=== PATIENT | female | born 1985 | race Caucasian/White ===

== ENCOUNTER 2020-08-27 00:19 | Observation (INO) ==
[2020-08-27] MEDS ORDERED: ONDANSETRON INJ 2 MG/ML 2 ML VIAL IV STA (00:45)
[2020-08-27] MEDS ORDERED: CAPSAICIN CR 0.075% 60 GM TUBE EXT STA (00:45)
[2020-08-27] MEDS ORDERED: MULTI-VITAMIN INFUSION 10 ML, THIAMINE HCL 100 MG, FOLIC ACID 1 MG in SODIUM CHLORIDE 0... IV ONE (00:45)
[2020-08-27] MEDS ORDERED: cloNIDine HCL 0.3 MG/24 HR TRANSDERM SYS TD STA (00:45)
[2020-08-27] MEDS ORDERED: MAGNESIUM SULFATE / D5W 1 GM/100 ML BAG IV STA (00:46)
[2020-08-27] MEDS ORDERED: FAMOTIDINE 20MG IV PUSH 20 MG/5 ML SYR IV STA (00:50)
[2020-08-27] MEDS ORDERED: SODIUM CHLORIDE 0.9% 1000ML 1,000 ML IV ONE ×3 (00:51→03:31)
--- NOTE | 2020-08-27 01:03 | Emergency Department Note ---
Impression & Plan Alcohol withdrawal, Alcohol intoxication, Low bicarbonate level, Acute hyponatremia ED Provider Note NAME: PHILLIP AMARO AGE: 35 SEX: F : 1985 ARRIVES VIA: Walk-In INFORMANT: Patient, friend ED PROVIDER(S): Brodie Stroud MD CHIEF COMPLAINT: vomiting HPI: This is a 35-year-old female who has a history of PTSD as well as alcohol withdrawal. [facility] to [facility]. She reports she received a liter of normal saline bolus and some Zofran however they discharged her and the patient continued to vomit. [facility] that the last time she was here she saw casework manager who was able to get her into [facility] [place] for detox. She reports her last alcoholic drink was this morning. In addition the patient reports she is also previously had a seizure from alcohol withdrawal. She has not taken anything for the vomiting prior to arrival. Upon arrival to the emergency department the patient vomited here. Her significant other reports that the patient [facility] The patient reports she has a history of pancreatitis as well. ROS: See above HPI for pertinent positives & negatives. A total of 10 systems reviewed and were otherwise negative. PAST MEDICAL HISTORY: See Below PAST SURGICAL HISTORY: See Below FAMILY HISTORY: See Below SOCIAL HISTORY: See Below HOME MEDICATIONS: See Below ALLERGIES: See Below VITALS: See Below PHYSICAL EXAMINATION: VITAL SIGNS - Vital signs and nursing notes were reviewed. GENERAL - 35-year-old female appearing stated age who is in no acute distress. SKIN - Without rashes. HEAD - NC/AT. EYES - PERRL with EOMI bilaterally. Sclera anicteric. Palpebral conjunctiva pink and moist with no injection noted. EARS - No deformities of external structures noted on gross examination bilaterally. NOSE - Midline and without cyanosis. No epistaxis or purulent drainage noted. Septum midline without deviation or septal hematoma noted. MOUTH/OROPHARYNX - Without perioral cyanosis. Buccal mucosa pink and moist and without leukoplakia. Tongue midline with equal elevation of palate bilaterally. No tonsillar hypertrophy, erythema, or exudates noted. NECK - Neck with FROM. Supple to palpation. No nuchal rigidity. LUNGS - Chest wall symmetric without accessory muscle use, intercostals retractions, or central cyanosis. Normal vesicular breath sounds CTA B/L. No wheezes, rales, or rhonchi appreciated. CARDIAC - RRR with S1/S2. No murmur, rubs, or gallops appreciated. ABDOMEN - Abdominal contour without pulsations or visible masses. BS normoactive all four quadrants. No tenderness, palpable masses, hepatosplenomegaly, or ascites noted. EXTREMITIES - No clubbing or peripheral cyanosis. No pretibial edema present. +3/5 radial, posterior tibial, and dorsalis pedis pulses palpated throughout. +5/5 strength noted in UE/LE bilaterally. NEUROLOGIC - Cranial nerves II through XII grossly intact. Sensory intact to light touch throughout. Patellar reflexes +2/4. PSYCH - A&Ox3 and cooperates fully with examiner. Pt is very pleasant and interacts well with examiner. MEDICAL DECISION MAKING: Patient was seen and evaluated as above in room C7. Review was performed of nursing notes and vital signs. I did review pertinent previous visits and patient history. After obtaining a thorough history and physical examination the above work up was performed. This is a 35-year-old female who presents emergency department complaining about alcohol withdrawal. The patient is tachycardic upon arrival to the emergency department. She does have a history of seizures previously. Her CO2 was found to be 8 therefore VBG was drawn which did confirm a low CO2 level. Serum osmolality is unexpectedly high. She was given 3 L of fluid here in the emergency department as well as a banana bag. She was given Ativan as well as a clonidine patch droperidol as well as Benadryl for headache. Repeat examination revealed improvement the patient's symptoms. I did discuss the case with the hospitalist who did agree to admit the patient. Patient is in agreement with the treatment plan. An order was placed for continuous cardiac monitoring. The monitor shows a rate of 135 with Sinus tach rhythm. The patient was evaluated during a period of high volume and high acuity during the global COVID-19 pandemic, and that diagnosis was suspected/considered upon their initial presentation. Their evaluation, treatment and testing was consistent with current guidelines for patients who present with complaints or symptoms that may be related to COVID-19. Patient was seen while provider was wearing PPE. Triage Nursing notes reviewed. Prior medical records reviewed Vital Signs: reviewed and remarkable for no significant abnormalities Differential diagnosis: Alcohol intoxication, toxicologic, infection, hypoglycemia, electrolyte abnormalities, cardiac sources, intracerebral event, neurologic, trauma, as well as other pathologies. ER treatment provided: See below Diagnostics interpreted by me: ECG: EKG shows a sinus tachycardia ST and T wave abnormality QTC is 516 ventricular rate is 111 EKG is compared to 05/27/2018 no significant change was found. Laboratory studies: As stated above and show below. Imaging studies: CT chest with contrast: Suboptimal timing of contrast bolus significantly limits evaluation for pulmonary embolism. No evidence of central pulmonary embolism. Segmental and smaller emboli cannot be excluded. Mural thickening of distal esophagus and there is probable small sliding hiatal hernia. Findings are most suspicious for reflux esophagitis. Consider nonemergent correlation with endoscopy or upper GI series as clinically warranted. no aortic aneurysm or dissection Lungs are clear. Scoliosis. CT abdomen pelvis with contrast: Hepatic steatosis. Colonic interposition. No free air or free fluid. No bowel obstruction. Hyperdense material within the appendix, but no evidence of acute appendicitis. IUD. Small organs otherwise unremarkable scoliosis grade 1 spondylitic An terolisthesis of L5 and S1 Consultation(s): Internal Medicine ED COURSE: Critical Care: I have personally spent greater than 30 minutes of critical care time in the direct management of this patient. This includes bedside care, interpretation of diagnostic studies, and testing, discussion with consultants, patient, and family members, and other required patient management activities. This 30 minutes is in excess of all separately billable procedures. Past Med/Surg History Medical History (Updated 08/27/20 @ 06:17 by Nicolas Lao MD) Alcohol abuse Anxiety with depression Hepatic steatosis No pertinent family history Pancreatitis PTSD (post-traumatic stress disorder) Surgical History Previous section Social History Smoking Status: Never smoker Preferred Language: Kinyarwanda Feels Safe at Home: Yes Allergies Allergies Allergy/AdvReac Type Severity Reaction Status Date / Time No Known Allergies Allergy Unverified 08/27/20 01:26 Home Meds Home Medications Medication Instructions Recorded Confirmed gabapentin 300 mg PO TID 05/27/18 08/27/20 hydroxyzine pamoate [Vistaril] 50 mg PO TID 05/27/18 08/27/20 multivitamin 1 tab PO QAM 05/27/18 08/27/20 linaclotide [Linzess] 145 mcg PO DAILY 07/10/20 08/27/20 prazosin 3 mg PO HS 07/10/20 08/27/20 cyclobenzaprine 10 mg PO BID PRN 08/27/20 08/27/20 duloxetine 60 mg PO DAILY 08/27/20 08/27/20 naltrexone 25 mg PO DAILY 08/27/20 08/27/20 pantoprazole 20 mg PO DAILY 08/27/20 08/27/20 quetiapine 200 mg PO HS 08/27/20 08/27/20 Results & Data (ED) Vital Signs Vital Signs - 24 hr 08/27/20 00:28 08/27/20 00:30 08/27/20 00:46 Temperature 36.6 C Temperature Source Temporal Artery Scan Pulse Rate 135 H 119 H Pulse Rate [Right Finger] Pulse Rate from SpO2 Sensor 123 H Respiratory Rate 20 18 Respiratory Effort / Characteristics Non-Labored Spontaneous Respiratory Depth Respiratory Pattern Regular Rapid/Shallow Blood Pressure 151/104 H 151/105 H Blood Pressure [Right Arm] Blood Pressure Mean 119 120 Blood Pressure Mean [Right Arm] Blood Pressure Position [Right Arm] Pulse Oximetry 97 99 Oxygen Delivery Method Room Air Room Air Room Air Sepsis Recent Fever Within 48 Hours No Sepsis New/Unexplained Change in Mental Status N/A Sepsis Action Taken by Nursing No Action Required 08/27/20 00:59 08/27/20 01:48 08/27/20 02:23 Temperature Temperature Source Pulse Rate 119 H 112 H 116 H Pulse Rate [Right Finger] Pulse Rate from SpO2 Sensor 118 H 113 H 117 H Respiratory Rate 18 17 14 Respiratory Effort / Characteristics Respiratory Depth Respiratory Pattern Blood Pressure 154/102 H 160/108 H 179/99 H Blood Pressure [Right Arm] Blood Pressure Mean 119 125 125 Blood Pressure Mean [Right Arm] Blood Pressure Position [Right Arm] Pulse Oximetry 99 99 99 Oxygen Delivery Method Room Air Room Air Room Air Sepsis Recent Fever Within 48 Hours Sepsis New/Unexplained Change in Mental Status Sepsis Action Taken by Nursing 08/27/20 02:30 08/27/20 03:00 08/27/20 03:30 Temperature Temperature Source Pulse Rate 122 H 110 H 118 H Pulse Rate [Right Finger] Pulse Rate from SpO2 Sensor 123 H 111 H 118 H Respiratory Rate 14 21 27 H Respiratory Effort / Characteristics Respiratory Depth Respiratory Pattern Blood Pressure 155/108 H 176/107 H 143/88 H Blood Pressure [Right Arm] Blood Pressure Mean 123 130 106 Blood Pressure Mean [Right Arm] Blood Pressure Position [Right Arm] Pulse Oximetry 99 98 99 Oxygen Delivery Method Room Air Room Air Room Air Sepsis Recent Fever Within 48 Hours Sepsis New/Unexplained Change in Mental Status Sepsis Action Taken by Nursing 08/27/20 03:59 08/27/20 04:00 08/27/20 04:30 Temperature Temperature Source Pulse Rate 118 H 119 H 115 H Pulse Rate [Right Finger] 113 H Pulse Rate from SpO2 Sensor 118 H 118 H 114 H Respiratory Rate 24 28 H 24 Respiratory Effort / Characteristics Respiratory Depth Normal Respiratory Pattern Blood Pressure 146/88 H 145/86 H 140/88 Blood Pressure [Right Arm] 140/88 Blood Pressure Mean 107 105 105 Blood Pressure Mean [Right Arm] 105 Blood Pressure Position [Right Arm] Sitting Pulse Oximetry 99 99 99 Oxygen Delivery Method Room Air Room Air Room Air Sepsis Recent Fever Within 48 Hours Sepsis New/Unexplained Change in Mental Status Sepsis Action Taken by Nursing 08/27/20 05:00 08/27/20 05:30 08/27/20 05:52 Temperature Temperature Source Pulse Rate 110 H 106 H 109 H Pulse Rate [Right Finger] Pulse Rate from SpO2 Sensor 110 H 108 H 109 H Respiratory Rate 26 H 25 H 18 Respiratory Effort / Characteristics Respiratory Depth Respiratory Pattern Blood Pressure 149/86 H 140/86 120/67 Blood Pressure [Right Arm] Blood Pressure Mean 107 104 84 Blood Pressure Mean [Right Arm] Blood Pressure Position [Right Arm] Pulse Oximetry 99 99 99 Oxygen Delivery Method Room Air Room Air Room Air Sepsis Recent Fever Within 48 Hours Sepsis New/Unexplained Change in Mental Status Sepsis Action Taken by Nursing 08/27/20 06:00 Temperature Temperature Source Pulse Rate 108 H Pulse Rate [Right Finger] Pulse Rate from SpO2 Sensor 109 H Respiratory Rate 21 Respiratory Effort / Characteristics Respiratory Depth Respiratory Pattern Blood Pressure 127/73 Blood Pressure [Right Arm] Blood Pressure Mean 91 Blood Pressure Mean [Right Arm] Blood Pressure Position [Right Arm] Pulse Oximetry 99 Oxygen Delivery Method Room Air Sepsis Recent Fever Within 48 Hours Sepsis New/Unexplained Change in Mental Status Sepsis Action Taken by Nursing Laboratory Data Result diagrams: 08/27/20 01:34 08/27/20 01:34 Lab Results 05/30/21 05/30/21 05/30/21 Range/Units 01:34 01:34 01:34 WBC 12.80 H (4.8-10.8) K/uL RBC 4.77 (4.2-5.4) M/uL Hgb 15.4 (12.0-16.0) g/dL POC Hgb (12.0-16.0) g/dl Hct 45.1 (37-47) % POC Hct (37-47) % MCV 94.5 (80-100) fL MCH 32.3 (25-34) pg MCHC 34.1 (32-36) g/dL RDW Std Deviation 52.7 H (36.4-46.3) fL RDW Coeff of [place] 15.1 H (11.5-14.5) % Plt Count 291 (130-400) K/uL MPV 10.3 (7.4-10.4) fL Immature Gran % (Auto) 0.2 % Neut % (Auto) 88.8 % Lymph % (Auto) 7.1 % [place] % (Auto) 3.7 % Eos % (Auto) 0.0 % Baso % (Auto) 0.2 % Neut # (Auto) 11.38 H (1.4-6.5) K/uL Lymph # (Auto) 0.91 L (1.2-3.4) K/uL [place] # (Auto) 0.47 (0.11-0.59) K/uL Eos # (Auto) 0.00 (0-0.5) K/uL Baso # (Auto) 0.02 (0-0.2) K/uL Immature Gran # (Auto) 0.02 (0.00-0.02) K/uL POC pH (7.35-7.45) POC pCO2 (35-46) mmHg POC pO2 (80-95) mmHg POC HCO3 (19-24) gina/L POC Total CO2 (24-31) mmol/L POC Base Excess (-9-1.8) gina/L POC ABG O2 Sat (90-95) % VBG pH (7.36-7.41) VBG pCO2 (38-50) mmHg VBG pO2 mmHg VBG HCO3 mmol/L VBG O2 Saturation % VBG Base Excess mEq/L Barometric Pressure mm/Hg POC Sodium (135-144) mmol/L Sodium (136-145) mmol/L POC Potassium (3.3-5.0) mmol/L Potassium (3.5-5.1) mmol/L Chloride (98-107) mmol/L Carbon Dioxide (21-32) mmol/L Anion Gap (3-11) BUN (7-18) mg/dl Creatinine (0.6-1.2) mg/dl Est Cr Clr Drug Dosing ml/min Est GFR ( Amer) ml/min Est GFR (Non-Af Amer) ml/min BUN/Creatinine Ratio (10-20) Glucose (70-99) mg/dl Osmolality (280-300) mOsm/kg Calcium (8.5-10.1) mg/dl Magnesium (1.8-2.4) mg/dl Total Bilirubin (0.2-1) mg/dl AST (15-37) U/L ALT (12-78) U/L Alkaline Phosphatase (45-117) U/L Total Creatine Kinase (26-192) U/L CK-MB (CK-2) (0.5-3.6) ng/ml CK/CKMB % Calc (0-3.0) Troponin I (0-0.045) ng/ml Total Protein (6.4-8.2) gm/dl Albumin (3.4-5.0) gm/dl Globulin (2.5-4.0) gm/dl Albumin/Globulin Ratio (0.9-2) Lipase (73-393) U/L HCG, Qual Negative (Negative) Urine Color Urine Appearance (Clear) Urine pH (4.5-7.5) Ur Specific [place] (1.000-1.030) Urine Protein (Negative) Urine Glucose (UA) (Negative) Urine Ketones (Negative) Urine Blood (Negative) Urine Nitrite (Negative) Urine Bilirubin (Negative) Urine Urobilinogen (Negative) Ur Leukocyte Esterase (Negative) Urine WBC (Auto) (0-5) /hpf Urine RBC (Auto) (0-4) /hpf U Hyaline Cast (Auto) (0-5) /lpf U Epithel Cells (Auto) (0-5) /lpf Urine Bacteria (Auto) (Negative) Urine Opiates Screen (Neg) Ur Methadone, Qual (Neg) Urine Barbiturates (Neg) Ur Phencyclidine (PCP) (Neg) U Amphetamin/Meth Scrn (Neg) MDMA (Ecstasy) Screen (Neg) U Benzodiazepines Scrn (Neg) Ur Cocaine Metabolite (Neg) U Marijuana (THC) Screen (Neg) Ethyl Alcohol mg/dL 115.0 H (0-3) mg/dl COVID-19 Eval Order SARS-CoV-2 (PCR) (Negative) 08/27/20 08/27/20 08/27/20 Range/Units 01:34 01:34 01:58 WBC (4.8-10.8) K/uL RBC (4.2-5.4) M/uL Hgb (12.0-16.0) g/dL POC Hgb (12.0-16.0) g/dl Hct (37-47) % POC Hct (37-47) % MCV (80-100) fL MCH (25-34) pg MCHC (32-36) g/dL RDW Std Deviation (36.4-46.3) fL RDW Coeff of Dallin (11.5-14.5) % Plt Count (130-400) K/uL MPV (7.4-10.4) fL Immature Gran % (Auto) % Neut % (Auto) % Lymph % (Auto) % [place] % (Auto) % Eos % (Auto) % Baso % (Auto) % Neut # (Auto) (1.4-6.5) K/uL Lymph # (Auto) (1.2-3.4) K/uL [place] # (Auto) (0.11-0.59) K/uL Eos # (Auto) (0-0.5) K/uL Baso # (Auto) (0-0.2) K/uL Immature Gran # (Auto) (0.00-0.02) K/uL POC pH (7.35-7.45) POC pCO2 (35-46) mmHg POC pO2 (80-95) mmHg POC HCO3 (19-24) gina/L POC Total CO2 (24-31) mmol/L POC Base Excess (-9-1.8) gina/L POC ABG O2 Sat (90-95) % VBG pH (7.36-7.41) VBG pCO2 (38-50) mmHg VBG pO2 mmHg VBG HCO3 mmol/L VBG O2 Saturation % VBG Base Excess mEq/L Barometric Pressure mm/Hg POC Sodium (135-144) mmol/L Sodium 129 L (136-145) mmol/L POC Potassium (3.3-5.0) mmol/L Potassium 5.0 (3.5-5.1) mmol/L Chloride 98 (98-107) mmol/L Carbon Dioxide 8 L* (21-32) mmol/L Anion Gap 23.0 H (3-11) BUN 9 (7-18) mg/dl Creatinine 0.96 (0.6-1.2) mg/dl Est Cr Clr Drug Dosing 103.2 ml/min Est GFR ( Amer) 88.2 ml/min Est GFR (Non-Af Amer) 76.1 ml/min BUN/Creatinine Ratio 9.0 L (10-20) Glucose 83 (70-99) mg/dl Osmolality 316 H (280-300) mOsm/kg Calcium 8.7 (8.5-10.1) mg/dl Magnesium 2.2 (1.8-2.4) mg/dl Total Bilirubin 0.9 (0.2-1) mg/dl AST 129 H (15-37) U/L ALT 94 H (12-78) U/L Alkaline Phosphatase 90 (45-117) U/L Total Creatine Kinase 112 (26-192) U/L CK-MB (CK-2) 1.4 (0.5-3.6) ng/ml CK/CKMB % Calc 1.3 (0-3.0) Troponin I < 0.015 (0-0.045) ng/ml Total Protein 9.6 H (6.4-8.2) gm/dl Albumin 4.8 (3.4-5.0) gm/dl Globulin 4.8 H (2.5-4.0) gm/dl Albumin/Globulin Ratio 1.0 (0.9-2) Lipase 75 (73-393) U/L HCG, Qual (Negative) Urine Color Yellow Urine Appearance Cloudy A (Clear) Urine pH 5.0 (4.5-7.5) Ur Specific [place] 1.032 H (1.000-1.030) Urine Protein 3+ H (Negative) Urine Glucose (UA) Negative (Negative) Urine Ketones 4+ H (Negative) Urine Blood 2+ H (Negative) Urine Nitrite Negative (Negative) Urine Bilirubin Negative (Negative) Urine Urobilinogen Negative (Negative) Ur Leukocyte Esterase Negative (Negative) Urine WBC (Auto) 1-5 (0-5) /hpf Urine RBC (Auto) 10-30 H (0-4) /hpf U Hyaline Cast (Auto) 10-30 H (0-5) /lpf U Epithel Cells (Auto) >30 H (0-5) /lpf Urine Bacteria (Auto) Negative (Negative) Urine Opiates Screen (Neg) Ur Methadone, Qual (Neg) Urine Barbiturates (Neg) Ur Phencyclidine (PCP) (Neg) U Amphetamin/Meth Scrn (Neg) MDMA (Ecstasy) Screen (Neg) U Benzodiazepines Scrn (Neg) Ur Cocaine Metabolite (Neg) U Marijuana (THC) Screen (Neg) Ethyl Alcohol mg/dL (0-3) mg/dl COVID-19 Eval Order SARS-CoV-2 (PCR) (Negative) 08/27/20 08/27/20 08/27/20 Range/Units 01:58 03:06 03:17 WBC (4.8-10.8) K/uL RBC (4.2-5.4) M/uL Hgb (12.0-16.0) g/dL POC Hgb (12.0-16.0) g/dl Hct (37-47) % POC Hct (37-47) % MCV (80-100) fL MCH (25-34) pg MCHC (32-36) g/dL RDW Std Deviation (36.4-46.3) fL RDW Coeff of [place] (11.5-14.5) % Plt Count (130-400) K/uL MPV (7.4-10.4) fL Immature Gran % (Auto) % Neut % (Auto) % Lymph % (Auto) % [place] % (Auto) % Eos % (Auto) % Baso % (Auto) % Neut # (Auto) (1.4-6.5) K/uL Lymph # (Auto) (1.2-3.4) K/uL [place] # (Auto) (0.11-0.59) K/uL Eos # (Auto) (0-0.5) K/uL Baso # (Auto) (0-0.2) K/uL Immature Gran # (Auto) (0.00-0.02) K/uL POC pH (7.35-7.45) POC pCO2 (35-46) mmHg POC pO2 (80-95) mmHg POC HCO3 (19-24) gina/L POC Total CO2 (24-31) mmol/L POC Base Excess (-9-1.8) gina/L POC ABG O2 Sat (90-95) % VBG pH 7.16 L (7.36-7.41) VBG pCO2 25 L (38-50) mmHg VBG pO2 58 mmHg VBG HCO3 9 mmol/L VBG O2 Saturation 85.7 % VBG Base Excess -18.1 mEq/L Barometric Pressure 736.0 mm/Hg POC Sodium (135-144) mmol/L Sodium (136-145) mmol/L POC Potassium (3.3-5.0) mmol/L Potassium (3.5-5.1) mmol/L Chloride (98-107) mmol/L Carbon Dioxide (21-32) mmol/L Anion Gap (3-11) BUN (7-18) mg/dl Creatinine (0.6-1.2) mg/dl Est Cr Clr Drug Dosing ml/min Est GFR ( Amer) ml/min Est GFR (Non-Af Amer) ml/min BUN/Creatinine Ratio (10-20) Glucose (70-99) mg/dl Osmolality (280-300) mOsm/kg Calcium (8.5-10.1) mg/dl Magnesium (1.8-2.4) mg/dl Total Bilirubin (0.2-1) mg/dl AST (15-37) U/L ALT (12-78) U/L Alkaline Phosphatase (45-117) U/L Total Creatine Kinase (26-192) U/L CK-MB (CK-2) (0.5-3.6) ng/ml CK/CKMB % Calc (0-3.0) Troponin I (0-0.045) ng/ml Total Protein (6.4-8.2) gm/dl Albumin (3.4-5.0) gm/dl Globulin (2.5-4.0) gm/dl Albumin/Globulin Ratio (0.9-2) Lipase (73-393) U/L HCG, Qual (Negative) Urine Color Urine Appearance (Clear) Urine pH (4.5-7.5) Ur Specific [place] (1.000-1.030) Urine Protein (Negative) Urine Glucose (UA) (Negative) Urine Ketones (Negative) Urine Blood (Negative) Urine Nitrite (Negative) Urine Bilirubin (Negative) Urine Urobilinogen (Negative) Ur Leukocyte Esterase (Negative) Urine WBC (Auto) (0-5) /hpf Urine RBC (Auto) (0-4) /hpf U Hyaline Cast (Auto) (0-5) /lpf U Epithel Cells (Auto) (0-5) /lpf Urine Bacteria (Auto) (Negative) Urine Opiates Screen Neg (Neg) Ur Methadone, Qual Neg (Neg) Urine Barbiturates Neg (Neg) Ur Phencyclidine (PCP) Neg (Neg) U Amphetamin/Meth Scrn Neg (Neg) MDMA (Ecstasy) Screen Neg (Neg) U Benzodiazepines Scrn Neg (Neg) Ur Cocaine Metabolite Neg (Neg) U Marijuana (THC) Screen Neg (Neg) Ethyl Alcohol mg/dL (0-3) mg/dl COVID-19 Eval Order Covid19 at [facility] SARS-CoV-2 (PCR) (Negative) 08/27/20 08/27/20 Range/Units 03:17 05:15 WBC (4.8-10.8) K/uL RBC (4.2-5.4) M/uL Hgb (12.0-16.0) g/dL POC Hgb 15.0 (12.0-16.0) g/dl Hct (37-47) % POC Hct 44 (37-47) % MCV (80-100) fL MCH (25-34) pg MCHC (32-36) g/dL RDW Std Deviation (36.4-46.3) fL RDW Coeff of [place] (11.5-14.5) % Plt Count (130-400) K/uL MPV (7.4-10.4) fL Immature Gran % (Auto) % Neut % (Auto) % Lymph % (Auto) % [place] % (Auto) % Eos % (Auto) % Baso % (Auto) % Neut # (Auto) (1.4-6.5) K/uL Lymph # (Auto) (1.2-3.4) K/uL [place] # (Auto) (0.11-0.59) K/uL Eos # (Auto) (0-0.5) K/uL Baso # (Auto) (0-0.2) K/uL Immature Gran # (Auto) (0.00-0.02) K/uL POC pH 7.17 L* (7.35-7.45) POC pCO2 19 L (35-46) mmHg POC pO2 99 H (80-95) mmHg POC HCO3 7 L (19-24) gina/L POC Total CO2 7 L* (24-31) mmol/L POC Base Excess -22.0 L (-9-1.8) gina/L POC ABG O2 Sat 96.0 H (90-95) % VBG pH (7.36-7.41) VBG pCO2 (38-50) mmHg VBG pO2 mmHg VBG HCO3 mmol/L VBG O2 Saturation % VBG Base Excess mEq/L Barometric Pressure mm/Hg POC Sodium 131 L (135-144) mmol/L Sodium (136-145) mmol/L POC Potassium 6.7 H* (3.3-5.0) mmol/L Potassium (3.5-5.1) mmol/L Chloride (98-107) mmol/L Carbon Dioxide (21-32) mmol/L Anion Gap (3-11) BUN (7-18) mg/dl Creatinine (0.6-1.2) mg/dl Est Cr Clr Drug Dosing ml/min Est GFR ( Amer) ml/min Est GFR (Non-Af Amer) ml/min BUN/Creatinine Ratio (10-20) Glucose (70-99) mg/dl Osmolality (280-300) mOsm/kg Calcium (8.5-10.1) mg/dl Magnesium (1.8-2.4) mg/dl Total Bilirubin (0.2-1) mg/dl AST (15-37) U/L ALT (12-78) U/L Alkaline Phosphatase (45-117) U/L Total Creatine Kinase (26-192) U/L CK-MB (CK-2) (0.5-3.6) ng/ml CK/CKMB % Calc (0-3.0) Troponin I (0-0.045) ng/ml Total Protein (6.4-8.2) gm/dl Albumin (3.4-5.0) gm/dl Globulin (2.5-4.0) gm/dl Albumin/Globulin Ratio (0.9-2) Lipase (73-393) U/L HCG, Qual (Negative) Urine Color Urine Appearance (Clear) Urine pH (4.5-7.5) Ur Specific [place] (1.000-1.030) Urine Protein (Negative) Urine Glucose (UA) (Negative) Urine Ketones (Negative) Urine Blood (Negative) Urine Nitrite (Negative) Urine Bilirubin (Negative) Urine Urobilinogen (Negative) Ur Leukocyte Esterase (Negative) Urine WBC (Auto) (0-5) /hpf Urine RBC (Auto) (0-4) /hpf U Hyaline Cast (Auto) (0-5) /lpf U Epithel Cells (Auto) (0-5) /lpf Urine Bacteria (Auto) (Negative) Urine Opiates Screen (Neg) Ur Methadone, Qual (Neg) Urine Barbiturates (Neg) Ur Phencyclidine (PCP) (Neg) U Amphetamin/Meth Scrn (Neg) MDMA (Ecstasy) Screen (Neg) U Benzodiazepines Scrn (Neg) Ur Cocaine Metabolite (Neg) U Marijuana (THC) Screen (Neg) Ethyl Alcohol mg/dL (0-3) mg/dl COVID-19 Eval Order SARS-CoV-2 (PCR) NEGATIVE (Negative) Administered Medications Miscellaneous (Remove Clonidine Patch) 1 ea N/A CQWK JOSE F Stop: 09/26/20 00:44 Last Admin: 08/27/20 04:09 Dose: Not Given Documented by: [id number] Discontinued Medications Capsaicin (Capsaicin Cr 0.075% 60 Gm Tube) 1 appln EXT NOW STA Stop: 08/27/20 00:46 Last Admin: 08/27/20 01:36 Dose: 1 appln Documented by: [id number] Clonidine HCl (Clonidine Hcl 0.3 Mg/24 Hr Transderm Sys) 1 patch TD NOW STA Stop: 08/27/20 00:46 Last Admin: 08/27/20 01:38 Dose: 1 patch Documented by: [id number] Diphenhydramine HCl (Diphenhydramine 50 Mg/Ml Vial) 50 mg IV NOW STA Stop: 08/27/20 03:18 Last Admin: 08/27/20 03:29 Dose: 50 mg Documented by: [id number] Droperidol (Droperidol 5 Mg/2 Ml Vial) 1.25 mg IV ONE STA Stop: 08/27/20 03:18 Last Admin: 08/27/20 03:26 Dose: 1.25 mg Documented by: [id number] Multivitamins 10 ml/ Thiamine HCl 100 mg/ Folic Acid 1 mg/Sodium Chloride 1,011.2 mls @ 1,011.2 mls/hr IV .Q1H ONE Stop: 08/27/20 01:44 Last Infusion: 08/27/20 02:36 Dose: 0 mls/hr Documented by: [id number] Admin: 08/27/20 01:36 Dose: 1,011.2 mls/hr Documented by: [id number] Magnesium Sulfate/Dextrose (Magnesium Sulfate / D5w) 1 gm in 100 mls @ 100 mls/hr IV NOW STA Stop: 08/27/20 01:45 Last Infusion: 08/27/20 01:45 Dose: 0 mls/hr Documented by: [id number] Admin: 08/27/20 01:36 Dose: 100 mls/hr Documented by: [id number] Famotidine (Pepcid 20mg Iv Push) 20 mg in 5 mls @ 2.5 mls/min IV NOW STA Stop: 08/27/20 00:51 Last Admin: 08/27/20 01:37 Dose: 2.5 mls/min Documented by: [id number] Sodium Chloride (Nss 1000ml) 1,000 mls @ 999 mls/hr IV .Q1H1M ONE Stop: 08/27/20 01:51 Last Infusion: 08/27/20 02:40 Dose: 0 mls/hr Documented by: [id number] Admin: 08/27/20 01:39 Dose: 999 mls/hr Documented by: [id number] Lorazepam (Ativan) 1 mg in 2 mls @ 2 mls/min IV NOW STA Stop: 08/27/20 02:01 Last Admin: 08/27/20 02:17 Dose: 2 mls/min Documented by: [id number] Sodium Chloride (Nss 1000ml) 1,000 mls @ 999 mls/hr IV .Q1H1M ONE Stop: 08/27/20 03:29 Last Infusion: 08/27/20 05:08 Dose: 0 mls/hr Documented by: [id number] Admin: 08/27/20 03:32 Dose: 999 mls/hr Documented by: [id number] Acetaminophen (Ofirmev) 1,000 mg in 100 mls @ 400 mls/hr IV NOW STA Stop: 08/27/20 03:31 Last Infusion: 08/27/20 04:10 Dose: 0 mls/hr Documented by: [id number] Admin: 08/27/20 03:32 Dose: 400 mls/hr Documented by: [id number] Ioversol (Optiray 350 500ml) 120 ml IV ONCE ONE Stop: 08/27/20 02:32 Last Admin: 08/27/20 02:31 Dose: 120 ml Documented by: [id number] Ondansetron HCl (Ondansetron Inj 2 Mg/Ml 2 Ml Vial) 4 mg IV NOW STA Stop: 08/27/20 00:46 Last Admin: 08/27/20 01:38 Dose: 4 mg Documented by: [id number] Discharge Plan Visit Data Chief Complaint: Vomiting Stated Complaint: VOMITING,ABD PAIN,CHEST PAIN ED Provider: Brodie Stroud Discharge Problem: Alcohol withdrawal, Alcohol intoxication, Low bicarbonate level, Acute hyponatremia Forms Stand Alone Forms: [facility] [employer] Prescriptions Prescriptions: No Action multivitamin Tablet 1 tab PO QAM RF: 0 hydroxyzine pamoate [Vistaril] 50 mg Capsule 50 mg PO TID RF: 0 gabapentin 300 mg capsule 300 mg PO TID RF: 0 Linzess 145 mcg capsule 145 mcg PO DAILY RF: 0 prazosin 1 mg capsule 3 mg PO HS RF: 0 cyclobenzaprine 10 mg tablet 10 mg PO BID PRN (Reason: Muscle Spasm) RF: 0 duloxetine 60 mg capsule,delayed release(DR/EC) 60 mg PO DAILY RF: 0 naltrexone 50 mg tablet 25 mg PO DAILY RF: 0 quetiapine 200 mg tablet 200 mg PO HS RF: 0 pantoprazole 20 mg tablet,delayed release (DR/EC) 20 mg PO DAILY RF: 0 Discharge Problem: Alcohol withdrawal Qualifiers: Complication of substance-induced condition: with unspecified complication Qualified Code(s): F10.239 - Alcohol dependence with withdrawal, unspecified Alcohol intoxication Qualifiers: Complication of substance-induced condition: uncomplicated Qualified Code(s): F10.920 - Alcohol use, unspecified with intoxication, uncomplicated
[2020-08-27 01:48] LABS: Hematocrit (blood only) 45.1 % (37-47); Hemoglobin 15.4 g/dL (12.0-16.0); Mean Corpuscular Hemoglobin 32.3 pg (25-34); Mean Corpuscular Hgb Conc 34.1 g/dL (32-36); Mean Corpuscular Volume 94.5 fL (80-100); Mean Platelet Volume 10.3 fL (7.4-10.4); Platelet Count 291 K/uL (130-400); RDW Coefficient of Variation 15.1 % (11.5-14.5); RDW Standard Deviation 52.7 fL (36.4-46.3); Red Blood Count 4.77 M/uL (4.2-5.4)
[2020-08-27] MEDS ORDERED: LORazepam 1 MG/2 ML VIAL IV STA (02:00)
[2020-08-27 02:06] LABS: Basophils # (auto) 0.02 K/uL (0-0.2); Basophils % (auto) 0.2 %; Immature Granulocytes # (auto) 0.02 K/uL (0.00-0.02); Immature Granulocytes % (auto) 0.2 %; Lymphocytes # (auto) 0.91 K/uL (1.2-3.4); Lymphocytes % (auto) 7.1 %; Monocytes # (auto) 0.47 K/uL (0.11-0.59); Monocytes % (auto) 3.7 %; Neutrophils # (auto) 11.38 K/uL (1.4-6.5); Neutrophils % (auto) 88.8 %
[2020-08-27 02:10] LABS: Pregnancy Test, Serum Negative (Negative)
[2020-08-27 02:20] LABS: Alanine Aminotransferase 94 U/L (12-78); Albumin Level 4.8 gm/dl (3.4-5.0); Alkaline Phosphatase 90 U/L (45-117); Aspartate Aminotransferase 129 U/L (15-37); Bilirubin,Total 0.9 mg/dl (0.2-1); Blood Urea Nitrogen 9 mg/dl (7-18); Calcium 8.7 mg/dl (8.5-10.1); Carbon Dioxide 8 mmol/L (21-32); Chloride 98 mmol/L (98-107); Creatine Kinase 112 U/L (26-192); Creatine Kinase MB 1.4 ng/ml (0.5-3.6); Creatinine Clr Calc Pharmacy 103.2 ml/min; Est GFR (African American) 88.2 ml/min; Est GFR (Non-African American) 76.1 ml/min; Globulin 4.8 gm/dl (2.5-4.0); Glucose 83 mg/dl (70-99); Lipase 75 U/L (73-393); Magnesium 2.2 mg/dl (1.8-2.4); Sodium 129 mmol/L (136-145); Total Protein 9.6 gm/dl (6.4-8.2); Troponin I < 0.015 ng/ml (0-0.045)
[2020-08-27 02:22] LABS: Appearance Urine Cloudy (Clear); Bacteria Urine Automated Negative (Negative); Bilirubin Urine Negative (Negative); Blood Urine 2+ (Negative); Color Urine Yellow; Epithelial Cell Urine Auto >30 /lpf (0-5); Glucose Urine UA Negative (Negative); Ketones Urine 4+ (Negative); Leukocyte Esterase Urine Negative (Negative); Nitrite Urine Negative (Negative); Protein Urine 3+ (Negative); Specific Gravity Urine 1.032 (1.000-1.030); Urobilinogen Urine Negative (Negative)
[2020-08-27] MEDS ORDERED: OPTIRAY 350 500ml IV ONE (02:31)
[2020-08-27 02:37] LABS: Amphetamines+Metham, Urine Neg (Neg); Barbiturates, Urine Neg (Neg); Benzodiazepine, Urine Neg (Neg); Cocaine, Urine Neg (Neg); MDMA (Ecstacy), Urine Neg (Neg); Methadone, Urine Neg (Neg); Opiate, Urine Neg (Neg); Phencyclidine, Urine Neg (Neg)
[2020-08-27] MEDS ORDERED: ACETAMINOPHEN 1,000 MG/100 ML VIAL IV STA (03:17)
[2020-08-27] MEDS ORDERED: diphenhydrAMINE 50 MG/ML VIAL IV STA (03:17)
[2020-08-27] MEDS ORDERED: DROPERIDOL 5 MG/2 ML VIAL IV STA (03:17)
[2020-08-27 03:26] LABS: Base Excess VBG -18.1 mEq/L; Oxygen Saturation VBG 85.7 %; pH VBG 7.16 (7.36-7.41)
[2020-08-27 05:30] LABS: iSTAT Arterial Blood Gas HCO3 7 meg/L (19-24); iSTAT Arterial Blood Gas pCO2 19 mmHg (35-46); iSTAT Arterial Blood Gas pH 7.17 (7.35-7.45); iSTAT Arterial Blood Gas pO2 99 mmHg (80-95); iSTAT Carbon Dioxide 7 mmol/L (24-31); iSTAT Hematocrit 44 % (37-47); iSTAT Potassium 6.7 mmol/L (3.3-5.0); iSTAT Sodium 131 mmol/L (135-144)
--- NOTE | 2020-08-27 05:43 | History & Physical Report ---
Date of Service August 27, 2020 Assessment & Plan (1) Admitted to intensive care unit: Admit to intensive care unit for treatment of severe metabolic acidosis/high osmolal gap/ alcohol withdrawal- Measured osmolality 316, corrected osmolality 296.91, osmolality gap 19.09 N.p.o. status Consult brakeshoe repairer Dr. Neumann Present on Admission?: Yes (2) Metabolic acidosis, increased anion gap: Received 4 L of IV fluids while in ED. Starting on bicarb drip Serial BMP and magnesium levels Work-up for toxic ingestion due to high osmolal gap Present on Admission?: Yes (3) Alcohol withdrawal: AWSS protocol with IV Ativan Present on Admission?: Yes (4) Hepatic steatosis: CT demonstrates fatty liver. AST 129, ALT 94 At last visit on 07/10/2020, AST 759, ALT 341 and total bilirubin 1.6 Present on Admission?: Yes (5) Reflux esophagitis: Placed on famotidine 20 mg IV every 12 hours Present on Admission?: Yes (6) PTSD (post-traumatic stress disorder): PTSD/anxiety with depression- Holding present medications. Consult psychiatry Present on Admission?: Yes (7) Anxiety with depression: See above Present on Admission?: Yes History of Present Illness Chief Complaint: The patient presents to the emergency department with symptoms of alcohol withdrawal including nausea and vomiting, for which she initially reported to the [facility] emergency department for detox earlier in the day, where she reports receiving 1 L of normal saline, and Zofran, and then was discharged to home. She continued to vomit, so she presents to [facility] ED for further assessment and treatment Primary Care Provider: Kris Cheung The patient is a 35-year-old female with a past medical history including pancreatitis, muscle spasm, anxiety, depression, major depressive disorder, gastroparesis, GERD, PTSD and alcohol abuse. She was most recently seen in the emergency department here from on 07/11/2020, for PTSD with worsening anxiety/depression and increased alcohol intake, and was accepted to [facility] for 201 voluntary admission at that time. The patient presents to the emergency department today with the above history. Work-up in the emergency department included following studies: CT angiography of chest was negative for PE but a limited study. CT abdomen pelvis suggest reflux esophagitis and fatty liver. Abnormal laboratories include the following: WBC 12.80 with normal differential, sodium 129, potassium 5.0, chloride 98, bicarb 8, anion gap 23, serum osmolality 316, AST 129, ALT 94, total protein 9.6, globulin 4.6, qualitative hCG negative, urine drug screen negative, alcohol level 115.0, COVID-19 negative. ABG: pH 7.17, PCO2 19, PO2 99, bicarb 7 and O2 sat 96% on room air. Patient is being admitted to the ICU Allergies Allergy/AdvReac Type Severity Reaction Status Date / Time No Known Allergies Allergy Unverified 08/27/20 01:26 Home Medications Medication Instructions Recorded Confirmed Type gabapentin 300 mg PO TID 05/27/18 08/27/20 History hydroxyzine pamoate [Vistaril] 50 mg PO TID 05/27/18 08/27/20 History multivitamin 1 tab PO QAM 05/27/18 08/27/20 History linaclotide [Linzess] 145 mcg PO DAILY 07/10/20 08/27/20 History prazosin 3 mg PO HS 07/10/20 08/27/20 History cyclobenzaprine 10 mg PO BID PRN 08/27/20 08/27/20 History duloxetine 60 mg PO DAILY 08/27/20 08/27/20 History naltrexone 25 mg PO DAILY 08/27/20 08/27/20 History pantoprazole 20 mg PO DAILY 08/27/20 08/27/20 History quetiapine 200 mg PO HS 08/27/20 08/27/20 History Past Med/Surg History Medical History Alcohol abuse No pertinent family history Pancreatitis Surgical History Previous section Social History Smoking Status: Never smoker Preferred Language: Luxembourgish Feels Safe at Home: Yes Review of Systems Review of Systems: Unobtainable due to cognitive status Physical Exam Physical Exam: The patient is sedated, well developed and well nourished, normocephalic and atraumatic, lying in bed and in no acute distress. HEENT--PERRL, EOMI, mucous membranes and oropharynx dry. Neck--supple. No JVD. No bruits. Thyroid normal, trachea midline, no adenopathy. Heart--normal S1 and S2. No murmurs, rubs or gallops. Lungs--clear bilaterally, no respiratory distress, no accessory muscle use. Abdomen--normal bowel sounds and soft. Nontender. Nondistended, no hernias or masses, no organomegaly. Extremities--no cyanosis or clubbing. No edema. Dermatologic--normal skin turgor, normal color, no abnormal lymph nodes, no rash. Neurologic--cranial nerves II through XII grossly intact. Rheumatologic--limited exam Psychiatric--sedated Results & Data Results & Data ([facility]) Vital Signs (Past 12 Hours) Vital Signs Temp Pulse Pulse Resp BP BP Pulse Ox 08/27/20 04:30 115 H 24 140/88 99 08/27/20 04:00 119 H 113 H 28 H 145/86 H 140/88 99 08/27/20 03:59 118 H 24 146/88 H 99 08/27/20 03:30 118 H 27 H 143/88 H 99 08/27/20 03:00 110 H 21 176/107 H 98 08/27/20 02:30 122 H 14 155/108 H 99 08/27/20 02:23 116 H 14 179/99 H 99 08/27/20 01:48 112 H 17 160/108 H 99 08/27/20 00:59 119 H 18 154/102 H 99 08/27/20 00:46 119 H 18 151/105 H 99 08/27/20 00:28 97.9 F 135 H 20 151/104 H 97 Laboratory Results Laboratory Results WBC 12.80 K/uL (4.8-10.8) H 08/27/20 01:34 RBC 4.77 M/uL (4.2-5.4) 08/27/20 01:34 Hgb 15.4 g/dL (12.0-16.0) 08/27/20 01:34 POC Hgb 15.0 g/dl (12.0-16.0) 08/27/20 05:15 Hct 45.1 % (37-47) 08/27/20 01:34 POC Hct 44 % (37-47) 08/27/20 05:15 MCV 94.5 fL (80-100) 08/27/20 01:34 MCH 32.3 pg (25-34) 08/27/20 01:34 MCHC 34.1 g/dL (32-36) 08/27/20 01:34 RDW Std Deviation 52.7 fL (36.4-46.3) H 08/27/20 01:34 RDW Coeff of Dallin 15.1 % (11.5-14.5) H 08/27/20 01:34 Plt Count 291 K/uL (130-400) 08/27/20 01:34 MPV 10.3 fL (7.4-10.4) 08/27/20 01:34 Immature Gran % (Auto) 0.2 % 08/27/20 01:34 Neut % (Auto) 88.8 % 08/27/20 01:34 Lymph % (Auto) 7.1 % 08/27/20 01:34 Edwards % (Auto) 3.7 % 08/27/20 01:34 Eos % (Auto) 0.0 % 08/27/20 01:34 Baso % (Auto) 0.2 % 08/27/20 01:34 Neut # (Auto) 11.38 K/uL (1.4-6.5) H 08/27/20 01:34 Lymph # (Auto) 0.91 K/uL (1.2-3.4) L 08/27/20 01:34 Edwards # (Auto) 0.47 K/uL (0.11-0.59) 08/27/20 01:34 Eos # (Auto) 0.00 K/uL (0-0.5) 08/27/20 01:34 Baso # (Auto) 0.02 K/uL (0-0.2) 08/27/20 01:34 Immature Gran # (Auto) 0.02 K/uL (0.00-0.02) 08/27/20 01:34 POC pH 7.17 (7.35-7.45) L* 08/27/20 05:15 POC pCO2 19 mmHg (35-46) L 08/27/20 05:15 POC pO2 99 mmHg (80-95) H 08/27/20 05:15 POC HCO3 7 gina/L (19-24) L 08/27/20 05:15 POC Total CO2 7 mmol/L (24-31) L* 08/27/20 05:15 POC Base Excess -22.0 gina/L (-9-1.8) L 08/27/20 05:15 POC ABG O2 Sat 96.0 % (90-95) H 08/27/20 05:15 VBG pH 7.16 (7.36-7.41) L 08/27/20 03:06 VBG pCO2 25 mmHg (38-50) L 08/27/20 03:06 VBG pO2 58 mmHg 08/27/20 03:06 VBG HCO3 9 mmol/L 08/27/20 03:06 VBG O2 Saturation 85.7 % 08/27/20 03:06 VBG Base Excess -18.1 mEq/L 08/27/20 03:06 Barometric Pressure 736.0 mm/Hg 08/27/20 03:06 POC Sodium 131 mmol/L (135-144) L 08/27/20 05:15 Sodium 129 mmol/L (136-145) L 08/27/20 01:34 POC Potassium 6.7 mmol/L (3.3-5.0) H* 08/27/20 05:15 Potassium 5.0 mmol/L (3.5-5.1) 08/27/20 01:34 Chloride 98 mmol/L (98-107) 08/27/20 01:34 Carbon Dioxide 8 mmol/L (21-32) L* 08/27/20 01:34 Anion Gap 23.0 (3-11) H 08/27/20 01:34 BUN 9 mg/dl (7-18) 08/27/20 01:34 Creatinine 0.96 mg/dl (0.6-1.2) 08/27/20 01:34 Est Cr Clr Drug Dosing 103.2 ml/min 08/27/20 01:34 Est GFR ( Amer) 88.2 ml/min 08/27/20 01:34 Est GFR (Non-Af Amer) 76.1 ml/min 08/27/20 01:34 BUN/Creatinine Ratio 9.0 (10-20) L 08/27/20 01:34 Glucose 83 mg/dl (70-99) 08/27/20 01:34 Osmolality 316 mOsm/kg (280-300) H 08/27/20 01:34 Calcium 8.7 mg/dl (8.5-10.1) 08/27/20 01:34 Magnesium 2.2 mg/dl (1.8-2.4) 08/27/20 01:34 Total Bilirubin 0.9 mg/dl (0.2-1) 08/27/20 01:34 AST 129 U/L (15-37) H 08/27/20 01:34 ALT 94 U/L (12-78) H 08/27/20 01:34 Alkaline Phosphatase 90 U/L (45-117) 08/27/20 01:34 Total Creatine Kinase 112 U/L (26-192) 08/27/20 01:34 CK-MB (CK-2) 1.4 ng/ml (0.5-3.6) 08/27/20 01:34 CK/CKMB % Calc 1.3 (0-3.0) 08/27/20 01:34 Troponin I < 0.015 ng/ml (0-0.045) 08/27/20 01:34 Total Protein 9.6 gm/dl (6.4-8.2) H 08/27/20 01:34 Albumin 4.8 gm/dl (3.4-5.0) 08/27/20 01:34 Globulin 4.8 gm/dl (2.5-4.0) H 08/27/20 01:34 Albumin/Globulin Ratio 1.0 (0.9-2) 08/27/20 01:34 Lipase 75 U/L (73-393) 08/27/20 01:34 HCG, Qual Negative (Negative) 08/27/20 01:34 Urine Color Yellow 08/27/20 01:58 Urine Appearance Cloudy (Clear) A 08/27/20 01:58 Urine pH 5.0 (4.5-7.5) 08/27/20 01:58 Ur Specific [place] 1.032 (1.000-1.030) H 08/27/20 01:58 Urine Protein 3+ (Negative) H 08/27/20 01:58 Urine Glucose (UA) Negative (Negative) 08/27/20 01:58 Urine Ketones 4+ (Negative) H 08/27/20 01:58 Urine Blood 2+ (Negative) H 08/27/20 01:58 Urine Nitrite Negative (Negative) 08/27/20 01:58 Urine Bilirubin Negative (Negative) 08/27/20 01:58 Urine Urobilinogen Negative (Negative) 08/27/20 01:58 Ur Leukocyte Esterase Negative (Negative) 08/27/20 01:58 Urine WBC (Auto) 1-5 /hpf (0-5) 08/27/20 01:58 Urine RBC (Auto) 10-30 /hpf (0-4) H 08/27/20 01:58 U Hyaline Cast (Auto) 10-30 /lpf (0-5) H 08/27/20 01:58 U Epithel Cells (Auto) >30 /lpf (0-5) H 08/27/20 01:58 Urine Bacteria (Auto) Negative (Negative) 08/27/20 01:58 Urine Opiates Screen Neg (Neg) 08/27/20 01:58 Ur Methadone, Qual Neg (Neg) 08/27/20 01:58 Urine Barbiturates Neg (Neg) 08/27/20 01:58 Ur Phencyclidine (PCP) Neg (Neg) 08/27/20 01:58 U Amphetamin/Meth Scrn Neg (Neg) 08/27/20 01:58 MDMA (Ecstasy) Screen Neg (Neg) 08/27/20 01:58 U Benzodiazepines Scrn Neg (Neg) 08/27/20 01:58 Ur Cocaine Metabolite Neg (Neg) 08/27/20 01:58 U Marijuana (THC) Screen Neg (Neg) 08/27/20 01:58 Ethyl Alcohol mg/dL 115.0 mg/dl (0-3) H 08/27/20 01:34 COVID-19 Eval Order Covid19 at [facility] 08/27/20 03:17 SARS-CoV-2 (PCR) NEGATIVE (Negative) 08/27/20 03:17 Diagnostic Findings [facility] Patient: PHILLIP AMARO (Female) : 83 Status: ER Date: 08/27/20 03:59 Room #: History: CHEST PAIN , DIFFUSE ABD PAIN , NAUSEA , VOMITING , APPENDIX PRESENT , EVAL FOR PE , 120 ML OPTIRAY 350 Slices: [id number] Priors: Tech: McGonigal, Roberth @ [id number] Exams: CT CHEST With Contrast, CT ABDOMEN & PELVIS With Contrast Contrast: IV Amt: 120 ML Accession Numbers: [id number], [id number] Preliminary Findings Only See Final Report For Complete Findings CT CHEST With Contrast: Suboptimal timing of contrast bolus significantly limits evaluation for pulmonary embolism. No evidence of central pulmonary embolism. Segmental and smaller emboli cannot be excluded. Mural thickening of distal esophagus and there is probable small sliding hiatal hernia. Findings are most suspicious for reflux esophagitis. Consider nonemergent correlation with endoscopy or upper GI series as clinically warranted. No aortic aneurysm or dissection. Lungs are clear. Scoliosis. CT ABDOMEN & PELVIS With Contrast: Hepatic steatosis. Colonic interposition. No free air or free fluid. No bowel obstruction. Hyperdense material within appendix, but no evidence of acute appendicitis IUD. Solid organs otherwise unremarkable. Scoliosis. Grade 1 spondylolytic anterolisthesis of L5 on S1. Radiologist: Gabino Foster MD Study ready at 04:12 and initial results transmitted at 05:15 *This report constitutes a preliminary interpretation only. Non-acute findings felt to be unrelated to the clinical presentation may not be discussed in this report. The study will be interpreted and a final report will be generated by the local Radiologist the following shift. To reach the hospital radiology department call [phone]. If a discrepancy is found between the preliminary and final interpretations of this study, please notify us via our Client Portal at [email or web address] QA Exams.You can also fax this report with a description of the discrepancy, or include the final report, to our daytime fax number [phone].If faxing, please indicate the severity of discrepancy using one of the following categories: [ ] 1 - Agree/Informational [ ] 2 - Unlikely to Affect Management [ ] 3 - Possible Eventual Change of Management [ ] 4 - Probable Immediate Change of Management For all other patient related information, please fax us at [phone]. [id number] Code Status & VTE Plan Code Status Full code VTE Prophylaxis Plan VTE Prophylaxis will be ordered: Yes Critical Care Time Critical Care Time: Yes Total Critical Care Time: 65 PG Care Time/CCT Total # of Minutes Spent Total Time Spent with Patient: Total time spent is greater than 50% in coordination of care (as documented) at patient's floor/unit and/or counseling patient: Critical Care Time: Yes Total Critical Care Time: 65 Coding Level of Care Code 57627 Initial Inpt Care Lvl 3 Diagnoses Admitted to intensive care unit Z78.9 Metabolic acidosis, increased anion gap E87.2 Alcohol withdrawal F10.239 Complication of substance-induced condition: with unspecified complication Hepatic steatosis K76.0 Reflux esophagitis K21.00 PTSD (post-traumatic stress disorder) F43.10 Anxiety with depression F41.8 Additional Codes Critical Care Time - Critical Care Time: Yes ([id number]) Time Spent (min) 65 (1) Alcohol withdrawal Complication of substance-induced condition: with unspecified complication Qualified Code(s): F10.239 - Alcohol dependence with withdrawal, unspecified
[2020-08-27] MEDS ORDERED: STAT IV STA (05:58)
[2020-08-27] MEDS ORDERED: SODIUM BICARBONATE 8.4% 150 MEQ in DEXTROSE 5% 1,000 ML IV SCH (06:15)
[2020-08-27] MEDS ORDERED: LORazepam 2 MG/4 ML VIAL IV PRN (06:49)
[2020-08-27] MEDS ORDERED: ONDANSETRON INJ 2 MG/ML 2 ML VIAL IV PRN (06:49)
[2020-08-27] MEDS ORDERED: ICU PROTOCOL FOR HYPERGLYCEMIA PRN (06:49)
[2020-08-27] MEDS ORDERED: LORazepam 3 MG/6 ML VIAL IV PRN (06:49)
[2020-08-27] MEDS ORDERED: ATIVAN IV ALCOHOL WITHDRAWL IV PRN (06:49)
[2020-08-27] MEDS ORDERED: ALBUT/IPRATROP 3MG/0.5MG NEB 3 ML VIAL INH PRN (06:49)
[2020-08-27] MEDS ORDERED: LACTATED RINGER'S 1,000 ML IV SCH (06:49)
[2020-08-27 07:10] LABS: Basophils # (auto) 0.01 K/uL (0-0.2); Basophils % (auto) 0.1 %; Hematocrit (blood only) 39.1 % (37-47); Immature Granulocytes # (auto) 0.02 K/uL (0.00-0.02); Immature Granulocytes % (auto) 0.2 %; Lymphocytes # (auto) 1.15 K/uL (1.2-3.4); Mean Corpuscular Hemoglobin 31.8 pg (25-34); Mean Corpuscular Volume 95.6 fL (80-100); Mean Platelet Volume 10.2 fL (7.4-10.4); Monocytes # (auto) 0.54 K/uL (0.11-0.59); Monocytes % (auto) 5.1 %; Neutrophils # (auto) 8.77 K/uL (1.4-6.5); Neutrophils % (auto) 83.6 %; Platelet Count 195 K/uL (130-400); RDW Coefficient of Variation 15.2 % (11.5-14.5); RDW Standard Deviation 53.3 fL (36.4-46.3); Red Blood Count 4.09 M/uL (4.2-5.4); White Blood Count 10.49 K/uL (4.8-10.8)
[2020-08-27 07:21] LABS: Partial Thromboplastin Ratio 1.1; Partial Thromboplastin Time 27.8 Seconds (21.0-31.0); Prothrombin Time 9.8 Seconds (9.0-12.0)
[2020-08-27 07:27] LABS: BUN Creatinine Ratio 7.9 (10-20); Calcium 7.7 mg/dl (8.5-10.1); Creatinine Clr Calc Pharmacy 130.3 ml/min; Est GFR (Non-African American) 100.9 ml/min; Potassium 4.9 mmol/L (3.5-5.1)
[2020-08-27 07:29] LABS: Acetaminophen 4 ug/ml (10-30); Salicylate < 1.7 mg/dl (2.8-20)
[2020-08-27 07:31] LABS: Globulin 3.9 gm/dl (2.5-4.0); Total Protein 7.9 gm/dl (6.4-8.2)
[2020-08-27] MEDS: CHECK CLONIDINE PATCH PLACEMENT SCH ×3 (07:33→23:43)
--- NOTE | 2020-08-27 07:34 | CT Scan Report ---
CT ANGIOGRAPHY OF THE CHEST, PULMONARY EMBOLUS PROTOCOL CLINICAL HISTORY: Chest pain. Vomiting. COMPARISON STUDY: Chest radiograph May 27, 2018. TECHNIQUE: Following IV administration of 120 mL of Optiray, helical axial images of the chest were o btained utilizing the pulmonary embolus protocol. Maximal intensity projections and sagittal and cor onal reformats were viewed on an independent 3D workstation. IV contrast was administered without co mplication. Automated exposure control was utilized for the study. A dose lowering technique was ut ilized adhering to the principles of ALARA. CT DOSE: 1383.89 mGy.cm FINDINGS: No central pulmonary embolus is identified. Opacification of the lower lobe pulmonary esmer murali is suboptimal. No pulmonary emboli are identified although sensitivity is diminished. There is n o thoracic aortic dissection. The size of the heart is normal. No pericardial effusion. Note is made of moderate circumferential wall thickening of the distal esophagus. There is no pneumothorax or pleu ral effusion. There is no consolidation. No suspicious pulmonary nodules are present. Abdomen and pel vis will be reported separately. Mild dextroscoliosis of the lower thoracic spine is present. IMPRESSION: 1. Exam compromised by suboptimal opacification. No central pulmonary emboli. Lower lobe pulmonary ar teries suboptimally assessed on this exam. 2. No consolidation. 3. Circumferential wall thickening of the distal esophagus which favors esophagitis. ACT 112: Negative or not required by law. Electronically signed by: Hung Stubbs M.D. 08/27/2020 7:32 AM
--- NOTE | 2020-08-27 07:38 | CT Scan Report ---
CT OF THE ABDOMEN AND PELVIS WITH CONTRAST CLINICAL HISTORY: Vomiting. COMPARISON STUDY: None. TECHNIQUE: Following IV administration of 120 mL of Optiray, axial images of the abdomen and pelvis w ere obtained from the lung bases to the proximal femurs. Images were reviewed in the axial, sagittal, and coronal planes. IV contrast was administered without complication. Automated exposure control w as utilized for the study. A dose lowering technique was utilized adhering to the principles of MELIZA Ruano. FINDINGS: Please note that the chest CT will be reported separately. No pneumatosis, free air or port al venous gas is present. There is hepatic steatosis. Exam is mildly compromised by motion artifact. The spleen, adrenal glands, kidneys and pancreas are unremarkable. Is no hydronephrosis. Sensitivity for detection of renal calculi is diminished given excreted contrast. The caliber and wall thickness of small and large bowel are normal. Sigmoid colon is redundant. There is a moderate amount of stool within the colon. There is hyperdense material within the appendix without evidence for acute appendi citis. There is no ascites. No lymphadenopathy is present. Major vasculature is patent. There is no b iliary or pancreatic ductal dilatation. Grade I anterolisthesis of L5 on S1 is noted due to bilateral L5 pars defects. Intrauterine device is in place. IMPRESSION: 1. No acute process within the abdomen or pelvis. 2. Hepatic steatosis. 3. Moderate amount of stool within the colon. 4. Hyperdense material within the appendix. No evidence for acute appendicitis. ACT 112: Negative or not required by law. Electronically signed by: Hung Stubbs M.D. 08/27/2020 7:36 AM
[2020-08-27] MEDS ORDERED: PHENobarbital sodium 65 MG/ML VIAL IV PRN (07:50)
[2020-08-27] MEDS ORDERED: ENOXAPARIN INJ 40 MG/0.4 ML SYR SQ SCH (08:00)
[2020-08-27] MEDS ORDERED: PHENobarbital sodium 130 MG/ML VIAL IM STA (08:07)
[2020-08-27 08:15] LABS: Mean Corpuscular Hgb Conc 33.2 g/dL (32-36)
[2020-08-27 08:20] LABS: Base Excess VBG -9.4 mEq/L; pH VBG 7.32 (7.36-7.41)
--- NOTE | 2020-08-27 08:20 | Critical Care Consultation ---
Date of Consultation August 27, 2020 Assessment & Plan (1) Acute alcohol intoxication: Reason Critically Ill: 35-year-old female with high gap metabolic acidosis with concern for delirium tremens and acute alcohol intoxication PLAN: Neuro: Acute alcohol intoxication -Patient is alert and oriented x3 understands and appreciates gravity of her situation and has full capacity. 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 not withstanding any underlying anxiety and depression outside of that worsened by alcohol dependence Alcohol dependence -Will bridge with phenobarbital this time she has alcohol withdrawal scoring undergoing but she is not in active alcohol withdrawal Resp: Tachypnea: Resolved CV: Tachycardia -Likely related to volume depletion from nausea and vomiting may also relate to anxiety and alcohol use Fluids/Renal: High gap metabolic acidosis: Improving -I suspect the etiology is lactic acidosis secondary to nausea and vomiting, we will recheck an awesome she denies any illicit alcohol use toluene order was canceled. -Lactic acid serum awesome and alcohol level pending will recheck osmolar gap but I suspect that this was secondary to acute alcohol intoxication and mild contribution of an alcoholic ketoacidosis ID: No indication for antibiotics GI/Nutrition: Regular diet History hepatosteatosis Heme: DVT prophylaxis: Discontinue Lovenox ambulate patient every shift Endocrine: ICU hyperglycemia protocol Early stages of alcoholic ketoacidosis -Discontinue bicarb at this time Vascular access: Peripheral IVs Code Status: Full code Disposition: I anticipate once nausea and vomiting is under control and she is able to take p.o. she would be stable for transfer to rehabilitation facility or discharge Update at 1315: VBG reassuring mild evidence of tachypnea, lactate negative which corresponds to improved VBG, alcohol had cleared, acetaminophen Tylenol negative, serum osmolality from 0 134 minimally elevated which would correspond to labs and alcohol level of 115 no indication of toxic alcohol ingestion, stable for downgrade out of ICU (2) Nausea & vomiting: (3) Anxiety with depression: (4) PTSD (post-traumatic stress disorder): (5) Admitted to intensive care unit: (6) Alcohol dependence: History of Present Illness Reason for Consultation: Obtunded concern for acute alcohol withdrawal/delirium tremens Requesting Physician: Nicolas Lao Attending Physician: Chaitanya Marie History of Present Illness Patient is a 35-year-old female who presents with nausea vomiting and desire to undergo alcohol rehab. She has undergone alcohol rehab in the past and for the past several weeks she has engaged in binge drinking drinking about 1 pint of vodka daily her last consumption was yesterday at 7 PM. She has had withdrawals before. Currently her nausea and vomiting has resolved she feels anxious. Her past medical history includes PTSD anxiety and depression she has no known drug allergies. test done in the emergency department was negative. Patient denies chest pain or shortness of breath. Allergies Allergy/AdvReac Type Severity Reaction Status Date / Time No Known Allergies Allergy Unverified 08/27/20 01:26 Home Medications Medication Instructions Recorded Confirmed Type gabapentin 300 mg PO TID 05/27/18 08/27/20 History hydroxyzine pamoate [Vistaril] 50 mg PO TID 05/27/18 08/27/20 History multivitamin 1 tab PO QAM 05/27/18 08/27/20 History linaclotide [Linzess] 145 mcg PO DAILY 07/10/20 08/27/20 History prazosin 3 mg PO HS 07/10/20 08/27/20 History cyclobenzaprine 10 mg PO BID PRN 08/27/20 08/27/20 History duloxetine 60 mg PO DAILY 08/27/20 08/27/20 History naltrexone 25 mg PO DAILY 08/27/20 08/27/20 History pantoprazole 20 mg PO DAILY 08/27/20 08/27/20 History quetiapine 200 mg PO HS 08/27/20 08/27/20 History Patient History Medical History Alcohol abuse Anxiety with depression Hepatic steatosis No pertinent family history Pancreatitis PTSD (post-traumatic stress disorder) Surgical History Previous section Social History Smoking Status: Never smoker Hx Alcohol Use: Yes Alcohol type: hard liquor Hx Substance Use: No Preferred Language: Iranian Communication Ability: Effective Director Medical Safety Required: No Beliefs That Will Affect Care: None marital status: Current Living Situation: Family Feels Safe at Home: Yes Assistive Devices: None Review of Systems Review of Systems: All systems reviewed & are unremarkable except as noted in HPI & below Physical Exam Physical Exam: General: Alert. nontoxic. Skin: Warm, dry, Head: Atraumatic Ears, nose, mouth and throat: airway patent Cardiovascular: Normal peripheral perfusion Respiratory: no respiratory distress Gastrointestinal: Non distended Musculoskeletal: No deformity Psych: Clear thinking nontangential alert and oriented x3 pleasant Results & Data Results & Data ([facility]) Vital Signs (Past 12 Hours) Vital Signs Temp Pulse Pulse Resp BP BP Pulse Ox 08/27/20 07:14 37 C 112 H 22 138/91 98 08/27/20 06:00 108 H 21 127/73 99 08/27/20 05:52 109 H 18 120/67 99 08/27/20 05:30 106 H 25 H 140/86 99 08/27/20 05:00 110 H 26 H 149/86 H 99 08/27/20 04:30 115 H 24 140/88 99 08/27/20 04:00 119 H 113 H 28 H 145/86 H 140/88 99 08/27/20 03:59 118 H 24 146/88 H 99 08/27/20 03:30 118 H 27 H 143/88 H 99 08/27/20 03:00 110 H 21 176/107 H 98 08/27/20 02:30 122 H 14 155/108 H 99 08/27/20 02:23 116 H 14 179/99 H 99 08/27/20 01:48 112 H 17 160/108 H 99 08/27/20 00:59 119 H 18 154/102 H 99 08/27/20 00:46 119 H 18 151/105 H 99 08/27/20 00:28 36.6 C 135 H 20 151/104 H 97 Laboratory Results 08/27/20 08/27/20 08/27/20 Range/Units 06:56 06:56 06:48 WBC (4.8-10.8) K/uL RBC (4.2-5.4) M/uL Hgb (12.0-16.0) g/dL POC Hgb (12.0-16.0) g/dl Hct (37-47) % POC Hct (37-47) % MCV (80-100) fL MCH (25-34) pg MCHC (32-36) g/dL RDW Std Deviation (36.4-46.3) fL RDW Coeff of Dallin (11.5-14.5) % Plt Count (130-400) K/uL MPV (7.4-10.4) fL Immature Gran % (Auto) % Neut % (Auto) % Lymph % (Auto) % Garvin % (Auto) % Eos % (Auto) % Baso % (Auto) % Neut # (Auto) (1.4-6.5) K/uL Lymph # (Auto) (1.2-3.4) K/uL Garvin # (Auto) (0.11-0.59) K/uL Eos # (Auto) (0-0.5) K/uL Baso # (Auto) (0-0.2) K/uL Immature Gran # (Auto) (0.00-0.02) K/uL PT (9.0-12.0) Seconds INR (0.9-1.1) APTT (21.0-31.0) Seconds PTT Ratio POC pH (7.35-7.45) POC pCO2 (35-46) mmHg POC pO2 (80-95) mmHg POC HCO3 (19-24) gina/L POC Total CO2 (24-31) mmol/L POC Base Excess (-9-1.8) gina/L POC ABG O2 Sat (90-95) % VBG pH (7.36-7.41) VBG pCO2 (38-50) mmHg VBG pO2 mmHg VBG HCO3 mmol/L VBG O2 Saturation % VBG Base Excess mEq/L Barometric Pressure mm/Hg POC Sodium (135-144) mmol/L Sodium 129 L (136-145) mmol/L POC Potassium (3.3-5.0) mmol/L Potassium 4.9 (3.5-5.1) mmol/L Chloride 101 (98-107) mmol/L Carbon Dioxide 11 L (21-32) mmol/L Anion Gap 17.0 H (3-11) BUN 6 L (7-18) mg/dl Creatinine 0.76 (0.6-1.2) mg/dl Est Cr Clr Drug Dosing 130.3 ml/min Est GFR ( Amer) 117.0 ml/min Est GFR (Non-Af Amer) 100.9 ml/min BUN/Creatinine Ratio 7.9 L (10-20) Glucose 99 (70-99) mg/dl Osmolality (280-300) mOsm/kg Calcium 7.7 L (8.5-10.1) mg/dl Magnesium (1.8-2.4) mg/dl Iron 253 H (35-150) mcg/dl Total Bilirubin 1.0 (0.2-1) mg/dl AST 91 H (15-37) U/L ALT 68 (12-78) U/L Alkaline Phosphatase 69 (45-117) U/L Total Creatine Kinase (26-192) U/L CK-MB (CK-2) (0.5-3.6) ng/ml CK/CKMB % Calc (0-3.0) Troponin I (0-0.045) ng/ml Total Protein 7.9 (6.4-8.2) gm/dl Albumin 4.0 (3.4-5.0) gm/dl Globulin 3.9 (2.5-4.0) gm/dl Albumin/Globulin Ratio 1.0 (0.9-2) Lipase (73-393) U/L HCG, Qual (Negative) Urine Color Urine Appearance (Clear) Urine pH (4.5-7.5) Ur Specific [place] (1.000-1.030) Urine Protein (Negative) Urine Glucose (UA) (Negative) Urine Ketones (Negative) Urine Blood (Negative) Urine Nitrite (Negative) Urine Bilirubin (Negative) Urine Urobilinogen (Negative) Ur Leukocyte Esterase (Negative) Urine WBC (Auto) (0-5) /hpf Urine RBC (Auto) (0-4) /hpf U Hyaline Cast (Auto) (0-5) /lpf U Epithel Cells (Auto) (0-5) /lpf Urine Bacteria (Auto) (Negative) Salicylates (2.8-20) mg/dl Urine Opiates Screen (Neg) Ur Methadone, Qual (Neg) Acetaminophen (10-30) ug/ml Urine Barbiturates (Neg) Ur Phencyclidine (PCP) (Neg) U Amphetamin/Meth Scrn (Neg) MDMA (Ecstasy) Screen (Neg) U Benzodiazepines Scrn (Neg) Ur Cocaine Metabolite (Neg) U Marijuana (THC) Screen (Neg) Toluene Pending Ethyl Alcohol mg/dL (0-3) mg/dl COVID-19 Eval Order SARS-CoV-2 (PCR) (Negative) Hepatitis A IgM Ab Hep Bs Antigen Hep B Core IgM Ab Hepatitis C Antibody 08/27/20 08/27/20 08/27/20 Range/Units 06:48 06:48 06:48 WBC 10.49 (4.8-10.8) K/uL RBC 4.09 L (4.2-5.4) M/uL Hgb 13.0 (12.0-16.0) g/dL POC Hgb (12.0-16.0) g/dl Hct 39.1 (37-47) % POC Hct (37-47) % MCV 95.6 (80-100) fL MCH 31.8 (25-34) pg MCHC Pending (32-36) g/dL RDW Std Deviation 53.3 H (36.4-46.3) fL RDW Coeff of Dallin 15.2 H (11.5-14.5) % Plt Count 195 (130-400) K/uL MPV 10.2 (7.4-10.4) fL Immature Gran % (Auto) 0.2 % Neut % (Auto) 83.6 % Lymph % (Auto) 11.0 % Garvin % (Auto) 5.1 % Eos % (Auto) 0.0 % Baso % (Auto) 0.1 % Neut # (Auto) 8.77 H (1.4-6.5) K/uL Lymph # (Auto) 1.15 L (1.2-3.4) K/uL Garvin # (Auto) 0.54 (0.11-0.59) K/uL Eos # (Auto) 0.00 (0-0.5) K/uL Baso # (Auto) 0.01 (0-0.2) K/uL Immature Gran # (Auto) 0.02 (0.00-0.02) K/uL PT 9.8 (9.0-12.0) Seconds INR 1.0 (0.9-1.1) APTT 27.8 (21.0-31.0) Seconds PTT Ratio 1.1 POC pH (7.35-7.45) POC pCO2 (35-46) mmHg POC pO2 (80-95) mmHg POC HCO3 (19-24) gina/L POC Total CO2 (24-31) mmol/L POC Base Excess (-9-1.8) gina/L POC ABG O2 Sat (90-95) % VBG pH (7.36-7.41) VBG pCO2 (38-50) mmHg VBG pO2 mmHg VBG HCO3 mmol/L VBG O2 Saturation % VBG Base Excess mEq/L Barometric Pressure mm/Hg POC Sodium (135-144) mmol/L Sodium (136-145) mmol/L POC Potassium (3.3-5.0) mmol/L Potassium (3.5-5.1) mmol/L Chloride (98-107) mmol/L Carbon Dioxide (21-32) mmol/L Anion Gap (3-11) BUN (7-18) mg/dl Creatinine (0.6-1.2) mg/dl Est Cr Clr Drug Dosing ml/min Est GFR ( Amer) ml/min Est GFR (Non-Af Amer) ml/min BUN/Creatinine Ratio (10-20) Glucose (70-99) mg/dl Osmolality (280-300) mOsm/kg Calcium (8.5-10.1) mg/dl Magnesium (1.8-2.4) mg/dl Iron (35-150) mcg/dl Total Bilirubin (0.2-1) mg/dl AST (15-37) U/L ALT (12-78) U/L Alkaline Phosphatase (45-117) U/L Total Creatine Kinase (26-192) U/L CK-MB (CK-2) (0.5-3.6) ng/ml CK/CKMB % Calc (0-3.0) Troponin I (0-0.045) ng/ml Total Protein (6.4-8.2) gm/dl Albumin (3.4-5.0) gm/dl Globulin (2.5-4.0) gm/dl Albumin/Globulin Ratio (0.9-2) Lipase (73-393) U/L HCG, Qual (Negative) Urine Color Urine Appearance (Clear) Urine pH (4.5-7.5) Ur Specific [place] (1.000-1.030) Urine Protein (Negative) Urine Glucose (UA) (Negative) Urine Ketones (Negative) Urine Blood (Negative) Urine Nitrite (Negative) Urine Bilirubin (Negative) Urine Urobilinogen (Negative) Ur Leukocyte Esterase (Negative) Urine WBC (Auto) (0-5) /hpf Urine RBC (Auto) (0-4) /hpf U Hyaline Cast (Auto) (0-5) /lpf U Epithel Cells (Auto) (0-5) /lpf Urine Bacteria (Auto) (Negative) Salicylates < 1.7 L (2.8-20) mg/dl Urine Opiates Screen (Neg) Ur Methadone, Qual (Neg) Acetaminophen 4 L (10-30) ug/ml Urine Barbiturates (Neg) Ur Phencyclidine (PCP) (Neg) U Amphetamin/Meth Scrn (Neg) MDMA (Ecstasy) Screen (Neg) U Benzodiazepines Scrn (Neg) Ur Cocaine Metabolite (Neg) U Marijuana (THC) Screen (Neg) Toluene Ethyl Alcohol mg/dL (0-3) mg/dl COVID-19 Eval Order SARS-CoV-2 (PCR) (Negative) Hepatitis A IgM Ab Hep Bs Antigen Hep B Core IgM Ab Hepatitis C Antibody 08/27/20 08/27/20 08/27/20 Range/Units 05:15 03:29 03:17 WBC (4.8-10.8) K/uL RBC (4.2-5.4) M/uL Hgb (12.0-16.0) g/dL POC Hgb 15.0 (12.0-16.0) g/dl Hct (37-47) % POC Hct 44 (37-47) % MCV (80-100) fL MCH (25-34) pg MCHC (32-36) g/dL RDW Std Deviation (36.4-46.3) fL RDW Coeff of Dallin (11.5-14.5) % Plt Count (130-400) K/uL MPV (7.4-10.4) fL Immature Gran % (Auto) % Neut % (Auto) % Lymph % (Auto) % Garvin % (Auto) % Eos % (Auto) % Baso % (Auto) % Neut # (Auto) (1.4-6.5) K/uL Lymph # (Auto) (1.2-3.4) K/uL Garvin # (Auto) (0.11-0.59) K/uL Eos # (Auto) (0-0.5) K/uL Baso # (Auto) (0-0.2) K/uL Immature Gran # (Auto) (0.00-0.02) K/uL PT (9.0-12.0) Seconds INR (0.9-1.1) APTT (21.0-31.0) Seconds PTT Ratio POC pH 7.17 L* (7.35-7.45) POC pCO2 19 L (35-46) mmHg POC pO2 99 H (80-95) mmHg POC HCO3 7 L (19-24) gina/L POC Total CO2 7 L* (24-31) mmol/L POC Base Excess -22.0 L (-9-1.8) gina/L POC ABG O2 Sat 96.0 H (90-95) % VBG pH (7.36-7.41) VBG pCO2 (38-50) mmHg VBG pO2 mmHg VBG HCO3 mmol/L VBG O2 Saturation % VBG Base Excess mEq/L Barometric Pressure mm/Hg POC Sodium 131 L (135-144) mmol/L Sodium (136-145) mmol/L POC Potassium 6.7 H* (3.3-5.0) mmol/L Potassium (3.5-5.1) mmol/L Chloride (98-107) mmol/L Carbon Dioxide (21-32) mmol/L Anion Gap (3-11) BUN (7-18) mg/dl Creatinine (0.6-1.2) mg/dl Est Cr Clr Drug Dosing ml/min Est GFR ( Amer) ml/min Est GFR (Non-Af Amer) ml/min BUN/Creatinine Ratio (10-20) Glucose (70-99) mg/dl Osmolality (280-300) mOsm/kg Calcium (8.5-10.1) mg/dl Magnesium (1.8-2.4) mg/dl Iron (35-150) mcg/dl Total Bilirubin (0.2-1) mg/dl AST (15-37) U/L ALT (12-78) U/L Alkaline Phosphatase (45-117) U/L Total Creatine Kinase (26-192) U/L CK-MB (CK-2) (0.5-3.6) ng/ml CK/CKMB % Calc (0-3.0) Troponin I (0-0.045) ng/ml Total Protein (6.4-8.2) gm/dl Albumin (3.4-5.0) gm/dl Globulin (2.5-4.0) gm/dl Albumin/Globulin Ratio (0.9-2) Lipase (73-393) U/L HCG, Qual (Negative) Urine Color Urine Appearance (Clear) Urine pH (4.5-7.5) Ur Specific [place] (1.000-1.030) Urine Protein (Negative) Urine Glucose (UA) (Negative) Urine Ketones (Negative) Urine Blood (Negative) Urine Nitrite (Negative) Urine Bilirubin (Negative) Urine Urobilinogen (Negative) Ur Leukocyte Esterase (Negative) Urine WBC (Auto) (0-5) /hpf Urine RBC (Auto) (0-4) /hpf U Hyaline Cast (Auto) (0-5) /lpf U Epithel Cells (Auto) (0-5) /lpf Urine Bacteria (Auto) (Negative) Salicylates (2.8-20) mg/dl Urine Opiates Screen (Neg) Ur Methadone, Qual (Neg) Acetaminophen (10-30) ug/ml Urine Barbiturates (Neg) Ur Phencyclidine (PCP) (Neg) U Amphetamin/Meth Scrn (Neg) MDMA (Ecstasy) Screen (Neg) U Benzodiazepines Scrn (Neg) Ur Cocaine Metabolite (Neg) U Marijuana (THC) Screen (Neg) Toluene Ethyl Alcohol mg/dL (0-3) mg/dl COVID-19 Eval Order SARS-CoV-2 (PCR) NEGATIVE (Negative) Hepatitis A IgM Ab Pending Hep Bs Antigen Hep B Core IgM Ab Pending Hepatitis C Antibody 08/27/20 08/27/20 08/27/20 Range/Units 03:17 03:06 01:58 WBC (4.8-10.8) K/uL RBC (4.2-5.4) M/uL Hgb (12.0-16.0) g/dL POC Hgb (12.0-16.0) g/dl Hct (37-47) % POC Hct (37-47) % MCV (80-100) fL MCH (25-34) pg MCHC (32-36) g/dL RDW Std Deviation (36.4-46.3) fL RDW Coeff of Dallin (11.5-14.5) % Plt Count (130-400) K/uL MPV (7.4-10.4) fL Immature Gran % (Auto) % Neut % (Auto) % Lymph % (Auto) % Garvin % (Auto) % Eos % (Auto) % Baso % (Auto) % Neut # (Auto) (1.4-6.5) K/uL Lymph # (Auto) (1.2-3.4) K/uL Garvin # (Auto) (0.11-0.59) K/uL Eos # (Auto) (0-0.5) K/uL Baso # (Auto) (0-0.2) K/uL Immature Gran # (Auto) (0.00-0.02) K/uL PT (9.0-12.0) Seconds INR (0.9-1.1) APTT (21.0-31.0) Seconds PTT Ratio POC pH (7.35-7.45) POC pCO2 (35-46) mmHg POC pO2 (80-95) mmHg POC HCO3 (19-24) gina/L POC Total CO2 (24-31) mmol/L POC Base Excess (-9-1.8) gina/L POC ABG O2 Sat (90-95) % VBG pH 7.16 L (7.36-7.41) VBG pCO2 25 L (38-50) mmHg VBG pO2 58 mmHg VBG HCO3 9 mmol/L VBG O2 Saturation 85.7 % VBG Base Excess -18.1 mEq/L Barometric Pressure 736.0 mm/Hg POC Sodium (135-144) mmol/L Sodium (136-145) mmol/L POC Potassium (3.3-5.0) mmol/L Potassium (3.5-5.1) mmol/L Chloride (98-107) mmol/L Carbon Dioxide (21-32) mmol/L Anion Gap (3-11) BUN (7-18) mg/dl Creatinine (0.6-1.2) mg/dl Est Cr Clr Drug Dosing ml/min Est GFR ( Amer) ml/min Est GFR (Non-Af Amer) ml/min BUN/Creatinine Ratio (10-20) Glucose (70-99) mg/dl Osmolality (280-300) mOsm/kg Calcium (8.5-10.1) mg/dl Magnesium (1.8-2.4) mg/dl Iron (35-150) mcg/dl Total Bilirubin (0.2-1) mg/dl AST (15-37) U/L ALT (12-78) U/L Alkaline Phosphatase (45-117) U/L Total Creatine Kinase (26-192) U/L CK-MB (CK-2) (0.5-3.6) ng/ml CK/CKMB % Calc (0-3.0) Troponin I (0-0.045) ng/ml Total Protein (6.4-8.2) gm/dl Albumin (3.4-5.0) gm/dl Globulin (2.5-4.0) gm/dl Albumin/Globulin Ratio (0.9-2) Lipase (73-393) U/L HCG, Qual (Negative) Urine Color Urine Appearance (Clear) Urine pH (4.5-7.5) Ur Specific [place] (1.000-1.030) Urine Protein (Negative) Urine Glucose (UA) (Negative) Urine Ketones (Negative) Urine Blood (Negative) Urine Nitrite (Negative) Urine Bilirubin (Negative) Urine Urobilinogen (Negative) Ur Leukocyte Esterase (Negative) Urine WBC (Auto) (0-5) /hpf Urine RBC (Auto) (0-4) /hpf U Hyaline Cast (Auto) (0-5) /lpf U Epithel Cells (Auto) (0-5) /lpf Urine Bacteria (Auto) (Negative) Salicylates (2.8-20) mg/dl Urine Opiates Screen Neg (Neg) Ur Methadone, Qual Neg (Neg) Acetaminophen (10-30) ug/ml Urine Barbiturates Neg (Neg) Ur Phencyclidine (PCP) Neg (Neg) U Amphetamin/Meth Scrn Neg (Neg) MDMA (Ecstasy) Screen Neg (Neg) U Benzodiazepines Scrn Neg (Neg) Ur Cocaine Metabolite Neg (Neg) U Marijuana (THC) Screen Neg (Neg) Toluene Ethyl Alcohol mg/dL (0-3) mg/dl COVID-19 Eval Order Covid19 at [facility] SARS-CoV-2 (PCR) (Negative) Hepatitis A IgM Ab Hep Bs Antigen Hep B Core IgM Ab Hepatitis C Antibody 08/27/20 08/27/20 08/27/20 Range/Units 01:58 01:34 01:34 WBC (4.8-10.8) K/uL RBC (4.2-5.4) M/uL Hgb (12.0-16.0) g/dL POC Hgb (12.0-16.0) g/dl Hct (37-47) % POC Hct (37-47) % MCV (80-100) fL MCH (25-34) pg MCHC (32-36) g/dL RDW Std Deviation (36.4-46.3) fL RDW Coeff of Dallin (11.5-14.5) % Plt Count (130-400) K/uL MPV (7.4-10.4) fL Immature Gran % (Auto) % Neut % (Auto) % Lymph % (Auto) % Garvin % (Auto) % Eos % (Auto) % Baso % (Auto) % Neut # (Auto) (1.4-6.5) K/uL Lymph # (Auto) (1.2-3.4) K/uL Garvin # (Auto) (0.11-0.59) K/uL Eos # (Auto) (0-0.5) K/uL Baso # (Auto) (0-0.2) K/uL Immature Gran # (Auto) (0.00-0.02) K/uL PT (9.0-12.0) Seconds INR (0.9-1.1) APTT (21.0-31.0) Seconds PTT Ratio POC pH (7.35-7.45) POC pCO2 (35-46) mmHg POC pO2 (80-95) mmHg POC HCO3 (19-24) gina/L POC Total CO2 (24-31) mmol/L POC Base Excess (-9-1.8) gina/L POC ABG O2 Sat (90-95) % VBG pH (7.36-7.41) VBG pCO2 (38-50) mmHg VBG pO2 mmHg VBG HCO3 mmol/L VBG O2 Saturation % VBG Base Excess mEq/L Barometric Pressure mm/Hg POC Sodium (135-144) mmol/L Sodium (136-145) mmol/L POC Potassium (3.3-5.0) mmol/L Potassium (3.5-5.1) mmol/L Chloride (98-107) mmol/L Carbon Dioxide (21-32) mmol/L Anion Gap (3-11) BUN (7-18) mg/dl Creatinine (0.6-1.2) mg/dl Est Cr Clr Drug Dosing ml/min Est GFR ( Amer) ml/min Est GFR (Non-Af Amer) ml/min BUN/Creatinine Ratio (10-20) Glucose (70-99) mg/dl Osmolality 316 H (280-300) mOsm/kg Calcium (8.5-10.1) mg/dl Magnesium (1.8-2.4) mg/dl Iron (35-150) mcg/dl Total Bilirubin (0.2-1) mg/dl AST (15-37) U/L ALT (12-78) U/L Alkaline Phosphatase (45-117) U/L Total Creatine Kinase (26-192) U/L CK-MB (CK-2) (0.5-3.6) ng/ml CK/CKMB % Calc (0-3.0) Troponin I (0-0.045) ng/ml Total Protein (6.4-8.2) gm/dl Albumin (3.4-5.0) gm/dl Globulin (2.5-4.0) gm/dl Albumin/Globulin Ratio (0.9-2) Lipase (73-393) U/L HCG, Qual (Negative) Urine Color Yellow Urine Appearance Cloudy A (Clear) Urine pH 5.0 (4.5-7.5) Ur Specific [place] 1.032 H (1.000-1.030) Urine Protein 3+ H (Negative) Urine Glucose (UA) Negative (Negative) Urine Ketones 4+ H (Negative) Urine Blood 2+ H (Negative) Urine Nitrite Negative (Negative) Urine Bilirubin Negative (Negative) Urine Urobilinogen Negative (Negative) Ur Leukocyte Esterase Negative (Negative) Urine WBC (Auto) 1-5 (0-5) /hpf Urine RBC (Auto) 10-30 H (0-4) /hpf U Hyaline Cast (Auto) 10-30 H (0-5) /lpf U Epithel Cells (Auto) >30 H (0-5) /lpf Urine Bacteria (Auto) Negative (Negative) Salicylates (2.8-20) mg/dl Urine Opiates Screen (Neg) Ur Methadone, Qual (Neg) Acetaminophen (10-30) ug/ml Urine Barbiturates (Neg) Ur Phencyclidine (PCP) (Neg) U Amphetamin/Meth Scrn (Neg) MDMA (Ecstasy) Screen (Neg) U Benzodiazepines Scrn (Neg) Ur Cocaine Metabolite (Neg) U Marijuana (THC) Screen (Neg) Toluene Ethyl Alcohol mg/dL (0-3) mg/dl COVID-19 Eval Order SARS-CoV-2 (PCR) (Negative) Hepatitis A IgM Ab Hep Bs Antigen Pending Hep B Core IgM Ab Hepatitis C Antibody Pending 08/27/20 08/27/20 08/27/20 Range/Units 01:34 01:34 01:34 WBC 12.80 H (4.8-10.8) K/uL RBC 4.77 (4.2-5.4) M/uL Hgb 15.4 (12.0-16.0) g/dL POC Hgb (12.0-16.0) g/dl Hct 45.1 (37-47) % POC Hct (37-47) % MCV 94.5 (80-100) fL MCH 32.3 (25-34) pg MCHC 34.1 (32-36) g/dL RDW Std Deviation 52.7 H (36.4-46.3) fL RDW Coeff of Dallin 15.1 H (11.5-14.5) % Plt Count 291 (130-400) K/uL MPV 10.3 (7.4-10.4) fL Immature Gran % (Auto) 0.2 % Neut % (Auto) 88.8 % Lymph % (Auto) 7.1 % Garvin % (Auto) 3.7 % Eos % (Auto) 0.0 % Baso % (Auto) 0.2 % Neut # (Auto) 11.38 H (1.4-6.5) K/uL Lymph # (Auto) 0.91 L (1.2-3.4) K/uL Garvin # (Auto) 0.47 (0.11-0.59) K/uL Eos # (Auto) 0.00 (0-0.5) K/uL Baso # (Auto) 0.02 (0-0.2) K/uL Immature Gran # (Auto) 0.02 (0.00-0.02) K/uL PT (9.0-12.0) Seconds INR (0.9-1.1) APTT (21.0-31.0) Seconds PTT Ratio POC pH (7.35-7.45) POC pCO2 (35-46) mmHg POC pO2 (80-95) mmHg POC HCO3 (19-24) gina/L POC Total CO2 (24-31) mmol/L POC Base Excess (-9-1.8) gina/L POC ABG O2 Sat (90-95) % VBG pH (7.36-7.41) VBG pCO2 (38-50) mmHg VBG pO2 mmHg VBG HCO3 mmol/L VBG O2 Saturation % VBG Base Excess mEq/L Barometric Pressure mm/Hg POC Sodium (135-144) mmol/L Sodium 129 L (136-145) mmol/L POC Potassium (3.3-5.0) mmol/L Potassium 5.0 (3.5-5.1) mmol/L Chloride 98 (98-107) mmol/L Carbon Dioxide 8 L* (21-32) mmol/L Anion Gap 23.0 H (3-11) BUN 9 (7-18) mg/dl Creatinine 0.96 (0.6-1.2) mg/dl Est Cr Clr Drug Dosing 103.2 ml/min Est GFR ( Amer) 88.2 ml/min Est GFR (Non-Af Amer) 76.1 ml/min BUN/Creatinine Ratio 9.0 L (10-20) Glucose 83 (70-99) mg/dl Osmolality (280-300) mOsm/kg Calcium 8.7 (8.5-10.1) mg/dl Magnesium 2.2 (1.8-2.4) mg/dl Iron (35-150) mcg/dl Total Bilirubin 0.9 (0.2-1) mg/dl AST 129 H (15-37) U/L ALT 94 H (12-78) U/L Alkaline Phosphatase 90 (45-117) U/L Total Creatine Kinase 112 (26-192) U/L CK-MB (CK-2) 1.4 (0.5-3.6) ng/ml CK/CKMB % Calc 1.3 (0-3.0) Troponin I < 0.015 (0-0.045) ng/ml Total Protein 9.6 H (6.4-8.2) gm/dl Albumin 4.8 (3.4-5.0) gm/dl Globulin 4.8 H (2.5-4.0) gm/dl Albumin/Globulin Ratio 1.0 (0.9-2) Lipase 75 (73-393) U/L HCG, Qual Negative (Negative) Urine Color Urine Appearance (Clear) Urine pH (4.5-7.5) Ur Specific [place] (1.000-1.030) Urine Protein (Negative) Urine Glucose (UA) (Negative) Urine Ketones (Negative) Urine Blood (Negative) Urine Nitrite (Negative) Urine Bilirubin (Negative) Urine Urobilinogen (Negative) Ur Leukocyte Esterase (Negative) Urine WBC (Auto) (0-5) /hpf Urine RBC (Auto) (0-4) /hpf U Hyaline Cast (Auto) (0-5) /lpf U Epithel Cells (Auto) (0-5) /lpf Urine Bacteria (Auto) (Negative) Salicylates (2.8-20) mg/dl Urine Opiates Screen (Neg) Ur Methadone, Qual (Neg) Acetaminophen (10-30) ug/ml Urine Barbiturates (Neg) Ur Phencyclidine (PCP) (Neg) U Amphetamin/Meth Scrn (Neg) MDMA (Ecstasy) Screen (Neg) U Benzodiazepines Scrn (Neg) Ur Cocaine Metabolite (Neg) U Marijuana (THC) Screen (Neg) Toluene Ethyl Alcohol mg/dL (0-3) mg/dl COVID-19 Eval Order SARS-CoV-2 (PCR) (Negative) Hepatitis A IgM Ab Hep Bs Antigen Hep B Core IgM Ab Hepatitis C Antibody 08/27/20 Range/Units 01:34 WBC (4.8-10.8) K/uL RBC (4.2-5.4) M/uL Hgb (12.0-16.0) g/dL POC Hgb (12.0-16.0) g/dl Hct (37-47) % POC Hct (37-47) % MCV (80-100) fL MCH (25-34) pg MCHC (32-36) g/dL RDW Std Deviation (36.4-46.3) fL RDW Coeff of Dallin (11.5-14.5) % Plt Count (130-400) K/uL MPV (7.4-10.4) fL Immature Gran % (Auto) % Neut % (Auto) % Lymph % (Auto) % Garvin % (Auto) % Eos % (Auto) % Baso % (Auto) % Neut # (Auto) (1.4-6.5) K/uL Lymph # (Auto) (1.2-3.4) K/uL Garvin # (Auto) (0.11-0.59) K/uL Eos # (Auto) (0-0.5) K/uL Baso # (Auto) (0-0.2) K/uL Immature Gran # (Auto) (0.00-0.02) K/uL PT (9.0-12.0) Seconds INR (0.9-1.1) APTT (21.0-31.0) Seconds PTT Ratio POC pH (7.35-7.45) POC pCO2 (35-46) mmHg POC pO2 (80-95) mmHg POC HCO3 (19-24) gina/L POC Total CO2 (24-31) mmol/L POC Base Excess (-9-1.8) gina/L POC ABG O2 Sat (90-95) % VBG pH (7.36-7.41) VBG pCO2 (38-50) mmHg VBG pO2 mmHg VBG HCO3 mmol/L VBG O2 Saturation % VBG Base Excess mEq/L Barometric Pressure mm/Hg POC Sodium (135-144) mmol/L Sodium (136-145) mmol/L POC Potassium (3.3-5.0) mmol/L Potassium (3.5-5.1) mmol/L Chloride (98-107) mmol/L Carbon Dioxide (21-32) mmol/L Anion Gap (3-11) BUN (7-18) mg/dl Creatinine (0.6-1.2) mg/dl Est Cr Clr Drug Dosing ml/min Est GFR ( Amer) ml/min Est GFR (Non-Af Amer) ml/min BUN/Creatinine Ratio (10-20) Glucose (70-99) mg/dl Osmolality (280-300) mOsm/kg Calcium (8.5-10.1) mg/dl Magnesium (1.8-2.4) mg/dl Iron (35-150) mcg/dl Total Bilirubin (0.2-1) mg/dl AST (15-37) U/L ALT (12-78) U/L Alkaline Phosphatase (45-117) U/L Total Creatine Kinase (26-192) U/L CK-MB (CK-2) (0.5-3.6) ng/ml CK/CKMB % Calc (0-3.0) Troponin I (0-0.045) ng/ml Total Protein (6.4-8.2) gm/dl Albumin (3.4-5.0) gm/dl Globulin (2.5-4.0) gm/dl Albumin/Globulin Ratio (0.9-2) Lipase (73-393) U/L HCG, Qual (Negative) Urine Color Urine Appearance (Clear) Urine pH (4.5-7.5) Ur Specific [place] (1.000-1.030) Urine Protein (Negative) Urine Glucose (UA) (Negative) Urine Ketones (Negative) Urine Blood (Negative) Urine Nitrite (Negative) Urine Bilirubin (Negative) Urine Urobilinogen (Negative) Ur Leukocyte Esterase (Negative) Urine WBC (Auto) (0-5) /hpf Urine RBC (Auto) (0-4) /hpf U Hyaline Cast (Auto) (0-5) /lpf U Epithel Cells (Auto) (0-5) /lpf Urine Bacteria (Auto) (Negative) Salicylates (2.8-20) mg/dl Urine Opiates Screen (Neg) Ur Methadone, Qual (Neg) Acetaminophen (10-30) ug/ml Urine Barbiturates (Neg) Ur Phencyclidine (PCP) (Neg) U Amphetamin/Meth Scrn (Neg) MDMA (Ecstasy) Screen (Neg) U Benzodiazepines Scrn (Neg) Ur Cocaine Metabolite (Neg) U Marijuana (THC) Screen (Neg) Toluene Ethyl Alcohol mg/dL 115.0 H (0-3) mg/dl COVID-19 Eval Order SARS-CoV-2 (PCR) (Negative) Hepatitis A IgM Ab Hep Bs Antigen Hep B Core IgM Ab Hepatitis C Antibody Coding Level of Care Code 06995 Office/OBS Consult Lvl 5 Diagnoses Acute alcohol intoxication F10.920 Complication of substance-induced condition: uncomplicated Nausea & vomiting R11.2 Vomiting Intractability: non-intractable Vomiting type: unspecified Anxiety with depression F41.8 PTSD (post-traumatic stress disorder) F43.10 Admitted to intensive care unit Z78.9 Alcohol dependence F10.220 Complication of substance-induced condition: uncomplicated Substance use status: with intoxication (1) Alcohol dependence Complication of substance-induced condition: uncomplicated Substance use status: with intoxication Qualified Code(s): F10.220 - Alcohol dependence with intoxication, uncomplicated (2) Acute alcohol intoxication Complication of substance-induced condition: uncomplicated Qualified Code(s): F10.920 - Alcohol use, unspecified with intoxication, uncomplicated (3) Nausea & vomiting Vomiting Intractability: non-intractable Vomiting type: unspecified Qualified Code(s): R11.2 - Nausea with vomiting, unspecified
[2020-08-27 08:39] LABS: BUN Creatinine Ratio 8.6 (10-20); Calcium 7.8 mg/dl (8.5-10.1); Creatinine Clr Calc Pharmacy 133.5 ml/min; Est GFR (African American) 118.9 ml/min; Est GFR (Non-African American) 102.5 ml/min
[2020-08-27 08:44] LABS: Potassium 4.8 mmol/L (3.5-5.1)
[2020-08-27] MEDS ORDERED: FAMOTIDINE 20 MG in SYRINGE 3 ML IV SCH (09:00)
[2020-08-27] MEDS: GABAPENTIN 300 MG CAP PO SCH ×3 (09:45→20:53)
[2020-08-27] MEDS: DULoxetine HCL 60 MG CAP PO SCH (09:45)
[2020-08-27] MEDS: hydrOXYzine HCl 25 MG TAB PO SCH ×3 (09:45→20:54)
--- NOTE | 2020-08-27 10:43 | Electrocardiogram Report ---
Test Reason : Blood Pressure : / mmHG Vent. Rate : 111 BPM Atrial Rate : 111 BPM P-R Int : 140 ms QRS Dur : 076 ms QT Int : 380 ms P-R-T Axes : 054 040 038 degrees QTc Int : 516 ms Poor data quality, interpretation may be adversely affected Sinus tachycardia T wave abnormality, consider anterolateral ischemia Abnormal ECG When compared with ECG of 27-MAY-2018 15:54, No significant change was found Confirmed by Bandar Reyes ([id number]) on 08/27/2020 10:42:37 AM Referred By: REFERRED SELF Confirmed By:Bandar Reyes
[2020-08-27] MEDS: PHENobarbital sodium 130 MG/ML VIAL IM SCH ×2 (11:24→14:11)
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
[2020-08-27] MEDS: LORazepam 1 MG/2 ML VIAL IV PRN ×2 (14:59→17:08)
[2020-08-27] MEDS ORDERED: QUEtiapine FUMARATE 200 MG TAB PO SCH (21:00)
[2020-08-27] MEDS ORDERED: PRAZOSIN HCL 1 MG CAP PO SCH (21:00)
[2020-08-28] MEDS: LORazepam 1 MG/2 ML VIAL IV PRN (08:25)
[2020-08-28] MEDS: CHECK CLONIDINE PATCH PLACEMENT SCH (08:28)
[2020-08-28] MEDS: GABAPENTIN 300 MG CAP PO SCH (08:29)
[2020-08-28] MEDS: hydrOXYzine HCl 25 MG TAB PO SCH (08:29)
[2020-08-28] MEDS: DULoxetine HCL 60 MG CAP PO SCH (08:29)
[2020-08-28 08:37] LABS: Hematocrit (blood only) 35.1 % (37-47); Hemoglobin 11.9 g/dL (12.0-16.0); Mean Corpuscular Hgb Conc 33.9 g/dL (32-36); Mean Corpuscular Volume 94.4 fL (80-100); Mean Platelet Volume 9.8 fL (7.4-10.4); Platelet Count 122 K/uL (130-400); RDW Coefficient of Variation 14.9 % (11.5-14.5); RDW Standard Deviation 50.9 fL (36.4-46.3); Red Blood Count 3.72 M/uL (4.2-5.4); White Blood Count 3.94 K/uL (4.8-10.8)
[2020-08-28 08:56] LABS: Basophils # (auto) 0.01 K/uL (0-0.2); Basophils % (auto) 0.3 %; Eosinophils # (auto) 0.03 K/uL (0-0.5); Eosinophils % (auto) 0.8 %; Lymphocytes # (auto) 1.29 K/uL (1.2-3.4); Lymphocytes % (auto) 32.7 %; Monocytes % (auto) 10.2 %; Neutrophils # (auto) 2.21 K/uL (1.4-6.5)
[2020-08-28 09:09] LABS: Albumin Globulin Ratio 1.2 (0.9-2); BUN Creatinine Ratio 16.1 (10-20); Bilirubin,Total 1.2 mg/dl (0.2-1); Calcium 9.1 mg/dl (8.5-10.1); Creatinine Clr Calc Pharmacy 163.6 ml/min; Est GFR (African American) 135.2 ml/min; Est GFR (Non-African American) 116.6 ml/min; Globulin 3.4 gm/dl (2.5-4.0); Potassium 3.6 mmol/L (3.5-5.1); Total Protein 7.4 gm/dl (6.4-8.2)
--- NOTE | 2020-08-28 09:46 | Discharge Summary ---
Date of Service August 28, 2020 Admission HPI Per Admitting Provider The patient is a 35-year-old female with a past medical history including pancreatitis, muscle spasm, anxiety, depression, major depressive disorder, gastroparesis, GERD, PTSD and alcohol abuse. She was most recently seen in the emergency department here from on 07/11/2020, for PTSD with worsening anxiety/depression and increased alcohol intake, and was accepted to [place] for 201 voluntary admission at that time. The patient presents to the emergency department today with the above history. Work-up in the emergency department included following studies: CT angiography of chest was negative for PE but a limited study. CT abdomen pelvis suggest reflux esophagitis and fatty liver. Abnormal laboratories include the following: WBC 12.80 with normal differential, sodium 129, potassium 5.0, chloride 98, bicarb 8, anion gap 23, serum osmolality 316, AST 129, ALT 94, total protein 9.6, globulin 4.6, qualitative hCG negative, urine drug screen negative, alcohol level 115.0, COVID-19 negative. ABG: pH 7.17, PCO2 19, PO2 99, bicarb 7 and O2 sat 96% on room air. Patient is being admitted to the ICU Principal Diagnosis Alcohol withdrawal and dependence, Alcoholic ketoacidosis nausea/vomiting Discharge Exam Constitutional WD/WN, vitals as above + lethargic (but wakes up easily and answers questions) Eyes + anicteric sclerae Neck trachea midline, no thyromegaly Respiratory normal respiratory effort, lungs clear to auscultation Cardiovascular RRR, no murmur, no edema Chest (Breasts) Chest: normal inspection of chest Gastrointestinal (Abdomen) normal bowel sounds, soft, nontender, no hepatosplenomegaly Musculoskeletal Extremities: extremities normal to inspection; no cyanosis and no clubbing Skin no rashes, warm and dry Neurologic moves all extremities and awake; no focal motor deficits Psychiatric Orientation: alert, oriented x 3 and cooperative Eye Contact: + fair eye contact Lymphatic no lymphedema Discharge Data Allergies Allergy/AdvReac Type Severity Reaction Status Date / Time No Known Allergies Allergy Unverified 08/27/20 01:26 Consultations 08/27/20 02:39 ED Decision to Admit Stat 08/27/20 06:49 Consult Windshield Installer Routine Consult Psychiatry Routine Ordered Studies 08/27/20 02:28 CT angio chest PE protocol Urgent 08/27/20 02:57 CT abd pelvis IV con only Urgent Chest CTA 08/27/20 02:28 CT ANGIOGRAPHY OF THE CHEST, PULMONARY EMBOLUS PROTOCOL CLINICAL HISTORY: Chest pain. Vomiting. COMPARISON STUDY: Chest radiograph May 27, 2018. TECHNIQUE: Following IV administration of 120 mL of Optiray, helical axial images of the chest were obtained utilizing the pulmonary embolus protocol. Maximal intensity projections and sagittal and coronal reformats were viewed on an independent 3D workstation. IV contrast was administered without complication. Automated exposure control was utilized for the study. A dose l owering technique was utilized adhering to the principles of ALARA. CT DOSE: 1383.89 mGy.cm FINDINGS: No central pulmonary embolus is identified. Opacification of the lower lobe pulmonary arteries is suboptimal. No pulmonary emboli are identified although sensitivity is diminished. There is no thoracic aortic dissection. The size of the heart is normal. No pericardial effusion. Note is made of moderate circumferential wall thickening of the distal esophagus. There is no pneumothorax or pleural effusion. There is no consolidation. No suspicious pulmonary nodules are present. Abdomen and pelvis will be reported separately. Mild dextroscoliosis of the lower thoracic spine is present. IMPRESSION: 1. Exam compromised by suboptimal opacification. No central pulmonary emboli. Lower lobe pulmonary arteries suboptimally assessed on this exam. 2. No consolidation. 3. Circumferential wall thickening of the distal esophagus which favors esophagitis. ACT 112: Negative or not required by law. Electronically signed by: Hung Stubbs M.D. 08/27/2020 7:32 AM Abdomen/Pelvis CT 08/27/20 02:57 CT OF THE ABDOMEN AND PELVIS WITH CONTRAST CLINICAL HISTORY: Vomiting. COMPARISON STUDY: None. TECHNIQUE: Following IV administration of 120 mL of Optiray, axial images of the abdomen and pelvis were obtained from the lung bases to the proximal femurs. Images were reviewed in the axial, sagittal, and coronal planes. IV contrast was administered without complication. Automated exposure control was utilized for the study. A dose lowering technique was utilized adhering to the principles of ALARA. FINDINGS: Please note that the chest CT will be reported separately. No pneumatosis, free air or portal venous gas is present. There is hepatic steatosis. Exam is mildly compromised by motion artifact. The spleen, adrenal glands, kidneys and pancreas are unremarkable. Is no hydronephrosis. Sensitivity for detection of renal calculi is diminished given excreted contrast. The caliber and wall thickness of small and large bowel are normal. Sigmoid colon is redundant. There is a moderate amount of stool within the colon. There is hyperdense material within the appendix without evidence for acute appendicitis. There is no ascites. No lymphadenopathy is present. Major vasculature is patent. There is no biliary or pancreatic ductal dilatation. Grade I anterolisthesis of L5 on S1 is noted due to bilateral L5 pars defects. Intrauterine device is in place. IMPRESSION: 1. No acute process within the abdomen or pelvis. 2. Hepatic steatosis. 3. Moderate amount of stool within the colon. 4. Hyperdense material within the appendix. No evidence for acute appendicitis. ACT 112: Negative or not required by law. Electronically signed by: Hung Stubbs M.D. 08/27/2020 7:36 AM Hospital Course (1) Admitted to intensive care unit: Admitedt to intensive care unit for treatment of severe metabolic acidosis/high osmolal gap/ alcohol withdrawal- resolved after short time on bicarb gtt Measured osmolality 316, corrected osmolality 296.91, osmolality gap 19.09 Downgraded from ICU on same day of admission (2) Metabolic acidosis, increased anion gap: Received 4 L of IV fluids while in ED. Secondary to dehydration, lactic acidosis and alcoholic ketoacidosis resolved after admission with IVFs, bicarb gtt Work-up for toxic ingestion due to high osmolal gap-toluene pending but no don rn for this as resolved eating and drinking at time of discharge (3) Alcohol withdrawal: AWSS protocol with IV Ativan, phenobarbital , clonidine patch but this can be discontinued phenobarb taper completed at time of discharge had some sinus tachycardia and feeling shaky, improved with IV ativan -continue detox at rehab where she is going as per their portocol (4) Hepatic steatosis: CT demonstrates fatty liver. AST 129, ALT 94 an then trended downward by next day At last visit on 07/10/2020, AST 759, ALT 341 and total bilirubin 1.6 Secondary to EtOH use, needs EtOH cessation, weight loss (5) Reflux esophagitis: continue PPI (6) PTSD (post-traumatic stress disorder): PTSD/anxiety with depression- Consult psychiatry appreciated continue home prazosin (7) Anxiety with depression: continue home meds Seroquel, duloxetine, hydroxyzine, gabapentin Dispo-stable for dc to inaptient EtOH rehab -confirmed they are bale to accept her in current condition and can manage medications for EtOH withdrawal with physician present on site Total Time Total Time Spent Total Time Spent (In Minutes): 35 min Total Time Includes: Examination of the Patient, Discharge Planning and Medication Reconciliation Discharge Plan Discharge Items Patient Disposition: Drug & Alcohol Rehab Reason For Visit: ALCOHOL WITHDRAWAL,SEVERE METABOLIC ACIDOSIS Discharge Diagnosis: Alcohol withdrawal and dependence Alcoholic ketoacidosis Condition on Discharge: Fair Activity: As commented below Lifting: Gradually increase as tolerated Bathing: No limitations Exercise/Sports: Gradually increase as tolerated Non-emergency contact: Primary Care Provider Call non-emergency contact if: you have any medication questions and your symptoms worsen Follow-up/Referrals: Kris Cheung M.D. [Primary Care Provider] - Diet: Regular Addtl Attending Provider Instructions: You are being transferred to an inpatient drug and alcohol rehab facility. Pending Studies at Discharge: Yes Stand-Alone Forms: My [facility] Skilled Items Patient informed of condition?: Yes DNR: No Discharge Level of Care: Other Communicable Disease: No Discharge Prognosis: Improving Lines: None Urinary Catheter: No Medications and DC Order Prescriptions: Continued multivitamin Tablet 1 tab PO QAM RF: 0 hydroxyzine pamoate [Vistaril] 50 mg Capsule 50 mg PO TID RF: 0 gabapentin 300 mg capsule 300 mg PO TID RF: 0 Linzess 145 mcg capsule 145 mcg PO DAILY RF: 0 prazosin 1 mg capsule 3 mg PO HS RF: 0 duloxetine 60 mg capsule,delayed release(DR/EC) 60 mg PO DAILY RF: 0 naltrexone 50 mg tablet 25 mg PO DAILY RF: 0 quetiapine 200 mg tablet 200 mg PO HS RF: 0 pantoprazole 20 mg tablet,delayed release (DR/EC) 20 mg PO DAILY RF: 0 Discontinued cyclobenzaprine 10 mg tablet 10 mg PO BID PRN (Reason: Muscle Spasm) RF: 0 Discharge Orders: Discharge Order (Routine); Ordered 08/28/20 Ordered By: Alta Amanda Admission Data Admit Date/Time: 08/27/20 05:29 Attending Provider: Alta Amanda Admit Provider: Nicolas Lao Primary Care Provider: Kris Cheung Other Providers: Nicolas Lao ; Long Neumann ; Petty Stewart ; Dr Jon ; Della Quach ; Sylvester Rico Coding Level of Care Code D/C Day Management >30 mins Diagnoses Admitted to intensive care unit Z78.9 Metabolic acidosis, increased anion gap E87.2 Alcohol withdrawal F10.239 Complication of substance-induced condition: with unspecified complication Hepatic steatosis K76.0 Reflux esophagitis K21.00 PTSD (post-traumatic stress disorder) F43.10 Anxiety with depression F41.8
[2020-08-28 10:24] LABS: Hepatitis B Surf Ag Rflx Conf Neg (Neg)
[2020-08-28 10:53] LABS: Hepatitis C IgG 13Yrs+Old_Rflx Neg (Neg)
[2020-08-30 15:21] LABS: Hepatitis A Antibody IgM NON-REACTIVE (NON-REACTIVE); Hepatitis B Core Antibody IgM NON-REACTIVE (NON-REACTIVE)
[2020-08-31 08:46] LABS: 7-Aminoclonazepam NEGATIVE ng/mL (<25); Alpha-Hydroxyalprazolam NEGATIVE ng/mL (<25); Alphahydroxymidazolam NEGATIVE ng/mL (<50); Alphahydroxytriazolam NEGATIVE ng/mL (<50); Amobarbital DNR ng/mL (<100); Amphetamines, Ur NEGATIVE ng/mL (<500); Amphetemines Ur GC/MS DNR ng/mL (<250); Barbiturates, Urine NEGATIVE ng/mL (<300); Benzodiazepines,Ur POSITIVE ng/mL (<100); Butalbital DNR ng/mL (<100); Cocaine, Urine NEGATIVE ng/mL (<150); Cocaine,Ur GC/MS DNR ng/mL (<100); Codeine DNR ng/mL (<50); Confirmatory Facility DNR; EDDP DNR ng/mL (<100); Hydrocodone DNR ng/mL (<50); Hydromorphone DNR ng/mL (<50); Hydroxyethylflurazepam NEGATIVE ng/mL (<50); Lorazepam 354 ng/mL (<50); Methadone, Ur GC/MS NEGATIVE ng/mL (<100); Methadone, Urine DNR ng/mL (<100); Methamphetamine DNR ng/mL (<250); Morphine DNR ng/mL (<50); Norhydrocodone DNR ng/mL (<50); Noroxycodone DNR ng/mL (<50); Opiates, Urine NEGATIVE ng/mL (<100); Oxycodone,Ur Screen NEGATIVE ng/mL (<100); Pentobarbital DNR ng/mL (<100); Phencyclidine, Ur NEGATIVE ng/mL (<25); Phencyclidine,Ur GC/MS DNR ng/mL (<25); Secobarbital DNR ng/mL (<100); THC20, Qual, Urine NEGATIVE ng/mL (<20); Temazepam NEGATIVE ng/mL (<50); Tetrahydrocannabinol DNR ng/mL (<5)
[2020-09-02] MEDS ORDERED: cloNIDine HCL 0.3 MG/24 HR TRANSDERM SYS TD SCH (21:00)
== END 2020-08-28 11:35 | disposition alcohol treatment (31) ==
LOC: ED 00:19 → 1E 05:29 → INTOOBSV 05:29 → SUATTDRO 05:29 → 1E 06:44 → 2N 14:35

== ENCOUNTER 2020-09-26 00:16 | Observation (INO) ==
[2020-09-26] MEDS ORDERED: MULTI-VITAMIN INFUSION 10 ML, THIAMINE HCL 100 MG, FOLIC ACID 1 MG in SODIUM CHLORIDE 0... IV ONE (01:00)
[2020-09-26] MEDS ORDERED: LORazepam 2 MG/4 ML VIAL IV STA (01:00)
--- NOTE | 2020-09-26 01:06 | Emergency Department Note ---
Impression & Plan Alcohol intoxication, Acute anxiety ED Provider Note Name: PHILLIP AMARO Age: 35 Sex: F Arrives Via: Walk-In Informant: Patient ED Provider: Gabino Grijalva MD Chief Complaint: Alcohol withdrawal Impression: Alcohol Intoxication Acute Anxiety Medical Decision Makin yr old heavily intoxicated female with recent stay at rehab post ICU stay here after intoxication. She relapsed last week and arrives requesting hospitalization and rehab placement. She is tremulous and tachy, though I feel this is more anxious about situation rather than withdrawal, especially given ETOH 450. She is afebrile without signs of infection at this time. She is somewhat dehydrated and banana bag started. With her previous withdrawal history and severe level intoxication at this time I do not feel it would be safe to medically monitor/clear her in ED and thus hospitalist consulted for further management. Prior Medical Record and Triage/Nursing Notes reviewed by Me Additional history obtained from chart and hospitalist Differentials:Alcohol intoxication, withdrawal, toxicologic, infection, hypoglycemia, electrolyte abnormalities, cardiac sources, intracerebral event, neurologic, trauma, as well as other pathologies. Vital Signs: reviewed and remarkable for tachy/HTN Interventions: Ativan 2mg IV, Bananabag 1l IV Labs:Reviewed and remarkable for +++ETOH Cardiac/Tele Monitoring: Cardiac Monitoring: An Order was placed for continuous cardiac monitoring. The monitor shows a rate of 110 with a sinus tach rhythm. Consults:Dr Shilo PHAN Hospitalist Plan: Disposition:Hospitalization. Condition: Good History of Present Illness:35 yr old female arrives for evaluation of alcohol withdrawal. Patient with recent hospitalization and then brief stay in alcohol rehab last month. She relapsed last week and has been drinking daily for the last 7 to 10 days. Tried quitting today and began having shakes. She did drink some a few hours prior to arrival to help. Notes worsening shakes, chills, and unsteady. She wishes rehab but unable to place due to worsening shakes and advised to go to ED by rehab. Notes previous seizures and severe withdrawal requiring previous ICU hospitalizations. No fevers, chills, headache, abdominal pain, back pain, urinary/bowel issues, leg swelling, bruising, syncope nor other symptoms. No trauma, injury, falls. Alcohol makes better, no drinking makes withdrawal worse. ROS: See above HPI for pertinent positives & negatives. A total of 10 systems reviewed and were otherwise negative. Past Medical History:PTSD, Anxiety, Alcohol abuse, GERD Past Surgical History: Family History:Non contributory Social History:Unemployed, daily etoh, no drugs, non smoker Home Medications:See Below Allergies:NKDA Vitals:Blood Pressure: 174/136, Pulse 124, RR 20, T 36C, O2 97% on RA Physical Exam: GENERAL: Patient is anxious/intoxicated appearing and in mild distress. Dehydrated appearing, Tremulous EYES: No scleral icterus, unremarkable pupils. ENT: Mucous membranes dry, no nasal congestion. NECK: No masses appreciated, nomeningismus, trachea is midline. RESPIRATORY: No dyspnea. Clear to auscultation and equal bilaterally. No wheeze, no rhonchi. CARDIOVASCULAR: Tachy.No murmurs, rubs, gallops appreciated. GASTROINTESTINAL: Abdomen soft, non-tender, no peritonitis.Bowel sounds positive.No masses appreciated. BACK: No midline tenderness, no CVA tenderness EXTREMITIES: Normal motion all extremities, no cyanosis, no edema. NEUROLOGIC: Tremulous/Shaking, Alert and oriented, no acute motor or sensory deficits, no focal weakness, cranial nerves grossly intact. SKIN: No rash, no jaundice, no diaphoresis. PSYCH: Mildly intoxicated GCS: 15 ED Course: Times/Reassessments: much improved and sleeping though easily awakens. Gabino Grijalva MD Past Med/Surg History Medical History Alcohol abuse Anxiety with depression Hepatic steatosis No pertinent family history Pancreatitis PTSD (post-traumatic stress disorder) Surgical History Previous section Social History Smoking Status: Never smoker Hx Alcohol Use: Yes Alcohol type: hard liquor Hx Substance Use: No Preferred Language: Bengali Communication Ability: Effective Security Shift Manager Required: No Beliefs That Will Affect Care: None marital status: Current Living Situation: Family Feels Safe at Home: Yes Assistive Devices: None Allergies Allergies Allergy/AdvReac Type Severity Reaction Status Date / Time No Known Allergies Allergy Unverified 09/26/20 01:25 Home Meds Home Medications Medication Instructions Recorded Confirmed gabapentin 300 mg PO TID 05/27/18 09/26/20 hydroxyzine pamoate [Vistaril] 50 mg PO TID 05/27/18 09/26/20 multivitamin 1 tab PO QAM 05/27/18 09/26/20 Linzess 145 mcg PO DAILY 07/10/20 09/26/20 prazosin 3 mg PO HS 07/10/20 09/26/20 duloxetine 60 mg PO DAILY 08/27/20 09/26/20 quetiapine 200 mg PO HS 08/27/20 09/26/20 metoprolol succinate 25 mg PO DAILY 09/26/20 09/26/20 Results & Data (ED) Vital Signs Vital Signs - 24 hr 09/26/20 00:26 09/26/20 01:30 09/26/20 02:03 Temperature 36 C L Temperature Source Temporal Artery Scan Pulse Rate 124 H Respiratory Rate 20 18 16 Blood Pressure 174/136 H Blood Pressure [Left Arm] 120/98 113/58 L Blood Pressure Mean 148 Blood Pressure Mean [Left Arm] 105 76 Pulse Oximetry 97 92 93 Oxygen Delivery Method Room Air Room Air Room Air Sepsis Recent Fever Within 48 Hours No Sepsis New/Unexplained Change in Mental Status No Sepsis Action Taken by Nursing No Action Required Laboratory Data Result diagrams: 09/26/20 01:12 09/26/20 01:12 Lab Results 09/26/20 09/26/20 09/26/20 Range/Units 01:12 01:12 01:12 WBC 8.80 (4.8-10.8) K/uL RBC 4.68 (4.2-5.4) M/uL Hgb 14.8 (12.0-16.0) g/dL Hct 42.4 (37-47) % MCV 90.6 (80-100) fL MCH 31.6 (25-34) pg MCHC 34.9 (32-36) g/dL RDW Std Deviation 46.5 H (36.4-46.3) fL RDW Coeff of [place]all[place] 14.2 (11.5-14.5) % Plt Count 295 (130-400) K/uL MPV 10.1 (7.4-10.4) fL Neutrophils % (Manual) 43.8 % Lymphocytes % (Manual) 30.7 % Monocytes % (Manual) 4.4 % Basophils % (Manual) 1.8 % Neutrophils # (Manual) 3.85 (1.4-6.5) K/uL Total Absolute Neuts 3.85 (1.4-6.5) K/uL Lymphocytes # (Manual) 2.70 (1.2-3.4) K/uL Total Abs Lymphocytes 4.40 H (1.2-3.4) K/uL Monocytes # (Manual) 0.39 (0.11-0.59) K/uL Basophils # (Manual) 0.16 (0-0.2) K/uL Large Granular Lymphs 19.3 % # Lrg Granular Lymphs 1.70 K/uL RBC Morphology Unremarkable Sodium 138 (136-145) mmol/L Potassium 3.5 (3.5-5.1) mmol/L Chloride 104 (98-107) mmol/L Carbon Dioxide 22 (21-32) mmol/L Anion Gap 12.0 H (3-11) BUN 10 (7-18) mg/dl Creatinine 0.80 (0.6-1.2) mg/dl Est Cr Clr Drug Dosing 124.5 ml/min Est GFR ( Amer) 109.9 ml/min Est GFR (Non-Af Amer) 94.9 ml/min BUN/Creatinine Ratio 13.0 (10-20) Glucose 96 (70-99) mg/dl Calcium 8.5 (8.5-10.1) mg/dl Magnesium 2.1 (1.8-2.4) mg/dl Total Bilirubin 0.7 (0.2-1) mg/dl AST 96 H (15-37) U/L ALT 93 H (12-78) U/L Alkaline Phosphatase 82 (45-117) U/L Total Protein 7.8 (6.4-8.2) gm/dl Albumin 4.1 (3.4-5.0) gm/dl Globulin 3.7 (2.5-4.0) gm/dl Albumin/Globulin Ratio 1.1 (0.9-2) TSH 2.390 (0.300-4.500) uIu/ml Urine Color Urine Appearance (Clear) Urine pH (4.5-7.5) Ur Specific [place] (1.000-1.030) Urine Protein (Negative) Urine Glucose (UA) (Negative) Urine Ketones (Negative) Urine Blood (Negative) Urine Nitrite (Negative) Urine Bilirubin (Negative) Urine Urobilinogen (Negative) Ur Leukocyte Esterase (Negative) Urine WBC (Auto) (0-5) /hpf Urine RBC (Auto) (0-4) /hpf U Hyaline Cast (Auto) (0-5) /lpf U Epithel Cells (Auto) (0-5) /lpf Urine Bacteria (Auto) (Negative) Salicylates < 1.7 L (2.8-20) mg/dl Urine Opiates Screen (Neg) Ur Methadone, Qual (Neg) Acetaminophen < 2 L (10-30) ug/ml Urine Barbiturates (Neg) Ur Phencyclidine (PCP) (Neg) U Amphetamin/Meth Scrn (Neg) MDMA (Ecstasy) Screen (Neg) U Benzodiazepines Scrn (Neg) Ur Cocaine Metabolite (Neg) U Marijuana (THC) Screen (Neg) Ethyl Alcohol mg/dL (0-3) mg/dl 09/26/20 09/26/20 09/26/20 Range/Units 01:12 02:00 02:00 WBC (4.8-10.8) K/uL RBC (4.2-5.4) M/uL Hgb (12.0-16.0) g/dL Hct (37-47) % MCV (80-100) fL MCH (25-34) pg MCHC (32-36) g/dL RDW Std Deviation (36.4-46.3) fL RDW Coeff of Dallin (11.5-14.5) % Plt Count (130-400) K/uL MPV (7.4-10.4) fL Neutrophils % (Manual) % Lymphocytes % (Manual) % Monocytes % (Manual) % Basophils % (Manual) % Neutrophils # (Manual) (1.4-6.5) K/uL Total Absolute Neuts (1.4-6.5) K/uL Lymphocytes # (Manual) (1.2-3.4) K/uL Total Abs Lymphocytes (1.2-3.4) K/uL Monocytes # (Manual) (0.11-0.59) K/uL Basophils # (Manual) (0-0.2) K/uL Large Granular Lymphs % # Lrg Granular Lymphs K/uL RBC Morphology Sodium (136-145) mmol/L Potassium (3.5-5.1) mmol/L Chloride (98-107) mmol/L Carbon Dioxide (21-32) mmol/L Anion Gap (3-11) BUN (7-18) mg/dl Creatinine (0.6-1.2) mg/dl Est Cr Clr Drug Dosing ml/min Est GFR ( Amer) ml/min Est GFR (Non-Af Amer) ml/min BUN/Creatinine Ratio (10-20) Glucose (70-99) mg/dl Calcium (8.5-10.1) mg/dl Magnesium (1.8-2.4) mg/dl Total Bilirubin (0.2-1) mg/dl AST (15-37) U/L ALT (12-78) U/L Alkaline Phosphatase (45-117) U/L Total Protein (6.4-8.2) gm/dl Albumin (3.4-5.0) gm/dl Globulin (2.5-4.0) gm/dl Albumin/Globulin Ratio (0.9-2) TSH (0.300-4.500) uIu/ml Urine Color Yellow Urine Appearance Cloudy A (Clear) Urine pH 5.5 (4.5-7.5) Ur Specific [place] 1.005 (1.000-1.030) Urine Protein Negative (Negative) Urine Glucose (UA) Negative (Negative) Urine Ketones Negative (Negative) Urine Blood 1+ H (Negative) Urine Nitrite Negative (Negative) Urine Bilirubin Negative (Negative) Urine Urobilinogen Negative (Negative) Ur Leukocyte Esterase Negative (Negative) Urine WBC (Auto) 1-5 (0-5) /hpf Urine RBC (Auto) 0-4 (0-4) /hpf U Hyaline Cast (Auto) 1-5 (0-5) /lpf U Epithel Cells (Auto) 10-20 H (0-5) /lpf Urine Bacteria (Auto) Negative (Negative) Salicylates (2.8-20) mg/dl Urine Opiates Screen Neg (Neg) Ur Methadone, Qual Neg (Neg) Acetaminophen (10-30) ug/ml Urine Barbiturates Neg (Neg) Ur Phencyclidine (PCP) Neg (Neg) U Amphetamin/Meth Scrn Neg (Neg) MDMA (Ecstasy) Screen Neg (Neg) U Benzodiazepines Scrn Neg (Neg) Ur Cocaine Metabolite Neg (Neg) U Marijuana (THC) Screen Neg (Neg) Ethyl Alcohol mg/dL 449.0 H (0-3) mg/dl Administered Medications Discontinued Medications Lorazepam (Ativan) 2 mg in 4 mls @ 4 mls/min IV NOW STA Stop: 09/26/20 01:01 Last Admin: 09/26/20 01:21 Dose: 4 mls/min Documented by: [id number] Multivitamins 10 ml/ Thiamine HCl 100 mg/ Folic Acid 1 mg/Sodium Chloride 1,011.2 mls @ 1,011.2 mls/hr IV .Q1H ONE Stop: 09/26/20 01:59 Last Infusion: 09/26/20 04:33 Dose: 0 mls/hr Documented by: [id number] Admin: 09/26/20 01:57 Dose: 1,011.2 mls/hr Documented by: [id number] Discharge Plan Visit Data Chief Complaint: Alcohol Withdrawal Stated Complaint: ALCOHOL WITHDRAWL ED Provider: Gabino Grijalva Discharge Problem: Alcohol intoxication, Acute anxiety Patient Disposition: Admitted As Inpatient Discharge Instructions Interventions: ED Discharge Assessment Last Done: 09/26/20 06:03 Discharge Problem: Alcohol intoxication Qualifiers: Complication of substance-induced condition: uncomplicated Qualified Code(s): F10.920 - Alcohol use, unspecified with intoxication, uncomplicated
[2020-09-26 01:31] LABS: Hematocrit (blood only) 42.4 % (37-47); Hemoglobin 14.8 g/dL (12.0-16.0); Mean Corpuscular Hemoglobin 31.6 pg (25-34); Mean Corpuscular Hgb Conc 34.9 g/dL (32-36); Mean Corpuscular Volume 90.6 fL (80-100); Mean Platelet Volume 10.1 fL (7.4-10.4); Platelet Count 295 K/uL (130-400); RDW Coefficient of Variation 14.2 % (11.5-14.5); RDW Standard Deviation 46.5 fL (36.4-46.3); Red Blood Count 4.68 M/uL (4.2-5.4)
[2020-09-26 01:52] LABS: Albumin Level 4.1 gm/dl (3.4-5.0); Calcium 8.5 mg/dl (8.5-10.1); Creatinine Clr Calc Pharmacy 124.5 ml/min; Est GFR (African American) 109.9 ml/min; Est GFR (Non-African American) 94.9 ml/min; Magnesium 2.1 mg/dl (1.8-2.4); Potassium 3.5 mmol/L (3.5-5.1)
[2020-09-26 02:03] LABS: Albumin Globulin Ratio 1.1 (0.9-2); Bilirubin,Total 0.7 mg/dl (0.2-1); Globulin 3.7 gm/dl (2.5-4.0); Thyroid Stimulating Hormone 2.39 uIu/ml (0.300-4.500); Total Protein 7.8 gm/dl (6.4-8.2)
[2020-09-26 02:06] LABS: Acetaminophen < 2 ug/ml (10-30); Salicylate < 1.7 mg/dl (2.8-20)
[2020-09-26 02:15] LABS: Appearance Urine Cloudy (Clear); Bacteria Urine Automated Negative (Negative); Bilirubin Urine Negative (Negative); Blood Urine 1+ (Negative); Color Urine Yellow; Glucose Urine UA Negative (Negative); Ketones Urine Negative (Negative); Leukocyte Esterase Urine Negative (Negative); Nitrite Urine Negative (Negative); Protein Urine Negative (Negative); RBC Urine Automated 0-4 /hpf (0-4); Specific Gravity Urine 1.005 (1.000-1.030); Urobilinogen Urine Negative (Negative); pH Urine 5.5 (4.5-7.5)
[2020-09-26 02:20] LABS: ANC (manual) 3.85 K/uL (1.4-6.5); Basophils # (manual) 0.16 K/uL (0-0.2); Basophils % (manual) 1.8 %; Large Granular Lymph % (manual) 19.3 %; Lymphocytes % (manual) 30.7 %; Monocytes # (manual) 0.39 K/uL (0.11-0.59); Monocytes % (manual) 4.4 %; Neutrophils # (manual) 3.85 K/uL (1.4-6.5); Neutrophils % (manual) 43.8 %; RBC Morphology Unremarkable
[2020-09-26 02:32] LABS: Amphetamines+Metham, Urine Neg (Neg); Barbiturates, Urine Neg (Neg); Benzodiazepine, Urine Neg (Neg); Cocaine, Urine Neg (Neg); MDMA (Ecstacy), Urine Neg (Neg); Methadone, Urine Neg (Neg); Opiate, Urine Neg (Neg); Phencyclidine, Urine Neg (Neg)
--- NOTE | 2020-09-26 04:00 | History & Physical Report ---
Date of Service September 26, 2020 Assessment & Plan (1) Alcohol withdrawal: Alcohol withdrawal/alcohol dependence- AWSS protocol with IV Ativan NSS + KCl 20 mEq at 100 mils per hour Zofran 4 mg IV every 6 hours as needed Consult social worker health services Present on Admission?: Yes (2) Alcohol dependence: Counseling Present on Admission?: Yes (3) Anxiety with depression: Anxiety with depression/PTSD- Continue duloxetine, gabapentin, hydroxyzine, prazosin and quetiapine Present on Admission?: Yes (4) PTSD (post-traumatic stress disorder): See above Present on Admission?: Yes (5) Hepatic steatosis: AST and ALT are within her usual range Present on Admission?: Yes History of Present Illness Chief Complaint: The patient presents to the emergency department with concerns regarding alcohol withdrawal Primary Care Provider: Kris Cheung The patient is a 35-year-old female with past medical history including alcohol dependence, alcohol withdrawal, anxiety with depression, PTSD, reflux esophagitis, hepatic steatosis, and gastric dysmotility. She was most recently admitted from 08/27-08/28/2020 for similar symptoms. Her significant other, who is with her pacoight, reports that she developed concerns regarding withdrawal again as she began drinking alcohol a few days ago. She did speak with a company called [facility] on the phone a few days ago, where she had undergone rehab previously, and has expressed a desire to go there again for inpatient rehab Allergies Allergy/AdvReac Type Severity Reaction Status Date / Time No Known Allergies Allergy Unverified 09/26/20 01:25 Home Medications Medication Instructions Recorded Confirmed Type gabapentin 300 mg PO TID 05/27/18 09/26/20 History hydroxyzine pamoate [Vistaril] 50 mg PO TID 05/27/18 09/26/20 History multivitamin 1 tab PO QAM 05/27/18 09/26/20 History Linzess 145 mcg PO DAILY 07/10/20 09/26/20 History prazosin 3 mg PO HS 07/10/20 09/26/20 History duloxetine 60 mg PO DAILY 08/27/20 09/26/20 History quetiapine 200 mg PO HS 08/27/20 09/26/20 History metoprolol succinate 25 mg PO DAILY 09/26/20 09/26/20 History Past Med/Surg History Medical History Alcohol abuse Anxiety with depression Hepatic steatosis No pertinent family history Pancreatitis PTSD (post-traumatic stress disorder) Surgical History Previous section Social History Smoking Status: Never smoker Hx Alcohol Use: Yes Alcohol type: hard liquor Hx Substance Use: No Preferred Language: Bahraini Communication Ability: Effective Per Diem Required: No Beliefs That Will Affect Care: None marital status: Current Living Situation: Family Feels Safe at Home: Yes Assistive Devices: None Review of Systems Review of Systems: The patient denies chest pain, palpitations, shortness of breath, dyspnea on exertion, cough, lower extremity swelling, sore throat, fevers, chills, sweats, nausea, vomiting, diarrhea , constipation, abdominal pain, pelvic pain, blood in urine or stool, dysuria, urinary frequency or urgency, memory loss, loss of consciousness, rash, abnormal bruising or bleeding, imbalance, focal or generalized weakness, numbness or tingling in arms or legs, generalized arthralgias or myalgias, back or neck pain, or night sweats. The review of systems is otherwise negative other than for that already noted above, and at least 10 systems have been reviewed. Physical Exam Physical Exam: The patient is awake, alert and oriented 3, well developed and well nourished, normocephalic and atraumatic, lying in bed and in no acute distress. HEENT--PERRL, EOMI, mucous membranes and oropharynx dry. Neck--supple. No JVD. No bruits. Thyroid normal, trachea midline, no adenopathy. Heart--normal S1 and S2. No murmurs, rubs or gallops. Lungs--clear bilaterally, no respiratory distress, no accessory muscle use. Abdomen--normal bowel sounds and soft. Nontender. Nondistended. Extremities--no cyanosis or clubbing. No edema. Dermatologic--normal skin turgor, normal color, no abnormal lymph nodes, no rash. Neurologic--cranial nerves II through XII grossly intact. Rheumatologic--normal range of motion. Psychiatric--normal affect. Results & Data Results & Data ([facility]) Vital Signs (Past 12 Hours) Vital Signs Temp Pulse Resp BP BP Pulse Ox 09/26/20 02:03 16 113/58 L 93 09/26/20 01:30 18 120/98 92 09/26/20 00:26 96.8 F L 124 H 20 174/136 H 97 Laboratory Results Laboratory Results WBC 8.80 K/uL (4.8-10.8) 09/26/20 01:12 RBC 4.68 M/uL (4.2-5.4) 09/26/20 01:12 Hgb 14.8 g/dL (12.0-16.0) 09/26/20 01:12 Hct 42.4 % (37-47) 09/26/20 01:12 MCV 90.6 fL (80-100) 09/26/20 01:12 MCH 31.6 pg (25-34) 09/26/20 01:12 MCHC 34.9 g/dL (32-36) 09/26/20 01:12 RDW Std Deviation 46.5 fL (36.4-46.3) H 09/26/20 01:12 RDW Coeff of Dallin 14.2 % (11.5-14.5) 09/26/20 01:12 Plt Count 295 K/uL (130-400) 09/26/20 01:12 MPV 10.1 fL (7.4-10.4) 09/26/20 01:12 Neutrophils % (Manual) 43.8 % 09/26/20 01:12 Lymphocytes % (Manual) 30.7 % 09/26/20 01:12 Monocytes % (Manual) 4.4 % 09/26/20 01:12 Basophils % (Manual) 1.8 % 09/26/20 01:12 Neutrophils # (Manual) 3.85 K/uL (1.4-6.5) 09/26/20 01:12 Total Absolute Neuts 3.85 K/uL (1.4-6.5) 09/26/20 01:12 Lymphocytes # (Manual) 2.70 K/uL (1.2-3.4) 09/26/20 01:12 Total Abs Lymphocytes 4.40 K/uL (1.2-3.4) H 09/26/20 01:12 Monocytes # (Manual) 0.39 K/uL (0.11-0.59) 09/26/20 01:12 Basophils # (Manual) 0.16 K/uL (0-0.2) 09/26/20 01:12 Large Granular Lymphs 19.3 % 09/26/20 01:12 # Lrg Granular Lymphs 1.70 K/uL 09/26/20 01:12 RBC Morphology Unremarkable 09/26/20 01:12 Sodium 138 mmol/L (136-145) 09/26/20 01:12 Potassium 3.5 mmol/L (3.5-5.1) 09/26/20 01:12 Chloride 104 mmol/L (98-107) 09/26/20 01:12 Carbon Dioxide 22 mmol/L (21-32) 09/26/20 01:12 Anion Gap 12.0 (3-11) H 09/26/20 01:12 BUN 10 mg/dl (7-18) 09/26/20 01:12 Creatinine 0.80 mg/dl (0.6-1.2) 09/26/20 01:12 Est Cr Clr Drug Dosing 124.5 ml/min 09/26/20 01:12 Est GFR ( Amer) 109.9 ml/min 09/26/20 01:12 Est GFR (Non-Af Amer) 94.9 ml/min 09/26/20 01:12 BUN/Creatinine Ratio 13.0 (10-20) 09/26/20 01:12 Glucose 96 mg/dl (70-99) 09/26/20 01:12 Calcium 8.5 mg/dl (8.5-10.1) 09/26/20 01:12 Magnesium 2.1 mg/dl (1.8-2.4) 09/26/20 01:12 Total Bilirubin 0.7 mg/dl (0.2-1) 09/26/20 01:12 AST 96 U/L (15-37) H 09/26/20 01:12 ALT 93 U/L (12-78) H 09/26/20 01:12 Alkaline Phosphatase 82 U/L (45-117) 09/26/20 01:12 Total Protein 7.8 gm/dl (6.4-8.2) 09/26/20 01:12 Albumin 4.1 gm/dl (3.4-5.0) 09/26/20 01:12 Globulin 3.7 gm/dl (2.5-4.0) 09/26/20 01:12 Albumin/Globulin Ratio 1.1 (0.9-2) 09/26/20 01:12 TSH 2.390 uIu/ml (0.300-4.500) 09/26/20 01:12 Urine Color Yellow 09/26/20 02:00 Urine Appearance Cloudy (Clear) A 09/26/20 02:00 Urine pH 5.5 (4.5-7.5) 09/26/20 02:00 Ur Specific [place] 1.005 (1.000-1.030) 09/26/20 02:00 Urine Protein Negative (Negative) 09/26/20 02:00 Urine Glucose (UA) Negative (Negative) 09/26/20 02:00 Urine Ketones Negative (Negative) 09/26/20 02:00 Urine Blood 1+ (Negative) H 09/26/20 02:00 Urine Nitrite Negative (Negative) 09/26/20 02:00 Urine Bilirubin Negative (Negative) 09/26/20 02:00 Urine Urobilinogen Negative (Negative) 09/26/20 02:00 Ur Leukocyte Esterase Negative (Negative) 09/26/20 02:00 Urine WBC (Auto) 1-5 /hpf (0-5) 09/26/20 02:00 Urine RBC (Auto) 0-4 /hpf (0-4) 09/26/20 02:00 U Hyaline Cast (Auto) 1-5 /lpf (0-5) 09/26/20 02:00 U Epithel Cells (Auto) 10-20 /lpf (0-5) H 09/26/20 02:00 Urine Bacteria (Auto) Negative (Negative) 09/26/20 02:00 Salicylates < 1.7 mg/dl (2.8-20) L 09/26/20 01:12 Urine Opiates Screen Neg (Neg) 09/26/20 02:00 Ur Methadone, Qual Neg (Neg) 09/26/20 02:00 Acetaminophen < 2 ug/ml (10-30) L 09/26/20 01:12 Urine Barbiturates Neg (Neg) 09/26/20 02:00 Ur Phencyclidine (PCP) Neg (Neg) 09/26/20 02:00 U Amphetamin/Meth Scrn Neg (Neg) 09/26/20 02:00 MDMA (Ecstasy) Screen Neg (Neg) 09/26/20 02:00 U Benzodiazepines Scrn Neg (Neg) 09/26/20 02:00 Ur Cocaine Metabolite Neg (Neg) 09/26/20 02:00 U Marijuana (THC) Screen Neg (Neg) 09/26/20 02:00 Ethyl Alcohol mg/dL 449.0 mg/dl (0-3) H 09/26/20 01:12 COVID-19 Eval Order Covid19 at [facility] 09/26/20 03:37 Code Status & VTE Plan Code Status Full code VTE Prophylaxis Plan VTE Prophylaxis will be ordered: Yes PG Care Time/CCT Total # of Minutes Spent Total Time Spent with Patient: Total time spent is greater than 50% in coordination of care (as documented) at patient's floor/unit and/or counseling patient: Coding Level of Care Code 09189 Initial Inpt Care Lvl 2 Diagnoses Alcohol withdrawal F10.239 Complication of substance-induced condition: with unspecified complication Alcohol dependence F10.220 Substance use status: with intoxication Complication of substance-induced condition: uncomplicated Anxiety with depression F41.8 PTSD (post-traumatic stress disorder) F43.10 Hepatic steatosis K76.0 (1) Alcohol dependence Substance use status: with intoxication Complication of substance-induced condition: uncomplicated Qualified Code(s): F10.220 - Alcohol dependence with intoxication, uncomplicated (2) Alcohol withdrawal Complication of substance-induced condition: with unspecified complication Qualified Code(s): F10.239 - Alcohol dependence with withdrawal, unspecified
[2020-09-26] MEDS ORDERED: LORazepam 3 MG/6 ML VIAL IV PRN (06:15)
[2020-09-26] MEDS ORDERED: ATIVAN IV ALCOHOL WITHDRAWL IV PRN (06:15)
[2020-09-26] MEDS ORDERED: LORazepam 2 MG/4 ML VIAL IV PRN (06:15)
[2020-09-26] MEDS: NSS + 20MEQ KCL 20 MEQ/1,000 ML BAG IV SCH ×2 (07:34→17:36)
[2020-09-26] MEDS: ENOXAPARIN INJ 40 MG/0.4 ML SYR SQ SCH (07:34)
[2020-09-26] MEDS: ONDANSETRON INJ 2 MG/ML 2 ML VIAL IV PRN ×2 (07:49→22:32)
[2020-09-26] MEDS: FOLIC ACID 1 MG TAB PO SCH (08:06)
[2020-09-26] MEDS: THIAMINE HCL 100 MG TAB PO SCH (08:06)
[2020-09-26] MEDS: GABAPENTIN 300 MG CAP PO SCH ×3 (08:07→19:29)
[2020-09-26] MEDS: MULTIVITAMIN TAB PO SCH (08:07)
[2020-09-26] MEDS: DULoxetine HCL 60 MG CAP PO SCH (08:07)
[2020-09-26] MEDS: METOPROLOL SUCC 25MG EXT REL TAB PO SCH (08:07)
[2020-09-26] MEDS: hydrOXYzine HCl 25 MG TAB PO SCH ×3 (08:07→19:29)
[2020-09-26] MEDS: LINACLOTIDE 145 MCG CAPSULE PO SCH (08:07)
--- NOTE | 2020-09-26 09:21 | Hospitalist Progress Note ---
Date of Service September 26, 2020 Assessment & Plan (1) Alcohol withdrawal: Alcohol withdrawal/alcohol dependence- EtOH 449 on admission AWSS protocol with IV Ativan --> Most recent AWSS 4 NSS + KCl 20 mEq @ 100cc/hr Zofran 4 mg IV every 6 hours as needed, added Phenergan as nausea despite this this morning. Also added Protonix 40mg daily for reflux. Will also order troponin, EKG w CP Consult psychiatric social worker, psych liaison Already on gabapentin daily but states she had success in past with Librium taper for withdrawal. --> Started Librium taper 09/26 given prior reported success. Anion gap 12 and on continuous IVF BMP repeat scheduled for 12:00. Last admission required bicarb gtt for alcoholic ketosis/starvation ketosis --> repeat anion gap 12. Ordered Bicarb IV x 1 Repeat labs this evening (2) Alcohol dependence: Counseling Psych liaison / CM for SS Also with reflux, likely exacerbated by alcohol, no evidence of bleeding. Added Protonix 40mg daily for epigastric discomfort (3) Anxiety with depression: Anxiety with depression/PTSD- Continue duloxetine, gabapentin, hydroxyzine, prazosin and quetiapine (4) PTSD (post-traumatic stress disorder): See above (5) Hepatic steatosis: AST and ALT are within her usual range, (Tbili wnl now) --less than last admission but slightly up from admit but expect normalization as alcohol coming out of her system Continue to trend in AM Dispo: continued inpatient stay Admission and Anticipated Discharge Date Admission Date: September 26, 2020 Subjective BRIDGE NOTE: ADMITTED AFTER MIDNIGHT Patient seen this morning. Feeling tired . Given emesis bag as she became nauseous after sitting upright. Chest discomfort but not pain in epigastric region, similar to previous episodes. She notes she was at [facility] for about 7 days and once she was home, about a week ago, she relapsed and started drinking again. Approximately pint of rum daily for the past week. Discussed likely some reflux and she has not been on any PPI. No blood repor rocael/emesis however feels like she has to vomit currently after sitting upright. Anxious, but still would like D&A rehab at d/c. Will consult psychiatric liason to help with process. No fever, chills but does endorse clamminess. No shortness of breath. Review of Systems Review of Systems: All systems reviewed & are unremarkable except as noted in HPI & below Physical Exam Constitutional: WD/WN, vitals as above cooperative and comfortable (began nausea at end of conversation sitting upright); no acute distress Eyes: + anicteric sclerae and PERRL Neck: normal visual inspection Respiratory: normal respiratory effort, lungs clear to auscultation Cardiovascular: Rate/Rhythm: regular rhythm and + tachycardic Heart Sounds: no murmur Vessels: no JVD Gastrointestinal (Abdomen): normal bowel sounds, soft, nontender, no hepatosplenomegaly Musculoskeletal: no cyanosis or clubbing, extremities motor strength 5/5 Skin: + turgor decreased; no rashes and no lesions Neurologic: PERRL, EOMI, accommodation nl, no face palsy, no dysarthria Psychiatric: Orientation: alert and oriented x 3 Results & Data Results & Data ([facility]) Vital Signs (Past 12 Hours) Vital Signs Temp Pulse Pulse Resp BP BP Pulse Ox 09/26/20 08:00 36.6 C 114 H 18 113/73 95 09/26/20 06:26 121 H 09/26/20 06:15 36.6 C 99 H 20 116/78 98 09/26/20 06:02 93 H 120/65 97 09/26/20 04:43 95 H 119/84 96 09/26/20 02:03 16 113/58 L 93 09/26/20 01:30 18 120/98 92 09/26/20 00:26 36 C L 124 H 20 174/136 H 97 Pulse Ox 09/26/20 08:00 09/26/20 06:26 09/26/20 06:15 98 09/26/20 06:02 09/26/20 04:43 09/26/20 02:03 09/26/20 01:30 09/26/20 00:26 Laboratory Results 09/26/20 09/26/20 09/26/20 Range/Units 03:37 03:37 02:00 WBC (4.8-10.8) K/uL RBC (4.2-5.4) M/uL Hgb (12.0-16.0) g/dL Hct (37-47) % MCV (80-100) fL MCH (25-34) pg MCHC (32-36) g/dL RDW Std Deviation (36.4-46.3) fL RDW Coeff of Dallin (11.5-14.5) % Plt Count (130-400) K/uL MPV (7.4-10.4) fL Neutrophils % (Manual) % Lymphocytes % (Manual) % Monocytes % (Manual) % Basophils % (Manual) % Neutrophils # (Manual) (1.4-6.5) K/uL Total Absolute Neuts (1.4-6.5) K/uL Lymphocytes # (Manual) (1.2-3.4) K/uL Total Abs Lymphocytes (1.2-3.4) K/uL Monocytes # (Manual) (0.11-0.59) K/uL Basophils # (Manual) (0-0.2) K/uL Large Granular Lymphs % # Lrg Granular Lymphs K/uL RBC Morphology Sodium (136-145) mmol/L Potassium (3.5-5.1) mmol/L Chloride (98-107) mmol/L Carbon Dioxide (21-32) mmol/L Anion Gap (3-11) BUN (7-18) mg/dl Creatinine (0.6-1.2) mg/dl Est Cr Clr Drug Dosing ml/min Est GFR ( Amer) ml/min Est GFR (Non-Af Amer) ml/min BUN/Creatinine Ratio (10-20) Glucose (70-99) mg/dl Calcium (8.5-10.1) mg/dl Magnesium (1.8-2.4) mg/dl Total Bilirubin (0.2-1) mg/dl AST (15-37) U/L ALT (12-78) U/L Alkaline Phosphatase (45-117) U/L Total Creatine Kinase (26-192) U/L Total Protein (6.4-8.2) gm/dl Albumin (3.4-5.0) gm/dl Globulin (2.5-4.0) gm/dl Albumin/Globulin Ratio (0.9-2) TSH (0.300-4.500) uIu/ml Urine Color Urine Appearance (Clear) Urine pH (4.5-7.5) Ur Specific [place] (1.000-1.030) Urine Protein (Negative) Urine Glucose (UA) (Negative) Urine Ketones (Negative) Urine Blood (Negative) Urine Nitrite (Negative) Urine Bilirubin (Negative) Urine Urobilinogen (Negative) Ur Leukocyte Esterase (Negative) Urine WBC (Auto) (0-5) /hpf Urine RBC (Auto) (0-4) /hpf U Hyaline Cast (Auto) (0-5) /lpf U Epithel Cells (Auto) (0-5) /lpf Urine Bacteria (Auto) (Negative) Salicylates (2.8-20) mg/dl Urine Opiates Screen Neg (Neg) Ur Methadone, Qual Neg (Neg) Acetaminophen (10-30) ug/ml Urine Barbiturates Neg (Neg) Ur Phencyclidine (PCP) Neg (Neg) U Amphetamin/Meth Scrn Neg (Neg) MDMA (Ecstasy) Screen Neg (Neg) U Benzodiazepines Scrn Neg (Neg) Ur Cocaine Metabolite Neg (Neg) U Marijuana (THC) Screen Neg (Neg) Ethyl Alcohol mg/dL (0-3) mg/dl COVID-19 Eval Order Covid19 at [facility] SARS-CoV-2 (PCR) NEGATIVE (Negative) 09/26/20 09/26/20 09/26/20 Range/Units 02:00 01:12 01:12 WBC (4.8-10.8) K/uL RBC (4.2-5.4) M/uL Hgb (12.0-16.0) g/dL Hct (37-47) % MCV (80-100) fL MCH (25-34) pg MCHC (32-36) g/dL RDW Std Deviation (36.4-46.3) fL RDW Coeff of Dallin (11.5-14.5) % Plt Count (130-400) K/uL MPV (7.4-10.4) fL Neutrophils % (Manual) % Lymphocytes % (Manual) % Monocytes % (Manual) % Basophils % (Manual) % Neutrophils # (Manual) (1.4-6.5) K/uL Total Absolute Neuts (1.4-6.5) K/uL Lymphocytes # (Manual) (1.2-3.4) K/uL Total Abs Lymphocytes (1.2-3.4) K/uL Monocytes # (Manual) (0.11-0.59) K/uL Basophils # (Manual) (0-0.2) K/uL Large Granular Lymphs % # Lrg Granular Lymphs K/uL RBC Morphology Sodium (136-145) mmol/L Potassium (3.5-5.1) mmol/L Chloride (98-107) mmol/L Carbon Dioxide (21-32) mmol/L Anion Gap (3-11) BUN (7-18) mg/dl Creatinine (0.6-1.2) mg/dl Est Cr Clr Drug Dosing ml/min Est GFR ( Amer) ml/min Est GFR (Non-Af Amer) ml/min BUN/Creatinine Ratio (10-20) Glucose (70-99) mg/dl Calcium (8.5-10.1) mg/dl Magnesium (1.8-2.4) mg/dl Total Bilirubin (0.2-1) mg/dl AST (15-37) U/L ALT (12-78) U/L Alkaline Phosphatase (45-117) U/L Total Creatine Kinase 105 (26-192) U/L Total Protein (6.4-8.2) gm/dl Albumin (3.4-5.0) gm/dl Globulin (2.5-4.0) gm/dl Albumin/Globulin Ratio (0.9-2) TSH (0.300-4.500) uIu/ml Urine Color Yellow Urine Appearance Cloudy A (Clear) Urine pH 5.5 (4.5-7.5) Ur Specific [place] 1.005 (1.000-1.030) Urine Protein Negative (Negative) Urine Glucose (UA) Negative (Negative) Urine Ketones Negative (Negative) Urine Blood 1+ H (Negative) Urine Nitrite Negative (Negative) Urine Bilirubin Negative (Negative) Urine Urobilinogen Negative (Negative) Ur Leukocyte Esterase Negative (Negative) Urine WBC (Auto) 1-5 (0-5) /hpf Urine RBC (Auto) 0-4 (0-4) /hpf U Hyaline Cast (Auto) 1-5 (0-5) /lpf U Epithel Cells (Auto) 10-20 H (0-5) /lpf Urine Bacteria (Auto) Negative (Negative) Salicylates (2.8-20) mg/dl Urine Opiates Screen (Neg) Ur Methadone, Qual (Neg) Acetaminophen (10-30) ug/ml Urine Barbiturates (Neg) Ur Phencyclidine (PCP) (Neg) U Amphetamin/Meth Scrn (Neg) MDMA (Ecstasy) Screen (Neg) U Benzodiazepines Scrn (Neg) Ur Cocaine Metabolite (Neg) U Marijuana (THC) Screen (Neg) Ethyl Alcohol mg/dL 449.0 H (0-3) mg/dl COVID-19 Eval Order SARS-CoV-2 (PCR) (Negative) 09/26/20 09/26/20 09/26/20 Range/Units 01:12 01:12 01:12 WBC 8.80 (4.8-10.8) K/uL RBC 4.68 (4.2-5.4) M/uL Hgb 14.8 (12.0-16.0) g/dL Hct 42.4 (37-47) % MCV 90.6 (80-100) fL MCH 31.6 (25-34) pg MCHC 34.9 (32-36) g/dL RDW Std Deviation 46.5 H (36.4-46.3) fL RDW Coeff of Dallin 14.2 (11.5-14.5) % Plt Count 295 (130-400) K/uL MPV 10.1 (7.4-10.4) fL Neutrophils % (Manual) 43.8 % Lymphocytes % (Manual) 30.7 % Monocytes % (Manual) 4.4 % Basophils % (Manual) 1.8 % Neutrophils # (Manual) 3.85 (1.4-6.5) K/uL Total Absolute Neuts 3.85 (1.4-6.5) K/uL Lymphocytes # (Manual) 2.70 (1.2-3.4) K/uL Total Abs Lymphocytes 4.40 H (1.2-3.4) K/uL Monocytes # (Manual) 0.39 (0.11-0.59) K/uL Basophils # (Manual) 0.16 (0-0.2) K/uL Large Granular Lymphs 19.3 % # Lrg Granular Lymphs 1.70 K/uL RBC Morphology Unremarkable Sodium 138 (136-145) mmol/L Potassium 3.5 (3.5-5.1) mmol/L Chloride 104 (98-107) mmol/L Carbon Dioxide 22 (21-32) mmol/L Anion Gap 12.0 H (3-11) BUN 10 (7-18) mg/dl Creatinine 0.80 (0.6-1.2) mg/dl Est Cr Clr Drug Dosing 124.5 ml/min Est GFR ( Amer) 109.9 ml/min Est GFR (Non-Af Amer) 94.9 ml/min BUN/Creatinine Ratio 13.0 (10-20) Glucose 96 (70-99) mg/dl Calcium 8.5 (8.5-10.1) mg/dl Magnesium 2.1 (1.8-2.4) mg/dl Total Bilirubin 0.7 (0.2-1) mg/dl AST 96 H (15-37) U/L ALT 93 H (12-78) U/L Alkaline Phosphatase 82 (45-117) U/L Total Creatine Kinase (26-192) U/L Total Protein 7.8 (6.4-8.2) gm/dl Albumin 4.1 (3.4-5.0) gm/dl Globulin 3.7 (2.5-4.0) gm/dl Albumin/Globulin Ratio 1.1 (0.9-2) TSH 2.390 (0.300-4.500) uIu/ml Urine Color Urine Appearance (Clear) Urine pH (4.5-7.5) Ur Specific [place] (1.000-1.030) Urine Protein (Negative) Urine Glucose (UA) (Negative) Urine Ketones (Negative) Urine Blood (Negative) Urine Nitrite (Negative) Urine Bilirubin (Negative) Urine Urobilinogen (Negative) Ur Leukocyte Esterase (Negative) Urine WBC (Auto) (0-5) /hpf Urine RBC (Auto) (0-4) /hpf U Hyaline Cast (Auto) (0-5) /lpf U Epithel Cells (Auto) (0-5) /lpf Urine Bacteria (Auto) (Negative) Salicylates < 1.7 L (2.8-20) mg/dl Urine Opiates Screen (Neg) Ur Methadone, Qual (Neg) Acetaminophen < 2 L (10-30) ug/ml Urine Barbiturates (Neg) Ur Phencyclidine (PCP) (Neg) U Amphetamin/Meth Scrn (Neg) MDMA (Ecstasy) Screen (Neg) U Benzodiazepines Scrn (Neg) Ur Cocaine Metabolite (Neg) U Marijuana (THC) Screen (Neg) Ethyl Alcohol mg/dL (0-3) mg/dl COVID-19 Eval Order SARS-CoV-2 (PCR) (Negative) PG Care Time/CCT Total # of Minutes Spent Total Time Spent with Patient: Total time spent is greater than 50% in coordination of care (as documented) at patient's floor/unit and/or counseling patient: Coding Level of Care Code 22895 Subseq Hosp Care Lvl 3 Diagnoses Alcohol withdrawal F10.239 Complication of substance-induced condition: with unspecified complication Alcohol dependence F10.220 Complication of substance-induced condition: uncomplicated Substance use status: with intoxication Anxiety with depression F41.8 PTSD (post-traumatic stress disorder) F43.10 Hepatic steatosis K76.0 (1) Alcohol dependence Complication of substance-induced condition: uncomplicated Substance use status: with intoxication Qualified Code(s): F10.220 - Alcohol dependence with intoxication, uncomplicated (2) Alcohol withdrawal Complication of substance-induced condition: with unspecified complication Qualified Code(s): F10.239 - Alcohol dependence with withdrawal, unspecified
[2020-09-26] MEDS ORDERED: PROMETHAZINE HCL 12.5 MG in SODIUM CHLORIDE 0.9% 50 ML IV PRN (10:44)
[2020-09-26] MEDS ORDERED: chlordiazePOXIDE ALCOHOL WITHDRAWL 25MG PO STA (10:55)
[2020-09-26 11:12] LABS: Pregnancy Test, Urine Negative (Negative)
[2020-09-26] MEDS: chlordiazePOXIDE HCl 25 MG CAP PO SCH ×3 (11:26→23:29)
[2020-09-26] MEDS: PANTOprazole 40 MG TAB PO SCH (11:49)
[2020-09-26 12:03] LABS: BUN Creatinine Ratio 12.1 (10-20); Blood Urea Nitrogen 10 mg/dl (7-18); Calcium 8.3 mg/dl (8.5-10.1); Carbon Dioxide 19 mmol/L (21-32); Chloride 106 mmol/L (98-107); Creatinine Clr Calc Pharmacy 124.5 ml/min; Est GFR (African American) 108.3 ml/min; Est GFR (Non-African American) 93.4 ml/min; Glucose 75 mg/dl (70-99); Potassium 3.8 mmol/L (3.5-5.1); Sodium 137 mmol/L (136-145)
[2020-09-26 12:07] LABS: Troponin I < 0.015 ng/ml (0-0.045)
[2020-09-26] MEDS ORDERED: SODIUM BICARBONATE 4.2% INJ 10 ML SYR IV STA (14:04)
[2020-09-26] MEDS: LORazepam 1 MG/2 ML VIAL IV PRN ×2 (16:28→23:29)
[2020-09-26] MEDS ORDERED: CALCIUM GLUCONATE 10% 1,000 MG in SODIUM CHLORIDE 0.9% 50 ML IV ONE (19:00)
[2020-09-26 19:30] LABS: Albumin Globulin Ratio 1.1 (0.9-2); Albumin Level 3.7 gm/dl (3.4-5.0); BUN Creatinine Ratio 12.4 (10-20); Calcium 8.1 mg/dl (8.5-10.1); Creatinine Clr Calc Pharmacy 140.1 ml/min; Est GFR (African American) 124.9 ml/min; Est GFR (Non-African American) 107.7 ml/min; Globulin 3.3 gm/dl (2.5-4.0)
[2020-09-26] MEDS ORDERED: SODIUM BICARBONATE 8.4% INJ 50 MEQ/50 ML VIAL IV ONE (19:37)
[2020-09-26] MEDS ORDERED: CALCIUM GLUCONATE 10% 2,000 MG in SODIUM CHLORIDE 0.9% 50 ML IV ONE (19:45)
[2020-09-26 19:51] LABS: Bilirubin,Total 1.2 mg/dl (0.2-1); Potassium 4.7 mmol/L (3.5-5.1)
[2020-09-26] MEDS ORDERED: SODIUM BICARBONATE IV ONE (20:30)
[2020-09-26] MEDS ORDERED: DEXTROSE 5% IV ONE (20:30)
[2020-09-26] MEDS: SODIUM BICARBONATE 8.4% 75 MEQ in D5W AND 1/2NSS 1,000 ML IV SCH (20:44)
[2020-09-26] MEDS ORDERED: QUEtiapine FUMARATE 200 MG TAB PO SCH (21:00)
[2020-09-26] MEDS ORDERED: PRAZOSIN HCL 1 MG CAP PO SCH (21:00)
[2020-09-27 00:02] LABS: BUN Creatinine Ratio 11.5 (10-20); Creatinine Clr Calc Pharmacy 124.5 ml/min; Est GFR (African American) 108.3 ml/min; Est GFR (Non-African American) 93.4 ml/min; Potassium 4.2 mmol/L (3.5-5.1)
[2020-09-27] MEDS ORDERED: IBUPROFEN 600 MG TAB PO PRN (01:16)
[2020-09-27] MEDS: chlordiazePOXIDE HCl 25 MG CAP PO SCH (05:32)
--- NOTE | 2020-09-27 06:49 | Ultrasound Report ---
US gallbladder CLINICAL HISTORY: Abdominal pain. Nausea and vomiting. COMPARISON STUDY: CT of the abdomen and pelvis August 27, 2020. FINDINGS: Hepatic echogenicity is increased. There are no hepatic lesions. There is no biliary ductal dilatation. No gallstones are noted. There is a small amount of sludge within the gallbladder. There is no gallbladder wall thickening. The gallbladder is mildly distended. Sonographic Lezama sign coul d not be assessed for in this patient. Pancreas is obscured. There is no right hydronephrosis. IMPRESSION: 1. Hepatic steatosis. 2. No gallstones or biliary ductal dilatation. 3. Small amount of sludge within the gallbladder. Mild gallbladder distention. No gallbladder wall th ickening. 4. Obscured pancreas. ACT 112: Negative or not required by law. Electronically signed by: Hung Stubbs M.D. 09/27/2020 6:48 AM
[2020-09-27 07:30] LABS: Albumin Level 3.3 gm/dl (3.4-5.0); BUN Creatinine Ratio 10.1 (10-20); Calcium 8.5 mg/dl (8.5-10.1); Creatinine Clr Calc Pharmacy 139.5 ml/min; Est GFR (African American) 124.9 ml/min; Est GFR (Non-African American) 107.7 ml/min; Potassium 3.3 mmol/L (3.5-5.1)
[2020-09-27 07:46] LABS: Albumin Globulin Ratio 1.1 (0.9-2); Bilirubin,Total 1.5 mg/dl (0.2-1); Total Protein 6.3 gm/dl (6.4-8.2)
[2020-09-27 07:50] LABS: Basophils # (auto) 0.02 K/uL (0-0.2); Basophils % (auto) 0.4 %; Eosinophils # (auto) 0.06 K/uL (0-0.5); Eosinophils % (auto) 1.3 %; Hematocrit (blood only) 32.7 % (37-47); Hemoglobin 11.2 g/dL (12.0-16.0); Lymphocytes # (auto) 1.95 K/uL (1.2-3.4); Lymphocytes % (auto) 42.9 %; Mean Corpuscular Hemoglobin 31.7 pg (25-34); Mean Corpuscular Hgb Conc 34.3 g/dL (32-36); Mean Corpuscular Volume 92.6 fL (80-100); Mean Platelet Volume 10.7 fL (7.4-10.4); Monocytes % (auto) 6.6 %; Neutrophils # (auto) 2.22 K/uL (1.4-6.5); Neutrophils % (auto) 48.8 %; Platelet Count 158 K/uL (130-400); RDW Coefficient of Variation 14.6 % (11.5-14.5); RDW Standard Deviation 48.6 fL (36.4-46.3); Red Blood Count 3.53 M/uL (4.2-5.4); White Blood Count 4.55 K/uL (4.8-10.8)
[2020-09-27] MEDS ORDERED: POTASSIUM CHLORIDE CRTAB 20 MEQ TABCR PO STA (07:58)
[2020-09-27] MEDS: hydrOXYzine HCl 25 MG TAB PO SCH (08:12)
[2020-09-27] MEDS: THIAMINE HCL 100 MG TAB PO SCH (08:13)
[2020-09-27] MEDS: DULoxetine HCL 60 MG CAP PO SCH (08:13)
[2020-09-27] MEDS: METOPROLOL SUCC 25MG EXT REL TAB PO SCH (08:13)
[2020-09-27] MEDS: LINACLOTIDE 145 MCG CAPSULE PO SCH (08:13)
[2020-09-27] MEDS: PANTOprazole 40 MG TAB PO SCH (08:14)
[2020-09-27] MEDS: GABAPENTIN 300 MG CAP PO SCH (08:14)
[2020-09-27] MEDS: MULTIVITAMIN TAB PO SCH (08:14)
[2020-09-27] MEDS: FOLIC ACID 1 MG TAB PO SCH (08:15)
[2020-09-27] MEDS: ENOXAPARIN INJ 40 MG/0.4 ML SYR SQ SCH (08:16)
[2020-09-27] MEDS: SODIUM BICARBONATE 8.4% 75 MEQ in D5W AND 1/2NSS 1,000 ML IV SCH (08:59)
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
[2020-09-29] MEDS ORDERED: chlordiazePOXIDE HCl 5 MG CAP PO SCH ×3 (12:00→18:00)
== END 2020-09-27 12:31 | disposition home or self-care (01) ==
LOC: ED 00:16 → INTOOBSV 03:37 → SUATTDRO 03:37 → 2W 03:37

== ENCOUNTER 2021-05-19 15:48 | Observation (INO) ==
[2021-05-19] MEDS ORDERED: chlordiazePOXIDE HCl 25 MG CAP PO ONE ×2 (16:09→17:49)
[2021-05-19] MEDS ORDERED: LORazepam 1 MG/2 ML VIAL IV STA ×3 (16:09→19:05)
[2021-05-19] MEDS ORDERED: MULTI-VITAMIN INFUSION 10 ML, THIAMINE HCL 100 MG, FOLIC ACID 1 MG in SODIUM CHLORIDE 0... IV ONE (16:09)
--- NOTE | 2021-05-19 16:14 | Emergency Department Note ---
Impression & Plan Alcohol withdrawal, Alcohol abuse, Tachycardia ED Provider Note NAME: PHILLIP AMARO AGE: 35 SEX: F : 1985 ARRIVES VIA: Walk-In INFORMANT: [Patient][boyfriend] ED PROVIDER(S): [Todd Moyer MD] CHIEF COMPLAINT: Alcohol withdrawal/intoxication HISTORY OF PRESENT ILLNESS: The patient is a 35-year-old female with a history of alcohol abuse. The patient was in our hospital last fall for alcohol withdrawal and went to rehab. She had been clean up until about 5 days ago when she began drinking alcohol. She drinks about a pint of hard liquor a day. Her last drink was early this morning. She is here in the ER because she wants to get off of alcohol and she is concerned that she is again going to go into withdrawal. She feels a bit agitated and on edge like she should have a drink of alcohol. There has been no vomiting. No trauma. No cough or cold or congestion. No shortness of breath. The patient is not suicidal or homicidal. She believes that she went back to drinking alcohol because of the stress of a recent miscarriage. The patient does attend [facility] on a weekly basis, she did miss this past week though. REVIEW OF SYSTEMS: See HPI for pertinent positives and negatives. A total of ten systems were reviewed and were otherwise negative. PMHx/PSHx: See Below SOCIAL HISTORY: See Below. PHYSICAL EXAM: GENERAL: Patient is in no acute distress. HEENT: No acute trauma, normocephalic atraumatic, mucous membranes moist, no n sun congestion, no scleral icterus. NECK: No stridor, no adenopathy, no meningismus, trachea is midline. LUNGS: Clear to auscultation bilaterally, no wheeze, no rhonchi, breath sounds equal. HEART: Mildly tachycardic, regular rhythm, no murmurs. ABDOMEN: Soft, nontender, bowel sounds positive, no hernias, no peritonitis. EXTREMITIES: No cyanosis or edema, full range of motion of all the joints wi thout pain or difficulty, no signs for acute trauma. NEUROLOGIC: Oriented x 3, no acute motor or sensory deficits, no focal weakness. A slight speech slur is noted. SKIN: No rash, no jaundice, no diaphoresis. DIFFERENTIAL DIAGNOSIS: Alcohol abuse, alcohol withdrawal, alcohol intoxication, electrolyte imbalance, anemia, drug abuse, dehydration, depression, anxiety, suicidality, among others. EMERGENCY DEPARTMENT COURSE/PROCEDURES: ECG: Indication was tachycardia and withdrawal. The ECG shows a normal sinus rhythm with a rate of 97. There are some inverted T waves seen in the anterior and lateral leads. No ST elevation. No PVCs. The QTc is 436. Compared an ECG from 27 Aug 2020, the rate has decreased. Continuous Cardiac Monitoring: An order was placed for continuous cardiac monitoring. The monitor shows a rate of 116 with sinus tachycardia. Critical Care Note: I have personally spent 41 minutes of critical care time in the direct management of this patient. This includes bedside care, interpretation of diagnostic studies, and testing, discussion with consultants, patient, and family members, and other required patient management activities. This 41 minutes is in excess of all separately billable procedures. MEDICAL DECISION MAKING: There is no leukocytosis or concerning anemia. There is a normal platelet count. No significant electrolyte abnormality or kidney failure. No concerning liver enzyme elevation. The patient is not by our testing. Urinalysis and urine tox are currently pending. Aspirin, Tylenol levels are undetectable. Alcohol level is high at about 340. Covid testing is negative. The patient presents with feelings of alcohol withdrawal. She has been through this process before. Her last alcoholic drink had been early this a.m. The patient was given IV saline, 500 cc. She was ordered for IV saline with multivitamins, thiamine and folate. She was given a dose of IV Ativan, a second dose of IV Ativan was ordered. She was ordered for oral Librium, a second dose of oral Librium was ordered. The patient is still feeling like she is going through withdrawal. She has a high alcohol level. I am concerned that she will worsen quite a bit as her alcohol clears. Hospitalization is warranted. I spoke with the patient and onsite case manager. The on-call hospitalist was consulted. Past Med/Surg History Medical History Alcohol abuse Alcohol intoxication Anxiety with depression Hepatic steatosis No pertinent family history PTSD (post-traumatic stress disorder) Surgical History Previous section Social History Smoking Status: Never smoker Second Hand Exposure: No; Hx Alcohol Use: Yes Alcohol type: hard liquor Hx Substance Use: No Preferred Language: Chinese Communication Ability: Effective Epic Beacon Analyst Required: No Beliefs That Will Affect Care: None marital status: Current Living Situation: Parent and Family How many Children do You have: 1 Feels Safe at Home: Yes Assistive Devices: None Allergies Allergies Allergy/AdvReac Type Severity Reaction Status Date / Time No Known Allergies Allergy Verified 05/19/21 16:07 Home Meds Home Medications Medication Instructions Recorded Confirmed gabapentin 300 mg capsule 300 mg PO TID 05/27/18 05/19/21 hydroxyzine pamoate 50 mg capsule 50 mg PO TID 05/27/18 05/19/21 (Vistaril) multivitamin 1 tab PO QAM 05/27/18 05/19/21 linaclotide 145 mcg capsule 145 mcg PO DAILY 07/10/20 05/19/21 (Linzess) duloxetine 60 mg capsule,delayed 60 mg PO DAILY 08/27/20 05/19/21 release doxepin 100 mg capsule 100 mg PO HS 05/19/21 05/19/21 Previous Rx's Medication Instructions Recorded lorazepam 1 mg tablet (Ativan) 1 mg PO Q12H PRN #6 tab 12/04/20 Results & Data (ED) Vital Signs Vital Signs - 24 hr 05/19/21 15:52 05/19/21 16:34 05/19/21 17:00 Temperature 36.7 C Temperature Source Temporal Artery Scan Pulse Rate 116 H 98 H Pulse Rate [Apical] 99 H Pulse Rate from SpO2 Sensor 98 H Pulse Rhythm Regular Pulse Strength Normal Respiratory Rate 20 16 13 Respiratory Effort / Characteristics Non-Labored Spontaneous Respiratory Depth Normal Respiratory Pattern Regular Blood Pressure 149/98 H Blood Pressure [Right Arm] 137/98 Blood Pressure Mean 115 Blood Pressure Mean [Right Arm] 111 Blood Pressure Position Sitting Pulse Oximetry 97 97 98 Oxygen Delivery Method Room Air Room Air Room Air Sepsis Recent Fever Within 48 Hours No Sepsis New/Unexplained Change in Mental Status N/A Sepsis Action Taken by Nursing No Action Required 05/19/21 17:13 05/19/21 17:42 Temperature 37.3 C Temperature Source Oral Pulse Rate 94 H Pulse Rate [Apical] 102 H Pulse Rate from SpO2 Sensor 94 H Pulse Rhythm Pulse Strength Respiratory Rate 18 18 Respiratory Effort / Characteristics Respiratory Depth Respiratory Pattern Blood Pressure 133/91 Blood Pressure [Right Arm] 129/85 Blood Pressure Mean 105 Blood Pressure Mean [Right Arm] 99 Blood Pressure Position Pulse Oximetry 98 97 Oxygen Delivery Method Room Air Room Air Sepsis Recent Fever Within 48 Hours Sepsis New/Unexplained Change in Mental Status Sepsis Action Taken by Skilled Nursing Medications Current Medication List: was personally reviewed by me Laboratory Data Attestation: I reviewed the patient's lab results. Result diagrams: 05/19/21 16:35 05/19/21 16:35 Lab Results 05/19/21 05/19/21 05/19/21 Range/Units 16:35 16:35 16:35 WBC 9.94 (4.8-10.8) K/uL RBC 4.64 (4.2-5.4) M/uL Hgb 14.1 (12.0-16.0) g/dL Hct 40.9 (37-47) % MCV 88.1 (80-100) fL MCH 30.4 (25-34) pg MCHC 34.5 (32-36) g/dL RDW Std Deviation 42.8 (36.4-46.3) fL RDW Coeff of Dallin 13.2 (11.5-14.5) % Plt Count 331 (130-400) K/uL MPV 9.7 (7.4-10.4) fL Immature Gran % (Auto) 0.1 % Neut % (Auto) 50.5 % Lymph % (Auto) 42.4 % [place] % (Auto) 6.5 % Eos % (Auto) 0.2 % Baso % (Auto) 0.3 % Neut # (Auto) 5.02 (1.4-6.5) K/uL Lymph # (Auto) 4.21 H (1.2-3.4) K/uL [place] # (Auto) 0.65 H (0.11-0.59) K/uL Eos # (Auto) 0.02 (0-0.5) K/uL Baso # (Auto) 0.03 (0-0.2) K/uL Immature Gran # (Auto) 0.01 (0.00-0.02) K/uL Sodium 141 (136-145) mmol/L Potassium 3.6 (3.5-5.1) mmol/L Chloride 102 (98-107) mmol/L Carbon Dioxide 26 (21-32) mmol/L Anion Gap 13 H (3-11) BUN 10 (6-23) mg/dl Creatinine 0.79 (0.6-1.2) mg/dl Est Cr Clr Drug Dosing 113.6 ml/min Est GFR ( Amer) 111.6 ml/min Est GFR (Non-Af Amer) 96.3 ml/min BUN/Creatinine Ratio 12.7 (10-20) Glucose 126 H (70-99(Fasting)) mg/dl Calcium 9.0 (8.5-10.1) mg/dl Magnesium 1.8 (1.7-2.4) mg/dl Total Bilirubin 0.3 (0.2-1.0) mg/dl AST 25 (13-39) U/L ALT 13 (7-52) U/L Alkaline Phosphatase 59 (34-104) U/L Total Protein 7.0 (6.0-8.3) gm/dl Albumin 4.3 (3.4-5.0) gm/dl Globulin 2.7 (2.5-4.0) gm/dl Albumin/Globulin Ratio 1.6 (0.9-2) HCG, Qual Negative (Negative) Salicylates (3.0-30) mg/dl Acetaminophen (10-30) ug/ml Ethyl Alcohol mg/dL (<10.0) mg/dl SARS-CoV-2, RNA, NAAT (NEGATIVE) 05/19/21 05/19/21 05/19/21 Range/Units 16:35 16:35 16:38 WBC (4.8-10.8) K/uL RBC (4.2-5.4) M/uL Hgb (12.0-16.0) g/dL Hct (37-47) % MCV (80-100) fL MCH (25-34) pg MCHC (32-36) g/dL RDW Std Deviation (36.4-46.3) fL RDW Coeff of Dallin (11.5-14.5) % Plt Count (130-400) K/uL MPV (7.4-10.4) fL Immature Gran % (Auto) % Neut % (Auto) % Lymph % (Auto) % [place] % (Auto) % Eos % (Auto) % Baso % (Auto) % Neut # (Auto) (1.4-6.5) K/uL Lymph # (Auto) (1.2-3.4) K/uL [place] # (Auto) (0.11-0.59) K/uL Eos # (Auto) (0-0.5) K/uL Baso # (Auto) (0-0.2) K/uL Immature Gran # (Auto) (0.00-0.02) K/uL Sodium (136-145) mmol/L Potassium (3.5-5.1) mmol/L Chloride (98-107) mmol/L Carbon Dioxide (21-32) mmol/L Anion Gap (3-11) BUN (6-23) mg/dl Creatinine (0.6-1.2) mg/dl Est Cr Clr Drug Dosing ml/min Est GFR ( Amer) ml/min Est GFR (Non-Af Amer) ml/min BUN/Creatinine Ratio (10-20) Glucose (70-99(Fasting)) mg/dl Calcium (8.5-10.1) mg/dl Magnesium (1.7-2.4) mg/dl Total Bilirubin (0.2-1.0) mg/dl AST (13-39) U/L ALT (7-52) U/L Alkaline Phosphatase (34-104) U/L Total Protein (6.0-8.3) gm/dl Albumin (3.4-5.0) gm/dl Globulin (2.5-4.0) gm/dl Albumin/Globulin Ratio (0.9-2) HCG, Qual (Negative) Salicylates < 3.0 L (3.0-30) mg/dl Acetaminophen < 3 L (10-30) ug/ml Ethyl Alcohol mg/dL 349.3 H (<10.0) mg/dl SARS-CoV-2, RNA, NAAT NEGATIVE (NEGATIVE) Administered Medications Discontinued Medications Chlordiazepoxide HCl (Chlordiazepoxide Hcl 25 Mg Cap) 25 mg PO NOW ONE Stop: 05/19/21 16:10 Last Admin: 05/19/21 16:42 Dose: 25 mg Documented by: [id number] Sodium Chloride (Nss) 500 mls @ 999 mls/hr IV .Q31M JOSE F Stop: 05/19/21 16:45 Last Infusion: 05/19/21 17:09 Dose: 0 mls/hr Documented by: [id number] Admin: 05/19/21 16:38 Dose: 999 mls/hr Documented by: [id number] Multivitamins 10 ml/ Thiamine HCl 100 mg/ Folic Acid 1 mg/Sodium Chloride 1,011.2 mls @ 1,011.2 mls/hr IV .Q1H ONE Stop: 05/19/21 17:08 Last Admin: 05/19/21 17:43 Dose: 1,011.2 mls/hr Documented by: [id number] Lorazepam (Ativan) 1 mg in 2 mls @ 2 mls/min IV NOW STA Stop: 05/19/21 16:10 Last Admin: 05/19/21 16:39 Dose: 2 mls/min Documented by: [id number] Discharge Plan Visit Data Chief Complaint: Alcohol Withdrawal Stated Complaint: ALCOHOL WITHDRAWL ED Provider: Todd Moyer Discharge Problem: Alcohol withdrawal, Alcohol abuse, Tachycardia Patient Disposition: Admitted As Inpatient Condition: Fair Forms Stand Alone Forms: [facility], Suicide Prevention Resources Prescriptions Prescriptions: No Action multivitamin Tablet 1 tab PO QAM RF: 0 hydroxyzine pamoate [Vistaril] 50 mg Capsule 50 mg PO TID RF: 0 gabapentin 300 mg capsule 300 mg PO TID RF: 0 Linzess 145 mcg capsule 145 mcg PO DAILY RF: 0 duloxetine 60 mg capsule,delayed release(DR/EC) 60 mg PO DAILY RF: 0 lorazepam [Ativan] 1 mg tablet 1 mg PO Q12H PRN (Reason: anxiety) Qty: 6 RF: 0 doxepin 100 mg capsule 100 mg PO HS RF: 0 Referrals Referrals: Kris Cheung M.D. [Primary Care Provider] -
[2021-05-19] MEDS ORDERED: SODIUM CHLORIDE 0.9% 500 ML IV SCH (16:15)
[2021-05-19 16:53] LABS: Basophils # (auto) 0.03 K/uL (0-0.2); Basophils % (auto) 0.3 %; Eosinophils # (auto) 0.02 K/uL (0-0.5); Eosinophils % (auto) 0.2 %; Hematocrit (blood only) 40.9 % (37-47); Hemoglobin 14.1 g/dL (12.0-16.0); Immature Granulocytes # (auto) 0.01 K/uL (0.00-0.02); Immature Granulocytes % (auto) 0.1 %; Lymphocytes # (auto) 4.21 K/uL (1.2-3.4); Lymphocytes % (auto) 42.4 %; Mean Corpuscular Hemoglobin 30.4 pg (25-34); Mean Corpuscular Hgb Conc 34.5 g/dL (32-36); Mean Corpuscular Volume 88.1 fL (80-100); Mean Platelet Volume 9.7 fL (7.4-10.4); Monocytes # (auto) 0.65 K/uL (0.11-0.59); Monocytes % (auto) 6.5 %; Neutrophils # (auto) 5.02 K/uL (1.4-6.5); Neutrophils % (auto) 50.5 %; Platelet Count 331 K/uL (130-400); RDW Coefficient of Variation 13.2 % (11.5-14.5); RDW Standard Deviation 42.8 fL (36.4-46.3); Red Blood Count 4.64 M/uL (4.2-5.4); White Blood Count 9.94 K/uL (4.8-10.8)
[2021-05-19 17:11] LABS: Albumin Globulin Ratio 1.6 (0.9-2); Albumin Level 4.3 gm/dl (3.4-5.0); BUN Creatinine Ratio 12.7 (10-20); Bilirubin,Total 0.3 mg/dl (0.2-1.0); Creatinine Clr Calc Pharmacy 113.6 ml/min; Est GFR (African American) 111.6 ml/min; Est GFR (Non-African American) 96.3 ml/min; Globulin 2.7 gm/dl (2.5-4.0); Magnesium 1.8 mg/dl (1.7-2.4); Potassium 3.6 mmol/L (3.5-5.1)
[2021-05-19 17:12] LABS: Acetaminophen < 3 ug/ml (10-30); Salicylate < 3.0 mg/dl (3.0-30)
[2021-05-19 17:35] LABS: Pregnancy Test, Serum Negative (Negative)
[2021-05-19] MEDS ORDERED: chlordiazePOXIDE ALCOHOL WITHDRAWL 25MG PO STA (18:45)
--- NOTE | 2021-05-19 18:47 | History & Physical Report ---
Date of Service May 19, 2021 Assessment & Plan (1) Alcohol abuse: Plan: - Appears to have acute intoxication with ETOH of 349 on admission. However answers appropriately to questions and understands her current situation - She was admitted in July and August 2020 with alcohol withdrawal request however required ICU admissions due to alcoholic ketoacidosis. Thankfully she is not to that severity however anion gap is at 13 so by definition there is a level of acidosis present. However vital signs stable and no signs of hypoxia. -- If she should become obtunded or hypoxic recommend ABG and can start bicarb gtt. However will hold at this time and repeat labs in AM - Had banana bag in ED. Continue gentle hydration with IVFs - Thiamine 100 mg IV daily and Folic Acid daily - AWSS protocol with Librium taper - can hold dosing for sedation; can continue home Ativan PRN/Vistaril JOSE F but monitor for oversedation (2) Tachycardia: Plan: - Suspect in the setting of anxiety/withdrawal - IMPROVING - Monitor on telemetry (3) Anxiety with depression: Plan: - Acutely exacerbated in the setting of recent miscarriage - Continue home Doxepin 100 mg HS, Duloxetine 60 mg daily, Gabapentin 300 mg TID, Vistaril TID, and Ativan PRN -- monitor for sedation (4) Miscarriage: Plan: - Reports miscarriage at the end of March. Did not see OB as the first available appointment was mid-May and miscarried prior to that date - Reports her PCP was monitoring her HCG levels and they have trended down; she has tested negative for on admission labs - She reports she is no longer having vaginal bleeding; Hgb is non-anemic - May be beneficial to supply resources for support groups for miscarriage (5) Hepatic steatosis: Plan: - Noted on previous CT and U/S -- likely secondary to ETOH intake - LFTs are WNL; no abdominal pain; no jaundice Plan: Follow Librium taper and monitor for severe withdrawal symptoms. Patient normally stays 1-2 days in-house. Appears to have left last admission before receiving her discharge instructions. Patient understands the gravity of her current situation and understands risks of continue ETOH usage to the degree she consumes. Her ETOH level is elevated however is in the right state of mind. Should she want to leave prior to official discharge, if she is sober and assessed to be understanding risk/benefits she would be allowed to leave. However, had a long conversation with her and she currently would like to get back on track. Reports good support with her bf at bedside. She does allow to update him as needed. Edin Carbone -- [phone] History of Present Illness Chief Complaint: Alcohol Withdrawal Request Primary Care Provider: Kris Cheung Ms. Ybarra is a very pleasant 35 y/o female with PMHx of Anxi ety/Depression/PTSD who presents to the ED requesting assistance with ETOH withdrawal. Patient was admitted in July and August of 2020 related to the same and once went to a rehab and the next time returned home with community support. She reports sobriety x 4 months and feels her weekly D&A meetings are beneficial. She feels she has a good support system and appropriate resources. However, she reports relapse starting on 05/15 where she has been drinking about a pint of hard liquor a day. Last drink was this AM and ETOH level was 349.3 on admission. She does appear to be still intoxicated vs effects of medications given. She reports she has been doing well in regards to her drinking however reports increase stress related to a miscarriage at the end of March. She reports she has not seen OB as the earliest for an appointment was mid-May. However she was having HCG levels drawn by her PCP. She reports she then started bleeding around the end of March and her HCG levels have been dropping. She is no longer having vaginal bleeding. She has tested negative for on admission labs. She reports no nausea/vomiting, abdominal pain, CP, SOB. On previous admissions she has come in with alcoholic ketoacidosis with an elevated anion gap. On labs in the ED, her anion gap is 13. Electrolytes and CBC unremarkable. LFTs negative. TSH WNL. She was tachycardic on admission and this is improving. She denies H/O DTs or withdrawal seizures. She was treated with a banana bag and Librium/Ativan in the ED. Allergies Allergy/AdvReac Type Severity Reaction Status Date / Time No Known Allergies Allergy Verified 05/19/21 16:07 Home Medications Medication Instructions Recorded Confirmed Type gabapentin 300 mg capsule 300 mg PO TID 05/27/18 05/19/21 History hydroxyzine pamoate 50 mg capsule 50 mg PO TID 05/27/18 05/19/21 History (Vistaril) multivitamin 1 tab PO QAM 05/27/18 05/19/21 History linaclotide 145 mcg capsule 145 mcg PO DAILY 07/10/20 05/19/21 History (Linzess) duloxetine 60 mg capsule,delayed 60 mg PO DAILY 08/27/20 05/19/21 History release lorazepam 1 mg tablet (Ativan) 1 mg PO Q12H PRN #6 tab 12/04/20 05/19/21 Rx doxepin 100 mg capsule 100 mg PO HS 05/19/21 05/19/21 History Past Med/Surg History Medical History Alcohol abuse Alcohol intoxication Anxiety with depression Hepatic steatosis No pertinent family history PTSD (post-traumatic stress disorder) Surgical History Previous section Social History Smoking Status: Never smoker Second Hand Exposure: No; Hx Alcohol Use: Yes Alcohol type: hard liquor Hx Substance Use: No Preferred Language: Gibraltarian Communication Ability: Effective Water Control Supervisor Required: No Beliefs That Will Affect Care: None marital status: Current Living Situation: Spouse How many Children do You have: 1 Other Information That Helps Us Care for You: No Feels Safe at Home: Yes Safety Concerns: Feels Safe At This Time Assistive Devices: None Review of Systems Review of Systems: All systems reviewed & are unremarkable except as noted in HPI & below Physical Exam Physical Exam: PHYSICAL EXAM General Appearance: WDWN in NAD who is A&O x 3; however drowsy but follows commands and answers questions appropriately HEENT: Head is normocephalic/atraumatic; Hearing grossly intact; Mucous membranes moist Neck: Supple; Trachea midline; Neg JVD Heart: regular rhythm, slightly tachy with no M/G/R Lungs: CTA in all lung falcon bilaterally; Respirations unlabored; Neg accessory muscle use Abdomen: Soft, non-tender, non-distended; Positive BS x 4 quadrants Extremities: Neg cyanosis or edema Neurological: Speech clear; Gross motor/sensory function intact; Neg focal neurologic deficits Psychiatric: Appropriate mood/affect Skin: Normal Color; Warm/Dry Results & Data Results & Data (MN) Vital Signs (Past 12 Hours) Vital Signs Temp Pulse Pulse Resp BP BP Pulse Ox 05/19/21 18:00 99 H 19 126/89 96 05/19/21 17:42 37.3 C 102 H 18 129/85 97 05/19/21 17:13 94 H 18 133/91 98 05/19/21 17:00 98 H 13 98 05/19/21 16:34 99 H 16 137/98 97 05/19/21 15:52 36.7 C 116 H 20 149/98 H 97 Code Status & VTE Plan Code Status Full Code VTE Prophylaxis Plan VTE Prophylaxis will be ordered: Yes Supervising Physician Co-Signing Physician Notes During face to face encounter, obtained history and physical examination. Patient appears calm, sitting up in no acute distress having dinner. I reviewed plan of care with APC Ahmet and patient. I reviewed above document and agree with it. Patient ill be admitted FOR ALCOHOL WITHDRAWAL, will place on benzos. will monitor AWSS. PG Care Time/CCT Total # of Minutes Spent Total Time Spent with Patient: Total time spent is greater than 50% in coordination of care (as documented) at patient's floor/unit and/or counseling patient: Coding Level of Care Code 74221 Initial Inpt Care Lvl 3 Diagnoses Alcohol abuse F10.10 Tachycardia R00.0 Anxiety with depression F41.8 Miscarriage O03.9 Hepatic steatosis K76.0
[2021-05-19] MEDS ORDERED: ALUMINUM/MAGNESIUM SUSP 30 ML UDC PO PRN (20:14)
[2021-05-19] MEDS ORDERED: ACETAMINOPHEN 325 MG TAB PO PRN (20:14)
[2021-05-19] MEDS ORDERED: ONDANSETRON INJ 2 MG/ML 2 ML VIAL IV PRN (20:14)
[2021-05-19] MEDS ORDERED: POLYETHYLENE (MIRALAX) 17 GM PACK PO PRN (20:14)
[2021-05-19] MEDS ORDERED: MAGNESIUM HYDROXIDE SUSP 30 ML UDC PO PRN (20:14)
[2021-05-19] MEDS ORDERED: LORazepam 1 MG TAB PO PRN (21:15)
[2021-05-19] MEDS: SODIUM CHLORIDE 0.9% 1000ML 1,000 ML IV SCH (21:29)
[2021-05-19] MEDS: FOLIC ACID 1 MG TAB PO SCH (21:29)
[2021-05-19] MEDS: hydrOXYzine HCl 25 MG TAB PO SCH (21:29)
[2021-05-19] MEDS: GABAPENTIN 300 MG CAP PO SCH (21:29)
[2021-05-19] MEDS: DOXEPIN HCL 50 MG CAPSULE PO SCH (21:29)
[2021-05-19] MEDS: FAMOTIDINE 20 MG in SYRINGE 3 ML IV SCH (21:29)
[2021-05-19] MEDS: THIAMINE HCL 100 MG in SYRINGE 9 ML IV SCH (21:30)
[2021-05-19] MEDS ORDERED: LORazepam 1 MG/2 ML VIAL IV PRN (22:30)
[2021-05-20] MEDS ORDERED: GLUCAGON FOR INJ 1 MG VIAL SQ PRN (05:16)
[2021-05-20] MEDS ORDERED: ATIVAN IV ALCOHOL WITHDRAWL IV PRN (05:16)
[2021-05-20] MEDS ORDERED: LORazepam 2 MG/4 ML VIAL IV PRN (05:16)
[2021-05-20] MEDS ORDERED: DEXTROSE 50% 50 ML SYRINGE IV PRN (05:16)
[2021-05-20] MEDS ORDERED: GLUCOSE 40% GEL 15 GM TUBE PO PRN (05:16)
[2021-05-20] MEDS ORDERED: LORazepam 3 MG/6 ML VIAL IV PRN (05:16)
[2021-05-20] MEDS ORDERED: LORazepam 1 MG TAB PO PRN (05:16)
[2021-05-20] MEDS ORDERED: CARBOHYDRATES FOR HYPOGLYCEMIA PO PRN (05:16)
[2021-05-20] MEDS ORDERED: GLUCOSE 10 TABS/TUBE PO PRN (05:16)
[2021-05-20] MEDS: LORazepam 1 MG/2 ML VIAL IV PRN ×2 (05:20→19:26)
[2021-05-20] MEDS ORDERED: LORazepam 2 MG/4 ML VIAL ONE (05:25)
[2021-05-20] MEDS ORDERED: chlordiazePOXIDE HCl 25 MG CAP PO SCH (06:00)
[2021-05-20 07:30] LABS: Albumin Globulin Ratio 1.5 (0.9-2); Albumin Level 3.6 gm/dl (3.4-5.0); BUN Creatinine Ratio 13.7 (10-20); Bilirubin,Total 0.9 mg/dl (0.2-1.0); Calcium 8.2 mg/dl (8.5-10.1); Creatinine Clr Calc Pharmacy 94.5 ml/min; Est GFR (African American) 89.3 ml/min; Est GFR (Non-African American) 77.1 ml/min; Globulin 2.4 gm/dl (2.5-4.0); Potassium 3.9 mmol/L (3.5-5.1)
[2021-05-20] MEDS: FOLIC ACID 1 MG TAB PO SCH (09:28)
[2021-05-20] MEDS: GABAPENTIN 300 MG CAP PO SCH ×3 (09:29→20:45)
[2021-05-20] MEDS: hydrOXYzine HCl 25 MG TAB PO SCH ×3 (09:29→20:46)
[2021-05-20] MEDS: DULoxetine HCL 60 MG CAP PO SCH (09:29)
[2021-05-20] MEDS: FAMOTIDINE 20 MG in SYRINGE 3 ML IV SCH ×2 (09:30→20:45)
[2021-05-20] MEDS: THIAMINE HCL 100 MG in SYRINGE 9 ML IV SCH (09:34)
[2021-05-20] MEDS: SODIUM CHLORIDE 0.9% 1000ML 1,000 ML IV SCH (10:23)
--- NOTE | 2021-05-20 11:16 | Electrocardiogram Report ---
Test Reason : Blood Pressure : / mmHG Vent. Rate : 097 BPM Atrial Rate : 097 BPM P-R Int : 134 ms QRS Dur : 080 ms QT Int : 344 ms P-R-T Axes : 065 059 015 degrees QTc Int : 436 ms Normal sinus rhythm ST and T wave abnormality, consider anterior ischemia and inferolateral Abnormal ECG When compared with ECG of 27-AUG-2020 01:12, The ST/T changes are worse Confirmed by Bandar Reyes ([id number]) on 05/20/2021 11:15:40 AM Referred By: REFERRED SELF Confirmed By:Bandar Reyes
[2021-05-20 13:26] LABS: Appearance Urine Cloudy (Clear); Bacteria Urine Automated 3+ (Negative); Bilirubin Urine Negative (Negative); Blood Urine Trace (Negative); Color Urine Yellow; Epithelial Cell Urine Auto >30 /lpf (0-5); Glucose Urine UA Negative (Negative); Ketones Urine Trace (Negative); Leukocyte Esterase Urine 2+ (Negative); Nitrite Urine Positive (Negative); Protein Urine Negative (Negative); RBC Urine Automated 0-4 /hpf (0-4); Specific Gravity Urine 1.018 (1.000-1.030); Urobilinogen Urine Negative (Negative); WBC Urine Automated >30 /hpf (0-5)
--- NOTE | 2021-05-20 13:58 | Hospitalist Progress Note ---
Date of Service May 20, 2021 Assessment & Plan (1) Alcohol abuse: Plan: - Appears to have acute intoxication with ETOH of 349 on admission but resolved today; Drowsy even though has only had Ativan early this AM. She does awaken easily to verbal cues and reports anxiety but no tremors, perspiration, or hallucinations/delusions; remains slightly tachy. She does answer appropriately to questions and understands her current situation - She was admitted in July and August 2020 with alcohol withdrawal request however required ICU admissions due to alcoholic ketoacidosis. Thankfully she is not to that severity however anion gap was at 13 on admission which did improve on AM labs and currently resolved. Vital signs stable (sinus tach) and no signs of hypoxia. -- If she should become obtunded or hypoxic recommend ABG. - Tox screen pending - Had banana bag in ED. Continue gentle hydration with IVFs - Thiamine 100 mg IV daily and Folic Acid daily - Pepcid IV BID - AWSS protocol with Ativan for now - may benefit from switching over the Librium as she has used this before successfully (2) Tachycardia: Plan: - Suspect in the setting of anxiety/withdrawal - sinus tach - Monitor on telemetry (3) Anxiety with depression: Plan: - Acutely exacerbated in the setting of recent miscarriage - Continue home Doxepin 100 mg HS, Duloxetine 60 mg daily, Gabapentin 300 mg TID, Vistaril TID (4) Miscarriage: Plan: - Reports miscarriage at the end of March. Did not see OB as the first available appointment was mid-May and miscarried prior to that date - Reports her PCP was monitoring her HCG levels and they have trended down; she has tested negative for on admission labs - She reports she is no longer having vaginal bleeding; Hgb is non-anemic - May be beneficial to supply resources for support groups for those who have experienced miscarriage (5) Hepatic steatosis: Plan: - Noted on previous CT and U/S -- likely secondary to ETOH intake - LFTs are WNL; no abdominal pain; no jaundice (6) UTI (urinary tract infection): Plan: - Does report some suprapubic discomfort intermittently and some dysuria however also states she tends to hold her bladder so sometimes she can have dysuria especially with drinking - UA suggestive of UTI and will treat as possibly having symptoms - UCx pending - Rocephin IV daily Plan: On Ativan protocol but may benefit from changing to Librium taper and monitor for severe withdrawal symptoms. Reports good support with her bf at bedside. Does not plan on inpatient ETOH rehab at this time She does allow to update boyfriend as needed. Edin Carbone -- [phone] Admission and Anticipated Discharge Date Admission Date: May 19, 2021 Subjective No acute events overnight. AWSS score improving through the day. Sinus tach on monitor. She is mostly sleeping through the day but awakens easily. She reports mostly anxiety and generalized malaise. No much of an appetite today. Reports that she feels she has good community resources and not interested in inpatient rehab at this time. Anion gap is resolved. Electrolytes acceptable. Review of Systems Review of Systems: All systems reviewed & are unremarkable except as noted in Subjective Physical Exam Physical Exam: PHYSICAL EXAM General Appearance: WDWN in NAD who is A&O x 3; however drowsy but follows commands and awakens to verbal cures and answers questions appropriately HEENT: Head is normocephalic/atraumatic; Hearing grossly intact; Mucous membranes moist Neck: Supple; Trachea midline; Neg JVD Heart: regular rhythm, slightly tachy with no M/G/R Lungs: CTA in all lung falcon bilaterally; Respirations unlabored; Neg accessory muscle use Abdomen: Soft, non-tender, non-distended; Positive BS x 4 quadrants Extremities: Neg cyanosis or edema Neurological: Speech clear; Gross motor/sensory function intact; Neg focal neurologic deficits; no tremors Psychiatric: Appropriate mood/affect but drowsy Skin: Normal Color; Warm/Dry Results & Data Results & Data ([facility]) Vital Signs (Past 12 Hours) Vital Signs Temp Pulse Pulse Resp BP BP Pulse Ox 05/20/21 12:41 36.9 C 110 H 18 117/76 95 05/20/21 08:01 99 H 05/20/21 07:17 37.1 C 100 H 20 125/86 99 05/20/21 05:14 36.9 C 113 H 18 137/82 98 05/20/21 03:51 36.3 C L 113 H 20 122/80 95 PG Care Time/CCT Total # of Minutes Spent Total Time Spent with Patient: Total time spent is greater than 50% in coordination of care (as documented) at patient's floor/unit and/or counseling patient: Coding Level of Care Code 68598 Subseq Hosp Care Lvl 3 Diagnoses Alcohol abuse F10.10 Tachycardia R00.0 Anxiety with depression F41.8 Miscarriage O03.9 Hepatic steatosis K76.0 UTI (urinary tract infection) N39.0
[2021-05-20 14:06] LABS: Amphetamines+Metham, Urine Neg (Neg); Barbiturates, Urine Neg (Neg); Benzodiazepine, Urine Pos (Neg); Cocaine, Urine Neg (Neg); MDMA (Ecstacy), Urine Neg (Neg); Methadone, Urine Neg (Neg); Opiate, Urine Neg (Neg); Phencyclidine, Urine Neg (Neg)
[2021-05-20] MEDS ORDERED: cefTRIAXone SODIUM 2,000 MG in DEXTROSE 5% 50 ML IV SCH (14:30)
[2021-05-20] MEDS: DOXEPIN HCL 50 MG CAPSULE PO SCH (20:45)
[2021-05-21 06:19] LABS: Albumin Globulin Ratio 1.5 (0.9-2); Albumin Level 3.4 gm/dl (3.4-5.0); BUN Creatinine Ratio 13.6 (10-20); Bilirubin,Total 0.7 mg/dl (0.2-1.0); Calcium 8.3 mg/dl (8.5-10.1); Creatinine Clr Calc Pharmacy 110.8 ml/min; Est GFR (African American) 108.3 ml/min; Est GFR (Non-African American) 93.4 ml/min; Globulin 2.2 gm/dl (2.5-4.0); Potassium 3.8 mmol/L (3.5-5.1); Total Protein 5.6 gm/dl (6.0-8.3)
--- NOTE | 2021-05-21 07:32 | Hospitalist Progress Note ---
Date of Service May 21, 2021 Assessment & Plan Admission and Anticipated Discharge Date Admission Date: May 19, 2021 Results & Data Results & Data ([facility]) Vital Signs (Past 12 Hours) Vital Signs Temp Pulse Pulse Resp BP Pulse Ox 05/21/21 07:31 72 05/21/21 07:23 72 05/21/21 05:06 36.7 C 81 18 125/83 96 05/21/21 01:00 36.7 C 90 18 131/89 98 05/20/21 22:50 86 05/20/21 21:01 36.6 C 94 H 18 134/90 95 Laboratory Results 05/21/21 05/20/21 05/20/21 Range/Units 05:20 13:10 13:10 Sodium 138 (136-145) mmol/L Potassium 3.8 (3.5-5.1) mmol/L Chloride 105 (98-107) mmol/L Carbon Dioxide 27 (21-32) mmol/L Anion Gap 6 (3-11) BUN 11 (6-23) mg/dl Creatinine 0.81 (0.6-1.2) mg/dl Est Cr Clr Drug Dosing 110.8 ml/min Est GFR ( Amer) 108.3 ml/min Est GFR (Non-Af Amer) 93.4 ml/min BUN/Creatinine Ratio 13.6 (10-20) Glucose 80 (70-99(Fasting)) mg/dl Calcium 8.3 L (8.5-10.1) mg/dl Total Bilirubin 0.7 (0.2-1.0) mg/dl AST 19 (13-39) U/L ALT 10 (7-52) U/L Alkaline Phosphatase 46 (34-104) U/L Total Protein 5.6 L (6.0-8.3) gm/dl Albumin 3.4 (3.4-5.0) gm/dl Globulin 2.2 L (2.5-4.0) gm/dl Albumin/Globulin Ratio 1.5 (0.9-2) Urine Color Urine Appearance (Clear) Urine pH (4.5-7.5) Ur Specific [place] (1.000-1.030) Urine Protein (Negative) Urine Glucose (UA) (Negative) Urine Ketones (Negative) Urine Blood (Negative) Urine Nitrite (Negative) Urine Bilirubin (Negative) Urine Urobilinogen (Negative) Ur Leukocyte Esterase (Negative) Urine WBC (Auto) (0-5) /hpf Urine RBC (Auto) (0-4) /hpf U Hyaline Cast (Auto) (0-5) /lpf U Epithel Cells (Auto) (0-5) /lpf Urine Bacteria (Auto) (Negative) Urine Opiates Screen Neg (Neg) Ur Methadone, Qual Neg (Neg) Urine Barbiturates Neg (Neg) Ur Phencyclidine (PCP) Neg (Neg) U Amphetamin/Meth Scrn Neg (Neg) MDMA (Ecstasy) Screen Neg (Neg) U OH-Alprazolam Confrm Pending U Benzodiazepines Scrn Pos H (Neg) 7-Amino Clonazepam Pending Ur Nordiazepam Confirm Pending U OH-ethylflurazepam Pending U Lorazepam Cnf GC/MS Pending U Oxazepam Confm GC/MS Pending Ur Temazepam Confirm Pending U OH-Triazolam Confirm Pending U OH-Midazolam Confirm Pending Ur Cocaine Metabolite Neg (Neg) U Marijuana (THC) Screen Pos H (Neg) U Marijuana THC Carboxy Pending Drug Screen Comment Pending 05/20/21 Range/Units 13:10 Sodium (136-145) mmol/L Potassium (3.5-5.1) mmol/L Chloride (98-107) mmol/L Carbon Dioxide (21-32) mmol/L Anion Gap (3-11) BUN (6-23) mg/dl Creatinine (0.6-1.2) mg/dl Est Cr Clr Drug Dosing ml/min Est GFR ( Amer) ml/min Est GFR (Non-Af Amer) ml/min BUN/Creatinine Ratio (10-20) Glucose (70-99(Fasting)) mg/dl Calcium (8.5-10.1) mg/dl Total Bilirubin (0.2-1.0) mg/dl AST (13-39) U/L ALT (7-52) U/L Alkaline Phosphatase (34-104) U/L Total Protein (6.0-8.3) gm/dl Albumin (3.4-5.0) gm/dl Globulin (2.5-4.0) gm/dl Albumin/Globulin Ratio (0.9-2) Urine Color Yellow Urine Appearance Cloudy A (Clear) Urine pH 7.0 (4.5-7.5) Ur Specific [place] 1.018 (1.000-1.030) Urine Protein Negative (Negative) Urine Glucose (UA) Negative (Negative) Urine Ketones Trace H (Negative) Urine Blood Trace H (Negative) Urine Nitrite Positive A (Negative) Urine Bilirubin Negative (Negative) Urine Urobilinogen Negative (Negative) Ur Leukocyte Esterase 2+ H (Negative) Urine WBC (Auto) >30 H (0-5) /hpf Urine RBC (Auto) 0-4 (0-4) /hpf U Hyaline Cast (Auto) 1-5 (0-5) /lpf U Epithel Cells (Auto) >30 H (0-5) /lpf Urine Bacteria (Auto) 3+ H (Negative) Urine Opiates Screen (Neg) Ur Methadone, Qual (Neg) Urine Barbiturates (Neg) Ur Phencyclidine (PCP) (Neg) U Amphetamin/Meth Scrn (Neg) MDMA (Ecstasy) Screen (Neg) U OH-Alprazolam Confrm U Benzodiazepines Scrn (Neg) 7-Amino Clonazepam Ur Nordiazepam Confirm U OH-ethylflurazepam U Lorazepam Cnf GC/MS U Oxazepam Confm GC/MS Ur Temazepam Confirm U OH-Triazolam Confirm U OH-Midazolam Confirm Ur Cocaine Metabolite (Neg) U Marijuana (THC) Screen (Neg) U Marijuana THC Carboxy Drug Screen Comment PG Care Time/CCT Total # of Minutes Spent Total Time Spent with Patient: Total time spent is greater than 50% in coordination of care (as documented) at patient's floor/unit and/or counseling patient: Coding
[2021-05-21] MEDS: hydrOXYzine HCl 25 MG TAB PO SCH (08:46)
[2021-05-21] MEDS: FOLIC ACID 1 MG TAB PO SCH (08:46)
[2021-05-21] MEDS: GABAPENTIN 300 MG CAP PO SCH (08:46)
[2021-05-21] MEDS: DULoxetine HCL 60 MG CAP PO SCH (08:47)
[2021-05-21] MEDS: THIAMINE HCL 100 MG in SYRINGE 9 ML IV SCH (08:47)
[2021-05-21] MEDS: FAMOTIDINE 20 MG in SYRINGE 3 ML IV SCH (08:48)
[2021-05-21] MEDS ORDERED: chlordiazePOXIDE ALCOHOL WITHDRAWL 25MG PO STA (09:07)
[2021-05-21] MEDS ORDERED: chlordiazePOXIDE HCl 25 MG CAP PO SCH (09:15)
--- NOTE | 2021-05-21 09:17 | Discharge Summary ---
Date of Service May 21, 2021 Admission HPI Per Admitting Provider Ms. Ybarra is a very pleasant 35 y/o female with PMHx of Anxiety/Depression/PTSD who presents to the ED requesting assistance with ETOH withdrawal. Patient was admitted in July and August of 2020 related to the same and once went to a rehab and the next time returned home with community support. She reports sobriety x 4 months and feels her weekly D&A meetings are beneficial. She feels she has a good support system and appropriate resources. However, she reports relapse starting on 05/15 where she has been drinking about a pint of hard liquor a day. Last drink was this AM and ETOH level was 349.3 on admission. She does appear to be still intoxicated vs effects of medications given. She reports she has been doing well in regards to her drinking however reports increase stress related to a miscarriage at the end of March. She reports she has not seen OB as the earliest for an appointment was mid-May. However she was having HCG levels drawn by her PCP. She reports she then started bleeding around the end of March and her HCG levels have been dropping. She is no longer having vaginal bleeding. She has tested negative for on admission labs. She reports no nausea/vomiting, abdominal pain, CP, SOB. On previous admissions she has come in with alcoholic ketoacidosis with an elevated anion gap. On labs in the ED, her anion gap is 13. Electrolytes and CBC unremarkable. LFTs negative. TSH WNL. She was tachycardic on admission and this is improving. She denies H/O DTs or withdrawal seizures. She was treated with a banana bag and Librium/Ativan in the ED. Admission Exam Per Admitting Provider PHYSICAL EXAM General Appearance: WDWN in NAD who is A&O x 3; however drowsy but follows commands and answers questions appropriately HEENT: Head is normocephalic/atraumatic; Hearing grossly intact; Mucous membranes moist Neck: Supple; Trachea midline; Neg JVD Heart: regular rhythm, slightly tachy with no M/G/R Lungs: CTA in all lung falcon bilaterally; Respirations unlabored; Neg accessory muscle use Abdomen: Soft, non-tender, non-distended; Positive BS x 4 quadrants Extremities: Neg cyanosis or edema Neurological: Speech clear; Gross motor/sensory function intact; Neg focal neurologic deficits Psychiatric: Appropriate mood/affect Skin: Normal Color; Warm/Dry Principal Diagnosis Alcohol Withdrawal, UTI Discharge Exam General: WN,WD female laying in hospital bed, NAD Eyes: anicteric, pupils equal and reactive Trachea midline without deviation Resp: CTAB, no w/c/r, on room air CV: RRR, no m, r, g, no edema/calf tenderness GI: +BS, soft, non-tender to palpation (prior suprapubic tenderness resolved), no guarding/rebound : no johnson Skin: warm, dry Psych: AOx3, cooperative, pleasant Neuro: no focal deficit, no tremor, moves all extremities, CN intact grossly Discharge Data Allergies Allergy/AdvReac Type Severity Reaction Status Date / Time No Known Allergies Allergy Verified 05/19/21 16:07 Consultations 05/19/21 17:52 ED Decision to Admit Stat Hospital Course (1) Alcohol abuse: Appears to have acute intoxication with ETOH of 349 on admission. Recent miscarriage in March, prompting starting to drink again IVF/banana bag/thiamine/folic acid AWSS with ativan for withdrawal. No evidence for DTs or prior DTs during admissions Tox screen -- benzos + marijuana (rx for ativan [employer]) Pepcid IV BID for GI prophylaxis Tx of UTI as below -- no further abd cramping as reported days prior Discharged on librium taper given prior effectiveness. Patient with BF/[employer] counseling and family support and felt ready for discharge today and this was arranged (2) Tachycardia: Suspect in the setting of anxiety/withdrawal - sinus tach - Monitor on telemetry -- NSR 80-90s day of discharge Also could be from UTI -- tx Rocephin while inpatient, transitioned to keflex PO to complete course (3) Anxiety with depression: - Acutely exacerbated in the setting of recent miscarriage - Continued home Doxepin 100 mg HS, Duloxetine 60 mg daily, Gabapentin 300 mg TID, Vistaril TID Baseline with emotional stress but plans on continuing weekly counseling with her significant other (4) Miscarriage: Reports miscarriage at the end of March. Did not see OB as the first available appointment was mid-May and miscarried prior to that date - Reports her PCP was monitoring her HCG levels and they have trended down; she has tested negative for on admission labs - She reports she is no longer having vaginal bleeding; Hgb is non-anemic - May be beneficial to supply resources for support groups for those who have experienced miscarriage -- following up with [employer] counseling. emotional support provided (5) Hepatic steatosis: - Noted on previous CT and U/S -- likely secondary to ETOH intake - LFTs are WNL; no abdominal pain; no jaundice (6) UTI (urinary tract infection): - Does report some suprapubic discomfort intermittently and some dysuria however also states she tends to hold her bladder so sometimes she can have dysuria especially with drinking - UA suggestive of UTI and will treat as having symptoms --RESOLVED AFTER STARTING THE ROCEPHIN, urine cx pending at time of d/c but given improvement of symptoms sent on keflex to complete course of abx She does allow to update boyfriend as needed. Edin Carbone -- [phone] Total Time Total Time Spent Total Time Spent (In Minutes): 35 Discharge Plan Discharge Items Patient Disposition: Home - Self-Care Reason For Visit: ALCOHOL WITHDRAWL REQUEST Discharge Diagnosis: Alcohol Withdrawal Condition on Discharge: Fair Goals: You have been hospitalized for an acute medical problem. During your stay at [facility], we have made an effort to correct the problem that brought you to the hospital while keeping you as comfortable as possible. Medications were used to bring your condition under control and your discharge instructions will include directions for any medications you should take after leaving the hospital. Please make sure you see your Primary Care Provider as part of your follow up plan. Activity: Resume your previous activity Non-emergency contact: Primary Care Provider Call non-emergency contact if: you have any medication questions, your symptoms worsen and your pain is not controlled Follow-up/Referrals: Kris Cheung M.D. [Primary Care Provider] - (PLEASE CALL YOUR PRIMARY CARE PROVIDER TO SCHEDULE A DISCHARGE FOLLOW-UP APPOINTMENT WITHIN 7-10 DAYS.) Diet: Regular Addtl Attending Provider Instructions: You have been hospitalized for alcohol withdrawal. You were provided medications and IV fluids to help with symptoms and are being sent home on a Librium taper as discussed, as this was helpful last time. Librium 25mg every six hours for 2 days (7 more doses), then decrease to 10mg every 8 hours for tomorrow for total of 3 doses, then complete with 5mg every 12 hours for additional 2 doses. Given lower abdominal discomfort/nausea, urine sample was collected and appeared to be infected. You were given IV antibiotics and are being sent on keflex to complete a 5 day course. This will be 500mg every six hours (four times daily) for an additional 4 days to complete the course. You should continue follow up with your PCP and counselor for emotional support as this recent emotional stress can be triggering to start drinking. It is encouraged to abstain from all alcohol intake. Please follow up with PCP in the next 7-10 days to monitor your progress. Please return to the emergency department with any increased pain, fever, inability to keep up with oral intake, signs of withdrawal, or for any other symptoms concerning for you. Take care! Pending Studies at Discharge: Yes Studies:: Urine culture Stand-Alone Forms: My [facility] Medications and DC Order Prescriptions: New chlordiazepoxide HCl 5 mg Capsule 5 mg PO Q12H Qty: 2 RF: 0 chlordiazepoxide HCl 25 mg Capsule 0 mg PO Q6H Qty: 7 RF: 0 chlordiazepoxide HCl 10 mg Capsule 10 mg PO Q8H Qty: 3 RF: 0 cephalexin 500 mg capsule 500 mg PO Q6H 5 Days Qty: 20 RF: 0 chlordiazepoxide HCl 25 mg capsule 25 mg PO Q8H Qty: 7 RF: 0 Continued multivitamin Tablet 1 tab PO QAM RF: 0 hydroxyzine pamoate [Vistaril] 50 mg Capsule 50 mg PO TID RF: 0 gabapentin 300 mg capsule 300 mg PO TID RF: 0 Linzess 145 mcg capsule 145 mcg PO DAILY RF: 0 duloxetine 60 mg capsule,delayed release(DR/EC) 60 mg PO DAILY RF: 0 lorazepam [Ativan] 1 mg tablet 1 mg PO Q12H PRN (Reason: anxiety) Qty: 6 RF: 0 doxepin 100 mg capsule 100 mg PO HS RF: 0 Discharge Orders: Discharge Order (Routine); Ordered 05/21/21 Ordered By: Radha Garcia Admission Data Admit Date/Time: 05/19/21 18:45 Attending Provider: Chaitanya Marie Admit Provider: Chaitanya Marie Primary Care Provider: Kris Cheung Other Providers: Justin Bustamante Other Interventions: Discharge Summary Assessment (RN) Last Done: 05/21/21 10:46 Coding Level of Care Code D/C DAY MANAGEMENT >30 MINS Diagnoses Alcohol abuse F10.10 Tachycardia R00.0 Anxiety with depression F41.8 Miscarriage O03.9 Hepatic steatosis K76.0 UTI (urinary tract infection) N39.0
[2021-05-21] MEDS ORDERED: ATIVAN IV ALCOHOL WITHDRAWL IV PRN (11:37)
[2021-05-21] MEDS ORDERED: LORazepam 2 MG/1 ML VIAL IV PRN ×3 (11:37)
[2021-05-22 23:02] LABS: 7-Aminoclonaz, Confirm NEGATIVE ng/mL (<25); Hydro-Alp Ur, GC/MS NEGATIVE ng/mL (<25); Hydroxyethylflurazepam, Conf NEGATIVE ng/mL (<50); Hydroxymidazolam Ur, GC/MS NEGATIVE ng/mL (<50); Hydroxytriazolam NEGATIVE ng/mL (<50); Lorazepam, Ur GC/MS 1290 ng/mL (<50); Marijuana Quant, GCMS Urine 57 ng/mL (<5); Nordiazepam, Confirm NEGATIVE ng/mL (<50); Oxazepam Ur, GC/MS NEGATIVE ng/mL (<50); Temazepam, Confirm NEGATIVE ng/mL (<50)
[2021-05-23] MEDS ORDERED: chlordiazePOXIDE HCl 5 MG CAP PO SCH (10:00)
[2021-05-24] MEDS ORDERED: chlordiazePOXIDE HCl 5 MG CAP PO SCH (09:15)
== END 2021-05-21 12:45 | disposition home or self-care (01) ==
LOC: ED 15:48 → 2N 18:45 → INTOOBSV 18:45 → 2N 19:55

== ENCOUNTER 2021-08-27 08:16 | Observation (INO) ==
[2021-08-27] MEDS ORDERED: MULTI-VITAMIN INFUSION 10 ML, THIAMINE HCL 100 MG, FOLIC ACID 1 MG in SODIUM CHLORIDE 0... IV ONE (08:42)
[2021-08-27] MEDS ORDERED: SODIUM CHLORIDE 0.9% 1000ML 1,000 ML IV ONE (08:42)
--- NOTE | 2021-08-27 08:53 | Emergency Department Note ---
History of Present Illness General Chief complaint: Alcohol Intoxication Stated complaint: ALCOHOL WITHDRAWAL, CHEST PAIN, ABDOM PAIN Time Seen by Provider: 08/27/21 08:27 Source: patient Mode of arrival: ambulatory Limitations: no limitations History of Present Illness Provider complaint: Alcohol withdrawal, abdominal pain Onset (ago): day(s) 1 Location: abdomen Radiation: abdomen Maximum Pain Intensity: 8 Associated symptoms: + chest pain, + loss of appetite, + malaise and + nausea/vomiting; no fever/chills or no shortness of breath Treatments prior to arrival: none This is 36-year-old female presents emergency department with concern for alcohol withdrawal and pancreatitis. Patient states her last drink was yesterday evening. States she typically drinks about 1/5 of vodka a day. Patient states she has been drinking heavily since suffering a miscarriage se veral months ago. Patient does have a prior history of significant alcohol withdrawal requiring inpatient hospitalization. Denies any history of alcohol withdrawal related seizures. Patient states overnight and this morning she began to feel shaky, developed abdominal pain, nausea and vomiting. Patient states she has been unable to tolerate anything by mouth. She denies fevers or chills. She states her stools are loose but not diarrhea. Denies black or bloody stools. Pt seen during a time of high acuity and national emergency pandemic while wearing PPE. Home Medications Medication Instructions Recorded Confirmed Type gabapentin 300 mg capsule 300 mg PO TID 05/27/18 06/08/21 History hydroxyzine pamoate 50 mg capsule 50 mg PO TID 05/27/18 06/08/21 History (Vistaril) multivitamin 1 tab PO QAM 05/27/18 06/08/21 History linaclotide 145 mcg capsule 145 mcg PO DAILY 07/10/20 06/08/21 History (Linzess) duloxetine 60 mg capsule,delayed 60 mg PO DAILY 08/27/20 06/08/21 History release doxepin 100 mg capsule 100 mg PO HS 05/19/21 06/08/21 History lorazepam 0.5 mg tablet (Ativan) 0.5 mg PO BID PRN 06/08/21 06/08/21 History prazosin 1 mg capsule 3 mg PO HS 06/08/21 06/08/21 History chlordiazepoxide HCl 10 mg capsule 10 mg PO Q12H #2 cap 05/31/22 Rx chlordiazepoxide HCl 25 mg capsule 25 mg PO Q8H #3 cap 08/28/21 Rx chlordiazepoxide HCl 25 mg capsule 50 mg PO Q8H #6 cap 08/28/21 Rx folic acid 1 mg tablet 1,000 mcg PO DAILY #30 tab 08/28/21 Rx pantoprazole 40 mg tablet,delayed 40 mg PO BID #60 tab 08/28/21 Rx release sucralfate 100 mg/mL oral 1 g PO QID 30 Days #1200 ml 08/28/21 Rx suspension thiamine HCl (vitamin B1) 100 mg 100 mg PO DAILY #30 tab 08/28/21 Rx tablet Allergies Allergy/AdvReac Type Severity Reaction Status Date / Time No Known Allergies Allergy Verified 06/08/21 16:41 Past Med/Surg History Medical History Alcohol abuse Alcohol intoxication Anxiety with depression Hepatic steatosis No pertinent family history PTSD (post-traumatic stress disorder) Surgical History Previous section Social History Smoking Status: Never smoker Second Hand Exposure: No; Hx Alcohol Use: Yes Alcohol type: hard liquor Hx Substance Use: Yes Preferred Language: Greek Communication Ability: Effective Hadoop Consultant Required: No Beliefs That Will Affect Care: None marital status: Current Living Situation: Parent Current Living Situation Comment: with son and parents parents watching son How many Children do You have: 1 Feels Safe at Home: Yes Assistive Devices: None Review of Systems A total of 10 systems reviewed and were otherwise negative All systems reviewed & are unremarkable except as noted in HPI & below Physical Exam Vital Signs Vital Signs - 24 hr 08/27/21 08:21 08/27/21 08:34 08/27/21 09:00 Temperature 36.4 C L Temperature Source Temporal Artery Scan Pulse Rate 104 H 99 H 91 H Pulse Rate from SpO2 Sensor 102 H 92 H Respiratory Rate 20 23 33 H Respiratory Effort / Characteristics Non-Labored Respiratory Depth Normal Blood Pressure 158/99 H Blood Pressure Mean 118 Pulse Oximetry 98 98 94 Oxygen Delivery Method Room Air Sepsis Recent Fever Within 48 Hours No Sepsis New/Unexplained Change in Mental Status N/A Sepsis Action Taken by Nursing No Action Required 08/27/21 09:09 08/27/21 09:30 08/27/21 10:00 Temperature Temperature Source Pulse Rate 94 H 92 H 115 H Pulse Rate from SpO2 Sensor 92 H 91 H Respiratory Rate 22 17 16 Respiratory Effort / Characteristics Respiratory Depth Blood Pressure 141/103 H 139/94 Blood Pressure Mean 115 109 Pulse Oximetry 97 95 Oxygen Delivery Method Sepsis Recent Fever Within 48 Hours Sepsis New/Unexplained Change in Mental Status Sepsis Action Taken by Nursing 08/27/21 10:11 08/27/21 10:32 08/27/21 11:00 Temperature Temperature Source Pulse Rate 114 H 122 H 95 H Pulse Rate from SpO2 Sensor Respiratory Rate 18 33 H 16 Respiratory Effort / Characteristics Respiratory Depth Blood Pressure 165/98 H 137/97 Blood Pressure Mean 120 110 Pulse Oximetry Oxygen Delivery Method Sepsis Recent Fever Within 48 Hours Sepsis New/Unexplained Change in Mental Status Sepsis Action Taken by Nursing 08/27/21 11:30 Temperature Temperature Source Pulse Rate 92 H Pulse Rate from SpO2 Sensor 92 H Respiratory Rate 17 Respiratory Effort / Characteristics Respiratory Depth Blood Pressure 138/92 Blood Pressure Mean 107 Pulse Oximetry 96 Oxygen Delivery Method Sepsis Recent Fever Within 48 Hours Sepsis New/Unexplained Change in Mental Status Sepsis Action Taken by Nursing GENERAL: alert, unwell appearing, well nourished, no distress, non-toxic EYE EXAM: normal conjunctiva, PERRL and EOM's grossly intact OROPHARYNX: no exudate, no erythema, lips, buccal mucosa, and tongue normal and mucous membranes are dry NECK: supple, no nuchal rigidity, no adenopathy, non-tender LUNGS: Clear to auscultation. Normal chest wall mechanics, no w/r/r HEART: no murmurs, S1 normal and S2 normal ABDOMEN: abdomen soft, non-tender, normo-active bowel sounds, no masses, no rebound or guarding. BACK: Back is symmetrical on inspection and there is no deformity, no midline tenderness, no CVA tenderness. SKIN: no rashes and no bruising UPPER EXTREMITIES: upper extremities are grossly normal. FROM, nml pulses b/l. LOWER EXTREMITIES: No pitting edema. FROM, nml pulses b/l. NEURO EXAM: Normal sensorium, cranial nerves II-XII grossly intact, normal speech, no gross weakness of arms, no gross weakness of legs. Gross sensation intact. Tremors. Course Course 1025: Pt states she is still feeling shaky and nauseated. 1135: Pt feels improved. Now able to rest a little. Administered Medications Discontinued Medications Acetaminophen (Acetaminophen 325 Mg Tab) 650 mg PO Q4H PRN PRN Reason: Pain or Fever Stop: 09/26/21 13:40 Last Admin: 08/27/21 18:09 Dose: 650 mg Documented by: [id number] Chlordiazepoxide HCl (Chlordiazepoxide Alcohol Withdrawl 50mg) 1 ea PO NOW STA; Protocol Stop: 08/27/21 12:27 Last Admin: 08/27/21 14:19 Dose: Not Given Documented by: [id number] Chlordiazepoxide HCl (Chlordiazepoxide 50mg Starting Dose) 50 mg PO Q6H JOSE F; Protocol Stop: 08/28/21 08:01 Last Admin: 08/28/21 10:35 Dose: Not Given Documented by: [id number] Admin: 08/28/21 02:08 Dose: 50 mg Documented by: [id number] Admin: 08/27/21 20:14 Dose: 50 mg Documented by: [id number] Admin: 08/27/21 14:45 Dose: 50 mg Documented by: [id number] Diazepam (Diazepam 5 Mg/Ml Inj 10ml Vial) 10 mg IV NOW STA Stop: 08/27/21 08:43 Last Admin: 08/27/21 08:51 Dose: 10 mg Documented by: [id number] Diazepam (Diazepam 5 Mg/Ml Inj 10ml Vial) 10 mg IV NOW STA Stop: 08/27/21 10:40 Last Admin: 08/27/21 10:54 Dose: 10 mg Documented by: [id number] Diazepam (Diazepam 5 Mg/Ml Inj 10ml Vial) 5 mg IV NOW STA Stop: 08/27/21 12:10 Last Admin: 08/27/21 12:32 Dose: 5 mg Documented by: [id number] Doxepin HCl (Doxepin Hcl 50 Mg Capsule) 100 mg PO HS JOSE F Stop: 09/26/21 20:59 Last Admin: 08/27/21 20:15 Dose: 100 mg Documented by: [id number] Duloxetine HCl (Duloxetine Hcl 60 Mg Cap) 60 mg PO DAILY JOSE F Stop: 09/27/21 08:59 Last Admin: 08/28/21 12:49 Dose: 60 mg Documented by: [id number] Gabapentin (Gabapentin 300 Mg Cap) 300 mg PO TID JOSE F Stop: 09/26/21 13:59 Last Admin: 08/28/21 12:49 Dose: 300 mg Documented by: [id number] Admin: 08/28/21 10:00 Dose: Not Given Documented by: [id number] Admin: 08/27/21 20:15 Dose: 300 mg Documented by: [id number] Admin: 08/27/21 17:38 Dose: 300 mg Documented by: [id number] Sodium Chloride (Nss 1000ml) 1,000 mls @ 999 mls/hr IV .Q1H1M ONE Stop: 08/27/21 09:42 Last Infusion: 08/27/21 09:53 Dose: 0 mls/hr Documented by: [id number] Admin: 08/27/21 08:50 Dose: 999 mls/hr Documented by: [id number] Multivitamins 10 ml/ Thiamine HCl 100 mg/ Folic Acid 1 mg/Sodium Chloride 1,0 11.2 mls @ 250 mls/hr IV .Q4H3M ONE Stop: 08/27/21 12:44 Last Infusion: 08/27/21 14:22 Dose: 0 mls/hr Documented by: [id number] Admin: 08/27/21 09:13 Dose: 250 mls/hr Documented by: [id number] Famotidine (Pepcid 20mg Iv Push) 20 mg in 5 mls @ 2.5 mls/min IV NOW STA Stop: 08/27/21 09:56 Last Admin: 08/27/21 09:59 Dose: 2.5 mls/min Documented by: [id number] Magnesium Sulfate/Dextrose (Magnesium Sulfate / D5w) 1 gm in 100 mls @ 100 mls/hr IV NOW STA Stop: 08/27/21 10:54 Last Infusion: 08/27/21 11:02 Dose: 0 mls/hr Documented by: [id number] Admin: 08/27/21 10:02 Dose: 100 mls/hr Documented by: [id number] Magnesium Sulfate/Dextrose (Magnesium Sulfate / D5w) 1 gm in 100 mls @ 100 mls/hr IV NOW STA Stop: 08/27/21 10:56 Last Infusion: 08/27/21 11:55 Dose: 0 mls/hr Documented by: [id number] Admin: 08/27/21 10:55 Dose: 100 mls/hr Documented by: [id number] Prochlorperazine (Compazine) 1 mls @ 1 mls/min IV ONE ONE Stop: 08/27/21 09:57 Last Admin: 08/27/21 10:08 Dose: 1 mls/min Documented by: [id number] Magnesium Sulfate/Dextrose (Magnesium Sulfate / D5w) 1 gm in 100 mls @ 50 mls/hr IV Q2H JOSE F Stop: 08/27/21 18:29 Last Infusion: 08/27/21 20:17 Dose: 0 mls/hr Documented by: [id number] Admin: 08/27/21 18:13 Dose: 50 mls/hr Documented by: [id number] Infusion: 08/27/21 16:35 Dose: 0 mls/hr Documented by: [id number] Admin: 08/27/21 14:42 Dose: 50 mls/hr Documented by: [id number] Infusion: 08/27/21 14:22 Dose: 0 mls/hr Documented by: [id number] Admin: 08/27/21 12:49 Dose: 50 mls/hr Documented by: [id number] Thiamine HCl 200 mg/ Sodium (Chloride) 52 mls @ 208 mls/hr IV NOW STA Stop: 08/27/21 12:47 Last Infusion: 08/27/21 13:16 Dose: 0 mls/hr Documented by: [id number] Admin: 08/27/21 12:58 Dose: 208 mls/hr Documented by: [id number] Lactated Ringer's (Lr) 1,000 mls @ 80 mls/hr IV .[id number] [facility] Stop: 09/26/21 13:40 Last Admin: 08/28/21 10:39 Dose: 100 mls/hr Documented by: [id number] Infusion: 08/28/21 09:30 Dose: 100 mls/hr Documented by: [id number] Admin: 08/27/21 23:30 Dose: 100 mls/hr Documented by: [id number] Infusion: 08/27/21 23:30 Dose: 100 mls/hr Documented by: [id number] Admin: 08/27/21 14:41 Dose: 100 mls/hr Documented by: [id number] Thiamine HCl 300 mg/ Sodium (Chloride) 53 mls @ 208 mls/hr IV QAM JOSE F Stop: 09/27/21 08:59 Last Infusion: 08/28/21 11:17 Dose: 0 mls/hr Documented by: [id number] Admin: 08/28/21 10:39 Dose: 208 mls/hr Documented by: [id number] Folic Acid 1 mg/ Syringe 10 mls @ 5 mls/min IV QAM JOSE F Stop: 09/26/21 13:59 Last Admin: 08/28/21 10:34 Dose: 5 mls/min Documented by: [id number] Admin: 08/27/21 15:45 Dose: 5 mls/min Documented by: [id number] Famotidine 20 mg/ Syringe 5 mls @ 2.5 mls/min IV BID JOSE F Stop: 09/26/21 20:59 Last Admin: 08/28/21 10:39 Dose: 2.5 mls/min Documented by: [id number] Admin: 08/27/21 20:15 Dose: 2.5 mls/min Documented by: [id number] Ioversol (Optiray 320 100ml) 93 ml IV ONCE ONE Stop: 08/27/21 11:17 Last Admin: 08/27/21 11:21 Dose: 93 ml Documented by: [id number] Lidocaine HCl (Lidocaine Viscous 2% 15 Ml Udc) 15 ml MT NOW ONE Stop: 08/28/21 11:36 Last Admin: 08/28/21 12:50 Dose: 15 ml Documented by: [id number] Ondansetron HCl (Ondansetron Inj 2 Mg/Ml 2 Ml Vial) Confirm Administered Dose 4 mg .ROUTE .STK-MED ONE Stop: 08/27/21 09:56 Last Admin: 08/27/21 10:02 Dose: Not Given Documented by: [id number] Ondansetron HCl (Ondansetron Inj 2 Mg/Ml 2 Ml Vial) 4 mg IV NOW STA Stop: 08/27/21 09:56 Last Admin: 08/27/21 10:02 Dose: Not Given Documented by: [id number] Ondansetron HCl (Ondansetron Inj 2 Mg/Ml 2 Ml Vial) 4 mg IV Q6H PRN PRN Reason: Nausea Stop: 09/26/21 13:40 Last Admin: 08/27/21 14:42 Dose: 4 mg Documented by: [id number] Pantoprazole Sodium (Pantoprazole 40 Mg Tab) 40 mg PO QAM JOSE F Stop: 09/27/21 11:44 Last Admin: 08/28/21 12:39 Dose: Not Given Documented by: [id number] Pantoprazole Sodium (Pantoprazole 40 Mg Tab) 40 mg PO BID JOSE F Stop: 09/27/21 11:49 Last Admin: 08/28/21 12:49 Dose: 40 mg Documented by: [id number] Potassium Chloride (Potassium Chloride Crtab 20 Meq Tabcr) 40 meq PO NOW STA Stop: 08/28/21 08:05 Last Admin: 08/28/21 12:49 Dose: 40 meq Documented by: [id number] Sucralfate (Sucralfate 1 Gm/10 Ml Udc) 1 gm PO QID JOSE F Stop: 09/27/21 12:59 Last Admin: 08/28/21 12:50 Dose: 1 gm Documented by: [id number] Critical Care Time Critical Care Time: Yes Total Critical Care Time: 35 Critical care of 35 min performed to assess and manage high likelihood of life- threatening alcohol withdrawal, involving labs and imaging performed with assessment to evaluate alcohol withdrawal diagnosis and provide multipls doses of IV valium with frequent reassessment. This time includes bedside time, treatment discussions with patient/family/consultants, documentation time and excludes procedure time. Medical Decision Making Differential Diagnosis Differential diagnosis includes etiologies such as alcohol intoxication, toxicologic, infection, hypoglycemia, electrolyte abnormalities, cardiac sources, intracerebral event, neurologic, as well as others were entertained. Medical Records Attestation: I reviewed the patient's medical records. Home Medications Current Medication List: was personally reviewed by me Laboratory Data Attestation: I reviewed the patient's lab results. Result diagrams: 08/28/21 06:32 08/28/21 06:32 Lab Results 08/27/21 08/27/21 08/27/21 Range/Units 08:40 08:40 08:40 WBC 6.43 (4.8-10.8) K/uL RBC 4.50 (4.2-5.4) M/uL Hgb 13.5 (12.0-16.0) g/dL Hct 39.7 (37-47) % MCV 88.2 (80-100) fL MCH 30.0 (25-34) pg MCHC 34.0 (32-36) g/dL RDW Std Deviation 45.6 (36.4-46.3) fL RDW Coeff of [place] 14.2 (11.5-14.5) % Plt Count 289 (130-400) K/uL MPV 10.2 (7.4-10.4) fL Immature Gran % (Auto) 0.2 % Neut % (Auto) 65.8 % Lymph % (Auto) 25.3 % [place] % (Auto) 7.9 % Eos % (Auto) 0.5 % Baso % (Auto) 0.3 % Neut # (Auto) 4.23 (1.4-6.5) K/uL Lymph # (Auto) 1.63 (1.2-3.4) K/uL [place] # (Auto) 0.51 (0.11-0.59) K/uL Eos # (Auto) 0.03 (0-0.5) K/uL Baso # (Auto) 0.02 (0-0.2) K/uL Immature Gran # (Auto) 0.01 (0.00-0.02) K/uL Sodium 135 L (136-145) mmol/L Potassium 3.1 L (3.5-5.1) mmol/L Chloride 94 L (98-107) mmol/L Carbon Dioxide 25 (21-32) mmol/L Anion Gap 16 H (3-11) BUN 14 (6-23) mg/dl Creatinine 0.66 (0.6-1.2) mg/dl Est Cr Clr Drug Dosing 134.7 ml/min Est GFR ( Amer) 130.8 ml/min Est GFR (Non-Af Amer) 112.9 ml/min BUN/Creatinine Ratio 21.2 H (10-20) Glucose 119 H (70-99(Fasting)) mg/dl Calcium 10.4 H (8.5-10.1) mg/dl Magnesium 1.3 L (1.7-2.4) mg/dl Total Bilirubin 1.3 H (0.2-1.0) mg/dl AST 153 H (13-39) U/L ALT 71 H (7-52) U/L Alkaline Phosphatase 74 (34-104) U/L Troponin I High Sens 2.4 (0-14) pg/ml Total Protein 7.8 (6.0-8.3) gm/dl Albumin 4.8 (3.4-5.0) gm/dl Globulin 3.0 (2.5-4.0) gm/dl Albumin/Globulin Ratio 1.6 (0.9-2) Lipase 56 (11-82) U/L TSH 1.076 (0.300-4.500) uIu/ml HCG, Qual (Negative) Urine Color Urine Appearance (Clear) Urine pH (4.5-7.5) Ur Specific [place] (1.000-1.030) Urine Protein (Negative) Urine Glucose (UA) (Negative) Urine Ketones (Negative) Urine Blood (Negative) Urine Nitrite (Negative) Urine Bilirubin (Negative) Urine Urobilinogen (Negative) Ur Leukocyte Esterase (Negative) Urine WBC (Auto) (0-5) /hpf Urine RBC (Auto) (0-4) /hpf U Hyaline Cast (Auto) (0-5) /lpf U Epithel Cells (Auto) (0-5) /lpf Urine Bacteria (Auto) (Negative) Urine Opiates Screen (Neg) Ur Methadone, Qual (Neg) Urine Barbiturates (Neg) Ur Phencyclidine (PCP) (Neg) U Amphetamin/Meth Scrn (Neg) MDMA (Ecstasy) Screen (Neg) U Benzodiazepines Scrn (Neg) Ur Cocaine Metabolite (Neg) U Marijuana (THC) Screen (Neg) Ethyl Alcohol mg/dL (<10.0) mg/dl SARS-CoV-2, RNA, NAAT (NEGATIVE) 08/27/21 08/27/21 08/27/21 Range/Units 08:40 08:40 08:40 WBC (4.8-10.8) K/uL RBC (4.2-5.4) M/uL Hgb (12.0-16.0) g/dL Hct (37-47) % MCV (80-100) fL MCH (25-34) pg MCHC (32-36) g/dL RDW Std Deviation (36.4-46.3) fL RDW Coeff of [place] (11.5-14.5) % Plt Count (130-400) K/uL MPV (7.4-10.4) fL Immature Gran % (Auto) % Neut % (Auto) % Lymph % (Auto) % [place] % (Auto) % Eos % (Auto) % Baso % (Auto) % Neut # (Auto) (1.4-6.5) K/uL Lymph # (Auto) (1.2-3.4) K/uL [place] # (Auto) (0.11-0.59) K/uL Eos # (Auto) (0-0.5) K/uL Baso # (Auto) (0-0.2) K/uL Immature Gran # (Auto) (0.00-0.02) K/uL Sodium (136-145) mmol/L Potassium (3.5-5.1) mmol/L Chloride (98-107) mmol/L Carbon Dioxide (21-32) mmol/L Anion Gap (3-11) BUN (6-23) mg/dl Creatinine (0.6-1.2) mg/dl Est Cr Clr Drug Dosing ml/min Est GFR ( Amer) ml/min Est GFR (Non-Af Amer) ml/min BUN/Creatinine Ratio (10-20) Glucose (70-99(Fasting)) mg/dl Calcium (8.5-10.1) mg/dl Magnesium (1.7-2.4) mg/dl Total Bilirubin (0.2-1.0) mg/dl AST (13-39) U/L ALT (7-52) U/L Alkaline Phosphatase (34-104) U/L Troponin I High Sens (0-14) pg/ml Total Protein (6.0-8.3) gm/dl Albumin (3.4-5.0) gm/dl Globulin (2.5-4.0) gm/dl Albumin/Globulin Ratio (0.9-2) Lipase (11-82) U/L TSH (0.300-4.500) uIu/ml HCG, Qual Negative (Negative) Urine Color Yellow Urine Appearance Clear (Clear) Urine pH 6.0 (4.5-7.5) Ur Specific [place] 1.019 (1.000-1.030) Urine Protein 1+ H (Negative) Urine Glucose (UA) Negative (Negative) Urine Ketones 2+ H (Negative) Urine Blood 1+ H (Negative) Urine Nitrite Negative (Negative) Urine Bilirubin Negative (Negative) Urine Urobilinogen Negative (Negative) Ur Leukocyte Esterase Negative (Negative) Urine WBC (Auto) 1-5 (0-5) /hpf Urine RBC (Auto) 5-10 H (0-4) /hpf U Hyaline Cast (Auto) 1-5 (0-5) /lpf U Epithel Cells (Auto) >30 H (0-5) /lpf Urine Bacteria (Auto) 1+ H (Negative) Urine Opiates Screen (Neg) Ur Methadone, Qual (Neg) Urine Barbiturates (Neg) Ur Phencyclidine (PCP) (Neg) U Amphetamin/Meth Scrn (Neg) MDMA (Ecstasy) Screen (Neg) U Benzodiazepines Scrn (Neg) Ur Cocaine Metabolite (Neg) U Marijuana (THC) Screen (Neg) Ethyl Alcohol mg/dL 17.1 H (<10.0) mg/dl SARS-CoV-2, RNA, NAAT (NEGATIVE) 08/27/21 08/27/21 Range/Units 08:40 08:40 WBC (4.8-10.8) K/uL RBC (4.2-5.4) M/uL Hgb (12.0-16.0) g/dL Hct (37-47) % MCV (80-100) fL MCH (25-34) pg MCHC (32-36) g/dL RDW Std Deviation (36.4-46.3) fL RDW Coeff of [place] (11.5-14.5) % Plt Count (130-400) K/uL MPV (7.4-10.4) fL Immature Gran % (Auto) % Neut % (Auto) % Lymph % (Auto) % [place] % (Auto) % Eos % (Auto) % Baso % (Auto) % Neut # (Auto) (1.4-6.5) K/uL Lymph # (Auto) (1.2-3.4) K/uL [place] # (Auto) (0.11-0.59) K/uL Eos # (Auto) (0-0.5) K/uL Baso # (Auto) (0-0.2) K/uL Immature Gran # (Auto) (0.00-0.02) K/uL Sodium (136-145) mmol/L Potassium (3.5-5.1) mmol/L Chloride (98-107) mmol/L Carbon Dioxide (21-32) mmol/L Anion Gap (3-11) BUN (6-23) mg/dl Creatinine (0.6-1.2) mg/dl Est Cr Clr Drug Dosing ml/min Est GFR ( Amer) ml/min Est GFR (Non-Af Amer) ml/min BUN/Creatinine Ratio (10-20) Glucose (70-99(Fasting)) mg/dl Calcium (8.5-10.1) mg/dl Magnesium (1.7-2.4) mg/dl Total Bilirubin (0.2-1.0) mg/dl AST (13-39) U/L ALT (7-52) U/L Alkaline Phosphatase (34-104) U/L Troponin I High Sens (0-14) pg/ml Total Protein (6.0-8.3) gm/dl Albumin (3.4-5.0) gm/dl Globulin (2.5-4.0) gm/dl Albumin/Globulin Ratio (0.9-2) Lipase (11-82) U/L TSH (0.300-4.500) uIu/ml HCG, Qual (Negative) Urine Color Urine Appearance (Clear) Urine pH (4.5-7.5) Ur Specific [place] (1.000-1.030) Urine Protein (Negative) Urine Glucose (UA) (Negative) Urine Ketones (Negative) Urine Blood (Negative) Urine Nitrite (Negative) Urine Bilirubin (Negative) Urine Urobilinogen (Negative) Ur Leukocyte Esterase (Negative) Urine WBC (Auto) (0-5) /hpf Urine RBC (Auto) (0-4) /hpf U Hyaline Cast (Auto) (0-5) /lpf U Epithel Cells (Auto) (0-5) /lpf Urine Bacteria (Auto) (Negative) Urine Opiates Screen Neg (Neg) Ur Methadone, Qual Neg (Neg) Urine Barbiturates Neg (Neg) Ur Phencyclidine (PCP) Neg (Neg) U Amphetamin/Meth Scrn Neg (Neg) MDMA (Ecstasy) Screen Neg (Neg) U Benzodiazepines Scrn Pos H (Neg) Ur Cocaine Metabolite Neg (Neg) U Marijuana (THC) Screen Neg (Neg) Ethyl Alcohol mg/dL (<10.0) mg/dl SARS-CoV-2, RNA, NAAT NEGATIVE (NEGATIVE) Imaging Data Radiologist's Impression: Chest X-Ray 08/27/21 08:42 XR chest 1V portable CLINICAL HISTORY: Atypical chest pain TECHNIQUE: Single frontal radiograph of the chest was obtained. Comparison: Comparison is made to chest radiograph 05/27/2018 FINDINGS: No lines and tubes are seen. The cardiomediastinal silhouette is normal. The lungs are clear. No evidence of pleural effusion or pneumothorax. IMPRESSION: No acute chest disease. ACT 112: Negative or not required by law. Electronically signed by: Lester Johnson M.D. 08/27/2021 9:35 AM Abdomen/Pelvis CT 08/27/21 09:13 CT abd pelvis IV con only CLINICAL HISTORY: abd pain, hx pancreatitis TECHNIQUE: Helical axial images of the abdomen and pelvis were obtained and displayed. Automated dose lowering techniques and/or adjustment according to patient size were utilized for this exam. This exam was performed with intravenous contrast. CT DOSE: 506.36 mGy.cm COMPARISON: Comparison is made to CT abdomen pelvis 08/27/2020 FINDINGS: Lower chest: No acute abnormality Liver: Hepatic steatosis is noted. Gallbladder and biliary tree: No calcified gallstones. Normal caliber wall. No intra- or extrahepatic biliary ductal dilation. Pancreas: Unremarkable, no focal lesions. Spleen: Unremarkable. Adrenals: Unremarkable. Kidneys and ureters: Unremarkable. Bladder: Limited evaluation due to underdistention. Reproductive organs: Unremarkable. Bowel: Unremarkable appearance of the bowel. The appendix is normal. Lymph nodes Retroperitoneal: Unremarkable. Mesenteric: Unremarkable. Pelvic: Unremarkable. Peritoneum: Normal. Vessels: Unremarkable. Abdominal wall: Unremarkable. Bones: Bilateral pars defects are seen at L5. There is grade 1 anterolisthesis of L5-S1. IMPRESSION: No acute abnormalities and in particular no evidence of acute pancreatitis. ACT 112: Negative or not required by law. Electronically signed by: Lester Johnson M.D. 08/27/2021 11:38 AM ECG Data Attestation: I personally reviewed and interpreted this ECG as follows: Indication: + chest pain Rate (beats per minute): 87 Rhythm: + normal sinus ECG Intervals/blocks: + Normal QRS and + Normal QT ECG [place]: + Normal ECG ST segments: + T-wave inversions (V3-6) Additional Comments: Baseline artifact noted MDM Narrative An order was placed for continuous cardiac monitoring. The monitor shows a rate of _96__ with _normal sinus_ rhythm. This is a 36 yo female who presents with concern for alcohol withdrawal symptoms. No hx of seizures/DT's. Patient with obvious tremors here, complains of abd pain and n/v. VS otw stable. IVF started along with banana bag and pt given IV valium. Labs sent and pt sent for CT. No evidence of pancreatitis on labs/imaging. Patient was hypomagnesemic and started on repletion, likely from decreased overall intake and nutrition during recent binge of drinking. Patient given multiple doses of IV valium with improvement, however still high risk for significant withdrawal. All results discussed with patient at bedside. Case discussed with the hospitalist. No evidence of DT's while in the ER. I do not suspect ACS, GI bleed, perf, AAA, medistinitis, occult pna. LIkely pt with alcohol induced gastritis contributing to abd pain and GERD. Impression & Plan Alcohol withdrawal, Alcohol abuse, Hypomagnesemia, Abdominal pain, Chest pain, Hypokalemia, Transaminitis Discharge Plan Visit Data Chief Complaint: Alcohol Intoxication Stated Complaint: ALCOHOL WITHDRAWAL, CHEST PAIN, ABDOM PAIN ED Provider: Pita Ulrich Discharge Problem: Alcohol withdrawal, Alcohol abuse, Hypomagnesemia, Abdominal pain, Chest pain, Hypokalemia, Transaminitis Patient Disposition: Admitted As Inpatient Discharge Instructions Interventions: ED Discharge Assessment Last Done: 08/27/21 14:00 Discharge Problem: Alcohol withdrawal Qualifiers: Complication of substance-induced condition: uncomplicated Qualified Code(s): F10.230 - Alcohol dependence with withdrawal, uncomplicated Abdominal pain Qualifiers: Abdominal location: upper abdomen, unspecified Qualified Code(s): R10.10 - Upper abdominal pain, unspecified Chest pain Qualifiers: Chest pain type: unspecified Qualified Code(s): R07.9 - Chest pain, unspecified
[2021-08-27 08:59] LABS: Basophils # (auto) 0.02 K/uL (0-0.2); Basophils % (auto) 0.3 %; Eosinophils # (auto) 0.03 K/uL (0-0.5); Eosinophils % (auto) 0.5 %; Hematocrit (blood only) 39.7 % (37-47); Hemoglobin 13.5 g/dL (12.0-16.0); Immature Granulocytes # (auto) 0.01 K/uL (0.00-0.02); Immature Granulocytes % (auto) 0.2 %; Lymphocytes # (auto) 1.63 K/uL (1.2-3.4); Lymphocytes % (auto) 25.3 %; Mean Corpuscular Volume 88.2 fL (80-100); Mean Platelet Volume 10.2 fL (7.4-10.4); Monocytes # (auto) 0.51 K/uL (0.11-0.59); Monocytes % (auto) 7.9 %; Neutrophils # (auto) 4.23 K/uL (1.4-6.5); Neutrophils % (auto) 65.8 %; Platelet Count 289 K/uL (130-400); RDW Coefficient of Variation 14.2 % (11.5-14.5); RDW Standard Deviation 45.6 fL (36.4-46.3); White Blood Count 6.43 K/uL (4.8-10.8)
[2021-08-27 09:30] LABS: BUN Creatinine Ratio 21.2 (10-20); Calcium 10.4 mg/dl (8.5-10.1); Creatinine Clr Calc Pharmacy 134.7 ml/min; Est GFR (African American) 130.8 ml/min; Est GFR (Non-African American) 112.9 ml/min; Potassium 3.1 mmol/L (3.5-5.1); Troponin I High Sensitivity 2.4 pg/ml (0-14)
[2021-08-27 09:32] LABS: Albumin Globulin Ratio 1.6 (0.9-2); Albumin Level 4.8 gm/dl (3.4-5.0); Bilirubin,Total 1.3 mg/dl (0.2-1.0); Magnesium 1.3 mg/dl (1.7-2.4); Total Protein 7.8 gm/dl (6.0-8.3)
[2021-08-27 09:36] LABS: Pregnancy Test, Serum Negative (Negative)
--- NOTE | 2021-08-27 09:37 | XRay Report ---
XR chest 1V portable CLINICAL HISTORY: Atypical chest pain TECHNIQUE: Single frontal radiograph of the chest was obtained. Comparison: Comparison is made to chest radiograph 05/27/2018 FINDINGS: No lines and tubes are seen. The cardiomediastinal silhouette is normal. The lungs are clear. No evid ence of pleural effusion or pneumothorax. IMPRESSION: No acute chest disease. ACT 112: Negative or not required by law. Electronically signed by: Lester Johnson M.D. 08/27/2021 9:35 AM
[2021-08-27 09:38] LABS: Appearance Urine Clear (Clear); Bacteria Urine Automated 1+ (Negative); Bilirubin Urine Negative (Negative); Blood Urine 1+ (Negative); Color Urine Yellow; Epithelial Cell Urine Auto >30 /lpf (0-5); Glucose Urine UA Negative (Negative); Ketones Urine 2+ (Negative); Leukocyte Esterase Urine Negative (Negative); Nitrite Urine Negative (Negative); Protein Urine 1+ (Negative); Specific Gravity Urine 1.019 (1.000-1.030); Urobilinogen Urine Negative (Negative)
[2021-08-27] MEDS ORDERED: ONDANSETRON INJ 2 MG/ML 2 ML VIAL ONE (09:55)
[2021-08-27] MEDS ORDERED: MAGNESIUM SULFATE / D5W 1 GM/100 ML BAG IV STA ×2 (09:55→09:57)
[2021-08-27] MEDS ORDERED: ONDANSETRON INJ 2 MG/ML 2 ML VIAL IV STA (09:55)
[2021-08-27] MEDS ORDERED: FAMOTIDINE 20MG IV PUSH 20 MG/5 ML SYR IV STA (09:55)
[2021-08-27] MEDS ORDERED: PROCHLORPERAZINE 1 ML IV ONE (09:56)
[2021-08-27] MEDS ORDERED: OPTIRAY 320 100ml IV ONE (11:16)
--- NOTE | 2021-08-27 11:40 | CT Scan Report ---
CT abd pelvis IV con only CLINICAL HISTORY: abd pain, hx pancreatitis TECHNIQUE: Helical axial images of the abdomen and pelvis were obtained and displayed. Automated dose lowering techniques and/or adjustment according to patient size were utilized for this exam. This e xam was performed with intravenous contrast. CT DOSE: 506.36 mGy.cm COMPARISON: Comparison is made to CT abdomen pelvis 08/27/2020 FINDINGS: Lower chest: No acute abnormality Liver: Hepatic steatosis is noted. Gallbladder and biliary tree: No calcified gallstones. Normal caliber wall. No intra- or extrahepatic biliary ductal dilation. Pancreas: Unremarkable, no focal lesions. Spleen: Unremarkable. Adrenals: Unremarkable. Kidneys and ureters: Unremarkable. Bladder: Limited evaluation due to underdistention. Reproductive organs: Unremarkable. Bowel: Unremarkable appearance of the bowel. The appendix is normal. Lymph nodes Retroperitoneal: Unremarkable. Mesenteric: Unremarkable. Pelvic: Unremarkable. Peritoneum: Normal. Vessels: Unremarkable. Abdominal wall: Unremarkable. Bones: Bilateral pars defects are seen at L5. There is grade 1 anterolisthesis of L5-S1. IMPRESSION: No acute abnormalities and in particular no evidence of acute pancreatitis. ACT 112: Negative or not required by law. Electronically signed by: Lester Johnson M.D. 08/27/2021 11:38 AM
[2021-08-27] MEDS ORDERED: chlordiazePOXIDE ALCOHOL WITHDRAWL 50MG PO STA (12:26)
[2021-08-27] MEDS ORDERED: THIAMINE HCL 200 MG in SODIUM CHLORIDE 0.9% 50 ML IV STA (12:33)
--- NOTE | 2021-08-27 12:42 | History & Physical Report ---
Date of Service August 27, 2021 Assessment & Plan (1) Alcohol withdrawal: Plan: Patient presents with acute alcohol withdrawal with significant electrolyte abnormalities For the alcohol withdrawal she was given Valium in the ER we will continue with JAMES S scale with Valium She was given thiamine will be given additional thiamine daily Patient will have her anion gap acidosis and electrolytes repleted with magnesium and potassium, her anion gap will be continued Patient reportedly is involved in outpatient both substance abuse counseling and mental health counseling will not employ behavioral health counselor here unless new issues arise Patient reportedly is on monthly Vivitrol(naltrexone) shots as an outpatient Continue home Neurontin as it will have secondary effects of improving her withdrawal also With regard to her anion gap this is likely ketosis from starvation and alcohol use as it has been in the past patient self admits to not eating much food over the last few days. We will use lactated Ringer's and reassess her anion gap and electrolytes when she is replete with magnesium potassium. (2) PTSD (post-traumatic stress disorder): Plan: Regard to her PTSD and associated depression we will continue her duloxetine and doxepin Plan: Patient is a full code History of Present Illness Primary Care Provider: NO PCP 36-year-old female presents with alcohol withdrawal. Patient has a history of multiple admissions for the same. Patient has alcohol abuse Ludent with PTSD. Her last admission was May 2021. This particular episode the patient has recently broken up with her significant other that was a long-term relationship and moved back in with her parents and in order to deal with the stress of the situation resorted to drinking alcohol for which she drinks typically about 1/5 of vodka a day. Her last drink was on 08/26/2021 where she did drink 1/5 of vodka. Patient vomited slightly yesterday and today. She is a dark-colored urine without urinary tract symptoms of dysuria or frequency and her last bowel movement was a few days prior which was not dark in color. Patient is involved in both drug and alcohol counseling and [facility] for her PTSD and depression. Outside of her tremulousness and abdominal discomfort which initially caused her to present here (the abdominal discomfort is resolved) she has no other acute health problems that are going on Allergies Allergy/AdvReac Type Severity Reaction Status Date / Time No Known Allergies Allergy Verified 06/08/21 16:41 Home Medications Medication Instructions Recorded Confirmed Type gabapentin 300 mg capsule 300 mg PO TID 05/27/18 06/08/21 History hydroxyzine pamoate 50 mg capsule 50 mg PO TID 05/27/18 06/08/21 History (Vistaril) multivitamin 1 tab PO QAM 05/27/18 06/08/21 History linaclotide 145 mcg capsule 145 mcg PO DAILY 07/10/20 06/08/21 History (Linzess) duloxetine 60 mg capsule,delayed 60 mg PO DAILY 08/27/20 06/08/21 History release doxepin 100 mg capsule 100 mg PO HS 05/19/21 06/08/21 History chlordiazepoxide HCl 25 mg capsule See Rx Instructions .ROUTE 06/08/21 06/08/21 Rx .COMPLEX #10 cap lorazepam 0.5 mg tablet (Ativan) 0.5 mg PO BID PRN 06/08/21 06/08/21 History prazosin 1 mg capsule 3 mg PO HS 06/08/21 06/08/21 History Past Med/Surg History Medical History Alcohol abuse Alcohol intoxication Anxiety with depression Hepatic steatosis No pertinent family history PTSD (post-traumatic stress disorder) Surgical History Previous section Social History Smoking Status: Never smoker Second Hand Exposure: No; Hx Alcohol Use: Yes Alcohol type: hard liquor Hx Substance Use: No Preferred Language: Dominican Communication Ability: Effective [employer] Required: No Beliefs That Will Affect Care: None marital status: Single Current Living Situation: Spouse How many Children do You have: 1 Feels Safe at Home: Yes Assistive Devices: None Review of Systems Review of Systems: Mild distress and fatigue no headache, no visual changes no speech or swallowing issues no chest pain, pressure or palpitations no shortness of breath, cough or wheezes Central left upper quadrant abdominal pain she had some vomiting 1 day prior had no constipation no dysuria, hematuria or frequency urine has been darkened in color no focal joint pain or swelling no back pain, CVA tenderness or radicular pain no bruising, bleeding or rashes no focal signs of weakness or numbness or altered sensation Significant depression which prompts her to drink Physical Exam Physical Exam: The patient appeared well nourished and normally developed. Vital signs as documented. Sclera are not icteric Head exam is normocephalic atraumatic Neck is without JVD, thyromegaly, or carotid bruits. Lungs are clear to auscultation, no focal loss of breath sounds Cardiac exam, Rhythm is regular.. No murmurs, rubs or gallops. Abdominal exam reveals normal bowel sounds, soft mild epigastric tenderness no rebound no guarding Extremities are nonedematous and both pedal pulses are present Neurologic exam is alert and oriented, no focal loss of strength or sensation Patient is tremulous but there is no asterixis Skin is without bruises or rashes and is without jaundice Psychologically is with concerns for PTSD and significant depression Results & Data Results & Data ([facility]) Vital Signs (Past 12 Hours) Vital Signs Temp Pulse Resp BP Pulse Ox 08/27/21 11:30 92 H 17 138/92 96 08/27/21 11:00 95 H 16 137/97 08/27/21 10:32 122 H 33 H 08/27/21 10:11 114 H 18 165/98 H 08/27/21 10:00 115 H 16 08/27/21 09:30 92 H 17 139/94 95 08/27/21 09:09 94 H 22 141/103 H 97 08/27/21 09:00 91 H 33 H 94 08/27/21 08:34 99 H 23 98 08/27/21 08:21 97.5 F L 104 H 20 158/99 H 98 Diagnostic Findings Chest X-Ray 08/27/21 08:42 XR chest 1V portable CLINICAL HISTORY: Atypical chest pain TECHNIQUE: Single frontal radiograph of the chest was obtained. Comparison: Comparison is made to chest radiograph 05/27/2018 FINDINGS: No lines and tubes are seen. The cardiomediastinal silhouette is normal. The l ungs are clear. No evidence of pleural effusion or pneumothorax. IMPRESSION: No acute chest disease. ACT 112: Negative or not required by law. Electronically signed by: Lester Johnson M.D. 08/27/2021 9:35 AM Abdomen/Pelvis CT 08/27/21 09:13 CT abd pelvis IV con only CLINICAL HISTORY: abd pain, hx pancreatitis TECHNIQUE: Helical axial images of the abdomen and pelvis were obtained and displayed. Automated dose lowering techniques and/or adjustment according to patient size were utilized for this exam. This exam was performed with intravenous contrast. CT DOSE: 506.36 mGy.cm COMPARISON: Comparison is made to CT abdomen pelvis 08/27/2020 FINDINGS: Lower chest: No acute abnormality Liver: Hepatic steatosis is noted. Gallbladder and biliary tree: No calcified gallstones. Normal caliber wall. No intra- or extrahepatic biliary ductal dilation. Pancreas: Unremarkable, no focal lesions. Spleen: Unremarkable. Adrenals: Unremarkable. Kidneys and ureters: Unremarkable. Bladder: Limited evaluation due to underdistention. Reproductive organs: Unremarkable. Bowel: Unremarkable appearance of the bowel. The appendix is normal. Lymph nodes Retroperitoneal: Unremarkable. Mesenteric: Unremarkable. Pelvic: Unremarkable. Peritoneum: Normal. Vessels: Unremarkable. Abdominal wall: Unremarkable. Bones: Bilateral pars defects are seen at L5. There is grade 1 anterolisthesis of L5-S1. IMPRESSION: No acute abnormalities and in particular no evidence of acute pancreatitis. ACT 112: Negative or not required by law. Electronically signed by: Lester Johnson M.D. 08/27/2021 11:38 AM ECG Additional Comments: Patient has an abnormal EKG she is a sinus mechanism there are some lateral T wave changes this is similar to old PG Care Time/CCT Total # of Minutes Spent Total Time Spent with Patient: Total time spent is greater than 50% in coordination of care (as documented) at patient's floor/unit and/or counseling patient: Coding Level of Care Code 30684 Initial Inpt Care Lvl 2 Diagnoses Alcohol withdrawal F10.239 Complication of substance-induced condition: with unspecified complication PTSD (post-traumatic stress disorder) F43.10 (1) Alcohol withdrawal Complication of substance-induced condition: with unspecified complication Qualified Code(s): F10.239 - Alcohol dependence with withdrawal, unspecified
[2021-08-27] MEDS: MAGNESIUM SULFATE / D5W 1 GM/100 ML BAG IV SCH ×3 (12:49→18:13)
[2021-08-27 12:52] LABS: Base Excess VBG 1.8 mEq/L; HCO3 VBG 26 mmol/L; PCO2 VBG 41 mmHg (38-50); PO2 VBG 31 mmHg; pH VBG 7.42 (7.36-7.41)
[2021-08-27 13:13] LABS: Oxygen Saturation VBG < 60.0 %
[2021-08-27] MEDS ORDERED: chlordiazePOXIDE HCl 25 MG CAP PO SCH (13:41)
[2021-08-27] MEDS ORDERED: ACETAMINOPHEN 325 MG TAB PO PRN (13:41)
[2021-08-27] MEDS ORDERED: ONDANSETRON INJ 2 MG/ML 2 ML VIAL IV PRN (13:41)
[2021-08-27 13:42] LABS: Amphetamines+Metham, Urine Neg (Neg); Barbiturates, Urine Neg (Neg); Benzodiazepine, Urine Pos (Neg); Cocaine, Urine Neg (Neg); MDMA (Ecstacy), Urine Neg (Neg); Methadone, Urine Neg (Neg); Opiate, Urine Neg (Neg); Phencyclidine, Urine Neg (Neg)
[2021-08-27] MEDS: LACTATED RINGER'S 1,000 ML IV SCH ×2 (14:41→23:30)
[2021-08-27] MEDS: CHLORDIAZEPOXIDE 50MG STARTING DOSE PO SCH ×2 (14:45→20:14)
[2021-08-27] MEDS: FOLIC ACID 1 MG in SYRINGE 9.8 ML IV SCH (15:45)
[2021-08-27] MEDS: GABAPENTIN 300 MG CAP PO SCH ×2 (17:38→20:15)
[2021-08-27] MEDS ORDERED: LORazepam 2 MG/1 ML VIAL IV PRN ×3 (19:06)
[2021-08-27] MEDS ORDERED: ATIVAN IV ALCOHOL WITHDRAWL IV PRN (19:06)
[2021-08-27] MEDS ORDERED: LORazepam 1 MG TAB PO PRN (19:06)
[2021-08-27] MEDS: FAMOTIDINE 20 MG in SYRINGE 3 ML IV SCH (20:15)
[2021-08-27] MEDS ORDERED: DOXEPIN HCL 50 MG CAPSULE PO SCH (21:00)
[2021-08-28] MEDS: CHLORDIAZEPOXIDE 50MG STARTING DOSE PO SCH ×2 (02:08→10:35)
[2021-08-28 06:47] LABS: Basophils # (auto) 0.02 K/uL (0-0.2); Basophils % (auto) 0.4 %; Eosinophils # (auto) 0.09 K/uL (0-0.5); Eosinophils % (auto) 1.8 %; Hematocrit (blood only) 33.9 % (37-47); Hemoglobin 11.4 g/dL (12.0-16.0); Immature Granulocytes # (auto) 0.01 K/uL (0.00-0.02); Immature Granulocytes % (auto) 0.2 %; Lymphocytes # (auto) 2.19 K/uL (1.2-3.4); Lymphocytes % (auto) 44.8 %; Mean Corpuscular Hemoglobin 30.5 pg (25-34); Mean Corpuscular Hgb Conc 33.6 g/dL (32-36); Mean Corpuscular Volume 90.6 fL (80-100); Mean Platelet Volume 9.9 fL (7.4-10.4); Monocytes # (auto) 0.29 K/uL (0.11-0.59); Monocytes % (auto) 5.9 %; Neutrophils # (auto) 2.29 K/uL (1.4-6.5); Neutrophils % (auto) 46.9 %; Platelet Count 190 K/uL (130-400); RDW Coefficient of Variation 14.2 % (11.5-14.5); RDW Standard Deviation 46.3 fL (36.4-46.3); Red Blood Count 3.74 M/uL (4.2-5.4); White Blood Count 4.89 K/uL (4.8-10.8)
[2021-08-28 07:47] LABS: Albumin Level 3.7 gm/dl (3.4-5.0); Bilirubin Direct 0.2 mg/dl (0-0.2); Bilirubin,Total 1.3 mg/dl (0.2-1.0); Calcium 8.2 mg/dl (8.5-10.1); Creatinine Clr Calc Pharmacy 132.7 ml/min; Est GFR (African American) 130.1 ml/min; Est GFR (Non-African American) 112.3 ml/min; Magnesium 1.9 mg/dl (1.7-2.4); Potassium 3.2 mmol/L (3.5-5.1); Total Protein 5.8 gm/dl (6.0-8.3)
--- NOTE | 2021-08-28 08:01 | Electrocardiogram Report ---
Test Reason : Blood Pressure : / mmHG Vent. Rate : 090 BPM Atrial Rate : 090 BPM P-R Int : 096 ms QRS Dur : 080 ms QT Int : 398 ms P-R-T Axes : 002 041 -44 degrees QTc Int : 486 ms Poor data quality, interpretation may be adversely affected Sinus rhythm Diffuse chronic ST-T wave abnormality Abnormal ECG When compared with ECG of 19-MAY-2021 16:24, No significant change Confirmed by Renaldo Tejeda ([id number]) on 08/28/2021 8:00:52 AM Referred By: REFERRED SELF Confirmed By:Renaldo Tejeda
--- NOTE | 2021-08-28 08:02 | Hospitalist Progress Note ---
Date of Service August 28, 2021 Assessment & Plan (1) Alcohol withdrawal: Plan: Patient presents with acute alcohol withdrawal with significant electrolyte abnormalities --drinking 1/5th vodka a day, miscarriage earlier this year, recently broke up with significant other Etoh 17.1 on admission CTAP on admission without abnormality (no pancreatitis, given history) Anion gap resolved (16 on admit, likely anion gap from alcoholic/starvation ketosis) K 3.2 and additional 40meq ordered for replacement Mag 1.3-->1.9 AST 153--> 96 ALT 71--> 53 Continue thiamine daily (IV thiamine provided on admit) Continue Librium Taper (given Valium in ER). AWSS Continue home Neurontin as it will have secondary effects of improving her withdrawal also IVF with LR, decreased to 80cc/hr this morning Will also consult psych liaison to see about additional support/consideration for inpatient rehab although she has denied this in the past Continue to monitor on telemetry -- has been NSR, rates controlled Continue inpatient monitoring for DTs (2) PTSD (post-traumatic stress disorder): Plan: depression and PTSD Continue duloxetine, doxepin Consideration for discussion with psych about duloxetine and alcohol use/risk for seizures?/alternative meds. Will message psych provider (liason consult placed earlier) (3) Reflux gastritis: Plan: suspected, secondary to alcohol use/vomiting viscous lidocaine x 1 for pain switched famotidine to protonix , added carafate consult GI if needed but CTAP negative on admission No bleeding reported -- monitor Plan: continued inpatient monitoring Admission and Anticipated Discharge Date Admission Date: August 27, 2021 Subjective Patient evaluated this morning. Sleeping in bed, able to be aroused. States hasn't gotten much sleep in past couple of days so was nice to be able to rest. No further abdominal pain, but does endorse throat discomfort/burning, and thinks likely from continued vomiting prior to admission. No vomiting today. Will order medication and change famotidine to protonix and monitor. Could have gastritis/PUD from alcohol use as well. No nausea this morning but didn't have breakfast. Interested in eating lunch. Discussed psych liason consult. Not interested in inpatient D&A program at current but they will be by later for further discussions as she will continue to consider. Last drink [employer] 1/5th vodka. On monthly Viratrol injetions in [place]. Due currently for dose. questions/concerns addressed. will continue to monitor overnight/labs/intake. Review of Systems Review of Systems: All systems reviewed & are unremarkable except as noted in HPI & below Physical Exam Physical Exam: General: WN/WD tall female, NAD, sleeping in bed upon entry, able to be aroused/answer questions appropriately HEENT; head normocephalic, atraumatic, mmm, trachea midline without deviation, posterior oropharynx Resp: CTAB, diminished in the bases, no w/c/r, on room air CV: RRR, no m/r/g, calves non-tender GI:+BS, soft, nontender (exception slight tenderness deep epigastric) : no johnson MSK/Neuro: follows commands, answering questions appropriately, CN intact grossly, no focal deficit Psych: AOx3, drowsy, depressed affect but cooperative with exam and questions Results & Data Results & Data ([facility]) Vital Signs (Past 12 Hours) Vital Signs Temp Pulse Pulse Resp BP Pulse Ox 08/28/21 07:27 36.6 C 76 16 123/79 92 08/28/21 06:23 36.6 C 80 18 123/85 94 08/28/21 02:24 36.5 C 79 16 126/81 95 08/28/21 01:24 82 08/27/21 23:04 36.4 C L 117 H 18 135/88 98 Laboratory Results 08/28/21 08/28/21 08/27/21 Range/Units 06:32 06:32 12:39 WBC 4.89 (4.8-10.8) K/uL RBC 3.74 L (4.2-5.4) M/uL Hgb 11.4 L (12.0-16.0) g/dL Hct 33.9 L (37-47) % MCV 90.6 (80-100) fL MCH 30.5 (25-34) pg MCHC 33.6 (32-36) g/dL RDW Std Deviation 46.3 (36.4-46.3) fL RDW Coeff of Dall[place] 14.2 (11.5-14.5) % Plt Count 190 (130-400) K/uL MPV 9.9 (7.4-10.4) fL Immature Gran % (Auto) 0.2 % Neut % (Auto) 46.9 % Lymph % (Auto) 44.8 % [place] % (Auto) 5.9 % Eos % (Auto) 1.8 % Baso % (Auto) 0.4 % Neut # (Auto) 2.29 (1.4-6.5) K/uL Lymph # (Auto) 2.19 (1.2-3.4) K/uL [place] # (Auto) 0.29 (0.11-0.59) K/uL Eos # (Auto) 0.09 (0-0.5) K/uL Baso # (Auto) 0.02 (0-0.2) K/uL Immature Gran # (Auto) 0.01 (0.00-0.02) K/uL VBG pH 7.42 H (7.36-7.41) VBG pCO2 41 (38-50) mmHg VBG pO2 31 mmHg VBG HCO3 26 mmol/L VBG O2 Saturation < 60.0 % VBG Base Excess 1.8 mEq/L Barometric Pressure 734.2 mm/Hg Sodium 137 (136-145) mmol/L Potassium 3.2 L (3.5-5.1) mmol/L Chloride 98 (98-107) mmol/L Carbon Dioxide 31 (21-32) mmol/L Anion Gap 8 (3-11) BUN 6 (6-23) mg/dl Creatinine 0.67 (0.6-1.2) mg/dl Est Cr Clr Drug Dosing 132.7 ml/min Est GFR ( Amer) 130.1 ml/min Est GFR (Non-Af Amer) 112.3 ml/min BUN/Creatinine Ratio 9.0 L (10-20) Glucose 70 (70-99(Fasting)) mg/dl Calcium 8.2 L D (8.5-10.1) mg/dl Magnesium 1.9 (1.7-2.4) mg/dl Total Bilirubin 1.3 H (0.2-1.0) mg/dl Direct Bilirubin 0.2 (0-0.2) mg/dl AST 96 H (13-39) U/L ALT 53 H (7-52) U/L Alkaline Phosphatase 54 (34-104) U/L Troponin I High Sens (0-14) pg/ml Total Protein 5.8 L D (6.0-8.3) gm/dl Albumin 3.7 (3.4-5.0) gm/dl Globulin (2.5-4.0) gm/dl Albumin/Globulin Ratio (0.9-2) Lipase (11-82) U/L TSH (0.300-4.500) uIu/ml HCG, Qual (Negative) Urine Color Urine Appearance (Clear) Urine pH (4.5-7.5) Ur Specific [place] (1.000-1.030) Urine Protein (Negative) Urine Glucose (UA) (Negative) Urine Ketones (Negative) Urine Blood (Negative) Urine Nitrite (Negative) Urine Bilirubin (Negative) Urine Urobilinogen (Negative) Ur Leukocyte Esterase (Negative) Urine WBC (Auto) (0-5) /hpf Urine RBC (Auto) (0-4) /hpf U Hyaline Cast (Auto) (0-5) /lpf U Epithel Cells (Auto) (0-5) /lpf Urine Bacteria (Auto) (Negative) Urine Opiates Screen (Neg) Ur Methadone, Qual (Neg) Urine Barbiturates (Neg) Ur Phencyclidine (PCP) (Neg) U Amphetamin/Meth Scrn (Neg) MDMA (Ecstasy) Screen (Neg) U OH-Alprazolam Confrm U Benzodiazepines Scrn (Neg) 7-Amino Clonazepam Ur Nordiazepam Confirm U OH-ethylflurazepam U Lorazepam Cnf GC/MS U Oxazepam Confm GC/MS Ur Temazepam Confirm U OH-Triazolam Confirm U OH-Midazolam Confirm Ur Cocaine Metabolite (Neg) U Marijuana (THC) Screen (Neg) Drug Screen Comment Ethyl Alcohol mg/dL (<10.0) mg/dl SARS-CoV-2, RNA, NAAT (NEGATIVE) 08/27/21 08/27/21 08/27/21 Range/Units 08:40 08:40 08:40 WBC (4.8-10.8) K/uL RBC (4.2-5.4) M/uL Hgb (12.0-16.0) g/dL Hct (37-47) % MCV (80-100) fL MCH (25-34) pg MCHC (32-36) g/dL RDW Std Deviation (36.4-46.3) fL RDW Coeff of Dall[place] (11.5-14.5) % Plt Count (130-400) K/uL MPV (7.4-10.4) fL Immature Gran % (Auto) % Neut % (Auto) % Lymph % (Auto) % [place] % (Auto) % Eos % (Auto) % Baso % (Auto) % Neut # (Auto) (1.4-6.5) K/uL Lymph # (Auto) (1.2-3.4) K/uL [place] # (Auto) (0.11-0.59) K/uL Eos # (Auto) (0-0.5) K/uL Baso # (Auto) (0-0.2) K/uL Immature Gran # (Auto) (0.00-0.02) K/uL VBG pH (7.36-7.41) VBG pCO2 (38-50) mmHg VBG pO2 mmHg VBG HCO3 mmol/L VBG O2 Saturation % VBG Base Excess mEq/L Barometric Pressure mm/Hg Sodium (136-145) mmol/L Potassium (3.5-5.1) mmol/L Chloride (98-107) mmol/L Carbon Dioxide (21-32) mmol/L Anion Gap (3-11) BUN (6-23) mg/dl Creatinine (0.6-1.2) mg/dl Est Cr Clr Drug Dosing ml/min Est GFR ( Amer) ml/min Est GFR (Non-Af Amer) ml/min BUN/Creatinine Ratio (10-20) Glucose (70-99(Fasting)) mg/dl Calcium (8.5-10.1) mg/dl Magnesium (1.7-2.4) mg/dl Total Bilirubin (0.2-1.0) mg/dl Direct Bilirubin (0-0.2) mg/dl AST (13-39) U/L ALT (7-52) U/L Alkaline Phosphatase (34-104) U/L Troponin I High Sens (0-14) pg/ml Total Protein (6.0-8.3) gm/dl Albumin (3.4-5.0) gm/dl Globulin (2.5-4.0) gm/dl Albumin/Globulin Ratio (0.9-2) Lipase (11-82) U/L TSH (0.300-4.500) uIu/ml HCG, Qual (Negative) Urine Color Urine Appearance (Clear) Urine pH (4.5-7.5) Ur Specific [place] (1.000-1.030) Urine Protein (Negative) Urine Glucose (UA) (Negative) Urine Ketones (Negative) Urine Blood (Negative) Urine Nitrite (Negative) Urine Bilirubin (Negative) Urine Urobilinogen (Negative) Ur Leukocyte Esterase (Negative) Urine WBC (Auto) (0-5) /hpf Urine RBC (Auto) (0-4) /hpf U Hyaline Cast (Auto) (0-5) /lpf U Epithel Cells (Auto) (0-5) /lpf Urine Bacteria (Auto) (Negative) Urine Opiates Screen Neg (Neg) Ur Methadone, Qual Neg (Neg) Urine Barbiturates Neg (Neg) Ur Phencyclidine (PCP) Neg (Neg) U Amphetamin/Meth Scrn Neg (Neg) MDMA (Ecstasy) Screen Neg (Neg) U OH-Alprazolam Confrm Pending U Benzodiazepines Scrn Pos H (Neg) 7-Amino Clonazepam Pending Ur Nordiazepam Confirm Pending U OH-ethylflurazepam Pending U Lorazepam Cnf GC/MS Pending U Oxazepam Confm GC/MS Pending Ur Temazepam Confirm Pending U OH-Triazolam Confirm Pending U OH-Midazolam Confirm Pending Ur Cocaine Metabolite Neg (Neg) U Marijuana (THC) Screen Neg (Neg) Drug Screen Comment Pending Ethyl Alcohol mg/dL (<10.0) mg/dl SARS-CoV-2, RNA, NAAT NEGATIVE (NEGATIVE) 08/27/21 08/27/21 08/27/21 Range/Units 08:40 08:40 08:40 WBC (4.8-10.8) K/uL RBC (4.2-5.4) M/uL Hgb (12.0-16.0) g/dL Hct (37-47) % MCV (80-100) fL MCH (25-34) pg MCHC (32-36) g/dL RDW Std Deviation (36.4-46.3) fL RDW Coeff of Dallin (11.5-14.5) % Plt Count (130-400) K/uL MPV (7.4-10.4) fL Immature Gran % (Auto) % Neut % (Auto) % Lymph % (Auto) % [place] % (Auto) % Eos % (Auto) % Baso % (Auto) % Neut # (Auto) (1.4-6.5) K/uL Lymph # (Auto) (1.2-3.4) K/uL [place] # (Auto) (0.11-0.59) K/uL Eos # (Auto) (0-0.5) K/uL Baso # (Auto) (0-0.2) K/uL Immature Gran # (Auto) (0.00-0.02) K/uL VBG pH (7.36-7.41) VBG pCO2 (38-50) mmHg VBG pO2 mmHg VBG HCO3 mmol/L VBG O2 Saturation % VBG Base Excess mEq/L Barometric Pressure mm/Hg Sodium (136-145) mmol/L Potassium (3.5-5.1) mmol/L Chloride (98-107) mmol/L Carbon Dioxide (21-32) mmol/L Anion Gap (3-11) BUN (6-23) mg/dl Creatinine (0.6-1.2) mg/dl Est Cr Clr Drug Dosing ml/min Est GFR ( Amer) ml/min Est GFR (Non-Af Amer) ml/min BUN/Creatinine Ratio (10-20) Glucose (70-99(Fasting)) mg/dl Calcium (8.5-10.1) mg/dl Magnesium (1.7-2.4) mg/dl Total Bilirubin (0.2-1.0) mg/dl Direct Bilirubin (0-0.2) mg/dl AST (13-39) U/L ALT (7-52) U/L Alkaline Phosphatase (34-104) U/L Troponin I High Sens (0-14) pg/ml Total Protein (6.0-8.3) gm/dl Albumin (3.4-5.0) gm/dl Globulin (2.5-4.0) gm/dl Albumin/Globulin Ratio (0.9-2) Lipase (11-82) U/L TSH (0.300-4.500) uIu/ml HCG, Qual Negative (Negative) Urine Color Yellow Urine Appearance Clear (Clear) Urine pH 6.0 (4.5-7.5) Ur Specific [place] 1.019 (1.000-1.030) Urine Protein 1+ H (Negative) Urine Glucose (UA) Negative (Negative) Urine Ketones 2+ H (Negative) Urine Blood 1+ H (Negative) Urine Nitrite Negative (Negative) Urine Bilirubin Negative (Negative) Urine Urobilinogen Negative (Negative) Ur Leukocyte Esterase Negative (Negative) Urine WBC (Auto) 1-5 (0-5) /hpf Urine RBC (Auto) 5-10 H (0-4) /hpf U Hyaline Cast (Auto) 1-5 (0-5) /lpf U Epithel Cells (Auto) >30 H (0-5) /lpf Urine Bacteria (Auto) 1+ H (Negative) Urine Opiates Screen (Neg) Ur Methadone, Qual (Neg) Urine Barbiturates (Neg) Ur Phencyclidine (PCP) (Neg) U Amphetamin/Meth Scrn (Neg) MDMA (Ecstasy) Screen (Neg) U OH-Alprazolam Confrm U Benzodiazepines Scrn (Neg) 7-Amino Clonazepam Ur Nordiazepam Confirm U OH-ethylflurazepam U Lorazepam Cnf GC/MS U Oxazepam Confm GC/MS Ur Temazepam Confirm U OH-Triazolam Confirm U OH-Midazolam Confirm Ur Cocaine Metabolite (Neg) U Marijuana (THC) Screen (Neg) Drug Screen Comment Ethyl Alcohol mg/dL 17.1 H (<10.0) mg/dl SARS-CoV-2, RNA, NAAT (NEGATIVE) 08/27/21 08/27/21 08/27/21 Range/Units 08:40 08:40 08:40 WBC 6.43 (4.8-10.8) K/uL RBC 4.50 (4.2-5.4) M/uL Hgb 13.5 (12.0-16.0) g/dL Hct 39.7 (37-47) % MCV 88.2 (80-100) fL MCH 30.0 (25-34) pg MCHC 34.0 (32-36) g/dL RDW Std Deviation 45.6 (36.4-46.3) fL RDW Coeff of Dallin 14.2 (11.5-14.5) % Plt Count 289 (130-400) K/uL MPV 10.2 (7.4-10.4) fL Immature Gran % (Auto) 0.2 % Neut % (Auto) 65.8 % Lymph % (Auto) 25.3 % [place] % (Auto) 7.9 % Eos % (Auto) 0.5 % Baso % (Auto) 0.3 % Neut # (Auto) 4.23 (1.4-6.5) K/uL Lymph # (Auto) 1.63 (1.2-3.4) K/uL [place] # (Auto) 0.51 (0.11-0.59) K/uL Eos # (Auto) 0.03 (0-0.5) K/uL Baso # (Auto) 0.02 (0-0.2) K/uL Immature Gran # (Auto) 0.01 (0.00-0.02) K/uL VBG pH (7.36-7.41) VBG pCO2 (38-50) mmHg VBG pO2 mmHg VBG HCO3 mmol/L VBG O2 Saturation % VBG Base Excess mEq/L Barometric Pressure mm/Hg Sodium 135 L (136-145) mmol/L Potassium 3.1 L (3.5-5.1) mmol/L Chloride 94 L (98-107) mmol/L Carbon Dioxide 25 (21-32) mmol/L Anion Gap 16 H (3-11) BUN 14 (6-23) mg/dl Creatinine 0.66 (0.6-1.2) mg/dl Est Cr Clr Drug Dosing 134.7 ml/min Est GFR ( Amer) 130.8 ml/min Est GFR (Non-Af Amer) 112.9 ml/min BUN/Creatinine Ratio 21.2 H (10-20) Glucose 119 H (70-99(Fasting)) mg/dl Calcium 10.4 H (8.5-10.1) mg/dl Magnesium 1.3 L (1.7-2.4) mg/dl Total Bilirubin 1.3 H (0.2-1.0) mg/dl Direct Bilirubin (0-0.2) mg/dl AST 153 H (13-39) U/L ALT 71 H (7-52) U/L Alkaline Phosphatase 74 (34-104) U/L Troponin I High Sens 2.4 (0-14) pg/ml Total Protein 7.8 (6.0-8.3) gm/dl Albumin 4.8 (3.4-5.0) gm/dl Globulin 3.0 (2.5-4.0) gm/dl Albumin/Globulin Ratio 1.6 (0.9-2) Lipase 56 (11-82) U/L TSH 1.076 (0.300-4.500) uIu/ml HCG, Qual (Negative) Urine Color Urine Appearance (Clear) Urine pH (4.5-7.5) Ur Specific [place] (1.000-1.030) Urine Protein (Negative) Urine Glucose (UA) (Negative) Urine Ketones (Negative) Urine Blood (Negative) Urine Nitrite (Negative) Urine Bilirubin (Negative) Urine Urobilinogen (Negative) Ur Leukocyte Esterase (Negative) Urine WBC (Auto) (0-5) /hpf Urine RBC (Auto) (0-4) /hpf U Hyaline Cast (Auto) (0-5) /lpf U Epithel Cells (Auto) (0-5) /lpf Urine Bacteria (Auto) (Negative) Urine Opiates Screen (Neg) Ur Methadone, Qual (Neg) Urine Barbiturates (Neg) Ur Phencyclidine (PCP) (Neg) U Amphetamin/Meth Scrn (Neg) MDMA (Ecstasy) Screen (Neg) U OH-Alprazolam Confrm U Benzodiazepines Scrn (Neg) 7-Amino Clonazepam Ur Nordiazepam Confirm U OH-ethylflurazepam U Lorazepam Cnf GC/MS U Oxazepam Confm GC/MS Ur Temazepam Confirm U OH-Triazolam Confirm U OH-Midazolam Confirm Ur Cocaine Metabolite (Neg) U Marijuana (THC) Screen (Neg) Drug Screen Comment Ethyl Alcohol mg/dL (<10.0) mg/dl SARS-CoV-2, RNA, NAAT (NEGATIVE) Diagnostic Findings Chest X-Ray 08/27/21 08:42 XR chest 1V portable CLINICAL HISTORY: Atypical chest pain TECHNIQUE: Single frontal radiograph of the chest was obtained. Comparison: Comparison is made to chest radiograph 05/27/2018 FINDINGS: No lines and tubes are seen. The cardiomediastinal silhouette is normal. The lungs are clear. No evidence of pleural effusion or pneumothorax. IMPRESSION: No acute chest disease. ACT 112: Negative or not required by law. Electronically signed by: Lester Johnson M.D. 08/27/2021 9:35 AM Abdomen/Pelvis CT 08/27/21 09:13 CT abd pelvis IV con only CLINICAL HISTORY: abd pain, hx pancreatitis TECHNIQUE: Helical axial images of the abdomen and pelvis were obtained and displayed. Automated dose lowering techniques and/or adjustment according to patient size were utilized for this exam. This exam was performed with intravenous contrast. CT DOSE: 506.36 mGy.cm COMPARISON: Comparison is made to CT abdomen pelvis 08/27/2020 FINDINGS: Lower chest: No acute abnormality Liver: Hepatic steatosis is noted. Gallbladder and biliary tree: No calcified gallstones. Normal caliber wall. No intra- or extrahepatic biliary ductal dilation. Pancreas: Unremarkable, no focal lesions. Spleen: Unremarkable. Adrenals: Unremarkable. Kidneys and ureters: Unremarkable. Bladder: Limited evaluation due to underdistention. Reproductive organs: Unremarkable. Bowel: Unremarkable appearance of the bowel. The appendix is normal. Lymph nodes Retroperitoneal: Unremarkable. Mesenteric: Unremarkable. Pelvic: Unremarkable. Peritoneum: Normal. Vessels: Unremarkable. Abdominal wall: Unremarkable. Bones: Bilateral pars defects are seen at L5. There is grade 1 anterolisthesis of L5-S1. IMPRESSION: No acute abnormalities and in particular no evidence of acute pancreatitis. ACT 112: Negative or not required by law. Electronically signed by: Lester Johnson M.D. 08/27/2021 11:38 AM PG Care Time/CCT Total # of Minutes Spent Total Time Spent with Patient: Total time spent is greater than 50% in coordination of care (as documented) at patient's floor/unit and/or counseling patient: Coding Level of Care Code 31044 Subseq Hosp Care Lvl 2 Diagnoses Alcohol withdrawal F10.239 Complication of substance-induced condition: with unspecified complication PTSD (post-traumatic stress disorder) F43.10 Reflux gastritis K29.60 (1) Alcohol withdrawal Complication of substance-induced condition: with unspecified complication Qualified Code(s): F10.239 - Alcohol dependence with withdrawal, unspecified
[2021-08-28] MEDS ORDERED: POTASSIUM CHLORIDE CRTAB 20 MEQ TABCR PO STA (08:04)
--- NOTE | 2021-08-28 08:55 | Electrocardiogram Report ---
Test Reason : Blood Pressure : / mmHG Vent. Rate : 076 BPM Atrial Rate : 076 BPM P-R Int : 132 ms QRS Dur : 094 ms QT Int : 432 ms P-R-T Axes : 043 031 -10 degrees QTc Int : 486 ms Normal sinus rhythm Diffuse Nonspecific T wave abnormality Prolonged QT Abnormal ECG When compared with ECG of 27-AUG-2021 09:03, T wave inversion no longer evident in Lateral leads Confirmed by Renaldo Tejeda ([id number]) on 08/28/2021 8:55:00 AM Referred By: REFERRED SELF Confirmed By:Renaldo Tejeda
[2021-08-28] MEDS ORDERED: THIAMINE HCL 300 MG in SODIUM CHLORIDE 0.9% 50 ML IV SCH (09:00)
[2021-08-28] MEDS ORDERED: DULoxetine HCL 60 MG CAP PO SCH (09:00)
[2021-08-28] MEDS: GABAPENTIN 300 MG CAP PO SCH ×2 (10:00→12:49)
[2021-08-28] MEDS: FOLIC ACID 1 MG in SYRINGE 9.8 ML IV SCH (10:34)
[2021-08-28] MEDS: LACTATED RINGER'S 1,000 ML IV SCH (10:39)
[2021-08-28] MEDS: FAMOTIDINE 20 MG in SYRINGE 3 ML IV SCH (10:39)
[2021-08-28] MEDS ORDERED: LIDOCAINE VISCOUS 2% 15 ML UDC MT ONE (11:35)
[2021-08-28] MEDS ORDERED: PANTOprazole 40 MG TAB PO SCH ×2 (11:45→11:50)
[2021-08-28] MEDS ORDERED: SUCRALFATE 1 GM/10 ML UDC PO SCH (13:00)
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
[2021-08-28] MEDS ORDERED: CHLORDIAZEPOXIDE 50MG 2ND DOSE PO SCH (20:00)
[2021-08-29 19:42] LABS: 7-Aminoclonaz, Confirm NEGATIVE ng/mL (<25); Hydro-Alp Ur, GC/MS NEGATIVE ng/mL (<25); Hydroxyethylflurazepam, Conf NEGATIVE ng/mL (<50); Hydroxymidazolam Ur, GC/MS NEGATIVE ng/mL (<50); Hydroxytriazolam NEGATIVE ng/mL (<50); Lorazepam, Ur GC/MS NEGATIVE ng/mL (<50); Nordiazepam, Confirm NEGATIVE ng/mL (<50); Oxazepam Ur, GC/MS NEGATIVE ng/mL (<50); Temazepam, Confirm NEGATIVE ng/mL (<50)
[2021-08-29] MEDS ORDERED: CHLORDIAZEPOXIDE 25MG 3RD DOSE PO SCH (22:00)
[2021-08-31] MEDS ORDERED: CHLORDIAZEPOXIDE 10MG 4TH DOSE PO SCH
== END 2021-08-28 16:40 | disposition home or self-care (01) ==
LOC: ED 08:16 → SUATTDRO 12:39 → INTOOBSV 12:39 → EDINP 12:39 → 2N 14:00

== ENCOUNTER 2021-11-27 03:48 | Inpatient (IN) ==
[2021-11-27] MEDS ORDERED: MULTI-VITAMIN INFUSION 10 ML, THIAMINE HCL 100 MG, FOLIC ACID 1 MG in SODIUM CHLORIDE 0... IV ONE (04:04)
[2021-11-27] MEDS ORDERED: chlordiazePOXIDE HCl 25 MG CAP PO ONE (04:13)
[2021-11-27] MEDS ORDERED: LORazepam 2 MG/1 ML VIAL IV STA ×3 (04:13→09:32)
[2021-11-27 04:24] LABS: Basophils # (auto) 0.08 K/uL (0-0.2); Basophils % (auto) 1.2 %; Eosinophils # (auto) 0.08 K/uL (0-0.50); Eosinophils % (auto) 1.2 %; Hematocrit (blood only) 35.3 % (34.1-44.9); Hemoglobin 12.5 g/dl (12.0-16.0); Immature Granulocytes # (auto) 0.02 K/uL (0.00-0.02); Immature Granulocytes % (auto) 0.3 %; Lymphocytes # (auto) 2.88 K/uL (1.2-3.4); Lymphocytes % (auto) 42.6 %; Mean Corpuscular Hemoglobin 32.4 pg (25.0-34.0); Mean Corpuscular Hgb Conc 35.4 g/dL (32.0-36.0); Mean Corpuscular Volume 91.5 fL (80.0-100.0); Mean Platelet Volume 9.6 fL (9.4-12.3); Monocytes # (auto) 0.44 K/uL (0.24-0.82); Monocytes % (auto) 6.5 %; Neutrophils # (auto) 3.26 K/uL (1.4-6.5); Neutrophils % (auto) 48.2 %; Platelet Count 253 K/uL (130-400); RDW Standard Deviation 50.7 fL (36.4-46.3); Red Blood Count 3.86 M/uL (3.93-5.22); White Blood Count 6.76 K/ul (4.8-10.8)
[2021-11-27 04:28] LABS: Appearance Urine Cloudy (Clear); Bacteria Urine Automated Negative (Negative); Bilirubin Urine Negative (Negative); Blood Urine Negative (Negative); Cast Urine Automated 0 /lpf (0-5); Color Urine Yellow; Epithelial Cell Urine Auto >30 /lpf (0-5); Glucose Urine UA Negative (Negative); Ketones Urine Negative (Negative); Leukocyte Esterase Urine Negative (Negative); Nitrite Urine Negative (Negative); Protein Urine Negative (Negative); RBC Urine Automated 0-4 /hpf (0-4); Urobilinogen Urine Negative (Negative); pH Urine 7.5 (4.5-7.5)
[2021-11-27 04:43] LABS: Partial Thromboplastin Time 27.5 Seconds (21.0-31.0); Prothrombin Time 10.4 Seconds (9.0-12.0)
[2021-11-27 04:58] LABS: Albumin Globulin Ratio 1.6 (0.9-2); Albumin Level 4.1 gm/dl (3.4-5.0); BUN Creatinine Ratio 9.1 (10-20); Bilirubin,Total 0.6 mg/dl (0.2-1.0); Calcium 8.2 mg/dl (8.5-10.1); Creatinine Clr Calc Pharmacy 134.7 ml/min; Est GFR (African American) 130.8 ml/min; Est GFR (Non-African American) 112.9 ml/min; Globulin 2.5 gm/dl (2.5-4.0); Magnesium 1.6 mg/dl (1.7-2.4); Total Protein 6.6 gm/dl (6.0-8.3)
[2021-11-27 05:00] LABS: Pregnancy Test, Serum Negative (Negative)
[2021-11-27] MEDS ORDERED: POTASSIUM CHLORIDE CRTAB 20 MEQ TABCR PO STA (06:00)
--- NOTE | 2021-11-27 06:09 | History & Physical Report ---
Date of Service November 27, 2021 Assessment & Plan (1) Alcohol withdrawal: Plan: Alcohol withdrawal/alcohol dependence/alcohol abuse- Several previous admissions for same Admit to monitored bed Continue her usual regimen of chlordiazepoxide, doxepin, duloxetine, folic acid, gabapentin, hydroxyzine and prazosin Placed on AW protocol with IV Ativan Thiamine 100 mg p.o. daily Folic acid 1 mg p.o. daily Multivitamin 1 p.o. daily (2) Alcohol dependence: Plan: See above (3) Alcohol abuse: Plan: See above (4) Hypokalemia: Plan: Potassium 3.0 on admission Give Klor-Con 40 mEq p.o. now Receiving a banana bag now, NSS + KCl 20 mEq at 125 mils per hour following banana bag (5) Hypomagnesemia: Plan: Magnesium 1.6 upon admission Give mag sulfate 2 g IV, and repeat in a.m. (6) PTSD (post-traumatic stress disorder): Plan: PTSD/anxiety depression/recent miscarriage- Continue doxepin, duloxetine, gabapentin, prazosin (7) Anxiety with depression: Plan: See above (8) Transaminitis: Plan: History of more significant transaminitis at the previous admissions. AST mildly elevated at 45, follow serially (9) Reflux gastritis: Plan: Continue pantoprazole 40 mg p.o. twice daily Famotidine 20 mg IV every 12 hours History of Present Illness Chief Complaint: The patient presents to the emergency department with concerns regarding alcohol withdrawal, with her last alcohol intake being about 24 hours ago Primary Care Provider: NO PCP The patient is a 36-year-old female with past medical history including alcohol abuse, alcohol dependence, anxiety depression, PTSD, reflux esophagitis, hepatic steatosis, previous admissions for alcohol withdrawal, transaminitis, reflux gastritis and recent miscarriage 2 months ago. She reports that the stress from recent miscarriage has resolved and her recurrence of alcohol abuse issues. She feels jittery, shaky, nauseous and has a decreased appetite. She denies any suicidal ideation. Allergies Allergy/AdvReac Type Severity Reaction Status Date / Time No Known Allergies Allergy Verified 06/08/21 16:41 Home Medications Medication Instructions Recorded Confirmed Type gabapentin 300 mg capsule 300 mg PO TID 05/27/18 06/08/21 History hydroxyzine pamoate 50 mg capsule 50 mg PO TID 05/27/18 06/08/21 History (Vistaril) multivitamin 1 tab PO QAM 05/27/18 06/08/21 History linaclotide 145 mcg capsule 145 mcg PO DAILY 07/10/20 06/08/21 History (Linzess) duloxetine 60 mg capsule,delayed 60 mg PO DAILY 08/27/20 06/08/21 History release doxepin 100 mg capsule 100 mg PO HS 05/19/21 06/08/21 History lorazepam 0.5 mg tablet (Ativan) 0.5 mg PO BID PRN Anxiety 06/08/21 06/08/21 History prazosin 1 mg capsule 3 mg PO HS 06/08/21 06/08/21 History chlordiazepoxide HCl 10 mg capsule 10 mg PO Q12H #2 caps 08/28/21 Rx chlordiazepoxide HCl 25 mg capsule 25 mg PO Q8H #3 caps 08/28/21 Rx chlordiazepoxide HCl 25 mg capsule 50 mg PO Q8H #6 caps 08/28/21 Rx folic acid 1 mg tablet 1,000 mcg PO DAILY #30 tabs 08/28/21 Rx pantoprazole 40 mg tablet,delayed 40 mg PO BID #60 tabs 08/28/21 Rx release thiamine HCl (vitamin B1) 100 mg 100 mg PO DAILY #30 tabs 08/28/21 Rx tablet Past Med/Surg History Medical History Alcohol abuse Alcohol intoxication Anxiety with depression Hepatic steatosis No pertinent family history PTSD (post-traumatic stress disorder) Surgical History Previous section Social History Smoking Status: Never smoker Second Hand Exposure: No; Hx Alcohol Use: Yes Alcohol type: hard liquor Hx Substance Use: Yes Preferred Language: Hebrew Communication Ability: Effective [employer] Required: No Beliefs That Will Affect Care: None marital status: Current Living Situation: Parent Current Living Situation Comment: with son and parents parents watching son How many Children do You have: 1 Feels Safe at Home: Yes Assistive Devices: None Review of Systems Review of Systems: The patient denies chest pain, palpitations, shortness of breath, dyspnea on exertion, cough, lower extremity swelling, sore throat, fevers, chills, vomiting, diarrhea , constipation, abdominal pain, pelvic pain, blood in urine or stool, dysuria, urinary frequency or urgency, memory loss, loss of consciousness, rash, abnormal bruising or bleeding, imbalance, focal or generalized weakness, generalized arthralgias or myalgias, back or neck pain, or night sweats. The review of systems is otherwise negative other than for that already noted above, and at least 10 systems have been reviewed. Physical Exam Physical Exam: The patient is awake, alert and oriented 3, well developed and well nourished, normocephalic and atraumatic, lying in bed and in mild distress secondary to generalized shakes HEENT--PERRL, EOMI, mucous membranes and oropharynx dry. Neck--supple. No JVD. No bruits. Thyroid normal, trachea midline, no adenopathy. Heart--normal S1 and S2. No murmurs, rubs or gallops. Lungs--clear bilaterally, no respiratory distress, no accessory muscle use. Abdomen--normal bowel sounds and soft. Nontender. Nondistended, no hernias or masses, no organomegaly. Extremities--no cyanosis or clubbing. No edema. Dermatologic--normal skin turgor, normal color, no abnormal lymph nodes, no rash. Neurologic--cranial nerves II through XII grossly intact. Rheumatologic--normal range of motion. Psychiatric--mildly anxious, cooperative Results & Data Results & Data ([facility]) Vital Signs (Past 12 Hours) Vital Signs Temp Pulse Resp BP Pulse Ox O2 Del Method 11/27/21 05:30 97 H 15 96 11/27/21 05:00 97 H 17 97 11/27/21 05:00 136/105 H 11/27/21 04:32 95 H 16 98 11/27/21 03:51 36.4 C L 104 H 20 158/102 H 97 Room Air Laboratory Results Laboratory Results WBC 6.76 K/ul (4.8-10.8) 11/27/21 04:10 RBC 3.86 M/uL (3.93-5.22) L 11/27/21 04:10 Hgb 12.5 g/dl (12.0-16.0) 11/27/21 04:10 Hct 35.3 % (34.1-44.9) 11/27/21 04:10 MCV 91.5 fL (80.0-100.0) 11/27/21 04:10 MCH 32.4 pg (25.0-34.0) 11/27/21 04:10 MCHC 35.4 g/dL (32.0-36.0) 11/27/21 04:10 RDW Std Deviation 50.7 fL (36.4-46.3) H 11/27/21 04:10 RDW Coeff of [place] 15.0 % (11.5-14.5) H 11/27/21 04:10 Plt Count 253 K/uL (130-400) 11/27/21 04:10 MPV 9.6 fL (9.4-12.3) 11/27/21 04:10 Immature Gran % (Auto) 0.3 % 11/27/21 04:10 Neut % (Auto) 48.2 % 11/27/21 04:10 Lymph % (Auto) 42.6 % 11/27/21 04:10 [place] % (Auto) 6.5 % 11/27/21 04:10 Eos % (Auto) 1.2 % 11/27/21 04:10 Baso % (Auto) 1.2 % 11/27/21 04:10 Neut # (Auto) 3.26 K/uL (1.4-6.5) 11/27/21 04:10 Lymph # (Auto) 2.88 K/uL (1.2-3.4) 11/27/21 04:10 [place] # (Auto) 0.44 K/uL (0.24-0.82) 11/27/21 04:10 Eos # (Auto) 0.08 K/uL (0-0.50) 11/27/21 04:10 Baso # (Auto) 0.08 K/uL (0-0.2) 11/27/21 04:10 Immature Gran # (Auto) 0.02 K/uL (0.00-0.02) 11/27/21 04:10 PT 10.4 Seconds (9.0-12.0) 11/27/21 04:10 INR 1.0 (0.9-1.1) 11/27/21 04:10 APTT 27.5 Seconds (21.0-31.0) 11/27/21 04:10 PTT Ratio 1.0 11/27/21 04:10 Sodium 136 mmol/L (136-145) 11/27/21 04:10 Potassium 3.0 mmol/L (3.5-5.1) L 11/27/21 04:10 Chloride 97 mmol/L (98-107) L 11/27/21 04:10 Carbon Dioxide 25 mmol/L (21-32) 11/27/21 04:10 Anion Gap 14 (3-11) H 11/27/21 04:10 BUN 6 mg/dl (6-23) 11/27/21 04:10 Creatinine 0.66 mg/dl (0.6-1.2) 11/27/21 04:10 Est Cr Clr Drug Dosing 134.7 ml/min 11/27/21 04:10 Est GFR ( Amer) 130.8 ml/min 11/27/21 04:10 Est GFR (Non-Af Amer) 112.9 ml/min 11/27/21 04:10 BUN/Creatinine Ratio 9.1 (10-20) L 11/27/21 04:10 Glucose 89 mg/dl (70-99(Fasting)) 11/27/21 04:10 Calcium 8.2 mg/dl (8.5-10.1) L 11/27/21 04:10 Magnesium 1.6 mg/dl (1.7-2.4) L 11/27/21 04:10 Total Bilirubin 0.6 mg/dl (0.2-1.0) 11/27/21 04:10 AST 45 U/L (13-39) H 11/27/21 04:10 ALT 24 U/L (7-52) 11/27/21 04:10 Alkaline Phosphatase 48 U/L (34-104) 11/27/21 04:10 Troponin I High Sens 4.0 pg/ml (0-14) 11/27/21 04:10 Total Protein 6.6 gm/dl (6.0-8.3) 11/27/21 04:10 Albumin 4.1 gm/dl (3.4-5.0) 11/27/21 04:10 Globulin 2.5 gm/dl (2.5-4.0) 11/27/21 04:10 Albumin/Globulin Ratio 1.6 (0.9-2) 11/27/21 04:10 Lipase 45 U/L (11-82) 11/27/21 04:10 TSH 3.207 uIu/ml (0.300-4.500) 11/27/21 04:10 HCG, Qual Negative (Negative) 11/27/21 04:10 Urine Color Yellow 11/27/21 04:10 Urine Appearance Cloudy (Clear) A 11/27/21 04:10 Urine pH 7.5 (4.5-7.5) 11/27/21 04:10 Ur Specific [place] 1.010 (1.000-1.030) 11/27/21 04:10 Urine Protein Negative (Negative) 11/27/21 04:10 Urine Glucose (UA) Negative (Negative) 11/27/21 04:10 Urine Ketones Negative (Negative) 11/27/21 04:10 Urine Blood Negative (Negative) 11/27/21 04:10 Urine Nitrite Negative (Negative) 11/27/21 04:10 Urine Bilirubin Negative (Negative) 11/27/21 04:10 Urine Urobilinogen Negative (Negative) 11/27/21 04:10 Ur Leukocyte Esterase Negative (Negative) 11/27/21 04:10 Urine WBC (Auto) 1-5 /hpf (0-5) 11/27/21 04:10 Urine RBC (Auto) 0-4 /hpf (0-4) 11/27/21 04:10 U Hyaline Cast (Auto) 0 /lpf (0-5) 11/27/21 04:10 U Epithel Cells (Auto) >30 /lpf (0-5) H 11/27/21 04:10 Urine Bacteria (Auto) Negative (Negative) 11/27/21 04:10 Ethyl Alcohol mg/dL 80.7 mg/dl (<10.0) H 11/27/21 04:10 Code Status & VTE Plan Code Status Full code VTE Prophylaxis Plan VTE Prophylaxis will be ordered: Yes PG Care Time/CCT Total # of Minutes Spent Total Time Spent with Patient: Total time spent is greater than 50% in coordination of care (as documented) at patient's floor/unit and/or counseling patient: Coding Level of Care Code 32755 Initial Inpt Care Lvl 3 Diagnoses Alcohol withdrawal F10.230 Complication of substance-induced condition: uncomplicated Alcohol dependence F10.220 Substance use status: with intoxication Complication of substance-induced condition: uncomplicated Alcohol abuse F10.10 Hypokalemia E87.6 Hypomagnesemia E83.42 PTSD (post-traumatic stress disorder) F43.10 Anxiety with depression F41.8 Transaminitis R74.01 Reflux gastritis K29.60 (1) Alcohol dependence Substance use status: with intoxication Complication of substance-induced condition: uncomplicated Qualified Code(s): F10.220 - Alcohol dependence with intoxication, uncomplicated (2) Alcohol withdrawal Complication of substance-induced condition: uncomplicated Qualified Code(s): F10.230 - Alcohol dependence with withdrawal, uncomplicated
[2021-11-27] MEDS ORDERED: MAGNESIUM SULFATE 1GM / D5W BAG IV ONE (06:23)
[2021-11-27] MEDS: MAGNESIUM SULFATE / D5W 1 GM/100 ML BAG IV SCH ×3 (06:38→08:33)
[2021-11-27] MEDS: FAMOTIDINE 20 MG in SYRINGE 3 ML IV SCH ×2 (06:38→20:39)
--- NOTE | 2021-11-27 06:54 | Emergency Department Note ---
History of Present Illness General Chief complaint: Alcohol Withdrawal Stated complaint: ALCOHOL WITHDRAWL, CHEST PAIN Time Seen by Provider: 11/27/21 04:00 History of Present Illness Maximum Pain Intensity: 8 This 36-year-old female patient with significant past medical history of alcoho lisheidi presents to the emergency department today for evaluation of alcohol withdrawal. The patient states that she went to [facility] and was locked in her room and told to wait it out. She started experiencing some shakiness and states she felt uncomfortable so she had her mother pick her up and bring her to the emergency department. Patient states she normally drinks about 1/5 of vodka daily. Her last drink was about noon yesterday. She denies any vomiting. There has been nausea. She does report a history of seizure, but states it has been "greater than a year" since her last seizure. Patient rates her generalized pain 8/10. She denies any specific abdominal pain or chest pain. No shortness of breath. No fever or recent illness. Home Medications Medication Instructions Recorded Confirmed Type gabapentin 300 mg capsule 300 mg PO TID 05/27/18 06/08/21 History hydroxyzine pamoate 50 mg capsule 50 mg PO TID 05/27/18 06/08/21 History (Vistaril) multivitamin 1 tab PO QAM 05/27/18 06/08/21 History linaclotide 145 mcg capsule 145 mcg PO DAILY 07/10/20 06/08/21 History (Linzess) duloxetine 60 mg capsule,delayed 60 mg PO DAILY 08/27/20 06/08/21 History release doxepin 100 mg capsule 100 mg PO HS 05/19/21 06/08/21 History lorazepam 0.5 mg tablet (Ativan) 0.5 mg PO BID PRN Anxiety 06/08/21 06/08/21 History prazosin 1 mg capsule 3 mg PO HS 06/08/21 06/08/21 History chlordiazepoxide HCl 10 mg capsule 10 mg PO Q12H #2 caps 08/28/21 Rx chlordiazepoxide HCl 25 mg capsule 25 mg PO Q8H #3 caps 08/28/21 Rx chlordiazepoxide HCl 25 mg capsule 50 mg PO Q8H #6 caps 08/28/21 Rx folic acid 1 mg tablet 1,000 mcg PO DAILY #30 tabs 08/28/21 Rx pantoprazole 40 mg tablet,delayed 40 mg PO BID #60 tabs 08/28/21 Rx release thiamine HCl (vitamin B1) 100 mg 100 mg PO DAILY #30 tabs 08/28/21 Rx tablet Allergies Allergy/AdvReac Type Severity Reaction Status Date / Time No Known Allergies Allergy Verified 06/08/21 16:41 Past Med/Surg History Medical History Alcohol abuse Alcohol intoxication Anxiety with depression Hepatic steatosis No pertinent family history PTSD (post-traumatic stress disorder) Surgical History Previous section Social History Smoking Status: Never smoker Second Hand Exposure: No; Hx Alcohol Use: Yes Alcohol type: hard liquor Hx Substance Use: Yes Preferred Language: Israeli Communication Ability: Effective Wheel Truer Required: No Beliefs That Will Affect Care: None marital status: Current Living Situation: Parent Current Living Situation Comment: with son and parents parents watching son How many Children do You have: 1 Feels Safe at Home: Yes Assistive Devices: None Review of Systems A total of 10 systems reviewed and were otherwise negative Physical Exam Vital Signs Vital Signs - 24 hr 11/27/21 03:51 11/27/21 04:32 11/27/21 05:00 Temperature 36.4 C L Temperature Source Temporal Artery Scan Pulse Rate 104 H 95 H Pulse Rate from SpO2 Sensor 97 H Respiratory Rate 20 16 Respiratory Depth Normal Blood Pressure 158/102 H 136/105 H Blood Pressure Mean 120 115 Pulse Oximetry 97 98 Oxygen Delivery Method Room Air Sepsis New/Unexplained Change in Mental Status N/A Sepsis Action Taken by Nursing No Action Required 11/27/21 05:00 11/27/21 05:30 11/27/21 05:30 Temperature Temperature Source Pulse Rate 97 H 97 H Pulse Rate from SpO2 Sensor 98 H 99 H Respiratory Rate 17 15 Respiratory Depth Blood Pressure 135/101 H Blood Pressure Mean 112 Pulse Oximetry 97 96 Oxygen Delivery Method Sepsis New/Unexplained Change in Mental Status Sepsis Action Taken by Nursing 11/27/21 06:00 11/27/21 06:00 11/27/21 06:30 Temperature Temperature Source Pulse Rate 93 H Pulse Rate from SpO2 Sensor 93 H Respiratory Rate 17 Respiratory Depth Blood Pressure 122/82 129/107 H Blood Pressure Mean 95 114 Pulse Oximetry 99 Oxygen Delivery Method Sepsis New/Unexplained Change in Mental Status Sepsis Action Taken by Nursing 11/27/21 06:30 Temperature Temperature Source Pulse Rate 98 H Pulse Rate from SpO2 Sensor 99 H Respiratory Rate 16 Respiratory Depth Blood Pressure Blood Pressure Mean Pulse Oximetry 98 Oxygen Delivery Method Sepsis New/Unexplained Change in Mental Status Sepsis Action Taken by Nursing VITALS: Vitals are noted on the nurse's note and reviewed by myself. Vital signs stable. GENERAL: This is a 36-year-old white female patient, in no acute distress, nondiaphoretic, well-developed well-nourished. Patient has some general shaking, but no specific DTs or seizures. SKIN: The skin was without rashes, erythema, edema, or bruising. There is no tenting of the skin. Capillary refill less than 2 seconds. HEAD: Normocephalic atraumatic. EYES: Conjunctivae without injection, sclerae without icterus. NECK: Supple without nuchal rigidity. No lymphadenopathy. No JVD. HEART: Regular rate and rhythm without murmurs gallops or rubs. LUNGS: Clear to auscultation bilaterally without wheezes, rales or rhonchi. No retractions or accessory muscle use. ABDOMEN: Positive bowel sounds x 4. Soft, nontender, without masses or organomegaly. Lezama sign negative. No guarding or rebound tenderness. MUSCULOSKELETAL: No muscle atrophy, erythema, or edema noted. Full range of motion without joint tenderness in all extremities. No tenderness to palpation. Normal gait. Strength 5/5 throughout. NEURO: Patient was alert and oriented to person place and time. No focal neurological deficits. Course Course The patient was seen and evaluated as above. An order was placed for continuous cardiac monitoring. The monitor shows a normal sinus rhythm at a rate of 98 bpm. IV access obtained, labs drawn. Patient medicated with banana bag, lorazepam, Librium Labs reviewed by myself. I discussed the findings with the patient at bedside. She is feeling somewhat better but still complaining of shakiness. She does not feel comfortable going home and would prefer to be admitted for her symptoms. I discussed the case with my attending. I discussed the case with Dr. Lao. He did agree to see and evaluate the patient for admission. Administered Medications Magnesium Sulfate/Dextrose (Magnesium Sulfate / D5w) 1 gm in 100 mls @ 50 mls/hr IV Q2H JOSE F Stop: 11/27/21 12:29 Last Admin: 11/27/21 06:38 Dose: 50 mls/hr Documented By: DAVID Famotidine 20 mg/ Syringe 5 mls @ 2.5 mls/min IV Q12H JOSE F Stop: 12/27/21 08:59 Last Admin: 11/27/21 06:38 Dose: 2.5 mls/min Documented By: DAVID Discontinued Medications Chlordiazepoxide HCl (Chlordiazepoxide Hcl 25 Mg Cap) 50 mg PO NOW ONE Stop: 11/27/21 04:14 Last Admin: 11/27/21 04:33 Dose: 50 mg Documented By: DAVID Multivitamins 10 ml/ Thiamine HCl 100 mg/ Folic Acid 1 mg/Sodium Chloride 1,011.2 mls @ 1,011.2 mls/hr IV .Q1H ONE Stop: 11/27/21 05:03 Last Infusion: 11/27/21 06:30 Dose: 0 mls/hr Documented By: Admin: 11/27/21 05:13 Dose: 1,011.2 mls/hr Documented By: KARLO Lorazepam (Lorazepam 2 Mg/1 Ml Vial) 1 mg IV NOW STA; Protocol Stop: 11/27/21 04:14 Last Admin: 11/27/21 04:33 Dose: 1 mg Documented By: DAVID Lorazepam (Lorazepam 2 Mg/1 Ml Vial) 1 mg IV NOW STA; Protocol Stop: 11/27/21 05:29 Last Admin: 11/27/21 05:37 Dose: 1 mg Documented By: DAVID Magnesium Sulfate/Dextrose (Magnesium Sulfate 1gm / D5w Bag) Confirm Administered Dose 3 gm IV .STK-MED ONE Stop: 11/27/21 06:24 Last Admin: 11/27/21 06:25 Dose: Not Given Documented By: DAVID Potassium Chloride (Potassium Chloride Crtab 20 Meq Tabcr) 40 meq PO NOW STA Stop: 11/27/21 06:01 Last Admin: 11/27/21 06:25 Dose: 40 meq Documented By: DAVID Medical Decision Making Differential Diagnosis Overdose, toxicologic, infection, hypoglycemia, electrolyte abnormalities, cardiac sources, intracerebral event, neurologic, trauma, as well as other pathologies. Medical Records Attestation: I reviewed the patient's medical records. Home Medications Current Medication List: was personally reviewed by me Laboratory Data Attestation: I reviewed the patient's lab results. No leukocytosis, anemia, thrombocytopenia. Renal, hepatic function, and electrolytes without significant abnormality, however potassium 3.0, magnesium 1.6. Lipase 45. Alcohol elevated at 80. hCG negative. COVID-19 testing negative. Urinalysis negative for evidence of infection. Result diagrams: 11/27/21 04:10 11/27/21 04:10 Lab Results 11/27/21 11/27/21 11/27/21 Range/Units 04:10 04:10 04:10 WBC 6.76 (4.8-10.8) K/ul RBC 3.86 L (3.93-5.22) M/uL Hgb 12.5 (12.0-16.0) g/dl Hct 35.3 (34.1-44.9) % MCV 91.5 (80.0-100.0) fL MCH 32.4 (25.0-34.0) pg MCHC 35.4 (32.0-36.0) g/dL RDW Std Deviation 50.7 H (36.4-46.3) fL RDW Coeff of [place] 15.0 H (11.5-14.5) % Plt Count 253 (130-400) K/uL MPV 9.6 (9.4-12.3) fL Immature Gran % (Auto) 0.3 % Neut % (Auto) 48.2 % Lymph % (Auto) 42.6 % [place] % (Auto) 6.5 % Eos % (Auto) 1.2 % Baso % (Auto) 1.2 % Neut # (Auto) 3.26 (1.4-6.5) K/uL Lymph # (Auto) 2.88 (1.2-3.4) K/uL [place] # (Auto) 0.44 (0.24-0.82) K/uL Eos # (Auto) 0.08 (0-0.50) K/uL Baso # (Auto) 0.08 (0-0.2) K/uL Immature Gran # (Auto) 0.02 (0.00-0.02) K/uL PT (9.0-12.0) Seconds INR (0.9-1.1) APTT (21.0-31.0) Seconds PTT Ratio Sodium 136 (136-145) mmol/L Potassium 3.0 L (3.5-5.1) mmol/L Chloride 97 L (98-107) mmol/L Carbon Dioxide 25 (21-32) mmol/L Anion Gap 14 H (3-11) BUN 6 (6-23) mg/dl Creatinine 0.66 (0.6-1.2) mg/dl Est Cr Clr Drug Dosing 134.7 ml/min Est GFR ( Amer) 130.8 ml/min Est GFR (Non-Af Amer) 112.9 ml/min BUN/Creatinine Ratio 9.1 L (10-20) Glucose 89 (70-99(Fasting)) mg/dl Calcium 8.2 L (8.5-10.1) mg/dl Magnesium 1.6 L (1.7-2.4) mg/dl Total Bilirubin 0.6 (0.2-1.0) mg/dl AST 45 H (13-39) U/L ALT 24 (7-52) U/L Alkaline Phosphatase 48 (34-104) U/L Troponin I High Sens 4.0 (0-14) pg/ml Total Protein 6.6 (6.0-8.3) gm/dl Albumin 4.1 (3.4-5.0) gm/dl Globulin 2.5 (2.5-4.0) gm/dl Albumin/Globulin Ratio 1.6 (0.9-2) Lipase 45 (11-82) U/L TSH (0.300-4.500) uIu/ml HCG, Qual (Negative) Urine Color Urine Appearance (Clear) Urine pH (4.5-7.5) Ur Specific [place] (1.000-1.030) Urine Protein (Negative) Urine Glucose (UA) (Negative) Urine Ketones (Negative) Urine Blood (Negative) Urine Nitrite (Negative) Urine Bilirubin (Negative) Urine Urobilinogen (Negative) Ur Leukocyte Esterase (Negative) Urine WBC (Auto) (0-5) /hpf Urine RBC (Auto) (0-4) /hpf U Hyaline Cast (Auto) (0-5) /lpf U Epithel Cells (Auto) (0-5) /lpf Urine Bacteria (Auto) (Negative) Ethyl Alcohol mg/dL 80.7 H (<10.0) mg/dl SARS-CoV-2, RNA, NAAT (NEGATIVE) 11/27/21 11/27/21 11/27/21 Range/Units 04:10 04:10 04:10 WBC (4.8-10.8) K/ul RBC (3.93-5.22) M/uL Hgb (12.0-16.0) g/dl Hct (34.1-44.9) % MCV (80.0-100.0) fL MCH (25.0-34.0) pg MCHC (32.0-36.0) g/dL RDW Std Deviation (36.4-46.3) fL RDW Coeff of Dall[place] (11.5-14.5) % Plt Count (130-400) K/uL MPV (9.4-12.3) fL Immature Gran % (Auto) % Neut % (Auto) % Lymph % (Auto) % [place] % (Auto) % Eos % (Auto) % Baso % (Auto) % Neut # (Auto) (1.4-6.5) K/uL Lymph # (Auto) (1.2-3.4) K/uL [place] # (Auto) (0.24-0.82) K/uL Eos # (Auto) (0-0.50) K/uL Baso # (Auto) (0-0.2) K/uL Immature Gran # (Auto) (0.00-0.02) K/uL PT 10.4 (9.0-12.0) Seconds INR 1.0 (0.9-1.1) APTT 27.5 (21.0-31.0) Seconds PTT Ratio 1.0 Sodium (136-145) mmol/L Potassium (3.5-5.1) mmol/L Chloride (98-107) mmol/L Carbon Dioxide (21-32) mmol/L Anion Gap (3-11) BUN (6-23) mg/dl Creatinine (0.6-1.2) mg/dl Est Cr Clr Drug Dosing ml/min Est GFR ( Amer) ml/min Est GFR (Non-Af Amer) ml/min BUN/Creatinine Ratio (10-20) Glucose (70-99(Fasting)) mg/dl Calcium (8.5-10.1) mg/dl Magnesium (1.7-2.4) mg/dl Total Bilirubin (0.2-1.0) mg/dl AST (13-39) U/L ALT (7-52) U/L Alkaline Phosphatase (34-104) U/L Troponin I High Sens (0-14) pg/ml Total Protein (6.0-8.3) gm/dl Albumin (3.4-5.0) gm/dl Globulin (2.5-4.0) gm/dl Albumin/Globulin Ratio (0.9-2) Lipase (11-82) U/L TSH 3.207 (0.300-4.500) uIu/ml HCG, Qual (Negative) Urine Color Yellow Urine Appearance Cloudy A (Clear) Urine pH 7.5 (4.5-7.5) Ur Specific [place] 1.010 (1.000-1.030) Urine Protein Negative (Negative) Urine Glucose (UA) Negative (Negative) Urine Ketones Negative (Negative) Urine Blood Negative (Negative) Urine Nitrite Negative (Negative) Urine Bilirubin Negative (Negative) Urine Urobilinogen Negative (Negative) Ur Leukocyte Esterase Negative (Negative) Urine WBC (Auto) 1-5 (0-5) /hpf Urine RBC (Auto) 0-4 (0-4) /hpf U Hyaline Cast (Auto) 0 (0-5) /lpf U Epithel Cells (Auto) >30 H (0-5) /lpf Urine Bacteria (Auto) Negative (Negative) Ethyl Alcohol mg/dL (<10.0) mg/dl SARS-CoV-2, RNA, NAAT (NEGATIVE) 11/27/21 11/27/21 Range/Units 04:10 05:30 WBC (4.8-10.8) K/ul RBC (3.93-5.22) M/uL Hgb (12.0-16.0) g/dl Hct (34.1-44.9) % MCV (80.0-100.0) fL MCH (25.0-34.0) pg MCHC (32.0-36.0) g/dL RDW Std Deviation (36.4-46.3) fL RDW Coeff of Dallin (11.5-14.5) % Plt Count (130-400) K/uL MPV (9.4-12.3) fL Immature Gran % (Auto) % Neut % (Auto) % Lymph % (Auto) % [place] % (Auto) % Eos % (Auto) % Baso % (Auto) % Neut # (Auto) (1.4-6.5) K/uL Lymph # (Auto) (1.2-3.4) K/uL [place] # (Auto) (0.24-0.82) K/uL Eos # (Auto) (0-0.50) K/uL Baso # (Auto) (0-0.2) K/uL Immature Gran # (Auto) (0.00-0.02) K/uL PT (9.0-12.0) Seconds INR (0.9-1.1) APTT (21.0-31.0) Seconds PTT Ratio Sodium (136-145) mmol/L Potassium (3.5-5.1) mmol/L Chloride (98-107) mmol/L Carbon Dioxide (21-32) mmol/L Anion Gap (3-11) BUN (6-23) mg/dl Creatinine (0.6-1.2) mg/dl Est Cr Clr Drug Dosing ml/min Est GFR ( Amer) ml/min Est GFR (Non-Af Amer) ml/min BUN/Creatinine Ratio (10-20) Glucose (70-99(Fasting)) mg/dl Calcium (8.5-10.1) mg/dl Magnesium (1.7-2.4) mg/dl Total Bilirubin (0.2-1.0) mg/dl AST (13-39) U/L ALT (7-52) U/L Alkaline Phosphatase (34-104) U/L Troponin I High Sens (0-14) pg/ml Total Protein (6.0-8.3) gm/dl Albumin (3.4-5.0) gm/dl Globulin (2.5-4.0) gm/dl Albumin/Globulin Ratio (0.9-2) Lipase (11-82) U/L TSH (0.300-4.500) uIu/ml HCG, Qual Negative (Negative) Urine Color Urine Appearance (Clear) Urine pH (4.5-7.5) Ur Specific [place] (1.000-1.030) Urine Protein (Negative) Urine Glucose (UA) (Negative) Urine Ketones (Negative) Urine Blood (Negative) Urine Nitrite (Negative) Urine Bilirubin (Negative) Urine Urobilinogen (Negative) Ur Leukocyte Esterase (Negative) Urine WBC (Auto) (0-5) /hpf Urine RBC (Auto) (0-4) /hpf U Hyaline Cast (Auto) (0-5) /lpf U Epithel Cells (Auto) (0-5) /lpf Urine Bacteria (Auto) (Negative) Ethyl Alcohol mg/dL (<10.0) mg/dl SARS-CoV-2, RNA, NAAT NEGATIVE (NEGATIVE) ECG Data Attestation: I personally reviewed and interpreted this ECG as follows: Indication: + chest pain Rate (beats per minute): 93 Rhythm: + normal sinus ECG Intervals/blocks: + Short KS (106) ECG [place]: + Normal ECG ST segments: no ST depression, no ST elevation or no T-wave inversions Comparison ECG Date: no prior available Blood Pressure Blood Pressure Findings: Elevated blood pressure Blood Pressure Disposition: further management by hospitalist MDM Narrative This 36-year-old female patient presents to the emergency department today for evaluation of alcohol withdrawal. Patient has history of similar symptoms. She tried going to rehab yesterday but was uncomfortable with their management of her acute withdrawal. She decided to come to the emergency department instead. Work-up here in the ED as above. Patient is uncomfortable managing her symptoms at home. We discussed the use of Librium. She would prefer to stay hospitalized due to her history of seizures. I did discuss the case with the [facility] hospitalist physician. He did agree to see the patient for admission. Please see hospitalist dictation regarding ongoing management care of this patient. The chart was completed utilizing [employer] Speech voice recognition software. Grammatical errors, random word insertions, pronoun errors, and incomplete sentences are an occasional consequence of this system due to software limitations, ambient noise, and hardware issues. Any formal questions or c oncerns about the content, text, or information contained within the body of this dictation should be directly addressed to the provider for clarification. Impression & Plan Alcohol withdrawal, Hypomagnesemia Discharge Plan Visit Data Chief Complaint: Alcohol Withdrawal Stated Complaint: ALCOHOL WITHDRAWL, CHEST PAIN ED Provider: Greenhurst,Favian M. ED Midlevel Provider: Christina Davila Discharge Problem: Alcohol withdrawal, Hypomagnesemia Patient Disposition: Admitted As Inpatient Forms Stand Alone Forms: [facility], Suicide Prevention Resources, Virtual Emergency Department, Important Visit Information Prescriptions Prescriptions: No Action multivitamin Tablet 1 tab PO QAM hydroxyzine pamoate [Vistaril] 50 mg Capsule 50 mg PO TID gabapentin 300 mg capsule 300 mg PO TID Linzess 145 mcg capsule 145 mcg PO DAILY prazosin 1 mg capsule 3 mg PO HS lorazepam [Ativan] 0.5 mg Tablet 0.5 mg PO BID PRN (Reason: Anxiety) chlordiazepoxide HCl 25 mg Capsule 50 mg PO Q8H Qty: 6 0RF pantoprazole 40 mg Tablet,Delayed Release (Dr/Ec) 40 mg PO BID Qty: 60 0RF chlordiazepoxide HCl 25 mg Capsule 25 mg PO Q8H Qty: 3 0RF chlordiazepoxide HCl 10 mg Capsule 10 mg PO Q12H Qty: 2 0RF folic acid 1 mg tablet 1,000 mcg PO DAILY Qty: 30 0RF thiamine HCl (vitamin B1) 100 mg tablet 100 mg PO DAILY Qty: 30 0RF duloxetine 60 mg capsule,delayed release(DR/EC) 60 mg PO DAILY doxepin 100 mg capsule 100 mg PO HS Referrals Referrals: PCP,NO [Primary Care Provider] -
--- NOTE | 2021-11-27 07:31 | Hospitalist Progress Note ---
Date of Service November 27, 2021 Assessment & Plan (1) Alcohol withdrawal: Plan: Alcohol withdrawal/alcohol dependence/alcohol abuse- Several previous admissions for same Admit to monitored bed Continue her usual regimen of doxepin, duloxetine, folic acid, hydroxyzine and prazosin librium 50 mg tid and gabapentin high dose Placed on AWSS protocol with IV Ativan Thiamine 100 mg p.o. daily Folic acid 1 mg p.o. daily Multivitamin 1 p.o. daily (2) Alcohol dependence: Plan: See above (3) Alcohol abuse: Plan: See above (4) Hypokalemia: Plan: replete banana bag NSS + KCl 20 mEq at 125 mils per hour following banana bag (5) Hypomagnesemia: Plan: Magnesium 1.6 upon admission Give mag sulfate 2 g IV, and repeat in a.m. (6) PTSD (post-traumatic stress disorder): Plan: PTSD/anxiety depression/recent miscarriage- Continue doxepin, duloxetine, gabapentin, prazosin (7) Anxiety with depression: Plan: See above (8) Transaminitis: Plan: History of more significant transaminitis at the previous admissions. AST mildly elevated at 45, (9) Reflux gastritis: Plan: Continue pantoprazole 40 mg p.o. twice daily Famotidine 20 mg IV every 12 hours Subjective pt was seen in the ER , is tremulous and shakey with hypertension Review of Systems Review of Systems: Mild distress and fatigue no headache, no visual changes no speech or swallowing issues no chest pain, pressure or palpitations no shortness of breath, cough or wheezes no abdominal pain, nausea or vomiting, diarrhea or constipation no dysuria, hematuria or frequency no focal joint pain or swelling no back pain, CVA tenderness or radicular pain no bruising, bleeding or rashes no focal signs of weakness or numbness or altered sensation, is tremulous admits to alcohol abuse, and relapse Physical Exam Physical Exam: The patient appeared stable Vital signs as documented. Lungs are clear to auscultation and appear unlabored Cardiac exam, Rhythm is regular.. No murmurs, rubs or gallops. Abdominal exam reveals normal bowel sounds, soft non tender, no masses Extremities are nonedematous and both pedal pulses are normal. Neurologic exam is alert and oriented, no focal loss of strength or sensation Skin is without bruises or rashes Psychologically is with concerns for alcohol withdrawal Results & Data Results & Data ([facility]) Vital Signs (Past 12 Hours) Vital Signs Temp Pulse Resp BP Pulse Ox O2 Del Method 11/27/21 06:30 98 H 16 98 11/27/21 06:30 129/107 H 11/27/21 06:00 93 H 17 99 11/27/21 06:00 122/82 11/27/21 05:30 135/101 H 11/27/21 05:30 97 H 15 96 11/27/21 05:00 97 H 17 97 11/27/21 05:00 136/105 H 11/27/21 04:32 95 H 16 98 11/27/21 03:51 97.5 F L 104 H 20 158/102 H 97 Room Air PG Care Time/CCT Total # of Minutes Spent Total Time Spent with Patient: Total time spent is greater than 50% in coordination of care (as documented) at patient's floor/unit and/or counseling patient: Coding Level of Care Code None Diagnoses Alcohol withdrawal F10.239 Alcohol dependence F10.220 Complication of substance-induced condition: uncomplicated Substance use status: with intoxication Alcohol abuse F10.10 Hypokalemia E87.6 Hypomagnesemia E83.42 PTSD (post-traumatic stress disorder) F43.10 Anxiety with depression F41.8 Transaminitis R74.01 Reflux gastritis K29.60 (1) Alcohol dependence Complication of substance-induced condition: uncomplicated Substance use status: with intoxication Qualified Code(s): F10.220 - Alcohol dependence with intoxication, uncomplicated
[2021-11-27] MEDS: LORazepam 1 MG in SYRINGE 0.5 ML IV PRN ×4 (08:38→11:16)
[2021-11-27] MEDS ORDERED: LORazepam 1 MG in SYRINGE 0.5 ML IV ONE (10:00)
[2021-11-27] MEDS ORDERED: LORazepam 1 MG in SYRINGE 0.5 ML IV PRN (10:34)
[2021-11-27] MEDS ORDERED: LORazepam 3 MG in SYRINGE 1.5 ML IV PRN (10:34)
[2021-11-27] MEDS ORDERED: Ativan IV Alcohol Withdrawal--Active Protocol IV PRN (10:34)
[2021-11-27] MEDS ORDERED: GABAPENTIN 600 MG TAB PO ONE (10:34)
[2021-11-27] MEDS ORDERED: GABAPENTIN 1200MG ALCOHOL WITHDRAWAL LOAD PO STA (10:34)
[2021-11-27] MEDS ORDERED: LORazepam 2 MG in SYRINGE 1 ML IV PRN (10:34)
[2021-11-27] MEDS ORDERED: ONDANSETRON INJ 2 MG/ML 2 ML VIAL IV PRN (10:34)
[2021-11-27] MEDS ORDERED: THIAMINE HCL 100 MG TAB PO SCH (11:00)
[2021-11-27] MEDS: PANTOprazole 40 MG TAB PO SCH ×2 (11:15→20:34)
[2021-11-27] MEDS: MULTIVITAMIN TAB PO SCH (11:15)
[2021-11-27] MEDS: NSS + 20MEQ KCL 20 MEQ/1,000 ML BAG IV SCH ×2 (11:18→20:28)
--- NOTE | 2021-11-27 11:50 | Ultrasound Report ---
US renal/blad retro comp CLINICAL HISTORY: left lower abdominalpain TECHNIQUE: Multiple sonographic real-time images of the kidneys and bladder were obtained. COMPARISON: None available at the time of this dictation. FINDINGS: The right kidney measures 10.0 cm in length, and the left kidney measures 11.9 cm in length. The left lower pole was not well seen due to overlying bowel. The right kidney is normal in size, contour, cortical thickness, and echogenicity. No hydronephrosis is identified. No renal lesion is identified. No perinephric fluid collection is seen. The left kidney is normal in size, contour, cortical thickness and echogenicity. No hydronephrosis i s identified. No renal lesion is identified. No perinephric fluid collection is seen. The bladder is partially distended. No large intraluminal mass is seen. IMPRESSION: Unremarkable renal ultrasound. ACT 112: Negative or not required by law. Electronically signed by: Lester Johnson M.D. 11/27/2021 11:49 AM
[2021-11-27] MEDS: hydrOXYzine HCl 25 MG TAB PO SCH ×3 (12:10→22:38)
[2021-11-27] MEDS: chlordiazePOXIDE HCl 25 MG CAP PO SCH ×2 (12:10→20:32)
[2021-11-27] MEDS: FOLIC ACID 1 MG TAB PO SCH (12:10)
[2021-11-27] MEDS: DULoxetine HCL 60 MG CAP PO SCH (12:10)
[2021-11-27 14:18] LABS: Pregnancy Test, Urine Negative (Negative)
--- NOTE | 2021-11-27 14:28 | Electrocardiogram Report ---
Test Reason : Blood Pressure : / mmHG Vent. Rate : 093 BPM Atrial Rate : 093 BPM P-R Int : 136 ms QRS Dur : 080 ms QT Int : 414 ms P-R-T Axes : 006 036 -16 degrees QTc Int : 514 ms Sinus rhythm Nonspecific T wave abnormality Prolonged QT Abnormal ECG When compared with ECG of 28-AUG-2021 06:12, No significant change was found Confirmed by Enoc Lomax ([id number]) on 11/27/2021 2:28:15 PM Referred By: REFERRED SELF Confirmed By:Enoc Lomax
[2021-11-27] MEDS: GABAPENTIN 600 MG TAB PO SCH (17:48)
[2021-11-27] MEDS: DOXEPIN HCL 50 MG CAPSULE PO SCH (20:33)
[2021-11-27] MEDS: PRAZOSIN HCL 1 MG CAP PO SCH (20:35)
[2021-11-28] MEDS: GABAPENTIN 600 MG TAB PO SCH ×4 (00:15→23:09)
[2021-11-28] MEDS: NSS + 20MEQ KCL 20 MEQ/1,000 ML BAG IV SCH ×3 (04:53→23:09)
[2021-11-28] MEDS: chlordiazePOXIDE HCl 25 MG CAP PO SCH ×3 (04:54→19:57)
[2021-11-28 06:21] LABS: Hematocrit (blood only) 34.3 % (34.1-44.9); Hemoglobin 11.7 g/dl (12.0-16.0); Mean Corpuscular Hemoglobin 32.1 pg (25.0-34.0); Mean Corpuscular Hgb Conc 34.1 g/dL (32.0-36.0); Mean Corpuscular Volume 94.2 fL (80.0-100.0); Mean Platelet Volume 10.3 fL (9.4-12.3); Platelet Count 187 K/uL (130-400); RDW Coefficient of Variation 15.3 % (11.5-14.5); RDW Standard Deviation 53.1 fL (36.4-46.3); Red Blood Count 3.64 M/uL (3.93-5.22); White Blood Count 4.12 K/ul (4.8-10.8)
[2021-11-28 07:01] LABS: Albumin Globulin Ratio 1.6 (0.9-2); Albumin Level 3.5 gm/dl (3.4-5.0); BUN Creatinine Ratio 6.6 (10-20); Bilirubin,Total 1.3 mg/dl (0.2-1.0); Calcium 7.5 mg/dl (8.5-10.1); Creatinine Clr Calc Pharmacy 145.7 ml/min; Est GFR (African American) 134.2 ml/min; Est GFR (Non-African American) 115.8 ml/min; Globulin 2.2 gm/dl (2.5-4.0); Potassium 4.2 mmol/L (3.5-5.1); Total Protein 5.7 gm/dl (6.0-8.3)
[2021-11-28 07:22] LABS: Basophils # (auto) 0.03 K/uL (0-0.2); Basophils % (auto) 0.7 %; Eosinophils # (auto) 0.21 K/uL (0-0.50); Eosinophils % (auto) 5.1 %; Immature Granulocytes # (auto) 0.01 K/uL (0.00-0.02); Immature Granulocytes % (auto) 0.2 %; Lymphocytes # (auto) 2.12 K/uL (1.2-3.4); Lymphocytes % (auto) 51.5 %; Monocytes % (auto) 7.3 %; Neutrophils # (auto) 1.45 K/uL (1.4-6.5); Neutrophils % (auto) 35.2 %
[2021-11-28] MEDS: MULTIVITAMIN TAB PO SCH (08:08)
[2021-11-28] MEDS: DULoxetine HCL 60 MG CAP PO SCH (08:08)
[2021-11-28] MEDS: hydrOXYzine HCl 25 MG TAB PO SCH ×3 (08:08→19:59)
[2021-11-28] MEDS: PANTOprazole 40 MG TAB PO SCH ×2 (08:08→19:57)
[2021-11-28] MEDS: FOLIC ACID 1 MG TAB PO SCH (08:08)
[2021-11-28] MEDS: FAMOTIDINE 20 MG in SYRINGE 3 ML IV SCH ×2 (08:12→20:08)
[2021-11-28] MEDS: THIAMINE HCL 500 MG in SODIUM CHLORIDE 0.9% 50 ML IV SCH ×3 (09:00→23:10)
[2021-11-28] MEDS: ACETAMINOPHEN 500 MG TAB PO PRN ×2 (10:31→18:26)
--- NOTE | 2021-11-28 16:37 | XRay Report ---
PA CHEST RADIOGRAPH AND UPRIGHT AND SUPINE AP RADIOGRAPHS OF THE ABDOMEN CLINICAL HISTORY: LLQ abd pain; constipation? COMPARISON STUDY: Chest CT August 27, 2020. CT of the abdomen and pelvis August 27, 2021. FINDINGS: Lung volumes are normal. Lungs are clear. No pneumothorax or pleural effusion. Pulmonary v ascularity is normal. Cardiomediastinal silhouette is unremarkable. There is no free air. Small amoun t of stool is noted. Small and large bowel gas is present. There is no evidence for a bowel obstructi on. No urinary calculi are identified. Colonic air-fluid levels are noted on upright projection. IMPRESSION: 1. No free air or evidence of bowel obstruction. Small amount of stool. 2. No acute cardiopulmonary findings. ACT 112: Negative or not required by law. Electronically signed by: Hung Stubbs M.D. 11/28/2021 4:36 PM
[2021-11-28] MEDS: PRAZOSIN HCL 1 MG CAP PO SCH (19:58)
[2021-11-28] MEDS: DOXEPIN HCL 50 MG CAPSULE PO SCH (19:58)
[2021-11-28] MEDS ORDERED: OPTIRAY 300 100mL IV ONE (22:56)
--- NOTE | 2021-11-28 23:21 | Hospitalist Progress Note ---
Date of Service November 28, 2021 Assessment & Plan (1) Abdominal pain: Plan: LLQ. Present since admission. Added a repeat lipase to labs today - normal. KUB x-ray - no significant stool seen, but air-fluid levels seen in colon. Will obtain CT abd/pelvis with contrast - r/o diverticulitis, r/o kidney stone, etc. Recent renal u/s negative. (2) Alcohol withdrawal: Plan: Remains on librium 50 mg tid and gabapentin taper. Cont AWSS protocol with IV Ativan for symptoms. Increase Thiamine to 500mg TID x 2 days, then reduce to 200mg BID thereafter. Folic acid 1 mg p.o. daily. Multivitamin 1 p.o. daily. (3) Alcohol dependence: Plan: discussed options with her. prefers outpatient counseling. (4) Alcohol abuse: Plan: patient motivated to abstain following her withdrawal period (5) Hypokalemia: Plan: repleted resolved low mag repleted & resolved (6) Hypomagnesemia: Plan: repleted resolved (7) PTSD (post-traumatic stress disorder): Plan: PTSD/OK/depression - Continue doxepin, duloxetine, prazosin (8) Anxiety with depression: Plan: See above (9) Transaminitis: Plan: AST mildly elevated at 45 upon admission Now normal (10) Reflux gastritis: Plan: Continue pantoprazole 40 mg p.o. twice daily Famotidine 20 mg IV every 12 hours Plan cont IV fluids labs in am Admission and Anticipated Discharge Date Admission Date: November 27, 2021 Subjective pt c/o LLQ abd pain present since admission no upper or epigastric pain no stool in 2-3 days no further vomiting eating does not make the pain worse shakes are better today than yesterday we had lengthy discussion about her PTSD and mental health she follows with counselors in the [facility] area (this [place]) we discussed etoh rehab - inpatient and outpatient -- she wishes to continue the latter Review of Systems Review of Systems: gen - no fevers cv - no cp pulm - no cough or dyspnea GI - see HPI - no dysuria neuro - tension headache earlier today relieved with tylenol Physical Exam Physical Exam: gen - NAD, pleasant neuro - tremors of arms/hands; no DTs mouth - MMM heart - RRR, s1 s2 lungs - CTA b/l abd - tender LLQ to palpation, soft otherwise, ND, no peritoneal signs ext - no edema, pulses 2+ b/l psych - a/o x 3, tearful Results & Data Results & Data ([facility]) Vital Signs (Past 12 Hours) Vital Signs Temp Pulse Pulse Resp BP Pulse Ox O2 Del Method 11/28/21 23:14 36.5 C 70 16 121/81 97 Room Air 11/28/21 18:35 36.5 C 77 18 145/96 H 100 Room Air 11/28/21 15:24 36.8 C 79 18 134/91 100 Room Air 11/28/21 14:23 67 11/28/21 12:46 83 16 125/96 100 Room Air Laboratory Results Laboratory Results - last 24 hr 11/28/21 11/28/21 11/28/21 05:39 05:39 05:39 WBC 4.12 L RBC 3.64 L Hgb 11.7 L Hct 34.3 MCV 94.2 MCH 32.1 MCHC 34.1 RDW Std Deviation 53.1 H RDW Coeff of Dall[place] 15.3 H Plt Count 187 MPV 10.3 Immature Gran % (Auto) 0.2 Neut % (Auto) 35.2 Lymph % (Auto) 51.5 [place] % (Auto) 7.3 Eos % (Auto) 5.1 Baso % (Auto) 0.7 Neut # (Auto) 1.45 Lymph # (Auto) 2.12 [place] # (Auto) 0.30 Eos # (Auto) 0.21 Baso # (Auto) 0.03 Immature Gran # (Auto) 0.01 Sodium 136 Potassium 4.2 D Chloride 105 Carbon Dioxide 26 Anion Gap 5 BUN 4 L Creatinine 0.61 Est Cr Clr Drug Dosing 145.7 Est GFR ( Amer) 134.2 Est GFR (Non-Af Amer) 115.8 BUN/Creatinine Ratio 6.6 L Glucose 73 Calcium 7.5 L Magnesium 2.0 Total Bilirubin 1.3 H D AST 36 ALT 19 Alkaline Phosphatase 51 Total Protein 5.7 L Albumin 3.5 Globulin 2.2 L Albumin/Globulin Ratio 1.6 Lipase 21 PG Care Time/CCT Total # of Minutes Spent Total Time Spent with Patient: Total time spent is greater than 50% in coordination of care (as documented) at patient's floor/unit and/or counseling patient: Coding Level of Care Code 29288 Subseq Hosp Care Lvl 2 Diagnoses Abdominal pain R10.10 Abdominal location: upper abdomen, unspecified Alcohol withdrawal F10.239 Alcohol dependence F10.220 Complication of substance-induced condition: uncomplicated Substance use status: with intoxication Alcohol abuse F10.10 Hypokalemia E87.6 Hypomagnesemia E83.42 PTSD (post-traumatic stress disorder) F43.10 Anxiety with depression F41.8 Transaminitis R74.01 Reflux gastritis K29.60 (1) Alcohol dependence Complication of substance-induced condition: uncomplicated Substance use status: with intoxication Qualified Code(s): F10.220 - Alcohol dependence with intoxication, uncomplicated (2) Abdominal pain Abdominal location: upper abdomen, unspecified Qualified Code(s): R10.10 - Upper abdominal pain, unspecified
[2021-11-29] MEDS: chlordiazePOXIDE HCl 25 MG CAP PO SCH ×3 (04:06→20:53)
[2021-11-29 06:48] LABS: Basophils # (auto) 0.03 K/uL (0-0.2); Basophils % (auto) 0.6 %; Eosinophils # (auto) 0.37 K/uL (0-0.50); Hematocrit (blood only) 33.3 % (34.1-44.9); Hemoglobin 11.4 g/dl (12.0-16.0); Immature Granulocytes # (auto) 0.01 K/uL (0.00-0.02); Immature Granulocytes % (auto) 0.2 %; Lymphocytes # (auto) 2.11 K/uL (1.2-3.4); Lymphocytes % (auto) 45.5 %; Mean Corpuscular Hemoglobin 31.8 pg (25.0-34.0); Mean Corpuscular Hgb Conc 34.2 g/dL (32.0-36.0); Mean Corpuscular Volume 92.8 fL (80.0-100.0); Mean Platelet Volume 10.7 fL (9.4-12.3); Monocytes # (auto) 0.29 K/uL (0.24-0.82); Monocytes % (auto) 6.3 %; Neutrophils # (auto) 1.83 K/uL (1.4-6.5); Neutrophils % (auto) 39.4 %; Platelet Count 184 K/uL (130-400); RDW Coefficient of Variation 14.8 % (11.5-14.5); RDW Standard Deviation 50.8 fL (36.4-46.3); Red Blood Count 3.59 M/uL (3.93-5.22); White Blood Count 4.64 K/ul (4.8-10.8)
[2021-11-29 07:18] LABS: Albumin Globulin Ratio 1.6 (0.9-2); Albumin Level 3.5 gm/dl (3.4-5.0); BUN Creatinine Ratio 7.5 (10-20); Bilirubin,Total 1.1 mg/dl (0.2-1.0); Calcium 7.8 mg/dl (8.5-10.1); Creatinine Clr Calc Pharmacy 132.7 ml/min; Est GFR (African American) 130.1 ml/min; Est GFR (Non-African American) 112.3 ml/min; Globulin 2.2 gm/dl (2.5-4.0); Potassium 4.6 mmol/L (3.5-5.1); Total Protein 5.7 gm/dl (6.0-8.3)
[2021-11-29] MEDS: NSS + 20MEQ KCL 20 MEQ/1,000 ML BAG IV SCH ×2 (07:39→17:13)
--- NOTE | 2021-11-29 08:14 | CT Scan Report ---
CT SCAN OF THE ABDOMEN AND PELVIS WITH IV CONTRAST CLINICAL HISTORY: Left lower quadrant abdominal pain. COMPARISON STUDY: Abdominal CT dated 08/27/2021. TECHNIQUE: Following the IV administration of 94 cc of Optiray 300, CT scan of the abdomen and pelvi s is performed from the lung bases to the proximal femora. Images are reviewed in the axial, sagittal , and coronal planes. IV contrast was administered without complication. A dose lowering technique wa s utilized adhering to the principles of ALARA. CT DOSE: 354.14 mGy.cm FINDINGS: Lung bases: The heart is normal in size and without pericardial effusion. The lung bases are clear. Liver: The contrast-enhanced liver is normal in size, contour, and attenuation. There is no intrahepa tic biliary ductal dilatation. The hepatic veins and portal veins are patent. Gallbladder: Unremarkable. Spleen: Normal in size and attenuation. Pancreas: Unremarkable. Adrenal glands: Unremarkable. Kidneys: The contrast enhanced kidneys are normal in size and without hydronephrosis. The kidneys enh ance symmetrically. Abdominal vasculature: The abdominal aorta is normal in course and caliber. Bowel: There is no bowel obstruction. A transient intussusception of small bowel is incidentally note d in the left midabdomen on image #138. Liquid stool is noted in the right colon. There is no colonic wall thickening or surrounding inflammation. The appendix is well-visualized and normal. Peritoneum: There is no intraperitoneal free air or abdominal ascites. Lymphadenopathy: None. Pelvic viscera: The bladder, uterus, and adnexa are normal as visualized noting bilateral ovarian fol licles. Skeletal structures: No lytic or blastic lesions are seen. There are bilateral pars defects at L5 wit h minimal anterolisthesis and moderate disc space narrowing at L5-S1. IMPRESSION: Liquid stool is noted in the colon. Correlate clinically for evidence of a diarrheal illn ess. ACT 112: Negative or not required by law. Electronically signed by: Todd Espinosa M.D. 11/29/2021 8:12 AM
[2021-11-29] MEDS: FOLIC ACID 1 MG TAB PO SCH (09:16)
[2021-11-29] MEDS: PANTOprazole 40 MG TAB PO SCH ×2 (09:16→20:40)
[2021-11-29] MEDS: DULoxetine HCL 60 MG CAP PO SCH (09:16)
[2021-11-29] MEDS: MULTIVITAMIN TAB PO SCH (09:17)
[2021-11-29] MEDS: hydrOXYzine HCl 25 MG TAB PO SCH ×3 (09:17→20:40)
[2021-11-29] MEDS: FAMOTIDINE 20 MG in SYRINGE 3 ML IV SCH (09:20)
[2021-11-29] MEDS: THIAMINE HCL 500 MG in SODIUM CHLORIDE 0.9% 50 ML IV SCH ×2 (09:20→17:44)
[2021-11-29] MEDS: GABAPENTIN 600 MG TAB PO SCH (12:13)
[2021-11-29] MEDS: DOXEPIN HCL 50 MG CAPSULE PO SCH (20:39)
[2021-11-29] MEDS: PRAZOSIN HCL 1 MG CAP PO SCH (20:41)
--- NOTE | 2021-11-29 21:32 | Hospitalist Progress Note ---
Date of Service November 29, 2021 Assessment & Plan (1) Enteric intussusception: Plan: CT a/p overnight showed a small bowel, left-sided intussusception - "transient" per radiology. this corresponds to the location of her pain she has had. I do believe her pain was from this. Pain is resolved suggesting intussusception is resolved. Will d/w GI next steps. I told her about CT findings during my rounds. (2) Breast lump on left side at 11 o'clock position: Plan: 2nd to trauma. f/u with ob-senior advocate post-d/c. I attempted to get breast u/s but unable to obtain such. will need outpatient w/u. (3) Abdominal pain: Plan: see #1 above (4) Alcohol withdrawal: Plan: Remains on librium 50 mg tid and gabapentin taper. Will cut librium to 25mg TID. Cont AWSS protocol with IV Ativan for symptoms. Cont Thiamine to 500mg TID x 2 days, then reduce to 200mg BID thereafter. Folic acid 1 mg p.o. daily. Multivitamin 1 p.o. daily. (5) Alcohol dependence: Plan: discussed options with her. prefers outpatient counseling. (6) Alcohol abuse: Plan: patient motivated to abstain following her withdrawal period (7) Hypokalemia: Plan: repleted resolved low mag repleted & resolved (8) Hypomagnesemia: Plan: repleted resolved (9) PTSD (post-traumatic stress disorder): Plan: PTSD/OK/depression - Continue doxepin, duloxetine, prazosin (10) Anxiety with depression: Plan: See above (11) Transaminitis: Plan: AST mildly elevated at 45 upon admission Now normal (12) Reflux gastritis: Plan: Continue pantoprazole 40 mg p.o. twice daily Plan can stop fluids can stop tele - has been normal labs in am d/c on Friday to home f/u with outpatient counselors, [facility], PCP, ob-senior advocate, etc Admission and Anticipated Discharge Date Admission Date: November 27, 2021 Subjective patient states that the left-sided abd pain finally resolved overnight it is completely gone this afternoon has an appetite no diarrhea no vomiting tolerating full liquids feels she is through the bulk of the withdrawal patient states that about a month ago she had a syncopal episode and hit her left breast against a piece of furniture she had bruising and has had a lump ever since no redness just mild tenderness over this lump Review of Systems Review of Systems: gen - no fevers pulm - no dyspnea GI - no nausea - no dysuria Physical Exam Physical Exam: gen - NAD, pleasant neuro - tremors of arms/hands nearly resolved; no DTs mouth - MMM heart - RRR, s1 s2, no murmur lungs - CTA b/l abd - resolved tenderness LLQ, soft, ND, bS+ no peritoneal signs ext - no edema, pulses 2+ b/l psych - a/o x 3 breast exam on left - female nurse cloud administrator present during this portion of the visit - 2.5x3cm lump upper portion of medial breast where breast meets the chest wall; freely movable, nontender, no skin changes (old bruise present only), no orange peel appearance axillae on left - no lymph nodes Results & Data Results & [facility] ([facility]) Vital Signs (Past 12 Hours) Vital Signs Temp Pulse Resp BP Pulse Ox O2 Del Method 11/29/21 14:57 36.7 C 79 18 123/82 99 Room Air 11/29/21 10:52 36.4 C L 78 20 119/83 100 Room Air Laboratory Results Laboratory Results - last 24 hr 11/29/21 11/29/21 05:45 05:45 WBC 4.64 L RBC 3.59 L Hgb 11.4 L Hct 33.3 L MCV 92.8 MCH 31.8 MCHC 34.2 RDW Std Deviation 50.8 H RDW Coeff of Dallin 14.8 H Plt Count 184 MPV 10.7 Immature Gran % (Auto) 0.2 Neut % (Auto) 39.4 Lymph % (Auto) 45.5 [place] % (Auto) 6.3 Eos % (Auto) 8.0 Baso % (Auto) 0.6 Neut # (Auto) 1.83 Lymph # (Auto) 2.11 [place] # (Auto) 0.29 Eos # (Auto) 0.37 Baso # (Auto) 0.03 Immature Gran # (Auto) 0.01 Sodium 135 L Potassium 4.6 Chloride 105 Carbon Dioxide 22 Anion Gap 8 BUN 5 L Creatinine 0.67 Est Cr Clr Drug Dosing 132.7 Est GFR ( Amer) 130.1 Est GFR (Non-Af Amer) 112.3 BUN/Creatinine Ratio 7.5 L Glucose 57 L Calcium 7.8 L Total Bilirubin 1.1 H AST 29 ALT 18 Alkaline Phosphatase 51 Total Protein 5.7 L Albumin 3.5 Globulin 2.2 L Albumin/Globulin Ratio 1.6 PG Care Time/CCT Total # of Minutes Spent Total Time Spent with Patient: Total time spent is greater than 50% in coordination of care (as documented) at patient's floor/unit and/or counseling patient: Coding Level of Care Code 81892 Subseq Hosp Care Lvl 3 Diagnoses Enteric intussusception K56.1 Breast lump on left side at 11 o'clock position N63.22 Abdominal pain R10.10 Abdominal location: upper abdomen, unspecified Alcohol withdrawal F10.239 Alcohol dependence F10.220 Complication of substance-induced condition: uncomplicated Substance use status: with intoxication Alcohol abuse F10.10 Hypokalemia E87.6 Hypomagnesemia E83.42 PTSD (post-traumatic stress disorder) F43.10 Anxiety with depression F41.8 Transaminitis R74.01 Reflux gastritis K29.60 (1) Alcohol dependence Complication of substance-induced condition: uncomplicated Substance use status: with intoxication Qualified Code(s): F10.220 - Alcohol dependence with intoxication, uncomplicated (2) Abdominal pain Abdominal location: upper abdomen, unspecified Qualified Code(s): R10.10 - Upper abdominal pain, unspecified
[2021-11-30] MEDS: GABAPENTIN 600 MG TAB PO SCH (00:14)
[2021-11-30] MEDS: THIAMINE HCL 500 MG in SODIUM CHLORIDE 0.9% 50 ML IV SCH ×2 (00:33→09:00)
[2021-11-30] MEDS: chlordiazePOXIDE HCl 25 MG CAP PO SCH ×2 (05:00→12:17)
[2021-11-30 06:15] LABS: Basophils # (auto) 0.04 K/uL (0-0.2); Basophils % (auto) 0.7 %; Eosinophils # (auto) 0.38 K/uL (0-0.50); Eosinophils % (auto) 6.3 %; Hematocrit (blood only) 34.3 % (34.1-44.9); Hemoglobin 11.8 g/dl (12.0-16.0); Immature Granulocytes # (auto) 0.02 K/uL (0.00-0.02); Immature Granulocytes % (auto) 0.3 %; Lymphocytes # (auto) 2.17 K/uL (1.2-3.4); Mean Corpuscular Hemoglobin 32.2 pg (25.0-34.0); Mean Corpuscular Hgb Conc 34.4 g/dL (32.0-36.0); Mean Corpuscular Volume 93.5 fL (80.0-100.0); Mean Platelet Volume 10.6 fL (9.4-12.3); Monocytes # (auto) 0.42 K/uL (0.24-0.82); Neutrophils % (auto) 49.7 %; Platelet Count 200 K/uL (130-400); RDW Coefficient of Variation 14.6 % (11.5-14.5); RDW Standard Deviation 49.3 fL (36.4-46.3); Red Blood Count 3.67 M/uL (3.93-5.22); White Blood Count 6.03 K/ul (4.8-10.8)
[2021-11-30 06:45] LABS: Albumin Globulin Ratio 1.7 (0.9-2); Albumin Level 3.9 gm/dl (3.4-5.0); BUN Creatinine Ratio 10.4 (10-20); Bilirubin,Total 0.8 mg/dl (0.2-1.0); Calcium 8.8 mg/dl (8.5-10.1); Creatinine Clr Calc Pharmacy 92.6 ml/min; Est GFR (African American) 87.6 ml/min; Est GFR (Non-African American) 75.6 ml/min; Globulin 2.3 gm/dl (2.5-4.0); Total Protein 6.2 gm/dl (6.0-8.3)
[2021-11-30] MEDS: FOLIC ACID 1 MG TAB PO SCH (08:48)
[2021-11-30] MEDS: hydrOXYzine HCl 25 MG TAB PO SCH ×2 (08:48→13:27)
[2021-11-30] MEDS: PANTOprazole 40 MG TAB PO SCH (08:48)
[2021-11-30] MEDS: DULoxetine HCL 60 MG CAP PO SCH (08:49)
[2021-11-30] MEDS: MULTIVITAMIN TAB PO SCH (08:49)
--- NOTE | 2021-11-30 13:16 | Discharge Summary ---
Date of Service date of admission - November 27, 2021 date of discharge - November 30, 2021 Admission HPI Per Admitting Provider The patient is a 36-year-old female with past medical history including alcohol abuse, alcohol dependence, anxiety depression, PTSD, reflux esophagitis, hepatic steatosis, previous admissions for alcohol withdrawal, transaminitis, reflux gastritis and recent miscarriage 2 months ago. The patient states that she went to [facility] initially for her alcohol withdrawal. She started experiencing some shakiness and states she felt uncomfortable so she had her mother pick her up and bring her to the emergency department at [facility]. Patient states she normally drinks about 1/5 of vodka daily. Her last drink was about noon yesterday. She feels jittery, shaky, nauseous and has a decreased appetite. She denies any suicidal ideation. Principal Diagnosis 1. alcohol withdrawal 2. 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 COMPARISON: None available at the time of this dictation. FINDINGS: The right kidney measures 10.0 cm in length, and the left kidney measures 11.9 cm in length. The left lower pole was not well seen due to overlying bowel. The right kidney is normal in size, contour, cortical thickness, and echogenicity. No hydronephrosis is identified. No renal lesion is identified. No perinephric fluid collection is seen. The left kidney is normal in size, contour, cortical thickness and echogenicity. No hydronephrosis is identified. No renal lesion is identified. No perinephric fluid collection is seen. The bladder is partially distended. No large intraluminal mass is seen. IMPRESSION: Unremarkable renal ultrasound. ACT 112: Negative or not required by law. Electronically signed by: Lester Johnson M.D. 11/27/2021 11:49 AM Chest/Abdomen X-ray 11/28/21 15:16 PA CHEST RADIOGRAPH AND UPRIGHT AND SUPINE AP RADIOGRAPHS OF THE ABDOMEN CLINICAL HISTORY: LLQ abd pain; constipation? COMPARISON STUDY: Chest CT August 27, 2020. CT of the abdomen and pelvis August 27, 2021. FINDINGS: Lung volumes are normal. Lungs are clear. No pneumothorax or pleural effusion. Pulmonary vascularity is normal. Cardiomediastinal silhouette is unremarkable. There is no free air. Small amount of stool is noted. Small and large bowel gas is present. There is no evidence for a bowel obstruction. No urinary calculi are identified. Colonic air-fluid levels are noted on upright projection. IMPRESSION: 1. No free air or evidence of bowel obstruction. Small amount of stool. 2. No acute cardiopulmonary findings. ACT 112: Negative or not required by law. Electronically signed by: Hung Stubbs M.D. 11/28/2021 4:36 PM Abdomen/Pelvis CT 11/28/21 18:26 CT SCAN OF THE ABDOMEN AND PELVIS WITH IV CONTRAST CLINICAL HISTORY: Left lower quadrant abdominal pain. COMPARISON STUDY: Abdominal CT dated 08/27/2021. TECHNIQUE: Following the IV administration of 94 cc of Optiray 300, CT scan of the abdomen and pelvis is performed from the lung bases to the proximal femora. Images are reviewed in the axial, sagittal, and coronal planes. IV contrast was administered without complication. A dose lowering technique was utilized adhering to the principles of ALARA. CT DOSE: 354.14 mGy.cm FINDINGS: Lung bases: The heart is normal in size and without pericardial effusion. The lung bases are clear. Liver: The contrast-enhanced liver is normal in size, contour, and attenuation. There is no intrahepatic biliary ductal dilatation. The hepatic veins and portal veins are patent. Gallbladder: Unremarkable. Spleen: Normal in size and attenuation. Pancreas: Unremarkable. Adrenal glands: Unremarkable. Kidneys: The contrast enhanced kidneys are normal in size and without hydronephrosis. The kidneys enhance symmetrically. Abdominal vasculature: The abdominal aorta is normal in course and caliber. Bowel: There is no bowel obstruction. A transient intussusception of small bowel is incidentally noted in the left midabdomen on image #138. Liquid stool is note d in the right colon. There is no colonic wall thickening or surrounding inflammation. The appendix is well-visualized and normal. Peritoneum: There is no intraperitoneal free air or abdominal ascites. Lymphadenopathy: None. Pelvic viscera: The bladder, uterus, and adnexa are normal as visualized noting bilateral ovarian follicles. Skeletal structures: No lytic or blastic lesions are seen. There are bilateral pars defects at L5 with minimal anterolisthesis and moderate disc space narrowing at L5-S1. IMPRESSION: Liquid stool is noted in the colon. Correlate clinically for evidence of a diarrheal illness. ACT 112: Negative or not required by law. Electronically signed by: Todd Espinosa M.D. 11/29/2021 8:12 AM Hospital Course (1) Alcohol withdrawal: Patient was treated with librium and gabapentin while here along with symptom- triggered Ativan protocol. She received high-dose thiamine 500mg TID x 2 days, IV fluids, and other supportive care. She never had evidence of DTs. She was resumed on a diet later in her stay when her abdominal pain improved/resolved. She follows with a therapist in the [place] area and will continue with that person for outpatient counseling for her alcohol dependence, PTSD, etc. She will complete a short librium taper after discharge. (2) Alcohol dependence: discussed options with her and she prefers outpatient counseling as opposed to inpatient treatment. (3) Abdominal pain: see #4 below (4) Enteric intussusception: Patient had continuous left-sided abdominal pain during the stay. CT abd/pelvis showed a small bowel, left-sided intussusception - "transient" per radiology. This CT finding corresponded to the location of her pain. Fortunately her pain fully resolved and she was able to tolerate a diet thereafter. Her CT images were placed on a CD-ROM for her. She follows with [facility] in [place] and I recommended follow-up with them in 3-4 weeks. She should have a CT abd/pelvis with IV/PO contrast in about a month to ensure there is no bowel lesion that set her up for the intussusception. She was made aware and counseled about this finding. (5) Breast lump on left side at 11 o'clock position: 2nd to trauma. It appears the area of concern is a small, resolving hematoma. I attempted to get a breast u/s to confirm the finding but was unable to obtain such while here. 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 (6) Transaminitis: AST mildly elevated at 45 upon admission Resolved prior to discharge (7) Alcohol abuse: patient motivated to abstain outpatient follow-up needed (8) Hypokalemia: repleted resolved low mag repleted & resolved (9) Hypomagnesemia: repleted resolved (10) PTSD (post-traumatic stress disorder): PTSD/OK/depression - Continue doxepin, duloxetine, prazosin and outpatient counseling (11) Anxiety with depression: See above (12) Reflux gastritis: Continue pantoprazole 40 mg p.o. twice daily Total Time Total Time Spent Total Time Spent (In Minutes): 45 Discharge Plan Discharge Items Patient Disposition: Home - Self-Care Reason For Visit: ALCOHOL WITHDRAWAL; Low potassium, low magnesium Discharge Diagnosis: 1. alcohol withdrawal - nearly resolved 2. low potassium, low magnesium - resolved 3. abnormal liver tests due to alcohol use - tests now normal 4. left-sided abdominal pain - likely was due to a condition called "intussusception" (see handout) - resolved; follow-up CT scan needed 5. breast lump - left breast - due to recent trauma - follow-up with [employer] [employer] needed Activity: Resume your previous activity Non-emergency contact: Primary Care Provider and Investment Associate Call non-emergency contact if: you have any medication questions and your symptoms worsen Follow-up/Referrals: [facility] [Other] (PLEASE CALL [facility] TO SET UP AN APPOINTMENT WITHIN 3-4 WEEK. THEY WILL NEED YOUR MOST RECENT INSURANCE THEY STATE [facility] [employer] [facility] IS NOT VALID.) Alicia Mcgee MD [Physician] - 01/30/22 2:00 pm (Dr Narvaez recommended Dr Izabella Hung for follow up, but she does not have any open appointments until next July. You can call and make an appointment for in the future : . A follow up appointment has been made with a [facility] PCP, Dr Mcgee on January 30 at 2:00pm located at [address] [place] [address] Dr Jessica [address], [place] [address]. Please arrive 15 minutes early. Call if you have any questions or need to reschedule. ) Kris Cheung M.D. [Outside Practitioners] - (see within 1 week ) Diet: Low Fiber and Lactose Intolerant Addtl Attending Provider Instructions: Ms Ybarra, You were hospitalized for alcohol withdrawal and low potassium/magnesium. You received medicines to help with your withdrawal symptoms. The low potassium and magnesium were corrected. During the stay you had left-sided abdominal pain. Kidney ultrasound was normal. X-ray of the abdomen did not show significant amounts of stool. A CT scan of the abdomen/pelvis was obtained and this showed 2 findings - * liquid stool throughout the colon * transient intussusception of the small intestine; the intussusception was seen on the left sided of your bowels consistent with the location of your abdominal pain * your pain resolved while here suggesting the intussusception resolved Recommendations - 1. chlordiazepoxide taper - take as follows. This will treat any lingering alcohol withdrawal symptoms - * 9/3 AM - 25mg x 1 * 9/3 PM - 25mg x 1 * 9/4 AM - 25mg x 1 * 9/4 PM - 25mg x 1 * 12/03 and 12/04 - 25mg once daily then stop 2. OK to resume your Linzess. 3. Low fiber diet for about 1 week then resume usual diet. See low-fiber diet handout. 4. You will need a repeat CT scan of your abdomen & pelvis - IV AND ORAL contrast - in 1 month. Please coordinate this with [facility]. We have placed your 2 CT scans of your abdomen (from July, as well as this admission) on a CD-ROM for you. The repeat CT scan is to ensure there is nothing in your bowels that caused the intussusception. 5. If you begin to drink alcohol again please STOP the chlordiazepoxide right away. 6. Please keep any previous appointments with your counselors/therapists in the [place] area. 7. Please see your ob-sales[facility] [employer] in the [place] area for the breast lump ana m. You may need ultrasound and/or diagnostic mammogram. Follow-up - * see Dr Cheung within 1 week * see [facility] in about 3-4 weeks * if you plan to change your primary care you have several options for this including Dr Mcgee or Dr Hung Return to [facility] or any hospital if - * you have recurrent abdominal pain * you have vomiting * you have severe diarrhea * you have alcohol withdrawal symptoms * any other concerns It was our pleasure to care for you at [facility]! Please continue to feel better, Dr Narvaez Pending Studies at Discharge: No Stand-Alone Forms: My [facility], Smoking Cessation Medications and DC Order Prescriptions: Continued multivitamin Tablet 1 tab PO QAM hydroxyzine pamoate [Vistaril] 50 mg Capsule 50 mg PO TID gabapentin 300 mg capsule 300 mg PO TID Linzess 145 mcg capsule 145 mcg PO DAILY prazosin 1 mg capsule 3 mg PO HS lorazepam [Ativan] 0.5 mg Tablet 0.5 mg PO BID PRN (Reason: Anxiety) pantoprazole 40 mg Tablet,Delayed Release (Dr/Ec) 40 mg PO BID Qty: 60 0RF folic acid 1 mg tablet 1,000 mcg PO DAILY Qty: 30 0RF thiamine HCl (vitamin B1) 100 mg tablet 100 mg PO DAILY Qty: 30 0RF duloxetine 60 mg capsule,delayed release(DR/EC) 60 mg PO DAILY doxepin 100 mg capsule 100 mg PO HS Changed chlordiazepoxide HCl 25 mg Capsule 25 mg PO DIRECTED Qty: 6 0RF Rx Instructions: start 12/01: 25mg PO BID x 2 days, then 25mg PO daily x 2 days, then stop. Discontinued chlordiazepoxide HCl 25 mg Capsule 50 mg PO Q8H Qty: 6 0RF chlordiazepoxide HCl 10 mg Capsule 10 mg PO Q12H Qty: 2 0RF Discharge Orders: Discharge Order (Routine); Ordered 11/30/21 Ordered By: Patrick Oreilly/Other Patient Handouts: Social Drinking vs Problem Drinking, Low-Fiber Diet, Addiction Disease Understand, Alcohol Withdrawal: What to Expect, Recovering from Addiction, Addiction Recovery Counseling, ED Alcohol Withdrawal Admission Data Admit Date/Time: 11/27/21 06:08 Attending Provider: Patrick Narvaez Admit Provider: Nicolas Lao Primary Care Provider: PCP,NO Other Providers: Nicolas Lao Other Interventions: Discharge Summary Assessment (RN) Last Done: 11/30/21 13:28 Coding Level of Care Code D/C DAY MANAGEMENT >30 MINS Diagnoses Alcohol withdrawal F10.239 Alcohol dependence F10.220 Complication of substance-induced condition: uncomplicated Substance use status: with intoxication Abdominal pain R10.10 Abdominal location: upper abdomen, unspecified Enteric intussusception K56.1 Breast lump on left side at 11 o'clock position N63.22 Transaminitis R74.01 Alcohol abuse F10.10 Hypokalemia E87.6 Hypomagnesemia E83.42 PTSD (post-traumatic stress disorder) F43.10 Anxiety with depression F41.8 Reflux gastritis K29.60
[2021-12-01] MEDS ORDERED: GABAPENTIN 600 MG TAB PO SCH
== END 2021-11-30 16:02 | disposition home or self-care (01) | DRG 897 ==
LOC: ED 03:48 → SUATTDRO 06:08 → EDINP 06:08 → 2N 10:17

== ENCOUNTER 2021-12-09 17:52 | Inpatient (IN) ==
[2021-12-09] MEDS ORDERED: MULTI-VITAMIN INFUSION 10 ML, THIAMINE HCL 100 MG, FOLIC ACID 1 MG in SODIUM CHLORIDE 0... IV ONE (18:33)
[2021-12-09] MEDS ORDERED: FAMOTIDINE 20MG IV PUSH 20 MG/5 ML SYR IV STA (18:33)
[2021-12-09] MEDS ORDERED: SODIUM CHLORIDE 0.9% 1000ML 1,000 ML IV SCH (18:45)
--- NOTE | 2021-12-09 18:46 | Emergency Department Note ---
History of Present Illness General Chief complaint: Alcohol Withdrawal Stated complaint: INTESTINAL PAIN, ALCOHOL WITHDRAWAL Time Seen by Provider: 12/09/21 18:13 Source: patient Mode of arrival: ambulatory Limitations: no limitations History of Present Illness Provider complaint: abdominal pain, alcohol withdrawal Maximum Pain Intensity: 8 This is a 36-year-old female presents emergency department with concern for recurrent abdominal pain that began on Friday as well as alcohol withdrawal. Patient does have a prior history of alcohol abuse, stating she drinks in binges due to history of depression and PTSD. She states she is currently been on a binge for approximately a week and a half. She states her last drink was around 1 PM at the beginning of the [employer] game. States Friday she began noticing left upper quadrant pain. She became concerned as on a prior scan she was told she had a mild intussusception in this area. She states she did not require any surgery or other intervention that they felt that this had resolved, but she was scheduled for a repeat CAT scan next week to assure there were no other complications. Patient states when the pain returned, she called and was instructed to seek more urgent evaluation. She denies any change in stools including no melena or hematochezia, no recent diarrhea. She states she has had intermittent nausea which she felt was more likely related to her alcohol use, no vomiting. She denies fevers or chills. She has previously had pancreatitis. She states she has had a seizure related to alcohol withdrawal and has been hospitalized. No history of DTs. Pt seen during a time of high acuity and national emergency pandemic while wearing PPE. Home Medications Medication Instructions Recorded Confirmed Type gabapentin 300 mg capsule 300 mg PO TID 05/27/18 12/09/21 History hydroxyzine pamoate 50 mg capsule 50 mg PO DAILY PRN Anxiety 05/27/18 12/09/21 History (Vistaril) multivitamin 1 tab PO QAM 05/27/18 12/09/21 History linaclotide 145 mcg capsule 145 mcg PO DAILY 07/10/20 12/09/21 History (Linzess) duloxetine 60 mg capsule,delayed 60 mg PO DAILY 08/27/20 12/09/21 History release prazosin 1 mg capsule 3 mg PO HS 06/08/21 12/09/21 History folic acid 1 mg tablet 1,000 mcg PO DAILY #30 tabs 08/28/21 12/09/21 Rx thiamine HCl (vitamin B1) 100 mg 100 mg PO DAILY #30 tabs 08/28/21 12/09/21 Rx tablet cyclobenzaprine 10 mg tablet 10 mg PO BID PRN muscle spasms 12/09/21 12/09/21 History duloxetine 30 mg capsule,delayed 30 mg PO DAILY 12/09/21 12/09/21 History release Allergies Allergy/AdvReac Type Severity Reaction Status Date / Time lactose Allergy Unknown Verified 12/09/21 23:28 Past Med/Surg History Medical History Alcohol abuse Alcohol intoxication Anxiety with depression Hepatic steatosis PTSD (post-traumatic stress disorder) Surgical History Previous section Social History Smoking Status: Never smoker Second Hand Exposure: No; Hx Alcohol Use: Yes Alcohol type: hard liquor Hx Substance Use: No Preferred Language: Tanzanian Communication Ability: Effective Kier Operator Required: No Beliefs That Will Affect Care: None marital status: Current Living Situation: Parent and Family Current Living Situation Comment: Parents and son How many Children do You have: 1 Feels Safe at Home: Yes Assistive Devices: None Review of Systems A total of 10 systems reviewed and were otherwise negative All systems reviewed & are unremarkable except as noted in HPI & below Physical Exam Vital Signs Vital Signs - 24 hr 12/09/21 18:08 12/09/21 21:00 12/09/21 23:10 Temperature 36.8 C 36.4 C L Temperature Source Temporal Artery Scan Oral Pulse Rate 122 H Pulse Rate [Left Radial] 105 H 95 H Respiratory Rate 18 20 14 Respiratory Effort / Characteristics Non-Labored Non-Labored Respiratory Depth Normal Normal Blood Pressure 149/94 H Blood Pressure [Left Arm] 125/77 134/103 H Blood Pressure Mean 112 Blood Pressure Mean [Left Arm] 93 113 Pulse Oximetry 95 98 95 Oxygen Delivery Method Room Air Room Air Room Air Sepsis Recent Fever Within 48 Hours No Sepsis New/Unexplained Change in Mental Status No Sepsis Action Taken by Nursing No Action Required GENERAL: alert, well appearing, well nourished, no distress, non-toxic EYE EXAM: normal conjunctiva, PERRL and EOM's grossly intact OROPHARYNX: no exudate, no erythema, lips, buccal mucosa, and tongue normal and mucous membranes are moist NECK: supple, no nuchal rigidity, no adenopathy, non-tender LUNGS: Clear to auscultation. Normal chest wall mechanics, no w/r/r HEART: no murmurs, S1 normal and S2 normal ABDOMEN: abdomen soft, non-tender, normo-active bowel sounds, no masses, no rebound or guarding. BACK: Back is symmetrical on inspection and there is no deformity, no midline tenderness, no CVA tenderness. SKIN: no rashes and no bruising, no erythema or diaphoresis UPPER EXTREMITIES: upper extremities are grossly normal. FROM, nml pulses b/l. LOWER EXTREMITIES: No pitting edema. FROM, nml pulses b/l. NEURO EXAM: Normal sensorium, cranial nerves II-XII grossly intact, normal speech, no gross weakness of arms, no gross weakness of legs. Gross sensation intact. Slight tremors noted. Course Course 2250: Discussed all results with patient at bedside. Patient has had Valium once thus far and feels she is in need of it again as she feels her self getting shaky again. 2318: Discussed with Dr. Bojorquez. Administered Medications Acetaminophen (Acetaminophen 500 Mg Tab) 1,000 mg PO Q6H PRN PRN Reason: Pain Stop: 01/09/22 17:52 Last Admin: 12/11/21 14:04 Dose: 1,000 mg Documented By: Admin: 12/10/21 18:10 Dose: 1,000 mg Documented By: ABDELRAHMAN Chlordiazepoxide HCl (Chlordiazepoxide Hcl 25 Mg Cap) 25 mg PO TID [facility] Stop: 01/09/22 13:59 Last Admin: 12/11/21 14:28 Dose: 25 mg Documented By: Admin: 12/11/21 08:13 Dose: 25 mg Documented By: Admin: 12/10/21 20:24 Dose: 25 mg Documented By: Admin: 12/10/21 14:35 Dose: 25 mg Documented By: ABDELRAHMAN Duloxetine HCl (Duloxetine Hcl 30 Mg Cap) 30 mg PO DAILY [facility] Stop: 01/09/22 08:59 Last Admin: 12/11/21 08:10 Dose: 30 mg Documented By: Admin: 12/10/21 09:24 Dose: 30 mg Documented By: ABDELRAHMAN Folic Acid (Folic Acid 1 Mg Tab) 1 mg PO DAILY JOSE F Stop: 01/09/22 08:59 Last Admin: 12/11/21 08:10 Dose: 1 mg Documented By: Admin: 12/10/21 09:24 Dose: 1 mg Documented By: ABDELRAHMAN Gabapentin (Gabapentin 300 Mg Cap) 300 mg PO TID JOSE F Stop: 01/09/22 08:59 Last Admin: 12/11/21 14:28 Dose: 300 mg Documented By: Admin: 12/11/21 08:09 Dose: 300 mg Documented By: Admin: 12/10/21 20:25 Dose: 300 mg Documented By: Admin: 12/10/21 14:36 Dose: 300 mg Documented By: Admin: 12/10/21 09:23 Dose: 300 mg Documented By: ABDELRAHMAN Lorazepam 1 mg/ Syringe 1 mls @ 2 mls/min IV UD PRN; Protocol PRN Reason: EtOH Withdrawal AWSS Score 6,7 Stop: 01/09/22 02:22 Last Admin: 12/10/21 11:49 Dose: 2 mls/min Documented By: Admin: 12/10/21 02:37 Dose: 2 mls/min Documented By: AZUL Linaclotide (Linaclotide 145 Mcg Capsule) 145 mcg PO DAILY JOSE F Stop: 01/09/22 08:59 Last Admin: 12/11/21 08:09 Dose: 145 mcg Documented By: Admin: 12/10/21 09:23 Dose: 145 mcg Documented By: ABDELRAHMAN Phenobarbital (Phenobarbital 30 Mg Tab) 30 mg PO BID JOSE F; Taper Stop: 12/13/21 08:59 Last Admin: 12/11/21 08:13 Dose: 30 mg Documented By: Admin: 12/10/21 20:22 Dose: 60 mg Documented By: Admin: 12/10/21 09:23 Dose: 60 mg Documented By: ABDELRAHMAN Prazosin HCl (Prazosin Hcl 1 Mg Cap) 3 mg PO HS JOSE F Stop: 01/09/22 20:59 Last Admin: 12/10/21 20:22 Dose: 3 mg Documented By: JOHNNY Thiamine HCl (Thiamine Hcl 100 Mg Tab) 100 mg PO DAILY JOSE F Stop: 01/09/22 08:59 Last Admin: 12/11/21 08:10 Dose: 100 mg Documented By: Admin: 12/10/21 09:23 Dose: 100 mg Documented By: CG Discontinued Medications Al Hydrox/Mg Hydrox/Simethicone (Aluminum/Magnesium Susp 30 Ml Udc) 15 ml PO NOW STA Stop: 12/09/21 23:27 Last Admin: 12/10/21 00:10 Dose: 15 ml Documented By: HH Diazepam (Diazepam 5 Mg/Ml Inj 10ml Vial) 2 mg IV Q1H PRN PRN Reason: Alcohol Withdrawal Stop: 01/08/22 18:32 Last Admin: 12/09/21 23:09 Dose: 2 mg Documented By: Admin: 12/09/21 19:14 Dose: 2 mg Documented By: DB Duloxetine HCl (Duloxetine Hcl 60 Mg Cap) 60 mg PO DAILY JOSE F Stop: 01/09/22 08:59 Last Admin: 12/10/21 09:24 Dose: 60 mg Documented By: CG Glucose (Glucose 10 Tab/Tube) Confirm Administered Dose 10 tab PO .STK-MED ONE Stop: 12/10/21 09:16 Last Admin: 12/10/21 09:24 Dose: Not Given Documented By: CG Sodium Chloride (Nss 1000ml) 1,000 mls @ 125 mls/hr IV .Q8H JOSE F Stop: 01/08/22 18:44 Last Infusion: 12/10/21 02:32 Dose: 0 mls/hr Documented By: Admin: 12/09/21 19:14 Dose: 125 mls/hr Documented By: DB Multivitamins 10 ml/ Thiamine HCl 100 mg/ Folic Acid 1 mg/Sodium Chloride 1,011.2 mls @ 200 mls/hr IV .Q5H4M ONE Stop: 12/09/21 23:36 Last Infusion: 12/10/21 01:41 Dose: 0 mls/hr Documented By: Admin: 12/09/21 19:37 Dose: 200 mls/hr Documented By: DB Famotidine (Pepcid 20mg Iv Push) 20 mg in 5 mls @ 2.5 mls/min IV NOW STA Stop: 12/09/21 18:34 Last Admin: 12/09/21 19:14 Dose: 2.5 mls/min Documented By: DB Lactated Ringer's (Lr) 1,000 mls @ 100 mls/hr IV .Q10H JOSE F Stop: 12/10/21 12:22 Last Infusion: 12/10/21 12:54 Dose: 0 mls/hr Documented By: Admin: 12/10/21 02:40 Dose: 100 mls/hr Documented By: AZUL Lactated Ringer's (Lr) 1,000 mls @ 125 mls/hr IV .Q8H JOSE F Stop: 12/11/21 15:44 Last Infusion: 12/11/21 16:36 Dose: 0 mls/hr Documented By: Admin: 12/11/21 08:06 Dose: 125 mls/hr Documented By: ROBERTO Ioversol (Optiray 300 100ml) 90 ml IV ONCE ONE Stop: 12/09/21 22:13 Last Admin: 12/09/21 22:12 Dose: 100 ml Documented By: RALPH Phenobarbital Sodium (Phenobarbital Sodium 65 Mg/Ml Vial) 260 mg IV NOW STA Stop: 12/09/21 23:38 Last Admin: 12/10/21 00:11 Dose: 260 mg Documented By: YARIEL Medical Decision Making Differential Diagnosis Differential diagnoses includes but is not limited to gastritis, peptic ulcer disease, GERD, gallbladder disease, pancreatitis, small bowel obstruction, acute coronary syndrome, pericarditis, ischemic bowel, irritable bowel disease, irritable bowel syndrome, appendicitis, diverticulitis, malignancy, hernia, urinary tract infection, torsion, [/ectopic (if female)], perforation, trauma, infectious. Medical Records Attestation: I reviewed the patient's medical records. Home Medications Current Medication List: was personally reviewed by me Laboratory Data Attestation: I reviewed the patient's lab results. Result diagrams: 12/10/21 07:03 12/10/21 07:02 Lab Results 12/09/21 12/09/21 12/09/21 Range/Units 18:10 18:10 18:27 WBC 10.20 (4.8-10.8) K/ul RBC 3.74 L (3.93-5.22) M/uL Hgb 12.1 (12.0-16.0) g/dl Hct 35.2 (34.1-44.9) % MCV 94.1 (80.0-100.0) fL MCH 32.4 (25.0-34.0) pg MCHC 34.4 (32.0-36.0) g/dL RDW Std Deviation 52.7 H (36.4-46.3) fL RDW Coeff of [place] 15.1 H (11.5-14.5) % Plt Count 318 (130-400) K/uL MPV 9.9 (9.4-12.3) fL Immature Gran % (Auto) 0.2 % Neut % (Auto) 48.9 % Lymph % (Auto) 41.1 % [place] % (Auto) 8.5 % Eos % (Auto) 0.6 % Baso % (Auto) 0.7 % Neut # (Auto) 4.99 (1.4-6.5) K/uL Lymph # (Auto) 4.19 H (1.2-3.4) K/uL [place] # (Auto) 0.87 H (0.24-0.82) K/uL Eos # (Auto) 0.06 (0-0.50) K/uL Baso # (Auto) 0.07 (0-0.2) K/uL Immature Gran # (Auto) 0.02 (0.00-0.02) K/uL PT (9.0-12.0) Seconds INR (0.9-1.1) Sodium (136-145) mmol/L Potassium (3.5-5.1) mmol/L Chloride (98-107) mmol/L Carbon Dioxide (21-32) mmol/L Anion Gap (3-11) BUN (6-23) mg/dl Creatinine (0.6-1.2) mg/dl Est Cr Clr Drug Dosing ml/min Est GFR ( Amer) ml/min Est GFR (Non-Af Amer) ml/min BUN/Creatinine Ratio (10-20) Glucose (70-99(Fasting)) mg/dl Calcium (8.5-10.1) mg/dl Magnesium (1.7-2.4) mg/dl Total Bilirubin (0.2-1.0) mg/dl AST (13-39) U/L ALT (7-52) U/L Alkaline Phosphatase (34-104) U/L Troponin I High Sens (0-14) pg/ml Total Protein (6.0-8.3) gm/dl Albumin (3.4-5.0) gm/dl Globulin (2.5-4.0) gm/dl Albumin/Globulin Ratio (0.9-2) Lipase (11-82) U/L TSH (0.300-4.500) uIu/ml HCG, Qual (Negative) Urine Color Yellow Urine Appearance Clear (Clear) Urine pH 6.5 (4.5-7.5) Ur Specific [place] 1.003 (1.000-1.030) Urine Protein Negative (Negative) Urine Glucose (UA) Negative (Negative) Urine Ketones Negative (Negative) Urine Blood Negative (Negative) Urine Nitrite Negative (Negative) Urine Bilirubin Negative (Negative) Urine Urobilinogen Negative (Negative) Ur Leukocyte Esterase Negative (Negative) Urine Opiates Screen Neg (Neg) Ur Methadone, Qual Neg (Neg) Urine Barbiturates Neg (Neg) Ur Phencyclidine (PCP) Neg (Neg) U Amphetamin/Meth Scrn Neg (Neg) MDMA (Ecstasy) Screen Neg (Neg) U Benzodiazepines Scrn Pos H (Neg) Ur Cocaine Metabolite Neg (Neg) U Marijuana (THC) Screen Neg (Neg) Ethyl Alcohol mg/dL (<10.0) mg/dl 12/09/21 12/09/21 12/09/21 Range/Units 18:27 18:27 18:27 WBC (4.8-10.8) K/ul RBC (3.93-5.22) M/uL Hgb (12.0-16.0) g/dl Hct (34.1-44.9) % MCV (80.0-100.0) fL MCH (25.0-34.0) pg MCHC (32.0-36.0) g/dL RDW Std Deviation (36.4-46.3) fL RDW Coeff of [place] (11.5-14.5) % Plt Count (130-400) K/uL MPV (9.4-12.3) fL Immature Gran % (Auto) % Neut % (Auto) % Lymph % (Auto) % [place] % (Auto) % Eos % (Auto) % Baso % (Auto) % Neut # (Auto) (1.4-6.5) K/uL Lymph # (Auto) (1.2-3.4) K/uL [place] # (Auto) (0.24-0.82) K/uL Eos # (Auto) (0-0.50) K/uL Baso # (Auto) (0-0.2) K/uL Immature Gran # (Auto) (0.00-0.02) K/uL PT 9.8 (9.0-12.0) Seconds INR 0.9 (0.9-1.1) Sodium 138 (136-145) mmol/L Potassium 3.5 (3.5-5.1) mmol/L Chloride 101 (98-107) mmol/L Carbon Dioxide 26 (21-32) mmol/L Anion Gap 11 (3-11) BUN 10 (6-23) mg/dl Creatinine 0.59 L (0.6-1.2) mg/dl Est Cr Clr Drug Dosing 150.7 ml/min Est GFR ( Amer) 135.7 ml/min Est GFR (Non-Af Amer) 117.1 ml/min BUN/Creatinine Ratio 16.9 (10-20) Glucose 98 (70-99(Fasting)) mg/dl Calcium 9.7 (8.5-10.1) mg/dl Magnesium 1.7 (1.7-2.4) mg/dl Total Bilirubin 0.5 (0.2-1.0) mg/dl AST 34 (13-39) U/L ALT 15 (7-52) U/L Alkaline Phosphatase 72 (34-104) U/L Troponin I High Sens < 2.3 (0-14) pg/ml Total Protein 6.9 (6.0-8.3) gm/dl Albumin 4.3 (3.4-5.0) gm/dl Globulin 2.6 (2.5-4.0) gm/dl Albumin/Globulin Ratio 1.7 (0.9-2) Lipase 67 (11-82) U/L TSH 3.794 (0.300-4.500) uIu/ml HCG, Qual (Negative) Urine Color Urine Appearance (Clear) Urine pH (4.5-7.5) Ur Specific [place] (1.000-1.030) Urine Protein (Negative) Urine Glucose (UA) (Negative) Urine Ketones (Negative) Urine Blood (Negative) Urine Nitrite (Negative) Urine Bilirubin (Negative) Urine Urobilinogen (Negative) Ur Leukocyte Esterase (Negative) Urine Opiates Screen (Neg) Ur Methadone, Qual (Neg) Urine Barbiturates (Neg) Ur Phencyclidine (PCP) (Neg) U Amphetamin/Meth Scrn (Neg) MDMA (Ecstasy) Screen (Neg) U Benzodiazepines Scrn (Neg) Ur Cocaine Metabolite (Neg) U Marijuana (THC) Screen (Neg) Ethyl Alcohol mg/dL (<10.0) mg/dl 12/09/21 12/09/21 Range/Units 18:27 18:27 WBC (4.8-10.8) K/ul RBC (3.93-5.22) M/uL Hgb (12.0-16.0) g/dl Hct (34.1-44.9) % MCV (80.0-100.0) fL MCH (25.0-34.0) pg MCHC (32.0-36.0) g/dL RDW Std Deviation (36.4-46.3) fL RDW Coeff of [place] (11.5-14.5) % Plt Count (130-400) K/uL MPV (9.4-12.3) fL Immature Gran % (Auto) % Neut % (Auto) % Lymph % (Auto) % [place] % (Auto) % Eos % (Auto) % Baso % (Auto) % Neut # (Auto) (1.4-6.5) K/uL Lymph # (Auto) (1.2-3.4) K/uL [place] # (Auto) (0.24-0.82) K/uL Eos # (Auto) (0-0.50) K/uL Baso # (Auto) (0-0.2) K/uL Immature Gran # (Auto) (0.00-0.02) K/uL PT (9.0-12.0) Seconds INR (0.9-1.1) Sodium (136-145) mmol/L Potassium (3.5-5.1) mmol/L Chloride (98-107) mmol/L Carbon Dioxide (21-32) mmol/L Anion Gap (3-11) BUN (6-23) mg/dl Creatinine (0.6-1.2) mg/dl Est Cr Clr Drug Dosing ml/min Est GFR ( Amer) ml/min Est GFR (Non-Af Amer) ml/min BUN/Creatinine Ratio (10-20) Glucose (70-99(Fasting)) mg/dl Calcium (8.5-10.1) mg/dl Magnesium (1.7-2.4) mg/dl Total Bilirubin (0.2-1.0) mg/dl AST (13-39) U/L ALT (7-52) U/L Alkaline Phosphatase (34-104) U/L Troponin I High Sens (0-14) pg/ml Total Protein (6.0-8.3) gm/dl Albumin (3.4-5.0) gm/dl Globulin (2.5-4.0) gm/dl Albumin/Globulin Ratio (0.9-2) Lipase (11-82) U/L TSH (0.300-4.500) uIu/ml HCG, Qual Negative (Negative) Urine Color Urine Appearance (Clear) Urine pH (4.5-7.5) Ur Specific [place] (1.000-1.030) Urine Protein (Negative) Urine Glucose (UA) (Negative) Urine Ketones (Negative) Urine Blood (Negative) Urine Nitrite (Negative) Urine Bilirubin (Negative) Urine Urobilinogen (Negative) Ur Leukocyte Esterase (Negative) Urine Opiates Screen (Neg) Ur Methadone, Qual (Neg) Urine Barbiturates (Neg) Ur Phencyclidine (PCP) (Neg) U Amphetamin/Meth Scrn (Neg) MDMA (Ecstasy) Screen (Neg) U Benzodiazepines Scrn (Neg) Ur Cocaine Metabolite (Neg) U Marijuana (THC) Screen (Neg) Ethyl Alcohol mg/dL 314.3 H (<10.0) mg/dl Imaging Data Radiologist's Impression: CT abdomen and pelvis with contrast: Comparison: 11/28/2021. Lung bases are clear. Normal cardiac size. Normal abdominal viscera. Normal gallbladder and biliary system. Normal stomach with no hiatal hernia. Normal bilateral adrenal glands. Mild nonspecific distention of colon with contrast. Mild thickening of the wall of the distal sigmoid and rectum, cannot exclude mild focal distal colitis/proctitis. Otherwise normal colon. There is normal appendix. No signs of intussusception. No bowel obstruction. Retroflexed uterus. Urinary bladder is incompletely distended otherwise unremarkable. Radiologist: Janelle Ward MD ECG Data Attestation: I personally reviewed and interpreted this ECG as follows: Indication: + tachycardia Rate (beats per minute): 95 Rhythm: + normal sinus ECG Intervals/blocks: + Normal QRS and + Normal QT ECG [place]: + Normal ECG ST segments: + Nonspecific ST abnormalities MDM Narrative An order was placed for continuous cardiac monitoring. The monitor shows a rate of _94_ with _normal sinus__ rhythm. This is a 36 yo female who presents with concern for abdominal pain and alcohol withdrawal. Patient clinically sober on initial exam and already feeling jaye mulous. She was found to have a serum etoh >300. Mild tachycardia and htn noted. Patients labs reassuring and CT a/p without acute findings. I suspect recurrent LUQ abd pain more likely from alcohol gastritis given recent binge. Patient given several doses of valium for mild withdrawal symptoms while still intoxicated by lab although clinically sober. Given higher risk of severe alcohol withdrawal, case discussed with hospitalist for additional evaluation and treatment. No seizures while in the ER, VS stable. Patient given IVF and banana bag while awaiting CT. No evidence of significant coaguloapthy on labs. H/H stable. Impression & Plan Abdominal pain, Alcohol withdrawal, Alcohol abuse, Alcoholic intoxication, Depression Discharge Plan Visit Data Chief Complaint: Alcohol Withdrawal Stated Complaint: INTESTINAL PAIN, ALCOHOL WITHDRAWAL ED Provider: Pita Ulrich Discharge Problem: Abdominal pain, Alcohol withdrawal, Alcohol abuse, Alcoholic intoxication, Depression Patient Disposition: Admitted As Inpatient Discharge Instructions Interventions: ED Discharge Assessment Last Done: 12/10/21 01:47
[2021-12-09 18:47] LABS: Basophils # (auto) 0.07 K/uL (0-0.2); Basophils % (auto) 0.7 %; Eosinophils # (auto) 0.06 K/uL (0-0.50); Eosinophils % (auto) 0.6 %; Hematocrit (blood only) 35.2 % (34.1-44.9); Hemoglobin 12.1 g/dl (12.0-16.0); Immature Granulocytes # (auto) 0.02 K/uL (0.00-0.02); Immature Granulocytes % (auto) 0.2 %; Lymphocytes # (auto) 4.19 K/uL (1.2-3.4); Lymphocytes % (auto) 41.1 %; Mean Corpuscular Hemoglobin 32.4 pg (25.0-34.0); Mean Corpuscular Hgb Conc 34.4 g/dL (32.0-36.0); Mean Corpuscular Volume 94.1 fL (80.0-100.0); Mean Platelet Volume 9.9 fL (9.4-12.3); Monocytes # (auto) 0.87 K/uL (0.24-0.82); Monocytes % (auto) 8.5 %; Neutrophils # (auto) 4.99 K/uL (1.4-6.5); Neutrophils % (auto) 48.9 %; Platelet Count 318 K/uL (130-400); RDW Coefficient of Variation 15.1 % (11.5-14.5); RDW Standard Deviation 52.7 fL (36.4-46.3); Red Blood Count 3.74 M/uL (3.93-5.22)
[2021-12-09 19:00] LABS: INR 0.9 (0.9-1.1); Prothrombin Time 9.8 Seconds (9.0-12.0)
[2021-12-09 19:14] LABS: Appearance Urine Clear (Clear); Bilirubin Urine Negative (Negative); Blood Urine Negative (Negative); Color Urine Yellow; Glucose Urine UA Negative (Negative); Ketones Urine Negative (Negative); Leukocyte Esterase Urine Negative (Negative); Nitrite Urine Negative (Negative); Protein Urine Negative (Negative); Specific Gravity Urine 1.003 (1.000-1.030); Urobilinogen Urine Negative (Negative); pH Urine 6.5 (4.5-7.5)
[2021-12-09 19:16] LABS: Alanine Aminotransferase 15 U/L (7-52); Albumin Globulin Ratio 1.7 (0.9-2); Albumin Level 4.3 gm/dl (3.4-5.0); Alkaline Phosphatase 72 U/L (34-104); Anion Gap 11 (3-11); Aspartate Aminotransferase 34 U/L (13-39); BUN Creatinine Ratio 16.9 (10-20); Bilirubin,Total 0.5 mg/dl (0.2-1.0); Blood Urea Nitrogen 10 mg/dl (6-23); Calcium 9.7 mg/dl (8.5-10.1); Carbon Dioxide 26 mmol/L (21-32); Chloride 101 mmol/L (98-107); Creatinine Clr Calc Pharmacy 150.7 ml/min; Est GFR (African American) 135.7 ml/min; Est GFR (Non-African American) 117.1 ml/min; Globulin 2.6 gm/dl (2.5-4.0); Glucose 98 mg/dl (70-99(Fasting)); Lipase 67 U/L (11-82); Magnesium 1.7 mg/dl (1.7-2.4); Potassium 3.5 mmol/L (3.5-5.1); Sodium 138 mmol/L (136-145); Total Protein 6.9 gm/dl (6.0-8.3); Troponin I High Sensitivity < 2.3 pg/ml (0-14)
[2021-12-09 20:07] LABS: Amphetamines+Metham, Urine Neg (Neg); Barbiturates, Urine Neg (Neg); Benzodiazepine, Urine Pos (Neg); Cocaine, Urine Neg (Neg); MDMA (Ecstacy), Urine Neg (Neg); Methadone, Urine Neg (Neg); Opiate, Urine Neg (Neg); Phencyclidine, Urine Neg (Neg)
[2021-12-09 20:19] LABS: Pregnancy Test, Serum Negative (Negative)
[2021-12-09] MEDS ORDERED: OPTIRAY 300 100mL IV ONE (22:12)
[2021-12-09] MEDS ORDERED: ALUMINUM/MAGNESIUM SUSP 30 ML UDC PO STA (23:26)
[2021-12-09] MEDS ORDERED: PHENobarbital sodium 65 MG/ML VIAL IV STA (23:37)
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
[2021-12-10] MEDS ORDERED: LACTATED RINGER'S 1,000 ML IV SCH (02:23)
[2021-12-10] MEDS ORDERED: ONDANSETRON INJ 2 MG/ML 2 ML VIAL IV PRN (02:23)
[2021-12-10] MEDS ORDERED: LORazepam 3 MG in SYRINGE 1.5 ML IV PRN (02:23)
[2021-12-10] MEDS ORDERED: LORazepam 2 MG in SYRINGE 1 ML IV PRN (02:23)
[2021-12-10] MEDS ORDERED: CYCLOBENZAPRINE HCL 10 MG TAB PO PRN (02:23)
[2021-12-10] MEDS ORDERED: Ativan IV Alcohol Withdrawal--Active Protocol IV PRN (02:23)
[2021-12-10] MEDS: LORazepam 1 MG in SYRINGE 0.5 ML IV PRN ×2 (02:37→11:49)
[2021-12-10 07:47] LABS: Basophils # (auto) 0.04 K/uL (0-0.2); Basophils % (auto) 0.9 %; Eosinophils # (auto) 0.12 K/uL (0-0.50); Eosinophils % (auto) 2.6 %; Hematocrit (blood only) 30.9 % (34.1-44.9); Hemoglobin 10.6 g/dl (12.0-16.0); Immature Granulocytes # (auto) 0.01 K/uL (0.00-0.02); Immature Granulocytes % (auto) 0.2 %; Lymphocytes # (auto) 1.79 K/uL (1.2-3.4); Lymphocytes % (auto) 39.3 %; Mean Corpuscular Hemoglobin 32.7 pg (25.0-34.0); Mean Corpuscular Hgb Conc 34.3 g/dL (32.0-36.0); Mean Corpuscular Volume 95.4 fL (80.0-100.0); Mean Platelet Volume 9.4 fL (9.4-12.3); Monocytes # (auto) 0.41 K/uL (0.24-0.82); Neutrophils # (auto) 2.18 K/uL (1.4-6.5); Platelet Count 229 K/uL (130-400); RDW Coefficient of Variation 15.3 % (11.5-14.5); RDW Standard Deviation 53.9 fL (36.4-46.3); Red Blood Count 3.24 M/uL (3.93-5.22); White Blood Count 4.55 K/ul (4.8-10.8)
[2021-12-10 07:56] LABS: Albumin Level 3.5 gm/dl (3.4-5.0); BUN Creatinine Ratio 12.1 (10-20); Bilirubin Direct 0.1 mg/dl (0-0.2); Bilirubin,Total 0.6 mg/dl (0.2-1.0); Calcium 8.2 mg/dl (8.5-10.1); Creatinine Clr Calc Pharmacy 153.3 ml/min; Est GFR (African American) 136.5 ml/min; Est GFR (Non-African American) 117.8 ml/min; Potassium 3.7 mmol/L (3.5-5.1); Total Protein 5.6 gm/dl (6.0-8.3)
--- NOTE | 2021-12-10 08:41 | CT Scan Report ---
ABDOMEN AND PELVIS CT WITH IV AND ORAL CONTRAST CT DOSE: 398.80 mGy.cm HISTORY: Left upper quadrant pain, hx intussusception TECHNIQUE: Multiaxial CT images of the abdomen and pelvis were performed following the use of intrave nous and oral contrast. A dose lowering technique was utilized adhering to the principles of ALARA. COMPARISON STUDY: Abdomen and pelvis CT 11/28/2021. FINDINGS: Bilateral L5 spondylolysis with associated grade 1 anterolisthesis. Moderate disc space rick rowing at L5-S1 is again noted. The lung bases are clear. No pneumoperitoneum. No pneumatosis. No fra ctures within the visualized osseous structures. No hepatic or splenic masses. The adrenal glands, pa ncreas, and gallbladder are unremarkable. The kidneys enhance normally. No hydronephrosis. No retrope ritoneal lymphadenopathy. Normal caliber abdominal aorta. The bladder is not well-distended but appea rs unremarkable. The uterus and ovaries are within normal limits. Normal appendix. Fluid-filled loops of large or small bowel seen throughout the abdomen. No evidence for intussusception. No dilated loo ps of small bowel to suggest an obstruction. The main portal vein is patent. Normal caliber abdominal aorta. No significant pelvic free fluid. Questionable mild thickening at the rectum. IMPRESSION: 1. Fluid-filled loops of large and small bowel without evidence for obstruction. This could represent a gastroenteritis/diarrheal illness. 2. Questionable mild thickening at the rectum. A low-grade proctitis is not excluded. 3. No hydronephrosis. ACT 112: Negative or not required by law. Electronically signed by: Jone Dupont M.D. 12/10/2021 8:39 AM
[2021-12-10] MEDS ORDERED: DULoxetine HCL 60 MG CAP PO SCH (09:00)
[2021-12-10] MEDS ORDERED: GLUCOSE 10 TAB/TUBE PO ONE (09:15)
[2021-12-10] MEDS: PHENobarbitaL 30 MG TAB PO SCH ×2 (09:23→20:22)
[2021-12-10] MEDS: LINACLOTIDE 145 MCG CAPSULE PO SCH (09:23)
[2021-12-10] MEDS: GABAPENTIN 300 MG CAP PO SCH ×3 (09:23→20:25)
[2021-12-10] MEDS: THIAMINE HCL 100 MG TAB PO SCH (09:23)
[2021-12-10] MEDS: DULoxetine HCL 30 MG CAP PO SCH (09:24)
[2021-12-10] MEDS: FOLIC ACID 1 MG TAB PO SCH (09:24)
--- NOTE | 2021-12-10 10:26 | Electrocardiogram Report ---
Test Reason : Blood Pressure : / mmHG Vent. Rate : 095 BPM Atrial Rate : 095 BPM P-R Int : 128 ms QRS Dur : 084 ms QT Int : 374 ms P-R-T Axes : 031 023 008 degrees QTc Int : 469 ms Normal sinus rhythm Nonspecific T wave abnormality Abnormal ECG When compared with ECG of 27-NOV-2021 04:40, No significant change was found Confirmed by James Sheikh ([id number]) on 12/10/2021 10:26:14 AM Referred By: REFERRED SELF Confirmed By:James Sheikh
[2021-12-10] MEDS: chlordiazePOXIDE HCl 25 MG CAP PO SCH ×2 (14:35→20:24)
--- NOTE | 2021-12-10 17:59 | Hospitalist Progress Note ---
Date of Service December 10, 2021 Assessment & Plan (1) Alcohol withdrawal: Plan: 36-year-old female with history of alcohol abuse presenting with alcohol withdrawal. Patient drinks approximately 12 drinks daily, last drink 12/09/2021 at 1300. Alcohol level is presently 314.3. Patient is showing evidence of mild withdrawal at this level. Prior history of withdrawal seizure approximately 1 year ago She has received Valium 2 mg IV +2 mg IV in the ER as well as a banana bag IV phenobarbital x1 dose (260 mg) administered in the ER followed by 60 twice daily. Patient persists with symptoms we will add Librium 25 3 times daily -AWSS with IV Ativan as needed Maintain seizure precautions Continue folic acid 1 mg p.o. daily Continue thiamine 100 mg p.o. daily Continue home gabapentin 300 mg p.o. 3 times daily (2) Depression: Plan: Chronic. Patient feels Cymbalta is not working. We will reduce dose and have psychiatry consultation (3) PTSD (post-traumatic stress disorder): Plan: Patient with history of PTSD. Continue prazosin 3 mg p.o. nightly for nightmares Admission and Anticipated Discharge Date Admission Date: December 09, 2021 Subjective pt still a bit tremulous and diaphoretic, has a headache we discussed her relapse at length Review of Systems Review of Systems: Moderate distress and fatigue Bilateral frontal headache, no visual changes no speech or swallowing issues no chest pain, pressure or palpitations no shortness of breath, cough or wheezes no abdominal pain, nausea or vomiting, diarrhea or constipation no dysuria, hematuria or frequency no focal joint pain or swelling no back pain, CVA tenderness or radicular pain no bruising, bleeding or rashes no focal signs of weakness or numbness or altered sensation complaints of anxiety Physical Exam Physical Exam: The patient appeared well nourished and normally developed. Vital signs as documented. He is diaphoretic Head exam is normocephalic atraumatic Neck is without JVD, thyromegaly, or carotid bruits. Lungs are clear to auscultation, no focal loss of breath sounds Cardiac exam, Rhythm is regular.. No murmurs, rubs or gallops. Abdominal exam reveals normal bowel sounds, soft non tender, no masses Extremities are nonedematous and both pedal pulses are present Neurologic exam is alert and oriented tremulous but no asterixis Skin is without bruises or rashes Psychologically is with concerns for anxiety & depression.. Results & Data Results & Data ([facility]) Vital Signs (Past 12 Hours) Vital Signs Temp Pulse Pulse Resp BP Pulse Ox O2 Del Method 12/10/21 14:18 82 12/10/21 17:31 98.4 F 88 18 136/95 98 Room Air 12/10/21 14:32 97.9 F 78 18 130/85 98 Room Air 12/10/21 06:01 85 12/10/21 11:02 98.2 F 81 14 151/99 H 98 Room Air 12/10/21 07:35 98.1 F 84 20 133/90 94 Room Air PG Care Time/CCT Total # of Minutes Spent Total Time Spent with Patient: Total time spent is greater than 50% in coordination of care (as documented) at patient's floor/unit and/or counseling patient: Coding Level of Care Code 85797 Subseq Hosp Care Lvl 2 Diagnoses Alcohol withdrawal F10.239 Depression F32.A PTSD (post-traumatic stress disorder) F43.10
[2021-12-10] MEDS: ACETAMINOPHEN 500 MG TAB PO PRN (18:10)
[2021-12-10] MEDS: PRAZOSIN HCL 1 MG CAP PO SCH (20:22)
--- NOTE | 2021-12-11 07:37 | Hospitalist Progress Note ---
Date of Service December 11, 2021 Assessment & Plan (1) Alcohol withdrawal: Plan: 36-year-old female with history of alcohol abuse presenting with alcohol withdrawal. Patient drinks approximately 12 drinks daily, last drink 12/09/2021 at 1300. Alcohol level is presently 314.3. Patient is showing evidence of mild withdrawal at this level. Prior history of withdrawal seizure approximately 1 year ago She has received Valium 2 mg IV +2 mg IV in the ER as well as a banana bag IV phenobarbital x1 dose (260 mg) administered in the ER followed by 60 twice daily.-> 30 bid then 30 q day librium taper -AWSS with IV Ativan as needed Maintain seizure precautions Continue folic acid 1 mg p.o. daily Continue thiamine 100 mg p.o. daily Continue home gabapentin 300 mg p.o. 3 times daily (2) Depression: Plan: Chronic. Patient feels Cymbalta is not working. We will reduce dose , psychiatry consultation concurs (3) PTSD (post-traumatic stress disorder): Plan: Patient with history of PTSD. Continue prazosin 3 mg p.o. nightly for nightmares Admission and Anticipated Discharge Date Admission Date: December 09, 2021 Subjective pt is less tremulous, and continues to make strides to have good outpt plan we discussed her relapse at length Review of Systems Review of Systems: Moderate distress and fatigue Bilateral frontal headache, no visual changes no speech or swallowing issues no chest pain, pressure or palpitations no shortness of breath, cough or wheezes no abdominal pain, nausea or vomiting, diarrhea or constipation no dysuria, hematuria or frequency no focal joint pain or swelling no back pain, CVA tenderness or radicular pain no bruising, bleeding or rashes no focal signs of weakness or numbness or altered sensation complaints of anxiety Physical Exam Physical Exam: The patient appeared well nourished and normally developed. Vital signs as documented. He is diaphoretic Head exam is normocephalic atraumatic Neck is without JVD, thyromegaly, or carotid bruits. Lungs are clear to auscultation, no focal loss of breath sounds Cardiac exam, Rhythm is regular.. No murmurs, rubs or gallops. Abdominal exam reveals normal bowel sounds, soft non tender, no masses Extremities are nonedematous and both pedal pulses are present Neurologic exam is alert and oriented tremulous but no asterixis Skin is without bruises or rashes Psychologically is with concerns for anxiety & depression.. Results & Data Results & Data ([facility]) Vital Signs (Past 12 Hours) Vital Signs Temp Pulse Pulse Resp BP Pulse Ox O2 Del Method 12/11/21 05:45 97.9 F 85 18 122/82 97 Room Air 12/11/21 04:00 70 16 12/10/21 23:00 90 12/10/21 20:15 Room Air 12/10/21 23:02 98.4 F 90 20 120/77 94 Room Air PG Care Time/CCT Total # of Minutes Spent Total Time Spent with Patient: Total time spent is greater than 50% in coordination of care (as documented) at patient's floor/unit and/or counseling patient: Coding Level of Care Code 85622 Subseq Hosp Care Lvl 2 Diagnoses Alcohol withdrawal F10.239 Depression F32.A PTSD (post-traumatic stress disorder) F43.10
[2021-12-11] MEDS ORDERED: LACTATED RINGER'S 1,000 ML IV SCH (07:45)
[2021-12-11] MEDS: LINACLOTIDE 145 MCG CAPSULE PO SCH (08:09)
[2021-12-11] MEDS: GABAPENTIN 300 MG CAP PO SCH ×3 (08:09→20:38)
[2021-12-11] MEDS: DULoxetine HCL 30 MG CAP PO SCH (08:10)
[2021-12-11] MEDS: THIAMINE HCL 100 MG TAB PO SCH (08:10)
[2021-12-11] MEDS: FOLIC ACID 1 MG TAB PO SCH (08:10)
[2021-12-11] MEDS: PHENobarbitaL 30 MG TAB PO SCH ×2 (08:13→20:38)
[2021-12-11] MEDS: chlordiazePOXIDE HCl 25 MG CAP PO SCH ×3 (08:13→20:38)
[2021-12-11] MEDS: ACETAMINOPHEN 500 MG TAB PO PRN (14:04)
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
[2021-12-11] MEDS: PRAZOSIN HCL 1 MG CAP PO SCH (20:38)
[2021-12-11 21:42] LABS: 7-Aminoclonaz, Confirm NEGATIVE ng/mL (<25); Hydro-Alp Ur, GC/MS NEGATIVE ng/mL (<25); Hydroxyethylflurazepam, Conf NEGATIVE ng/mL (<50); Hydroxymidazolam Ur, GC/MS NEGATIVE ng/mL (<50); Hydroxytriazolam NEGATIVE ng/mL (<50); Lorazepam, Ur GC/MS NEGATIVE ng/mL (<50); Nordiazepam, Confirm NEGATIVE ng/mL (<50); Oxazepam Ur, GC/MS NEGATIVE ng/mL (<50); Temazepam, Confirm NEGATIVE ng/mL (<50)
--- NOTE | 2021-12-12 07:31 | Hospitalist Progress Note ---
Date of Service December 12, 2021 Assessment & Plan (1) Alcohol withdrawal: Plan: 36-year-old female with history of alcohol abuse presenting with alcohol withdrawal. Patient drinks approximately 12 drinks daily, last drink 12/09/2021 at 1300. Alcohol level is presently 314.3. Patient is showing evidence of mild withdrawal at this level. Prior history of withdrawal seizure approximately 1 year ago She has received Valium 2 mg IV +2 mg IV in the ER as well as a banana bag IV phenobarbital x1 dose (260 mg) administered in the ER followed by 60 twice daily -> 30 bid then 30 q day LIBRIUM taper -- see protocol -AWSS with IV Ativan as needed Maintain seizure precautions Continue folic acid 1 mg p.o. daily Continue thiamine 100 mg p.o. daily Continue home gabapentin 300 mg p.o. 3 times daily Will check folic/B12 levels, start B12. Would continue folic acid/thiamine/b12 at discharge as well (2) Depression: Plan: Chronic. Patient feels Punch! is not working. We will reduce dose , psychiatry consultation concurs (3) PTSD (post-traumatic stress disorder): Plan: Patient with history of PTSD. Continue prazosin 3 mg p.o. nightly for nightmares Admission and Anticipated Discharge Date Admission Date: December 09, 2021 Results & Data Results & Data ([facility]) Vital Signs (Past 12 Hours) Vital Signs Temp Pulse Pulse Resp BP Pulse Ox O2 Del Method 12/12/21 07:11 36.6 C 87 20 124/80 98 Room Air 12/12/21 04:42 36.6 C 76 18 109/77 98 Room Air 12/11/21 23:00 87 12/12/21 00:40 36.7 C 85 20 123/79 97 Room Air 12/11/21 19:56 37 C 85 20 113/72 94 Laboratory Results 12/09/21 Range/Units 18:10 U OH-Alprazolam Confrm NEGATIVE (<25) ng/mL 7-Amino Clonazepam NEGATIVE (<25) ng/mL Ur Nordiazepam Confirm NEGATIVE (<50) ng/mL U OH-ethylflurazepam NEGATIVE (<50) ng/mL U Lorazepam Cnf GC/MS NEGATIVE (<50) ng/mL U Oxazepam Confm GC/MS NEGATIVE (<50) ng/mL Ur Temazepam Confirm NEGATIVE (<50) ng/mL U OH-Triazolam Confirm NEGATIVE (<50) ng/mL U OH-Midazolam Confirm NEGATIVE (<50) ng/mL Drug Screen Comment SEE NOTE PG Care Time/CCT Total # of Minutes Spent Total Time Spent with Patient: Total time spent is greater than 50% in coordination of care (as documented) at patient's floor/unit and/or counseling patient: Coding Diagnoses Alcohol withdrawal F10.239 Depression F32.A PTSD (post-traumatic stress disorder) F43.10
[2021-12-12] MEDS: GABAPENTIN 300 MG CAP PO SCH ×2 (07:51→14:04)
[2021-12-12] MEDS: LINACLOTIDE 145 MCG CAPSULE PO SCH (07:52)
[2021-12-12] MEDS: FOLIC ACID 1 MG TAB PO SCH (07:53)
[2021-12-12] MEDS: DULoxetine HCL 30 MG CAP PO SCH (07:53)
[2021-12-12] MEDS: PHENobarbitaL 30 MG TAB PO SCH (07:58)
[2021-12-12 08:40] LABS: Hematocrit (blood only) 34.2 % (34.1-44.9); Hemoglobin 11.4 g/dl (12.0-16.0); Mean Corpuscular Hemoglobin 32.2 pg (25.0-34.0); Mean Corpuscular Hgb Conc 33.3 g/dL (32.0-36.0); Mean Corpuscular Volume 96.6 fL (80.0-100.0); Mean Platelet Volume 10.4 fL (9.4-12.3); Platelet Count 262 K/uL (130-400); RDW Coefficient of Variation 14.6 % (11.5-14.5); RDW Standard Deviation 51.6 fL (36.4-46.3); Red Blood Count 3.54 M/uL (3.93-5.22); White Blood Count 5.16 K/ul (4.8-10.8)
[2021-12-12] MEDS ORDERED: CYANOCOBALAMIN (B-12) 500 MCG TABLET PO SCH (09:00)
[2021-12-12] MEDS ORDERED: THIAMINE HCL 100 MG TAB PO SCH (09:00)
[2021-12-12 09:04] LABS: Albumin Globulin Ratio 1.8 (0.9-2); Albumin Level 4.1 gm/dl (3.4-5.0); BUN Creatinine Ratio 9.7 (10-20); Bilirubin,Total 0.6 mg/dl (0.2-1.0); Calcium 9.1 mg/dl (8.5-10.1); Creatinine Clr Calc Pharmacy 143.4 ml/min; Est GFR (African American) 133.5 ml/min; Est GFR (Non-African American) 115.2 ml/min; Globulin 2.3 gm/dl (2.5-4.0); Magnesium 1.4 mg/dl (1.7-2.4); Potassium 3.6 mmol/L (3.5-5.1); Total Protein 6.4 gm/dl (6.0-8.3)
[2021-12-12 09:29] LABS: Folate (Folic Acid) > 22.30 ng/ml (>5.38)
[2021-12-12 09:31] LABS: Vitamin B12 195 pg/ml (180-914)
[2021-12-12] MEDS: MAGNESIUM SULFATE / D5W 1 GM/100 ML BAG IV SCH ×3 (10:51→14:06)
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
== END 2021-12-12 17:58 | disposition home or self-care (01) | DRG 897 ==
LOC: ED 17:52 → SUATTDRO 23:55 → 2E 23:55

== ENCOUNTER 2021-12-31 09:35 | Inpatient (IN) ==
[2021-12-31] MEDS ORDERED: SODIUM CHLORIDE 0.9% 1000ML 1,000 ML IV ONE ×2 (10:11→10:47)
--- NOTE | 2021-12-31 10:32 | Emergency Department Note ---
Impression & Plan Alcohol withdrawal, Chest pain, Abdominal pain ED Provider Note NAME: PHILLIP AMARO AGE: 36 SEX: F : 1985 ARRIVES VIA: Walk-In INFORMANT: Patient ED PROVIDER(S): Issa Villa DO CHIEF COMPLAINT: ETOH withdraw HPI:Patient is a 36-year-old female with a past medical history of alcohol abuse and withdrawal with previous seizures. She had an aunt within the past month that has been a trigger. She has been drinking 1/5 of vodka a day. Last drink was last night at 6 PM. She has been having nausea with one episode of vomiting. There was no blood. Denies any history of varices. History of withdraw seizures. Diffuse abdominal pain. ROS: See above HPI for pertinent positives & negatives. A total of 10 systems reviewed and were otherwise negative. PAST MEDICAL HISTORY:See Below PAST SURGICAL HISTORY:See Below FAMILY HISTORY:See Below SOCIAL HISTORY:See Below HOME MEDICATIONS:See Below ALLERGIES:See Below VITALS:See Below PHYSICAL EXAMINATION: GENERAL: Sitting up in bed, alert, disheveled, tremors present, EYE EXAM: normal conjunctiva. PERRL and EOM's grossly intact. OROPHARYNX: Dry mucous membranes LUNGS: Clear to auscultation. Normal chest wall mechanics CHEST: Reproducible anterior chest wall pain HEART: no murmurs, S1 normal and S2 normal ABDOMEN: abdomen soft, non-tender, normo-active bowel sounds, no masses, no rebound or guarding. BACK: Back is symmetrical on inspection and there is no deformity, no midline tenderness, no CVA tenderness. SKIN: no rashes and no bruising UPPER EXTREMITIES: upper extremities are grossly normal. LOWER EXTREMITIES: No pitting edema. NEURO EXAM: Normal sensorium, cranial nerves II-XII grossly intact, normal speech, no gross weakness of arms, no gross weakness of legs. Tremors of leann ateral upper and lower extremities MEDICAL DECISION MAKING: Patient is a 36-year-old alcoholic that presents the ER stopped drinking last night. Since then she notes she has been having the shakes, sick to her stomach abdominal pain and some chest pain. IV was established blood work was obtained. Labs show no significant leukocytosis or anemia. BMP along LFTs bilirubin and lipase was normal. Troponin was negative. UA was clean. Phenobarbital undetectable. COVID-negative. Alcohol was ordered but had a difficult time obtaining blood and consequently was not running prior to admission. Patient had a benign abdominal exam. Chest pain was reproducible over the anterior chest wall. It was the same as her complaint. She was given fluids and 2 mg of IV Ativan to help her calm down. She was updated bedside. Discussed with helene brush from hospitalist team admitted for further work-up. Chest x-ray was unremarkable. Triage Nursing notes reviewed. Limited review of prior medical records performed Vital Signs: reviewed and remarkable for tachy, HTN Differential diagnosis: Cardiac ischemia, aortic dissection, pulmonary embolism, pneumothorax, pneumonia, pericarditis, myocarditis, esophageal rupture, GERD, cholecystitis, pancreatitis, musculoskeletal, as well as other pathologies. ER treatment provided: See below Diagnostics interpreted by me: ECG: Sinus rhythm rate 82 Normal axis T wave inversion in lead III QTC 476 Cardiac Monitoring: An order was placed for continuous cardiac monitoring. The monitor shows a rate of 80 with sinus rhythm. Laboratory studies: As stated above and show below. Imaging studies: Portable AP upright 1 view the chest was unremarkable Consultation(s): Discussed with Dr. Hearn for further evaluation Procedures: none Critical Care: None Past Med/Surg History Medical History Alcohol abuse Alcohol intoxication Anxiety with depression Hepatic steatosis PTSD (post-traumatic stress disorder) Surgical History Previous section Social History Smoking Status: Never smoker Second Hand Exposure: No; Hx Alcohol Use: Yes Alcohol type: hard liquor Hx Substance Use: No Preferred Language: Latvian Communication Ability: Effective Computational Geneticist Required: No Beliefs That Will Affect Care: None marital status: Current Living Situation: Parent and Family Current Living Situation Comment: Parents and son How many Children do You have: 1 Feels Safe at Home: Yes Assistive Devices: None Allergies Allergies Allergy/AdvReac Type Severity Reaction Status Date / Time lactose Allergy Unknown Verified 12/09/21 23:28 Home Meds Home Medications Medication Instructions Recorded Confirmed gabapentin 300 mg capsule 300 mg PO TID 05/27/18 12/14/21 hydroxyzine pamoate 50 mg capsule 50 mg PO DAILY PRN Anxiety 05/27/18 12/14/21 (Vistaril) multivitamin 1 tab PO QAM 05/27/18 12/14/21 linaclotide 145 mcg capsule 145 mcg PO DAILY 07/10/20 12/14/21 (Linzess) prazosin 1 mg capsule 3 mg PO HS 06/08/21 12/14/21 cyclobenzaprine 10 mg tablet 10 mg PO BID PRN muscle spasms 12/09/21 12/14/21 duloxetine 30 mg capsule,delayed 30 mg PO DAILY 12/14/21 12/14/21 release Previous Rx's Medication Instructions Recorded folic acid 1 mg tablet 1,000 mcg PO DAILY #30 tabs 08/28/21 cyanocobalamin (vitamin B-12) 1,000 mcg PO DAILY #30 caps 12/12/21 1,000 mcg capsule phenobarbital 32.4 mg tablet 32.4 mg PO BID #2 tabs 12/12/21 thiamine HCl (vitamin B1) 100 mg 200 mg PO DAILY #60 tabs 12/12/21 tablet chlordiazepoxide HCl 10 mg capsule 10 mg PO TID #90 caps 12/14/21 Results & Data (ED) Vital Signs Vital Signs - 24 hr 12/31/21 09:42 12/31/21 10:41 12/31/21 11:00 Temperature 36.8 C Temperature Source Oral Pulse Rate 92 H 87 89 Pulse Rate from SpO2 Sensor 88 Respiratory Rate 20 25 H 20 Blood Pressure 145/96 H 139/98 134/99 Blood Pressure Mean 112 111 110 Pulse Oximetry 100 95 99 Oxygen Delivery Method Room Air Sepsis Recent Fever Within 48 Hours No Sepsis New/Unexplained Change in Mental Status No Sepsis Action Taken by Nursing No Action Required 12/31/21 11:30 Temperature Temperature Source Pulse Rate 90 Pulse Rate from SpO2 Sensor 89 Respiratory Rate 16 Blood Pressure Blood Pressure Mean Pulse Oximetry 99 Oxygen Delivery Method Sepsis Recent Fever Within 48 Hours Sepsis New/Unexplained Change in Mental Status Sepsis Action Taken by Nursing Laboratory Data Result diagrams: 12/31/21 11:21 12/31/21 11:21 Lab Results 12/31/21 12/31/21 12/31/21 Range/Units 10:30 10:30 10:40 WBC (4.8-10.8) K/ul RBC (3.93-5.22) M/uL Hgb (12.0-16.0) g/dl Hct (34.1-44.9) % MCV (80.0-100.0) fL MCH (25.0-34.0) pg MCHC (32.0-36.0) g/dL RDW Std Deviation (36.4-46.3) fL RDW Coeff of [place] (11.5-14.5) % Plt Count (130-400) K/uL MPV (9.4-12.3) fL Immature Gran % (Auto) % Neut % (Auto) % Lymph % (Auto) % [place] % (Auto) % Eos % (Auto) % Baso % (Auto) % Neut # (Auto) (1.4-6.5) K/uL Lymph # (Auto) (1.2-3.4) K/uL [place] # (Auto) (0.24-0.82) K/uL Eos # (Auto) (0-0.50) K/uL Baso # (Auto) (0-0.2) K/uL Immature Gran # (Auto) (0.00-0.02) K/uL Sodium (136-145) mmol/L Potassium (3.5-5.1) mmol/L Chloride (98-107) mmol/L Carbon Dioxide (21-32) mmol/L Anion Gap (3-11) BUN (6-23) mg/dl Creatinine (0.6-1.2) mg/dl Est Cr Clr Drug Dosing ml/min Est GFR ( Amer) ml/min Est GFR (Non-Af Amer) ml/min BUN/Creatinine Ratio (10-20) Glucose (70-99(Fasting)) mg/dl Calcium (8.5-10.1) mg/dl Total Bilirubin (0.2-1.0) mg/dl AST (13-39) U/L ALT (7-52) U/L Alkaline Phosphatase (34-104) U/L Troponin I High Sens (0-14) pg/ml Total Protein (6.0-8.3) gm/dl Albumin (3.4-5.0) gm/dl Globulin (2.5-4.0) gm/dl Albumin/Globulin Ratio (0.9-2) Lipase (11-82) U/L Urine Color Yellow Urine Appearance Clear (Clear) Urine pH 7.5 (4.5-7.5) Ur Specific [place] 1.019 (1.000-1.030) Urine Protein Negative (Negative) Urine Glucose (UA) Negative (Negative) Urine Ketones Negative (Negative) Urine Blood Negative (Negative) Urine Nitrite Negative (Negative) Urine Bilirubin Negative (Negative) Urine Urobilinogen Negative (Negative) Ur Leukocyte Esterase Negative (Negative) Urine Test Negative (Negative) Phenobarbital (10-40) mcg/ml SARS-CoV-2, RNA, NAAT NEGATIVE (NEGATIVE) 12/31/21 12/31/21 12/31/21 Range/Units 11:21 11:21 11:21 WBC 4.91 (4.8-10.8) K/ul RBC 4.16 (3.93-5.22) M/uL Hgb 14.0 (12.0-16.0) g/dl Hct 40.9 (34.1-44.9) % MCV 98.3 (80.0-100.0) fL MCH 33.7 (25.0-34.0) pg MCHC 34.2 (32.0-36.0) g/dL RDW Std Deviation 53.8 H (36.4-46.3) fL RDW Coeff of [place] 14.9 H (11.5-14.5) % Plt Count 190 (130-400) K/uL MPV 10.4 (9.4-12.3) fL Immature Gran % (Auto) 0.2 % Neut % (Auto) 65.2 % Lymph % (Auto) 26.1 % [place] % (Auto) 6.5 % Eos % (Auto) 1.2 % Baso % (Auto) 0.8 % Neut # (Auto) 3.20 (1.4-6.5) K/uL Lymph # (Auto) 1.28 (1.2-3.4) K/uL [place] # (Auto) 0.32 (0.24-0.82) K/uL Eos # (Auto) 0.06 (0-0.50) K/uL Baso # (Auto) 0.04 (0-0.2) K/uL Immature Gran # (Auto) 0.01 (0.00-0.02) K/uL Sodium 137 (136-145) mmol/L Potassium 4.3 (3.5-5.1) mmol/L Chloride 96 L (98-107) mmol/L Carbon Dioxide 28 (21-32) mmol/L Anion Gap 13 H (3-11) BUN 7 (6-23) mg/dl Creatinine 0.69 (0.6-1.2) mg/dl Est Cr Clr Drug Dosing 128.8 ml/min Est GFR ( Amer) 128.9 ml/min Est GFR (Non-Af Amer) 111.2 ml/min BUN/Creatinine Ratio 10.1 (10-20) Glucose 75 (70-99(Fasting)) mg/dl Calcium 10.3 H (8.5-10.1) mg/dl Total Bilirubin 0.6 (0.2-1.0) mg/dl AST 49 H (13-39) U/L ALT 27 (7-52) U/L Alkaline Phosphatase 68 (34-104) U/L Troponin I High Sens 2.4 (0-14) pg/ml Total Protein 7.8 (6.0-8.3) gm/dl Albumin 5.2 H (3.4-5.0) gm/dl Globulin 2.6 (2.5-4.0) gm/dl Albumin/Globulin Ratio 2.0 (0.9-2) Lipase 59 (11-82) U/L Urine Color Urine Appearance (Clear) Urine pH (4.5-7.5) Ur Specific [place] (1.000-1.030) Urine Protein (Negative) Urine Glucose (UA) (Negative) Urine Ketones (Negative) Urine Blood (Negative) Urine Nitrite (Negative) Urine Bilirubin (Negative) Urine Urobilinogen (Negative) Ur Leukocyte Esterase (Negative) Urine Test (Negative) Phenobarbital < 5.0 L (10-40) mcg/ml SARS-CoV-2, RNA, NAAT (NEGATIVE) 12/31/21 Range/Units 11:21 WBC (4.8-10.8) K/ul RBC (3.93-5.22) M/uL Hgb (12.0-16.0) g/dl Hct (34.1-44.9) % MCV (80.0-100.0) fL MCH (25.0-34.0) pg MCHC (32.0-36.0) g/dL RDW Std Deviation (36.4-46.3) fL RDW Coeff of [place] (11.5-14.5) % Plt Count (130-400) K/uL MPV (9.4-12.3) fL Immature Gran % (Auto) % Neut % (Auto) % Lymph % (Auto) % [place] % (Auto) % Eos % (Auto) % Baso % (Auto) % Neut # (Auto) (1.4-6.5) K/uL Lymph # (Auto) (1.2-3.4) K/uL [place] # (Auto) (0.24-0.82) K/uL Eos # (Auto) (0-0.50) K/uL Baso # (Auto) (0-0.2) K/uL Immature Gran # (Auto) (0.00-0.02) K/uL Sodium (136-145) mmol/L Potassium (3.5-5.1) mmol/L Chloride (98-107) mmol/L Carbon Dioxide (21-32) mmol/L Anion Gap (3-11) BUN (6-23) mg/dl Creatinine (0.6-1.2) mg/dl Est Cr Clr Drug Dosing ml/min Est GFR ( Amer) ml/min Est GFR (Non-Af Amer) ml/min BUN/Creatinine Ratio (10-20) Glucose (70-99(Fasting)) mg/dl Calcium (8.5-10.1) mg/dl Total Bilirubin (0.2-1.0) mg/dl AST (13-39) U/L ALT (7-52) U/L Alkaline Phosphatase (34-104) U/L Troponin I High Sens 2.6 (0-14) pg/ml Total Protein (6.0-8.3) gm/dl Albumin (3.4-5.0) gm/dl Globulin (2.5-4.0) gm/dl Albumin/Globulin Ratio (0.9-2) Lipase (11-82) U/L Urine Color Urine Appearance (Clear) Urine pH (4.5-7.5) Ur Specific [place] (1.000-1.030) Urine Protein (Negative) Urine Glucose (UA) (Negative) Urine Ketones (Negative) Urine Blood (Negative) Urine Nitrite (Negative) Urine Bilirubin (Negative) Urine Urobilinogen (Negative) Ur Leukocyte Esterase (Negative) Urine Test (Negative) Phenobarbital (10-40) mcg/ml SARS-CoV-2, RNA, NAAT (NEGATIVE) Administered Medications Discontinued Medications Sodium Chloride (Nss 1000ml) 1,000 mls @ 999 mls/hr IV .Q1H1M ONE Stop: 12/31/21 11:11 Last Infusion: 12/31/21 12:25 Dose: 0 mls/hr Documented By: Admin: 12/31/21 11:29 Dose: 999 mls/hr Documented By: MT Sodium Chloride (Nss 1000ml) 1,000 mls @ 999 mls/hr IV .Q1H1M ONE Stop: 12/31/21 11:47 Last Admin: 12/31/21 12:24 Dose: 999 mls/hr Documented By: MT Lorazepam (Lorazepam 2 Mg/2 Ml Syr) 2 mg IV NOW STA; Protocol Stop: 12/31/21 10:48 Last Admin: 12/31/21 11:29 Dose: 2 mg Documented By: MT Ondansetron HCl (Ondansetron Inj 2 Mg/Ml 2 Ml Vial) 4 mg IV NOW STA Stop: 12/31/21 10:48 Last Admin: 12/31/21 11:29 Dose: 4 mg Documented By: MT Imaging Data Radiologist's Impression: Chest X-Ray 12/31/21 10:47 SINGLE VIEW CHEST CLINICAL HISTORY: Atypical chest pain FINDINGS: An AP, portable, upright chest radiograph is compared to study dated 11/28/2021. The cardiomediastinal silhouette is unremarkable. The lungs and pleural spaces are clear. No pneumothorax is seen. The bony thorax is grossly intact. IMPRESSION: No active disease in the chest. ACT 112: Negative or not required by law. Electronically signed by: Todd Espinosa M.D. 12/31/2021 12:00 PM Discharge Plan Visit Data Chief Complaint: Alcohol Withdrawal Stated Complaint: ALCOHOL WITHDRAWAL ED Provider: Issa Villa Discharge Problem: Alcohol withdrawal, Chest pain, Abdominal pain Forms Stand Alone Forms: My [facility], Suicide Prevention Resources Prescriptions Prescriptions: No Action chlordiazepoxide HCl 10 mg capsule 10 mg PO TID Qty: 90 0RF Rx Instructions: [facility] 12/12/21- For one Month as directed duloxetine 30 mg capsule,delayed release(DR/EC) 30 mg PO DAILY Rx Instructions: [facility] 12/12-Do not stop abruptly, continue for at least 1 week and further adjustments made outpatient. multivitamin Tablet 1 tab PO QAM hydroxyzine pamoate [Vistaril] 50 mg Capsule 50 mg PO DAILY PRN (Reason: Anxiety) gabapentin 300 mg capsule 300 mg PO TID Linzess 145 mcg capsule 145 mcg PO DAILY prazosin 1 mg capsule 3 mg PO HS folic acid 1 mg tablet 1,000 mcg PO DAILY Qty: 30 0RF cyclobenzaprine 10 mg tablet 10 mg PO BID PRN (Reason: muscle spasms) cyanocobalamin (vitamin B-12) 1,000 mcg capsule 1,000 mcg PO DAILY Qty: 30 0RF thiamine HCl (vitamin B1) 100 mg tablet 200 mg PO DAILY Qty: 60 0RF phenobarbital 32.4 mg tablet 32.4 mg PO BID Qty: 2 0RF Referrals Referrals: Alicia Mcgee MD [Primary Care Provider] -
[2021-12-31] MEDS ORDERED: ONDANSETRON INJ 2 MG/ML 2 ML VIAL IV STA (10:47)
[2021-12-31] MEDS ORDERED: LORazepam 2 MG/2 ML SYR IV STA (10:47)
[2021-12-31 11:22] LABS: Pregnancy Test, Urine Negative (Negative)
[2021-12-31 11:24] LABS: Appearance Urine Clear (Clear); Bilirubin Urine Negative (Negative); Blood Urine Negative (Negative); Color Urine Yellow; Glucose Urine UA Negative (Negative); Ketones Urine Negative (Negative); Leukocyte Esterase Urine Negative (Negative); Nitrite Urine Negative (Negative); Protein Urine Negative (Negative); Specific Gravity Urine 1.019 (1.000-1.030); Urobilinogen Urine Negative (Negative); pH Urine 7.5 (4.5-7.5)
[2021-12-31 11:45] LABS: Basophils # (auto) 0.04 K/uL (0-0.2); Basophils % (auto) 0.8 %; Eosinophils # (auto) 0.06 K/uL (0-0.50); Eosinophils % (auto) 1.2 %; Hematocrit (blood only) 40.9 % (34.1-44.9); Immature Granulocytes # (auto) 0.01 K/uL (0.00-0.02); Immature Granulocytes % (auto) 0.2 %; Lymphocytes # (auto) 1.28 K/uL (1.2-3.4); Lymphocytes % (auto) 26.1 %; Mean Corpuscular Hemoglobin 33.7 pg (25.0-34.0); Mean Corpuscular Hgb Conc 34.2 g/dL (32.0-36.0); Mean Corpuscular Volume 98.3 fL (80.0-100.0); Mean Platelet Volume 10.4 fL (9.4-12.3); Monocytes # (auto) 0.32 K/uL (0.24-0.82); Monocytes % (auto) 6.5 %; Neutrophils % (auto) 65.2 %; Platelet Count 190 K/uL (130-400); RDW Coefficient of Variation 14.9 % (11.5-14.5); RDW Standard Deviation 53.8 fL (36.4-46.3); Red Blood Count 4.16 M/uL (3.93-5.22); White Blood Count 4.91 K/ul (4.8-10.8)
--- NOTE | 2021-12-31 12:01 | XRay Report ---
SINGLE VIEW CHEST CLINICAL HISTORY: Atypical chest pain FINDINGS: An AP, portable, upright chest radiograph is compared to study dated 11/28/2021. The cardiom ediastinal silhouette is unremarkable. The lungs and pleural spaces are clear. No pneumothorax is see n. The bony thorax is grossly intact. IMPRESSION: No active disease in the chest. ACT 112: Negative or not required by law. Electronically signed by: Todd Espinosa M.D. 12/31/2021 12:00 PM
[2021-12-31 12:08] LABS: Troponin I High Sensitivity 2.4 pg/ml (0-14)
[2021-12-31 12:27] LABS: Albumin Level 5.2 gm/dl (3.4-5.0); BUN Creatinine Ratio 10.1 (10-20); Bilirubin,Total 0.6 mg/dl (0.2-1.0); Calcium 10.3 mg/dl (8.5-10.1); Creatinine Clr Calc Pharmacy 128.8 ml/min; Est GFR (African American) 128.9 ml/min; Est GFR (Non-African American) 111.2 ml/min; Globulin 2.6 gm/dl (2.5-4.0); Potassium 4.3 mmol/L (3.5-5.1); Total Protein 7.8 gm/dl (6.0-8.3)
--- NOTE | 2021-12-31 12:43 | History & Physical Report ---
Date of Service December 31, 2021 Assessment & Plan (1) Alcohol withdrawal: Plan: -Admit to PCU -Patient is currently afebrile, hemodynamically stable, and stable on RA -Patient has been drinking approximately a fifth of vodka daily to help cope with her anxiety and PTSD, last drink was approximately last evening at 6pm. -Took one dose of Librium last night but no other doses since, has not been on Phenobarbital outpatient -Was given 2mg IV ativan on arrival to the ED, states it helped her symptoms but still tachycardic with obvious tremors -Patient high risk for seizures as she has a history, will give 50 mg PO Librium now and continue on high-dose taper, start CWSS protocol with seizure precautions, monitor on tele -Will give 500 mg IV thiamine now, then start 100 mg IV TID starting tomorrow until she is switched back to PO -Will FU with ethanol level -Patient is currently in intense outpatient rehab with a therapist as well, fells comfortable with both. Patient was not a candidate to be transferred to inpatient detox at this time with her risk of seizures -AM CBC, BMP, and mag (2) B12 deficiency: Plan: -Continue PO B12 daily (3) PTSD (post-traumatic stress disorder): Plan: -Continue prazosin (4) Anxiety with depression: Plan: --Continue Duloxetine, gabapentin, hold flexeril and hydroxyzine for now to prevent oversedating with librium and ativan (5) Reflux gastritis: Plan: -Likely the cause of her abdominal comfort at this time -Will start IV famotidine and PO carafate and monitor -Start a regular diet Plan The patient was seen with and discussed with Dr. Simpson at the time of admission History of Present Illness Chief Complaint: Alcohol withdrawal Primary Care Provider: Alicia Mcgee MD Radha is a 36-year-old female with a past medical history of alcohol abuse with alcohol withdrawal. Was recently discharged 12/12/2021 for alcohol withdrawal, drinking approximately 12 drinks daily at that time and who presented with EtOH of 314. She was discharged to [facility] for Vivitrol injection and follow-up with outpatient intensive therapy at [facility]. She presents to the ER with alcohol withdrawal, noted aunt in the last month which is triggered recurrence of alcohol use. Alcohol intake is 1/5 (1L)a day of liquor, vodka. Does have a history of withdrawal seizures. Last drink last night Nauseus, vomiting, tachy on admission ICU seizures admission Wants to strop drinking, working back to IOP On admission normal sodium, normal potassium, creatinine with normal baseline at admitting creatinine 0.69 High-sensitivity troponin normal. Patient received 2 mg of IV lorazepam and 2 L of saline. Per Pt: 1 month ago started drinking heavily. PTSD and panic disorder and drinks as a coping mechanism. Drinking steadily until yesterday when she stopped drinking because she had an epiphany and realized she needed to strop drinking. Last drink 6pm yesterday. Prior to thi swas drinking progressively larger amounts over the last month up to 1/5th of vodka (1L per day). Late last night started to get chest pain, tachycardia, and sweating with shaking progressively worsening last night into this morning. No vision disturbance, no tactile hallucinations. Currently following with trauma counselor, Scient[employer] counselor, and IOP therpaist. Would like to continue these after getting out seizure window. Hx of etoh withdrawal seizure x1 1 year ago. Was in ICU. Hx of pancreatitis. +abdominal pain which started a few days ago. Pain in RUQ/flank. No fevers/chills/sweats. Lipase normal on admission Takes gabapentin 300mg TID vistaril 50mg TID Cybalta 90mg daily Remeron for sleep qHS prazosin 3mg qHS for sleep/PTSD/nightmares linzess 145mcg daily Flexeril PRN Was d/c with librium taper. has not been taking librium in las tmonth, took one late last night because of shakes. Did not take while drinking Was tapered off phenobarb, has not taken since last discharge. Since getting here and getting 1x ativan feels better. Still having some shakes, chest discomfort, but improved overall. 9/10 severity coming in, 5/10 intensity now.Feels she has done very well with librium/ativan in the past. Thinks phenobarb worked last time but not sure if it was better than librium for her. Medical History: Reviewed Medications: Reviewed Surgical History: Reviewed Allergies: Reviewed Social History: Etoh as noted above. No tobacco former or current use. Has a medical marijuana card but has not used it recently. Code Status: Full Code. Surrogate DM in an emergency would be her mother Carlos Manuel Maciel. Allergies Allergy/AdvReac Type Severity Reaction Status Date / Time lactose Allergy Unknown Verified 12/09/21 23:28 Home Medications Medication Instructions Recorded Confirmed Type gabapentin 300 mg capsule 300 mg PO TID 05/27/18 12/14/21 History hydroxyzine pamoate 50 mg capsule 50 mg PO DAILY PRN Anxiety 05/27/18 12/14/21 History (Vistaril) multivitamin 1 tab PO QAM 05/27/18 12/14/21 History linaclotide 145 mcg capsule 145 mcg PO DAILY 07/10/20 12/14/21 History (Linzess) prazosin 1 mg capsule 3 mg PO HS 06/08/21 12/14/21 History folic acid 1 mg tablet 1,000 mcg PO DAILY #30 tabs 08/28/21 12/14/21 Rx cyclobenzaprine 10 mg tablet 10 mg PO BID PRN muscle spasms 12/09/21 12/14/21 History cyanocobalamin (vitamin B-12) 1,000 mcg PO DAILY #30 caps 12/12/21 12/14/21 Rx 1,000 mcg capsule phenobarbital 32.4 mg tablet 32.4 mg PO BID #2 tabs 12/12/21 12/14/21 Rx thiamine HCl (vitamin B1) 100 mg 200 mg PO DAILY #60 tabs 12/12/21 12/14/21 Rx tablet chlordiazepoxide HCl 10 mg capsule 10 mg PO TID #90 caps 12/14/21 12/14/21 Rx duloxetine 30 mg capsule,delayed 30 mg PO DAILY 12/14/21 12/14/21 History release Past Med/Surg History Medical History (Updated 12/31/21 @ 13:33 by Brodie Lyon PA-C) Alcohol abuse Alcohol dependence Alcohol intoxication Alcohol withdrawal Anxiety with depression Breast lump on left side at 11 o'clock position Enteric intussusception Hepatic steatosis Hypokalemia Hypomagnesemia PTSD (post-traumatic stress disorder) Reflux gastritis Transaminitis Surgical History Previous section Social History Smoking Status: Never smoker Second Hand Exposure: No; Hx Alcohol Use: Yes Alcohol type: hard liquor Hx Substance Use: No Preferred Language: Urdu Communication Ability: Effective 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 All systems have been reviewed and are otherwise negative. Physical Exam Physical Exam: Physical Exam: General: In no acute distress, stated age, well-nourished, good hygiene HEENT: Normocephalic, atraumatic, no scleral icterus, pupils around round, symmetrical, and reactive to light, moist mucus membranes, trachea midline, no thyromegaly Chest/Pulm: No respiratory distress, symmetrical chest expansion, clear breath sounds throughout Cardiac: tachycardic rate, regular rhythm, no murmurs noted Abdomen: Negative for ascites and bruising, normoactive bowel sounds, soft, tender to palpation in the left upper and lower quadrants Musculoskeletal: Symmetrical and without signs of acute trauma, upper and lower extremities with full ROM Extremities: Radial, dorsalis pedis, and posterior tibial pulses are intact and symmetrical, no edema noted in the BL LE's Skin: Warm, dry, no rashes , lesions, or scars noted Neuro: Alert and oriented to person, place, month, year, and president, no focal defects, CN II-XII tested and intact, positive resting tremor in the BL upper extremities Psych: No acute distress, calm and cooperative during the exam, no currently having visual, auditory, or tactile hallucinations Results & Data Results & Data ([facility]) Vital Signs (Past 12 Hours) Vital Signs Temp Pulse Resp BP Pulse Ox O2 Del Method 12/31/21 11:30 90 16 99 12/31/21 11:00 89 20 134/99 99 12/31/21 10:41 87 25 H 139/98 95 12/31/21 09:42 36.8 C 92 H 20 145/96 H 100 Room Air Laboratory Results Abnormal lab results 12/31/21 12/31/2122 Range/Units 11:21 11:21 11:21 RDW Std Deviation 53.8 H (36.4-46.3) fL RDW Coeff of Dallin 14.9 H (11.5-14.5) % Chloride 96 L (98-107) mmol/L Anion Gap 13 H (3-11) Calcium 10.3 H (8.5-10.1) mg/dl AST 49 H (13-39) U/L Albumin 5.2 H (3.4-5.0) gm/dl Phenobarbital < 5.0 L (10-40) mcg/ml Diagnostic Findings Chest X-Ray 12/31/21 10:47 SINGLE VIEW CHEST CLINICAL HISTORY: Atypical chest pain FINDINGS: An AP, portable, upright chest radiograph is compared to study dated 11/28/2021. The cardiomediastinal silhouette is unremarkable. The lungs and pleural spaces are clear. No pneumothorax is seen. The bony thorax is grossly intact. IMPRESSION: No active disease in the chest. ACT 112: Negative or not required by law. Electronically signed by: Todd Espinosa M.D. 12/31/2021 12:00 PM ECG Additional Comments: Normal sinus rhythm Nonspecific T wave abnormality Prolonged QT Abnormal ECG When compared with ECG of 09-DEC-2021 19:10, No significant change was found Code Status & VTE Plan Code Status Full code VTE Prophylaxis Plan VTE Prophylaxis will be ordered: Yes Supervising Physician Co-Signing Physician Notes Patient seen and examined, chart reviewed, case discussed with Brodie Lyon PA-C and I agree with the assessment and plan as above except as otherwise noted Labs and images reviewed Radha is a 36-year-old female with a past medical history of alcohol abuse with alcohol withdrawal. Was recently discharged 12/12/2021 for alcohol withdrawal, drinking approximately 12 drinks daily at that time and who presented with EtOH of 314. She was discharged to [facility] for Vivitrol injection and follow-up with outpatient intensive therapy at [facility]. She presents to the ER with alcohol withdrawal, noted aunt in the last month which is triggered recurrence of alcohol use. Alcohol intake is 1/5 (1L)a day of liquor, vodka. Does have a history of withdrawal seizures. Last drink last night Nauseus, vomiting, tachy on admission ICU seizures admission Wants to strop drinking, working back to IOP On admission normal sodium, normal potassium, creatinine with normal baseline at admitting creatinine 0.69 High-sensitivity troponin normal. Patient received 2 mg of IV lorazepam and 2 L of saline. Per Pt: 1 month ago started drinking heavily. PTSD and panic disorder and drinks as a coping mechanism. Drinking steadily until yesterday when she stopped drinking because she had an epiphany and realized she needed to strop drinking. Last drink 6pm yesterday. Prior to thi swas drinking progressively larger amounts over the last month up to 1/5th of vodka (1L per day). Late last night started to get chest pain, tachycardia, and sweating with shaking progressively worsening last night into this morning. No vision disturbance, no tactile hallucinations. Currently following with trauma counselor, Scientology counselor, and [facility] therpaist. Would like to continue these after getting out seizure window. Hx of etoh withdrawal seizure x1 1 year ago. Was in ICU. Hx of pancreatitis. +abdominal pain which started a few days ago. Pain in RUQ/flank. No fevers/chills/sweats. Lipase normal on admission Takes gabapentin 300mg TID vistaril 50mg TID Cybalta 90mg daily Remeron for sleep qHS prazosin 3mg qHS for sleep/PTSD/nightmares linzess 145mcg daily Flexeril PRN Was d/c with librium taper. has not been taking librium in las tmonth, took one late last night because of shakes. Did not take while drinking Was tapered off phenobarb, has not taken since last discharge. Since getting here and getting 1x ativan feels better. Still having some shakes, chest discomfort, but improved overall. 9/10 severity coming in, 5/10 intensity now.Feels she has done very well with librium/ativan in the past. Thinks phenobarb worked last time but not sure if it was better than librium for her. Medical History: Reviewed Medications: Reviewed Surgical History: Reviewed Allergies: Reviewed Social History: Etoh as noted above. No tobacco former or current use. Has a medical marijuana card but has not used it recently. Code Status: Full Code. Surrogate DM in an emergency would be her mother Carlos Manuel Maciel. PG Care Time/CCT Total # of Minutes Spent Total Time Spent with Patient: Total time spent is greater than 50% in coordination of care (as documented) at patient's floor/unit and/or counseling patient: [place] [address] Initial Inpt Care Lvl 3 Patient Type Established Medical Decision Making High Complexity Diagnoses Alcohol withdrawal F10.239 B12 deficiency E53.8 PTSD (post-traumatic stress disorder) F43.10 Anxiety with depression F41.8 Reflux gastritis K29.60
[2021-12-31] MEDS ORDERED: THIAMINE HCL 500 MG in SODIUM CHLORIDE 0.9% 50 ML IV STA (13:31)
[2021-12-31] MEDS ORDERED: chlordiazePOXIDE HCl 25 MG CAP PO ONE (13:45)
[2021-12-31] MEDS ORDERED: LORazepam 3 MG in SYRINGE 1.5 ML IV PRN (13:47)
[2021-12-31] MEDS ORDERED: Ativan IV Alcohol Withdrawal--Active Protocol IV PRN (13:47)
[2021-12-31] MEDS ORDERED: LORazepam 1 MG in SYRINGE 0.5 ML IV PRN (13:47)
[2021-12-31] MEDS ORDERED: LORazepam 2 MG in SYRINGE 1 ML IV PRN (13:47)
[2021-12-31] MEDS ORDERED: chlordiazePOXIDE ALCOHOL WITHDRAWL 50MG PO STA (16:02)
[2021-12-31] MEDS: chlordiazePOXIDE HCl 25 MG CAP PO SCH ×2 (17:28→21:57)
[2021-12-31] MEDS: MULTIVITAMIN TAB PO SCH (17:29)
[2021-12-31] MEDS: GABAPENTIN 300 MG CAP PO SCH ×2 (17:29→20:10)
[2021-12-31] MEDS: FAMOTIDINE 20 MG in SYRINGE 3 ML IV SCH (17:30)
[2021-12-31] MEDS: SUCRALFATE 1 GM/10 ML UDC PO SCH ×2 (17:30→20:10)
--- NOTE | 2021-12-31 18:00 | Electrocardiogram Report ---
Test Reason : Blood Pressure : / mmHG Vent. Rate : 082 BPM Atrial Rate : 082 BPM P-R Int : 128 ms QRS Dur : 078 ms QT Int : 408 ms P-R-T Axes : 010 013 -11 degrees QTc Int : 476 ms Normal sinus rhythm Nonspecific T wave abnormality Prolonged QT Abnormal ECG When compared with ECG of 09-DEC-2021 19:10, No significant change was found Confirmed by Mike Brown ([id number]) on 12/31/2021 5:59:48 PM Referred By: REFERRED SELF Confirmed By:Oren Brown
[2021-12-31] MEDS ORDERED: LORazepam 1 MG in SYRINGE 0 ML IV PRN (19:18)
[2021-12-31] MEDS ORDERED: LORazepam 2 MG in SYRINGE 0 ML IV PRN (19:18)
[2021-12-31] MEDS ORDERED: LORazepam 3 MG in SYRINGE 0 ML IV PRN (19:19)
[2021-12-31] MEDS: PRAZOSIN HCL 1 MG CAP PO SCH (20:10)
[2021-12-31] MEDS ORDERED: KETOROLAC TROMETHAMINE 15 MG/ML VIAL IV ONE (21:57)
[2022-01-01] MEDS: chlordiazePOXIDE HCl 25 MG CAP PO SCH ×4 (03:12→23:57)
[2022-01-01 07:05] LABS: Hematocrit (blood only) 34.9 % (34.1-44.9); Mean Corpuscular Hemoglobin 33.4 pg (25.0-34.0); Mean Corpuscular Hgb Conc 34.4 g/dL (32.0-36.0); Mean Corpuscular Volume 97.2 fL (80.0-100.0); Mean Platelet Volume 10.4 fL (9.4-12.3); Platelet Count 147 K/uL (130-400); RDW Coefficient of Variation 14.3 % (11.5-14.5); RDW Standard Deviation 51.3 fL (36.4-46.3); Red Blood Count 3.59 M/uL (3.93-5.22); White Blood Count 4.86 K/ul (4.8-10.8)
[2022-01-01 07:30] LABS: BUN Creatinine Ratio 10.5 (10-20); Calcium 8.6 mg/dl (8.5-10.1); Est GFR (African American) 116.1 ml/min; Est GFR (Non-African American) 100.2 ml/min; Magnesium 1.3 mg/dl (1.7-2.4); Potassium 4.3 mmol/L (3.5-5.1)
[2022-01-01] MEDS: LINACLOTIDE 145 MCG CAPSULE PO SCH (08:04)
[2022-01-01] MEDS: MULTIVITAMIN TAB PO SCH (08:04)
[2022-01-01] MEDS: SUCRALFATE 1 GM/10 ML UDC PO SCH ×4 (08:04→19:40)
[2022-01-01] MEDS: CYANOCOBALAMIN (B-12) 500 MCG TABLET PO SCH (08:05)
[2022-01-01] MEDS: FAMOTIDINE 20 MG in SYRINGE 3 ML IV SCH ×2 (08:05→19:44)
[2022-01-01] MEDS: GABAPENTIN 300 MG CAP PO SCH ×3 (08:05→19:37)
[2022-01-01] MEDS: DULoxetine HCL 30 MG CAP PO SCH (08:05)
[2022-01-01] MEDS: FOLIC ACID 1 MG TAB PO SCH (08:05)
[2022-01-01] MEDS: MAGNESIUM OXIDE 400 MG TAB PO SCH ×2 (09:37→19:38)
[2022-01-01] MEDS: MAGNESIUM SULFATE / D5W 1 GM/100 ML BAG IV SCH ×3 (09:37→13:32)
--- NOTE | 2022-01-01 13:47 | Hospitalist Progress Note ---
Date of Service January 01, 2022 Assessment & Plan (1) Alcohol withdrawal: Plan: -Patient is currently afebrile, hemodynamically stable, and stable on RA -Patient has been drinking approximately a fifth of vodka daily to help cope with her anxiety and PTSD, last drink was approximately 10/2 at 6pm. -Took one dose of Librium last night but no other doses since, has not been on Phenobarbital outpatient -Was given 2mg IV ativan on arrival to the ED, states it helped her symptoms but still tachycardic with obvious tremors -Patient high risk for seizures as she has a history, will give 50 mg PO Librium now and continue on high-dose taper, start CWSS protocol with seizure precautions, monitor on tele -Pleating high-dose thiamine protocol today, switch to daily oral tomorrow -Patient is currently in intense outpatient rehab with a therapist as well, fells comfortable with both. Patient was not a candidate to be transferred to inpatient detox at this time with her risk of seizures Symptoms greatly improved 01/01, stable and doing well possible outpatient completion of Librium taper 01/02. Patient comfortable with this -AM CBC, BMP, and mag (2) B12 deficiency: Plan: -Continue PO B12 daily (3) PTSD (post-traumatic stress disorder): Plan: -Continue prazosin (4) Anxiety with depression: Plan: --Continue Duloxetine, gabapentin, hold flexeril and hydroxyzine for now to prevent oversedating with librium and ativan (5) Reflux gastritis: Plan: -Likely the cause of her abdominal comfort at this time - IV famotidine and PO carafate and monitor Continue regular diet Improved to 01/01 Admission and Anticipated Discharge Date Admission Date: December 31, 2021 Subjective Doing well overnight. Tremors greatly improved with Librium protocol. No seizures. Skin is warm and dry. Minimal shaking this morning. No hallucinations. Feels well, notes that she is now moving towards day 3 since last drink and feels much less shaky than she has with previous withdrawal and with her seizures. If doing well and no breakthrough doses of Ativan, comfortable with discharge on Librium taper tomorrow. No nausea/vomiting/diarrhea/chest pain/chest pressure Review of Systems Review of Systems: All systems reviewed & are unremarkable except as noted in Subjective Physical Exam Physical Exam: General: A&Ox3. NAD. Cooperative. HEENT: Atraumatic, normocephalic./Hearing grossly intact. Pupils equal and reactive to light. Pulm: CTAB A&P. -wheezes, -rales, -rhonchi. Symmetrical chest rise. No increase in work of breathing. No respiratory distress. Cardiac: RRR, -mrg. Radial pulses intact and symmetrical. Abdominal: Nontender, nondistended, soft. BS present. Extremities: Warm, dry. Overnight Caregiver strength and hip flexion intact and symmetrical. Minimal tremor. Results & Data Results & Data ([facility]) Vital Signs (Past 12 Hours) Vital Signs Temp Pulse Pulse Resp BP BP Pulse Ox 01/01/22 09:02 78 01/01/22 08:03 36.5 C 73 18 131/84 98 01/01/22 03:18 36.4 C L 78 20 123/87 95 O2 Del Method 01/01/22 09:02 01/01/22 08:03 Room Air 01/01/22 03:18 Room Air PG Care Time/CCT Total # of Minutes Spent Total Time Spent with Patient: Total time spent is greater than 50% in coordination of care (as documented) at patient's floor/unit and/or counseling patient: Coding Level of Care Code 65996 Subseq Hosp Care Lvl 2 Diagnoses Alcohol withdrawal F10.239 B12 deficiency E53.8 PTSD (post-traumatic stress disorder) F43.10 Anxiety with depression F41.8 Reflux gastritis K29.60
[2022-01-01] MEDS ORDERED: ACETAMINOPHEN 325 MG TAB ONE (15:10)
[2022-01-01] MEDS: PRAZOSIN HCL 1 MG CAP PO SCH (19:37)
[2022-01-02 07:12] LABS: Hematocrit (blood only) 38.1 % (34.1-44.9); Mean Corpuscular Hemoglobin 33.8 pg (25.0-34.0); Mean Corpuscular Hgb Conc 34.1 g/dL (32.0-36.0); Mean Platelet Volume 10.9 fL (9.4-12.3); Platelet Count 144 K/uL (130-400); RDW Coefficient of Variation 14.3 % (11.5-14.5); RDW Standard Deviation 51.8 fL (36.4-46.3); Red Blood Count 3.85 M/uL (3.93-5.22); White Blood Count 4.56 K/ul (4.8-10.8)
[2022-01-02 07:37] LABS: BUN Creatinine Ratio 10.3 (10-20); Calcium 9.3 mg/dl (8.5-10.1); Est GFR (African American) 112.6 ml/min; Est GFR (Non-African American) 97.1 ml/min; Potassium 3.6 mmol/L (3.5-5.1)
[2022-01-02] MEDS: chlordiazePOXIDE HCl 25 MG CAP PO SCH ×3 (08:06→20:39)
[2022-01-02] MEDS: MAGNESIUM OXIDE 400 MG TAB PO SCH ×2 (08:07→20:30)
[2022-01-02] MEDS: GABAPENTIN 300 MG CAP PO SCH ×3 (08:07→20:30)
[2022-01-02] MEDS: DULoxetine HCL 30 MG CAP PO SCH (08:07)
[2022-01-02] MEDS: CYANOCOBALAMIN (B-12) 500 MCG TABLET PO SCH (08:08)
[2022-01-02] MEDS: LINACLOTIDE 145 MCG CAPSULE PO SCH (08:08)
[2022-01-02] MEDS: MULTIVITAMIN TAB PO SCH (08:08)
[2022-01-02] MEDS: FOLIC ACID 1 MG TAB PO SCH (08:08)
[2022-01-02] MEDS: FAMOTIDINE 20 MG in SYRINGE 3 ML IV SCH (08:09)
[2022-01-02] MEDS: SUCRALFATE 1 GM/10 ML UDC PO SCH ×3 (08:09→16:49)
--- NOTE | 2022-01-02 08:27 | Hospitalist Progress Note ---
Date of Service January 02, 2022 Assessment & Plan (1) Alcohol withdrawal: Plan: -Patient has been drinking approximately a fifth of vodka daily to help cope with her anxiety and PTSD, last drink was approximately 10/2 at 6pm. - -Was given 2mg IV ativan on arrival to the ED, states it helped her symptoms but still tachycardic with obvious tremors -Patient is currently in intense outpatient rehab with a therapist as well, fells comfortable with both. Symptoms greatly improved we will continue with Librium taper dose to 25 3 times daily add phenobarbital very low-dose 50 twice daily encourage naltrexone at time of discharge. Encouraged behavioral therapy or psychiatric therapy to work on her PTSD and anxiety which have a plan her alcohol abuse (2) B12 deficiency: Plan: -Continue PO B12 daily (3) PTSD (post-traumatic stress disorder): Plan: -Continue prazosin (4) Anxiety with depression: Plan: --Continue Duloxetine, gabapentin, hold flexeril and hydroxyzine for now to prevent oversedating with librium and ativan (5) Reflux gastritis: Plan: -Likely the cause of her abdominal comfort at this time Continues on PPI Continue regular diet Admission and Anticipated Discharge Date Admission Date: December 31, 2021 Subjective Patient has still some complaints of diaphoresis and anxiety. Patient admits to self discontinuing Librium dosing at home. We discussed possibly talking to inpatient psychiatry for inpatient psychological stay which she refuses at this time. Review of Systems Review of Systems: Mild distress and feels clammy and fatigued no headache, no visual changes no speech or swallowing issues no chest pain, pressure or palpitations no shortness of breath, cough or wheezes no abdominal pain, nausea or vomiting, diarrhea or constipation no dysuria, hematuria or frequency no focal joint pain or swelling no back pain, CVA tenderness or radicular pain no bruising, bleeding or rashes no focal signs of weakness or numbness or altered sensation Still having issues with anxiety or depression.. Physical Exam Physical Exam: The patient appeared stable Vital signs as documented. Lungs are clear to auscultation and appear unlabored Cardiac exam, Rhythm is regular.. No murmurs, rubs or gallops. Abdominal exam reveals normal bowel sounds, soft non tender, no masses Extremities are nonedematous and both pedal pulses are normal. Neurologic exam is alert and oriented, no focal loss of strength or sensation Skin is without bruises or rashes Psychologically is without concerns for anxiety or depression. Results & Data Results & Data ([facility]) Vital Signs (Past 12 Hours) Vital Signs Temp Pulse Pulse Resp BP Pulse Ox O2 Del Method 01/02/22 07:36 97.7 F 83 18 115/80 95 Room Air 01/02/22 03:00 97.7 F 87 18 107/74 96 Room Air 01/01/22 22:46 98.2 F 71 16 121/81 96 Room Air 01/01/22 22:45 78 PG Care Time/CCT Total # of Minutes Spent Total Time Spent with Patient: Total time spent is greater than 50% in coordination of care (as documented) at patient's floor/unit and/or counseling patient: Coding Level of Care Code 55903 Subseq Hosp Care Lvl 2 Diagnoses Alcohol withdrawal F10.239 B12 deficiency E53.8 PTSD (post-traumatic stress disorder) F43.10 Anxiety with depression F41.8 Reflux gastritis K29.60
[2022-01-02] MEDS ORDERED: LORazepam 1 MG in SYRINGE 0 ML IV PRN (08:29)
[2022-01-02] MEDS: PANTOprazole 40 MG TAB PO SCH (09:47)
[2022-01-02] MEDS: ACETAMINOPHEN 325 MG TAB PO PRN ×2 (12:21→20:39)
[2022-01-02] MEDS: PRAZOSIN HCL 1 MG CAP PO SCH (20:31)
[2022-01-02] MEDS: PHENobarbitaL 15 MG TAB PO SCH (20:39)
[2022-01-03] MEDS: chlordiazePOXIDE HCl 25 MG CAP PO SCH ×2 (06:20→13:42)
[2022-01-03 07:25] LABS: BUN Creatinine Ratio 10.3 (10-20); Calcium 9.3 mg/dl (8.5-10.1); Est GFR (African American) 112.6 ml/min; Est GFR (Non-African American) 97.1 ml/min; Potassium 3.8 mmol/L (3.5-5.1)
[2022-01-03 07:41] LABS: Hematocrit (blood only) 41.2 % (34.1-44.9); Hemoglobin 13.4 g/dl (12.0-16.0); Mean Platelet Volume 11.9 fL (9.4-12.3); Platelet Count 112 K/uL (130-400)
[2022-01-03 07:44] LABS: Mean Corpuscular Hemoglobin 33.1 pg (25.0-34.0); Mean Corpuscular Hgb Conc 32.5 g/dL (32.0-36.0); Mean Corpuscular Volume 101.7 fL (80.0-100.0); RDW Coefficient of Variation 14.2 % (11.5-14.5); RDW Standard Deviation 53.3 fL (36.4-46.3); Red Blood Count 4.05 M/uL (3.93-5.22)
[2022-01-03] MEDS: MAGNESIUM OXIDE 400 MG TAB PO SCH (07:55)
[2022-01-03] MEDS: PANTOprazole 40 MG TAB PO SCH (07:55)
[2022-01-03] MEDS: GABAPENTIN 300 MG CAP PO SCH ×2 (07:55→13:42)
[2022-01-03] MEDS: LINACLOTIDE 145 MCG CAPSULE PO SCH (07:55)
[2022-01-03] MEDS: CYANOCOBALAMIN (B-12) 500 MCG TABLET PO SCH (07:56)
[2022-01-03] MEDS: DULoxetine HCL 30 MG CAP PO SCH (07:56)
[2022-01-03] MEDS: FOLIC ACID 1 MG TAB PO SCH (07:56)
[2022-01-03] MEDS: MULTIVITAMIN TAB PO SCH (07:56)
[2022-01-03] MEDS: PHENobarbitaL 15 MG TAB PO SCH (09:11)
--- NOTE | 2022-01-03 19:21 | Discharge Summary ---
Date of Service January 03, 2022 Admission HPI Per Admitting Provider Radha is a 36-year-old female with a past medical history of alcohol abuse with alcohol withdrawal. Was recently discharged 12/12/2021 for alcohol withdrawal, drinking approximately 12 drinks daily at that time and who presented with EtOH of 314. She was discharged to [place] for Vivitrol injection and follow-up with outpatient intensive therapy at [facility]. She presents to the ER with alcohol withdrawal, noted aunt in the last month which is triggered recurrence of alcohol use. Alcohol intake is 1/5 (1L)a day of liquor, vodka. Does have a history of withdrawal seizures. Last drink last night Nauseus, vomiting, tachy on admission ICU seizures admission Wants to strop drinking, working back to [facility] On admission normal sodium, normal potassium, creatinine with normal baseline at admitting creatinine 0.69 High-sensitivity troponin normal. Patient received 2 mg of IV lorazepam and 2 L of saline. Per Pt: 1 month ago started drinking heavily. PTSD and panic disorder and drinks as a coping mechanism. Drinking steadily until yesterday when she stopped drinking because she had an epiphany and realized she needed to strop drinking. Last drink 6pm yesterday. Prior to thi swas drinking progressively larger amounts over the last month up to 1/5th of vodka (1L per day). Late last night started to get chest pain, tachycardia, and sweating with shaking progressively worsening last night into this morning. No vision disturbance, no tactile hallucinations. Currently following with trauma counselor, [employer] counselor, and [facility] therpaist. Would like to continue these after getting out seizure window. Hx of etoh withdrawal seizure x1 1 year ago. Was in ICU. Hx of pancreatitis. +abdominal pain which started a few days ago. Pain in RUQ/flank. No fevers/chills/sweats. Lipase normal on admission Takes gabapentin 300mg TID vistaril 50mg TID Cybalta 90mg daily Remeron for sleep qHS prazosin 3mg qHS for sleep/PTSD/nightmares linzess 145mcg daily Flexeril PRN Was d/c with librium taper. has not been taking librium in las tmonth, took one late last night because of shakes. Did not take while drinking Was tapered off phenobarb, has not taken since last discharge. Since getting here and getting 1x ativan feels better. Still having some shakes, chest discomfort, but improved overall. 9/10 severity coming in, 5/10 intensity now.Feels she has done very well with librium/ativan in the past. Thinks phenobarb worked last time but not sure if it was better than librium for her. Medical History: Reviewed Medications: Reviewed Surgical History: Reviewed Allergies: Reviewed Social History: Etoh as noted above. No tobacco former or current use. Has a medical marijuana card but has not used it recently. Code Status: Full Code. Surrogate DM in an emergency would be her mother Carlos Manuel nelson. Principal Diagnosis Alcohol abuse Alcohol withdrawal Anxiety Discharge Exam The patient appeared well nourished and normally developed. Vital signs as documented. Head exam is normocephalic atraumatic Neck is without JVD, thyromegaly, or carotid bruits. Lungs are clear to auscultation, no focal loss of breath sounds Cardiac exam, Rhythm is regular.. No murmurs, rubs or gallops. Abdominal exam reveals normal bowel sounds, soft non tender, no masses Extremities are nonedematous and both pedal pulses are present Neurologic exam is alert and oriented, no focal loss of strength or sensation Skin is without bruises or rashes Psychologically is without concerns for anxiety or depression.. Discharge Data Allergies Allergy/AdvReac Type Severity Reaction Status Date / Time lactose Allergy Unknown Verified 12/09/21 23:28 Hospital Course (1) Alcohol withdrawal: -Patient has been drinking approximately a fifth of vodka daily to help cope wi th her anxiety and PTSD, last drink was approximately 10/2 at 6pm. She also self discontinued any of her benzodiazepines that she was given for tapering dose of her withdrawal which likely exacerbated her anxiety and PTSD and made things worse -Discharged on tapering doses of Librium and a few days of phenobarbital -Patient is currently in intense outpatient rehab with a therapist as well, fells comfortable with both. Encouraged behavioral therapy or psychiatric therapy to work on her PTSD and anxiety which have a plan her alcohol abuse (2) B12 deficiency: -Continue PO multiple VB vitamins and multiple vitamins (3) PTSD (post-traumatic stress disorder): -Continue prazosin (4) Anxiety with depression: --Continue Duloxetine, gabapentin, (5) Reflux gastritis: -Likely the cause of her abdominal comfort at this time Continues on PPI alcohol avoidance will also help Continue regular diet Total Time Total Time Spent Total Time Spent (In Minutes): It required greater than 30 minutes to prepare this patient for discharge Discharge Plan Discharge Items Patient Disposition: Home - Self-Care Reason For Visit: ALCOHOL WITHDRAWAL Discharge Diagnosis: alcohol withdrawal Activity: Resume your previous activity Non-emergency contact: Primary Care Provider Call non-emergency contact if: your symptoms worsen Follow-up/Referrals: Alicia Mcgee MD [Primary Care Provider] - Diet: Regular Addtl Attending Provider Instructions: Radha, total abstinence from alcohol is your only hope to beat this over the last few months you have had previous prescriptions for medications, I would encourage you to take the ones you are not using back to the pharmacy for safe disposal. please do not stop your tapering doses until complete if you think you are having side affects please contact a health care provider for advice Pending Studies at Discharge: No Stand-Alone Forms: My [facility] [employer], Smoking Cessation Medications and DC Order Prescriptions: Continued duloxetine 30 mg capsule,delayed release(DR/EC) 30 mg PO DAILY Rx Instructions: [facility] 12/12-Do not stop abruptly, continue for at least 1 week and further adjustments made outpatient. multivitamin Tablet 1 tab PO QAM hydroxyzine pamoate [Vistaril] 50 mg Capsule 50 mg PO DAILY PRN (Reason: Anxiety) gabapentin 300 mg capsule 300 mg PO TID Linzess 145 mcg capsule 145 mcg PO DAILY prazosin 1 mg capsule 3 mg PO HS phenobarbital 32.4 mg tablet 32.4 mg PO BID Qty: 8 0RF cyclobenzaprine 10 mg tablet 10 mg PO BID PRN (Reason: muscle spasms) cyanocobalamin (vitamin B-12) 1,000 mcg capsule 1,000 mcg PO DAILY Qty: 30 0RF Changed chlordiazepoxide HCl 10 mg capsule 10 mg PO UD Qty: 73 0RF Rx Instructions: 2pills 3xa day x 3 days-> 2 am, 1 midday 2pm x 3d ->1am 1 midday2 pm x3d - >1tid x 3d->1 bid x3d->1 hs Discontinued folic acid 1 mg tablet 1,000 mcg PO DAILY Qty: 30 0RF thiamine HCl (vitamin B1) 100 mg tablet 200 mg PO DAILY Qty: 60 0RF Discharge Orders: Discharge Order (Routine); Ordered 01/03/22 Ordered By: Justin Oreilly/Other Patient Handouts: ED Alcohol Withdrawal, ED Alcohol Intoxication Admission Data Admit Date/Time: 12/31/21 13:16 Attending Provider: Justin Bustamante Admit Provider: Sylvester Simpson Primary Care Provider: Alicia Mcgee Other Interventions: Discharge Summary Assessment (RN) Last Done: 01/03/22 15:18 Coding Level of Care Code D/C DAY MANAGEMENT >30 MINS Diagnoses Alcohol withdrawal F10.239 B12 deficiency E53.8 PTSD (post-traumatic stress disorder) F43.10 Anxiety with depression F41.8 Reflux gastritis K29.60
== END 2022-01-03 16:04 | disposition home or self-care (01) | DRG 897 ==
LOC: ED 09:35 → SUATTDRO 13:16 → 2S 13:16
DX: R10.9 Unspecified abdominal pain; Y90.8 Blood alcohol level of 240 mg/100 ml or more; K21.9 Gastro-esophageal reflux disease without esophagitis; F41.8 Other specified anxiety disorders; Z91.011 Allergy to milk products; Z91.14 Patient's other noncompliance with medication regimen; Z79.899 Other long term (current) drug therapy; F43.10 Post-traumatic stress disorder, unspecified; E53.8 Deficiency of other specified B group vitamins; F10.239 Alcohol dependence with withdrawal, unspecified

== ENCOUNTER 2022-02-01 13:22 | Inpatient (IN) ==
[2022-02-01 14:14] LABS: Basophils # (auto) 0.09 K/uL (0-0.2); Basophils % (auto) 0.9 %; Eosinophils # (auto) 0.05 K/uL (0-0.50); Eosinophils % (auto) 0.5 %; Hematocrit (blood only) 38.8 % (34.1-44.9); Hemoglobin 13.8 g/dl (12.0-16.0); Immature Granulocytes # (auto) 0.03 K/uL (0.00-0.02); Immature Granulocytes % (auto) 0.3 %; Lymphocytes # (auto) 4.49 K/uL (1.2-3.4); Lymphocytes % (auto) 43.1 %; Mean Corpuscular Hemoglobin 32.3 pg (25.0-34.0); Mean Corpuscular Hgb Conc 35.6 g/dL (32.0-36.0); Mean Corpuscular Volume 90.9 fL (80.0-100.0); Mean Platelet Volume 10.3 fL (9.4-12.3); Monocytes # (auto) 0.79 K/uL (0.24-0.82); Monocytes % (auto) 7.6 %; Neutrophils # (auto) 4.96 K/uL (1.4-6.5); Neutrophils % (auto) 47.6 %; Platelet Count 277 K/uL (130-400); RDW Coefficient of Variation 13.2 % (11.5-14.5); RDW Standard Deviation 43.9 fL (36.4-46.3); Red Blood Count 4.27 M/uL (3.93-5.22); White Blood Count 10.41 K/ul (4.8-10.8)
[2022-02-01 14:37] LABS: Appearance Urine Clear (Clear); Bilirubin Urine Negative (Negative); Blood Urine Negative (Negative); Color Urine Yellow; Glucose Urine UA Negative (Negative); Ketones Urine Negative (Negative); Leukocyte Esterase Urine Negative (Negative); Nitrite Urine Negative (Negative); Protein Urine Negative (Negative); Specific Gravity Urine 1.003 (1.000-1.030); Urobilinogen Urine Negative (Negative)
[2022-02-01 14:38] LABS: Albumin Globulin Ratio 1.6 (0.9-2); BUN Creatinine Ratio 9.1 (10-20); Bilirubin,Total 0.5 mg/dl (0.2-1.0); Calcium 8.9 mg/dl (8.5-10.1); Creatinine Clr Calc Pharmacy 134.7 ml/min; Est GFR (African American) 130.8 ml/min; Est GFR (Non-African American) 112.9 ml/min; Globulin 2.5 gm/dl (2.5-4.0); Potassium 2.6 mmol/L (3.5-5.1); Total Protein 6.5 gm/dl (6.0-8.3)
--- NOTE | 2022-02-01 15:13 | Electrocardiogram Report ---
Test Reason : Blood Pressure : / mmHG Vent. Rate : 103 BPM Atrial Rate : 103 BPM P-R Int : 114 ms QRS Dur : 084 ms QT Int : 372 ms P-R-T Axes : 046 038 -70 degrees QTc Int : 487 ms Sinus tachycardia Abnormal ECG When compared with ECG of 31-DEC-2021 11:39, T wave inversion more evident in Inferior leads Inverted T waves have replaced nonspecific T wave abnormality in Anterolateral leads Confirmed by Mike Brown ([id number]) on 02/01/2022 3:13:35 PM Referred By: Confirmed By:Oren Brown
[2022-02-01] MEDS ORDERED: ONDANSETRON INJ 2 MG/ML 2 ML VIAL IV STA (16:39)
[2022-02-01] MEDS ORDERED: MULTI-VITAMIN INFUSION 10 ML, THIAMINE HCL 100 MG, FOLIC ACID 1 MG in SODIUM CHLORIDE 0... IV ONE (16:39)
[2022-02-01 17:12] LABS: Acetaminophen < 3 ug/ml (10-30); Salicylate < 3.0 mg/dl (3.0-30)
--- NOTE | 2022-02-01 17:18 | XRay Report ---
XR chest 1V portable CLINICAL HISTORY: withdrawal from alcohol TECHNIQUE: Single frontal radiograph of the chest was obtained. Comparison: Comparison is made to chest radiograph 12/31/2021 FINDINGS: No lines and tubes are seen. The cardiomediastinal silhouette is normal. The lungs are clear. No evid ence of pleural effusion or pneumothorax. IMPRESSION: No acute chest disease. ACT 112: Negative or not required by law. Electronically signed by: Lester Johnson M.D. 02/01/2022 5:17 PM
[2022-02-01] MEDS ORDERED: chlordiazePOXIDE HCl 25 MG CAP PO ONE (17:29)
[2022-02-01] MEDS: POTASSIUM CHLORIDE / WTR 10 MEQ/100 ML PLCT IV SCH ×4 (17:31→21:18)
--- NOTE | 2022-02-01 17:40 | Emergency Department Note ---
Impression & Plan Alcohol abuse, Alcohol withdrawal, Hypokalemia ED Provider Note NAME: PHILLIP AMARO AGE: 36 SEX: F : 1985 ARRIVES VIA: Walk-In INFORMANT: [Patient] ED PROVIDER(S): [Todd Moyer MD] CHIEF COMPLAINT: Alcohol withdrawal HISTORY OF PRESENT ILLNESS: The patient is a 36-year-old female who presents to the ER with complaints of alcohol withdrawal and the need for alcohol detox. The patient has been through detox before and has had bouts of pancreatitis as well as seizures. The patient has been drinking about a 5th of vodka daily for the last 2 weeks. She last had alcohol this morning. There has been no cough or congestion or shortness of breath. No fever, chills. She has not suffered recent trauma. REVIEW OF SYSTEMS: See HPI for pertinent positives and negatives. A total of ten systems were reviewed and were otherwise negative. PMHx/PSHx: See Below SOCIAL HISTORY: See Below. PHYSICAL EXAM: GENERAL: Patient is in no acute distress. HEENT: No acute trauma, normocephalic atraumatic, mucous membranes moist, no nasal congestion, no scleral icterus. NECK: No stridor, no adenopathy, no meningismus, trachea is midline. LUNGS: Clear to auscultation bilaterally, no wheeze, no rhonchi, breath sounds equal. HEART: No murmurs, regular rhythm, normal rate. ABDOMEN: Soft, nontender, bowel sounds positive, no peritonitis. EXTREMITIES: No cyanosis or edema, full range of motion of all the joints without pain or difficulty, no signs for acute trauma. NEUROLOGIC: Oriented x 3, no acute motor or sensory deficits, no focal weakness. Slight speech slur noted. SKIN: No rash, no jaundice, no diaphoresis. DIFFERENTIAL DIAGNOSIS: Alcohol withdrawal, alcohol abuse, dehydration, electrolyte imbalance, renal or liver failure, coagulopathy, among others. EMERGENCY DEPARTMENT COURSE/PROCEDURES: ECG: Indication was withdrawal. The ECG shows a sinus tachycardia with a rate of 103. There are T wave inversions in the inferior and lateral leads. There is no ST elevation. No PVCs. The QTc is 487. Continuous Cardiac Monitoring: An order was placed for continuous cardiac monitoring. The monitor shows a rate of 92 with normal sinus rhythm. Critical Care Note: I have personally spent 43 minutes of critical care time in the direct management of this patient. This includes bedside care, interpretation of diagnostic studies, and testing, discussion with consultants, patient, and family members, and other required patient management activities. This 43 minutes is in excess of all separately billable procedures. MEDICAL DECISION MAKING: There is no leukocytosis or concerning anemia. There is a normal platelet count. Potassium was low at 2.6. No renal failure. Magnesium is low 1.5. AST slightly elevated, the remaining liver enzymes were unremarkable. No pancreatitis. The patient appeared to be in a euthyroid state. No findings of . ECG showed a sinus tachycardia, no ischemia. Cardiac enzyme testing x1 is not consistent with acute cardiac injury. Urinalysis did not show infection. Aspirin, Tylenol levels were undetectable. Urine tox showed benzos. Alcohol level was high at 366. COVID test returned negative. Chest x-ray did not show mediastinal widening, pneumonia or pneumothorax. On exam, the patient did seem to be slurring her speech slightly. She was not toxic or febrile. The patient received IV saline with multivitamins, thiamine and folate. She was given 25 mg of oral Librium. She was given 2 bags of IV potassium. She was ordered for oral potassium. She received IV Zofran. The patient is in need of a hospital stay. She is here for alcohol detox. She has had seizures before from detox. She is voluntary. I spoke with the patient, I spoke with case management, the on-call hospitalist was consulted. Past Med/Surg History Medical History Alcohol abuse Alcohol dependence Alcohol intoxication Alcohol withdrawal Anxiety with depression Breast lump on left side at 11 o'clock position Enteric intussusception Hepatic steatosis Hypokalemia Hypomagnesemia Miscarriage PTSD (post-traumatic stress disorder) Reflux gastritis Transaminitis Surgical History (Updated 01/15/22 @ 10:30 by ANGELA Antunez) H/O foot surgery Previous section S/P dilation and curettage Family History Mother Depression Anxiety Brother Depression Anxiety Denies family history of Ovarian cancer Prostate cancer Diabetes Myocardial infarction Breast cancer Colorectal cancer Hypertension Social History Smoking Status: Never smoker Second Hand Exposure: No; Hx Alcohol Use: Yes Alcohol type: hard liquor Hx Substance Use: No Preferred Language: Welsh Communication Ability: Effective Visual Impairment: No Limitations Hearing Ability: Normal Food Selector Required: No Beliefs That Will Affect Care: None marital status: Current Living Situation: Family Current Living Situation Comment: Parents and son 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[employer] How many Children do You have: 1 Other Information That Helps Us Care for You: No Feels Safe at Home: Yes Safety Concerns: Feels Safe At This Time Childhood Exposure to Second-Hand Smoke: No Dental Care, Regularly: Yes Physical Activity Frequency: 5-6 Times per Week Seatbelt Use: always Sunscreen Use: Yes Assistive Devices: None Allergies Allergies Allergy/AdvReac Type Severity Reaction Status Date / Time lactose Allergy Unknown Verified 02/01/22 17:49 Home Meds Home Medications Medication Instructions Recorded Confirmed gabapentin 300 mg capsule 300 mg PO TID 05/27/18 02/01/22 linaclotide 145 mcg capsule 145 mcg PO DAILY 07/10/20 02/01/22 (Linzess) prazosin 1 mg capsule 3 mg PO HS 06/08/21 02/01/22 cyclobenzaprine 10 mg tablet 10 mg PO BID PRN muscle spasms 12/09/21 02/01/22 duloxetine 30 mg capsule,delayed 30 mg PO DAILY 01/15/22 02/01/22 release hydroxyzine pamoate 50 mg capsule 50 mg PO TID Anxiety 01/15/22 02/01/22 (Vistaril) mirtazapine 15 mg tablet 15 mg PO DAILY 01/15/22 02/01/22 thiamine HCl (vitamin B1) 100 mg 100 mg PO DAILY 01/15/22 02/01/22 tablet duloxetine 60 mg capsule,delayed 60 mg PO DAILY 02/01/22 02/01/22 release levonorgestrel 20 mcg/24 hours (8 0 mcg intrauterine DIRECTED 02/01/22 02/01/22 yrs) 52 mg intrauterine device (Mirena) propranolol 10 mg tablet 5 mg PO AMHS 02/01/22 02/01/22 Results & Data (ED) Vital Signs Vital Signs - 24 hr 02/01/22 13:33 02/01/22 16:25 Temperature 36.1 C L Temperature Source Temporal Artery Scan Pulse Rate 111 H Pulse Rate [Apical] 92 H Respiratory Rate 18 20 Respiratory Effort / Characteristics Non-Labored Respiratory Depth Normal Blood Pressure 140/88 Blood Pressure [Right Arm] 132/97 Blood Pressure Mean 105 Blood Pressure Mean [Right Arm] 108 Pulse Oximetry 94 96 Oxygen Delivery Method Room Air Room Air Sepsis Recent Fever Within 48 Hours No Sepsis New/Unexplained Change in Mental Status No Sepsis Action Taken by Nursing No Action Required Home Medications Current Medication List: was personally reviewed by me Laboratory Data Attestation: I reviewed the patient's lab results. Result diagrams: 02/01/22 14:00 02/01/22 20:18 Lab Results 02/01/22 02/01/22 02/01/22 Range/Units 14:00 14:00 14:00 WBC 10.41 (4.8-10.8) K/ul RBC 4.27 (3.93-5.22) M/uL Hgb 13.8 (12.0-16.0) g/dl Hct 38.8 (34.1-44.9) % MCV 90.9 (80.0-100.0) fL MCH 32.3 (25.0-34.0) pg MCHC 35.6 (32.0-36.0) g/dL RDW Std Deviation 43.9 (36.4-46.3) fL RDW Coeff of Dallin 13.2 (11.5-14.5) % Plt Count 277 (130-400) K/uL MPV 10.3 (9.4-12.3) fL Immature Gran % (Auto) 0.3 % Neut % (Auto) 47.6 % Lymph % (Auto) 43.1 % [place] % (Auto) 7.6 % Eos % (Auto) 0.5 % Baso % (Auto) 0.9 % Neut # (Auto) 4.96 (1.4-6.5) K/uL Lymph # (Auto) 4.49 H (1.2-3.4) K/uL [place] # (Auto) 0.79 (0.24-0.82) K/uL Eos # (Auto) 0.05 (0-0.50) K/uL Baso # (Auto) 0.09 (0-0.2) K/uL Immature Gran # (Auto) 0.03 H (0.00-0.02) K/uL Sodium 144 (136-145) mmol/L Potassium 2.6 L (3.5-5.1) mmol/L Chloride 99 (98-107) mmol/L Carbon Dioxide 31 (21-32) mmol/L Anion Gap 14 H (3-11) BUN 6 (6-23) mg/dl Creatinine 0.66 (0.6-1.2) mg/dl Est Cr Clr Drug Dosing 134.7 ml/min Est GFR ( Amer) 130.8 ml/min Est GFR (Non-Af Amer) 112.9 ml/min BUN/Creatinine Ratio 9.1 L (10-20) Glucose 90 (70-99(Fasting)) mg/dl Calcium 8.9 (8.5-10.1) mg/dl Magnesium (1.7-2.4) mg/dl Total Bilirubin 0.5 (0.2-1.0) mg/dl AST 47 H (13-39) U/L ALT 16 (7-52) U/L Alkaline Phosphatase 61 (34-104) U/L Troponin I High Sens (0-14) pg/ml Total Protein 6.5 (6.0-8.3) gm/dl Albumin 4.0 (3.4-5.0) gm/dl Globulin 2.5 (2.5-4.0) gm/dl Albumin/Globulin Ratio 1.6 (0.9-2) Lipase (11-82) U/L TSH (0.300-4.500) uIu/ml HCG, Quant mIU/ml Urine Color Urine Appearance (Clear) Urine pH (4.5-7.5) Ur Specific Lydia (1.000-1.030) Urine Protein (Negative) Urine Glucose (UA) (Negative) Urine Ketones (Negative) Urine Blood (Negative) Urine Nitrite (Negative) Urine Bilirubin (Negative) Urine Urobilinogen (Negative) Ur Leukocyte Esterase (Negative) Salicylates (3.0-30) mg/dl Urine Opiates Screen (Neg) Ur Methadone, Qual (Neg) Acetaminophen (10-30) ug/ml Urine Barbiturates (Neg) Ur Phencyclidine (PCP) (Neg) U Amphetamin/Meth Scrn (Neg) MDMA (Ecstasy) Screen (Neg) U Benzodiazepines Scrn (Neg) Ur Cocaine Metabolite (Neg) U Marijuana (THC) Screen (Neg) Ethyl Alcohol mg/dL 366.3 H (<10.0) mg/dl SARS-CoV-2, RNA, NAAT (NEGATIVE) 02/01/22 02/01/22 02/01/22 Range/Units 14:00 14:00 14:00 WBC (4.8-10.8) K/ul RBC (3.93-5.22) M/uL Hgb (12.0-16.0) g/dl Hct (34.1-44.9) % MCV (80.0-100.0) fL MCH (25.0-34.0) pg MCHC (32.0-36.0) g/dL RDW Std Deviation (36.4-46.3) fL RDW Coeff of Dallin (11.5-14.5) % Plt Count (130-400) K/uL MPV (9.4-12.3) fL Immature Gran % (Auto) % Neut % (Auto) % Lymph % (Auto) % [place] % (Auto) % Eos % (Auto) % Baso % (Auto) % Neut # (Auto) (1.4-6.5) K/uL Lymph # (Auto) (1.2-3.4) K/uL [place] # (Auto) (0.24-0.82) K/uL Eos # (Auto) (0-0.50) K/uL Baso # (Auto) (0-0.2) K/uL Immature Gran # (Auto) (0.00-0.02) K/uL Sodium (136-145) mmol/L Potassium (3.5-5.1) mmol/L Chloride (98-107) mmol/L Carbon Dioxide (21-32) mmol/L Anion Gap (3-11) BUN (6-23) mg/dl Creatinine (0.6-1.2) mg/dl Est Cr Clr Drug Dosing ml/min Est GFR ( Amer) ml/min Est GFR (Non-Af Amer) ml/min BUN/Creatinine Ratio (10-20) Glucose (70-99(Fasting)) mg/dl Calcium (8.5-10.1) mg/dl Magnesium 1.5 L (1.7-2.4) mg/dl Total Bilirubin (0.2-1.0) mg/dl AST (13-39) U/L ALT (7-52) U/L Alkaline Phosphatase (34-104) U/L Troponin I High Sens 3.3 (0-14) pg/ml Total Protein (6.0-8.3) gm/dl Albumin (3.4-5.0) gm/dl Globulin (2.5-4.0) gm/dl Albumin/Globulin Ratio (0.9-2) Lipase 78 (11-82) U/L TSH 0.819 (0.300-4.500) uIu/ml HCG, Quant < 1 mIU/ml Urine Color Urine Appearance (Clear) Urine pH (4.5-7.5) Ur Specific Lydia (1.000-1.030) Urine Protein (Negative) Urine Glucose (UA) (Negative) Urine Ketones (Negative) Urine Blood (Negative) Urine Nitrite (Negative) Urine Bilirubin (Negative) Urine Urobilinogen (Negative) Ur Leukocyte Esterase (Negative) Salicylates (3.0-30) mg/dl Urine Opiates Screen (Neg) Ur Methadone, Qual (Neg) Acetaminophen (10-30) ug/ml Urine Barbiturates (Neg) Ur Phencyclidine (PCP) (Neg) U Amphetamin/Meth Scrn (Neg) MDMA (Ecstasy) Screen (Neg) U Benzodiazepines Scrn (Neg) Ur Cocaine Metabolite (Neg) U Marijuana (THC) Screen (Neg) Ethyl Alcohol mg/dL (<10.0) mg/dl SARS-CoV-2, RNA, NAAT (NEGATIVE) 02/01/22 02/01/22 02/01/22 Range/Units 14:09 14:09 16:08 WBC (4.8-10.8) K/ul RBC (3.93-5.22) M/uL Hgb (12.0-16.0) g/dl Hct (34.1-44.9) % MCV (80.0-100.0) fL MCH (25.0-34.0) pg MCHC (32.0-36.0) g/dL RDW Std Deviation (36.4-46.3) fL RDW Coeff of Dallin (11.5-14.5) % Plt Count (130-400) K/uL MPV (9.4-12.3) fL Immature Gran % (Auto) % Neut % (Auto) % Lymph % (Auto) % [place] % (Auto) % Eos % (Auto) % Baso % (Auto) % Neut # (Auto) (1.4-6.5) K/uL Lymph # (Auto) (1.2-3.4) K/uL [place] # (Auto) (0.24-0.82) K/uL Eos # (Auto) (0-0.50) K/uL Baso # (Auto) (0-0.2) K/uL Immature Gran # (Auto) (0.00-0.02) K/uL Sodium (136-145) mmol/L Potassium (3.5-5.1) mmol/L Chloride (98-107) mmol/L Carbon Dioxide (21-32) mmol/L Anion Gap (3-11) BUN (6-23) mg/dl Creatinine (0.6-1.2) mg/dl Est Cr Clr Drug Dosing ml/min Est GFR ( Amer) ml/min Est GFR (Non-Af Amer) ml/min BUN/Creatinine Ratio (10-20) Glucose (70-99(Fasting)) mg/dl Calcium (8.5-10.1) mg/dl Magnesium (1.7-2.4) mg/dl Total Bilirubin (0.2-1.0) mg/dl AST (13-39) U/L ALT (7-52) U/L Alkaline Phosphatase (34-104) U/L Troponin I High Sens (0-14) pg/ml Total Protein (6.0-8.3) gm/dl Albumin (3.4-5.0) gm/dl Globulin (2.5-4.0) gm/dl Albumin/Globulin Ratio (0.9-2) Lipase (11-82) U/L TSH (0.300-4.500) uIu/ml HCG, Quant mIU/ml Urine Color Yellow Urine Appearance Clear (Clear) Urine pH 7.0 (4.5-7.5) Ur Specific Lydia 1.003 (1.000-1.030) Urine Protein Negative (Negative) Urine Glucose (UA) Negative (Negative) Urine Ketones Negative (Negative) Urine Blood Negative (Negative) Urine Nitrite Negative (Negative) Urine Bilirubin Negative (Negative) Urine Urobilinogen Negative (Negative) Ur Leukocyte Esterase Negative (Negative) Salicylates < 3.0 L (3.0-30) mg/dl Urine Opiates Screen Neg (Neg) Ur Methadone, Qual Neg (Neg) Acetaminophen < 3 L (10-30) ug/ml Urine Barbiturates Neg (Neg) Ur Phencyclidine (PCP) Neg (Neg) U Amphetamin/Meth Scrn Neg (Neg) MDMA (Ecstasy) Screen Neg (Neg) U Benzodiazepines Scrn Pos H (Neg) Ur Cocaine Metabolite Neg (Neg) U Marijuana (THC) Screen Neg (Neg) Ethyl Alcohol mg/dL (<10.0) mg/dl SARS-CoV-2, RNA, NAAT (NEGATIVE) 02/01/22 Range/Units 17:34 WBC (4.8-10.8) K/ul RBC (3.93-5.22) M/uL Hgb (12.0-16.0) g/dl Hct (34.1-44.9) % MCV (80.0-100.0) fL MCH (25.0-34.0) pg MCHC (32.0-36.0) g/dL RDW Std Deviation (36.4-46.3) fL RDW Coeff of Dallin (11.5-14.5) % Plt Count (130-400) K/uL MPV (9.4-12.3) fL Immature Gran % (Auto) % Neut % (Auto) % Lymph % (Auto) % [place] % (Auto) % Eos % (Auto) % Baso % (Auto) % Neut # (Auto) (1.4-6.5) K/uL Lymph # (Auto) (1.2-3.4) K/uL [place] # (Auto) (0.24-0.82) K/uL Eos # (Auto) (0-0.50) K/uL Baso # (Auto) (0-0.2) K/uL Immature Gran # (Auto) (0.00-0.02) K/uL Sodium (136-145) mmol/L Potassium (3.5-5.1) mmol/L Chloride (98-107) mmol/L Carbon Dioxide (21-32) mmol/L Anion Gap (3-11) BUN (6-23) mg/dl Creatinine (0.6-1.2) mg/dl Est Cr Clr Drug Dosing ml/min Est GFR ( Amer) ml/min Est GFR (Non-Af Amer) ml/min BUN/Creatinine Ratio (10-20) Glucose (70-99(Fasting)) mg/dl Calcium (8.5-10.1) mg/dl Magnesium (1.7-2.4) mg/dl Total Bilirubin (0.2-1.0) mg/dl AST (13-39) U/L ALT (7-52) U/L Alkaline Phosphatase (34-104) U/L Troponin I High Sens (0-14) pg/ml Total Protein (6.0-8.3) gm/dl Albumin (3.4-5.0) gm/dl Globulin (2.5-4.0) gm/dl Albumin/Globulin Ratio (0.9-2) Lipase (11-82) U/L TSH (0.300-4.500) uIu/ml HCG, Quant mIU/ml Urine Color Urine Appearance (Clear) Urine pH (4.5-7.5) Ur Specific Lydia (1.000-1.030) Urine Protein (Negative) Urine Glucose (UA) (Negative) Urine Ketones (Negative) Urine Blood (Negative) Urine Nitrite (Negative) Urine Bilirubin (Negative) Urine Urobilinogen (Negative) Ur Leukocyte Esterase (Negative) Salicylates (3.0-30) mg/dl Urine Opiates Screen (Neg) Ur Methadone, Qual (Neg) Acetaminophen (10-30) ug/ml Urine Barbiturates (Neg) Ur Phencyclidine (PCP) (Neg) U Amphetamin/Meth Scrn (Neg) MDMA (Ecstasy) Screen (Neg) U Benzodiazepines Scrn (Neg) Ur Cocaine Metabolite (Neg) U Marijuana (THC) Screen (Neg) Ethyl Alcohol mg/dL (<10.0) mg/dl SARS-CoV-2, RNA, NAAT NEGATIVE (NEGATIVE) Administered Medications Gabapentin (Gabapentin 300 Mg Cap) 300 mg PO TID [facility] Stop: 03/03/22 20:59 Last Admin: 02/01/22 21:30 Dose: 300 mg Documented By: QG Hydroxyzine HCl (Hydroxyzine Hcl 25 Mg Tab) 50 mg PO TID [facility] Stop: 03/03/22 20:59 Last Admin: 02/01/22 21:30 Dose: 50 mg Documented By: QG Magnesium Sulfate/Dextrose (Magnesium Sulfate / D5w) 1 gm in 100 mls @ 50 mls/hr IV Q2H JOSE F Stop: 02/02/22 03:59 Last Admin: 02/01/22 22:33 Dose: 50 mls/hr Documented By: QG Prazosin HCl (Prazosin Hcl 1 Mg Cap) 3 mg PO HS JOSE F Stop: 03/03/22 20:59 Last Admin: 02/01/22 21:29 Dose: 3 mg Documented By: QG Propranolol HCl (Propranolol Hcl 10 Mg Tab) 5 mg PO AMHS JOSE F Stop: 03/03/22 20:59 Last Admin: 02/01/22 21:28 Dose: 5 mg Documented By: QG Discontinued Medications Chlordiazepoxide HCl (Chlordiazepoxide Hcl 25 Mg Cap) 25 mg PO NOW ONE Stop: 02/01/22 17:30 Last Admin: 02/01/22 18:09 Dose: 25 mg Documented By: BYRON Multivitamins 10 ml/ Thiamine HCl 100 mg/ Folic Acid 1 mg/Sodium Chloride 1,011.2 mls @ 1,011.2 mls/hr IV .Q1H ONE Stop: 02/01/22 17:38 Last Infusion: 02/01/22 20:09 Dose: 0 mls/hr Documented By: Admin: 02/01/22 18:48 Dose: 1,011.2 mls/hr Documented By: BYRON Potassium Chloride (K Ottoniel / Wtr) 10 meq in 100 mls @ 100 mls/hr IV Q1H JOSE F; Protocol Stop: 02/01/22 18:44 Last Infusion: 02/01/22 20:09 Dose: 0 mls/hr Documented By: Admin: 02/01/22 18:27 Dose: 100 mls/hr Documented By: Infusion: 02/01/22 18:27 Dose: 0 mls/hr Documented By: Admin: 02/01/22 17:31 Dose: 100 mls/hr Documented By: BYRON Potassium Chloride (K Ottoniel / Wtr) 10 meq in 100 mls @ 100 mls/hr IV Q1H JOSE F Stop: 02/01/22 21:44 Last Infusion: 02/01/22 23:01 Dose: 0 mls/hr Documented By: Admin: 02/01/22 21:18 Dose: 100 mls/hr Documented By: Infusion: 02/01/22 20:36 Dose: 0 mls/hr Documented By: Admin: 02/01/22 19:33 Dose: 100 mls/hr Documented By: JR Ondansetron HCl (Ondansetron Inj 2 Mg/Ml 2 Ml Vial) 4 mg IV NOW STA Stop: 02/01/22 16:40 Last Admin: 02/01/22 17:31 Dose: 4 mg Documented By: BYRON Potassium Chloride (Potassium Chloride Crtab 20 Meq Tabcr) 40 meq PO NOW STA Stop: 02/01/22 21:58 Last Admin: 02/01/22 22:41 Dose: 40 meq Documented By: QG Imaging Data Radiologist's Impression: Chest X-Ray 02/01/22 16:39 XR chest 1V portable CLINICAL HISTORY: withdrawal from alcohol TECHNIQUE: Single frontal radiograph of the chest was obtained. Comparison: Comparison is made to chest radiograph 12/31/2021 FINDINGS: No lines and tubes are seen. The cardiomediastinal silhouette is normal. The lungs are clear. No evidence of pleural effusion or pneumothorax. IMPRESSION: No acute chest disease. ACT 112: Negative or not required by law. Electronically signed by: Lester Johnson M.D. 02/01/2022 5:17 PM Discharge Plan Visit Data Chief Complaint: Alcohol Withdrawal Stated Complaint: ALCOHOL WITHDRAWL ED Provider: Todd Moyer Discharge Problem: Alcohol abuse, Alcohol withdrawal, Hypokalemia Patient Disposition: Admitted As Inpatient Condition: Fair Discharge Instructions Interventions: ED Discharge Assessment Last Done: 02/01/22 20:45
[2022-02-01] MEDS ORDERED: LORazepam 1 MG TAB PO PRN ×4 (18:12)
[2022-02-01] MEDS ORDERED: Ativan PO Alcohol Withdrawal--Active Protocol PO PRN (18:12)
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
[2022-02-01 18:53] LABS: Amphetamines+Metham, Urine Neg (Neg); Barbiturates, Urine Neg (Neg); Benzodiazepine, Urine Pos (Neg); Cocaine, Urine Neg (Neg); MDMA (Ecstacy), Urine Neg (Neg); Methadone, Urine Neg (Neg); Opiate, Urine Neg (Neg); Phencyclidine, Urine Neg (Neg)
[2022-02-01 19:24] LABS: Magnesium 1.5 mg/dl (1.7-2.4)
[2022-02-01 19:31] LABS: Troponin I High Sensitivity 3.3 pg/ml (0-14)
[2022-02-01 20:55] LABS: BUN Creatinine Ratio 7.7 (10-20); Calcium 7.9 mg/dl (8.5-10.1); Creatinine Clr Calc Pharmacy 136.7 ml/min; Est GFR (African American) 131.5 ml/min; Est GFR (Non-African American) 113.4 ml/min; Potassium 2.8 mmol/L (3.5-5.1)
[2022-02-01] MEDS: PROPRANOLOL HCL 10 MG TAB PO SCH (21:28)
[2022-02-01] MEDS: PRAZOSIN HCL 1 MG CAP PO SCH (21:29)
[2022-02-01] MEDS: GABAPENTIN 300 MG CAP PO SCH (21:30)
[2022-02-01] MEDS: hydrOXYzine HCl 25 MG TAB PO SCH (21:30)
[2022-02-01] MEDS ORDERED: POTASSIUM CHLORIDE CRTAB 20 MEQ TABCR PO STA (21:57)
--- NOTE | 2022-02-01 22:00 | Communication Note ---
Date of Service: February 01, 2022 3 bags Mg IV and 40meq PO KCl ordered. Mg was 1.5 this afternoon. K 2.8 at 8pm. s/p 4 total 10meq K-riders today.
[2022-02-01] MEDS: MAGNESIUM SULFATE / D5W 1 GM/100 ML BAG IV SCH (22:33)
[2022-02-02] MEDS: MAGNESIUM SULFATE / D5W 1 GM/100 ML BAG IV SCH ×2 (00:29→02:28)
[2022-02-02] MEDS ORDERED: chlordiazePOXIDE ALCOHOL WITHDRAWL 50MG PO STA (08:07)
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
[2022-02-02] MEDS ORDERED: MIRTAZAPINE TAB 15 MG TAB PO SCH (09:00)
[2022-02-02] MEDS: DULoxetine HCL 60 MG CAP PO SCH (09:01)
[2022-02-02] MEDS: ENOXAPARIN INJ 40 MG/0.4 ML SYR SQ SCH (09:01)
[2022-02-02] MEDS: hydrOXYzine HCl 25 MG TAB PO SCH ×3 (09:02→20:43)
[2022-02-02] MEDS: LINACLOTIDE 145 MCG CAPSULE PO SCH (09:02)
[2022-02-02] MEDS: GABAPENTIN 300 MG CAP PO SCH ×3 (09:02→20:41)
[2022-02-02] MEDS: THIAMINE HCL 100 MG TAB PO SCH (09:03)
[2022-02-02] MEDS: DULoxetine HCL 30 MG CAP PO SCH (09:03)
[2022-02-02] MEDS: FOLIC ACID 1 MG TAB PO SCH (09:04)
[2022-02-02] MEDS: chlordiazePOXIDE HCl 25 MG CAP PO SCH ×3 (09:08→20:40)
[2022-02-02 09:29] LABS: Hemoglobin 11.3 g/dl (12.0-16.0); Mean Corpuscular Hemoglobin 31.8 pg (25.0-34.0); Mean Corpuscular Hgb Conc 34.2 g/dL (32.0-36.0); Mean Platelet Volume 10.6 fL (9.4-12.3); Platelet Count 180 K/uL (130-400); RDW Coefficient of Variation 13.6 % (11.5-14.5); RDW Standard Deviation 46.7 fL (36.4-46.3); Red Blood Count 3.55 M/uL (3.93-5.22); White Blood Count 4.88 K/ul (4.8-10.8)
[2022-02-02 09:42] LABS: BUN Creatinine Ratio 8.1 (10-20); Calcium 7.3 mg/dl (8.5-10.1); Creatinine Clr Calc Pharmacy 143.4 ml/min; Est GFR (African American) 133.5 ml/min; Est GFR (Non-African American) 115.2 ml/min; Magnesium 1.8 mg/dl (1.7-2.4)
[2022-02-02] MEDS ORDERED: KETOROLAC TROMETHAMINE 10 MG TABLET PO STA (09:43)
[2022-02-02] MEDS ORDERED: POTASSIUM CHLORIDE CRTAB 20 MEQ TABCR PO STA (09:45)
[2022-02-02] MEDS: PROPRANOLOL HCL 10 MG TAB PO SCH ×2 (10:18→20:41)
[2022-02-02] MEDS: PRAZOSIN HCL 1 MG CAP PO SCH (20:42)
--- NOTE | 2022-02-03 00:02 | XRay Report ---
XR ankle LT min 3V routine CLINICAL HISTORY: s/p fall from wheelchair TECHNIQUE: 3 views of the left ankle were obtained. Comparison: None available at the time of this dictation. FINDINGS: No acute fractures are present. The alignment is anatomic. The ankle mortise is intact. The talar dom e is smooth. There is no ankle effusion. No soft tissue abnormality is seen. IMPRESSION: No evidence of acute osseous injury. ACT 112: Negative or not required by law. Electronically signed by: Lester Johnson M.D. 02/03/2022 12:01 AM
[2022-02-03] MEDS: chlordiazePOXIDE HCl 25 MG CAP PO SCH ×3 (02:07→15:46)
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
[2022-02-03 08:23] LABS: Hemoglobin 10.8 g/dl (12.0-16.0); Mean Corpuscular Hemoglobin 31.7 pg (25.0-34.0); Mean Corpuscular Hgb Conc 34.8 g/dL (32.0-36.0); Mean Corpuscular Volume 90.9 fL (80.0-100.0); Mean Platelet Volume 10.9 fL (9.4-12.3); Platelet Count 163 K/uL (130-400); RDW Coefficient of Variation 13.2 % (11.5-14.5); Red Blood Count 3.41 M/uL (3.93-5.22); White Blood Count 4.57 K/ul (4.8-10.8)
[2022-02-03] MEDS: PROPRANOLOL HCL 10 MG TAB PO SCH (08:37)
[2022-02-03] MEDS: DULoxetine HCL 30 MG CAP PO SCH (08:37)
[2022-02-03] MEDS: DULoxetine HCL 60 MG CAP PO SCH (08:38)
[2022-02-03] MEDS: THIAMINE HCL 100 MG TAB PO SCH (08:38)
[2022-02-03] MEDS: hydrOXYzine HCl 25 MG TAB PO SCH ×2 (08:38→13:53)
[2022-02-03] MEDS: FOLIC ACID 1 MG TAB PO SCH (08:38)
[2022-02-03] MEDS: LINACLOTIDE 145 MCG CAPSULE PO SCH (08:38)
[2022-02-03] MEDS: GABAPENTIN 300 MG CAP PO SCH ×2 (08:39→13:50)
[2022-02-03] MEDS: ENOXAPARIN INJ 40 MG/0.4 ML SYR SQ SCH (08:40)
[2022-02-03 09:21] LABS: Albumin Globulin Ratio 1.6 (0.9-2); BUN Creatinine Ratio 9.1 (10-20); Bilirubin,Total 0.8 mg/dl (0.2-1.0); Calcium 7.5 mg/dl (8.5-10.1); Creatinine Clr Calc Pharmacy 161.6 ml/min; Est GFR (African American) 138.9 ml/min; Est GFR (Non-African American) 119.8 ml/min; Globulin 1.9 gm/dl (2.5-4.0); Magnesium 1.5 mg/dl (1.7-2.4); Potassium 3.1 mmol/L (3.5-5.1); Total Protein 4.9 gm/dl (6.0-8.3)
[2022-02-03] MEDS ORDERED: POTASSIUM CHLORIDE CRTAB 20 MEQ TABCR PO STA (11:31)
[2022-02-03] MEDS: MAGNESIUM SULFATE / D5W 1 GM/100 ML BAG IV SCH ×3 (11:44→15:41)
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
[2022-02-03 14:48] LABS: BUN Creatinine Ratio 8.8 (10-20); Calcium 8.2 mg/dl (8.5-10.1); Creatinine Clr Calc Pharmacy 155.9 ml/min; Est GFR (African American) 137.3 ml/min; Est GFR (Non-African American) 118.4 ml/min
[2022-02-03 14:57] LABS: 7-Aminoclonaz, Confirm NEGATIVE ng/mL (<25); Hydro-Alp Ur, GC/MS NEGATIVE ng/mL (<25); Hydroxyethylflurazepam, Conf NEGATIVE ng/mL (<50); Hydroxymidazolam Ur, GC/MS NEGATIVE ng/mL (<50); Hydroxytriazolam NEGATIVE ng/mL (<50); Lorazepam, Ur GC/MS NEGATIVE ng/mL (<50); Nordiazepam, Confirm NEGATIVE ng/mL (<50); Oxazepam Ur, GC/MS NEGATIVE ng/mL (<50); Temazepam, Confirm NEGATIVE ng/mL (<50)
[2022-02-03] MEDS ORDERED: MIRTAZAPINE TAB 15 MG TAB PO SCH (21:00)
== END 2022-02-03 18:30 | disposition home or self-care (01) | DRG 897 ==
LOC: ED 13:22 → 2W 18:12 → SUATTDRO 18:12 → 2W 20:45

== ENCOUNTER 2022-03-23 13:55 | Observation (INO) ==
[2022-03-23 14:58] LABS: Basophils # (auto) 0.06 K/uL (0-0.2); Basophils % (auto) 0.5 %; Hematocrit (blood only) 40.7 % (34.1-44.9); Hemoglobin 14.2 g/dl (12.0-16.0); Immature Granulocytes # (auto) 0.06 K/uL (0.00-0.02); Immature Granulocytes % (auto) 0.5 %; Lymphocytes # (auto) 0.55 K/uL (1.2-3.4); Mean Corpuscular Hemoglobin 32.3 pg (25.0-34.0); Mean Corpuscular Hgb Conc 34.9 g/dL (32.0-36.0); Mean Corpuscular Volume 92.5 fL (80.0-100.0); Monocytes # (auto) 0.58 K/uL (0.24-0.82); Monocytes % (auto) 5.2 %; Neutrophils % (auto) 88.8 %; Platelet Count 199 K/uL (130-400); RDW Coefficient of Variation 16.2 % (11.5-14.5); RDW Standard Deviation 55.2 fL (36.4-46.3); White Blood Count 11.05 K/ul (4.8-10.8)
[2022-03-23] MEDS ORDERED: ONDANSETRON INJ 2 MG/ML 2 ML VIAL IV STA (15:07)
[2022-03-23] MEDS ORDERED: LORazepam 2 MG/1 ML VIAL IV STA ×2 (15:07)
[2022-03-23] MEDS ORDERED: SODIUM CHLORIDE 0.9% 1000ML 2,000 ML IV ONE (15:07)
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
--- NOTE | 2022-03-23 15:11 | Emergency Department Note ---
Impression & Plan Chest pain, Alcohol abuse, Alcohol withdrawal, Hypokalemia, ECG abnormal, Metabolic acidosis ED Provider Note NAME: PHILLIP AMARO AGE: 36 SEX: F : 1985 ARRIVES VIA: Walk-In INFORMANT: Patient ED PROVIDER(S): Issa Villa DO CHIEF COMPLAINT: withdraw HPI: Patient is a 36-year-old female with a past medical history of alcohol abuse, alcohol withdrawal, anxiety, PTSD that presents the ER as she was stop drinking. She denies any suicidal homicidal ideations. She was drinking fifth of vodka a day for the past 3 weeks. She notes her last drink was last night. Denies any headache but admits to chest pain which been present at 7 AM. It is typical when she goes through withdrawal with vomiting. She denies any focal belly pain but admits to nausea and having upset stomach. No dysuria, urgency, or frequency. Chest pain is sharp and stabbing middle of her chest. No other exacerbating or remitting factors. ROS: See above HPI for pertinent positives & negatives. A total of 10 systems reviewed and were otherwise negative. PAST MEDICAL HISTORY:See Below PAST SURGICAL HISTORY:See Below FAMILY HISTORY:See Below SOCIAL HISTORY:See Below HOME MEDICATIONS:See Below ALLERGIES:See Below VITALS:See Below PHYSICAL EXAMINATION: GENERAL: Sitting up in bed, alert, ill appearing, shaking with tremors EYE EXAM: normal conjunctiva. OROPHARYNX: no exudate, no erythema, lips, buccal mucosa, and tongue normal and mucous membranes are moist NECK: supple, no nuchal rigidity, no adenopathy, non-tender LUNGS: Clear to auscultation. Normal chest wall mechanics HEART: no murmurs, S1 normal and S2 normal ABDOMEN: abdomen soft, non-tender, normo-active bowel sounds, no masses, no rebound or guarding. UPPER EXTREMITIES: upper extremities are grossly normal. LOWER EXTREMITIES: No pitting edema. NEURO EXAM: Normal sensorium, cranial nerves II-XII grossly intact, normal speech, no gross weakness of arms, no gross weakness of legs. MEDICAL DECISION MAKING: Patient is a 36-year-old female who is an alcoholic that presents the ER for withdrawals. IV was established blood work was obtained. She is complaining of chest pain. Labs show mild leukocytosis of 11,000. No significant anemia. D- dimer slightly elevated. BMP with a metabolic acidosis with a CO2 of 11 and a gap of 34. Alcohol slightly elevated at 84. T bili up at 1.8. Troponin was negative with symptoms have been present for greater than 6 hours. Not indicative of ACS although EKG shows ST wave changes. was negative. Tox positive for benzos. COVID was negative. CT of the chest was unremarkable. Patient was given IV fluids and 2 mg of Ativan. Heart rate and blood pressure did trend down. She is updated bedside discussed with Dr. Justin Munson admitted for further work-up. Triage Nursing notes reviewed. Limited review of prior medical records performed Vital Signs: reviewed and remarkable for HTN, tachy Differential diagnosis: Infection, dehydration, metabolic abnormality, hypo/hyperglycemia, electrolyte disturbance, anemia, hypoxia, cardiac sources, intracerebral event, toxicologic, neurologic, as well as other pathologies. ER treatment provided: See below Diagnostics interpreted by me: ECG: Sinus rhythm rate 99 Normal axis No PVCs T wave inversion V3 through V6 ST depressions in V3 through V6 New from previous on December 31, 2021 Cardiac Monitoring: An order was placed for continuous cardiac monitoring. The monitor shows a rate of 100 with sinus rhythm. Laboratory studies: As stated above and show below. Imaging studies: CT angio of the chest was negative Consultation(s): Discussed with Dr. Justin Munson for further evaluation Procedures: none Critical Care: None Past Med/Surg History Medical History Alcohol abuse Alcohol dependence Alcohol intoxication Alcohol withdrawal Anxiety with depression Breast lump on left side at 11 o'clock position Enteric intussusception Hepatic steatosis Hypokalemia Hypomagnesemia Miscarriage PTSD (post-traumatic stress disorder) Reflux gastritis Transaminitis Surgical History H/O foot surgery Previous section S/P dilation and curettage Family History Mother Depression Anxiety Brother Depression Anxiety Denies family history of Ovarian cancer Prostate cancer Diabetes Myocardial infarction Breast cancer Colorectal cancer Hypertension Social History Smoking Status: Never smoker Second Hand Exposure: No; Hx Alcohol Use: Yes Alcohol type: hard liquor Hx Substance Use: No Preferred Language: Indonesian Communication Ability: Effective Visual Impairment: No Limitations Hearing Ability: Normal 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: No Beliefs That Will Affect Care: None marital status: Current Living Situation: Family Current Living Situation Comment: Parents and son 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[employer] How many Children do You have: 1 Other Information That Helps Us Care for You: No Feels Safe at Home: Yes Safety Concerns: Feels Safe At This Time Childhood Exposure to Second-Hand Smoke: No Dental Care, Regularly: Yes Physical Activity Frequency: 5-6 Times per Week Seatbelt Use: always Sunscreen Use: Yes Assistive Devices: None Allergies Allergies Allergy/AdvReac Type Severity Reaction Status Date / Time lactose Allergy Unknown Verified 02/05/22 12:33 Home Meds Home Medications Medication Instructions Recorded Confirmed gabapentin 300 mg capsule 300 mg PO TID 05/27/18 03/23/22 prazosin 1 mg capsule 3 mg PO HS 06/08/21 03/23/22 cyclobenzaprine 10 mg tablet 10 mg PO BID PRN muscle spasms 12/09/21 03/23/22 duloxetine 30 mg capsule,delayed 30 mg PO DAILY 01/15/22 03/23/22 release hydroxyzine pamoate 50 mg capsule 50 mg PO TID Anxiety 01/15/22 03/23/22 (Vistaril) mirtazapine 15 mg tablet 15 mg PO HS 01/15/22 03/23/22 thiamine HCl (vitamin B1) 100 mg 100 mg PO DAILY 01/15/22 03/23/22 tablet duloxetine 60 mg capsule,delayed 60 mg PO DAILY 02/01/22 03/23/22 release levonorgestrel 20 mcg/24 hours (8 0 mcg intrauterine DIRECTED 02/01/22 03/23/22 yrs) 52 mg intrauterine device (Mirena) propranolol 10 mg tablet 5 mg PO AMHS 02/01/22 03/23/22 chlordiazepoxide HCl 25 mg capsule 50 mg PO DIRECTED PRN Anxiety 03/23/22 03/23/22 Previous Rx's Medication Instructions Recorded cyanocobalamin (vitamin B-12) 1,000 mcg PO DAILY #30 caps 02/03/22 1,000 mcg capsule folic acid 400 mcg tablet 400 mcg PO DAILY #30 tabs 02/03/22 Results & Data (ED) Vital Signs Vital Signs - 24 hr 03/23/22 14:09 Temperature 36.5 C Temperature Source Temporal Artery Scan Pulse Rate 119 H Respiratory Rate 18 Respiratory Effort / Characteristics Non-Labored Respiratory Depth Normal Respiratory Pattern Regular Blood Pressure 155/113 H Blood Pressure Mean 127 Pulse Oximetry 97 Oxygen Delivery Method Room Air Sepsis Recent Fever Within 48 Hours No Sepsis New/Unexplained Change in Mental Status N/A Sepsis Action Taken by Nursing No Action Required Laboratory Data Result diagrams: 03/23/22 14:40 03/23/22 14:40 Lab Results 03/23/22 03/23/22 03/23/22 Range/Units 14:40 14:40 14:40 WBC 11.05 H (4.8-10.8) K/ul RBC 4.40 (3.93-5.22) M/uL Hgb 14.2 (12.0-16.0) g/dl Hct 40.7 (34.1-44.9) % MCV 92.5 (80.0-100.0) fL MCH 32.3 (25.0-34.0) pg MCHC 34.9 (32.0-36.0) g/dL RDW Std Deviation 55.2 H (36.4-46.3) fL RDW Coeff of Dallin 16.2 H (11.5-14.5) % Plt Count 199 (130-400) K/uL MPV 10.0 (9.4-12.3) fL Immature Gran % (Auto) 0.5 % Neut % (Auto) 88.8 % Lymph % (Auto) 5.0 % Borden % (Auto) 5.2 % Eos % (Auto) 0.0 % Baso % (Auto) 0.5 % Neut # (Auto) 9.80 H (1.4-6.5) K/uL Lymph # (Auto) 0.55 L (1.2-3.4) K/uL Borden # (Auto) 0.58 (0.24-0.82) K/uL Eos # (Auto) 0.00 (0-0.50) K/uL Baso # (Auto) 0.06 (0-0.2) K/uL Immature Gran # (Auto) 0.06 H (0.00-0.02) K/uL D-Dimer (0-500) ug/L FEU Sodium 134 L (136-145) mmol/L Potassium 3.9 (3.5-5.1) mmol/L Chloride 89 L (98-107) mmol/L Carbon Dioxide 11 L (21-32) mmol/L Anion Gap 34 H (3-11) BUN 11 (6-23) mg/dl Creatinine 0.72 (0.6-1.2) mg/dl Est Cr Clr Drug Dosing 123.5 ml/min Est GFR ( Amer) 124.0 ml/min Est GFR (Non-Af Amer) 107.0 ml/min BUN/Creatinine Ratio 15.3 (10-20) Glucose 85 (70-99(Fasting)) mg/dl Calcium 8.8 (8.5-10.1) mg/dl Magnesium 1.9 (1.7-2.4) mg/dl Total Bilirubin 1.8 H (0.2-1.0) mg/dl AST 107 H (13-39) U/L ALT 48 (7-52) U/L Alkaline Phosphatase 70 (34-104) U/L Troponin I High Sens 5.7 (0-14) pg/ml Total Protein 8.5 H (6.0-8.3) gm/dl Albumin 5.1 H (3.4-5.0) gm/dl Globulin 3.4 (2.5-4.0) gm/dl Albumin/Globulin Ratio 1.5 (0.9-2) Lipase 79 (11-82) U/L Urine Test (Negative) Urine Opiates Screen (Neg) Ur Methadone, Qual (Neg) Urine Barbiturates (Neg) Ur Phencyclidine (PCP) (Neg) U Amphetamin/Meth Scrn (Neg) MDMA (Ecstasy) Screen (Neg) U Benzodiazepines Scrn (Neg) Ur Cocaine Metabolite (Neg) U Marijuana (THC) Screen (Neg) SARS-CoV-2, RNA, NAAT (NEGATIVE) 03/23/22 03/23/22 03/23/22 Range/Units 14:40 14:54 14:54 WBC (4.8-10.8) K/ul RBC (3.93-5.22) M/uL Hgb (12.0-16.0) g/dl Hct (34.1-44.9) % MCV (80.0-100.0) fL MCH (25.0-34.0) pg MCHC (32.0-36.0) g/dL RDW Std Deviation (36.4-46.3) fL RDW Coeff of Dallin (11.5-14.5) % Plt Count (130-400) K/uL MPV (9.4-12.3) fL Immature Gran % (Auto) % Neut % (Auto) % Lymph % (Auto) % Borden % (Auto) % Eos % (Auto) % Baso % (Auto) % Neut # (Auto) (1.4-6.5) K/uL Lymph # (Auto) (1.2-3.4) K/uL Borden # (Auto) (0.24-0.82) K/uL Eos # (Auto) (0-0.50) K/uL Baso # (Auto) (0-0.2) K/uL Immature Gran # (Auto) (0.00-0.02) K/uL D-Dimer 1460 H* (0-500) ug/L FEU Sodium (136-145) mmol/L Potassium (3.5-5.1) mmol/L Chloride (98-107) mmol/L Carbon Dioxide (21-32) mmol/L Anion Gap (3-11) BUN (6-23) mg/dl Creatinine (0.6-1.2) mg/dl Est Cr Clr Drug Dosing ml/min Est GFR ( Amer) ml/min Est GFR (Non-Af Amer) ml/min BUN/Creatinine Ratio (10-20) Glucose (70-99(Fasting)) mg/dl Calcium (8.5-10.1) mg/dl Magnesium (1.7-2.4) mg/dl Total Bilirubin (0.2-1.0) mg/dl AST (13-39) U/L ALT (7-52) U/L Alkaline Phosphatase (34-104) U/L Troponin I High Sens (0-14) pg/ml Total Protein (6.0-8.3) gm/dl Albumin (3.4-5.0) gm/dl Globulin (2.5-4.0) gm/dl Albumin/Globulin Ratio (0.9-2) Lipase (11-82) U/L Urine Test Negative (Negative) Urine Opiates Screen Neg (Neg) Ur Methadone, Qual Neg (Neg) Urine Barbiturates Neg (Neg) Ur Phencyclidine (PCP) Neg (Neg) U Amphetamin/Meth Scrn Neg (Neg) MDMA (Ecstasy) Screen Neg (Neg) U Benzodiazepines Scrn Pos H (Neg) Ur Cocaine Metabolite Neg (Neg) U Marijuana (THC) Screen Neg (Neg) SARS-CoV-2, RNA, NAAT (NEGATIVE) 03/23/22 Range/Units 15:10 WBC (4.8-10.8) K/ul RBC (3.93-5.22) M/uL Hgb (12.0-16.0) g/dl Hct (34.1-44.9) % MCV (80.0-100.0) fL MCH (25.0-34.0) pg MCHC (32.0-36.0) g/dL RDW Std Deviation (36.4-46.3) fL RDW Coeff of Dallin (11.5-14.5) % Plt Count (130-400) K/uL MPV (9.4-12.3) fL Immature Gran % (Auto) % Neut % (Auto) % Lymph % (Auto) % Borden % (Auto) % Eos % (Auto) % Baso % (Auto) % Neut # (Auto) (1.4-6.5) K/uL Lymph # (Auto) (1.2-3.4) K/uL Borden # (Auto) (0.24-0.82) K/uL Eos # (Auto) (0-0.50) K/uL Baso # (Auto) (0-0.2) K/uL Immature Gran # (Auto) (0.00-0.02) K/uL D-Dimer (0-500) ug/L FEU Sodium (136-145) mmol/L Potassium (3.5-5.1) mmol/L Chloride (98-107) mmol/L Carbon Dioxide (21-32) mmol/L Anion Gap (3-11) BUN (6-23) mg/dl Creatinine (0.6-1.2) mg/dl Est Cr Clr Drug Dosing ml/min Est GFR ( Amer) ml/min Est GFR (Non-Af Amer) ml/min BUN/Creatinine Ratio (10-20) Glucose (70-99(Fasting)) mg/dl Calcium (8.5-10.1) mg/dl Magnesium (1.7-2.4) mg/dl Total Bilirubin (0.2-1.0) mg/dl AST (13-39) U/L ALT (7-52) U/L Alkaline Phosphatase (34-104) U/L Troponin I High Sens (0-14) pg/ml Total Protein (6.0-8.3) gm/dl Albumin (3.4-5.0) gm/dl Globulin (2.5-4.0) gm/dl Albumin/Globulin Ratio (0.9-2) Lipase (11-82) U/L Urine Test (Negative) Urine Opiates Screen (Neg) Ur Methadone, Qual (Neg) Urine Barbiturates (Neg) Ur Phencyclidine (PCP) (Neg) U Amphetamin/Meth Scrn (Neg) MDMA (Ecstasy) Screen (Neg) U Benzodiazepines Scrn (Neg) Ur Cocaine Metabolite (Neg) U Marijuana (THC) Screen (Neg) SARS-CoV-2, RNA, NAAT NEGATIVE (NEGATIVE) Administered Medications Chlordiazepoxide HCl (Chlordiazepoxide Hcl 25 Mg Cap) 50 mg PO Q8H JOSE F Stop: 04/22/22 18:40 Last Admin: 03/23/22 21:36 Dose: 50 mg Documented By: MTR Enoxaparin Sodium (Enoxaparin Inj 40 Mg/0.4 Ml Syr) 40 mg SQ Q24H JOSE F Stop: 04/22/22 18:40 Last Admin: 03/23/22 21:33 Dose: 40 mg Documented By: MTR Folic Acid (Folic Acid 1 Mg Tab) 1 mg PO QAM JOSE F Stop: 04/22/22 18:40 Last Admin: 03/23/22 21:30 Dose: 1 mg Documented By: MTR Lorazepam (Lorazepam 2 Mg/1 Ml Vial) 2 mg IV UD PRN; Protocol PRN Reason: EtOH Withdrawal AWSS Score 8,9 Stop: 04/22/22 18:40 Last Admin: 03/23/22 21:14 Dose: 2 mg Documented By: MTR Mirtazapine (Mirtazapine Tab 15 Mg Tab) 15 mg PO HS JOSE F Stop: 04/22/22 20:59 Last Admin: 12/24/22 21:31 Dose: 15 mg Documented By: KAREN Propranolol HCl (Propranolol Hcl 10 Mg Tab) 5 mg PO AMHS JOSE F Stop: 04/22/22 20:59 Last Admin: 03/23/22 21:31 Dose: 5 mg Documented By: MTR Discontinued Medications Aspirin (Aspirin Chew 324 Mg) 324 mg PO NOW STA Stop: 03/23/22 15:18 Last Admin: 03/23/22 15:48 Dose: 324 mg Documented By: JESSICA Gabapentin (Gabapentin 600 Mg Tab) 1,200 mg PO NOW ONE Stop: 03/23/22 20:31 Last Admin: 03/23/22 21:29 Dose: 1,200 mg Documented By: KAREN Sodium Chloride (Nss 1000ml) 2,000 mls @ 999 mls/hr IV .Q2H1M ONE Stop: 03/23/22 17:07 Last Infusion: 03/23/22 20:08 Dose: 0 mls/hr Documented By: Admin: 03/23/22 15:48 Dose: 999 mls/hr Documented By: JESSICA Multivitamins 10 ml/ Thiamine HCl 100 mg/ Folic Acid 1 mg/Sodium Chloride 1,011.2 mls @ 1,011.2 mls/hr IV .Q1H STA Stop: 03/23/22 19:40 Last Admin: 03/23/22 21:14 Dose: 1,011.2 mls/hr Documented By: KAREN Lactated Ringer's (Lr) 1,000 mls @ 999 mls/hr IV .Q1H1M STA Stop: 03/23/22 19:41 Last Admin: 03/23/22 21:29 Dose: 999 mls/hr Documented By: KAREN Ioversol (Optiray 320 500ml) 115 ml IV ONCE ONE Stop: 03/23/22 16:18 Last Admin: 03/23/22 16:18 Dose: 115 ml Documented By: OSMIN Lorazepam (Lorazepam 2 Mg/1 Ml Vial) 2 mg IV NOW STA Stop: 03/23/22 15:08 Last Admin: 03/23/22 20:08 Dose: Not Given Documented By: KAREN Lorazepam (Lorazepam 2 Mg/1 Ml Vial) 2 mg IV NOW STA Stop: 03/23/22 15:08 Last Admin: 03/23/22 15:45 Dose: 2 mg Documented By: JESSICA Ondansetron HCl (Ondansetron Inj 2 Mg/Ml 2 Ml Vial) 4 mg IV NOW STA Stop: 03/23/22 15:08 Last Admin: 03/23/22 15:48 Dose: 4 mg Documented By: JESSICA Imaging Data Radiologist's Impression: Chest X-Ray 03/23/22 14:52 XR chest 1V portable CLINICAL HISTORY: Chest pain, nonspecific TECHNIQUE: Single frontal radiograph of the chest was obtained. Comparison: Comparison is made to chest radiograph 02/01/2022 FINDINGS: No lines and tubes are seen. The cardiomediastinal silhouette is normal. The lungs are clear. No evidence of pleural effusion or pneumothorax. IMPRESSION: No acute chest disease. ACT 112: Negative or not required by law. Electronically signed by: Lester Johnson M.D. 03/23/2022 3:06 PM Discharge Plan Visit Data Chief Complaint: Detox Request Stated Complaint: ALCOHOL WITHDRAW, CHEST PAIN, VOMITING ED Provider: Issa Villa Discharge Problem: Chest pain, Alcohol abuse, Alcohol withdrawal, Hypokalemia, ECG abnormal, Metabolic acidosis Patient Disposition: Admitted As Inpatient Discharge Instructions Interventions: ED Discharge Assessment Last Done: 03/23/22 18:30
[2022-03-23] MEDS ORDERED: ASPIRIN CHEW 324 MG PO STA (15:17)
[2022-03-23 15:25] LABS: Albumin Globulin Ratio 1.5 (0.9-2); Albumin Level 5.1 gm/dl (3.4-5.0); BUN Creatinine Ratio 15.3 (10-20); Bilirubin,Total 1.8 mg/dl (0.2-1.0); Calcium 8.8 mg/dl (8.5-10.1); Creatinine Clr Calc Pharmacy 123.5 ml/min; Globulin 3.4 gm/dl (2.5-4.0); Potassium 3.9 mmol/L (3.5-5.1); Total Protein 8.5 gm/dl (6.0-8.3)
[2022-03-23 15:30] LABS: Troponin I High Sensitivity 5.7 pg/ml (0-14)
[2022-03-23 15:40] LABS: D Dimer 1460 ug/L FEU (0-500)
[2022-03-23] MEDS ORDERED: OPTIRAY 320 500ml IV ONE (16:17)
--- NOTE | 2022-03-23 17:26 | CT Scan Report ---
CT angio chest PE protocol CLINICAL HISTORY: PE TECHNIQUE: Multidetector row helical CT of the chest was performed with angiographic protocol. Harvey l and sagittal reformations were obtained. Coronal and sagittal MIPS were obtained from the axial jennifer a set and were submitted for review. Automated dose lowering techniques and/or adjustment according to patient size were utilized for this exam. CT DOSE: 485.91 mGycm Comparison: Comparison is made to chest 08/27/2020 FINDINGS: Lungs and pleura: Normal. Heart and pericardium: Heart size is normal. No pericardial effusion. Vessels: No evidence of pulmonary embolism. Mediastinum and sariah: Unremarkable. Chest wall and lower neck: Unremarkable. Abdomen: Hepatic steatosis is seen. Bones: Degenerative changes in the thoracic spine. IMPRESSION: 1. No evidence of pulmonary embolism. 2. Hepatic steatosis in this patient with history of alcoholism. ACT 112: Negative or not required by law. Electronically signed by: Lester Johnson M.D. 03/23/2022 5:25 PM
[2022-03-23] MEDS ORDERED: ALUMINUM/MAGNESIUM SUSP 30 ML UDC PO PRN (18:41)
[2022-03-23] MEDS ORDERED: LACTATED RINGER'S 1,000 ML IV STA (18:41)
[2022-03-23] MEDS ORDERED: MULTI-VITAMIN INFUSION 10 ML, THIAMINE HCL 100 MG, FOLIC ACID 1 MG in SODIUM CHLORIDE 0... IV STA (18:41)
[2022-03-23] MEDS ORDERED: cloNIDine HCL 0.1 MG TAB PO PRN (18:41)
[2022-03-23] MEDS ORDERED: ONDANSETRON INJ 2 MG/ML 2 ML VIAL IV PRN (18:41)
[2022-03-23] MEDS ORDERED: LORazepam 2 MG/1 ML VIAL IV PRN ×3 (18:41)
[2022-03-23] MEDS ORDERED: METOPROLOL TARTRATE 1 MG/ML VIAL IV PRN (18:41)
[2022-03-23] MEDS ORDERED: GABAPENTIN 1200MG ALCOHOL WITHDRAWAL LOAD PO STA (18:41)
[2022-03-23] MEDS ORDERED: Ativan IV Alcohol Withdrawal--Active Protocol IV PRN (18:41)
[2022-03-23] MEDS ORDERED: ENOXAPARIN INJ 40 MG/0.4 ML SYR SQ SCH (18:41)
[2022-03-23] MEDS ORDERED: GABAPENTIN 600 MG TAB PO ONE (20:30)
[2022-03-23 20:50] LABS: Pregnancy Test, Urine Negative (Negative)
[2022-03-23] MEDS ORDERED: MIRTAZAPINE TAB 15 MG TAB PO SCH (21:00)
[2022-03-23 21:23] LABS: Amphetamines+Metham, Urine Neg (Neg); Barbiturates, Urine Neg (Neg); Benzodiazepine, Urine Pos (Neg); Cocaine, Urine Neg (Neg); MDMA (Ecstacy), Urine Neg (Neg); Methadone, Urine Neg (Neg); Opiate, Urine Neg (Neg); Phencyclidine, Urine Neg (Neg)
[2022-03-23] MEDS: FOLIC ACID 1 MG TAB PO SCH (21:30)
[2022-03-23] MEDS: PROPRANOLOL HCL 10 MG TAB PO SCH (21:31)
[2022-03-23] MEDS: chlordiazePOXIDE HCl 25 MG CAP PO SCH (21:36)
[2022-03-23] MEDS: LACTATED RINGER'S 1,000 ML IV SCH (22:31)
[2022-03-24] MEDS: chlordiazePOXIDE HCl 25 MG CAP PO SCH ×2 (03:18→10:43)
[2022-03-24] MEDS: LACTATED RINGER'S 1,000 ML IV SCH (05:33)
[2022-03-24] MEDS ORDERED: GABAPENTIN 600 MG TAB PO SCH ×2 (06:00→22:00)
[2022-03-24 06:41] LABS: Albumin Globulin Ratio 1.7 (0.9-2); Albumin Level 3.9 gm/dl (3.4-5.0); BUN Creatinine Ratio 11.9 (10-20); Bilirubin,Total 1.8 mg/dl (0.2-1.0); Calcium 7.5 mg/dl (8.5-10.1); Creatinine Clr Calc Pharmacy 150.7 ml/min; Est GFR (African American) 135.7 ml/min; Est GFR (Non-African American) 117.1 ml/min; Globulin 2.3 gm/dl (2.5-4.0); Magnesium 1.7 mg/dl (1.7-2.4); Potassium 3.6 mmol/L (3.5-5.1); Total Protein 6.2 gm/dl (6.0-8.3)
[2022-03-24 06:45] LABS: Prothrombin Time 10.4 Seconds (9.0-12.0)
[2022-03-24] MEDS: PROPRANOLOL HCL 10 MG TAB PO SCH (08:53)
[2022-03-24] MEDS: FOLIC ACID 1 MG TAB PO SCH (08:54)
[2022-03-24] MEDS ORDERED: LINACLOTIDE 145 MCG CAPSULE PO SCH (09:00)
[2022-03-24] MEDS ORDERED: THIAMINE HCL 100 MG TAB PO SCH (09:00)
[2022-03-24] MEDS ORDERED: DULoxetine HCL 60 MG CAP PO SCH (09:00)
[2022-03-24] MEDS ORDERED: DULoxetine HCL 30 MG CAP PO SCH (09:00)
--- NOTE | 2022-03-24 10:33 | Electrocardiogram Report ---
Test Reason : Blood Pressure : / mmHG Vent. Rate : 099 BPM Atrial Rate : 099 BPM P-R Int : 132 ms QRS Dur : 080 ms QT Int : 392 ms P-R-T Axes : 068 048 013 degrees QTc Int : 503 ms Normal sinus rhythm Prolonged QT Abnormal ECG When compared with ECG of 01-FEB-2022 14:04, The anterolateral T wave inversions are worse Confirmed by Bandar Reyes ([id number]) on 03/24/2022 10:32:47 AM Referred By: REFERRED SELF Confirmed By:Bandar Reyes
--- NOTE | 2022-03-24 14:40 | Electrocardiogram Report ---
Test Reason : Blood Pressure : / mmHG Vent. Rate : 087 BPM Atrial Rate : 087 BPM P-R Int : 134 ms QRS Dur : 088 ms QT Int : 438 ms P-R-T Axes : 045 038 025 degrees QTc Int : 527 ms Normal sinus rhythm T wave abnormality, consider anterolateral ischemia Prolonged QT Abnormal ECG When compared with ECG of 23-MAR-2022 14:53, (unconfirmed) Nonspecific T wave abnormality no longer evident in Inferior leads T wave inversion less evident in Lateral leads Confirmed by Bandar Reyes ([id number]) on 03/24/2022 2:40:22 PM Referred By: REFERRED SELF Confirmed By:Bandar Reyes
--- NOTE | 2022-03-24 17:35 | Discharge Summary ---
Date of Service March 24, 2022 Admission HPI Per Admitting Provider 36-year-old female with history of alcohol abuse presents with abdominal pain tremulousness tachypnea dyspnea on exertion. Patient states she is been drinking 1/5 of vodka for 3 weeks after she received troubling interaction with her ex [id number]. He says this sent her into a spiral of her PTSD poor sleep and then she self medicated with alcohol. Patient states that she was receiving naltrexone injections received 1 2 months ago but missed her most recent one. In the emergency department she is tearful she is tremulous she is tachycardic and hypertensive Principal Diagnosis Alcohol withdrawal, improving Discharge Exam In general she is awake alert oriented, pleasant no distress. HEENT normocephalic atraumatic mucous membranes moist. Cardio regular, nontachycardic. No rubs murmurs gallops. Lungs clear to auscultation bilaterally no rales rhonchi or wheezes good effort. Skin shows no rashes, no pallor or icterus. Neuro shows cranial nerves II through XII are grossly intact, she is not tremulous. Mental status shows her to be awake alert oriented calm nonanxious and pleasantly interactive. Discharge Data Allergies Allergy/AdvReac Type Severity Reaction Status Date / Time lactose Allergy Unknown Verified 02/05/22 12:33 Consultations 03/23/22 15:07 ED Decision to Admit Stat Ordered Studies 03/23/22 15:40 CT angio chest PE protocol Stat Hospital Course (1) Alcohol withdrawal: Fortunately appears to be improving, has not needed a whole lot of Ativan. Would like to go home, and given that she is not tachycardic, diaphoretic, anxious, or tremulousthis seems quite reasonable. Discussed with her that she is not yet far enough removed from her last drink but she is completely "in the clear" but that it would be extremely rare for somebody to be improving from withdrawal and then regress. She noted that her PCP had prescribed a Librium taperI see this in her med listrecommended she utilize this at this time. Continue outpatient Revatio. She notes that she has a supportive household, and believes she will do well. (2) Anxiety with depression: Home on home meds, outpatient follow-up (3) Reflux esophagitis: Home meds. Outpatient follow-up (4) ECG abnormal: pt has non specific t wave changes that are not acs, these have been present to some degree (sometimes more pronounced than others) for quite a while on prior EKGs. Troponins have always been negative, as has been the case this admission. Considered obtaining echocardiogram given that it has not been done, but given patient's desire to go home, and the low acuity for it, this can be deferred to the outpatient setting. Patient had a elevated D-dimer underwent a CT angiography this was unremarkable. Patient's electrolytes are within normal limits (5) Hepatic steatosis: From alcohol abuse. Outpatient follow-up Total Time Total Time Spent Total Time Spent (In Minutes): Less than 30 Discharge Plan Discharge Items Patient Disposition: Home - Self-Care Reason For Visit: ALCOHOL WITHDRAW Discharge Diagnosis: withdrawal - improving Activity: Resume your previous activity Non-emergency contact: Primary Care Provider Call non-emergency contact if: you have any medication questions Follow-up/Referrals: Alicia Mcgee MD [Primary Care Provider] - Diet: Regular Addtl Attending Provider Instructions: take the librium taper as prescribed by dr mcgee. as we discussed, it's very rare for withdrawal to worsen once someone has started to turn the corner (i've never seen it in almost 2 decades of practice) - but, if you were to feel worse (most noticable by being more shaky, feeling your heart race, feeling oddly anxious) - then we would want you to come back to the hospital Pending Studies at Discharge: No Stand-Alone Forms: My [facility] [employer], Smoking Cessation Medications and DC Order Prescriptions: Continued duloxetine 30 mg capsule,delayed release(DR/EC) 30 mg PO DAILY thiamine HCl (vitamin B1) 100 mg tablet 100 mg PO DAILY mirtazapine 15 mg tablet 15 mg PO HS gabapentin 300 mg capsule 300 mg PO TID hydroxyzine pamoate [Vistaril] 50 mg capsule 50 mg PO TID prazosin 1 mg capsule 3 mg PO HS chlordiazepoxide HCl 25 mg capsule 50 mg PO DIRECTED PRN (Reason: Anxiety) Rx Instructions: take 50mg (2 tablets) every eight hours for three doses, then 25mg every eight hours for three doses, then continue your 10mg every twelve hours twice daily for two doses. cyclobenzaprine 10 mg tablet 10 mg PO BID PRN (Reason: muscle spasms) Mirena 20 mcg/24 hours (8 yrs) 52 mg Intrauterine Device 0 mcg INTRAUTERINE DIRECTED duloxetine 60 mg capsule,delayed release(DR/EC) 60 mg PO DAILY propranolol 10 mg tablet 5 mg PO AMHS folic acid 400 mcg tablet 400 mcg PO DAILY Qty: 30 0RF cyanocobalamin (vitamin B-12) 1,000 mcg capsule 1,000 mcg PO DAILY Qty: 30 0RF Discharge Orders: Discharge Order (Routine); Ordered 03/24/22 Ordered By: Issa Ma Admission Data Admit Date/Time: 03/23/22 15:14 Attending Provider: Issa Ma Admit Provider: Justin Bustamante Primary Care Provider: Alicia Mcgee Other Providers: Justin Bustamante Other Interventions: Discharge Summary Assessment (RN) Last Done: 03/24/22 10:40 Coding Level of Care Code D/C DAY MANAGEMENT <30 MINS Diagnoses Alcohol withdrawal F10.939 Anxiety with depression F41.8 Reflux esophagitis K21.00 ECG abnormal R94.31 Hepatic steatosis K76.0
[2022-03-26] MEDS ORDERED: GABAPENTIN 600 MG TAB PO SCH (00:30)
[2022-03-27] MEDS ORDERED: GABAPENTIN 600 MG TAB PO SCH (12:30)
[2022-03-28 00:18] LABS: 7-Aminoclonaz, Confirm NEGATIVE ng/mL (<25); Hydro-Alp Ur, GC/MS NEGATIVE ng/mL (<25); Hydroxyethylflurazepam, Conf NEGATIVE ng/mL (<50); Hydroxymidazolam Ur, GC/MS NEGATIVE ng/mL (<50); Hydroxytriazolam NEGATIVE ng/mL (<50); Lorazepam, Ur GC/MS NEGATIVE ng/mL (<50); Nordiazepam, Confirm NEGATIVE ng/mL (<50); Oxazepam Ur, GC/MS NEGATIVE ng/mL (<50); Temazepam, Confirm NEGATIVE ng/mL (<50)
== END 2022-03-24 11:34 | disposition home or self-care (01) ==
LOC: ED 13:55 → SUATTDRO 15:14 → 4W 15:14 → INTOOBSV 15:14 → 4W 18:30

== ENCOUNTER 2022-04-21 20:37 | Inpatient (IN) ==
[2022-04-21] MEDS ORDERED: SODIUM CHLORIDE 0.9% 1000ML 2,000 ML IV ONE (21:00)
[2022-04-21] MEDS ORDERED: ONDANSETRON INJ 2 MG/ML 2 ML VIAL IV STA (21:03)
--- NOTE | 2022-04-21 21:06 | Emergency Department Note ---
Impression & Plan Alcohol abuse, Acute hypokalemia, Acute pancreatitis, Transaminitis ED Provider Note NAME: PHILLIP AMARO AGE: 36 SEX: F : 1985 ARRIVES VIA: Walk-In INFORMANT: Patient ED PROVIDER(S): Issa Villa DO CHIEF COMPLAINT: chest pain and abdominal pain HPI: Patient is a 36-year-old female with a past medical history of alcohol abuse, PTSD, abnormal EKG that presents to the ER for drinking a fifth of vodka a day for the past 3 weeks. She took her last drink this morning. This was some around 10 AM. About 2 to 3 hours after that she started having left-sided anterior chest wall pain as well as epigastric abdominal pain. She admits to feeling a little shaky. History of withdrawal seizures. She is currently accepted at a alcohol treatment facility but needs to be admitted here per the facility prior to transport due to the history of withdrawal seizures. PAST MEDICAL HISTORY:See Below PAST SURGICAL HISTORY:See Below FAMILY HISTORY:See Below SOCIAL HISTORY:See Below HOME MEDICATIONS:See Below ALLERGIES:See Below VITALS:See Below PHYSICAL EXAMINATION: GENERAL: Sitting up in bed, alert, well appearing, well nourished, no distress, non-toxic EYE EXAM: normal conjunctiva. OROPHARYNX: no exudate, no erythema, lips, buccal mucosa, and tongue normal and mucous membranes are moist NECK: supple, no nuchal rigidity, no adenopathy, non-tender LUNGS: Clear to auscultation. Normal chest wall mechanics HEART: no murmurs, S1 normal and S2 normal ABDOMEN: abdomen soft, non-tender, normo-active bowel sounds, no masses, no rebound or guarding. UPPER EXTREMITIES: upper extremities are grossly normal. LOWER EXTREMITIES: No pitting edema. NEURO EXAM: Normal sensorium, cranial nerves II-XII grossly intact, normal speech, no gross weakness of arms, no gross weakness of legs. MEDICAL DECISION MAKING: Patient is a 36-year-old female is well-known alcoholic with presents the ER for withdrawal. History of withdrawal seizures. Admits to chest pain as well as abdominal pain. IV was established blood work was obtained. Labs show no significant leukocytosis or anemia. BMP with mild hyponatremia at 134. Mild hypokalemia 3.2. There is a transaminitis and I do favor this likely secondary to her alcohol abuse with the AST significantly larger than the ALT. Troponin was negative a significantly abnormal EKG but unchanged from previous. Lipase was elevated at 120. Alcohol 176. COVID-negative. Chest x-ray was clean. Patient was updated bedside. She was given IV fluids. External records were reviewed and she was discussed with Dr. Nicolas Lao for further evaluation and treatment. Patient did get accepted to a alcohol rehab facility but needs to be admitted here for 1 to 2 days. The rehab before she is excepted due to the history of alcohol withdrawal seizures. Triage Nursing notes reviewed. Limited review of prior medical records performed Vital Signs: reviewed and remarkable for no significant abnormalities Differential diagnosis: Differential diagnoses includes but is not limited to gastritis, peptic ulcer disease, GERD, gallbladder disease, pancreatitis, small bowel obstruction, appendicitis, diverticulitis, hernia, urinary tract infection, torsion, perforation, trauma, infectious. ER treatment provided: See below Diagnostics interpreted by me include EKG and cardiac monitoring as listed below: -Cardiac Monitoring: An order was placed for continuous cardiac monitoring. The monitor shows a rate of 89 with sinus rhythm. -ECG: Sinus rhythm rate 107 Normal axis No PVCs T wave inversion in V1 through V5 ST depressions in V2 through No significant change from previous\performed March 24 -Laboratory studies:Interpreted by me as stated above in MDM and shown below. Imaging studies: Xrays: As interpreted by me: Portable AP upright 1 view of the chest unremarkable CTs show: none Consultation(s): As described above discussed with Dr. Nicolas Lao Procedures:none Critical Care: None Past Med/Surg History Medical History Alcohol abuse Alcohol dependence Alcohol intoxication Alcohol withdrawal Anxiety with depression Breast lump on left side at 11 o'clock position Enteric intussusception Hepatic steatosis Hypokalemia Hypomagnesemia Miscarriage PTSD (post-traumatic stress disorder) Reflux gastritis Transaminitis Surgical History H/O foot surgery Previous section S/P dilation and curettage Family History Mother Depression Anxiety Brother Depression Anxiety Denies family history of Ovarian cancer Prostate cancer Diabetes Myocardial infarction Breast cancer Colorectal cancer Hypertension Social History Smoking Status: Never smoker Second Hand Exposure: No; Hx Alcohol Use: Yes Alcohol type: hard liquor Hx Substance Use: No Preferred Language: Gibraltarian Communication Ability: Effective Visual Impairment: No Limitations Hearing Ability: Normal [place] Required: No Beliefs That Will Affect Care: None marital status: Current Living Situation: Family Current Living Situation Comment: Parents and son 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[employer] How many Children do You have: 1 Feels Safe at Home: Yes Childhood Exposure to Second-Hand Smoke: No Dental Care, Regularly: Yes Physical Activity Frequency: 5-6 Times per Week Seatbelt Use: always Sunscreen Use: Yes Assistive Devices: None Allergies Allergies Allergy/AdvReac Type Severity Reaction Status Date / Time lactose Allergy Intermediate Gastrointestinal Verified 04/21/22 21:38 Upset Home Meds Home Medications Medication Instructions Recorded Confirmed gabapentin 300 mg capsule 300 mg PO TID 05/27/18 04/21/22 prazosin 1 mg capsule 3 mg PO HS 06/08/21 04/21/22 cyclobenzaprine 10 mg tablet 10 mg PO BID PRN muscle spasms 12/09/21 04/21/22 duloxetine 30 mg capsule,delayed 30 mg PO DAILY 01/15/22 04/21/22 release hydroxyzine pamoate 50 mg capsule 50 mg PO DAILY Anxiety 01/15/22 04/21/22 (Vistaril) mirtazapine 15 mg tablet 15 mg PO HS 01/15/22 04/21/22 thiamine HCl (vitamin B1) 100 mg 100 mg PO DAILY 01/15/22 04/21/22 tablet duloxetine 60 mg capsule,delayed 60 mg PO DAILY 02/01/22 04/21/22 release propranolol 10 mg tablet 5 mg PO AMHS 02/01/22 04/21/22 chlordiazepoxide HCl 10 mg capsule 10 mg PO DIRECTED PRN Anxiety 04/21/22 04/21/22 linaclotide 145 mcg capsule 145 mcg PO DAILY 04/21/22 04/21/22 (Linzess) Previous Rx's Medication Instructions Recorded cyanocobalamin (vitamin B-12) 1,000 mcg PO DAILY #30 caps 02/03/22 1,000 mcg capsule folic acid 400 mcg tablet 400 mcg PO DAILY #30 tabs 02/03/22 Results & Data (ED) Vital Signs Vital Signs - 24 hr 04/21/22 20:40 04/21/22 22:17 04/21/22 22:17 Temperature 36.5 C 36.8 C Temperature Source Temporal Artery Scan Oral Pulse Rate 127 H Pulse Rate [Right Finger] 93 H Pulse Rhythm [Right Finger] Regular Pulse Strength [Right Finger] Normal Respiratory Rate 20 19 Respiratory Effort / Characteristics Non-Labored Spontaneous Non-Labored Spontaneous Respiratory Depth Normal Normal Respiratory Pattern Regular Blood Pressure 135/95 Blood Pressure [Left Arm] 146/104 H Blood Pressure Mean 108 Blood Pressure Mean [Left Arm] 118 Blood Pressure Position Sitting Blood Pressure Position [Left Arm] Lying Pulse Oximetry 97 99 99 Oxygen Delivery Method Room Air Room Air Room Air Sepsis Recent Fever Within 48 Hours No Sepsis New/Unexplained Change in Mental Status N/A Sepsis Action Taken by Nursing No Action Required Laboratory Data 04/21/22 21:05 04/21/22 21:05 Lab Results 04/21/22 04/21/22 04/21/22 Range/Units 21:05 21:05 21:05 WBC 5.81 (4.8-10.8) K/ul RBC 3.75 L (3.93-5.22) M/uL Hgb 12.6 (12.0-16.0) g/dl Hct 35.2 (34.1-44.9) % MCV 93.9 (80.0-100.0) fL MCH 33.6 (25.0-34.0) pg MCHC 35.8 (32.0-36.0) g/dL RDW Std Deviation 50.4 H (36.4-46.3) fL RDW Coeff of Dallin 14.6 H (11.5-14.5) % Plt Count 74 L (130-400) K/uL MPV 11.9 (9.4-12.3) fL Immature Gran % (Auto) 0.3 % Neut % (Auto) 69.1 % Lymph % (Auto) 20.8 % Moffat % (Auto) 9.1 % Eos % (Auto) 0.0 % Baso % (Auto) 0.7 % Neut # (Auto) 4.01 (1.4-6.5) K/uL Lymph # (Auto) 1.21 (1.2-3.4) K/uL Moffat # (Auto) 0.53 (0.24-0.82) K/uL Eos # (Auto) 0.00 (0-0.50) K/uL Baso # (Auto) 0.04 (0-0.2) K/uL Immature Gran # (Auto) 0.02 (0.00-0.02) K/uL Sodium 134 L (136-145) mmol/L Potassium 3.2 L (3.5-5.1) mmol/L Chloride 89 L (98-107) mmol/L Carbon Dioxide 29 (21-32) mmol/L Anion Gap 16 H (3-11) BUN 12 (6-23) mg/dl Creatinine 0.60 (0.6-1.2) mg/dl Est Cr Clr Drug Dosing 148.1 ml/min Est GFR ( Amer) 135.0 ml/min Est GFR (Non-Af Amer) 116.4 ml/min BUN/Creatinine Ratio 20.0 (10-20) Glucose 123 H (70-99(Fasting)) mg/dl Calcium 9.7 (8.5-10.1) mg/dl Phosphorus (2.5-4.9) mg/dl Magnesium (1.7-2.4) mg/dl Total Bilirubin 0.9 (0.2-1.0) mg/dl AST 378 H (13-39) U/L ALT 175 H (7-52) U/L Alkaline Phosphatase 95 (34-104) U/L Troponin I High Sens 9.9 (0-14) pg/ml Total Protein 7.1 (6.0-8.3) gm/dl Albumin 4.4 (3.4-5.0) gm/dl Globulin 2.7 (2.5-4.0) gm/dl Albumin/Globulin Ratio 1.6 (0.9-2) Lipase 121 H (11-82) U/L Ethyl Alcohol mg/dL 176.8 H (<10.0) mg/dl SARS-CoV-2, RNA, NAAT (NEGATIVE) 04/21/22 04/21/22 Range/Units 21:05 23:04 WBC (4.8-10.8) K/ul RBC (3.93-5.22) M/uL Hgb (12.0-16.0) g/dl Hct (34.1-44.9) % MCV (80.0-100.0) fL MCH (25.0-34.0) pg MCHC (32.0-36.0) g/dL RDW Std Deviation (36.4-46.3) fL RDW Coeff of Dallin (11.5-14.5) % Plt Count (130-400) K/uL MPV (9.4-12.3) fL Immature Gran % (Auto) % Neut % (Auto) % Lymph % (Auto) % Moffat % (Auto) % Eos % (Auto) % Baso % (Auto) % Neut # (Auto) (1.4-6.5) K/uL Lymph # (Auto) (1.2-3.4) K/uL Moffat # (Auto) (0.24-0.82) K/uL Eos # (Auto) (0-0.50) K/uL Baso # (Auto) (0-0.2) K/uL Immature Gran # (Auto) (0.00-0.02) K/uL Sodium (136-145) mmol/L Potassium (3.5-5.1) mmol/L Chloride (98-107) mmol/L Carbon Dioxide (21-32) mmol/L Anion Gap (3-11) BUN (6-23) mg/dl Creatinine (0.6-1.2) mg/dl Est Cr Clr Drug Dosing ml/min Est GFR ( Amer) ml/min Est GFR (Non-Af Amer) ml/min BUN/Creatinine Ratio (10-20) Glucose (70-99(Fasting)) mg/dl Calcium (8.5-10.1) mg/dl Phosphorus 3.8 (2.5-4.9) mg/dl Magnesium 1.1 L (1.7-2.4) mg/dl Total Bilirubin (0.2-1.0) mg/dl AST (13-39) U/L ALT (7-52) U/L Alkaline Phosphatase (34-104) U/L Troponin I High Sens (0-14) pg/ml Total Protein (6.0-8.3) gm/dl Albumin (3.4-5.0) gm/dl Globulin (2.5-4.0) gm/dl Albumin/Globulin Ratio (0.9-2) Lipase (11-82) U/L Ethyl Alcohol mg/dL (<10.0) mg/dl SARS-CoV-2, RNA, NAAT NEGATIVE (NEGATIVE) Administered Medications Discontinued Medications Sodium Chloride (Nss 1000ml) 2,000 mls @ 999 mls/hr IV .Q2H1M ONE Stop: 04/21/22 23:00 Last Infusion: 04/21/22 23:00 Dose: 0 mls/hr Documented By: Admin: 04/21/22 21:03 Dose: 999 mls/hr Documented By: CESARIO Thiamine HCl 100 mg/ Syringe 10 mls @ 2 mls/min IV NOW STA Stop: 04/21/22 22:15 Last Admin: 04/21/22 22:37 Dose: 2 mls/min Documented By: CESARIO Ondansetron HCl (Ondansetron Inj 2 Mg/Ml 2 Ml Vial) 4 mg IV NOW STA Stop: 04/21/22 21:04 Last Admin: 04/21/22 21:16 Dose: 4 mg Documented By: CESAROI Discharge Plan Visit Data Chief Complaint: Alcohol Withdrawal Stated Complaint: ALCOHOL WITHDRAWAL, CHEST PAIN ED Provider: Issa Villa Discharge Problem: Alcohol abuse, Acute hypokalemia, Acute pancreatitis, Transaminitis Forms Stand Alone Forms: [facility], Suicide Prevention Resources Prescriptions Prescriptions: No Action duloxetine 30 mg capsule,delayed release(DR/EC) 30 mg PO DAILY Rx Instructions: TOTAL DOSE 90 MG--TAKES WITH 60 MG CAP. thiamine HCl (vitamin B1) 100 mg tablet 100 mg PO DAILY mirtazapine 15 mg tablet 15 mg PO HS gabapentin 300 mg capsule 300 mg PO TID hydroxyzine pamoate [Vistaril] 50 mg capsule 50 mg PO DAILY prazosin 1 mg capsule 3 mg PO HS chlordiazepoxide HCl 10 mg capsule 10 mg PO DIRECTED PRN (Reason: Anxiety) Linzess 145 mcg capsule 145 mcg PO DAILY cyclobenzaprine 10 mg tablet 10 mg PO BID PRN (Reason: muscle spasms) duloxetine 60 mg capsule,delayed release(DR/EC) 60 mg PO DAILY Rx Instructions: TOTAL DOSE 90 MG--TAKES WITH 30 MG CAP. propranolol 10 mg tablet 5 mg PO AMHS folic acid 400 mcg tablet 400 mcg PO DAILY Qty: 30 0RF cyanocobalamin (vitamin B-12) 1,000 mcg capsule 1,000 mcg PO DAILY Qty: 30 0RF Referrals Referrals: Alicia Mcgee MD [Primary Care Provider] -
[2022-04-21 21:39] LABS: Albumin Globulin Ratio 1.6 (0.9-2); Albumin Level 4.4 gm/dl (3.4-5.0); Bilirubin,Total 0.9 mg/dl (0.2-1.0); Calcium 9.7 mg/dl (8.5-10.1); Creatinine Clr Calc Pharmacy 148.1 ml/min; Est GFR (Non-African American) 116.4 ml/min; Globulin 2.7 gm/dl (2.5-4.0); Potassium 3.2 mmol/L (3.5-5.1); Total Protein 7.1 gm/dl (6.0-8.3)
[2022-04-21 21:44] LABS: Troponin I High Sensitivity 9.9 pg/ml (0-14)
[2022-04-21] MEDS ORDERED: THIAMINE HCL 100 MG in SYRINGE 9 ML IV STA (22:11)
--- NOTE | 2022-04-21 22:13 | History & Physical Report ---
Date of Service April 21, 2022 Assessment & Plan (1) Alcohol withdrawal: Plan: 36-year-old woman with alcohol use disorder admitted for recent episode of alcohol abuse x3 weeks. Now admitted for alcohol withdrawal management pending placement at alcohol abuse disorder treatment facility. Alcohol abuse/alcohol withdrawal -Multiple hospitalizations for alcohol use disorder, withdrawal management. -EtOH 176.8, K+ 3.2, phosphorus on admission. -Tremulous, tachycardic on admission. * IV thiamine 100 mg daily x5 days * D5 LR maintenance IV fluid * Electrolyte repletion (magnesium, potassium) per guidelines * Continue home folate, vitamin B12 daily * JAMES protocol with IV Ativan Thrombocytopenia -Platelet count of 74. 199 at last admission. * Trend CBC Electrolyte derangement -K+ 3.2, magnesium 1.1. Both repleted, as above * Trend daily PTSD/anxiety/depression -On duloxetine, mirtazapine, Vistaril for episodic anxiety. -Review of PDMP shows frequent filled prescriptions for chlordiazepoxide (10 mg and 25 mg, most recently January 2022), as well as phenobarbital (32.4 mg, most recently December 2021). -Is prescribed duloxetine, mirtazapine, gabapentin, prazosin, Vistaril. However, she admits to taking just Vistaril and gabapentin during 3-week drinking episode. -Tentatively scheduled to enter alcohol use disorder treatment facility at discharge. * Restarted duloxetine only. Held mirtazapine, Vistaril, prazosin. Will be receiving gabapentin as part of JAMES protocol. * Psychiatry consult for medical review, med rec. * Case management consult: DC planning re: inpatient psych vs alcohol rehab facility. Sciatic back pain * Home cyclobenzaprine 10 mg p.o. twice daily as needed Code: Full code Dispo: Med-Surg telemetry FEN/GI: NPO. D5 LR DVT Prophylaxis: None PT/OT: No Consults: Psychiatry, case management (2) Alcohol abuse: (3) PTSD (post-traumatic stress disorder): (4) Depression: (5) Hypokalemia: (6) Hypomagnesemia: (7) Transaminitis: History of Present Illness Primary Care Provider: Alicia Mcgee MD Radha is a 36-year-old woman with a history of alcohol use disorder (+ withdrawal seizures), pancreatitis, and posttraumatic stress disorder, who presents to the emergency room after a recent bout of alcohol abuse x3 weeks. She reports drinking a "fifth of vodka a day" over that period. She reports she had a last drink around 10 AM, 2 to 3 hours after which she began having epigastric abdominal pain and left-sided chest wall pain. ROS + tremors. She reports that she has been accepted at [place], an alcohol treatment facility in [place] but, due to her history of withdrawal seizures, would need hospital admission for supervision of withdrawal symptoms before she can go. In the ED, labs were notable for thrombocytopenia of 74k, K+ of 3.2, Na of 134, anion gap of 16, elevated AST and ALT of 378 and 175 respectively, and a lipase of 121. Ethyl alcohol level was 176.8. CXR negative for acute process. EKG showed sinus tachycardia with T wave inversions, ST depressions in lateral leads, however unchanged from last EKG performed a month ago. She received 2 L bolus of IV normal saline and Zofran for nausea. On admission, patient corroborates ED HPI, except her abdominal pain is in RUQ. ROS + PRESTON, SOB, N/V, and melena. She denies blurry vision, palpitations, dizziness, or loss of consciousness. She received IV thiamine 100 mg. Allergies Allergy/AdvReac Type Severity Reaction Status Date / Time lactose Allergy Intermediate Gastrointestinal Verified 04/21/22 21:38 Upset Home Medications Medication Instructions Recorded Confirmed Type gabapentin 300 mg capsule 300 mg PO TID 05/27/18 04/21/22 History prazosin 1 mg capsule 3 mg PO HS 06/08/21 04/21/22 History cyclobenzaprine 10 mg tablet 10 mg PO BID PRN muscle spasms 12/09/21 04/21/22 History duloxetine 30 mg capsule,delayed 30 mg PO DAILY 01/15/22 04/21/22 History release hydroxyzine pamoate 50 mg capsule 50 mg PO DAILY Anxiety 01/15/22 04/21/22 History (Vistaril) mirtazapine 15 mg tablet 15 mg PO HS 01/15/22 04/21/22 History thiamine HCl (vitamin B1) 100 mg 100 mg PO DAILY 01/15/22 04/21/22 History tablet duloxetine 60 mg capsule,delayed 60 mg PO DAILY 02/01/22 04/21/22 History release propranolol 10 mg tablet 5 mg PO AMHS 02/01/22 04/21/22 History cyanocobalamin (vitamin B-12) 1,000 mcg PO DAILY #30 caps 02/03/22 04/21/22 Rx 1,000 mcg capsule folic acid 400 mcg tablet 400 mcg PO DAILY #30 tabs 02/03/22 04/21/22 Rx chlordiazepoxide HCl 10 mg capsule 10 mg PO DIRECTED PRN Anxiety 04/21/22 04/21/22 History linaclotide 145 mcg capsule 145 mcg PO DAILY 04/21/22 04/21/22 History (Linzess) Past Med/Surg History Medical History Alcohol abuse Alcohol dependence Alcohol intoxication Alcohol withdrawal Anxiety with depression Breast lump on left side at 11 o'clock position Enteric intussusception Hepatic steatosis Hypokalemia Hypomagnesemia Miscarriage PTSD (post-traumatic stress disorder) Reflux gastritis Transaminitis Surgical History H/O foot surgery Previous section S/P dilation and curettage Family History Mother Depression Anxiety Brother Depression Anxiety Denies family history of Ovarian cancer Prostate cancer Diabetes Myocardial infarction Breast cancer Colorectal cancer Hypertension Social History Smoking Status: Never smoker Second Hand Exposure: No; Hx Alcohol Use: Yes Alcohol type: hard liquor Hx Substance Use: No Preferred Language: Occitan Communication Ability: Effective Visual Impairment: No Limitations Hearing Ability: Normal [place] Required: No Beliefs That Will Affect Care: None marital status: Current Living Situation: Parent Current Living Situation Comment: Lives with parents and son 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 HEENT: PERRLA. Normal conjunctiva, anicteric sclera. Oropharynx normal. Respiratory: Normal respiratory effort, CTA BL. Cardiovascular: Tachycardic, regular rhythm without murmurs, gallops, or rubs. No edema. GI: Soft abdomen with normal bowel sounds heard on auscultation. Moderately tender to palpation at RUQ. + Lezama sign. Neuro: Alert and oriented x3. UE tremor noted. Results & Data Results & Data ([facility]) Vital Signs (Past 12 Hours) Vital Signs Temp Pulse Resp BP Pulse Ox O2 Del Method 04/21/22 20:40 36.5 C 127 H 20 135/95 97 Room Air Supervising Physician Co-Signing Physician Notes Attending addendum: I have physically seen this patient, have supervised the medical residents activities, and agree with the H&P unless as otherwise noted. Assessment and Plan: Alcohol withdrawal- Multiple admissions for alcohol abuse and withdrawal, averaging about 1/month Alcohol level 176.8 AWSS protocol with IV Ativan Lactated Ringer's at 125 mils per hour Thiamine 100 mg IV x1, then thiamine 100 mg p.o. daily Folic acid 1 mg p.o. daily PTSD/anxiety/depression- Consult psychiatry Patient reports only taking Vistaril and gabapentin during this 3-week episode of drinking She has not been taking duloxetine, or mirtazapine Will resume duloxetine at partial dose 30 mg daily for now Remaining orders and notations as noted Resident Activity Tracking Resident Involvement: Resident Care Provided Care Provided: Adult Hospital Medicine
[2022-04-21 22:38] LABS: Magnesium 1.1 mg/dl (1.7-2.4); Phosphorus 3.8 mg/dl (2.5-4.9)
[2022-04-21 22:41] LABS: Basophils # (auto) 0.04 K/uL (0-0.2); Basophils % (auto) 0.7 %; Hematocrit (blood only) 35.2 % (34.1-44.9); Hemoglobin 12.6 g/dl (12.0-16.0); Immature Granulocytes # (auto) 0.02 K/uL (0.00-0.02); Immature Granulocytes % (auto) 0.3 %; Lymphocytes # (auto) 1.21 K/uL (1.2-3.4); Lymphocytes % (auto) 20.8 %; Mean Corpuscular Hemoglobin 33.6 pg (25.0-34.0); Mean Corpuscular Hgb Conc 35.8 g/dL (32.0-36.0); Mean Corpuscular Volume 93.9 fL (80.0-100.0); Mean Platelet Volume 11.9 fL (9.4-12.3); Monocytes # (auto) 0.53 K/uL (0.24-0.82); Monocytes % (auto) 9.1 %; Neutrophils # (auto) 4.01 K/uL (1.4-6.5); Neutrophils % (auto) 69.1 %; Platelet Count 74 K/uL (130-400); RDW Coefficient of Variation 14.6 % (11.5-14.5); RDW Standard Deviation 50.4 fL (36.4-46.3); Red Blood Count 3.75 M/uL (3.93-5.22); White Blood Count 5.81 K/ul (4.8-10.8)
[2022-04-22] MEDS ORDERED: MAGNESIUM SULFATE / D5W 1 GM/100 ML BAG IV SCH (00:15)
[2022-04-22] MEDS ORDERED: ONDANSETRON INJ 2 MG/ML 2 ML VIAL IV PRN (01:29)
[2022-04-22] MEDS ORDERED: GABAPENTIN 1200MG ALCOHOL WITHDRAWAL LOAD PO STA (01:29)
[2022-04-22] MEDS ORDERED: LORazepam 2 MG/1 ML VIAL IV PRN ×2 (01:29)
[2022-04-22] MEDS ORDERED: CYCLOBENZAPRINE HCL 10 MG TAB PO PRN (01:29)
[2022-04-22] MEDS ORDERED: Ativan IV Alcohol Withdrawal--Active Protocol IV PRN (01:29)
[2022-04-22] MEDS ORDERED: D5W AND LACTATED RINGERS 1,000 ML IV SCH (01:29)
[2022-04-22] MEDS ORDERED: GABAPENTIN 600 MG TAB PO ONE (01:29)
[2022-04-22] MEDS ORDERED: Ativan PO Alcohol Withdrawal--Active Protocol PO PRN (01:29)
[2022-04-22] MEDS: LORazepam 2 MG/1 ML VIAL IV PRN ×4 (01:52→12:44)
[2022-04-22] MEDS: POTASSIUM CHLORIDE / WTR 10 MEQ/100 ML PLCT IV SCH ×6 (02:07→06:51)
[2022-04-22] MEDS: MAGNESIUM SULFATE / D5W 1 GM/100 ML BAG IV SCH ×4 (02:58→08:53)
[2022-04-22 03:26] LABS: Albumin Globulin Ratio 1.6 (0.9-2); Albumin Level 4.1 gm/dl (3.4-5.0); BUN Creatinine Ratio 14.5 (10-20); Bilirubin,Total 1.1 mg/dl (0.2-1.0); Calcium 9.1 mg/dl (8.5-10.1); Creatinine Clr Calc Pharmacy 161.6 ml/min; Est GFR (African American) 138.9 ml/min; Est GFR (Non-African American) 119.8 ml/min; Globulin 2.5 gm/dl (2.5-4.0); Potassium 3.6 mmol/L (3.5-5.1); Total Protein 6.6 gm/dl (6.0-8.3)
[2022-04-22 03:34] LABS: Prothrombin Time 10.3 Seconds (9.0-12.0)
[2022-04-22 03:57] LABS: Basophils # (auto) 0.04 K/uL (0-0.2); Basophils % (auto) 0.9 %; Eosinophils # (auto) 0.03 K/uL (0-0.50); Eosinophils % (auto) 0.7 %; Hematocrit (blood only) 33.1 % (34.1-44.9); Hemoglobin 11.8 g/dl (12.0-16.0); Immature Granulocytes # (auto) 0.01 K/uL (0.00-0.02); Immature Granulocytes % (auto) 0.2 %; Lymphocytes # (auto) 1.31 K/uL (1.2-3.4); Lymphocytes % (auto) 29.5 %; Mean Corpuscular Hemoglobin 33.3 pg (25.0-34.0); Mean Corpuscular Hgb Conc 35.6 g/dL (32.0-36.0); Mean Corpuscular Volume 93.5 fL (80.0-100.0); Monocytes # (auto) 0.35 K/uL (0.24-0.82); Monocytes % (auto) 7.9 %; Neutrophils % (auto) 60.8 %; Platelet Count 69 K/uL (130-400); RDW Coefficient of Variation 14.6 % (11.5-14.5); RDW Standard Deviation 50.4 fL (36.4-46.3); Red Blood Count 3.54 M/uL (3.93-5.22); White Blood Count 4.44 K/ul (4.8-10.8)
--- NOTE | 2022-04-22 06:45 | Billing Data ---
Date of Service April 22, 2022 Coding Level of Care Code 81476 INT INP/OBS CARE
[2022-04-22] MEDS ORDERED: POTASSIUM PHOS 3 MMOL/1 ML INFUSION IV STA (07:13)
[2022-04-22] MEDS: LACTATED RINGER'S 1,000 ML IV SCH ×3 (07:26→23:35)
[2022-04-22] MEDS ORDERED: POTASSIUM PHOSPHATE 9 MMOL in SODIUM CHLORIDE 0.9% 250 ML IV ONE (07:30)
--- NOTE | 2022-04-22 08:27 | XRay Report ---
XR chest 1V portable HISTORY: Atypical chest pain. COMPARISON: Chest 03/23/2022. FINDINGS: The lungs are clear. Cardiac silhouette is normal in size. No pleural effusions. No pneumot horax. IMPRESSION: No acute process. ACT 112: Negative or not required by law. Electronically signed by: Jone Dupont M.D. 04/22/2022 8:25 AM
[2022-04-22] MEDS: THIAMINE HCL 200 MG in SODIUM CHLORIDE 0.9% 50 ML IV SCH (08:51)
[2022-04-22] MEDS: CYANOCOBALAMIN (B-12) 500 MCG TABLET PO SCH (08:55)
[2022-04-22] MEDS: DULoxetine HCL 30 MG CAP PO SCH (08:56)
[2022-04-22] MEDS: LINACLOTIDE 145 MCG CAPSULE PO SCH (08:56)
[2022-04-22] MEDS: GABAPENTIN 600 MG TAB PO SCH ×3 (08:57→22:05)
[2022-04-22] MEDS ORDERED: THIAMINE HCL 200 MG in SYRINGE 9 ML IV SCH (09:00)
[2022-04-22] MEDS ORDERED: FOLIC ACID 400 MCG TAB PO SCH (09:00)
[2022-04-22] MEDS ORDERED: THIAMINE HCL 100 MG in SYRINGE 9 ML IV SCH (09:00)
[2022-04-22] MEDS: FOLIC ACID 1 MG in SYRINGE 9.8 ML IV SCH (09:42)
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
--- NOTE | 2022-04-22 09:56 | Electrocardiogram Report ---
Test Reason : Blood Pressure : / mmHG Vent. Rate : 105 BPM Atrial Rate : 105 BPM P-R Int : 120 ms QRS Dur : 086 ms QT Int : 362 ms P-R-T Axes : 000 044 -61 degrees QTc Int : 478 ms Sinus tachycardia T wave abnormality, consider inferolateral ischemia Abnormal ECG When compared with ECG of 24-MAR-2022 00:25, T wave inversion now evident in Inferior leads Confirmed by Mike Brown ([id number]) on 04/22/2022 9:55:33 AM Referred By: REFERRED SELF Confirmed By:Oren Brown
[2022-04-22] MEDS: FAMOTIDINE 10 MG TABLET PO SCH (12:19)
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
--- NOTE | 2022-04-22 18:21 | Electrocardiogram Report ---
Test Reason : Blood Pressure : / mmHG Vent. Rate : 092 BPM Atrial Rate : 092 BPM P-R Int : 128 ms QRS Dur : 090 ms QT Int : 412 ms P-R-T Axes : 034 047 -07 degrees QTc Int : 509 ms Normal sinus rhythm Prolonged QT Abnormal ECG Confirmed by Mike Brown ([id number]) on 04/22/2022 6:21:28 PM Referred By: REFERRED SELF Confirmed By:Oren Brown
[2022-04-23] MEDS: GABAPENTIN 600 MG TAB PO SCH ×2 (06:34→13:23)
[2022-04-23] MEDS: FAMOTIDINE 10 MG TABLET PO SCH (07:59)
[2022-04-23] MEDS: CYANOCOBALAMIN (B-12) 500 MCG TABLET PO SCH (07:59)
[2022-04-23] MEDS: LINACLOTIDE 145 MCG CAPSULE PO SCH (07:59)
[2022-04-23] MEDS: LACTATED RINGER'S 1,000 ML IV SCH ×2 (08:00→16:19)
[2022-04-23] MEDS: THIAMINE HCL 200 MG in SODIUM CHLORIDE 0.9% 50 ML IV SCH (08:00)
[2022-04-23] MEDS: FOLIC ACID 1 MG in SYRINGE 9.8 ML IV SCH (08:00)
[2022-04-23] MEDS: DULoxetine HCL 30 MG CAP PO SCH (08:00)
[2022-04-23 08:38] LABS: Albumin Level 3.6 gm/dl (3.4-5.0); Bilirubin,Total 0.8 mg/dl (0.2-1.0); Calcium 9.1 mg/dl (8.5-10.1); Magnesium 1.6 mg/dl (1.7-2.4); Potassium 3.7 mmol/L (3.5-5.1)
[2022-04-23 08:44] LABS: Albumin Globulin Ratio 1.7 (0.9-2); BUN Creatinine Ratio 10.3 (10-20); Creatinine Clr Calc Pharmacy 153.3 ml/min; Est GFR (African American) 136.5 ml/min; Est GFR (Non-African American) 117.8 ml/min; Globulin 2.1 gm/dl (2.5-4.0); Phosphorus 3.7 mg/dl (2.5-4.9); Total Protein 5.7 gm/dl (6.0-8.3)
[2022-04-23 09:02] LABS: Basophils # (auto) 0.01 K/uL (0-0.2); Basophils % (auto) 0.3 %; Eosinophils # (auto) 0.16 K/uL (0-0.50); Eosinophils % (auto) 4.3 %; Hematocrit (blood only) 31.6 % (34.1-44.9); Hemoglobin 10.8 g/dl (12.0-16.0); Immature Granulocytes # (auto) 0.01 K/uL (0.00-0.02); Immature Granulocytes % (auto) 0.3 %; Lymphocytes # (auto) 1.44 K/uL (1.2-3.4); Lymphocytes % (auto) 38.9 %; Mean Corpuscular Hemoglobin 33.8 pg (25.0-34.0); Mean Corpuscular Hgb Conc 34.2 g/dL (32.0-36.0); Mean Corpuscular Volume 98.8 fL (80.0-100.0); Mean Platelet Volume 12.5 fL (9.4-12.3); Monocytes # (auto) 0.31 K/uL (0.24-0.82); Monocytes % (auto) 8.4 %; Neutrophils # (auto) 1.77 K/uL (1.4-6.5); Neutrophils % (auto) 47.8 %; Platelet Count 69 K/uL (130-400); RDW Coefficient of Variation 14.2 % (11.5-14.5); RDW Standard Deviation 51.8 fL (36.4-46.3)
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
[2022-04-23] MEDS: MAGNESIUM HYDROXIDE SUSP 30 ML UDC PO PRN (11:57)
[2022-04-24] MEDS: GABAPENTIN 600 MG TAB PO SCH ×2 (00:06→12:02)
[2022-04-24] MEDS: LACTATED RINGER'S 1,000 ML IV SCH ×2 (01:08→07:47)
[2022-04-24 07:22] LABS: Basophils # (auto) 0.03 K/uL (0-0.2); Basophils % (auto) 0.9 %; Eosinophils # (auto) 0.21 K/uL (0-0.50); Hemoglobin 9.7 g/dl (12.0-16.0); Immature Granulocytes # (auto) 0.01 K/uL (0.00-0.02); Immature Granulocytes % (auto) 0.3 %; Lymphocytes # (auto) 1.37 K/uL (1.2-3.4); Lymphocytes % (auto) 39.1 %; Mean Corpuscular Hemoglobin 33.7 pg (25.0-34.0); Mean Corpuscular Hgb Conc 34.6 g/dL (32.0-36.0); Mean Corpuscular Volume 97.2 fL (80.0-100.0); Mean Platelet Volume 12.2 fL (9.4-12.3); Monocytes # (auto) 0.37 K/uL (0.24-0.82); Monocytes % (auto) 10.6 %; Neutrophils # (auto) 1.51 K/uL (1.4-6.5); Neutrophils % (auto) 43.1 %; Platelet Count 73 K/uL (130-400); RDW Coefficient of Variation 13.8 % (11.5-14.5); RDW Standard Deviation 49.2 fL (36.4-46.3); Red Blood Count 2.88 M/uL (3.93-5.22)
--- NOTE | 2022-04-24 07:35 | Hospitalist Progress Note ---
Date of Service April 24, 2022 Assessment & Plan (1) Alcohol withdrawal: Plan: 36-year-old woman with alcohol use disorder admitted for recent episode of alcohol abuse x3 weeks. Now admitted for alcohol withdrawal management pending placement at alcohol abuse disorder treatment facility. Alcohol abuse/alcohol withdrawal -Multiple hospitalizations for alcohol use disorder, withdrawal management. -EtOH 176.8, K+ 3.2, phosphorus on admission. -Tremulous, tachycardic on admission. * IV thiamine 100 mg daily x5 days * D5 LR maintenance IV fluid * Electrolyte repletion (magnesium, potassium) per guidelines * Continue home folate, vitamin B12 daily * JAMES protocol with IV Ativan --- Discontinue IVF d/t suspected dilutional anemia, continue JAMES protocol, tremors resolved. Patient progressing well for discharge to rehab facility. Thrombocytopenia -Platelet count of 73. 199 at last admission. * Trend CBC Electrolyte derangement -K+ 3.2, magnesium 1.1. Both repleted, as above * Trend daily --- Hypokalemia 04/24, repleted PTSD/anxiety/depression -On duloxetine, mirtazapine, Vistaril for episodic anxiety. -Review of PDMP shows frequent filled prescriptions for chlordiazepoxide (10 mg and 25 mg, most recently January 2022), as well as phenobarbital (32.4 mg, most recently December 2021). -Is prescribed duloxetine, mirtazapine, gabapentin, prazosin, Vistaril. However, she admits to taking just Vistaril and gabapentin during 3-week drinking episode. -Tentatively scheduled to enter alcohol use disorder treatment facility at discharge. * Restarted duloxetine only. Held mirtazapine, Vistaril, prazosin. Will be receiving gabapentin as part of JAMES protocol. * Psychiatry consult for medical review, med rec. * Case management consult: DC planning re: inpatient psych vs alcohol rehab facility. --- Anticipate discharge to rehabilitation facility Sciatic back pain * Home cyclobenzaprine 10 mg p.o. twice daily as needed Code: Full code Dispo: Med-Surg telemetry FEN/GI: Regular, no IVF DVT Prophylaxis: Ambulation PT/OT: No Consults: Psychiatry, case management (2) Alcohol abuse: (3) PTSD (post-traumatic stress disorder): (4) Depression: (5) Hypokalemia: (6) Hypomagnesemia: (7) Transaminitis: Admission and Anticipated Discharge Date Admission Date: April 21, 2022 Supervising Physician Co-Signing Physician Notes I have seen patient and discussed her overall care with certified court/medical interpreter. I agree with current assessment and plan with my additional comments as below. Patient is admitted with alcohol intoxication and currently on AWOL protocol. She is doing well overall and appears to be medically stable. However, her hemoglobin has slightly decreased and her liver enzymes appear to be fluctuating slightly upward. At this time she denies any alcohol use or drug use in the hospital. We will recheck a alcohol level and ensure that her liver enzymes are improving prior to discharge. At this point her discharge plan is to go to [place] where she can have appropriate alcohol rehab. She appears very valerio vated and has good support from her son as well as her parents. If her liver enzymes continue to titrate upward it may be worth considering holding her Cymbalta for a brief period of time. Subjective 36 y/o female with history of alcohol use disorder with withdrawal seizures, pancreatitis, PTSD, and depression presents to ED with recent alcohol abuse for 3 weeks who is currently admitted for alcohol withdrawal symptom management prior to placement at alcohol abuse disorder treatment facility. 04/24: Patient is feeling well today and was resting comfortably upon arrival. Her tremors have resolved. She denies any chest pain, dyspnea, abdominal pain, or bowel/bladder changes. She was able to see her son yesterday which significantly improved her mood. She is optimistic about moving forward with rehab at [place]. Review of Systems Review of Systems: As per HPI Physical Exam Physical Exam: Gen: NAD, alert, interactive Resp:Non-labored, no wheezing/rhonchi/rales, CTAB CV:RRR, normal S1/S2, no M/R/G Abd: Soft, non-distended, no TTP, normoactive bowels, no masses Extr: 2+ dp bilaterally, no edema Skin: No rashes lesions or erythema Results & Data Results & Data ([facility]) Vital Signs (Past 12 Hours) Vital Signs Temp Pulse Pulse Resp BP Pulse Ox O2 Del Method 04/24/22 07:04 36.4 C L 86 16 131/90 99 Room Air 04/24/22 06:55 76 04/24/22 03:00 36.5 C 74 18 127/85 95 Room Air 04/24/22 01:04 78 04/23/22 22:00 37 C 85 18 122/83 98 Room Air Resident Activity Tracking Resident Involvement: Resident Care Provided Care Provided: Adult Hospital Medicine
[2022-04-24 07:40] LABS: Albumin Globulin Ratio 1.7 (0.9-2); Albumin Level 3.3 gm/dl (3.4-5.0); BUN Creatinine Ratio 9.4 (10-20); Bilirubin,Total 0.5 mg/dl (0.2-1.0); Calcium 8.4 mg/dl (8.5-10.1); Creatinine Clr Calc Pharmacy 167.7 ml/min; Est GFR (African American) 140.6 ml/min; Est GFR (Non-African American) 121.3 ml/min; Magnesium 1.3 mg/dl (1.7-2.4); Phosphorus 3.2 mg/dl (2.5-4.9); Potassium 3.3 mmol/L (3.5-5.1); Total Protein 5.3 gm/dl (6.0-8.3)
[2022-04-24] MEDS ORDERED: POTASSIUM CHLORIDE CRTAB 20 MEQ TABCR PO STA (07:57)
[2022-04-24] MEDS: THIAMINE HCL 200 MG in SODIUM CHLORIDE 0.9% 50 ML IV SCH (08:17)
[2022-04-24] MEDS: FOLIC ACID 1 MG in SYRINGE 9.8 ML IV SCH (08:20)
[2022-04-24] MEDS: FAMOTIDINE 10 MG TABLET PO SCH (08:21)
[2022-04-24] MEDS: CYANOCOBALAMIN (B-12) 500 MCG TABLET PO SCH (08:22)
[2022-04-24] MEDS: LINACLOTIDE 145 MCG CAPSULE PO SCH (08:22)
[2022-04-24] MEDS: DULoxetine HCL 30 MG CAP PO SCH (08:22)
[2022-04-25] MEDS: THIAMINE HCL 200 MG in SODIUM CHLORIDE 0.9% 50 ML IV SCH (08:21)
[2022-04-25] MEDS: FOLIC ACID 1 MG in SYRINGE 9.8 ML IV SCH (08:22)
[2022-04-25] MEDS: LINACLOTIDE 145 MCG CAPSULE PO SCH (08:32)
[2022-04-25] MEDS: CYANOCOBALAMIN (B-12) 500 MCG TABLET PO SCH (08:32)
[2022-04-25] MEDS: FAMOTIDINE 10 MG TABLET PO SCH (08:32)
[2022-04-25] MEDS: DULoxetine HCL 30 MG CAP PO SCH (08:32)
[2022-04-25 09:02] LABS: Albumin Globulin Ratio 1.6 (0.9-2); Albumin Level 3.9 gm/dl (3.4-5.0); BUN Creatinine Ratio 6.3 (10-20); Bilirubin,Total 0.5 mg/dl (0.2-1.0); Calcium 9.1 mg/dl (8.5-10.1); Creatinine Clr Calc Pharmacy 141.1 ml/min; Est GFR (African American) 132.8 ml/min; Est GFR (Non-African American) 114.6 ml/min; Globulin 2.4 gm/dl (2.5-4.0); Magnesium 1.4 mg/dl (1.7-2.4); Phosphorus 3.6 mg/dl (2.5-4.9); Potassium 3.6 mmol/L (3.5-5.1); Total Protein 6.3 gm/dl (6.0-8.3)
[2022-04-25] MEDS: MAGNESIUM SULFATE / D5W 1 GM/100 ML BAG IV SCH ×3 (10:02→13:18)
[2022-04-25] MEDS: MAGNESIUM HYDROXIDE SUSP 30 ML UDC PO PRN (10:09)
[2022-04-25] MEDS ORDERED: GABAPENTIN 600 MG TAB PO SCH (12:00)
[2022-04-25] MEDS ORDERED: hydrOXYzine HCl 25 MG TAB PO STA (12:41)
[2022-04-25 13:04] LABS: Basophils # (auto) 0.03 K/uL (0-0.2); Basophils % (auto) 0.7 %; Eosinophils # (auto) 0.23 K/uL (0-0.50); Eosinophils % (auto) 5.4 %; Hematocrit (blood only) 32.2 % (37.0-47.0); Hemoglobin 11.3 g/dl (12.0-16.0); Immature Granulocytes # (auto) 0.01 K/uL (0.01-0.20); Immature Granulocytes % (auto) 0.2 %; Lymphocytes # (auto) 1.67 K/uL (1.2-3.4); Lymphocytes % (auto) 39.5 %; Mean Corpuscular Hemoglobin 34.7 pg (25.0-34.0); Mean Corpuscular Hgb Conc 35.1 g/dL (32.0-36.0); Mean Corpuscular Volume 98.8 fL (80.0-100.0); Mean Platelet Volume 11.5 fL (9.4-12.4); Monocytes # (auto) 0.54 K/uL (0.11-0.59); Monocytes % (auto) 12.8 %; Neutrophils # (auto) 1.75 K/uL (1.40-6.50); Neutrophils % (auto) 41.4 %; Platelet Count 126 K/uL (130-400); RDW Coefficient of Variation 13.8 % (11.5-14.5); RDW Standard Deviation 49.3 fL (36.4-46.3); Red Blood Count 3.26 M/uL (4.20-5.40); White Blood Count 4.23 K/ul (4.8-10.8)
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
--- NOTE | 2022-04-25 19:55 | Ultrasound Report ---
ABDOMINAL ULTRASOUND, RIGHT UPPER QUADRANT HISTORY: Elevated liver enzymes, eval liver. COMPARISON: Abdomen and pelvis CT 12/09/2021. FINDINGS: Pancreas: Obscured by overlying bowel gas. Liver: The liver is echogenic consistent with fatty change. No intrahepatic bile duct dilatation. No hepatic masses. Gallbladder: No gallbladder wall thickening. No gallstones. CBD: 2 mm. Right kidney: No hydronephrosis. IMPRESSION: 1. Normal gallbladder. No gallstones. 2. Hepatic steatosis. ACT 112: Negative or not required by law. Electronically signed by: Jone Dupont M.D. 04/25/2022 7:54 PM
[2022-04-25] MEDS ORDERED: MELATONIN 3 MG TAB PO PRN (21:22)
[2022-04-25 22:25] LABS: Albumin Level 4.3 gm/dl (3.4-5.0); Bilirubin Direct 0.1 mg/dl (0-0.2); Bilirubin,Total 0.5 mg/dl (0.2-1.0)
[2022-04-25 22:31] LABS: Total Protein 6.9 gm/dl (6.0-8.3)
--- NOTE | 2022-04-26 07:40 | Hospitalist Progress Note ---
Date of Service April 26, 2022 Assessment & Plan (1) Alcohol withdrawal: Plan: 36-year-old woman with alcohol use disorder admitted for recent episode of alcohol abuse x3 weeks. Now admitted for alcohol withdrawal management pending placement at alcohol abuse disorder treatment facility. Alcohol abuse/alcohol withdrawal -Multiple hospitalizations for alcohol use disorder, withdrawal management. -EtOH 176.8, K+ 3.2, phosphorus on admission. -Tremulous, tachycardic on admission. * IV thiamine 100 mg daily x5 days * D5 LR maintenance IV fluid * Electrolyte repletion (magnesium, potassium) per guidelines * Continue home folate, vitamin B12 daily * JAMES protocol with IV Ativan -Discontinue IVF d/t suspected dilutional anemia, continue JAMES protocol, tremors resolved. Patient progressing well for discharge to rehab facility. --- Improvement of hemoconcentration 04/26, continuing to follow --- Transaminases have remained elevated throughout visit, w/ slight increase yesterday, likely 2/2 dc of IVF, patient asymptomatic --- RUQ US obtained out of abundance of caution, resulted as negative Thrombocytopenia -Platelet count of 73. 199 at last admission. * Trend CBC --- Improvement 04/26 with removal of IVF Electrolyte derangement -K+ 3.2, magnesium 1.1. Both repleted, as above * Trend daily --- Hypokalemia 04/24, repleted PTSD/anxiety/depression -On duloxetine, mirtazapine, Vistaril for episodic anxiety. -Review of PDMP shows frequent filled prescriptions for chlordiazepoxide (10 mg and 25 mg, most recently January 2022), as well as phenobarbital (32.4 mg, most recently December 2021). -Is prescribed duloxetine, mirtazapine, gabapentin, prazosin, Vistaril. However, she admits to taking just Vistaril and gabapentin during 3-week drinking episode. -Tentatively scheduled to enter alcohol use disorder treatment facility at discharge. * Restarted duloxetine only. Held mirtazapine, Vistaril, prazosin. Will be receiving gabapentin as part of JAMES protocol. * Psychiatry consult for medical review, med rec. * Case management consult: DC planning re: inpatient psych vs alcohol rehab facility. --- Anticipate discharge to rehabilitation facility Sciatic back pain * Home cyclobenzaprine 10 mg p.o. twice daily as needed Code: Full code Dispo: Med-Surg telemetry FEN/GI: Regular, no IVF DVT Prophylaxis: Ambulation PT/OT: No Consults: Psychiatry, case management (2) Alcohol abuse: (3) PTSD (post-traumatic stress disorder): (4) Depression: (5) Hypokalemia: (6) Hypomagnesemia: (7) Transaminitis: Admission and Anticipated Discharge Date Admission Date: April 21, 2022 Subjective 36 y/o female with history of alcohol use disorder with withdrawal seizures, pancreatitis, PTSD, and depression presents to ED with recent alcohol abuse for 3 weeks who is currently admitted for alcohol withdrawal symptom management prior to placement at alcohol abuse disorder treatment facility. Today, pt has no acute concerns. Pt has no new symptoms, tremor has resolved, and pt is motivated to start treatment at [facility]. Pt indicates that she would eventually like to be taking less medications overall and hopes that her upcoming treatment at [facility] will help with her medication consolidation goals. Review of Systems Review of Systems: As per HPI Physical Exam Physical Exam: Gen: NAD, alert, interactive Resp:Non-labored, no wheezing/rhonchi/rales, CTAB CV:RRR, normal S1/S2, no M/R/G Abd: Soft, non-distended, no TTP, normoactive bowels, no masses Extr: 2+ dp bilaterally, no edema Skin: No rashes lesions or erythema Results & Data Results & Data ([facility]) Vital Signs (Past 12 Hours) Vital Signs Temp Pulse Pulse Resp BP Pulse Ox O2 Del Method 04/26/22 03:04 36.6 C 78 16 105/68 97 Room Air 04/25/22 22:00 82 04/25/22 23:03 37.0 C 78 16 108/74 97 Room Air 04/25/22 19:58 36.6 C 90 18 116/79 94 Room Air
[2022-04-26 08:12] LABS: Basophils # (auto) 0.05 K/uL (0-0.2); Eosinophils # (auto) 0.16 K/uL (0-0.50); Eosinophils % (auto) 3.4 %; Hematocrit (blood only) 33.2 % (37.0-47.0); Hemoglobin 11.4 g/dl (12.0-16.0); Immature Granulocytes # (auto) 0.02 K/uL (0.01-0.20); Immature Granulocytes % (auto) 0.4 %; Lymphocytes # (auto) 1.87 K/uL (1.2-3.4); Lymphocytes % (auto) 39.2 %; Mean Corpuscular Hemoglobin 33.3 pg (25.0-34.0); Mean Corpuscular Hgb Conc 34.3 g/dL (32.0-36.0); Mean Corpuscular Volume 97.1 fL (80.0-100.0); Monocytes # (auto) 0.92 K/uL (0.11-0.59); Monocytes % (auto) 19.3 %; Neutrophils # (auto) 1.75 K/uL (1.40-6.50); Neutrophils % (auto) 36.7 %; Platelet Count 179 K/uL (130-400); RDW Coefficient of Variation 13.8 % (11.5-14.5); RDW Standard Deviation 48.9 fL (36.4-46.3); Red Blood Count 3.42 M/uL (4.20-5.40); White Blood Count 4.77 K/ul (4.8-10.8)
[2022-04-26 08:30] LABS: Bilirubin,Total 0.4 mg/dl (0.2-1.0); Calcium 8.9 mg/dl (8.5-10.1); Magnesium 1.8 mg/dl (1.7-2.4); Potassium 3.4 mmol/L (3.5-5.1)
[2022-04-26] MEDS: THIAMINE HCL 200 MG in SODIUM CHLORIDE 0.9% 50 ML IV SCH (08:35)
[2022-04-26] MEDS: FOLIC ACID 1 MG in SYRINGE 9.8 ML IV SCH (08:35)
[2022-04-26 08:36] LABS: Albumin Globulin Ratio 1.7 (0.9-2); BUN Creatinine Ratio 6.3 (10-20); Creatinine Clr Calc Pharmacy 141.1 ml/min; Est GFR (African American) 132.8 ml/min; Est GFR (Non-African American) 114.6 ml/min; Globulin 2.4 gm/dl (2.5-4.0); Phosphorus 3.5 mg/dl (2.5-4.9); Total Protein 6.4 gm/dl (6.0-8.3)
[2022-04-26] MEDS: CYANOCOBALAMIN (B-12) 500 MCG TABLET PO SCH (08:36)
[2022-04-26] MEDS: LINACLOTIDE 145 MCG CAPSULE PO SCH (08:36)
[2022-04-26] MEDS: FAMOTIDINE 10 MG TABLET PO SCH (08:36)
[2022-04-26] MEDS: DULoxetine HCL 30 MG CAP PO SCH (08:36)
[2022-04-26] MEDS ORDERED: IBUPROFEN 600 MG TAB PO PRN (10:55)
--- NOTE | 2022-04-26 14:31 | Discharge Summary ---
Date of Service April 26, 2022 Admission HPI Per Admitting Provider Radha is a 36-year-old woman with a history of alcohol use disorder (+ withdrawal seizures), pancreatitis, and posttraumatic stress disorder, who presents to the emergency room after a recent bout of alcohol abuse x3 weeks. She reports drinking a "fifth of vodka a day" over that period. She reports she had a last drink around 10 AM, 2 to 3 hours after which she began having epigastric abdominal pain and left-sided chest wall pain. ROS + tremors. She reports that she has been accepted at [facility], an alcohol treatment facility in [place] but, due to her history of withdrawal seizures, [facility] of withdrawal symptoms before she can go. In the ED, labs were notable for thrombocytopenia of 74k, K+ of 3.2, Na of 134, anion gap of 16, elevated AST and ALT of 378 and 175 respectively, and a lipase of 121. Ethyl alcohol level was 176.8. CXR negative for acute process. EKG showed sinus tachycardia with T wave inversions, ST depressions in lateral leads, however unchanged from last EKG performed a month ago. She received 2 L bolus of IV normal saline and Zofran for nausea. On admission, patient corroborates ED HPI, except her abdominal pain is in RUQ. ROS + PRESTON, SOB, N/V, and melena. She denies blurry vision, palpitations, dizziness, or loss of consciousness. She received IV thiamine 100 mg. Admission Exam Per Admitting Provider General: Cooperative but tremulous woman in no acute distress. HEENT: PERRLA. Normal conjunctiva, anicteric sclera. Oropharynx normal. Respiratory: Normal respiratory effort, CTA BL. Cardiovascular: Tachycardic, regular rhythm without murmurs, gallops, or rubs. No edema. GI: Soft abdomen with normal bowel sounds heard on auscultation. Moderately tender to palpation at RUQ. + Lezama sign. Neuro: Alert and oriented x3. UE tremor noted. Principal Diagnosis Alcohol Withdrawal Discharge Exam Gen: pleasant, NAD, alert, interactive HEENT: Supple, no LAD, no thyromegaly, no JVD Resp:Non-labored, no wheezing/rhonchi/rales, CTAB CV:RRR, normal S1/S2, no M/R/G Abd: Soft, non-distended, no TTP, normoactive bowels, no masses Extr: 2+ dp bilaterally, no edema, tremor resolved Skin: No rashes lesions or erythema Discharge Data Allergies Allergy/AdvReac Type Severity Reaction Status Date / Time lactose Allergy Intermediate Gastrointestinal Verified 04/21/22 21:38 Upset Consultations 04/21/22 22:51 ED Decision to Admit Stat 04/22/22 01:29 Consult Psychiatry Routine Ordered Studies 04/25/22 13:07 US abdomen [US liver] Routine Hospital Course (1) Alcohol withdrawal: (2) Alcohol abuse: (3) PTSD (post-traumatic stress disorder): (4) Depression: (5) Hypokalemia: (6) Hypomagnesemia: (7) Transaminitis: Plan 36-year-old woman with alcohol use disorder admitted for recent episode of alcohol abuse x3 weeks. Now admitted for alcohol withdrawal management pending placement at alcohol abuse disorder treatment facility. Alcohol abuse/alcohol withdrawal -Multiple hospitalizations for alcohol use disorder, withdrawal management. -EtOH 176.8, K+ 3.2, phosphorus on admission. -Tremulous, tachycardic on admission. * IV thiamine 100 mg daily x5 days * D5 LR maintenance IV fluid * Electrolyte repletion (magnesium, potassium) per guidelines * Continue home folate, vitamin B12 daily * JAMES protocol with IV Ativan-Discontinue IVF d/t suspected dilutional anemia, continue JAMES protocol, tremors resolved. Patient progressing well for discharge to rehab facility. --- Hemodilution resolving, continue to follow --- Transaminases downtrending, asymptomatic, RUQ ultrasound negative --- Continue Famotidine PRN Thrombocytopenia -Platelet count of 73. 199 at last admission. * Trend CBC --- Improvement 04/26 with removal of IVF Electrolyte derangement -K+ 3.2, magnesium 1.1. Both repleted, as above * Trend daily --- Hypokalemia 04/24, repleted PTSD/anxiety/depression -On duloxetine, mirtazapine, Vistaril for episodic anxiety. -Review of PDMP shows frequent filled prescriptions for chlordiazepoxide (10 mg and 25 mg, most recently January 2022), as well as phenobarbital (32.4 mg, most recently December 2021). -Is prescribed duloxetine, mirtazapine, gabapentin, prazosin, Vistaril. However, she admits to taking just Vistaril and gabapentin during 3-week drinking episode. -Tentatively scheduled to enter alcohol use disorder treatment facility at discharge. * Restarted duloxetine only. Held mirtazapine, Vistaril, prazosin. Will be receiving gabapentin as part of JAMES protocol. * Psychiatry consult for medical review, med rec. * Case management consult: DC planning re: inpatient psych vs alcohol rehab facility. --- Anticipate discharge to rehabilitation facility --- Continue home Propranolol and Prazosin for sleep Sciatic back pain * Home cyclobenzaprine 10 mg p.o. twice daily as needed Code:Full code Dispo:Med-Surg telemetry FEN/GI:Regular, no IVF DVT Prophylaxis:Ambulation PT/OT:No Total Time Total Time Spent Total Time Spent (In Minutes): Total time spent was 20 minutes at bedside, 15 minutes of chart review, 10 min documentation Discharge Plan Discharge Items Patient Disposition: Drug & Alcohol Rehab Reason For Visit: ALCOHOL WITHDRAWAL Discharge Diagnosis: Alcohol Withdrawal Activity: Per Instructions section Non-emergency contact: Primary Care Provider Call non-emergency contact if: you have any medication questions and your symptoms worsen Follow-up/Referrals: Alicia Mcgee MD [Primary Care Provider] - Diet: Regular Addtl Attending Provider Instructions: 36-year-old woman with alcohol use disorder admitted for recent episode of alcohol abuse x3 weeks. Now admitted for alcohol withdrawal management pending placement at alcohol abuse disorder treatment facility. Alcohol abuse/alcohol withdrawal -Multiple hospitalizations for alcohol use disorder, withdrawal management. -EtOH 176.8, K+ 3.2, phosphorus on admission. -Tremulous, tachycardic on admission. * IV thiamine 100 mg daily x5 days * D5 LR maintenance IV fluid * Electrolyte repletion (magnesium, potassium) per guidelines * Continue home folate, vitamin B12 daily * JAMES protocol with IV Ativan-Discontinue IVF d/t suspected dilutional anemia, continue JAMES protocol, tremors resolved. Patient progressing well for discharge to rehab facility. --- Hemodilution resolving, continue to follow --- Transaminases downtrending, asymptomatic, RUQ ultrasound negative --- Patient may continue to use OTC Pepcid (Famotidine) PRN Thrombocytopenia -Platelet count of 73. 199 at last admission. * Trend CBC --- Improvement 04/26 with removal of IVF Electrolyte derangement -K+ 3.2, magnesium 1.1. Both repleted, as above * Trend daily --- Hypokalemia 04/24, repleted PTSD/anxiety/depression -On duloxetine, mirtazapine, Vistaril for episodic anxiety. -Review of PDMP shows frequent filled prescriptions for chlordiazepoxide (10 mg and 25 mg, most recently January 2022), as well as phenobarbital (32.4 mg, most recently December 2021). -Is prescribed duloxetine, mirtazapine, gabapentin, prazosin, Vistaril. However, she admits to taking just Vistaril and gabapentin during 3-week drinking episode. -Tentatively scheduled to enter alcohol use disorder treatment facility at discharge. * Restarted duloxetine only. Held mirtazapine, Vistaril, prazosin. Will be receiving gabapentin as part of JAMES protocol. * Psychiatry consult for medical review, med rec. * Case management consult: DC planning re: inpatient psych vs alcohol rehab facility. --- Anticipate discharge to rehabilitation facility --- Patient should return to home use of Prazosin and Propranolol for help with sleep Sciatic back pain * Home cyclobenzaprine 10 mg p.o. twice daily as needed Code:Full code Dispo:[facility] FEN/GI:Regular, no IVF DVT Prophylaxis:Ambulation PT/OT:No Pending Studies at Discharge: No Stand-Alone Forms: [facility] Skilled Items Patient informed of condition?: Yes DNR: No Discharge Level of Care: Acute rehab Communicable Disease: No Discharge Prognosis: Stable Lines: None Urinary Catheter: No Medications and DC Order Prescriptions: Continued duloxetine 30 mg capsule,delayed release(DR/EC) 30 mg PO DAILY Rx Instructions: TOTAL DOSE 90 MG--TAKES WITH 60 MG CAP. thiamine HCl (vitamin B1) 100 mg tablet 100 mg PO DAILY mirtazapine 15 mg tablet 15 mg PO HS prazosin 1 mg capsule 3 mg PO HS chlordiazepoxide HCl 10 mg capsule 10 mg PO DIRECTED PRN (Reason: Anxiety) Linzess 145 mcg capsule 145 mcg PO DAILY cyclobenzaprine 10 mg tablet 10 mg PO BID PRN (Reason: muscle spasms) propranolol 10 mg tablet 5 mg PO [facility]HS folic acid 400 mcg tablet 400 mcg PO DAILY Qty: 30 0RF cyanocobalamin (vitamin B-12) 1,000 mcg capsule 1,000 mcg PO DAILY Qty: 30 0RF Discontinued gabapentin 300 mg capsule 300 mg PO TID hydroxyzine pamoate [Vistaril] 50 mg capsule 50 mg PO DAILY duloxetine 60 mg capsule,delayed release(DR/EC) 60 mg PO DAILY Rx Instructions: TOTAL DOSE 90 MG--TAKES WITH 30 MG CAP. Discharge Orders: Discharge Order (Routine); Ordered 04/26/22 Ordered By: Danilo Garcia Admission Data Admit Date/Time: 04/21/22 22:31 Attending Provider: Sandhya Douglass Admit Provider: Mariaa Casanova Primary Care Provider: Alicia Mcgee Other Providers: Nicolas Lao ; Corie March ; Petty Stewart ; Caleb Kamara Other Interventions: Discharge Summary Assessment (RN) Last Done: 04/26/22 13:22 Supervising Physician Co-Signing Physician Notes Examined patient independently and discussed plan, agree with documented history, physical, and plan as above
== END 2022-04-26 15:58 | disposition alcohol treatment (31) | DRG 897 ==
LOC: ED 20:37 → SUATTDRO 22:31 → 2W 22:31
DX: F43.10 Post-traumatic stress disorder, unspecified; R74.01 Elevation of levels of liver transaminase levels; E87.6 Hypokalemia; E83.42 Hypomagnesemia; D69.6 Thrombocytopenia, unspecified; F10.239 Alcohol dependence with withdrawal, unspecified; E87.1 Hypo-osmolality and hyponatremia

== ENCOUNTER 2022-05-22 20:27 | Inpatient (IN) ==
--- NOTE | 2022-05-22 21:24 | Emergency Department Note ---
History of Present Illness General Chief complaint: Alcohol Withdrawal Stated complaint: ALCOHOL WITHDRAW,BAD FALL Time Seen by Provider: 05/22/22 21:22 History of Present Illness Maximum Pain Intensity: 7 This 36-year-old female patient presents to the emergency department for evaluation of alcohol withdrawal as well as a fall. She states that her last drink of alcohol was this morning and normally drinks 1 pint of liquor per day. Denies any drug use. Denies any misuse of any of her medications. She was admitted to the hospital in March for alcohol withdrawal, but has relapsed. She states that she started drinking shortly after discharge from the hospital. She states that she was having a lot of nightmares and stress that caused her to start drinking again. The patient states that she fell down the steps 2 nights ago and hit her head. She states she fell down about 8 steps. Thinks that she may have had positive loss of consciousness. Has a bad headache that seems to be getting progressively worse. Has pain in the left side of the abdomen and the left side of her back as well. Rates her discomfort a 7/10. Denies any neck pain or central back pain. Had chest pain and SOB early this morning, but it resolved after a couple hours. Feels like her heart is beating faster than normal and that she is shaky from her withdrawal symptoms. No nausea or vomiting. Denies any urinary symptoms or problems with her BMs. Denies hematochezia, melena, hematuria, hemoptysis, or hematemesis. Home Medications Medication Instructions Recorded Confirmed Type prazosin 1 mg capsule 3 mg PO HS 06/08/21 05/23/22 History cyclobenzaprine 10 mg tablet 10 mg PO BID 12/09/21 05/23/22 History duloxetine 30 mg capsule,delayed 30 mg PO QAM 01/15/22 05/23/22 History release mirtazapine 15 mg tablet 15 mg PO HS 01/15/22 05/23/22 History linaclotide 145 mcg capsule 145 mcg PO DAILY 04/21/22 05/23/22 History (Xiomarazess) duloxetine 60 mg capsule,delayed 60 mg PO QAM 04/29/22 05/23/22 History release buspirone 7.5 mg tablet 7.5 mg PO BID 05/23/22 05/23/22 History gabapentin 300 mg capsule 300 mg PO TID 05/23/22 05/23/22 History prenat.vits,juana,jqi-ityq-qexav 1 tab PO DAILY 05/23/22 05/23/22 History Allergies Allergy/AdvReac Type Severity Reaction Status Date / Time lactose Allergy Intermediate Gastrointestinal Verified 05/23/22 00:50 Upset Past Med/Surg History Medical History (Updated 05/23/22 @ 05:07 by Jayna Norton PA-C) Acute alcohol intoxication Alcohol abuse Alcohol dependence Anxiety with depression Breast lump on left side at 11 o'clock position Hepatic steatosis History of alcohol withdrawal syndrome History of intussusception Hypokalemia Hypokalemia Hypomagnesemia Miscarriage Pancreatitis PTSD (post-traumatic stress disorder) Reflux gastritis Transaminitis Surgical History H/O foot surgery Previous section S/P dilation and curettage Family History Mother Depression Anxiety Brother Depression Anxiety Denies family history of Ovarian cancer Prostate cancer Diabetes Myocardial infarction Breast cancer Colorectal cancer Hypertension Social History Smoking Status: Never smoker Second Hand Exposure: No; Hx Alcohol Use: Yes Alcohol type: hard liquor Hx Substance Use: Yes Last Used Substance: Days (ago) Substance Use Type Other:: Pt states she has a medical marijuana card for oral drops Preferred Language: Nigerien Communication Ability: Effective Visual Impairment: No Limitations Hearing Ability: Normal Hydrostatic Tester Required: No Beliefs That Will Affect Care: None marital status: Current Living Situation: Parent Current Living Situation Comment: with parents and her son 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 Physical Exam Vital Signs Vital Signs - 24 hr 05/22/22 20:29 05/22/22 21:39 05/22/22 23:00 Temperature 37.3 C Temperature Source Temporal Artery Scan Pulse Rate 117 H 85 Pulse Rate from SpO2 Sensor Respiratory Rate 16 Respiratory Effort / Characteristics Non-Labored Spontaneous Respiratory Depth Normal Blood Pressure 145/97 H Blood Pressure Mean 113 Blood Pressure Position Sitting Pulse Oximetry 95 96 Oxygen Delivery Method Room Air Room Air Sepsis Recent Fever Within 48 Hours No Sepsis New/Unexplained Change in Mental Status N/A Sepsis Action Taken by Nursing No Action Required 05/22/22 22:50 05/22/22 23:30 05/23/22 00:00 Temperature Temperature Source Pulse Rate 90 94 H 90 Pulse Rate from SpO2 Sensor 90 Respiratory Rate 15 17 16 Respiratory Effort / Characteristics Respiratory Depth Blood Pressure 140/97 130/87 113/75 Blood Pressure Mean 111 101 87 Blood Pressure Position Pulse Oximetry 96 96 Oxygen Delivery Method Room Air Room Air Other Sepsis Recent Fever Within 48 Hours Sepsis New/Unexplained Change in Mental Status Sepsis Action Taken by Nursing VITALS: Vitals are noted on the nurse's note and reviewed by myself. GENERAL: The patient is visibly intoxicated, but in no acute distress, non- diaphoretic. SKIN: The skin was without obvious lacerations or abrasions. Capillary reflex less than 2 seconds. HEAD: Normocephalic. No scalp tenderness or step-offs felt. EARS: External auditory canals clear, tympanic membranes pearly malone without erythema or effusion bilaterally. No hemotympanum. No herron sign. No mastoid tenderness. EYES: The right pupil may be slightly larger than the left, but they are both round and reactive to light and accommodation. Conjunctivae without injection, sclerae without icterus. Extraocular movements intact. Mild lateral nystagmus from the intoxication. NOSE: Patent without discharge. No sinus tenderness. No septal hematoma or bleeding. FACE: No facial bone tenderness. Full range of motion of the jaw without tenderness. MOUTH: Mucous membranes moist. Pharynx without erythema or exudate. Uvula midline. Airway patent. Tongue does not deviate. NECK: Supple without nuchal rigidity. Cervical spine is nontender. Full range of motion of the neck without tenderness. HEART: Regular rate and rhythm without murmurs gallops or rubs. LUNGS: Clear to auscultation bilaterally without wheezes, rales or rhonchi. No retractions or accessory muscle use. CHEST: No chest wall tenderness. ABDOMEN: Positive bowel sounds x 4. Normal tympanic percussion. Soft, tender to palpation on the left side of the abdomen in the left flank, without masses or organomegaly. No guarding or rebound tenderness. MUSCULOSKELETAL: No tenderness of the thoracic or lumbar spine. No tenderness with pelvic rocking. There is ecchymosis to the left elbow, but no tenderness to palpation. Full range of motion without tenderness to palpation in all extremities. Gait was not tested due to her intoxication. Strength 5/5 throughout. Peripheral pulses 2+. NEURO: Patient was alert and oriented to person place and time although she is visibly intoxicated. Remainder of the neuro exam was unable to be performed due to her intoxication. Course Administered Medications Chlordiazepoxide HCl (Chlordiazepoxide Hcl 25 Mg Cap) 50 mg PO Q6H JOSE F; Taper Stop: 05/26/22 01:59 Last Admin: 05/23/22 03:04 Dose: Not Given Documented By: MITRA Magnesium Sulfate/Dextrose (Magnesium Sulfate / D5w) 1 gm in 100 mls @ 50 mls/hr IV Q2H JOSE F Stop: 05/23/22 05:59 Last Admin: 05/23/22 03:47 Dose: 50 mls/hr Documented By: Infusion: 05/23/22 03:47 Dose: 50 mls/hr Documented By: Admin: 05/23/22 01:47 Dose: 50 mls/hr Documented By: MITRA Potassium Chloride 20 meq/ (Lactated Ringer's) 1,010 mls @ 125 mls/hr IV .Q8H5M JOSE F Stop: 05/23/22 09:29 Last Admin: 05/23/22 03:02 Dose: 125 mls/hr Documented By: MITRA Lorazepam (Lorazepam 2 Mg/1 Ml Vial) 2 mg IV UD PRN; Protocol PRN Reason: EtOH Withdrawal AWSS Score 8,9 Stop: 06/22/22 01:28 Last Admin: 05/23/22 02:00 Dose: 2 mg Documented By: MITRA Discontinued Medications Multivitamins 10 ml/ Thiamine HCl 100 mg/ Folic Acid 1 mg/Sodium Chloride 1,011.2 mls @ 250 mls/hr IV .Q4H3M ONE Stop: 05/23/22 01:38 Last Infusion: 05/23/22 04:47 Dose: 0 mls/hr Documented By: Admin: 05/22/22 22:43 Dose: 250 mls/hr Documented By: VAUGHN Sodium Chloride (Nss 1000ml) 1,000 mls @ 999 mls/hr IV .Q1H1M ONE Stop: 05/22/22 22:36 Last Infusion: 05/22/22 23:46 Dose: 0 mls/hr Documented By: Admin: 05/22/22 22:45 Dose: 999 mls/hr Documented By: VAUGHN Ioversol (Optiray 350 100ml) 78 ml IV ONCE ONE Stop: 05/22/22 22:22 Last Admin: 05/22/22 22:21 Dose: 78 ml Documented By: RALPH Lorazepam (Lorazepam 2 Mg/1 Ml Vial) 1 mg IV NOW STA Stop: 05/22/22 21:49 Last Admin: 05/22/22 22:44 Dose: 1 mg Documented By: VAUGHN Lorazepam (Lorazepam 2 Mg/1 Ml Vial) 1 mg IV NOW STA Stop: 05/23/22 00:10 Last Admin: 05/23/22 00:20 Dose: 1 mg Documented By: VAUGHN Potassium Chloride (Potassium Chloride Crtab 20 Meq Tabcr) 40 meq PO NOW STA Stop: 05/22/22 21:56 Last Admin: 05/22/22 22:42 Dose: 40 meq Documented By: VAUGHN Potassium Chloride (Potassium Chloride Crtab 20 Meq Tabcr) 40 meq PO NOW STA Stop: 05/23/22 01:30 Last Admin: 05/23/22 01:47 Dose: 40 meq Documented By: MITRA Medical Decision Making Differential Diagnosis Differential diagnosis includes fracture, dislocation, subluxation, contusion, intra-abdominal injury, pneumothorax, intrathoracic injury, intracranial injury, neurologic, as well as other pathologies. Laboratory Data Attestation: I reviewed the patient's lab results. 05/22/22 20:40 05/22/22 20:40 Lab Results 05/22/22 05/22/22 05/22/22 Range/Units 20:40 20:40 20:40 WBC 8.76 (4.8-10.8) K/ul RBC 4.16 L (4.20-5.40) M/uL Hgb 13.5 (12.0-16.0) g/dl Hct 37.5 (37.0-47.0) % MCV 90.1 (80.0-100.0) fL MCH 32.5 (25.0-34.0) pg MCHC 36.0 (32.0-36.0) g/dL RDW Std Deviation 43.8 (36.4-46.3) fL RDW Coeff of Dallin 13.2 (11.5-14.5) % Plt Count 286 (130-400) K/uL MPV 10.2 (9.4-12.4) fL Immature Gran % (Auto) 0.2 % Neut % (Auto) 36.6 % Lymph % (Auto) 57.2 % [place] % (Auto) 4.3 % Eos % (Auto) 0.9 % Baso % (Auto) 0.8 % Neut # (Auto) 3.20 (1.40-6.50) K/uL Lymph # (Auto) 5.01 H (1.2-3.4) K/uL [place] # (Auto) 0.38 (0.11-0.59) K/uL Eos # (Auto) 0.08 (0-0.50) K/uL Baso # (Auto) 0.07 (0-0.2) K/uL Immature Gran # (Auto) 0.02 (0.01-0.20) K/uL PT (9.0-12.0) Seconds INR (0.9-1.1) APTT (21.0-31.0) Seconds PTT Ratio Sodium 144 (136-145) mmol/L Potassium 3.1 L (3.5-5.1) mmol/L Chloride 101 (98-107) mmol/L Carbon Dioxide 28 (21-32) mmol/L Anion Gap 15 H (3-11) BUN 10 (6-23) mg/dl Creatinine 0.72 (0.6-1.2) mg/dl Est Cr Clr Drug Dosing Not Reportable Est GFR ( Amer) 124.0 ml/min Est GFR (Non-Af Amer) 107.0 ml/min BUN/Creatinine Ratio 13.9 (10-20) Glucose 107 H (70-99(Fasting)) mg/dl Calcium 8.6 (8.5-10.1) mg/dl Magnesium (1.7-2.4) mg/dl Total Bilirubin 0.4 (0.2-1.0) mg/dl AST 82 H (13-39) U/L ALT 33 (7-52) U/L Alkaline Phosphatase 56 (34-104) U/L Ammonia (18-72) umol/L Troponin I High Sens (0-14) pg/ml Total Protein 6.9 (6.0-8.3) gm/dl Albumin 4.3 (3.4-5.0) gm/dl Globulin 2.6 (2.5-4.0) gm/dl Albumin/Globulin Ratio 1.7 (0.9-2) Lipase (11-82) U/L HCG, Qual (Negative) Urine Color Urine Appearance (Clear) Urine pH (4.5-7.5) Ur Specific [place] (1.000-1.030) Urine Protein (Negative) Urine Glucose (UA) (Negative) Urine Ketones (Negative) Urine Blood (Negative) Urine Nitrite (Negative) Urine Bilirubin (Negative) Urine Urobilinogen (Negative) Ur Leukocyte Esterase (Negative) Urine WBC (Auto) (0-5) /hpf Urine RBC (Auto) (0-4) /hpf U Hyaline Cast (Auto) (0-5) /lpf U Epithel Cells (Auto) (0-5) /lpf Urine Bacteria (Auto) (Negative) Urine Opiates Screen (Neg) Ur Methadone, Qual (Neg) Urine Barbiturates (Neg) Ur Phencyclidine (PCP) (Neg) U Amphetamin/Meth Scrn (Neg) MDMA (Ecstasy) Screen (Neg) U Benzodiazepines Scrn (Neg) Ur Cocaine Metabolite (Neg) U Marijuana (THC) Screen (Neg) Ethyl Alcohol mg/dL 503.7 H (<10.0) mg/dl SARS-CoV-2, RNA, NAAT (NEGATIVE) 05/22/22 05/22/22 05/22/22 Range/Units 21:55 21:55 21:55 WBC (4.8-10.8) K/ul RBC (4.20-5.40) M/uL Hgb (12.0-16.0) g/dl Hct (37.0-47.0) % MCV (80.0-100.0) fL MCH (25.0-34.0) pg MCHC (32.0-36.0) g/dL RDW Std Deviation (36.4-46.3) fL RDW Coeff of Dallin (11.5-14.5) % Plt Count (130-400) K/uL MPV (9.4-12.4) fL Immature Gran % (Auto) % Neut % (Auto) % Lymph % (Auto) % Polk % (Auto) % Eos % (Auto) % Baso % (Auto) % Neut # (Auto) (1.40-6.50) K/uL Lymph # (Auto) (1.2-3.4) K/uL [place] # (Auto) (0.11-0.59) K/uL Eos # (Auto) (0-0.50) K/uL Baso # (Auto) (0-0.2) K/uL Immature Gran # (Auto) (0.01-0.20) K/uL PT 10.4 (9.0-12.0) Seconds INR 1.0 (0.9-1.1) APTT 27.7 (21.0-31.0) Seconds PTT Ratio 1.0 Sodium (136-145) mmol/L Potassium (3.5-5.1) mmol/L Chloride (98-107) mmol/L Carbon Dioxide (21-32) mmol/L Anion Gap (3-11) BUN (6-23) mg/dl Creatinine (0.6-1.2) mg/dl Est Cr Clr Drug Dosing Est GFR ( Amer) ml/min Est GFR (Non-Af Amer) ml/min BUN/Creatinine Ratio (10-20) Glucose (70-99(Fasting)) mg/dl Calcium (8.5-10.1) mg/dl Magnesium 1.6 L (1.7-2.4) mg/dl Total Bilirubin (0.2-1.0) mg/dl AST (13-39) U/L ALT (7-52) U/L Alkaline Phosphatase (34-104) U/L Ammonia (18-72) umol/L Troponin I High Sens 2.9 (0-14) pg/ml Total Protein (6.0-8.3) gm/dl Albumin (3.4-5.0) gm/dl Globulin (2.5-4.0) gm/dl Albumin/Globulin Ratio (0.9-2) Lipase 61 (11-82) U/L HCG, Qual Negative (Negative) Urine Color Urine Appearance (Clear) Urine pH (4.5-7.5) Ur Specific [place] (1.000-1.030) Urine Protein (Negative) Urine Glucose (UA) (Negative) Urine Ketones (Negative) Urine Blood (Negative) Urine Nitrite (Negative) Urine Bilirubin (Negative) Urine Urobilinogen (Negative) Ur Leukocyte Esterase (Negative) Urine WBC (Auto) (0-5) /hpf Urine RBC (Auto) (0-4) /hpf U Hyaline Cast (Auto) (0-5) /lpf U Epithel Cells (Auto) (0-5) /lpf Urine Bacteria (Auto) (Negative) Urine Opiates Screen (Neg) Ur Methadone, Qual (Neg) Urine Barbiturates (Neg) Ur Phencyclidine (PCP) (Neg) U Amphetamin/Meth Scrn (Neg) MDMA (Ecstasy) Screen (Neg) U Benzodiazepines Scrn (Neg) Ur Cocaine Metabolite (Neg) U Marijuana (THC) Screen (Neg) Ethyl Alcohol mg/dL (<10.0) mg/dl SARS-CoV-2, RNA, NAAT (NEGATIVE) 05/22/22 05/22/22 05/22/22 Range/Units 22:05 22:05 22:10 WBC (4.8-10.8) K/ul RBC (4.20-5.40) M/uL Hgb (12.0-16.0) g/dl Hct (37.0-47.0) % MCV (80.0-100.0) fL MCH (25.0-34.0) pg MCHC (32.0-36.0) g/dL RDW Std Deviation (36.4-46.3) fL RDW Coeff of Dallin (11.5-14.5) % Plt Count (130-400) K/uL MPV (9.4-12.4) fL Immature Gran % (Auto) % Neut % (Auto) % Lymph % (Auto) % [place]k % (Auto) % Eos % (Auto) % Baso % (Auto) % Neut # (Auto) (1.40-6.50) K/uL Lymph # (Auto) (1.2-3.4) K/uL [place]k # (Auto) (0.11-0.59) K/uL Eos # (Auto) (0-0.50) K/uL Baso # (Auto) (0-0.2) K/uL Immature Gran # (Auto) (0.01-0.20) K/uL PT (9.0-12.0) Seconds INR (0.9-1.1) APTT (21.0-31.0) Seconds PTT Ratio Sodium (136-145) mmol/L Potassium (3.5-5.1) mmol/L Chloride (98-107) mmol/L Carbon Dioxide (21-32) mmol/L Anion Gap (3-11) BUN (6-23) mg/dl Creatinine (0.6-1.2) mg/dl Est Cr Clr Drug Dosing Est GFR ( Amer) ml/min Est GFR (Non-Af Amer) ml/min BUN/Creatinine Ratio (10-20) Glucose (70-99(Fasting)) mg/dl Calcium (8.5-10.1) mg/dl Magnesium (1.7-2.4) mg/dl Total Bilirubin (0.2-1.0) mg/dl AST (13-39) U/L ALT (7-52) U/L Alkaline Phosphatase (34-104) U/L Ammonia (18-72) umol/L Troponin I High Sens (0-14) pg/ml Total Protein (6.0-8.3) gm/dl Albumin (3.4-5.0) gm/dl Globulin (2.5-4.0) gm/dl Albumin/Globulin Ratio (0.9-2) Lipase (11-82) U/L HCG, Qual (Negative) Urine Color Yellow Urine Appearance Cloudy A (Clear) Urine pH 7.0 (4.5-7.5) Ur Specific [place] 1.010 (1.000-1.030) Urine Protein Negative (Negative) Urine Glucose (UA) Negative (Negative) Urine Ketones Negative (Negative) Urine Blood Trace H (Negative) Urine Nitrite Negative (Negative) Urine Bilirubin Negative (Negative) Urine Urobilinogen Negative (Negative) Ur Leukocyte Esterase 1+ H (Negative) Urine WBC (Auto) 10-30 H (0-5) /hpf Urine RBC (Auto) 0-4 (0-4) /hpf U Hyaline Cast (Auto) 1-5 (0-5) /lpf U Epithel Cells (Auto) >30 H (0-5) /lpf Urine Bacteria (Auto) 4+ H (Negative) Urine Opiates Screen Neg (Neg) Ur Methadone, Qual Neg (Neg) Urine Barbiturates Neg (Neg) Ur Phencyclidine (PCP) Neg (Neg) U Amphetamin/Meth Scrn Neg (Neg) MDMA (Ecstasy) Screen Neg (Neg) U Benzodiazepines Scrn Neg (Neg) Ur Cocaine Metabolite Neg (Neg) U Marijuana (THC) Screen Neg (Neg) Ethyl Alcohol mg/dL (<10.0) mg/dl SARS-CoV-2, RNA, NAAT NEGATIVE (NEGATIVE) 05/22/22 Range/Units 22:55 WBC (4.8-10.8) K/ul RBC (4.20-5.40) M/uL Hgb (12.0-16.0) g/dl Hct (37.0-47.0) % MCV (80.0-100.0) fL MCH (25.0-34.0) pg MCHC (32.0-36.0) g/dL RDW Std Deviation (36.4-46.3) fL RDW Coeff of Dallin (11.5-14.5) % Plt Count (130-400) K/uL MPV (9.4-12.4) fL Immature Gran % (Auto) % Neut % (Auto) % Lymph % (Auto) % [place]k % (Auto) % Eos % (Auto) % Baso % (Auto) % Neut # (Auto) (1.40-6.50) K/uL Lymph # (Auto) (1.2-3.4) K/uL [place]k # (Auto) (0.11-0.59) K/uL Eos # (Auto) (0-0.50) K/uL Baso # (Auto) (0-0.2) K/uL Immature Gran # (Auto) (0.01-0.20) K/uL PT (9.0-12.0) Seconds INR (0.9-1.1) APTT (21.0-31.0) Seconds PTT Ratio Sodium (136-145) mmol/L Potassium (3.5-5.1) mmol/L Chloride (98-107) mmol/L Carbon Dioxide (21-32) mmol/L Anion Gap (3-11) BUN (6-23) mg/dl Creatinine (0.6-1.2) mg/dl Est Cr Clr Drug Dosing Est GFR ( Amer) ml/min Est GFR (Non-Af Amer) ml/min BUN/Creatinine Ratio (10-20) Glucose (70-99(Fasting)) mg/dl Calcium (8.5-10.1) mg/dl Magnesium (1.7-2.4) mg/dl Total Bilirubin (0.2-1.0) mg/dl AST (13-39) U/L ALT (7-52) U/L Alkaline Phosphatase (34-104) U/L Ammonia 27.0 (18-72) umol/L Troponin I High Sens (0-14) pg/ml Total Protein (6.0-8.3) gm/dl Albumin (3.4-5.0) gm/dl Globulin (2.5-4.0) gm/dl Albumin/Globulin Ratio (0.9-2) Lipase (11-82) U/L HCG, Qual (Negative) Urine Color Urine Appearance (Clear) Urine pH (4.5-7.5) Ur Specific [place] (1.000-1.030) Urine Protein (Negative) Urine Glucose (UA) (Negative) Urine Ketones (Negative) Urine Blood (Negative) Urine Nitrite (Negative) Urine Bilirubin (Negative) Urine Urobilinogen (Negative) Ur Leukocyte Esterase (Negative) Urine WBC (Auto) (0-5) /hpf Urine RBC (Auto) (0-4) /hpf U Hyaline Cast (Auto) (0-5) /lpf U Epithel Cells (Auto) (0-5) /lpf Urine Bacteria (Auto) (Negative) Urine Opiates Screen (Neg) Ur Methadone, Qual (Neg) Urine Barbiturates (Neg) Ur Phencyclidine (PCP) (Neg) U Amphetamin/Meth Scrn (Neg) MDMA (Ecstasy) Screen (Neg) U Benzodiazepines Scrn (Neg) Ur Cocaine Metabolite (Neg) U Marijuana (THC) Screen (Neg) Ethyl Alcohol mg/dL (<10.0) mg/dl SARS-CoV-2, RNA, NAAT (NEGATIVE) Imaging Data Attestation: I personally reviewed and interpreted this imaging study as follows: My Impression: X-ray of the left elbow was interpreted by myself as negative for acute fracture or dislocation. Radiology report is still pending. Radiologist's Impression: Preliminary Findings Only See Final Report For Complete Findings CT HEAD: No ICH, mass effect or edema. No skull fracture. Radiologist: Lester Leggett MD Study ready at 22:38 and initial results transmitted at 23:10 Preliminary Findings Only See Final Report For Complete Findings CT C SPINE: No evidence of fracture or malalignment. Radiologist: Lester Leggett MD Study ready at 22:38 and initial results transmitted at 23:11 Preliminary Findings Only See Final Report For Complete Findings CT CHEST With Contrast: No pneumothorax. Lungs are clear. No pleural effusions. CV structures are unremarkable. Osseous structures are intact. Radiologist: Lester Leggett MD Study ready at 22:39 and initial results transmitted at 23:13 Preliminary Findings Only See Final Report For Complete Findings CT ABDOMEN & PELVIS With Contrast: Normal bowel Incidental note made of urinary bladder wall thickening which may reflect cystitis No acute fracture Incidental note made of bilateral chronic L5 spondylolysis and spondylolisthesis of L5 on S1 No free air or free fluid Radiologist: Lester Leggett MD Study ready at 22:39 and initial results transmitted at 23:16 MDM Narrative I examined the patient. An IV lock was placed and labs were drawn. The patient has a long history of alcohol abuse and was admitted in March for alcohol w ithdrawal, but the patient has started drinking again. The patient states that she is feels like she is starting to withdrawal from her last alcohol use this morning per history. She also admits to falling down about 8 steps 2 days ago and is having pain in her head and abdomen. She was given 1 L normal saline solution bolus. She was given a banana bag at 250 mL/h. She was given potassium chloride 40 mEq p.o. due to her hypokalemia. She was also given Ativan 1 mg IV for withdrawal symptoms pending the results of her trauma work- up. She was then given an additional 1 mg of Ativan IV after CT scans came back negative. Continuous registered nurse cardiac: Order was placed for continuous registered nurse cardiac. Patient was placed on the registered nurse cardiac and continuous pulse ox. Patient was noted to be in normal sinus rhythm at an initial rate of 120 bpm per my interpretation. EKG was interpreted by myself as normal sinus rhythm at 86 bpm with prolonged QT and nonspecific ST and T wave changes, but no significant change from her previous EKG and no acute ST or T wave changes. CBC without evidence for leukocytosis or anemia. Platelets normal. Coags normal. Potassium low at 3.1, anion gap elevated at 15, magnesium low at 1.6, AST elevated at 82. The remainder of the CMP was unremarkable. Lipase normal. Serum hCG negative. Troponin negative. Urinalysis without obvious evidence for UTI, but culture is pending. COVID-negative. Urine drug screen negative. Medical alcohol level significantly elevated at 503.7. X-ray of the left elbow was obtained due to the mild ecchymosis and was interpreted by myself is negative for acute fracture or dislocation. Radiology report is still pending. CT scans of the head, cervical spine, chest, abdomen, and pelvis with trauma prep were reviewed by myself and read by stat rad as above as negative for acute traumatic injury. The patient's alcohol level is significantly elevated at 503.7 and she is still awake, alert, and able to walk and talk without significant difficulty. The patient has a long history of alcohol abuse and has started to experience withdrawal symptoms. Therefore, the patient will be admitted to help assist with her withdrawal symptoms while becoming sober. The patient states that she does want to become sober and does want to be admitted at this time. The patient is also requesting to speak with psych after she is sober in regards to her PTSD. I spoke with the on-call hospitalist who agreed to admit the patient for further evaluation and treatment. Please refer to their dictation for further details. The patient's care was transferred in stable condition. Impression & Plan Alcoholic intoxication, Alcohol withdrawal syndrome, Fall, Hypomagnesemia, PTSD (post-traumatic stress disorder), Acute hypokalemia Discharge Plan Visit Data Chief Complaint: Alcohol Withdrawal Stated Complaint: ALCOHOL WITHDRAW,BAD FALL ED Provider: Pita Ulrich ED Midlevel Provider: Jayna Norton Discharge Problem: Alcoholic intoxication, Alcohol withdrawal syndrome, Fall, Hypomagnesemia, PTSD (post-traumatic stress disorder), Acute hypokalemia Patient Disposition: Admitted As Inpatient Condition: Good Discharge Instructions Interventions: ED Discharge Assessment Last Done: 05/23/22 01:11
[2022-05-22 21:26] LABS: Hematocrit (blood only) 37.5 % (37.0-47.0); Hemoglobin 13.5 g/dl (12.0-16.0); Mean Corpuscular Hemoglobin 32.5 pg (25.0-34.0); Mean Corpuscular Volume 90.1 fL (80.0-100.0); Mean Platelet Volume 10.2 fL (9.4-12.4); Platelet Count 286 K/uL (130-400); RDW Coefficient of Variation 13.2 % (11.5-14.5); RDW Standard Deviation 43.8 fL (36.4-46.3); Red Blood Count 4.16 M/uL (4.20-5.40); White Blood Count 8.76 K/ul (4.8-10.8)
[2022-05-22] MEDS ORDERED: SODIUM CHLORIDE 0.9% 1000ML 1,000 ML IV ONE (21:36)
[2022-05-22] MEDS ORDERED: MULTI-VITAMIN INFUSION 10 ML, THIAMINE HCL 100 MG, FOLIC ACID 1 MG in SODIUM CHLORIDE 0... IV ONE (21:36)
[2022-05-22 21:42] LABS: Alanine Aminotransferase 33 U/L (7-52); Albumin Globulin Ratio 1.7 (0.9-2); Albumin Level 4.3 gm/dl (3.4-5.0); Alkaline Phosphatase 56 U/L (34-104); Anion Gap 15 (3-11); Aspartate Aminotransferase 82 U/L (13-39); BUN Creatinine Ratio 13.9 (10-20); Bilirubin,Total 0.4 mg/dl (0.2-1.0); Blood Urea Nitrogen 10 mg/dl (6-23); Calcium 8.6 mg/dl (8.5-10.1); Carbon Dioxide 28 mmol/L (21-32); Chloride 101 mmol/L (98-107); Globulin 2.6 gm/dl (2.5-4.0); Glucose 107 mg/dl (70-99(Fasting)); Potassium 3.1 mmol/L (3.5-5.1); Sodium 144 mmol/L (136-145); Total Protein 6.9 gm/dl (6.0-8.3)
[2022-05-22] MEDS ORDERED: LORazepam 2 MG/1 ML VIAL IV STA (21:48)
[2022-05-22] MEDS ORDERED: POTASSIUM CHLORIDE CRTAB 20 MEQ TABCR PO STA (21:55)
[2022-05-22 22:18] LABS: Pregnancy Test, Serum Negative (Negative)
[2022-05-22 22:20] LABS: Partial Thromboplastin Time 27.7 Seconds (21.0-31.0); Prothrombin Time 10.4 Seconds (9.0-12.0)
[2022-05-22] MEDS ORDERED: OPTIRAY 350 100ml IV ONE (22:21)
[2022-05-22 22:47] LABS: Appearance Urine Cloudy (Clear); Bacteria Urine Automated 4+ (Negative); Bilirubin Urine Negative (Negative); Blood Urine Trace (Negative); Color Urine Yellow; Epithelial Cell Urine Auto >30 /lpf (0-5); Glucose Urine UA Negative (Negative); Ketones Urine Negative (Negative); Leukocyte Esterase Urine 1+ (Negative); Nitrite Urine Negative (Negative); Protein Urine Negative (Negative); RBC Urine Automated 0-4 /hpf (0-4); Urobilinogen Urine Negative (Negative)
[2022-05-22 22:48] LABS: Magnesium 1.6 mg/dl (1.7-2.4)
[2022-05-22 22:59] LABS: Troponin I High Sensitivity 2.9 pg/ml (0-14)
[2022-05-22 23:16] LABS: Amphetamines+Metham, Urine Neg (Neg); Barbiturates, Urine Neg (Neg); Benzodiazepine, Urine Neg (Neg); Cocaine, Urine Neg (Neg); MDMA (Ecstacy), Urine Neg (Neg); Methadone, Urine Neg (Neg); Opiate, Urine Neg (Neg); Phencyclidine, Urine Neg (Neg)
[2022-05-23] MEDS ORDERED: LORazepam 2 MG/1 ML VIAL IV STA (00:09)
[2022-05-23 00:35] LABS: Basophils # (auto) 0.07 K/uL (0-0.2); Basophils % (auto) 0.8 %; Eosinophils # (auto) 0.08 K/uL (0-0.50); Eosinophils % (auto) 0.9 %; Immature Granulocytes # (auto) 0.02 K/uL (0.01-0.20); Immature Granulocytes % (auto) 0.2 %; Lymphocytes # (auto) 5.01 K/uL (1.2-3.4); Lymphocytes % (auto) 57.2 %; Monocytes # (auto) 0.38 K/uL (0.11-0.59); Monocytes % (auto) 4.3 %; Neutrophils % (auto) 36.6 %
--- NOTE | 2022-05-23 00:42 | History & Physical Report ---
Date of Service May 23, 2022 Assessment & Plan (1) Acute alcohol intoxication: Plan: 36-year-old female with longstanding history of alcohol abuse presenting with acute alcohol intoxication, concerns for withdrawal. She reports drinking approximately 1 pint of liquor daily with last drink being 05/22/2019 in the morning. She does has history of withdrawal seizures. Alcohol level presently 5-3.2. Patient is reporting some mild tremors. She has been given Ativan 1 mg IV x2 doses in the ER as well as a 1 L banana bag. We will admit to PCU Librium taper Ativan as needed Continue thiamine and folic acid IV daily Psychiatry consultation appreciated. Patient is specifically requesting consultation to discuss her PTSD symptoms Should patient require high-dose Ativan or have difficult to control symptoms would consider treatment with IV Valium versus phenobarbital. Low threshold for ICU transfer (2) Depression: Plan: Patient with ongoing depression Continue buspirone 7.5 mg p.o. twice daily Continue duloxetine 90 mg p.o. daily Monitor QTc interval (3) Fall: Plan: Patient reports falling 2 days ago in the shower with trauma to her head and left arm. She reports since then she has been having some headache and dizziness and is worried about a concussion. CT of the head, cervical spine, chest abdomen and pelvis are unremarkable. X-rays of the left elbow and arm obtainedper my read do not appear to have any acute fracture or dislocation. Will await formal read in the morning. Neurologically intact. Neurochecks with GCS every 4 hours Fall precautions F/E/NLR +20 mEq potassium chloride at 125 mL/h x 1 L, potassium chloride 40 mEq p.o., repeat chemistry in the morning, magnesium = 1.6, will replete with 2 g IV, regular diet as tolerated Prophylaxislow risk for VTE Codefull Dispositionadmit to PCU History of Present Illness Chief Complaint: Alcohol intoxication, withdrawal symptoms Primary Care Provider: Alicia Mcgee MD Radha Boogie is a 36-year-old female with history of alcohol abuse with withdrawal seizures, PTSD, anxiety and depression presenting with alcohol withdrawal symptoms. 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 She reports falling in the shower 2 days ago and struck her left arm and head. She did report losing consciousness. Since then she has been having frontal headache, dizziness. She is concerned about a concussion. She reports feeling somewhat tremulous and shaky like she is going to go through alcohol withdrawal. Patient is requesting consultation with psychiatry during this visit to address her PTSD symptoms. In the ER she is afebrile, mildly tachycardic in 103 bpm otherwise hemodynamically stable. No respiratory distress. Saturating 96% on room air ER course: Ativan 1 mg IV x2 doses Normal saline x1 L Banana bag x1 L Potassium 40 mEq p.o. Allergies Allergy/AdvReac Type Severity Reaction Status Date / Time lactose Allergy Intermediate Gastrointestinal Verified 05/23/22 00:50 Upset Home Medications Medication Instructions Recorded Confirmed Type prazosin 1 mg capsule 3 mg PO HS 06/08/21 05/23/22 History cyclobenzaprine 10 mg tablet 10 mg PO BID 12/09/21 05/23/22 History duloxetine 30 mg capsule,delayed 30 mg PO QAM 01/15/22 05/23/22 History release mirtazapine 15 mg tablet 15 mg PO HS 01/15/22 05/23/22 History linaclotide 145 mcg capsule 145 mcg PO DAILY 04/21/22 05/23/22 History (Linzess) duloxetine 60 mg capsule,delayed 60 mg PO QAM 04/29/22 05/23/22 History release buspirone 7.5 mg tablet 7.5 mg PO BID 05/23/22 05/23/22 History gabapentin 300 mg capsule 300 mg PO TID 05/23/22 05/23/22 History prenat.vits,juana,mmy-semc-dthfn 1 tab PO DAILY 05/23/22 05/23/22 History Past Med/Surg History Medical History (Updated 05/23/22 @ 01:16 by Malou Bojorquez DO) Acute alcohol intoxication Alcohol abuse Alcohol dependence Anxiety with depression Breast lump on left side at 11 o'clock position Hepatic steatosis History of alcohol withdrawal syndrome History of intussusception Hypokalemia Hypokalemia Hypomagnesemia Miscarriage Pancreatitis PTSD (post-traumatic stress disorder) Reflux gastritis Transaminitis Surgical History H/O foot surgery Previous section S/P dilation and curettage Family History Mother Depression Anxiety Brother Depression Anxiety Denies family history of Ovarian cancer Prostate cancer Diabetes Myocardial infarction Breast cancer Colorectal cancer Hypertension Social History Smoking Status: Never smoker Second Hand Exposure: No; Hx Alcohol Use: Yes Alcohol type: hard liquor Hx Substance Use: No Preferred Language: Yoruba Communication Ability: Effective Visual Impairment: No Limitations Hearing Ability: Normal Shovel Oiler Required: No Beliefs That Will Affect Care: None marital status: Current Living Situation: Parent Current Living Situation Comment: Lives with parents and son 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[employer] How many Children do You have: 1 Feels Safe at Home: Yes Childhood Exposure to Second-Hand Smoke: No Dental Care, Regularly: Yes Physical Activity Frequency: 5-6 Times per Week Seatbelt Use: always Sunscreen Use: Yes Assistive Devices: None Review of Systems Review of Systems: All systems reviewed & are unremarkable except as noted in HPI & below Physical Exam Physical Exam: General: patient resting comfortably, NAD, non-toxic in appearance, AA&O x 4, visibly intoxicated, slow to answer questions Skin: warm, dry, intact, scattered bruising on bilateral upper extremities HEENT: NC/AT, PERRL, EOMI, anicteric sclera, conjunctiva without injection, external ear normal to inspection and nontender, nares patent, moist mucus membranes, dentition intact, no oropharyngeal lesions, neck supple, trachea midline, no LAD, no thyromegaly, no JVD Heart: +S1/S2, regular, tachycardic, no m/r/g Lungs: equal air entry bilaterally, no rales/rhonchi/wheezes Abd: +BS, soft, NT/ND, no masses/organomegaly/ascites Ext: warm, 2+ pulses in UE/LE bilaterally, no clubbing/cyanosis or edema Neuro: nonfocal, patient AA&O x 4, speech intact, no facial droop, moving all extremities on command with equal strength 5/5, no obvious tremor Results & Data Results & Data ([facility]) Vital Signs (Past 12 Hours) Vital Signs Temp Pulse Resp BP Pulse Ox O2 Del Method 05/22/22 23:30 94 H 17 130/87 96 Room Air, Other 05/22/22 22:50 90 15 140/97 96 Room Air 05/22/22 23:00 96 Room Air 05/22/22 21:39 85 05/22/22 20:29 37.3 C 117 H 16 145/97 H 95 Room Air Laboratory Results Laboratory Results WBC 8.76 K/ul (4.8-10.8) 05/22/22 20:40 RBC 4.16 M/uL (4.20-5.40) L 05/22/22 20:40 Hgb 13.5 g/dl (12.0-16.0) 05/22/22 20:40 Hct 37.5 % (37.0-47.0) 05/22/22 20:40 MCV 90.1 fL (80.0-100.0) 05/22/22 20:40 MCH 32.5 pg (25.0-34.0) 05/22/22 20:40 MCHC 36.0 g/dL (32.0-36.0) 05/22/22 20:40 RDW Std Deviation 43.8 fL (36.4-46.3) 05/22/22 20:40 RDW Coeff of [place] 13.2 % (11.5-14.5) 05/22/22 20:40 Plt Count 286 K/uL (130-400) 05/22/22 20:40 MPV 10.2 fL (9.4-12.4) 05/22/22 20:40 Immature Gran % (Auto) 0.2 % 05/22/22 20:40 Neut % (Auto) 36.6 % 05/22/22 20:40 Lymph % (Auto) 57.2 % 05/22/22 20:40 [place] % (Auto) 4.3 % 05/22/22 20:40 Eos % (Auto) 0.9 % 05/22/22 20:40 Baso % (Auto) 0.8 % 05/22/22 20:40 Neut # (Auto) 3.20 K/uL (1.40-6.50) 05/22/22 20:40 Lymph # (Auto) 5.01 K/uL (1.2-3.4) H 05/22/22 20:40 [place] # (Auto) 0.38 K/uL (0.11-0.59) 05/22/22 20:40 Eos # (Auto) 0.08 K/uL (0-0.50) 05/22/22 20:40 Baso # (Auto) 0.07 K/uL (0-0.2) 05/22/22 20:40 Immature Gran # (Auto) 0.02 K/uL (0.01-0.20) 05/22/22 20:40 PT 10.4 Seconds (9.0-12.0) 05/22/22 21:55 INR 1.0 (0.9-1.1) 05/22/22 21:55 APTT 27.7 Seconds (21.0-31.0) 05/22/22 21:55 PTT Ratio 1.0 05/22/22 21:55 Sodium 144 mmol/L (136-145) 05/22/22 20:40 Potassium 3.1 mmol/L (3.5-5.1) L 05/22/22 20:40 Chloride 101 mmol/L (98-107) 05/22/22 20:40 Carbon Dioxide 28 mmol/L (21-32) 05/22/22 20:40 Anion Gap 15 (3-11) H 05/22/22 20:40 BUN 10 mg/dl (6-23) 05/22/22 20:40 Creatinine 0.72 mg/dl (0.6-1.2) 05/22/22 20:40 Est Cr Clr Drug Dosing Not Reportable 05/22/22 20:40 Est GFR ( Amer) 124.0 ml/min 05/22/22 20:40 Est GFR (Non-Af Amer) 107.0 ml/min 05/22/22 20:40 BUN/Creatinine Ratio 13.9 (10-20) 05/22/22 20:40 Glucose 107 mg/dl (70-99(Fasting)) H 05/22/22 20:40 Calcium 8.6 mg/dl (8.5-10.1) 05/22/22 20:40 Magnesium 1.6 mg/dl (1.7-2.4) L 05/22/22 21:55 Total Bilirubin 0.4 mg/dl (0.2-1.0) 05/22/22 20:40 AST 82 U/L (13-39) H 05/22/22 20:40 ALT 33 U/L (7-52) 05/22/22 20:40 Alkaline Phosphatase 56 U/L (34-104) 05/22/22 20:40 Ammonia 27.0 umol/L (18-72) 05/22/22 22:55 Troponin I High Sens 2.9 pg/ml (0-14) 05/22/22 21:55 Total Protein 6.9 gm/dl (6.0-8.3) 05/22/22 20:40 Albumin 4.3 gm/dl (3.4-5.0) 05/22/22 20:40 Globulin 2.6 gm/dl (2.5-4.0) 05/22/22 20:40 Albumin/Globulin Ratio 1.7 (0.9-2) 05/22/22 20:40 Lipase 61 U/L (11-82) 05/22/22 21:55 HCG, Qual Negative (Negative) 05/22/22 21:55 Urine Color Yellow 05/22/22 22:05 Urine Appearance Cloudy (Clear) A 05/22/22 22:05 Urine pH 7.0 (4.5-7.5) 05/22/22 22:05 Ur Specific [place] 1.010 (1.000-1.030) 05/22/22 22:05 Urine Protein Negative (Negative) 05/22/22 22:05 Urine Glucose (UA) Negative (Negative) 05/22/22 22:05 Urine Ketones Negative (Negative) 05/22/22 22:05 Urine Blood Trace (Negative) H 05/22/22 22:05 Urine Nitrite Negative (Negative) 05/22/22 22:05 Urine Bilirubin Negative (Negative) 05/22/22 22:05 Urine Urobilinogen Negative (Negative) 05/22/22 22:05 Ur Leukocyte Esterase 1+ (Negative) H 05/22/22 22:05 Urine WBC (Auto) 10-30 /hpf (0-5) H 05/22/22 22:05 Urine RBC (Auto) 0-4 /hpf (0-4) 05/22/22 22:05 U Hyaline Cast (Auto) 1-5 /lpf (0-5) 05/22/22 22:05 U Epithel Cells (Auto) >30 /lpf (0-5) H 05/22/22 22:05 Urine Bacteria (Auto) 4+ (Negative) H 05/22/22 22:05 Urine Opiates Screen Neg (Neg) 05/22/22 22:05 Ur Methadone, Qual Neg (Neg) 05/22/22 22:05 Urine Barbiturates Neg (Neg) 05/22/22 22:05 Ur Phencyclidine (PCP) Neg (Neg) 05/22/22 22:05 U Amphetamin/Meth Scrn Neg (Neg) 05/22/22 22:05 MDMA (Ecstasy) Screen Neg (Neg) 05/22/22 22:05 U Benzodiazepines Scrn Neg (Neg) 05/22/22 22:05 Ur Cocaine Metabolite Neg (Neg) 05/22/22 22:05 U Marijuana (THC) Screen Neg (Neg) 05/22/22 22:05 Ethyl Alcohol mg/dL 503.7 mg/dl (<10.0) H 05/22/22 20:40 SARS-CoV-2, RNA, NAAT NEGATIVE (NEGATIVE) 05/22/22 22:10 Diagnostic Findings Elbow x-rayby my interpretation, no acute fracture dislocation Humerus x-rayby my interpretation no acute fracture CT chest with contrastPer stat rad: No pneumothorax. Lungs are clear. No pleural effusions. CV structures are unremarkable. [place] structures are intact CT cervical spineper stat read: No evidence of fracture or malalignment CT headper stat read: No ICH, mass effect or edema. No skull fracture CT abdomen and pelvis with contrastPer stat read: Normal bowel. Incidental note made of urinary bladder wall thickening which may reflect cystitis. No acute fracture. Incidental note made of bilateral chronic L5 spondylolisthesis of L5 on S1 and spondylosis. No free air or free fluid PG Care Time/CCT Total # of Minutes Spent Total Time Spent with Patient: Total time spent is greater than 50% in coordination of care (as documented) at patient's floor/unit and/or counseling patient: Coding Level of Care Code 62461 INT INP/OBS CARE 2/55MIN Diagnoses Acute alcohol intoxication F10.920 Complication of substance-induced condition: uncomplicated Depression F32.A Fall W19.XXXA (1) Acute alcohol intoxication Complication of substance-induced condition: uncomplicated Qualified Code(s): F10.920 - Alcohol use, unspecified with intoxication, uncomplicated
[2022-05-23] MEDS ORDERED: Ativan IV Alcohol Withdrawal--Active Protocol IV PRN (01:29)
[2022-05-23] MEDS ORDERED: POTASSIUM CHLORIDE CRTAB 20 MEQ TABCR PO STA (01:29)
[2022-05-23] MEDS ORDERED: chlordiazePOXIDE ALCOHOL WITHDRAWL 50MG PO STA (01:29)
[2022-05-23] MEDS ORDERED: LORazepam 2 MG/1 ML VIAL IV PRN ×2 (01:29)
[2022-05-23] MEDS ORDERED: CYCLOBENZAPRINE HCL 10 MG TAB PO PRN (01:29)
[2022-05-23] MEDS ORDERED: POTASSIUM CHLORIDE 20 MEQ in LACTATED RINGER'S 1,000 ML IV SCH (01:29)
[2022-05-23] MEDS: MAGNESIUM SULFATE / D5W 1 GM/100 ML BAG IV SCH ×2 (01:47→03:47)
[2022-05-23] MEDS: LORazepam 2 MG/1 ML VIAL IV PRN ×2 (02:00→21:14)
[2022-05-23] MEDS: chlordiazePOXIDE HCl 25 MG CAP PO SCH ×2 (03:04→07:50)
--- NOTE | 2022-05-23 07:17 | CT Scan Report ---
HEAD CT NONCONTRAST CT DOSE: HISTORY: fall, headache TECHNIQUE: Multiaxial CT images of the head were performed without the use of intravenous contrast. A utomated exposure control was utilized for this study. A dose lowering technique was utilized adheri ng to the principles of ALARA. Comparison: None. Findings: The paranasal sinuses and mastoid air cells are clear. The calvarium and skull base are int act. The ventricles and sulci are within normal limits. There is no mass, hematoma, midline shift, or acute infarct. Impression: No acute intracranial abnormality. ACT 112: Negative or not required by law. Electronically signed by: Jone Dupont M.D. 05/23/2022 7:15 AM
--- NOTE | 2022-05-23 07:39 | CT Scan Report ---
CHEST CT WITH CONTRAST CT DOSE: 1870.25 mGy.cm HISTORY: fall, ETOH intoxication TECHNIQUE: Multiaxial CT images of the chest were performed following the intravenous administration of contrast. A dose lowering technique was utilized adhering to the principles of ALARA. COMPARISON: Chest CTA 03/23/2022. FINDINGS: No acute fractures within the chest. No mediastinal hematoma or lymphadenopathy. The heart is normal in size. No pleural or pericardial effusions. The abdominal structures will be reported on the same day abdomen and pelvis CT. Normal esophagus. Normal caliber thoracic aorta with no evidence for a dissection. The main pulmonary arteries are patent. No pneumothorax. The visualized lungs are c lear. The lung bases are better appreciated on the same day abdomen and pelvis CT. IMPRESSION: No acute traumatic process within the chest. ACT 112: Negative or not required by law. Electronically signed by: Jone Dupont M.D. 05/23/2022 7:37 AM
[2022-05-23] MEDS: THIAMINE HCL 100 MG in SYRINGE 9 ML IV SCH (07:47)
[2022-05-23] MEDS: FOLIC ACID 1 MG in SYRINGE 9.8 ML IV SCH (07:47)
[2022-05-23] MEDS: DULoxetine HCL 60 MG CAP PO SCH (07:47)
[2022-05-23] MEDS: busPIRone 7.5 MG TAB PO SCH ×2 (07:47→21:15)
[2022-05-23] MEDS: LINACLOTIDE 145 MCG CAPSULE PO SCH (07:47)
--- NOTE | 2022-05-23 07:50 | CT Scan Report ---
CT abd pelvis IV con only CLINICAL HISTORY: fall, left sided abdominal pain TECHNIQUE: Helical axial images of the abdomen and pelvis were obtained and displayed. Automated dose lowering techniques and/or adjustment according to patient size were utilized for this exam. This e xam was performed with intravenous contrast. COMPARISON: Comparison is made to CT abdomen pelvis 12/09/2021 FINDINGS: Lower chest: No acute abnormality. Liver: Unremarkable. No focal lesions are seen. Gallbladder and biliary tree: No calcified gallstones. Normal caliber wall. No intra- or extrahepatic biliary ductal dilation. Pancreas: Unremarkable, no focal lesions. Spleen: Unremarkable. Adrenals: Unremarkable. Kidneys and ureters: Unremarkable. Bladder: Limited evaluation due to underdistention. The bladder wall appears mildly thickened. Reproductive organs: Unremarkable. Bowel: The appendix is normal. Lymph nodes Retroperitoneal: Unremarkable. Pelvic: Unremarkable. Mesenteric: Unremarkable. Peritoneum: Normal. Vessels: Unremarkable. Abdominal wall: Unremarkable. Bones: Unremarkable. IMPRESSION: Diffuse thickening of the bladder wall is nonspecific and may be related to underdistention, however correlation with urinalysis is recommended to exclude UTI. ACT 112: Negative or not required by law. Electronically signed by: Lester Johnson M.D. 05/23/2022 7:49 AM
--- NOTE | 2022-05-23 07:57 | CT Scan Report ---
CT cervical spine wo con CLINICAL HISTORY: fall, ETOH intoxication TECHNIQUE: Multidetector row helical CT of the cervical spine was performed without administration of intravenous contrast. Coronal and sagittal reformations were obtained. Automated dose lowering techn iques and/or adjustment according to patient size were utilized for this exam. Comparison: None available at the time of this dictation. FINDINGS: No acute fractures or subluxations are identified. The vertebral body heights and disk spaces are wel l maintained. The alignment is normal. Soft tissues are unremarkable. IMPRESSION: No evidence of acute bony injury. ACT 112: Negative or not required by law. Electronically signed by: Lester Johnson M.D. 05/23/2022 7:55 AM
--- NOTE | 2022-05-23 08:42 | XRay Report ---
XR humerus LT 2V, XR elbow LT min 3V routine CLINICAL HISTORY: fall TECHNIQUE: 2 radiographic views of the left humerus and 3 views of the left elbow were obtained. Comparison: None available at the time of this dictation. FINDINGS: There is no evidence for fracture, subluxation or dislocation. The visualized portion of the shoulder and elbow joints are unremarkable. There is normal bone mineralization. The overlying soft tissues a re unremarkable. IMPRESSION: No acute osseous injury ACT 112: Negative or not required by law. Electronically signed by: Lester Johnosn M.D. 05/23/2022 8:40 AM
[2022-05-23] MEDS ORDERED: PROPRANOLOL HCL 10 MG TAB PO SCH (09:00)
[2022-05-23] MEDS ORDERED: DULoxetine HCL 30 MG CAP PO SCH (09:00)
[2022-05-23] MEDS: NSS + 20MEQ KCL 20 MEQ/1,000 ML BAG IV SCH ×2 (10:45→22:48)
--- NOTE | 2022-05-23 11:21 | Electrocardiogram Report ---
Test Reason : Blood Pressure : / mmHG Vent. Rate : 086 BPM Atrial Rate : 086 BPM P-R Int : 126 ms QRS Dur : 086 ms QT Int : 400 ms P-R-T Axes : 045 028 029 degrees QTc Int : 479 ms Normal sinus rhythm Nonspecific ST and T wave abnormality Prolonged QT Abnormal ECG When compared with ECG of 22-APR-2022 07:38, No significant change was found Confirmed by Mike Brown ([id number]) on 05/23/2022 11:21:14 AM Referred By: REFERRED SELF Confirmed By:Oren Brown
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
--- NOTE | 2022-05-23 13:38 | Hospitalist Progress Note ---
Date of Service May 23, 2022 Assessment & Plan (1) Acute alcohol intoxication: Plan: Currently stable. Continue Librium with eventual outpatient tapering dose. P ropranolol switched to metoprolol. Supportive care. Vitamin supplementation. IV fluids taper down. (2) Depression: Plan: She also has PTSD. Appreciate psychiatry consultation and recommendations. Medical management. Supportive care (3) Fall: Plan: Patient reports falling 2 days ago in the shower with trauma to her head and left arm. She reports since then she has been having some headache and dizziness and is worried about a concussion. CT of the head, cervical spine, chest abdomen and pelvis are unremarkable. X-rays of the left elbow and arm negative for fracture. Pain control measures. Plan Anticipate eventual discharge to home Admission and Anticipated Discharge Date Admission Date: May 23, 2022 Subjective Alert and oriented. No active withdrawal symptoms. Propranolol switched to metoprolol. Librium dosage has been adjusted. IV fluids taper down. She has been seen by psychiatry. She is medically stable and hopefully can be discharged home soon. Potassium replacement continues Review of Systems Review of Systems: Constitutional-no fever or chills ENT-no blurred vision, no double vision, no epistaxis, no sore throat Respiratory-no cough, no wheezing, no shortness of breath Cardiac-no palpitations, no chest pain, no syncope GI-no nausea, vomiting, diarrhea, melena, hematochezia -no urinary retention, no urinary incontinence, no dysuria, no hematuria Musculoskeletal-no joint pain, no muscle tenderness Skin-no bruising, no rashes, no pruritus Neuro-no isolated weakness, no paresthesia, no weakness Psych-somewhat depressed. Occasional anxiety Physical Exam Physical Exam: General-alert and oriented x3, no fevers, no chills HEENT-head atraumatic and normocephalic, pupils equal and reactive to light, extraocular muscles intact Neck-no lymphadenopathy or thyromegaly, trachea midline Chest-clear to auscultation percussion. No rales wheezing or rhonchi Cardiac-regular rate and rhythm, normal S1 and S2 Abdomen-normal bowel sounds, nontender, no hepatosplenomegaly Extremities-no cyanosis, clubbing, or edema Neuro-cranial nerves II through XII intact, motor and sensory function within normal limits, strength symmetrical , no focal deficits Psych-depressed affect Results & Data Results & Data ([facility]) Vital Signs (Past 12 Hours) Vital Signs Temp Pulse Pulse Resp BP BP Pulse Ox 05/23/22 08:00 86 05/23/22 11:04 36.7 C 91 H 16 119/82 05/23/22 07:26 36.6 C 92 H 17 114/78 98 05/23/22 01:45 36.4 C L 96 H 20 121/84 98 05/23/22 01:36 125 H 05/23/22 01:38 36.4 C L 20 121/84 98 O2 Del Method 05/23/22 08:00 05/23/22 11:04 Room Air 05/23/22 07:26 Room Air 05/23/22 01:45 Room Air 05/23/22 01:36 05/23/22 01:38 Room Air Laboratory Results 05/22/22 20:40 05/22/22 20:40 PG Care Time/CCT Total # of Minutes Spent Total Time Spent with Patient: Total time spent is greater than 50% in coordination of care (as documented) at patient's floor/unit and/or counseling patient: Coding Level of Care Code 66179 SUB INP/OBS CARE 3/50MIN Diagnoses Acute alcohol intoxication F10.920 Complication of substance-induced condition: uncomplicated Depression F32.A Fall W19.XXXA Encounter type: initial encounter (1) Acute alcohol intoxication Complication of substance-induced condition: uncomplicated Qualified Code(s): F10.920 - Alcohol use, unspecified with intoxication, uncomplicated (3) Fall Encounter type: initial encounter Qualified Code(s): W19.XXXA - Unspecified fall, initial encounter
[2022-05-23] MEDS: METOPROLOL TARTRATE 25 MG TAB PO SCH (21:15)
[2022-05-24 08:51] LABS: Albumin Level 3.5 gm/dl (3.4-5.0); BUN Creatinine Ratio 13.5 (10-20); Bilirubin Direct 0.2 mg/dl (0-0.2); Bilirubin,Total 1.3 mg/dl (0.2-1.0); Calcium 7.9 mg/dl (8.5-10.1); Creatinine Clr Calc Pharmacy 151.7 ml/min; Est GFR (African American) 141.5 ml/min; Est GFR (Non-African American) 122.1 ml/min; Hematocrit (blood only) 32.1 % (37.0-47.0); Hemoglobin 11.3 g/dl (12.0-16.0); Mean Corpuscular Hemoglobin 32.4 pg (25.0-34.0); Mean Corpuscular Hgb Conc 35.2 g/dL (32.0-36.0); Mean Platelet Volume 10.6 fL (9.4-12.4); Platelet Count 167 K/uL (130-400); RDW Coefficient of Variation 12.8 % (11.5-14.5); RDW Standard Deviation 42.9 fL (36.4-46.3); Red Blood Count 3.49 M/uL (4.20-5.40); Total Protein 5.6 gm/dl (6.0-8.3); White Blood Count 4.73 K/ul (4.8-10.8)
[2022-05-24] MEDS: THIAMINE HCL 100 MG in SYRINGE 9 ML IV SCH (09:32)
[2022-05-24] MEDS: METOPROLOL TARTRATE 25 MG TAB PO SCH (09:32)
[2022-05-24] MEDS: DULoxetine HCL 60 MG CAP PO SCH (09:32)
[2022-05-24] MEDS: busPIRone 7.5 MG TAB PO SCH (09:32)
[2022-05-24] MEDS: LINACLOTIDE 145 MCG CAPSULE PO SCH (09:32)
[2022-05-24] MEDS: FOLIC ACID 1 MG in SYRINGE 9.8 ML IV SCH (09:33)
[2022-05-24] MEDS: NSS + 20MEQ KCL 20 MEQ/1,000 ML BAG IV SCH (10:57)
--- NOTE | 2022-05-24 11:53 | Discharge Summary ---
Date of Service May 24, 2022 Admission HPI Per Admitting Provider Radha Boogie is a 36-year-old female with history of alcohol abuse with withdrawal seizures, PTSD, anxiety and depression presenting with alcohol withdrawal symptoms. 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 She reports falling in the shower 2 days ago and struck her left arm and head. She did report losing consciousness. Since then she has been having frontal headache, dizziness. She is concerned about a concussion. She reports feeling somewhat tremulous and shaky like she is going to go through alcohol withdrawal. Patient is requesting consultation with psychiatry during this visit to address her PTSD symptoms. In the ER she is afebrile, mildly tachycardic in 103 bpm otherwise hemodynamically stable. No respiratory distress. Saturating 96% on room air ER course: Ativan 1 mg IV x2 doses Normal saline x1 L Banana bag x1 L Potassium 40 mEq p.o. Principal Diagnosis Acute alcohol intoxication and subsequent alcohol withdrawal, mechanical fall, hypokalemia Discharge Exam General-alert and oriented x3, no fevers, no chills HEENT-head atraumatic and normocephalic, pupils equal and reactive to light, extraocular muscles intact Neck-no lymphadenopathy or thyromegaly, trachea midline Chest-clear to auscultation percussion. No rales wheezing or rhonchi Cardiac-regular rate and rhythm, normal S1 and S2 Abdomen-normal bowel sounds, nontender, no hepatosplenomegaly Extremities-no cyanosis, clubbing, or edema Neuro-cranial nerves II through XII intact, motor and sensory function within normal limits, strength symmetrical , no focal deficits Psych-depressed affect Discharge Data Allergies Allergy/AdvReac Type Severity Reaction Status Date / Time lactose Allergy Intermediate Gastrointestinal Verified 05/23/22 00:50 Upset Consultations 05/23/22 01:05 ED Decision to Admit Stat 05/23/22 01:29 Consult Psychiatry Routine Ordered Studies 05/22/22 21:37 CT abd pelvis IV con only Stat CT head/brain wo con Stat 05/22/22 21:46 CT chest diagnostic w con Stat CT neck [CT cervical spine wo con] Stat Hospital Course (1) Acute alcohol intoxication: Currently stable. Treated with Librium while hospitalized. Librium taper at discharge. Propranolol switched to metoprolol. Supportive care. Vitamin supplementation. IV fluids were administered while hospitalized (2) Depression: She also has PTSD. Appreciate psychiatry consultation and recommendations. Medical management. Supportive care (3) Fall: Patient reports falling 2 days ago in the shower with trauma to her head and left arm. She reports since then she has been having some headache and dizziness and is worried about a concussion. CT of the head, cervical spine, chest abdomen and pelvis are unremarkable. X-rays of the left elbow and arm negative for fracture. Pain control measures. Plan Discharge to home todayMay 24 Total Time Total Time Spent Total Time Spent (In Minutes): 35 minutes Discharge Plan Discharge Items Patient Disposition: Home - Self-Care Reason For Visit: ETOH WITHDRAWL Discharge Diagnosis: Acute alcohol intoxication, subsequent alcohol withdraw, hypokalemia, mechanical fall Condition on Discharge: Good Activity: Resume your previous activity Non-emergency contact: Primary Care Provider Call non-emergency contact if: you have any medication questions Follow-up/Referrals: Alicia Mcgee MD [Primary Care Provider] - Diet: Regular Addtl Attending Provider Instructions: Take the Librium in a tapering dose fashion until gone Pending Studies at Discharge: No Stand-Alone Forms: My [facility] [email or web address], Smoking Cessation Medications and DC Order Prescriptions: New chlordiazepoxide HCl 10 mg Capsule See Rx Instructions .ROUTE .COMPLEX Qty: 12 0RF Rx Instructions: 10 mg orally 3 times a day for 2 days, then 10 mg twice a day for 2 days, then 10 mg daily for 2 days, then stop metoprolol tartrate 25 mg Tablet 25 mg PO BID Qty: 60 0RF Continued duloxetine 60 mg capsule,delayed release(DR/EC) 60 mg PO QAM duloxetine 30 mg capsule,delayed release(DR/EC) 30 mg PO QAM Rx Instructions: TOTAL DOSE 90 MG--TAKES WITH 60 MG CAP. mirtazapine 15 mg tablet 15 mg PO HS prazosin 1 mg capsule 3 mg PO HS Linzess 145 mcg capsule 145 mcg PO DAILY buspirone 7.5 mg tablet 7.5 mg PO BID gabapentin 300 mg capsule 300 mg PO TID Vitamin Tablet 1 tab PO DAILY cyclobenzaprine 10 mg tablet 10 mg PO BID Discharge Orders: Discharge Order (Routine); Ordered 05/24/22 Ordered By: Uday Tamayo Admission Data Admit Date/Time: 05/23/22 00:41 Attending Provider: Uday Tamayo Admit Provider: Malou Bojorquez Primary Care Provider: Alicia Mcgee Other Providers: Corie March ; Petty Stewart ; Caleb Kamara ; Malou Bojorquez Coding Level of Care Code HOSP INP/OBS DISCH >30 MIN Diagnoses Acute alcohol intoxication F10.920 Complication of substance-induced condition: uncomplicated Depression F32.A Fall W19.XXXA Encounter type: initial encounter
[2022-05-24 12:25] VITALS: BP 129/74; PULSE 71; TEMP 98.6; O2SAT 99
--- NOTE | 2022-05-30 13:01 | Coding Query ---
CODING QUERY To promote full compliance with coding requirements relating to patient care, provider participation is requested in all cases of presbyterian clergy uncertainty. Please assist us with the question(s) below: Coding Question(s): Please specify below, in your clinical opinion, regarding Alcohol Use Disorder: ( ) Alcohol Use Disorder - most likely mild (X ) Alcohol Use Disorder - most likely moderate or severe ( ) Other: Please Specify Physician's Response(s): Thank you Aminta Castro Principal Diagnosis: "that condition established after study, to be chiefly responsible for occasioning the admission of the patient to the hospital for care." Co-Existing Principal Diagnosis: "when two or more diagnoses equally meet the criteria for principal diagnosis as determined by the circumstances of admission, diagnostic work up, and/or therapy provided, and the Alphabetic Index, Tabular List, or another coding guideline does not provide sequencing direction, any one of the diagnoses may be sequenced first." "When the physician has documented what appears to be a current diagnosis in the body of the record, but has not included the diagnosis in the final diagnostic statement, the physician should be asked whether the diagnosis should be added." ([facility] 2 QTR90. p3-4) ALISHA
--- NOTE | 2022-05-30 13:08 | Coding Query ---
CODING QUERY To promote full compliance with coding requirements relating to patient care, provider participation is requested in all cases of stores despatch hand uncertainty. Please assist us with the question(s) below: Coding Question(s): The ER documents that the patient fell down the steps 2 nights ago and hit her head and has pain in the left side of the abdomen and left side of her back, and documents ecchymosis to the left elbow, and then beginning on the H&P there is documentation regarding Fall, "Patient reports falling 2 days ago in the shower with trauma to her head and left arm". Please clarify below, due to conflicting documentation, regarding the Fall: (X ) most likely the patient fell in the shower ( ) most likely the patient fell down the steps ( ) Other: Please Specify Patient reported to me during my encounter that she fell in the shower Physician's Response(s): Thank you Aminta Castro Principal Diagnosis: "that condition established after study, to be chiefly responsible for occasioning the admission of the patient to the hospital for care." Co-Existing Principal Diagnosis: "when two or more diagnoses equally meet the criteria for principal diagnosis as determined by the circumstances of admission, diagnostic work up, and/or therapy provided, and the Alphabetic Index, Tabular List, or another coding guideline does not provide sequencing direction, any one of the diagnoses may be sequenced first." "When the physician has documented what appears to be a current diagnosis in the body of the record, but has not included the diagnosis in the final diagnostic statement, the physician should be asked whether the diagnosis should be added." ([facility] 2 QTR90. p3-4) ALISHA
== END 2022-05-24 13:20 | disposition home or self-care (01) | DRG 897 ==
LOC: ED 20:27 → SUATTDRO 05-23 00:41 → 2S 05-23 00:41

== ENCOUNTER 2022-06-25 13:50 | Observation (INO) ==
[2022-06-25] MEDS ORDERED: SODIUM CHLORIDE 0.9% 1000ML 1,000 ML IV STA (14:14)
--- NOTE | 2022-06-25 14:14 | ED Triage Note ---
Date of Service June 25, 2022 History of Present Illness This patient was briefly evaluated while in triage. An abbreviated physical exam was performed. This patient is a 36-year-old Female who presents to the ED for evaluation of alcohol withdrawal. Her last drink was around noon time. The patient drank a half pint of vodka. The patient is requesting admission for her withdrawal. The patient has had 1 prior history of withdrawal seizure. She has been admitted in the past. Patient reports left-sided chest pain. It does not radiate into the arm, neck or back. The pain is not worsened with deep breathing. The patient has had prior chest pains with her withdrawal. She denies any shortness of breath. The patient rates her chest discomfort an 8 out of 10. Physical Exam CONSTITUTIONAL: Healthy and well nourished. Alert and oriented X 3. GCS 15. HEENT: Normocephalic, atraumatic. Pupils equal, round and reactive. NECK: Full active range of motion without discomfort. LYMPHATICS: No cervical chain adenopathy. RESPIRATORY: Clear to auscultation bilaterally with no wheezing, crackles, rhonchi or stridor. CARDIOVASCULAR: Regular rate and rhythm with no murmurs, rubs or gallops. GASTROINTESTINAL: Bowel sounds present in all quadrants. Soft and nontender to palpation MUSCULOSKELETAL: Full range of motion of all major joints without discomfort. INTEGUMENTARY: No rash or other significant dermatologic conditions noted. HEMATOLOGIC: No ecchymosis or petechiae. PSYCHIATRIC: Positive affect. NEUROLOGIC: No focal neurologic deficits noted. No tremors noted Initial orders for labs and / or imaging were placed and patient was placed in the waiting area until a bed is available. Please see further documentation for the full ED course.
--- NOTE | 2022-06-25 15:17 | XRay Report ---
SINGLE VIEW CHEST CLINICAL HISTORY: Atypical chest pain FINDINGS: An AP, portable, upright chest radiograph is compared to study dated 04/21/2022 and correlat ed with chest CT dated 05/22/2022. The examination is degraded by portable technique and patient rotat ion. The cardiomediastinal silhouette is top normal for projection. The lungs and pleural spaces are clear noting mild bibasilar atelectasis. No pneumothorax is seen. The bony thorax is grossly intact. IMPRESSION: No active disease in the chest. ACT 112: Negative or not required by law. Electronically signed by: Todd Espinosa M.D. 06/25/2022 3:16 PM
[2022-06-25 15:30] LABS: Appearance Urine Clear (Clear); Bacteria Urine Automated 2+ (Negative); Bilirubin Urine Negative (Negative); Blood Urine 1+ (Negative); Color Urine Yellow; Epithelial Cell Urine Auto >30 /lpf (0-5); Glucose Urine UA Negative (Negative); Ketones Urine Negative (Negative); Leukocyte Esterase Urine Negative (Negative); Nitrite Urine Negative (Negative); Protein Urine Negative (Negative); RBC Urine Automated 0-4 /hpf (0-4); Specific Gravity Urine 1.006 (1.000-1.030); Urobilinogen Urine Negative (Negative); pH Urine 6.5 (4.5-7.5)
[2022-06-25 15:32] LABS: Basophils # (auto) 0.09 K/uL (0-0.2); Basophils % (auto) 1.3 %; Eosinophils # (auto) 0.07 K/uL (0-0.50); Hematocrit (blood only) 35.2 % (37.0-47.0); Immature Granulocytes # (auto) 0.02 K/uL (0.01-0.20); Immature Granulocytes % (auto) 0.3 %; Lymphocytes # (auto) 3.25 K/uL (1.2-3.4); Mean Corpuscular Hemoglobin 32.3 pg (25.0-34.0); Mean Corpuscular Hgb Conc 34.1 g/dL (32.0-36.0); Mean Corpuscular Volume 94.9 fL (80.0-100.0); Mean Platelet Volume 9.4 fL (9.4-12.4); Monocytes # (auto) 0.74 K/uL (0.11-0.59); Monocytes % (auto) 10.7 %; Neutrophils # (auto) 2.75 K/uL (1.40-6.50); Neutrophils % (auto) 39.7 %; Platelet Count 363 K/uL (130-400); RDW Coefficient of Variation 14.8 % (11.5-14.5); RDW Standard Deviation 51.8 fL (36.4-46.3); Red Blood Count 3.71 M/uL (4.20-5.40); White Blood Count 6.92 K/ul (4.8-10.8)
--- NOTE | 2022-06-25 15:34 | Emergency Department Note ---
Impression & Plan Alcoholic intoxication, MDD (major depressive disorder) ED Provider Note NAME: PHILLIP AMARO AGE: 36 SEX: F : 1985 ARRIVES VIA: Walk-In INFORMANT: Patient, ED PROVIDER(S): Jose E Card MD CHIEF COMPLAINT: Chest pain, alcohol use MEDICAL DECISION MAKING: Patient presents due to concern for chest pain and alcohol use. The patient would like to be admitted for possible withdrawal and/or for sobriety and rehab. IV established blood was obtained along with an EKG troponin chest x-ray. The patient's blood work shows a normal white count and hemoglobin. Platelet count is unremarkable. EKG without changes and the patient pain is not elevated. Do not believe that the patient has ACS. Given the patient's significant alcohol intoxication with alcohol greater than 400 did speak the on-call hospital service Dr. Polo and the patient was admitted to the medicine service Chest x-ray is clear. Kidney function unremarkable Prior /Outside records reviewed: Did review the patient's most recent discharge summary from Dr. Pop May 2022. Patient does have known history of alcohol abuse withdrawal seizures PTSD anxiety and depression who did present with alcohol related withdrawal symptoms. Differential diagnosis: ACS, pneumonia, PE, alcohol intoxication, toxicologic, infection, hypoglycemia, electrolyte abnormalities, cardiac sources, intracerebral event, neurologic, trauma, as well as other pathologies. Diagnostics, as interpreted by me: ECG: Normal sinus rhythm, rate of 72, normal intervals normal axis T wave version in lead III noncontiguous leads. No ST elevations and no significant change for comparison May 22 Cardiac monitoring: An order was placed for continuous cardiac monitoring. The monitor shows a rate of 77 with sinus rhythm. Patient was placed on pulse oximetry Medical decision rules: none Imaging studies: See below HPI: Patient presents due to concern of alcohol withdrawal. The patient last drink approximately 1/2 pint of vodka around the time. The patient would like to be admitted for withdrawal as patient is trying to stop drinking. Prior history of prior withdrawal seizure 1 time. The patient does complain of some left-sided chest discomfort. Does not radiate not worse with inspiration. Patient has had prior chest discomfort with alcohol use. No shortness of breath. PAST MEDICAL HISTORY: See Below PAST SURGICAL HISTORY: See Below SOCIAL HISTORY: See Below HOME MEDICATIONS: See Below ALLERGIES: See Below VITALS: See Below PHYSICAL EXAMINATION: GENERAL: Resting in bed, nontoxic in appearance. EYE EXAM: Normal conjunctiva. PERRL, no anisocoria and EOM's grossly intact w/o pain. NECK: Supple, no nuchal rigidity, no adenopathy, non-tender. No signs of meningismus. FROM of the neck with good chin to chest and neck extension. No stridor. LUNGS: Clear to auscultation. Normal chest wall mechanics. HEART: NSR, no MRG. ABDOMEN: Abdomen soft, non-tender, no masses, no rebound or guarding. BACK: No CVA TTP. SKIN: No rashes and no bruising. UPPER EXTREMITIES: Upper extremities are grossly normal. LOWER EXTREMITIES: Grossly normal, no edema. NEURO EXAM: A&O x3, cranial nerves II-XII grossly intact, normal speech, moves all 4 extremities. Past Med/Surg History Medical History Acute alcohol intoxication Alcohol abuse Alcohol dependence Alcohol withdrawal Anxiety with depression Breast lump on left side at 11 o'clock position Hepatic steatosis History of alcohol withdrawal syndrome History of intussusception Hypokalemia Hypokalemia Hypomagnesemia Miscarriage Pancreatitis PTSD (post-traumatic stress disorder) Reflux gastritis Tension headache Thrombocytopenia Transaminitis Surgical History H/O foot surgery Previous section S/P dilation and curettage Family History Mother Depression Anxiety Brother Depression Anxiety Denies family history of Ovarian cancer Prostate cancer Diabetes Myocardial infarction Breast cancer Colorectal cancer Hypertension Social History Smoking Status: Never smoker Second Hand Exposure: No; Do You Dip or Chew Tobacco: No; Tobacco Cessation Education Requested by Patient: No Hx Alcohol Use: Yes Alcohol type: hard liquor Hx Substance Use: No Preferred Language: Persian Communication Ability: Effective Visual Impairment: No Limitations Hearing Ability: Normal 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 Beliefs That Will Affect Care: None marital status: Current Living Situation: Alone Current Living Situation Comment: with parents and her son 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[employer] How many Children do You have: 1 Other Information That Helps Us Care for You: No Feels Safe at Home: Yes Safety Concerns: Feels Safe At This Time Childhood Exposure to Second-Hand Smoke: No Dental Care, Regularly: Yes Physical Activity Frequency: 5-6 Times per Week Seatbelt Use: always Sunscreen Use: Yes Assistive Devices: None Allergies Allergies Allergy/AdvReac Type Severity Reaction Status Date / Time lactose Allergy Intermediate Gastrointestinal Verified 05/23/22 00:50 Upset Home Meds Home Medications Medication Instructions Recorded Confirmed prazosin 1 mg capsule 3 mg PO HS 06/08/21 06/25/22 cyclobenzaprine 10 mg tablet 10 mg PO BID 12/09/21 06/25/22 duloxetine 30 mg capsule,delayed 30 mg PO QAM 01/15/22 06/25/22 release mirtazapine 15 mg tablet 15 mg PO HS 01/15/22 06/25/22 linaclotide 145 mcg capsule 145 mcg PO DAILY 04/21/22 06/25/22 (Linzess) duloxetine 60 mg capsule,delayed 60 mg PO QAM 04/29/22 06/25/22 release buspirone 7.5 mg tablet 7.5 mg PO BID 05/23/22 06/25/22 gabapentin 300 mg capsule 300 mg PO TID 05/23/22 06/25/22 prenat.vits,juana,pvo-[id number]-[id number] 1 tab PO DAILY 05/23/22 06/25/22 acetaminophen 325 mg tablet 650 mg PO BID PRN Fever Or Pain 06/25/22 06/25/22 (Tylenol) propranolol 10 mg tablet 10 mg PO AMHS 06/25/22 06/25/22 Previous Rx's Medication Instructions Recorded metoprolol tartrate 25 mg tablet 25 mg PO BID #60 tabs 05/24/22 Results & Data (ED) Vital Signs Vital Signs - 24 hr 06/25/22 14:11 06/25/22 15:24 06/25/22 15:24 Temperature 36.2 C L Temperature Source Temporal Artery Scan Pulse Rate 84 Pulse Rate [Apical] 72 Pulse Rhythm Regular Pulse Strength Normal Respiratory Rate 18 16 Respiratory Effort / Characteristics Non-Labored Spontaneous Respiratory Depth Normal Respiratory Pattern Regular Blood Pressure 145/107 H Blood Pressure [Left Arm] 125/85 Blood Pressure Mean 119 Blood Pressure Mean [Left Arm] 98 Blood Pressure Position Sitting Pulse Oximetry 95 93 93 Oxygen Delivery Method Room Air Room Air Room Air Sepsis Recent Fever Within 48 Hours No Sepsis New/Unexplained Change in Mental Status No Sepsis Action Taken by Nursing No Action Required 06/25/22 15:26 06/25/22 16:01 06/25/22 16:26 Temperature Temperature Source Pulse Rate 69 Pulse Rate [Apical] 75 Pulse Rhythm Pulse Strength Respiratory Rate 16 Respiratory Effort / Characteristics Non-Labored Spontaneous Respiratory Depth Normal Respiratory Pattern Blood Pressure Blood Pressure [Left Arm] 110/71 Blood Pressure Mean Blood Pressure Mean [Left Arm] 84 Blood Pressure Position Pulse Oximetry 92 Oxygen Delivery Method Room Air Room Air Sepsis Recent Fever Within 48 Hours Sepsis New/Unexplained Change in Mental Status Sepsis Action Taken by Nursing 06/25/22 17:00 06/25/22 17:30 Temperature 37 C Temperature Source Oral Pulse Rate Pulse Rate [Apical] 72 68 Pulse Rhythm Pulse Strength Respiratory Rate 16 16 Respiratory Effort / Characteristics Respiratory Depth Respiratory Pattern Blood Pressure Blood Pressure [Left Arm] 112/76 127/88 Blood Pressure Mean Blood Pressure Mean [Left Arm] 88 101 Blood Pressure Position Pulse Oximetry 97 95 Oxygen Delivery Method Room Air Room Air Sepsis Recent Fever Within 48 Hours Sepsis New/Unexplained Change in Mental Status Sepsis Action Taken by Long-Term Medications Current Medication List: was personally reviewed by me Laboratory Data Attestation: I reviewed the patient's lab results. 06/25/22 15:06 06/25/22 15:06 Lab Results 06/25/22 06/25/22 06/25/22 Range/Units 15:02 15:06 15:06 WBC 6.92 (4.8-10.8) K/ul RBC 3.71 L (4.20-5.40) M/uL Hgb 12.0 (12.0-16.0) g/dl Hct 35.2 L (37.0-47.0) % MCV 94.9 (80.0-100.0) fL MCH 32.3 (25.0-34.0) pg MCHC 34.1 (32.0-36.0) g/dL RDW Std Deviation 51.8 H (36.4-46.3) fL RDW Coeff of Dall[place] 14.8 H (11.5-14.5) % Plt Count 363 (130-400) K/uL MPV 9.4 (9.4-12.4) fL Immature Gran % (Auto) 0.3 % Neut % (Auto) 39.7 % Lymph % (Auto) 47.0 % [place] % (Auto) 10.7 % Eos % (Auto) 1.0 % Baso % (Auto) 1.3 % Neut # (Auto) 2.75 (1.40-6.50) K/uL Lymph # (Auto) 3.25 (1.2-3.4) K/uL [place] # (Auto) 0.74 H (0.11-0.59) K/uL Eos # (Auto) 0.07 (0-0.50) K/uL Baso # (Auto) 0.09 (0-0.2) K/uL Immature Gran # (Auto) 0.02 (0.01-0.20) K/uL PT 10.7 (9.0-12.0) Seconds INR 1.0 (0.9-1.1) APTT 24.7 (21.0-31.0) Seconds PTT Ratio 0.9 Sodium (136-145) mmol/L Potassium (3.5-5.1) mmol/L Chloride (98-107) mmol/L Carbon Dioxide (21-32) mmol/L Anion Gap (3-11) BUN (6-23) mg/dl Creatinine (0.6-1.2) mg/dl Est Cr Clr Drug Dosing ml/min Est GFR ( Amer) ml/min Est GFR (Non-Af Amer) ml/min BUN/Creatinine Ratio (10-20) Glucose (70-99(Fasting)) mg/dl Calcium (8.6-10.3) mg/dl Magnesium Cancelled Total Bilirubin (0.2-1.0) mg/dl AST (13-39) U/L ALT (7-52) U/L Alkaline Phosphatase (34-104) U/L Troponin I High Sens (0-14) pg/ml Total Protein (6.0-8.3) gm/dl Albumin (3.4-5.0) gm/dl Globulin (2.5-4.0) gm/dl Albumin/Globulin Ratio (0.9-2) Lipase (11-82) U/L Urine Color Urine Appearance (Clear) Urine pH (4.5-7.5) Ur Specific [place] (1.000-1.030) Urine Protein (Negative) Urine Glucose (UA) (Negative) Urine Ketones (Negative) Urine Blood (Negative) Urine Nitrite (Negative) Urine Bilirubin (Negative) Urine Urobilinogen (Negative) Ur Leukocyte Esterase (Negative) Urine WBC (Auto) (0-5) /hpf Urine RBC (Auto) (0-4) /hpf U Hyaline Cast (Auto) (0-5) /lpf U Epithel Cells (Auto) (0-5) /lpf Urine Bacteria (Auto) (Negative) Urine Opiates Screen (Neg) Ur Methadone, Qual (Neg) Urine Barbiturates (Neg) Ur Phencyclidine (PCP) (Neg) U Amphetamin/Meth Scrn (Neg) MDMA (Ecstasy) Screen (Neg) U Benzodiazepines Scrn (Neg) Ur Cocaine Metabolite (Neg) U Marijuana (THC) Screen (Neg) Ethyl Alcohol mg/dL (<10.0) mg/dl SARS-CoV-2, RNA, NAAT (NEGATIVE) 06/25/22 06/25/22 06/25/22 Range/Units 15:06 15:06 15:06 WBC (4.8-10.8) K/ul RBC (4.20-5.40) M/uL Hgb (12.0-16.0) g/dl Hct (37.0-47.0) % MCV (80.0-100.0) fL MCH (25.0-34.0) pg MCHC (32.0-36.0) g/dL RDW Std Deviation (36.4-46.3) fL RDW Coeff of Dallin (11.5-14.5) % Plt Count (130-400) K/uL MPV (9.4-12.4) fL Immature Gran % (Auto) % Neut % (Auto) % Lymph % (Auto) % [place] % (Auto) % Eos % (Auto) % Baso % (Auto) % Neut # (Auto) (1.40-6.50) K/uL Lymph # (Auto) (1.2-3.4) K/uL [place] # (Auto) (0.11-0.59) K/uL Eos # (Auto) (0-0.50) K/uL Baso # (Auto) (0-0.2) K/uL Immature Gran # (Auto) (0.01-0.20) K/uL PT (9.0-12.0) Seconds INR (0.9-1.1) APTT (21.0-31.0) Seconds PTT Ratio Sodium 137 (136-145) mmol/L Potassium 3.8 (3.5-5.1) mmol/L Chloride 104 (98-107) mmol/L Carbon Dioxide 23 (21-32) mmol/L Anion Gap 10 (3-11) BUN 12 (6-23) mg/dl Creatinine 0.69 (0.6-1.2) mg/dl Est Cr Clr Drug Dosing 124.8 ml/min Est GFR ( Amer) 128.9 ml/min Est GFR (Non-Af Amer) 111.2 ml/min BUN/Creatinine Ratio 17.4 (10-20) Glucose 83 (70-99(Fasting)) mg/dl Calcium 8.5 L (8.6-10.3) mg/dl Magnesium 1.7 Total Bilirubin 0.3 (0.2-1.0) mg/dl AST 58 H (13-39) U/L ALT 31 (7-52) U/L Alkaline Phosphatase 47 (34-104) U/L Troponin I High Sens 3.4 (0-14) pg/ml Total Protein 6.9 (6.0-8.3) gm/dl Albumin 4.2 (3.4-5.0) gm/dl Globulin 2.7 (2.5-4.0) gm/dl Albumin/Globulin Ratio 1.6 (0.9-2) Lipase 53 (11-82) U/L Urine Color Yellow Urine Appearance Clear (Clear) Urine pH 6.5 (4.5-7.5) Ur Specific [place] 1.006 (1.000-1.030) Urine Protein Negative (Negative) Urine Glucose (UA) Negative (Negative) Urine Ketones Negative (Negative) Urine Blood 1+ H (Negative) Urine Nitrite Negative (Negative) Urine Bilirubin Negative (Negative) Urine Urobilinogen Negative (Negative) Ur Leukocyte Esterase Negative (Negative) Urine WBC (Auto) 1-5 (0-5) /hpf Urine RBC (Auto) 0-4 (0-4) /hpf U Hyaline Cast (Auto) 1-5 (0-5) /lpf U Epithel Cells (Auto) >30 H (0-5) /lpf Urine Bacteria (Auto) 2+ H (Negative) Urine Opiates Screen (Neg) Ur Methadone, Qual (Neg) Urine Barbiturates (Neg) Ur Phencyclidine (PCP) (Neg) U Amphetamin/Meth Scrn (Neg) MDMA (Ecstasy) Screen (Neg) U Benzodiazepines Scrn (Neg) Ur Cocaine Metabolite (Neg) U Marijuana (THC) Screen (Neg) Ethyl Alcohol mg/dL 492.0 H (<10.0) mg/dl SARS-CoV-2, RNA, NAAT (NEGATIVE) 06/25/22 06/25/22 Range/Units 15:06 17:05 WBC (4.8-10.8) K/ul RBC (4.20-5.40) M/uL Hgb (12.0-16.0) g/dl Hct (37.0-47.0) % MCV (80.0-100.0) fL MCH (25.0-34.0) pg MCHC (32.0-36.0) g/dL RDW Std Deviation (36.4-46.3) fL RDW Coeff of Dallin (11.5-14.5) % Plt Count (130-400) K/uL MPV (9.4-12.4) fL Immature Gran % (Auto) % Neut % (Auto) % Lymph % (Auto) % [place] % (Auto) % Eos % (Auto) % Baso % (Auto) % Neut # (Auto) (1.40-6.50) K/uL Lymph # (Auto) (1.2-3.4) K/uL [place] # (Auto) (0.11-0.59) K/uL Eos # (Auto) (0-0.50) K/uL Baso # (Auto) (0-0.2) K/uL Immature Gran # (Auto) (0.01-0.20) K/uL PT (9.0-12.0) Seconds INR (0.9-1.1) APTT (21.0-31.0) Seconds PTT Ratio Sodium (136-145) mmol/L Potassium (3.5-5.1) mmol/L Chloride (98-107) mmol/L Carbon Dioxide (21-32) mmol/L Anion Gap (3-11) BUN (6-23) mg/dl Creatinine (0.6-1.2) mg/dl Est Cr Clr Drug Dosing ml/min Est GFR ( Amer) ml/min Est GFR (Non-Af Amer) ml/min BUN/Creatinine Ratio (10-20) Glucose (70-99(Fasting)) mg/dl Calcium (8.6-10.3) mg/dl Magnesium Total Bilirubin (0.2-1.0) mg/dl AST (13-39) U/L ALT (7-52) U/L Alkaline Phosphatase (34-104) U/L Troponin I High Sens (0-14) pg/ml Total Protein (6.0-8.3) gm/dl Albumin (3.4-5.0) gm/dl Globulin (2.5-4.0) gm/dl Albumin/Globulin Ratio (0.9-2) Lipase (11-82) U/L Urine Color Urine Appearance (Clear) Urine pH (4.5-7.5) Ur Specific [place] (1.000-1.030) Urine Protein (Negative) Urine Glucose (UA) (Negative) Urine Ketones (Negative) Urine Blood (Negative) Urine Nitrite (Negative) Urine Bilirubin (Negative) Urine Urobilinogen (Negative) Ur Leukocyte Esterase (Negative) Urine WBC (Auto) (0-5) /hpf Urine RBC (Auto) (0-4) /hpf U Hyaline Cast (Auto) (0-5) /lpf U Epithel Cells (Auto) (0-5) /lpf Urine Bacteria (Auto) (Negative) Urine Opiates Screen Neg (Neg) Ur Methadone, Qual Neg (Neg) Urine Barbiturates Neg (Neg) Ur Phencyclidine (PCP) Neg (Neg) U Amphetamin/Meth Scrn Neg (Neg) MDMA (Ecstasy) Screen Neg (Neg) U Benzodiazepines Scrn Pos H (Neg) Ur Cocaine Metabolite Neg (Neg) U Marijuana (THC) Screen Neg (Neg) Ethyl Alcohol mg/dL (<10.0) mg/dl SARS-CoV-2, RNA, NAAT NEGATIVE (NEGATIVE) Administered Medications Buspirone HCl (Buspirone 7.5 Mg Tab) 7.5 mg PO BID [facility] Stop: 07/26/22 08:59 Last Admin: 06/26/22 09:40 Dose: 7.5 mg Documented By: KENYETTA Duloxetine HCl (Duloxetine Hcl 60 Mg Cap) [facility] Stop: 07/26/22 08:59 Last Admin: 06/26/22 09:40 Dose: 60 mg Documented By: KENYETTA Duloxetine HCl (Duloxetine Hcl 30 Mg Cap) [facility] [place] Stop: 07/26/22 08:59 Last Admin: 06/26/22 09:40 Dose: 30 mg Documented By: KENYETTA Gabapentin (Gabapentin 300 Mg Cap) 300 mg PO TID JOSE F Stop: 07/26/22 08:59 Last Admin: 06/26/22 10:29 Dose: Not Given Documented By: KENYETTA Lactated Ringer's (Lr) 1,000 mls @ 125 mls/hr IV .Q8H JOSE F Stop: 07/25/22 20:58 Last Admin: 06/26/22 05:31 Dose: 125 mls/hr Documented By: Infusion: 06/26/22 05:30 Dose: 0 mls/hr Documented By: Admin: 06/25/22 21:29 Dose: 125 mls/hr Documented By: MODESTO Thiamine HCl 100 mg/ Syringe 10 mls @ 2 mls/min IV [facility] Stop: 07/26/22 08:59 Last Admin: 06/26/22 09:39 Dose: 2 mls/min Documented By: KENYETTA Linaclotide (Linaclotide 145 Mcg Capsule) 145 mcg PO DAILY [facility] Stop: 07/26/22 08:59 Last Admin: 06/26/22 09:40 Dose: 145 mcg Documented By: KENYETTA Prazosin HCl (Prazosin Hcl 1 Mg Cap) 3 mg PO HS JOSE F Stop: 07/25/22 22:49 Last Admin: 06/25/22 23:40 Dose: Not Given Documented By: MODESTO Discontinued Medications Sodium Chloride (Nss 1000ml) 1,000 mls @ 999 mls/hr IV .Q1H1M STA Stop: 06/25/22 15:14 Last Infusion: 06/25/22 16:26 Dose: 0 mls/hr Documented By: Admin: 06/25/22 15:26 Dose: 999 mls/hr Documented By: CONY Thiamine HCl 100 mg/ Folic (Acid 1 mg/ Sodium Chloride) 1,001.2 mls @ 500 mls/hr IV .Q2H1M JOSE F; Protocol Stop: 07/25/22 16:29 Last Admin: 06/26/22 06:58 Dose: Not Given Documented By: Infusion: 06/25/22 20:09 Dose: 0 mls/hr Documented By: Admin: 06/25/22 19:53 Dose: Not Given Documented By: Admin: 06/25/22 17:07 Dose: 500 mls/hr Documented By: CONY Lorazepam (Lorazepam 2 Mg/1 Ml Vial) 1 mg IV ONE PRN; Protocol PRN Reason: EtoH Withdrawal AWSS 6,7,8,9,10 Last Admin: 06/26/22 07:58 Dose: 1 mg Documented By: KENYETTA Lorazepam (Lorazepam 2 Mg/1 Ml Vial) 0.5 mg IV NOW STA Stop: 06/26/22 12:43 Last Admin: 06/26/22 12:52 Dose: 0.5 mg Documented By: KENYETTA Metoprolol Tartrate (Metoprolol Tartrate 25 Mg Tab) 25 mg PO BID JOSE F Stop: 07/25/22 22:59 Last Admin: 06/25/22 23:40 Dose: Not Given Documented By: MODESTO Multivitamins/Minerals (Cerovite Adv Formula Tab) 1 tab PO ONE STA Stop: 06/25/22 16:27 Last Admin: 06/25/22 16:48 Dose: Not Given Documented By: CONY Ondansetron HCl (Ondansetron Inj 2 Mg/Ml 2 Ml Vial) 4 mg IV ONE STA Stop: 06/25/22 19:31 Last Admin: 06/25/22 19:47 Dose: 4 mg Documented By: CONY Imaging Data Radiologist's Impression: Chest X-Ray 06/25/22 14:15 SINGLE VIEW CHEST CLINICAL HISTORY: Atypical chest pain FINDINGS: An AP, portable, upright chest radiograph is compared to study dated 04/21/2022 and correlated with chest CT dated 05/22/2022. The examination is degraded by portable technique and patient rotation. The cardiomediastinal silhouette is top normal for projection. The lungs and pleural spaces are clear noting mild bibasilar atelectasis. No pneumothorax is seen. The bony thorax is grossly intact. IMPRESSION: No active disease in the chest. ACT 112: Negative or not required by law. Electronically signed by: Todd Espinosa M.D. 06/25/2022 3:16 PM Discharge Plan Visit Data Chief Complaint: Alcohol Withdrawal Stated Complaint: ALCOHOLO WITHDRAWAL ED Provider: Jose E Card Discharge Problem: Alcoholic intoxication, MDD (major depressive disorder) Patient Disposition: Admitted As Inpatient Discharge Instructions Interventions: ED Discharge Assessment Last Done: 06/25/22 20:08
[2022-06-25 15:54] LABS: Albumin Globulin Ratio 1.6 (0.9-2); Albumin Level 4.2 gm/dl (3.4-5.0); BUN Creatinine Ratio 17.4 (10-20); Bilirubin,Total 0.3 mg/dl (0.2-1.0); Calcium 8.5 mg/dl (8.6-10.3); Creatinine Clr Calc Pharmacy 124.8 ml/min; Est GFR (African American) 128.9 ml/min; Est GFR (Non-African American) 111.2 ml/min; Globulin 2.7 gm/dl (2.5-4.0); Magnesium 1.7 mg/dl (1.7-2.4); Potassium 3.8 mmol/L (3.5-5.1); Total Protein 6.9 gm/dl (6.0-8.3)
[2022-06-25 15:56] LABS: Partial Thromboplastin Ratio 0.9; Partial Thromboplastin Time 24.7 Seconds (21.0-31.0); Prothrombin Time 10.7 Seconds (9.0-12.0)
[2022-06-25 15:57] LABS: Troponin I High Sensitivity 3.4 pg/ml (0-14)
[2022-06-25 15:58] LABS: Amphetamines+Metham, Urine Neg (Neg); Barbiturates, Urine Neg (Neg); Benzodiazepine, Urine Pos (Neg); Cocaine, Urine Neg (Neg); MDMA (Ecstacy), Urine Neg (Neg); Methadone, Urine Neg (Neg); Opiate, Urine Neg (Neg); Phencyclidine, Urine Neg (Neg)
[2022-06-25] MEDS ORDERED: CEROVITE ADV FORMULA TAB PO STA (16:26)
[2022-06-25] MEDS ORDERED: LORazepam 2 MG/1 ML VIAL IV PRN (16:26)
--- NOTE | 2022-06-25 16:40 | Electrocardiogram Report ---
Test Reason : Blood Pressure : / mmHG Vent. Rate : 072 BPM Atrial Rate : 072 BPM P-R Int : 152 ms QRS Dur : 088 ms QT Int : 406 ms P-R-T Axes : 021 026 007 degrees QTc Int : 444 ms Normal sinus rhythm Poor R wave progression, consider anterior IA vs. lead placement vs. LVH Abnormal ECG When compared with ECG of 22-MAY-2022 21:34, No significant change was found Confirmed by James Sheikh ([id number]) on 06/25/2022 4:40:31 PM Referred By: REFERRED SELF Confirmed By:James Sheikh
[2022-06-25] MEDS: THIAMINE HCL 100 MG, FOLIC ACID 1 MG in SODIUM CHLORIDE 0.9% 1000ML 1,000 ML IV SCH ×2 (17:07→19:53)
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
[2022-06-25] MEDS ORDERED: ONDANSETRON INJ 2 MG/ML 2 ML VIAL IV STA (19:30)
[2022-06-25] MEDS ORDERED: ACETAMINOPHEN 325 MG TAB PO PRN (20:59)
[2022-06-25] MEDS: LACTATED RINGER'S 1,000 ML IV SCH (21:29)
[2022-06-25] MEDS ORDERED: METOPROLOL TARTRATE 25 MG TAB PO SCH (23:00)
[2022-06-25] MEDS: PRAZOSIN HCL 1 MG CAP PO SCH (23:40)
[2022-06-26] MEDS: LACTATED RINGER'S 1,000 ML IV SCH ×3 (05:31→20:50)
[2022-06-26] MEDS: THIAMINE HCL 100 MG, FOLIC ACID 1 MG in SODIUM CHLORIDE 0.9% 1000ML 1,000 ML IV SCH (06:58)
[2022-06-26 08:11] LABS: Hematocrit (blood only) 33.2 % (37.0-47.0); Hemoglobin 11.3 g/dl (12.0-16.0); Mean Corpuscular Hemoglobin 32.7 pg (25.0-34.0); Mean Platelet Volume 9.5 fL (9.4-12.4); Platelet Count 313 K/uL (130-400); RDW Coefficient of Variation 14.7 % (11.5-14.5); RDW Standard Deviation 51.6 fL (36.4-46.3); Red Blood Count 3.46 M/uL (4.20-5.40); White Blood Count 5.55 K/ul (4.8-10.8)
[2022-06-26] MEDS ORDERED: hydrOXYzine HCl 25 MG TAB PO PRN (08:41)
[2022-06-26] MEDS ORDERED: PROPRANOLOL HCL 10 MG TAB PO SCH (09:00)
[2022-06-26 09:26] LABS: Albumin Globulin Ratio 1.6 (0.9-2); Albumin Level 3.7 gm/dl (3.4-5.0); BUN Creatinine Ratio 13.3 (10-20); Bilirubin,Total 0.3 mg/dl (0.2-1.0); Calcium 7.8 mg/dl (8.6-10.3); Creatinine Clr Calc Pharmacy 118.5 ml/min; Est GFR (Non-African American) 101.8 ml/min; Globulin 2.3 gm/dl (2.5-4.0); Magnesium 1.5 mg/dl (1.7-2.4); Phosphorus 3.3 mg/dl (2.5-4.9); Potassium 3.9 mmol/L (3.5-5.1)
[2022-06-26] MEDS: THIAMINE HCL 100 MG in SYRINGE 9 ML IV SCH (09:39)
[2022-06-26] MEDS: DULoxetine HCL 30 MG CAP PO SCH (09:40)
[2022-06-26] MEDS: LINACLOTIDE 145 MCG CAPSULE PO SCH (09:40)
[2022-06-26] MEDS: DULoxetine HCL 60 MG CAP PO SCH (09:40)
[2022-06-26] MEDS: busPIRone 7.5 MG TAB PO SCH ×2 (09:40→20:51)
[2022-06-26] MEDS: GABAPENTIN 300 MG CAP PO SCH ×3 (10:29→20:51)
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
[2022-06-26] MEDS ORDERED: LORazepam 2 MG/1 ML VIAL IV STA (12:42)
--- NOTE | 2022-06-26 13:16 | Electrocardiogram Report ---
Test Reason : Blood Pressure : / mmHG Vent. Rate : 071 BPM Atrial Rate : 071 BPM P-R Int : 148 ms QRS Dur : 076 ms QT Int : 436 ms P-R-T Axes : 034 049 019 degrees QTc Int : 473 ms Normal sinus rhythm Low voltage QRS Borderline ECG When compared with ECG of 25-JUN-2022 15:05, No significant change was found Confirmed by James Sheikh ([id number]) on 06/26/2022 1:16:19 PM Referred By: REFERRED SELF Confirmed By:James Sheikh
--- NOTE | 2022-06-26 13:54 | Electrocardiogram Report ---
Test Reason : Blood Pressure : / mmHG Vent. Rate : 087 BPM Atrial Rate : 087 BPM P-R Int : 136 ms QRS Dur : 084 ms QT Int : 390 ms P-R-T Axes : 054 046 005 degrees QTc Int : 469 ms Normal sinus rhythm Poor R wave progression, consider anterior MO vs. lead placement vs. LVH Abnormal ECG When compared with ECG of 25-JUN-2022 18:26, (unconfirmed) Inverted T waves have replaced nonspecific T wave abnormality in Anterior leads Confirmed by James Sheikh ([id number]) on 06/26/2022 1:53:58 PM Referred By: REFERRED SELF Confirmed By:James Sheikh
[2022-06-26] MEDS ORDERED: LORazepam 1 MG TAB PO PRN (18:11)
[2022-06-26] MEDS ORDERED: LORazepam 2 MG/1 ML VIAL IV PRN ×2 (19:23)
[2022-06-26] MEDS ORDERED: Ativan IV Alcohol Withdrawal--Active Protocol IV PRN (19:23)
[2022-06-26] MEDS: LORazepam 2 MG/1 ML VIAL IV PRN (20:47)
[2022-06-26] MEDS: PROPRANOLOL HCL 10 MG TAB PO SCH (20:51)
[2022-06-26] MEDS: PRAZOSIN HCL 1 MG CAP PO SCH (20:51)
[2022-06-27] MEDS: LACTATED RINGER'S 1,000 ML IV SCH (04:10)
[2022-06-27 07:44] LABS: Hemoglobin 10.9 g/dl (12.0-16.0); Mean Corpuscular Hgb Conc 35.2 g/dL (32.0-36.0); Mean Corpuscular Volume 93.9 fL (80.0-100.0); Platelet Count 253 K/uL (130-400); RDW Standard Deviation 48.7 fL (36.4-46.3); White Blood Count 4.28 K/ul (4.8-10.8)
[2022-06-27 08:06] LABS: Albumin Level 3.4 gm/dl (3.4-5.0); BUN Creatinine Ratio 10.4 (10-20); Bilirubin Direct 0.1 mg/dl (0-0.2); Bilirubin,Total 0.7 mg/dl (0.2-1.0); Calcium 8.1 mg/dl (8.6-10.3); Creatinine Clr Calc Pharmacy 132.7 ml/min; Est GFR (African American) 130.1 ml/min; Est GFR (Non-African American) 112.3 ml/min; Potassium 3.7 mmol/L (3.5-5.1); Total Protein 5.6 gm/dl (6.0-8.3)
[2022-06-27 08:26] LABS: Vitamin B12 219 pg/ml (180-914)
[2022-06-27] MEDS: LORazepam 2 MG/1 ML VIAL IV PRN (08:32)
[2022-06-27] MEDS: THIAMINE HCL 100 MG in SYRINGE 9 ML IV SCH (08:39)
[2022-06-27] MEDS ORDERED: THIAMINE HCL 100 MG TAB PO SCH (09:00)
[2022-06-27] MEDS ORDERED: FOLIC ACID 1 MG TAB PO SCH (09:00)
[2022-06-27] MEDS ORDERED: ONDANSETRON INJ 2 MG/ML 2 ML VIAL IV PRN (09:21)
[2022-06-27] MEDS: DULoxetine HCL 60 MG CAP PO SCH (09:48)
[2022-06-27] MEDS: busPIRone 7.5 MG TAB PO SCH (09:48)
[2022-06-27] MEDS: LINACLOTIDE 145 MCG CAPSULE PO SCH (09:48)
[2022-06-27] MEDS: DULoxetine HCL 30 MG CAP PO SCH (09:48)
[2022-06-27] MEDS: GABAPENTIN 300 MG CAP PO SCH ×2 (09:48→14:16)
[2022-06-27] MEDS: PROPRANOLOL HCL 10 MG TAB PO SCH (09:48)
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
[2022-06-28 00:13] LABS: 7-Aminoclonaz, Confirm NEGATIVE ng/mL (<25); Hydro-Alp Ur, GC/MS NEGATIVE ng/mL (<25); Hydroxyethylflurazepam, Conf NEGATIVE ng/mL (<50); Hydroxymidazolam Ur, GC/MS NEGATIVE ng/mL (<50); Hydroxytriazolam NEGATIVE ng/mL (<50); Lorazepam, Ur GC/MS NEGATIVE ng/mL (<50); Nordiazepam, Confirm NEGATIVE ng/mL (<50); Oxazepam Ur, GC/MS NEGATIVE ng/mL (<50); Temazepam, Confirm NEGATIVE ng/mL (<50)
== END 2022-06-27 16:01 | disposition home or self-care (01) ==
LOC: ED 13:50 → 3N 13:50 → SUATTDRO 17:42 → 3N 20:08

== ENCOUNTER 2022-09-02 20:03 | Inpatient (IN) ==
[2022-09-02 21:12] LABS: Pregnancy Test, Serum Negative (Negative)
[2022-09-02 21:15] LABS: BUN Creatinine Ratio 9.6 (10-20); Calcium 8.8 mg/dl (8.6-10.3); Creatinine Clr Calc Pharmacy 120.6 ml/min; Est GFR (African American) 121.1 ml/min; Est GFR (Non-African American) 104.5 ml/min; Potassium 2.8 mmol/L (3.5-5.1)
[2022-09-02] MEDS ORDERED: POTASSIUM CHLORIDE / WTR 10 MEQ/100 ML PLCT IV ONE (21:39)
[2022-09-02] MEDS ORDERED: POTASSIUM CHLORIDE CRTAB 20 MEQ TABCR PO STA (21:39)
[2022-09-02] MEDS ORDERED: CEROVITE ADV FORMULA TAB PO ONE (21:40)
[2022-09-02 21:44] LABS: Appearance Urine Slightly Cloudy (Clear); Bilirubin Urine Negative (Negative); Blood Urine Trace-lysed (Negative); Color Urine Yellow; Glucose Urine UA Negative (Negative); Ketones Urine Negative (Negative); Leukocyte Esterase Urine Negative (Negative); Nitrite Urine Negative (Negative); Protein Urine 1+ (Negative); Specific Gravity Urine 1.025 (1.000-1.030); Urobilinogen Urine Negative (Negative)
[2022-09-02 21:55] LABS: Epithelial Cell Urine >30 /lpf (0-5); RBC Urine 0-4 /hpf (0-4)
[2022-09-02 21:56] LABS: WBC Urine 0-5 /hpf (0-5)
[2022-09-02 22:00] LABS: Bacteria Urine Negative (Negative)
--- NOTE | 2022-09-02 22:09 | Emergency Department Note ---
Impression & Plan Alcohol use disorder, Hypokalemia ED Provider Note Provider: Wilbur Patton MD DATE OF SERVICE: 09/02/2022 CHIEF COMPLAINT: Alcohol abuse HISTORY OF PRESENT ILLNESS: Patient is a 37-year-old female history of anxiety, PTSD, and alcohol withdrawal including history of seizures presenting here today stating that she wants to stop drinking. Was here several months ago and states has been sober for several months but fell off the wagon. States he drinks liquor and last drink was this morning. Dates she has been a bit nauseous and bit of an anxious she is very worried that she could have a seizure as she has had seizures or withdrawal before. States she feels that rehabs are toxic and not sure that she wishes to go to one again. Denies other drug use. Denies significant pain or trauma at this time. Somewhat tearful and states has been having issues with her PTSD nightmares. PAST MEDICAL HISTORY: As noted above MEDICATIONS: Reviewed home medications SOCIAL HISTORY: History of alcohol abuse PHYSICAL EXAM: GENERAL: alert and oriented somewhat tearful and anxious sitting on the bed Head: normocephalic and atraumatic EYES: No injection, discharge or icterus. NECK: Trachea midline. Supple. ENT: Mucous membranes pink and moist. LUNGS: Airway patent. No retractions or tachypnea HEART: Regular tachycardic rate and rhythm. No chest wall tenderness ABDOMEN: Soft and non-tender, without guarding or rebound. SKIN: Acyanotic, warm, dry, without rashes EXTREMITIES: Without swelling, tenderness or deformity NEUROLOGICAL: No aphasia. No facial droop or slurred speech. Normal strength and tone in the extremities. Sensation to gross touch normal. Ambulatory. Mildly tremulous EK beats. Normal sinus rhythm. No PVC or PAC. No acute ST segment elevation with some nonspecific anterior lateral T wave inversions. QTc 459. CONTINUOUS CARDIAC MONITORING: was ordered and showed a heart rate of 80s-110s bpm in normal sinus rhythm to sinus tachycardia Patient's laboratory studies reviewed. Differential includes Alcohol intoxication, toxicologic, infection, hypo glycemia, electrolyte abnormalities, cardiac sources, intracerebral event, neurologic, trauma, as well as other pathologies. IMPRESSION/MEDICAL DECISION MAKING: Patient's alcohol level is elevated at almost 300. Last drink was this morning. History of alcohol withdrawal including seizure in the past. Denies hallucinations. PTSD issues but no acute SI or HI voiced. Patient blood work here with hypokalemia noted. No significant electrolyte abnormalities noted on EKG. Did have case management with the patient and again not significantly interested in rehab at this point. Denies significant abdominal pain. Does report some nausea and with her alcohol use likely contributing to the hy pokalemia. Magnesium and CBC ordered. Ordered some potassium supplementation (p.o. and IV) as well as mineral supplementation. No evidence of trauma I do not feel she needs additional imaging. Does later complained of a slight headache and given some Tylenol. Given some Valium to help with some withdrawal symptoms she is having. Case management discussed with her and while she is not significant stating inpatient rehab wishes for management of her alcohol withdrawal symptoms and is concerned for possible seizure. Hospitalist contacted given her significant history of seizure with alcohol withdrawal. DIAGNOSIS: Alcohol abuse, alcohol intoxication, hypokalemia DISPOSITION: Hospitalist will evaluate Patient was agreeable with this plan. Past Med/Surg History Medical History Acute alcohol intoxication Alcohol abuse Alcohol dependence Alcohol withdrawal Anxiety with depression Breast lump on left side at 11 o'clock position Hepatic steatosis History of alcohol withdrawal syndrome History of intussusception Hypokalemia Hypokalemia Hypomagnesemia Miscarriage Pancreatitis PTSD (post-traumatic stress disorder) Reflux gastritis Tension headache Thrombocytopenia Transaminitis Surgical History H/O foot surgery Previous section S/P dilation and curettage Family History Mother Depression Anxiety Brother Depression Anxiety Denies family history of Ovarian cancer Prostate cancer Diabetes Myocardial infarction Breast cancer Colorectal cancer Hypertension Social History Smoking Status: Never smoker Second Hand Exposure: No; Do You Dip or Chew Tobacco: No; Hx Alcohol Use: Yes Alcohol type: hard liquor Hx Substance Use: No Preferred Language: Luxembourgish Communication Ability: Effective Visual Impairment: No Limitations Hearing Ability: Normal Title Searcher Required: No Beliefs That Will Affect Care: None marital status: Current Living Situation: Alone Current Living Situation Comment: with parents and her son 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[employer] How many Children do You have: 1 Feels Safe at Home: Yes Childhood Exposure to Second-Hand Smoke: No Diet: regular Dental Care, Regularly: Yes Physical Activity Frequency: 5-6 Times per Week Seatbelt Use: always Sunscreen Use: Yes Assistive Devices: None Allergies Allergies Allergy/AdvReac Type Severity Reaction Status Date / Time lactose Allergy Intermediate Gastrointestinal Verified 09/02/22 22:39 Upset Home Meds Home Medications Medication Instructions Recorded Confirmed prazosin 1 mg capsule 3 mg PO HS 06/08/21 09/02/22 cyclobenzaprine 10 mg tablet 10 mg PO BID 12/09/21 09/02/22 duloxetine 30 mg capsule,delayed 30 mg PO QAM 01/15/22 09/02/22 release mirtazapine 15 mg tablet 15 mg PO HS 01/15/22 09/02/22 linaclotide 145 mcg capsule 145 mcg PO DAILY 04/21/22 09/02/22 (Linzess) duloxetine 60 mg capsule,delayed 60 mg PO QAM 04/29/22 09/02/22 release buspirone 7.5 mg tablet 7.5 mg PO TID 05/23/22 09/02/22 gabapentin 300 mg capsule 300 mg PO TID 05/23/22 09/02/22 prenat.vits,juana,[id number]-orgv-[id number] 1 tab PO DAILY 05/23/22 09/02/22 acetaminophen 325 mg tablet 650 mg PO BID PRN Fever Or Pain 06/25/22 09/02/22 (Tylenol) propranolol 10 mg tablet 10 mg PO AMHS 06/25/22 09/02/22 Previous Rx's Medication Instructions Recorded metoprolol tartrate 25 mg tablet 25 mg PO BID #60 tabs 05/24/22 Results & Data (ED) Vital Signs Vital Signs - 24 hr 09/02/22 20:08 09/02/22 21:12 09/02/22 21:07 Temperature 36.6 C Temperature Source Temporal Artery Scan Pulse Rate 112 H 99 H Respiratory Rate 18 Respiratory Effort / Characteristics Non-Labored Spontaneous Respiratory Depth Normal Blood Pressure 140/88 Blood Pressure Mean 105 Blood Pressure Position Sitting Pulse Oximetry 99 100 Oxygen Delivery Method Room Air Room Air Sepsis Recent Fever Within 48 Hours No Sepsis New/Unexplained Change in Mental Status N/A Sepsis Action Taken by Nursing No Action Required 09/02/22 21:31 09/02/22 23:01 Temperature Temperature Source Pulse Rate 98 H 86 Respiratory Rate 24 18 Respiratory Effort / Characteristics Respiratory Depth Blood Pressure 129/98 113/77 Blood Pressure Mean 108 89 Blood Pressure Position Pulse Oximetry 97 Oxygen Delivery Method Sepsis Recent Fever Within 48 Hours Sepsis New/Unexplained Change in Mental Status Sepsis Action Taken by Nursing Laboratory Data 09/02/22 20:30 Lab Results 09/02/22 09/02/22 09/02/22 Range/Units 20:30 20:30 20:30 WBC (4.8-10.8) K/ul RBC (4.20-5.40) M/uL Hgb (12.0-16.0) g/dl Hct (37.0-47.0) % MCV (80.0-100.0) fL MCH (25.0-34.0) pg MCHC (32.0-36.0) g/dL RDW Std Deviation (36.4-46.3) fL RDW Coeff of Dallin (11.5-14.5) % Plt Count (130-400) K/uL MPV (9.4-12.4) fL Neutrophils % (Manual) % Lymphocytes % (Manual) % Monocytes % (Manual) % Eosinophils % (Manual) % Neutrophils # (Manual) (1.40-6.50) K/uL Total Absolute Neuts (1.4-6.5) K/uL Lymphocytes # (Manual) (1.2-3.4) K/uL Total Abs Lymphocytes (1.2-3.4) K/uL Monocytes # (Manual) (0.11-0.59) K/uL Eosinophils # (Manual) (0-0.50) K/uL Large Granular Lymphs % # Lrg Granular Lymphs K/uL RBC Morphology Sodium 142 (136-145) mmol/L Potassium 2.8 L (3.5-5.1) mmol/L Chloride 101 (98-107) mmol/L Carbon Dioxide 31 (21-32) mmol/L Anion Gap 10 (3-11) BUN 7 (6-23) mg/dl Creatinine 0.73 (0.6-1.2) mg/dl Est Cr Clr Drug Dosing 120.6 ml/min Est GFR ( Amer) 121.1 ml/min Est GFR (Non-Af Amer) 104.5 ml/min BUN/Creatinine Ratio 9.6 L (10-20) Glucose 85 (70-99(Fasting)) mg/dl Calcium 8.8 (8.6-10.3) mg/dl Magnesium 1.7 (1.7-2.4) mg/dl Total Bilirubin 0.2 (0.2-1.0) mg/dl Direct Bilirubin 0.1 (0-0.2) mg/dl AST 33 (13-39) U/L ALT 18 (7-52) U/L Alkaline Phosphatase 55 (34-104) U/L Total Protein 7.0 (6.0-8.3) gm/dl Albumin 4.1 (3.4-5.0) gm/dl HCG, Qual Negative (Negative) Urine Color Urine Appearance (Clear) Urine pH (4.5-7.5) Ur Specific [place] (1.000-1.030) Urine Protein (Negative) Urine Glucose (UA) (Negative) Urine Ketones (Negative) Urine Blood (Negative) Urine Nitrite (Negative) Urine Bilirubin (Negative) Urine Urobilinogen (Negative) Ur Leukocyte Esterase (Negative) Urine RBC (0-4) /hpf Urine WBC (0-5) /hpf Ur Epithelial Cells (0-5) /lpf Urine Bacteria (Negative) Ethyl Alcohol mg/dL 299.7 H (<10.0) mg/dl SARS-CoV-2, RNA, NAAT (NEGATIVE) 09/02/22 09/02/22 09/03/22 Range/Units 21:10 22:48 00:05 WBC 9.12 (4.8-10.8) K/ul RBC 4.00 L (4.20-5.40) M/uL Hgb 12.5 (12.0-16.0) g/dl Hct 35.4 L (37.0-47.0) % MCV 88.5 (80.0-100.0) fL MCH 31.3 (25.0-34.0) pg MCHC 35.3 (32.0-36.0) g/dL RDW Std Deviation 41.2 (36.4-46.3) fL RDW Coeff of Dallin 12.7 (11.5-14.5) % Plt Count 313 (130-400) K/uL MPV 9.9 (9.4-12.4) fL Neutrophils % (Manual) 25 % Lymphocytes % (Manual) 51 % Monocytes % (Manual) 7 % Eosinophils % (Manual) 2 % Neutrophils # (Manual) 2.28 (1.40-6.50) K/uL Total Absolute Neuts 2.28 (1.4-6.5) K/uL Lymphocytes # (Manual) 4.65 H (1.2-3.4) K/uL Total Abs Lymphocytes 6.02 H (1.2-3.4) K/uL Monocytes # (Manual) 0.64 H (0.11-0.59) K/uL Eosinophils # (Manual) 0.18 (0-0.50) K/uL Large Granular Lymphs 15 % # Lrg Granular Lymphs 1.37 K/uL RBC Morphology Unremarkable Sodium (136-145) mmol/L Potassium (3.5-5.1) mmol/L Chloride (98-107) mmol/L Carbon Dioxide (21-32) mmol/L Anion Gap (3-11) BUN (6-23) mg/dl Creatinine (0.6-1.2) mg/dl Est Cr Clr Drug Dosing ml/min Est GFR ( Amer) ml/min Est GFR (Non-Af Amer) ml/min BUN/Creatinine Ratio (10-20) Glucose (70-99(Fasting)) mg/dl Calcium (8.6-10.3) mg/dl Magnesium (1.7-2.4) mg/dl Total Bilirubin (0.2-1.0) mg/dl Direct Bilirubin (0-0.2) mg/dl AST (13-39) U/L ALT (7-52) U/L Alkaline Phosphatase (34-104) U/L Total Protein (6.0-8.3) gm/dl Albumin (3.4-5.0) gm/dl HCG, Qual (Negative) Urine Color Yellow Urine Appearance Slightly Cloudy (Clear) Urine pH 6.0 (4.5-7.5) Ur Specific [place] 1.025 (1.000-1.030) Urine Protein 1+ H (Negative) Urine Glucose (UA) Negative (Negative) Urine Ketones Negative (Negative) Urine Blood Trace-lysed H (Negative) Urine Nitrite Negative (Negative) Urine Bilirubin Negative (Negative) Urine Urobilinogen Negative (Negative) Ur Leukocyte Esterase Negative (Negative) Urine RBC 0-4 (0-4) /hpf Urine WBC 0-5 (0-5) /hpf Ur Epithelial Cells >30 H (0-5) /lpf Urine Bacteria Negative (Negative) Ethyl Alcohol mg/dL (<10.0) mg/dl SARS-CoV-2, RNA, NAAT NEGATIVE (NEGATIVE) Administered Medications Magnesium Sulfate/Dextrose (Magnesium Sulfate / D5w) 1 gm in 100 mls @ 50 mls/hr IV Q2H JOSE F Stop: 09/03/22 04:44 Last Admin: 09/03/22 00:44 Dose: 50 mls/hr Documented By: SARBJIT Discontinued Medications Acetaminophen (Acetaminophen 325 Mg Tab) 650 mg PO NOW STA Stop: 09/02/22 23:55 Last Admin: 09/03/22 00:02 Dose: 650 mg Documented By: SARBJIT Diazepam (Diazepam 5 Mg/Ml Inj 10ml Vial) 5 mg IV NOW STA Stop: 09/02/22 23:26 Last Admin: 09/02/22 23:43 Dose: 5 mg Documented By: SARBJIT Potassium Chloride (K Ottoniel / Wtr) 10 meq in 100 mls @ 100 mls/hr IV ONE ONE Stop: 09/02/22 22:38 Last Infusion: 09/03/22 00:08 Dose: 0 mls/hr Documented By: Admin: 09/02/22 21:54 Dose: 100 mls/hr Documented By: SARBJIT Multivitamins/Minerals (Cerovite Adv Formula Tab) 1 tab PO ONCE ONE Stop: 09/02/22 21:41 Last Admin: 09/02/22 21:54 Dose: 1 tab Documented By: SARBJIT Potassium Chloride (Potassium Chloride Crtab 20 Meq Tabcr) 40 meq PO NOW STA Stop: 09/02/22 21:40 Last Admin: 09/02/22 21:54 Dose: 40 meq Documented By: SARBJIT Discharge Plan Visit Data Chief Complaint: Detox Request Stated Complaint: ALCOHOL WITHDRAWL ED Provider: Wilbur Patton Discharge Problem: Alcohol use disorder, Hypokalemia Patient Disposition: Being Evaluated by Hospitalist Forms Stand Alone Forms: [facility], Suicide Prevention Resources Prescriptions Prescriptions: No Action duloxetine 60 mg capsule,delayed release(DR/EC) 60 mg PO QAM duloxetine 30 mg capsule,delayed release(DR/EC) 30 mg PO QAM Rx Instructions: TOTAL DOSE 90 MG--TAKES WITH 60 MG CAP. mirtazapine 15 mg tablet 15 mg PO HS prazosin 1 mg capsule 3 mg PO HS Linzess 145 mcg capsule 145 mcg PO DAILY buspirone 7.5 mg tablet 7.5 mg PO TID gabapentin 300 mg capsule 300 mg PO TID prenat.vits,juana,[id number] Tablet 1 tab PO DAILY metoprolol tartrate 25 mg Tablet 25 mg PO BID Qty: 60 0RF acetaminophen [Tylenol] 325 mg tablet 650 mg PO BID PRN (Reason: Fever Or Pain) propranolol 10 mg tablet 10 mg PO AMHS cyclobenzaprine 10 mg tablet 10 mg PO BID Referrals Referrals: Alicia Mcgee MD [Primary Care Provider] -
[2022-09-02 22:37] LABS: Albumin Level 4.1 gm/dl (3.4-5.0); Bilirubin Direct 0.1 mg/dl (0-0.2); Bilirubin,Total 0.2 mg/dl (0.2-1.0); Magnesium 1.7 mg/dl (1.7-2.4)
[2022-09-02 23:01] LABS: Hematocrit (blood only) 35.4 % (37.0-47.0); Hemoglobin 12.5 g/dl (12.0-16.0); Mean Corpuscular Hemoglobin 31.3 pg (25.0-34.0); Mean Corpuscular Hgb Conc 35.3 g/dL (32.0-36.0); Mean Corpuscular Volume 88.5 fL (80.0-100.0); Mean Platelet Volume 9.9 fL (9.4-12.4); Platelet Count 313 K/uL (130-400); RDW Coefficient of Variation 12.7 % (11.5-14.5); RDW Standard Deviation 41.2 fL (36.4-46.3); White Blood Count 9.12 K/ul (4.8-10.8)
[2022-09-02] MEDS ORDERED: ACETAMINOPHEN 325 MG TAB PO STA (23:54)
[2022-09-03 00:03] LABS: ALC (manual) 6.02 K/uL (1.2-3.4); ANC (manual) 2.28 K/uL (1.4-6.5); Eosinophils # (manual) 0.18 K/uL (0-0.50); Eosinophils % (manual) 2 %; Large Granular Lymph # (manua 1.37 K/uL; Large Granular Lymph % (manual) 15 %; Lymphocytes # (manual) 4.65 K/uL (1.2-3.4); Lymphocytes % (manual) 51 %; Monocytes # (manual) 0.64 K/uL (0.11-0.59); Monocytes % (manual) 7 %; Neutrophils # (manual) 2.28 K/uL (1.40-6.50); Neutrophils % (manual) 25 %; RBC Morphology Unremarkable
--- NOTE | 2022-09-03 00:22 | History & Physical Report ---
Date of Service September 03, 2022 Assessment & Plan (1) MDD (major depressive disorder): (2) Anxiety: (3) Alcohol withdrawal syndrome: (4) GERD (gastroesophageal reflux disease): (5) Anxiety with depression: (6) PTSD (post-traumatic stress disorder): (7) Hypokalemia: (8) Hypomagnesemia: (9) Hepatic steatosis: Plan Alcohol withdrawal syndrome/alcohol abuse disorder- Alcohol level 299.7 on admission Patient expresses a desire to quit drinking JAMES S protocol with IV lorazepam Thiamine 100 mg p.o. daily Folic acid 1 mg p.o. daily NSS + KCl 20 mEq at 125 mils per hour Hypokalemia/hypomagnesemia- Magnesium sulfate 2 g IV Given Klor-Con 40 mEq p.o. and potassium chloride 10 mEq IV by the ED NSS + KCl 20 mEq at 125 mils per hour Repeat laboratories in a.m. Major depressive disorder/anxiety with depression/PTSD- Continue buspirone, cyclobenzaprine, duloxetine, gabapentin, mirtazapine, prazosin and propranolol History of Present Illness Chief Complaint: The patient presents to the emergency department due to concerns regarding early alcohol withdrawal symptoms, with a desire to stop drinking Primary Care Provider: Alicia Mcgee MD The patient is a 37-year-old female with a past medical history including MDD, anxiety, alcohol use disorder, history of alcohol withdrawal, GERD, alcohol abuse, reflux esophagitis and hepatic steatosis. The patient has been admitted several times over the past few years for similar symptoms, and has unfortunately had several intervals of resuming alcohol after a brief period of remission. She was offered rehab by case management, however, declined the offer. Significant abnormal laboratories: Potassium 2.8, alcohol 299.7, magnesium 1.7. Allergies Allergy/AdvReac Type Severity Reaction Status Date / Time lactose Allergy Intermediate Gastrointestinal Verified 09/02/22 22:39 Upset Home Medications Medication Instructions Recorded Confirmed Type prazosin 1 mg capsule 3 mg PO HS 06/08/21 09/02/22 History cyclobenzaprine 10 mg tablet 10 mg PO BID 12/09/21 09/02/22 History duloxetine 30 mg capsule,delayed 30 mg PO QAM 01/15/22 09/02/22 History release mirtazapine 15 mg tablet 15 mg PO HS 01/15/22 09/02/22 History linaclotide 145 mcg capsule 145 mcg PO DAILY 04/21/22 09/02/22 History (Linzess) duloxetine 60 mg capsule,delayed 60 mg PO QAM 04/29/22 09/02/22 History release buspirone 7.5 mg tablet 7.5 mg PO TID 05/23/22 09/02/22 History gabapentin 300 mg capsule 300 mg PO TID 05/23/22 09/02/22 History prenat.vits,juana,[id number] 1 tab PO DAILY 05/23/22 09/02/22 History metoprolol tartrate 25 mg tablet 25 mg PO BID #60 tabs 05/24/22 09/02/22 Rx acetaminophen 325 mg tablet 650 mg PO BID PRN Fever Or Pain 06/25/22 09/02/22 History (Tylenol) propranolol 10 mg tablet 10 mg PO AMHS 06/25/22 09/02/22 History Past Med/Surg History Medical History (Updated 09/03/22 @ 04:37 by Nicolas Lao MD) Acute alcohol intoxication Alcohol abuse Alcohol dependence Alcohol withdrawal Alcoholic intoxication Anxiety with depression Breast lump on left side at 11 o'clock position Chest pain at rest Hepatic steatosis History of alcohol withdrawal syndrome History of intussusception Hypokalemia Hypokalemia Hypomagnesemia Miscarriage Pancreatitis PTSD (post-traumatic stress disorder) Reflux gastritis Tension headache Thrombocytopenia Transaminitis Surgical History H/O foot surgery Previous section S/P dilation and curettage Family History Mother Depression Anxiety Brother Depression Anxiety Denies family history of Ovarian cancer Prostate cancer Diabetes Myocardial infarction Breast cancer Colorectal cancer Hypertension Social History Smoking Status: Never smoker Second Hand Exposure: No; Do You Dip or Chew Tobacco: No; Hx Alcohol Use: Yes Alcohol type: hard liquor Hx Substance Use: No Preferred Language: Bulgarian Communication Ability: Effective Visual Impairment: No Limitations Hearing Ability: Normal 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: No Beliefs That Will Affect Care: None marital status: Current Living Situation: Family Current Living Situation Comment: lives with mom and son 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[employer] IN [employer] How many Children do You have: 1 Feels Safe at Home: Yes Childhood Exposure to Second-Hand Smoke: No Diet: regular Dental Care, Regularly: Yes Physical Activity Frequency: 5-6 Times per Week Seatbelt Use: always Sunscreen Use: Yes Assistive Devices: None Review of Systems Review of Systems: The patient denies chest pain, palpitations, shortness of breath, dyspnea on exertion, cough, lower extremity swelling, sore throat, fevers, chills, sweats, nausea, vomiting, diarrhea , constipation, abdominal pain, pelvic pain, blood in urine or stool, dysuria, urinary frequency or urgency, lightheadedness, dizziness, headache, memory loss, loss of consciousness, rash, abnormal bruising or bleeding, imbalance, focal or generalized weakness, numbness or tingling in arms or legs, generalized arthralgias or myalgias, back or neck pain, or night sweats. The review of systems is otherwise negative other than for that already noted above, and at least 10 systems have been reviewed. Physical Exam Physical Exam: The patient is awake, alert and oriented 3, well developed and well nourished, normocephalic and atraumatic, lying in bed and in no acute distress. HEENT--PERRL, EOMI, mucous membranes and oropharynx dry. Neck--supple. No JVD. No bruits. Thyroid normal, trachea midline, no adenopathy. Heart--normal S1 and S2. No murmurs, rubs or gallops. Lungs--clear bilaterally, no respiratory distress, no accessory muscle use. Abdomen--normal bowel sounds and soft. Nontender. Nondistended, no hernias or masses, no organomegaly. Extremities--no cyanosis or clubbing. No edema. There are good distal pulses b/l. Dermatologic--normal skin turgor, normal color, no abnormal lymph nodes, no rash. Neurologic--cranial nerves II through XII grossly intact. Generalized shakes noted, primarily upper extremity bilaterally Rheumatologic--normal range of motion. Psychiatric--normal affect. Results & Data Results & Data Vital Signs (Past 12 Hours) Vital Signs Temp Pulse Resp BP Pulse Ox O2 Del Method 09/02/22 23:01 86 18 113/77 97 09/02/22 21:31 98 H 24 129/98 09/02/22 21:07 99 H 09/02/22 21:12 100 Room Air 09/02/22 20:08 36.6 C 112 H 18 140/88 99 Room Air Laboratory Results Laboratory Results WBC 9.12 K/ul (4.8-10.8) 09/02/22 22:48 RBC 4.00 M/uL (4.20-5.40) L 09/02/22 22:48 Hgb 12.5 g/dl (12.0-16.0) 09/02/22 22:48 Hct 35.4 % (37.0-47.0) L 09/02/22 22:48 MCV 88.5 fL (80.0-100.0) 09/02/22 22:48 MCH 31.3 pg (25.0-34.0) 09/02/22 22:48 MCHC 35.3 g/dL (32.0-36.0) 09/02/22 22:48 RDW Std Deviation 41.2 fL (36.4-46.3) 09/02/22 22:48 RDW Coeff of Dallin 12.7 % (11.5-14.5) 09/02/22 22:48 Plt Count 313 K/uL (130-400) 09/02/22 22:48 MPV 9.9 fL (9.4-12.4) 09/02/22 22:48 Neutrophils % (Manual) 25 % 09/02/22 22:48 Lymphocytes % (Manual) 51 % 09/02/22 22:48 Monocytes % (Manual) 7 % 09/02/22 22:48 Eosinophils % (Manual) 2 % 09/02/22 22:48 Neutrophils # (Manual) 2.28 K/uL (1.40-6.50) 09/02/22 22:48 Total Absolute Neuts 2.28 K/uL (1.4-6.5) 09/02/22 22:48 Lymphocytes # (Manual) 4.65 K/uL (1.2-3.4) H 09/02/22 22:48 Total Abs Lymphocytes 6.02 K/uL (1.2-3.4) H 09/02/22 22:48 Monocytes # (Manual) 0.64 K/uL (0.11-0.59) H 09/02/22 22:48 Eosinophils # (Manual) 0.18 K/uL (0-0.50) 09/02/22 22:48 Large Granular Lymphs 15 % 09/02/22 22:48 # Lrg Granular Lymphs 1.37 K/uL 09/02/22 22:48 RBC Morphology Unremarkable 09/02/22 22:48 Sodium 142 mmol/L (136-145) 09/02/22 20:30 Potassium 2.8 mmol/L (3.5-5.1) L 09/02/22 20:30 Chloride 101 mmol/L (98-107) 09/02/22 20:30 Carbon Dioxide 31 mmol/L (21-32) 09/02/22 20:30 Anion Gap 10 (3-11) 09/02/22 20:30 BUN 7 mg/dl (6-23) 09/02/22 20:30 Creatinine 0.73 mg/dl (0.6-1.2) 09/02/22 20:30 Est Cr Clr Drug Dosing 120.6 ml/min 09/02/22 20:30 Est GFR ( Amer) 121.1 ml/min 09/02/22 20:30 Est GFR (Non-Af Amer) 104.5 ml/min 09/02/22 20:30 BUN/Creatinine Ratio 9.6 (10-20) L 09/02/22 20:30 Glucose 85 mg/dl (70-99(Fasting)) 09/02/22 20:30 Calcium 8.8 mg/dl (8.6-10.3) 09/02/22 20:30 Magnesium 1.7 mg/dl (1.7-2.4) 09/02/22 20:30 Total Bilirubin 0.2 mg/dl (0.2-1.0) 09/02/22 20:30 Direct Bilirubin 0.1 mg/dl (0-0.2) 09/02/22 20:30 AST 33 U/L (13-39) 09/02/22 20:30 ALT 18 U/L (7-52) 09/02/22 20:30 Alkaline Phosphatase 55 U/L (34-104) 09/02/22 20:30 Total Protein 7.0 gm/dl (6.0-8.3) 09/02/22 20:30 Albumin 4.1 gm/dl (3.4-5.0) 09/02/22 20:30 HCG, Qual Negative (Negative) 09/02/22 20:30 Urine Color Yellow 09/02/22 21:10 Urine Appearance Slightly Cloudy (Clear) 09/02/22 21:10 Urine pH 6.0 (4.5-7.5) 09/02/22 21:10 Ur Specific [place] 1.025 (1.000-1.030) 09/02/22 21:10 Urine Protein 1+ (Negative) H 09/02/22 21:10 Urine Glucose (UA) Negative (Negative) 09/02/22 21:10 Urine Ketones Negative (Negative) 09/02/22 21:10 Urine Blood Trace-lysed (Negative) H 09/02/22 21:10 Urine Nitrite Negative (Negative) 09/02/22 21:10 Urine Bilirubin Negative (Negative) 09/02/22 21:10 Urine Urobilinogen Negative (Negative) 09/02/22 21:10 Ur Leukocyte Esterase Negative (Negative) 09/02/22 21:10 Urine RBC 0-4 /hpf (0-4) 09/02/22 21:10 Urine WBC 0-5 /hpf (0-5) 09/02/22 21:10 Ur Epithelial Cells >30 /lpf (0-5) H 09/02/22 21:10 Urine Bacteria Negative (Negative) 09/02/22 21:10 Ethyl Alcohol mg/dL 299.7 mg/dl (<10.0) H 09/02/22 20:30 SARS-CoV-2, RNA, NAAT NEGATIVE (NEGATIVE) 09/03/22 00:05 Code Status & VTE Plan Code Status Full code VTE Prophylaxis Plan VTE Prophylaxis will be ordered: Yes PG Care Time/CCT Total # of Minutes Spent Total Time Spent with Patient: Total time spent is greater than 50% in coordination of care (as documented) at patient's floor/unit and/or counseling patient: Coding Level of Care Code 37180 INT INP/OBS CARE 3/75MIN Diagnoses MDD (major depressive disorder) F32.9 Active/Remission status: remission status unspecified Major depression recurrence: unspecified whether recurrent Anxiety F41.9 Alcohol withdrawal syndrome F10.939 Complication of substance-induced condition: with unspecified complication GERD (gastroesophageal reflux disease) K21.9 Anxiety with depression F41.8 PTSD (post-traumatic stress disorder) F43.10 Hypokalemia E87.6 Hypomagnesemia E83.42 Hepatic steatosis K76.0 (1) MDD (major depressive disorder) Active/Remission status: remission status unspecified Major depression recurrence: unspecified whether recurrent Qualified Code(s): F32.9 - Major depressive disorder, single episode, unspecified (3) Alcohol withdrawal syndrome Complication of substance-induced condition: with unspecified complication Qualified Code(s): F10.939 - Alcohol use, unspecified with withdrawal, unspecified
[2022-09-03] MEDS: MAGNESIUM SULFATE / D5W 1 GM/100 ML BAG IV SCH ×2 (00:44→03:43)
[2022-09-03] MEDS ORDERED: LORazepam 2 MG/1 ML VIAL IV PRN ×2 (01:23)
[2022-09-03] MEDS ORDERED: ACETAMINOPHEN 325 MG TAB PO PRN (01:23)
[2022-09-03] MEDS ORDERED: ONDANSETRON INJ 2 MG/ML 2 ML VIAL IV PRN (01:23)
[2022-09-03] MEDS ORDERED: Ativan IV Alcohol Withdrawal--Active Protocol IV PRN (01:23)
[2022-09-03] MEDS: NSS + 20MEQ KCL 20 MEQ/1,000 ML BAG IV SCH ×3 (02:27→17:40)
[2022-09-03] MEDS ORDERED: PRAZOSIN HCL 1 MG CAP PO ONE (02:30)
[2022-09-03] MEDS ORDERED: MIRTAZAPINE TAB 15 MG TAB PO ONE (02:30)
[2022-09-03] MEDS: LORazepam 2 MG/1 ML VIAL IV PRN ×2 (03:43→10:01)
[2022-09-03 07:49] LABS: Albumin Level 3.3 gm/dl (3.4-5.0); Bilirubin,Total 0.5 mg/dl (0.2-1.0); Calcium 8.1 mg/dl (8.6-10.3); Potassium 3.5 mmol/L (3.5-5.1)
[2022-09-03 07:55] LABS: Albumin Globulin Ratio 1.5 (0.9-2); BUN Creatinine Ratio 10.3 (10-20); Creatinine Clr Calc Pharmacy 125.4 ml/min; Est GFR (African American) 128.6 ml/min; Globulin 2.2 gm/dl (2.5-4.0); Total Protein 5.5 gm/dl (6.0-8.3)
[2022-09-03] MEDS: DULoxetine HCL 30 MG CAP PO SCH (08:01)
[2022-09-03] MEDS: FOLIC ACID 1 MG TAB PO SCH (08:02)
[2022-09-03] MEDS: PROPRANOLOL HCL 10 MG TAB PO SCH ×2 (08:02→20:27)
[2022-09-03] MEDS: THIAMINE HCL 100 MG TAB PO SCH (08:02)
[2022-09-03] MEDS: busPIRone 7.5 MG TAB PO SCH ×3 (08:02→20:21)
[2022-09-03] MEDS: PRENATAL VITAMIN 1 TAB PO SCH (08:02)
[2022-09-03] MEDS: GABAPENTIN 300 MG CAP PO SCH ×3 (08:02→20:22)
[2022-09-03] MEDS: DULoxetine HCL 60 MG CAP PO SCH (08:02)
[2022-09-03] MEDS: CYCLOBENZAPRINE HCL 10 MG TAB PO SCH ×2 (08:03→20:20)
--- NOTE | 2022-09-03 13:13 | Communication Note ---
Date of Service: September 03, 2022 Please refer to the H&P dictated earlier this morning for details of presentation on admission. This is a patient with alcoholism, history of recurrent alcohol withdrawal leading to recurrent admissions, well-known to our service at [facility], presents again due to early alcohol withdrawal symptoms and a desire to stop drinking. She was offered alcohol rehab in the past which she had declined. She comes here with hypokalemia and symptoms of mild alcohol withdrawal. Her potassium is repleted. She continues on the alcohol withdrawal protocol that was initiated overnight.
[2022-09-03] MEDS ORDERED: PRAZOSIN HCL 1 MG CAP PO SCH (21:00)
[2022-09-03] MEDS ORDERED: MIRTAZAPINE TAB 15 MG TAB PO SCH (21:00)
[2022-09-04] MEDS: NSS + 20MEQ KCL 20 MEQ/1,000 ML BAG IV SCH ×2 (01:44→09:11)
[2022-09-04 07:41] LABS: Bilirubin,Total 0.8 mg/dl (0.2-1.0); Calcium 8.1 mg/dl (8.6-10.3); Magnesium 1.8 mg/dl (1.7-2.4); Potassium 3.8 mmol/L (3.5-5.1)
[2022-09-04 07:47] LABS: Albumin Globulin Ratio 1.5 (0.9-2); BUN Creatinine Ratio 9.7 (10-20); Creatinine Clr Calc Pharmacy 137.5 ml/min; Est GFR (African American) 132.6 ml/min; Est GFR (Non-African American) 114.4 ml/min
[2022-09-04] MEDS: busPIRone 7.5 MG TAB PO SCH (08:27)
[2022-09-04] MEDS: PROPRANOLOL HCL 10 MG TAB PO SCH (08:27)
[2022-09-04] MEDS: CYCLOBENZAPRINE HCL 10 MG TAB PO SCH (08:27)
[2022-09-04] MEDS: GABAPENTIN 300 MG CAP PO SCH (08:27)
[2022-09-04] MEDS: DULoxetine HCL 30 MG CAP PO SCH (08:28)
[2022-09-04] MEDS: FOLIC ACID 1 MG TAB PO SCH (08:28)
[2022-09-04] MEDS: DULoxetine HCL 60 MG CAP PO SCH (08:28)
[2022-09-04] MEDS: THIAMINE HCL 100 MG TAB PO SCH (08:28)
[2022-09-04] MEDS: PRENATAL VITAMIN 1 TAB PO SCH (08:28)
--- NOTE | 2022-09-04 11:26 | Discharge Summary ---
Discharge Summary Date of Service September 04, 2022 Admission HPI Per Admitting Provider The patient is a 37-year-old female with a past medical history including MDD, anxiety, alcohol use disorder, history of alcohol withdrawal, GERD, alcohol abuse, reflux esophagitis and hepatic steatosis. The patient has been admitted several times over the past few years for similar symptoms, and has unfortunately had several intervals of resuming alcohol after a brief period of remission. She was offered rehab by case management, however, declined the offer. Significant abnormal laboratories: Potassium 2.8, alcohol 299.7, magnesium 1.7. Admission Exam Per Admitting Provider The patient is awake, alert and oriented 3, well developed and well nourished, normocephalic and atraumatic, lying in bed and in no acute distress. HEENT--PERRL, EOMI, mucous membranes and oropharynx dry. Neck--supple. No JVD. No bruits. Thyroid normal, trachea midline, no adenopathy. Heart--normal S1 and S2. No murmurs, rubs or gallops. Lungs--clear bilaterally, no respiratory distress, no accessory muscle use. Abdomen--normal bowel sounds and soft. Nontender. Nondistended, no hernias or masses, no organomegaly. Extremities--no cyanosis or clubbing. No edema. There are good distal pulses b/l. Dermatologic--normal skin turgor, normal color, no abnormal lymph nodes, no rash. Neurologic--cranial nerves II through XII grossly intact. Generalized shakes noted, primarily upper extremity bilaterally Rheumatologic--normal range of motion. Psychiatric--normal affect. Principal Dx & Hospital Course #1 = Principal Diagnosis (1) Alcohol withdrawal syndrome: (2) Hypokalemia: (3) Hypomagnesemia: (4) MDD (major depressive disorder): (5) Anxiety: (6) GERD (gastroesophageal reflux disease): (7) Anxiety with depression: (8) PTSD (post-traumatic stress disorder): (9) Hepatic steatosis: Plan Alcohol withdrawal syndrome/alcohol abuse disorder: Alcohol level 299.7 on admission Patient expresses a desire to quit drinking, declines inpatient rehab but does have very good connections with outpatient rehab and is seeking increased counseling JAMES S protocol with IV lorazepam, has not required benzodiazepine in the last 24 hours Thiamine 100 mg p.o. daily and folic acid daily to continue Hypokalemia/hypomagnesemia- In the setting of malnutrition and tea and toast diet secondary to alcohol use Repleted and normal on day of discharge, recommended alcohol use cessation for electrolyte derangements as well Major depressive disorder/anxiety with depression/PTSD- Continue buspirone, cyclobenzaprine, duloxetine, gabapentin, mirtazapine, prazosin and propranolol Applauded patient for seeking counseling for PTSD, seeking trauma therapy as she reports that alcohol is maladaptive response to treat that trauma Can continue home Linzess for IBS Discharge Exam Constitutional WD/WN, vitals as above Psychiatric A+Ox3, euthymic affect Updated Medication List Medication Instructions Recorded Confirmed Type prazosin 1 mg capsule 3 mg PO HS 06/08/21 09/02/22 History cyclobenzaprine 10 mg tablet 10 mg PO BID 12/09/21 09/02/22 History duloxetine 30 mg capsule,delayed 30 mg PO QAM 01/15/22 09/02/22 History release mirtazapine 15 mg tablet 15 mg PO HS 01/15/22 09/02/22 History linaclotide 145 mcg capsule 145 mcg PO DAILY 04/21/22 09/02/22 History (Linzess) duloxetine 60 mg capsule,delayed 60 mg PO QAM 04/29/22 09/02/22 History release buspirone 7.5 mg tablet 7.5 mg PO TID 05/23/22 09/02/22 History gabapentin 300 mg capsule 300 mg PO TID 05/23/22 09/02/22 History prenat.vits,juana,vqb-gbno-[id number] 1 tab PO DAILY 05/23/22 09/02/22 History acetaminophen 325 mg tablet 650 mg PO BID PRN Fever Or Pain 06/25/22 09/02/22 History (Tylenol) propranolol 10 mg tablet 10 mg PO AMHS 06/25/22 09/02/22 History folic acid 1 mg tablet 1 mg PO QAM 30 days #30 tabs 09/04/22 Rx thiamine HCl (vitamin B1) 100 mg 100 mg PO QAM 30 days #30 tabs 09/04/22 Rx tablet Hospital Stay Data Consultations 09/02/22 23:35 ED Decision to Admit Stat Pending Results Patient Have Any Pending Studies at Discharge: No Discharge Instructions Given to Patient (Per Discharging Provider) You were admitted to the hospital for evaluation and management of alcohol withdrawal. Due to alcohol use, your potassium levels were severely low. This is an important electrolyte that can become low with alcohol use. With extremely low potassium, your heart can be affected and you can have arrhythmia. Fortunately, you did not have evidence of this. We monitored you for seizure activity, monitored and replaced your electrolytes, and treated your alcohol withdrawal. You were felt to be safe for home with the following recommendations: We recommend continuing outpatient therapy for D&A, Psych at [facility] in [place]. If you change your mind, and want inpatient rehab in your path to becoming alcohol free, please contact your outpatient rehab providers and/or your family doctor to help you with this. You were prescribed folic acid and thiamine. These vitamins are for vitamin deficiencies due to alcohol use. They are daily pills, and were sent to your pharmacy. If you have any questions, or concerns about your medical care or about your safety, please seek urgent medical attention. Total Time Total Time Spent Total Time Spent (In Minutes): 35 minutes Coding Level of Care Code 55831 INP/OBS DISCH >30 MIN Diagnoses Alcohol withdrawal syndrome F10.939 Complication of substance-induced condition: with unspecified complication Hypokalemia E87.6 Hypomagnesemia E83.42 MDD (major depressive disorder) F32.9 Active/Remission status: remission status unspecified Major depression recurrence: unspecified whether recurrent Anxiety F41.9 GERD (gastroesophageal reflux disease) K21.9 Anxiety with depression F41.8 PTSD (post-traumatic stress disorder) F43.10 Hepatic steatosis K76.0
--- NOTE | 2022-09-04 22:56 | Electrocardiogram Report ---
Test Reason : Blood Pressure : / mmHG Vent. Rate : 099 BPM Atrial Rate : 099 BPM P-R Int : 126 ms QRS Dur : 084 ms QT Int : 358 ms P-R-T Axes : 033 019 -55 degrees QTc Int : 459 ms Normal sinus rhythm T wave abnormality, consider anterior ischemia Abnormal ECG When compared with ECG of 26-JUN-2022 11:52, Inverted T waves have replaced nonspecific T wave abnormality in Anterolateral leads Confirmed by Enoc Lomax ([id number]) on 09/04/2022 10:56:18 PM Referred By: REFERRED SELF Confirmed By:Enoc Lomax
== END 2022-09-04 13:26 | disposition home or self-care (01) | DRG 897 ==
LOC: ED 20:03 → 2E 09-03 00:22 → SUATTDRO 09-03 00:22 → 2E 09-03 01:08

== ENCOUNTER 2022-09-08 20:28 | Inpatient (IN) ==
[2022-09-08] MEDS ORDERED: SODIUM CHLORIDE 0.9% 1000ML 1,000 ML IV SCH (21:45)
--- NOTE | 2022-09-08 22:33 | Emergency Department Note ---
History of Present Illness General Chief complaint: Alcohol Intoxication Stated complaint: ALCOHOL INTOX Time Seen by Provider: 09/08/22 21:24 History of Present Illness This 37-year-old with a history of alcoholism presents to the ER requesting detox for her alcoholism. Patient last drank just prior to arrival. She had over fifth tonight. She has had the shakes and seizures from not drinking before. Patient denies chest pain, dyspnea, abdominal pain, drug use or any other medical complaints. Home Medications Medication Instructions Recorded Confirmed Type prazosin 1 mg capsule 3 mg PO HS 06/08/21 09/02/22 History cyclobenzaprine 10 mg tablet 10 mg PO BID 12/09/21 09/02/22 History duloxetine 30 mg capsule,delayed 30 mg PO QAM 01/15/22 09/02/22 History release mirtazapine 15 mg tablet 15 mg PO HS 01/15/22 09/02/22 History linaclotide 145 mcg capsule 145 mcg PO DAILY 04/21/22 09/02/22 History (Linzess) duloxetine 60 mg capsule,delayed 60 mg PO QAM 04/29/22 09/02/22 History release buspirone 7.5 mg tablet 7.5 mg PO TID 05/23/22 09/02/22 History gabapentin 300 mg capsule 300 mg PO TID 05/23/22 09/02/22 History prenat.vits,juana,rtk-zvcu-mfbrc 1 tab PO DAILY 05/23/22 09/02/22 History acetaminophen 325 mg tablet 650 mg PO BID PRN Fever Or Pain 06/25/22 09/02/22 History (Tylenol) propranolol 10 mg tablet 10 mg PO AMHS 06/25/22 09/02/22 History folic acid 1 mg tablet 1 mg PO QAM 30 days #30 tabs 09/04/22 Rx thiamine HCl (vitamin B1) 100 mg 100 mg PO QAM 30 days #30 tabs 09/04/22 Rx tablet Allergies Allergy/AdvReac Type Severity Reaction Status Date / Time lactose Allergy Intermediate Gastrointestinal Verified 09/02/22 22:39 Upset Past Med/Surg History Medical History Acute alcohol intoxication Alcohol abuse Alcohol dependence Alcohol withdrawal Alcoholic intoxication Anxiety with depression Breast lump on left side at 11 o'clock position Chest pain at rest Hepatic steatosis History of alcohol withdrawal syndrome History of intussusception Hypokalemia Hypokalemia Hypomagnesemia Miscarriage Pancreatitis PTSD (post-traumatic stress disorder) Reflux gastritis Tension headache Thrombocytopenia Transaminitis Surgical History H/O foot surgery Previous section S/P dilation and curettage Family History Mother Depression Anxiety Brother Depression Anxiety Denies family history of Ovarian cancer Prostate cancer Diabetes Myocardial infarction Breast cancer Colorectal cancer Hypertension Social History Smoking Status: Never smoker Second Hand Exposure: No; Do You Dip or Chew Tobacco: No; Hx Alcohol Use: Yes Alcohol type: hard liquor Hx Substance Use: No Preferred Language: Amharic Communication Ability: Effective Visual Impairment: No Limitations Hearing Ability: Normal Top Collar Maker Required: No Beliefs That Will Affect Care: None marital status: Current Living Situation: Family Current Living Situation Comment: lives with mom and son 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[employer] How many Children do You have: 1 Feels Safe at Home: Yes Childhood Exposure to Second-Hand Smoke: No Diet: regular Dental Care, Regularly: Yes Physical Activity Frequency: 5-6 Times per Week Seatbelt Use: always Sunscreen Use: Yes Assistive Devices: None Review of Systems A total of 10 systems reviewed and were otherwise negative Physical Exam Vital Signs Vital Signs - 24 hr 09/08/22 20:30 09/08/22 22:04 Temperature 36.8 C Temperature Source Temporal Artery Scan Pulse Rate 137 H Respiratory Rate 18 Respiratory Effort / Characteristics Non-Labored Spontaneous Respiratory Depth Normal Blood Pressure 134/98 Blood Pressure Mean 110 Pulse Oximetry 97 100 Oxygen Delivery Method Room Air Room Air Sepsis Recent Fever Within 48 Hours No Sepsis New/Unexplained Change in Mental Status No Sepsis Action Taken by Nursing No Action Required PHYSICAL EXAM: VITALS: Vitals are noted on the nurse's note and reviewed by myself. Vital signs stable. GENERAL: White female with EtOH odor, in no acute distress, nondiaphoretic, well-developed well-nourished. The patient is visibly intoxicated. SKIN: The skin was without obvious lacerations, abrasions, or rashes. There is no tenting of the skin. Capillary reflex less than 2 seconds. HEENT: Normocephalic, atraumatic. PERRLA. EOMI. Conjunctiva with mild injection without icterus. Tympanic membranes without erythema or effusion bilaterally no hemotympanum. External auditory canals are clear. Nares patent bilaterally. No epistaxis. Oropharynx without erythema or exudate. Uvula midline. Oral mucosal moist. No lymphadenopathy. Neck is supple without cervical spine tenderness. HEART: Regular rate and rhythm Peripheral pulses 2+. LUNGS: Clear to auscultation bilaterally without wheezes, rales or rhonchi. ABDOMEN: Positive bowel sounds x 4. Normal tympanic percussion. Soft, nontender, without masses or organomegaly. MUSCULOSKELETAL: Gross motor function of the upper and lower extremities intact. NEURO: Patient was alert and oriented to person place and time. Normal sensation to light and sharp touch. No focal neurological deficits. Course Administered Medications Discontinued Medications Sodium Chloride (Nss 1000ml) 1,000 mls @ 999 mls/hr IV .Q1H1M JOSE F Stop: 09/08/22 22:45 Last Admin: 09/08/22 22:16 Dose: 999 mls/hr Documented By: KVNG Medical Decision Making Medical Records Attestation: I reviewed the patient's medical records. Home Medications Current Medication List: was personally reviewed by me Laboratory Data Attestation: I reviewed the patient's lab results. 09/08/22 22:18 09/08/22 22:18 Lab Results 09/08/22 09/08/22 09/08/22 Range/Units 22:10 22:18 22:18 WBC 5.41 (4.8-10.8) K/ul RBC 4.05 L (4.20-5.40) M/uL Hgb 12.7 (12.0-16.0) g/dl Hct 36.4 L (37.0-47.0) % MCV 89.9 (80.0-100.0) fL MCH 31.4 (25.0-34.0) pg MCHC 34.9 (32.0-36.0) g/dL RDW Std Deviation 44.4 (36.4-46.3) fL RDW Coeff of Dallin 13.5 (11.5-14.5) % Plt Count 248 (130-400) K/uL MPV 10.2 (9.4-12.4) fL Immature Gran % (Auto) 0.0 % Neut % (Auto) 29.6 % Lymph % (Auto) 61.9 % Baker % (Auto) 6.3 % Eos % (Auto) 1.5 % Baso % (Auto) 0.7 % Neut # (Auto) 1.60 (1.40-6.50) K/uL Lymph # (Auto) 3.35 (1.2-3.4) K/uL Baker # (Auto) 0.34 (0.11-0.59) K/uL Eos # (Auto) 0.08 (0-0.50) K/uL Baso # (Auto) 0.04 (0-0.2) K/uL Immature Gran # (Auto) 0.00 L (0.01-0.20) K/uL Sodium 144 (136-145) mmol/L Potassium 3.7 (3.5-5.1) mmol/L Chloride 105 (98-107) mmol/L Carbon Dioxide 28 (21-32) mmol/L Anion Gap 11 (3-11) BUN 9 (6-23) mg/dl Creatinine 0.80 (0.6-1.2) mg/dl Est Cr Clr Drug Dosing 110.0 ml/min Est GFR ( Amer) 108.4 ml/min Est GFR (Non-Af Amer) 93.5 ml/min BUN/Creatinine Ratio 11.3 (10-20) Glucose 82 (70-99(Fasting)) mg/dl Calcium 8.9 (8.6-10.3) mg/dl Magnesium 1.8 (1.7-2.4) mg/dl Total Bilirubin 0.2 (0.2-1.0) mg/dl AST 53 H (13-39) U/L ALT 24 (7-52) U/L Alkaline Phosphatase 61 (34-104) U/L Total Creatine Kinase 108 (26-192) U/L Total Protein 7.1 (6.0-8.3) gm/dl Albumin 4.3 (3.4-5.0) gm/dl Globulin 2.8 (2.5-4.0) gm/dl Albumin/Globulin Ratio 1.5 (0.9-2) HCG, Qual (Negative) Salicylates (3.0-30) mg/dl Acetaminophen (10-30) ug/ml Ethyl Alcohol mg/dL (<10.0) mg/dl SARS-CoV-2, RNA, NAAT NEGATIVE (NEGATIVE) 09/08/22 09/08/22 09/08/22 Range/Units 22:18 22:18 22:18 WBC (4.8-10.8) K/ul RBC (4.20-5.40) M/uL Hgb (12.0-16.0) g/dl Hct (37.0-47.0) % MCV (80.0-100.0) fL MCH (25.0-34.0) pg MCHC (32.0-36.0) g/dL RDW Std Deviation (36.4-46.3) fL RDW Coeff of Dallin (11.5-14.5) % Plt Count (130-400) K/uL MPV (9.4-12.4) fL Immature Gran % (Auto) % Neut % (Auto) % Lymph % (Auto) % Baker % (Auto) % Eos % (Auto) % Baso % (Auto) % Neut # (Auto) (1.40-6.50) K/uL Lymph # (Auto) (1.2-3.4) K/uL Baker # (Auto) (0.11-0.59) K/uL Eos # (Auto) (0-0.50) K/uL Baso # (Auto) (0-0.2) K/uL Immature Gran # (Auto) (0.01-0.20) K/uL Sodium (136-145) mmol/L Potassium (3.5-5.1) mmol/L Chloride (98-107) mmol/L Carbon Dioxide (21-32) mmol/L Anion Gap (3-11) BUN (6-23) mg/dl Creatinine (0.6-1.2) mg/dl Est Cr Clr Drug Dosing ml/min Est GFR ( Amer) ml/min Est GFR (Non-Af Amer) ml/min BUN/Creatinine Ratio (10-20) Glucose (70-99(Fasting)) mg/dl Calcium (8.6-10.3) mg/dl Magnesium (1.7-2.4) mg/dl Total Bilirubin (0.2-1.0) mg/dl AST (13-39) U/L ALT (7-52) U/L Alkaline Phosphatase (34-104) U/L Total Creatine Kinase (26-192) U/L Total Protein (6.0-8.3) gm/dl Albumin (3.4-5.0) gm/dl Globulin (2.5-4.0) gm/dl Albumin/Globulin Ratio (0.9-2) HCG, Qual Negative (Negative) Salicylates < 3.0 L (3.0-30) mg/dl Acetaminophen < 3 L (10-30) ug/ml Ethyl Alcohol mg/dL 462.0 H (<10.0) mg/dl SARS-CoV-2, RNA, NAAT (NEGATIVE) Imaging Data Attestation: I personally reviewed and interpreted this imaging study as follows: MDM Narrative Prior records/ancillary studies reviewed. Triage Nursing notes reviewed. Additional history obtained from nursing. The patient's history was concerning for altered mental status and probable overdose. Differential diagnosis: Etiologies such as toxicologic, infection, hypoglycemia, electrolyte abnormalities, cardiac sources, intracerebral event, neurologic, as well as others were entertained. Physical examination: The patient had normal sensorium. No trauma noted. ER treatment provided: IV NSS 1 L bolus Seizure precautions were implemented An order was placed for continuous cardiac monitoring. The monitor shows a rate of 60-1 50 with a sinus rhythm per my interpretation. On reassessment the patient was stable and improving. Diagnostic interpretation by me: ECG: ordered for overdose The electrocardiogram was negative for pathologic change. There was no QRS widening or interval prolongation. EKG: Normal sinus, normal intervals, T wave inversions in the anteroseptal leads unchanged from prior, impression sinus tachycardia T wave inversions anteroseptal leads independent interpreted by myself I think arrhythmia is unlikely. EKG shows normal sinus rhythm with no interval abnormalities such as QT prolongation or WPW. There are no findings to suggest Brugada syndrome. Cardiac monitoring in the emergency department reveals no tachycardic or bradycardic dysrhythmia. Hypertrophic cardiomyopathy was considered but there are no clear historical elements pointing toward this. EKG is not suggestive. The QRS voltage is not extremely large and there are no suggestive Q waves. The labs Independently Interpreted by myself revealed alcohol 462, no worrisome leukocytosis Imaging studies: Chest x-ray with no acute consolidation, pneumothorax or free air per my in dependent rotation Consultation: A consultation was placed with the hospitalist. The case was discussed and diagnostics were reviewed. The patient was evaluated in the ER for further treatment. This appears to be consistent with alcoholism. Patient is requesting admission for detox. Labs and diagnostics were independent by myself. Medicine was consulted and the case was discussed. She will be admitted to the medical team. By the evaluation outlined above emergent etiologies such as infection, hypoglycemia, electrolyte abnormalities, cardiac sources, intracerebral event, neurologic,as well as others were deemed relatively unlikely. The pt informed about the findings as listed above. All questions were answered and pleased with the treatment. The chart was completed utilizing Individual Digital Speech voice recognition software. Grammatical errors, random word insertions, pronoun errors, and incomplete sentences are an occassional consequence of this system due to software li mitations, ambient noise, and hardware issues. Any formal questions or concerns about the content, text, or information contained within the body of this dictation should be directly addressed to the physician administrative office assistant for clarification. Impression & Plan Alcoholic intoxication, Alcohol use disorder Discharge Plan Visit Data Chief Complaint: Alcohol Intoxication Stated Complaint: ALCOHOL INTOX ED Provider: Antonio Mendieta ED Midlevel Provider: Ayanna Morris Discharge Problem: Alcoholic intoxication, Alcohol use disorder Patient Disposition: Being Evaluated by Hospitalist Condition: Fair Forms Stand Alone Forms: [facility] Prescriptions Prescriptions: No Action duloxetine 60 mg capsule,delayed release(DR/EC) 60 mg PO QAM duloxetine 30 mg capsule,delayed release(DR/EC) 30 mg PO QAM Rx Instructions: TOTAL DOSE 90 MG--TAKES WITH 60 MG CAP. mirtazapine 15 mg tablet 15 mg PO HS prazosin 1 mg capsule 3 mg PO HS Linzess 145 mcg capsule 145 mcg PO DAILY buspirone 7.5 mg tablet 7.5 mg PO TID gabapentin 300 mg capsule 300 mg PO TID prenat.vits,juana,cii-ptla-vlcod Tablet 1 tab PO DAILY acetaminophen [Tylenol] 325 mg tablet 650 mg PO BID PRN (Reason: Fever Or Pain) propranolol 10 mg tablet 10 mg PO AMHS thiamine HCl (vitamin B1) 100 mg Tablet 100 mg PO QAM 30 Days Qty: 30 0RF folic acid 1 mg Tablet 1 mg PO QAM 30 Days Qty: 30 0RF cyclobenzaprine 10 mg tablet 10 mg PO BID Referrals Referrals: Alicia Mcgee MD [Primary Care Provider] -
[2022-09-08 22:48] LABS: Hematocrit (blood only) 36.4 % (37.0-47.0); Hemoglobin 12.7 g/dl (12.0-16.0); Mean Corpuscular Hemoglobin 31.4 pg (25.0-34.0); Mean Corpuscular Hgb Conc 34.9 g/dL (32.0-36.0); Mean Corpuscular Volume 89.9 fL (80.0-100.0); Mean Platelet Volume 10.2 fL (9.4-12.4); Platelet Count 248 K/uL (130-400); RDW Coefficient of Variation 13.5 % (11.5-14.5); RDW Standard Deviation 44.4 fL (36.4-46.3); Red Blood Count 4.05 M/uL (4.20-5.40); White Blood Count 5.41 K/ul (4.8-10.8)
[2022-09-08 22:59] LABS: Albumin Globulin Ratio 1.5 (0.9-2); Albumin Level 4.3 gm/dl (3.4-5.0); BUN Creatinine Ratio 11.3 (10-20); Bilirubin,Total 0.2 mg/dl (0.2-1.0); Calcium 8.9 mg/dl (8.6-10.3); Est GFR (African American) 108.4 ml/min; Est GFR (Non-African American) 93.5 ml/min; Globulin 2.8 gm/dl (2.5-4.0); Magnesium 1.8 mg/dl (1.7-2.4); Potassium 3.7 mmol/L (3.5-5.1); Total Protein 7.1 gm/dl (6.0-8.3)
[2022-09-08 23:04] LABS: Acetaminophen < 3 ug/ml (10-30); Salicylate < 3.0 mg/dl (3.0-30)
[2022-09-08 23:05] LABS: Basophils # (auto) 0.04 K/uL (0-0.2); Basophils % (auto) 0.7 %; Eosinophils # (auto) 0.08 K/uL (0-0.50); Eosinophils % (auto) 1.5 %; Lymphocytes # (auto) 3.35 K/uL (1.2-3.4); Lymphocytes % (auto) 61.9 %; Monocytes # (auto) 0.34 K/uL (0.11-0.59); Monocytes % (auto) 6.3 %; Neutrophils % (auto) 29.6 %
[2022-09-08 23:09] LABS: Pregnancy Test, Serum Negative (Negative)
--- NOTE | 2022-09-08 23:38 | History & Physical Report ---
Date of Service September 08, 2022 Assessment & Plan (1) Alcoholic intoxication: (2) MDD (major depressive disorder): (3) Alcohol withdrawal syndrome: (4) GERD (gastroesophageal reflux disease): (5) Alcoholism: (6) Anxiety with depression: Plan Alcoholism/alcohol intoxication/concern regarding alcohol withdrawal- Alcohol level is 462 on admission Other laboratories are unchanged from a few days ago NSS + KCl 20 mEq at 150 mils per hour Thiamine 100 mg p.o. every morning Folic acid 1 mg p.o. every morning Multivitamin daily Zofran 4 mg IV every 6 hours as needed Anxiety with depression/MDD- Continue usual medications buspirone, duloxetine, gabapentin, hydroxyzine, prazosin and mirtazapine Discussed with case management this evening, the patient reports she would like to go to [facility] as an inpatient for rehab and History of Present Illness Chief Complaint: The patient presents to the emergency department with request for detoxing from alcoholism, and concern regarding withdrawal, after being recently admitted to the hospital from 09/03-09/04/2022 for the same. Primary Care Provider: Alicia Mcgee MD The patient is a 37-year-old female with past medical history including alcoholism, MDD, anxiety, history of alcohol withdrawal, GERD, B12 deficiency, depression, reflux esophagitis and hepatic steatosis. Patient was just admitted to the hospital from 09/03-09/04/2022, and expresses a desire to go to inpatient rehab at [facility]. Allergies Allergy/AdvReac Type Severity Reaction Status Date / Time lactose Allergy Intermediate Gastrointestinal Verified 09/08/22 23:57 Upset Home Medications Medication Instructions Recorded Confirmed Type prazosin 1 mg capsule 3 mg PO HS 06/08/21 09/08/22 History cyclobenzaprine 10 mg tablet 10 mg PO BID PRN muscle spasms 12/09/21 09/08/22 History duloxetine 30 mg capsule,delayed 30 mg PO QAM 01/15/22 09/08/22 History release mirtazapine 15 mg tablet 15 mg PO HS 01/15/22 09/08/22 History linaclotide 145 mcg capsule 145 mcg PO DAILY 04/21/22 09/08/22 History (Linzess) duloxetine 60 mg capsule,delayed 60 mg PO QAM 04/29/22 09/08/22 History release buspirone 7.5 mg tablet 7.5 mg PO TID 05/23/22 09/08/22 History gabapentin 300 mg capsule 300 mg PO TID 05/23/22 09/08/22 History prenat.vits,juana,[id number] 1 tab PO DAILY 05/23/22 09/08/22 History acetaminophen 325 mg tablet 650 mg PO BID PRN Fever Or Pain 06/25/22 09/08/22 History (Tylenol) propranolol 10 mg tablet 10 mg PO AMHS 06/25/22 09/08/22 History folic acid 1 mg tablet 1 mg PO QAM 30 days #30 tabs 09/04/22 09/08/22 Rx thiamine HCl (vitamin B1) 100 mg 100 mg PO QAM 30 days #30 tabs 09/04/22 09/08/22 Rx tablet acamprosate 333 mg tablet,delayed 666 mg PO TID 09/08/22 09/08/22 History release hydroxyzine pamoate 50 mg capsule 50 mg PO Q6 PRN Anxiety 09/08/22 09/08/22 History metoprolol tartrate 25 mg tablet 25 mg PO BID 09/08/22 09/08/22 History Past Med/Surg History Medical History (Updated 09/09/22 @ 01:49 by Nicolas Lao MD) Acute alcohol intoxication Alcohol abuse Alcohol dependence Alcohol withdrawal Alcoholic intoxication Alcoholism Anxiety with depression Breast lump on left side at 11 o'clock position Chest pain at rest Hepatic steatosis History of alcohol withdrawal syndrome History of intussusception Hypokalemia Hypokalemia Hypomagnesemia Miscarriage Pancreatitis PTSD (post-traumatic stress disorder) Reflux gastritis Tension headache Thrombocytopenia Transaminitis Surgical History H/O foot surgery Previous section S/P dilation and curettage Family History Mother Depression Anxiety Brother Depression Anxiety Denies family history of Ovarian cancer Prostate cancer Diabetes Myocardial infarction Breast cancer Colorectal cancer Hypertension Social History Smoking Status: Never smoker Second Hand Exposure: No; Do You Dip or Chew Tobacco: No; Hx Alcohol Use: Yes Alcohol type: hard liquor Hx Substance Use: No Preferred Language: Azeri Communication Ability: Effective Visual Impairment: No Limitations Hearing Ability: Normal Gift Officer Required: No Beliefs That Will Affect Care: None marital status: Current Living Situation: Family Current Living Situation Comment: lives with mom and son 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[employer] How many Children do You have: 1 Feels Safe at Home: Yes Childhood Exposure to Second-Hand Smoke: No Diet: regular Dental Care, Regularly: Yes Physical Activity Frequency: 5-6 Times per Week Seatbelt Use: always Sunscreen Use: Yes Assistive Devices: None Review of Systems Review of Systems: The patient denies chest pain, palpitations, shortness of breath, dyspnea on exertion, cough, lower extremity swelling, sore throat, fevers, chills, sweats, vomiting, diarrhea , constipation, abdominal pain, pelvic pain, blood in urine or stool, dysuria, urinary frequency or urgency, memory loss, loss of consciousness, rash, abnormal bruising or bleeding, imbalance, focal or generalized weakness, numbness or tingling in arms or legs, generalized arthralgias or myalgias, back or neck pain, or night sweats. The review of systems is otherwise negative other than for that already noted above, and at least 10 systems have been reviewed. Physical Exam Physical Exam: The patient is awake, alert and oriented 3, well developed and well nourished, normocephalic and atraumatic, lying in bed and in no acute distress. HEENT--PERRL, EOMI, mucous membranes and oropharynx dry. Neck--supple. No JVD. No bruits. Thyroid normal, trachea midline, no adenopathy. Heart--normal S1 and S2. No murmurs, rubs or gallops. Lungs--clear bilaterally, no respiratory distress, no accessory muscle use. Abdomen--normal bowel sounds and soft. Nontender. Nondistended, no hernias or masses, no organomegaly. Extremities--no cyanosis or clubbing. No edema. There are good distal pulses b/l. Dermatologic--normal skin turgor, normal color, no abnormal lymph nodes, no rash. Neurologic--cranial nerves II through XII grossly intact. Rheumatologic--normal range of motion. Psychiatric--normal affect. Results & Data Results & Data Vital Signs (Past 12 Hours) Vital Signs Temp Pulse Resp BP Pulse Ox O2 Del Method 09/08/22 22:04 100 Room Air 09/08/22 20:30 36.8 C 137 H 18 134/98 97 Room Air Laboratory Results Laboratory Results WBC 5.41 K/ul (4.8-10.8) 09/08/22 22:18 RBC 4.05 M/uL (4.20-5.40) L 09/08/22 22:18 Hgb 12.7 g/dl (12.0-16.0) 09/08/22 22:18 Hct 36.4 % (37.0-47.0) L 09/08/22 22:18 MCV 89.9 fL (80.0-100.0) 09/08/22 22:18 MCH 31.4 pg (25.0-34.0) 09/08/22 22:18 MCHC 34.9 g/dL (32.0-36.0) 09/08/22 22:18 RDW Std Deviation 44.4 fL (36.4-46.3) 09/08/22 22:18 RDW Coeff of Dallin 13.5 % (11.5-14.5) 09/08/22 22:18 Plt Count 248 K/uL (130-400) 09/08/22 22:18 MPV 10.2 fL (9.4-12.4) 09/08/22 22:18 Immature Gran % (Auto) 0.0 % 09/08/22 22:18 Neut % (Auto) 29.6 % 09/08/22 22:18 Lymph % (Auto) 61.9 % 09/08/22 22:18 Bee % (Auto) 6.3 % 09/08/22 22:18 Eos % (Auto) 1.5 % 09/08/22 22:18 Baso % (Auto) 0.7 % 09/08/22 22:18 Neut # (Auto) 1.60 K/uL (1.40-6.50) 09/08/22 22:18 Lymph # (Auto) 3.35 K/uL (1.2-3.4) 09/08/22 22:18 Bee # (Auto) 0.34 K/uL (0.11-0.59) 09/08/22 22:18 Eos # (Auto) 0.08 K/uL (0-0.50) 09/08/22 22:18 Baso # (Auto) 0.04 K/uL (0-0.2) 09/08/22 22:18 Immature Gran # (Auto) 0.00 K/uL (0.01-0.20) L 09/08/22 22:18 Sodium 144 mmol/L (136-145) 09/08/22 22:18 Potassium 3.7 mmol/L (3.5-5.1) 09/08/22 22:18 Chloride 105 mmol/L (98-107) 09/08/22 22:18 Carbon Dioxide 28 mmol/L (21-32) 09/08/22 22:18 Anion Gap 11 (3-11) 09/08/22 22:18 BUN 9 mg/dl (6-23) 09/08/22 22:18 Creatinine 0.80 mg/dl (0.6-1.2) 09/08/22 22:18 Est Cr Clr Drug Dosing 110.0 ml/min 09/08/22 22:18 Est GFR ( Amer) 108.4 ml/min 09/08/22 22:18 Est GFR (Non-Af Amer) 93.5 ml/min 09/08/22 22:18 BUN/Creatinine Ratio 11.3 (10-20) 09/08/22 22:18 Glucose 82 mg/dl (70-99(Fasting)) 09/08/22 22:18 Calcium 8.9 mg/dl (8.6-10.3) 09/08/22 22:18 Magnesium 1.8 mg/dl (1.7-2.4) 09/08/22 22:18 Total Bilirubin 0.2 mg/dl (0.2-1.0) 09/08/22 22:18 AST 53 U/L (13-39) H 09/08/22 22:18 ALT 24 U/L (7-52) 09/08/22 22:18 Alkaline Phosphatase 61 U/L (34-104) 09/08/22 22:18 Total Creatine Kinase 108 U/L (26-192) 09/08/22 22:18 Total Protein 7.1 gm/dl (6.0-8.3) 09/08/22 22:18 Albumin 4.3 gm/dl (3.4-5.0) 09/08/22 22:18 Globulin 2.8 gm/dl (2.5-4.0) 09/08/22 22:18 Albumin/Globulin Ratio 1.5 (0.9-2) 09/08/22 22:18 HCG, Qual Negative (Negative) 09/08/22 22:18 Urine Color Yellow 09/08/22 23:50 Urine Appearance Clear (Clear) 09/08/22 23:50 Urine pH 6.5 (4.5-7.5) 09/08/22 23:50 Ur Specific [place] 1.006 (1.000-1.030) 09/08/22 23:50 Urine Protein Negative (Negative) 09/08/22 23:50 Urine Glucose (UA) Negative (Negative) 09/08/22 23:50 Urine Ketones Negative (Negative) 09/08/22 23:50 Urine Blood Negative (Negative) 09/08/22 23:50 Urine Nitrite Negative (Negative) 09/08/22 23:50 Urine Bilirubin Negative (Negative) 09/08/22 23:50 Urine Urobilinogen Negative (Negative) 09/08/22 23:50 Ur Leukocyte Esterase Negative (Negative) 09/08/22 23:50 Salicylates < 3.0 mg/dl (3.0-30) L 09/08/22 22:18 Urine Opiates Screen Neg (Neg) 09/08/22 23:50 Ur Methadone, Qual Neg (Neg) 09/08/22 23:50 Acetaminophen < 3 ug/ml (10-30) L 09/08/22 22:18 Urine Barbiturates Neg (Neg) 09/08/22 23:50 Ur Phencyclidine (PCP) Neg (Neg) 09/08/22 23:50 U Amphetamin/Meth Scrn Neg (Neg) 09/08/22 23:50 MDMA (Ecstasy) Screen Neg (Neg) 09/08/22 23:50 U Benzodiazepines Scrn Neg (Neg) 09/08/22 23:50 Ur Cocaine Metabolite Neg (Neg) 09/08/22 23:50 U Marijuana (THC) Screen Neg (Neg) 09/08/22 23:50 Ethyl Alcohol mg/dL 462.0 mg/dl (<10.0) H 09/08/22 22:18 SARS-CoV-2, RNA, NAAT NEGATIVE (NEGATIVE) 09/08/22 22:10 Code Status & VTE Plan Code Status Full code VTE Prophylaxis Plan VTE Prophylaxis will be ordered: Yes PG Care Time/CCT Total # of Minutes Spent Total Time Spent with Patient: Total time spent is greater than 50% in coordination of care (as documented) at patient's floor/unit and/or counseling patient: Coding Level of Care Code 05598 INT INP/OBS CARE MIN Diagnoses Alcoholic intoxication F10.929 MDD (major depressive disorder) F32.9 Active/Remission status: remission status unspecified Major depression recurrence: unspecified whether recurrent Alcohol withdrawal syndrome F10.939 Complication of substance-induced condition: with unspecified complication GERD (gastroesophageal reflux disease) K21.9 Alcoholism F10.20 Anxiety with depression F41.8 (2) MDD (major depressive disorder) Active/Remission status: remission status unspecified Major depression recurrence: unspecified whether recurrent Qualified Code(s): F32.9 - Major depressive disorder, single episode, unspecified (3) Alcohol withdrawal syndrome Complication of substance-induced condition: with unspecified complication Qualified Code(s): F10.939 - Alcohol use, unspecified with withdrawal, unspecified
[2022-09-09 00:01] LABS: Appearance Urine Clear (Clear); Bilirubin Urine Negative (Negative); Blood Urine Negative (Negative); Color Urine Yellow; Glucose Urine UA Negative (Negative); Ketones Urine Negative (Negative); Leukocyte Esterase Urine Negative (Negative); Nitrite Urine Negative (Negative); Protein Urine Negative (Negative); Specific Gravity Urine 1.006 (1.000-1.030); Urobilinogen Urine Negative (Negative); pH Urine 6.5 (4.5-7.5)
[2022-09-09] MEDS ORDERED: chlordiazePOXIDE HCl 25 MG CAP PO ONE (00:11)
[2022-09-09] MEDS ORDERED: LORazepam 2 MG/1 ML VIAL IV STA (00:11)
[2022-09-09 00:44] LABS: Amphetamines+Metham, Urine Neg (Neg); Barbiturates, Urine Neg (Neg); Benzodiazepine, Urine Neg (Neg); Cocaine, Urine Neg (Neg); MDMA (Ecstacy), Urine Neg (Neg); Methadone, Urine Neg (Neg); Opiate, Urine Neg (Neg); Phencyclidine, Urine Neg (Neg)
[2022-09-09] MEDS ORDERED: ONDANSETRON INJ 2 MG/ML 2 ML VIAL IV PRN (02:36)
[2022-09-09] MEDS: NSS + 20MEQ KCL 20 MEQ/1,000 ML BAG IV SCH ×2 (02:57→08:52)
[2022-09-09] MEDS ORDERED: LORazepam 2 MG/1 ML VIAL IV PRN ×3 (03:41)
[2022-09-09] MEDS ORDERED: Ativan IV Alcohol Withdrawal--Active Protocol IV PRN (03:41)
--- NOTE | 2022-09-09 06:47 | XRay Report ---
XR chest 1V portable CLINICAL HISTORY: OD COMPARISON STUDY: Chest CT May 22, 2022. Chest radiograph June 25, 2022. FINDINGS: Lung volumes are normal. Lungs are clear. There is no pneumothorax or pleural effusion. Car diac size is normal. Mediastinal contours are normal. There is no evidence for pulmonary edema. IMPRESSION: No acute cardiopulmonary findings. ACT 112: Negative or not required by law. Electronically signed by: Hung Stubbs M.D. 09/09/2022 6:45 AM
[2022-09-09 07:52] LABS: Hematocrit (blood only) 28.7 % (37.0-47.0); Hemoglobin 10.1 g/dl (12.0-16.0); Mean Corpuscular Hemoglobin 31.5 pg (25.0-34.0); Mean Corpuscular Hgb Conc 35.2 g/dL (32.0-36.0); Mean Corpuscular Volume 89.4 fL (80.0-100.0); Mean Platelet Volume 10.3 fL (9.4-12.4); Platelet Count 201 K/uL (130-400); RDW Coefficient of Variation 13.7 % (11.5-14.5); RDW Standard Deviation 44.3 fL (36.4-46.3); Red Blood Count 3.21 M/uL (4.20-5.40)
[2022-09-09 08:12] LABS: Albumin Globulin Ratio 1.6 (0.9-2); Albumin Level 3.3 gm/dl (3.4-5.0); BUN Creatinine Ratio 8.8 (10-20); Bilirubin,Total 0.5 mg/dl (0.2-1.0); Calcium 7.3 mg/dl (8.6-10.3); Creatinine Clr Calc Pharmacy 125.4 ml/min; Est GFR (African American) 128.6 ml/min; Globulin 2.1 gm/dl (2.5-4.0); Magnesium 1.4 mg/dl (1.7-2.4); Potassium 3.9 mmol/L (3.5-5.1); Total Protein 5.4 gm/dl (6.0-8.3)
[2022-09-09 08:25] LABS: Basophils # (auto) 0.04 K/uL (0-0.2); Eosinophils # (auto) 0.11 K/uL (0-0.50); Eosinophils % (auto) 2.7 %; Lymphocytes # (auto) 2.36 K/uL (1.2-3.4); Lymphocytes % (auto) 57.6 %; Monocytes # (auto) 0.29 K/uL (0.11-0.59); Monocytes % (auto) 7.1 %; Neutrophils % (auto) 31.6 %
[2022-09-09] MEDS: GABAPENTIN 300 MG CAP PO SCH ×2 (08:51→13:08)
[2022-09-09] MEDS: busPIRone 7.5 MG TAB PO SCH ×2 (08:51→13:08)
[2022-09-09] MEDS ORDERED: THIAMINE HCL 100 MG TAB PO SCH (09:00)
[2022-09-09] MEDS ORDERED: PROPRANOLOL HCL 10 MG TAB PO SCH (09:00)
[2022-09-09] MEDS ORDERED: DULoxetine HCL 30 MG CAP PO SCH (09:00)
[2022-09-09] MEDS ORDERED: FOLIC ACID 1 MG TAB PO SCH (09:00)
[2022-09-09] MEDS ORDERED: PRENATAL VITAMIN 1 TAB PO SCH (09:00)
[2022-09-09] MEDS ORDERED: MAGNESIUM SULFATE / D5W 1 GM/100 ML BAG IV SCH (13:00)
[2022-09-09 14:24] LABS: Hemoglobin 10.6 g/dl (12.0-16.0); Mean Corpuscular Hgb Conc 34.2 g/dL (32.0-36.0); Mean Corpuscular Volume 90.6 fL (80.0-100.0); Mean Platelet Volume 10.4 fL (9.4-12.4); Platelet Count 225 K/uL (130-400); RDW Coefficient of Variation 13.5 % (11.5-14.5); RDW Standard Deviation 44.4 fL (36.4-46.3); Red Blood Count 3.42 M/uL (4.20-5.40); White Blood Count 4.64 K/ul (4.8-10.8)
--- NOTE | 2022-09-09 15:25 | Discharge Summary ---
Date of Service September 09, 2022 Admission HPI Per Admitting Provider The patient is a 37-year-old female with past medical history including alcoholism, MDD, anxiety, history of alcohol withdrawal, GERD, B12 deficiency, depression, reflux esophagitis and hepatic steatosis. Patient was just admitted to the hospital from 09/03-09/04/2022, and expresses a desire to go to inpatient rehab at [facility]. Admission Exam Per Admitting Provider The patient is awake, alert and oriented 3, well developed and well nourished, normocephalic and atraumatic, lying in bed and in no acute distress. HEENT--PERRL, EOMI, mucous membranes and oropharynx dry. Neck--supple. No JVD. No bruits. Thyroid normal, trachea midline, no adenopathy. Heart--normal S1 and S2. No murmurs, rubs or gallops. Lungs--clear bilaterally, no respiratory distress, no accessory muscle use. Abdomen--normal bowel sounds and soft. Nontender. Nondistended, no hernias or masses, no organomegaly. Extremities--no cyanosis or clubbing. No edema. There are good distal pulses b/l. Dermatologic--normal skin turgor, normal color, no abnormal lymph nodes, no rash. Neurologic--cranial nerves II through XII grossly intact. Rheumatologic--normal range of motion. Psychiatric--normal affect. Principal Diagnosis Alcohol withdrawal. Discharge Exam Constitutional WD/WN, vitals as above Eyes PERRL, conjunctivae normal, anicteric sclerae Respiratory normal respiratory effort, lungs clear to auscultation Cardiovascular RRR, no murmur, no edema Gastrointestinal (Abdomen) normal bowel sounds, soft, nontender, no hepatosplenomegaly Neurologic No asterixis present. Psychiatric A+Ox3, euthymic affect Discharge Data Allergies Allergy/AdvReac Type Severity Reaction Status Date / Time lactose Allergy Intermediate Gastrointestinal Verified 09/08/22 23:57 Upset Consultations 09/08/22 23:21 ED Decision to Admit Stat Hospital Course (1) Alcohol use disorder: -Alcohol level of 462 on admission. -Mg 1.4, repleted 2g Mg sulfate. Electrolytes otherwise WNL. -Received 1mg x1 Ativan, 2mg x1 Ativan while inpatient. -Symptoms under control by time of discharge. Patient had stated she had discussed rehab with [facility] and has a bed available today. She seemed motivated for wanting to get a hold of her alcohol use disorder as she said she had previous success with a 33 day stay at this same location. Discussed with patient she is still not out of the range of potential withdrawal seizure and that we strongly discourage/recommend against driving during this time. Patient stated she could possibly get her friend's mother to drive her since she knows where that area is (~3 hours away in [place], [place]). -Cotninue home thiamine 100mg PO daily and folic acid daily on discharge. -Continue home meds. Patient planning to go to [facility] today. Total Time Total Time Spent Total Time Spent (In Minutes): Please see attending attestation. Discharge Plan Discharge Items Patient Disposition: Home - Self-Care Reason For Visit: ALCOHOL INTOXICATION / WITHDRAWAL Discharge Diagnosis: Alcohol withdrawal Condition on Discharge: Fair Activity: Per Instructions section Non-emergency contact: Primary Care Provider Call non-emergency contact if: your symptoms worsen, your pain is worsening and your temperature is above 101 Follow-up/Referrals: Alicia Mcgee MD [Primary Care Provider] - Diet: Regular Addtl Attending Provider Instructions: You came into the hospital for management of alcohol use with potential for withdrawal. During your stay here you were monitored and treated for any symptoms of alcohol withdrawal. You had relayed to us that you were in contact with [facility] and that they have a bed available for you. Due to the potential for having a withdrawal seizure we highly recommend against driving in the next 48 hours. If you will be traveling to the detox facility, if at all possible please have someone else drive you. If you find yourself with any recurrence of symptoms after discharge or worsening of symptoms please return to the hospital or go to the nearest hospital. Please follow up with your primary care doctor within the next few weeks if poss ible. CALL 911 OR GO TO THE EMERGENCY DEPARTMENT if you experience any of the following: * Sudden, severe abdominal pain or nausea/vomiting * Severe chest pain, or chest pain that radiates (moves) to your jaw or arm * Sudden, severe shortness of breath or difficulty breathing Pending Studies at Discharge: No Stand-Alone Forms: My [employer], Smoking Cessation Medications and DC Order Prescriptions: Continued duloxetine 60 mg capsule,delayed release(DR/EC) 60 mg PO QAM duloxetine 30 mg capsule,delayed release(DR/EC) 30 mg PO QAM Rx Instructions: TOTAL DOSE 90 MG--TAKES WITH 60 MG CAP. mirtazapine 15 mg tablet 15 mg PO HS prazosin 1 mg capsule 3 mg PO HS Linzess 145 mcg capsule 145 mcg PO DAILY buspirone 7.5 mg tablet 7.5 mg PO TID gabapentin 300 mg capsule 300 mg PO TID prenat.vits,juana,[id number] Tablet 1 tab PO DAILY acetaminophen [Tylenol] 325 mg tablet 650 mg PO BID PRN (Reason: Fever Or Pain) propranolol 10 mg tablet 10 mg PO AMHS thiamine HCl (vitamin B1) 100 mg Tablet 100 mg PO QAM 30 Days Qty: 30 0RF folic acid 1 mg Tablet 1 mg PO QAM 30 Days Qty: 30 0RF hydroxyzine pamoate 50 mg capsule 50 mg PO Q6 PRN (Reason: Anxiety) metoprolol tartrate 25 mg tablet 25 mg PO BID acamprosate 333 mg tablet,delayed release (DR/EC) 666 mg PO TID cyclobenzaprine 10 mg tablet 10 mg PO BID PRN (Reason: muscle spasms) Discharge Orders: Discharge Order (Routine); Ordered 09/09/22 Ordered By: Dae Acuna Admission Data Admit Date/Time: 09/08/22 23:38 Attending Provider: Adalid Cooper Admit Provider: Nicolas Lao Primary Care Provider: Alicia Mcgee Other Providers: Nicolas Lao Other Interventions: Discharge Summary Assessment (RN) Last Done: 09/09/22 15:21 Supervising Physician Co-Signing Physician Notes Attending attestation Pt seen and examined in concert with Dr. Acuna. In agreement with the documented findings as noted in the resident documentation with any exceptions or additions as noted here. Resting comfortably at bedside without complaint at present. Last dose of lorazpeam 2mg 3 hours prior. On examination, S1/S2 nl RRR no MCG. CTAB. Abd NT/ND BS+ve Alcohol use disorder with withdrawal - patient elects to transition care to [facility] where she is established from previous and eschews further management at this time. Discourage operation of motor vehicle until symptoms fully resolve. Anemia - normocytic without stigmata of bleeding, stable Hgb today. Encourage further evaluation in the outpatient setting Hypomagnesemia - repleted today Else see resident documentation as noted. Total attending physician time spent with this patient's care on the day of discharge: 40 minutes. Resident Activity Tracking Resident Involvement: Resident Care Provided Care Provided: Adult Hospital Medicine
--- NOTE | 2022-09-09 16:40 | Electrocardiogram Report ---
Test Reason : Blood Pressure : / mmHG Vent. Rate : 104 BPM Atrial Rate : 104 BPM P-R Int : 144 ms QRS Dur : 080 ms QT Int : 370 ms P-R-T Axes : 048 030 -08 degrees QTc Int : 486 ms Sinus tachycardia Low voltage QRS T wave abnormality, consider anterolateral ischemia Abnormal ECG When compared with ECG of 02-SEP-2022 20:34, No significant change was found Confirmed by Mike Brown ([id number]) on 09/09/2022 4:40:25 PM Referred By: REFERRED SELF Confirmed By:Oren Brown
[2022-09-09] MEDS ORDERED: PRAZOSIN HCL 1 MG CAP PO SCH (21:00)
[2022-09-09] MEDS ORDERED: MIRTAZAPINE TAB 15 MG TAB PO SCH (21:00)
== END 2022-09-09 17:01 | disposition home or self-care (01) | DRG 897 ==
LOC: ED 20:28 → 2N 23:38 → SUATTDRO 23:38 → 2N 09-09 02:21
DX: E73.9 Lactose intolerance, unspecified; F10.229 Alcohol dependence with intoxication, unspecified; K21.9 Gastro-esophageal reflux disease without esophagitis; F41.8 Other specified anxiety disorders; Z20.822 Contact with and (suspected) exposure to COVID-19; Z79.899 Other long term (current) drug therapy; F10.239 Alcohol dependence with withdrawal, unspecified; Y90.8 Blood alcohol level of 240 mg/100 ml or more; E83.42 Hypomagnesemia; D64.9 Anemia, unspecified

== ENCOUNTER 2023-02-01 11:53 | Observation (INO) ==
[2023-02-01] MEDS ORDERED: SODIUM CHLORIDE 0.9% 1,000 ML IV SCH (12:15)
--- NOTE | 2023-02-01 12:22 | Emergency Department Note ---
Impression & Plan Alcohol intoxication, Alcohol abuse ED Provider Note ED Provider Note NAME: PHILLIP AMARO AGE:37 SEX: Female : 1985 ARRIVES VIA: private vehicle INFORMANT: Patient ED PROVIDER(s): Pita Ulrich DO CHIEF COMPLAINT: Alcohol intoxication HPI: This is a 37-year-old female who presents due to acute alcohol intoxication. Patient unable to provide much history. She does have a known longstanding history of alcohol abuse. No additional family at bedside. Patient has been here previously with similar presentation and had recently been at inpatient rehab. Patient medical claims representative did state they found an empty bottle of etoh in the waiting room bathroom after the patient had been in there. They are uncertain if she may have been drinking while in the waiting room. PAST MEDICAL HISTORY:See Below PAST SURGICAL HISTORY:See Below FAMILY HISTORY:See Below SOCIAL HISTORY:See Below HOME MEDICATIONS:See Below ALLERGIES:See Below VITALS:See Below PHYSICAL EXAMINATION: GENERAL: alert, intoxicated appearing, well nourished, no distress, non-toxic, smells of EtOH HEAD: nc/at EYE EXAM: normal conjunctiva, PERRL and EOM's grossly intact OROPHARYNX: no exudate, no erythema, lips, buccal mucosa, and tongue normal and mucous membranes are moist NECK: supple, no nuchal rigidity, no adenopathy, non-tender LUNGS: Clear to auscultation. Normal chest wall mechanics, no w/r/r HEART: no murmurs, S1 normal and S2 normal CHEST WALL: no evidence of trauma ABDOMEN: abdomen soft, non-tender, normo-active bowel sounds, no masses, no rebound or guarding.No evidence of trauma. BACK: Back is symmetrical on inspection and there is no deformity, no midline tenderness, no CVA tenderness. SKIN: no rashes, petechiae, orbruising UPPER EXTREMITIES: upper extremities are grossly normal. FROM, nml pulses b/l. No evidence of trauma or deformity. LOWER EXTREMITIES: No pitting edema. FROM, nml pulses b/l. No evidence of trauma or deformity. NEURO EXAM: Clinically intoxicated, cranial nerves II-XII grossly intact, slurred speech, no facial droop,moving all extremities spontaneously, will follow commands, cannot perform any additional neuro testing Vital Signs: reviewed and remarkable Differential Diagnosis: alcohol intoxication, substance abuse, alcohol withdrawal, infection, hypoglycemia, electrolyte abnormalities, KAYCE, dehydration, CVA/ICH, as well as others were entertained. MEDICAL DECISION MAKING: THis is a 37 yo female who is well known to the ER for similar presentations of acute alcohol intoxication. VS stable and patient would follow simple commands and give yes/no answer but could not provide much history but did acknowledge using alcohol again. She denied injury and no evidence of trauma on her exam. No additional family at bedside. Labs drawn and sent, IV established, EKG performed and interpreted at bedside, and patient placed on telemetry. She was started on IVF and IV banana bag. Given her alcohol was almost 500 and she has a history of significant alcohol withdrawal, case was discussed with the hospitalist for additional evaluation and mgmt. Consultation(s): 1535: Discussed with Dr. Polo, [facility]ist for additional evaluation and treatment. ER Treatment Provided: See below Diagnostics Interpreted By Me: -ECG: Normal sinus at 96, normal axis, normal intervals, no acute ST/T wave changes -Cardiac Monitoring: An order was placed for continuous cardiac monitoring. The monitor shows a rate of 90 with normal sinus rhythm. -Laboratory studies: As stated above and show below. -Imaging studies: [] Triage Nursing Note Reviewed Prior/Outside Records Reviewed -prior DC summary reviewed Past Med/Surg History Medical History Hypokalemia Alcoholism Chest pain at rest Alcoholic intoxication History of alcohol withdrawal syndrome History of intussusception Thrombocytopenia Tension headache Alcohol withdrawal Breast lump on left side at 11 o'clock position Transaminitis Hypokalemia Hypomagnesemia Reflux gastritis Miscarriage Alcohol dependence Acute alcohol intoxication Anxiety with depression PTSD (post-traumatic stress disorder) Hepatic steatosis Pancreatitis Alcohol abuse Surgical History S/P dilation and curettage H/O foot surgery Previous section Family History Mother Depression Anxiety Brother Depression Anxiety Denies family history of Ovarian cancer Prostate cancer Diabetes Myocardial infarction Breast cancer Colorectal cancer Hypertension Social History Smoking Status: Never smoker Second Hand Exposure: No; Do You Dip or Chew Tobacco: No; Hx Alcohol Use: Yes Alcohol type: hard liquor Hx Substance Use: No Preferred Language: Bulgarian Communication Ability: Effective Visual Impairment: No Limitations Hearing Ability: Normal [place] Required: No Beliefs That Will Affect Care: None marital status: Current Living Situation: Parent and Family Current Living Situation Comment: recently discharged from rehab 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[employer] How many Children do You have: 1 Other Information That Helps Us Care for You: No Feels Safe at Home: Yes Safety Concerns: Feels Safe At This Time Childhood Exposure to Second-Hand Smoke: No Diet: regular Dental Care, Regularly: Yes Physical Activity Frequency: 5-6 Times per Week Seatbelt Use: always Sunscreen Use: Yes Assistive Devices: Glasses Assistive Devices Comment: prescription Allergies Allergies Allergy/AdvReac Type Severity Reaction Status Date / Time lactose AdvReac Unknown Verified 11/11/22 09:31 Home Meds Home Medications Medication Instructions Recorded Confirmed mirtazapine 15 mg tablet 15 mg PO HS 01/15/22 02/01/23 linaclotide 145 mcg capsule 145 mcg PO DAILY 04/21/22 02/01/23 (Linzess) duloxetine 60 mg capsule,delayed 60 mg PO QAM 04/29/22 02/01/23 release gabapentin 300 mg capsule 300 mg PO TID 05/23/22 02/01/23 prenat.vits,juana,jnh-hlgl-sqphh 1 tab PO DAILY 05/23/22 02/01/23 hydroxyzine pamoate 50 mg capsule 50 mg PO Q6 PRN Anxiety 09/08/22 02/01/23 folic acid 1 mg tablet 1 mg PO DAILY 10/16/22 02/01/23 naltrexone microspheres 380 mg 380 mg IM .MONTHLY 10/16/22 02/01/23 intramuscular suspension,extended release (Vivitrol) prazosin 2 mg capsule 6 mg PO HS 10/16/22 02/01/23 Previous Rx's Medication Instructions Recorded buspirone 10 mg tablet 10 mg PO TID #90 tabs 11/11/22 propranolol 10 mg tablet 10 mg PO BID #30 tabs 11/11/22 Results & Data (ED) Vital Signs Vital Signs - 24 hr 02/01/23 11:53 02/01/23 11:53 02/01/23 13:19 Temperature 36.6 C Temperature Source Temporal Artery Scan Pulse Rate 105 H Pulse Rate [Left Apical] Pulse Rate [Left Finger] 80 Respiratory Rate 18 20 Respiratory Effort / Characteristics Non-Labored Respiratory Depth Normal Blood Pressure 132/96 Blood Pressure [Left Arm] 118/89 Blood Pressure [Right Arm] Blood Pressure Mean 108 Blood Pressure Mean [Left Arm] 98 Blood Pressure Mean [Right Arm] Blood Pressure Position [Left Arm] Pulse Oximetry 99 95 Oxygen Delivery Method Room Air Room Air Sepsis Recent Fever Within 48 Hours No Sepsis New/Unexplained Change in Mental Status N/A Sepsis Action Taken by Nursing No Action Required 02/01/23 13:20 02/01/23 13:20 02/01/23 14:01 Temperature Temperature Source Pulse Rate 80 97 H Pulse Rate [Left Apical] Pulse Rate [Left Finger] 88 Respiratory Rate 20 21 Respiratory Effort / Characteristics Non-Labored Spontaneous Respiratory Depth Normal Blood Pressure Blood Pressure [Left Arm] 114/81 Blood Pressure [Right Arm] Blood Pressure Mean Blood Pressure Mean [Left Arm] 92 Blood Pressure Mean [Right Arm] Blood Pressure Position [Left Arm] Right Lateral Pulse Oximetry 95 93 Oxygen Delivery Method Room Air Room Air Sepsis Recent Fever Within 48 Hours Sepsis New/Unexplained Change in Mental Status Sepsis Action Taken by Nursing 02/01/23 14:30 02/01/23 14:30 02/01/23 15:00 Temperature Temperature Source Pulse Rate 83 99 H Pulse Rate [Left Apical] Pulse Rate [Left Finger] 93 H Respiratory Rate 16 20 18 Respiratory Effort / Characteristics Non-Labored Spontaneous Respiratory Depth Normal Blood Pressure 114/81 115/81 Blood Pressure [Left Arm] 107/82 Blood Pressure [Right Arm] Blood Pressure Mean 92 92 Blood Pressure Mean [Left Arm] 90 Blood Pressure Mean [Right Arm] Blood Pressure Position [Left Arm] Pulse Oximetry 99 98 96 Oxygen Delivery Method Room Air Room Air Room Air Sepsis Recent Fever Within 48 Hours Sepsis New/Unexplained Change in Mental Status Sepsis Action Taken by Nursing 02/01/23 15:30 02/01/23 17:00 02/01/23 17:00 Temperature Temperature Source Pulse Rate 86 87 Pulse Rate [Left Apical] Pulse Rate [Left Finger] Respiratory Rate 20 16 Respiratory Effort / Characteristics Respiratory Depth Blood Pressure 105/75 112/81 Blood Pressure [Left Arm] Blood Pressure [Right Arm] 112/81 Blood Pressure Mean 85 91 Blood Pressure Mean [Left Arm] Blood Pressure Mean [Right Arm] 91 Blood Pressure Position [Left Arm] Pulse Oximetry 98 100 Oxygen Delivery Method Sepsis Recent Fever Within 48 Hours Sepsis New/Unexplained Change in Mental Status Sepsis Action Taken by Nursing 02/01/23 17:20 02/01/23 17:46 02/01/23 18:00 Temperature Temperature Source Pulse Rate 97 H 97 H Pulse Rate [Left Apical] 91 H Pulse Rate [Left Finger] Respiratory Rate 17 14 Respiratory Effort / Characteristics Non-Labored Respiratory Depth Normal Blood Pressure 111/77 Blood Pressure [Left Arm] Blood Pressure [Right Arm] Blood Pressure Mean 88 Blood Pressure Mean [Left Arm] Blood Pressure Mean [Right Arm] Blood Pressure Position [Left Arm] Pulse Oximetry 99 97 Oxygen Delivery Method Room Air Sepsis Recent Fever Within 48 Hours Sepsis New/Unexplained Change in Mental Status Sepsis Action Taken by Nursing 02/01/23 18:30 02/01/23 19:24 Temperature Temperature Source Pulse Rate 92 H Pulse Rate [Left Apical] 93 H Pulse Rate [Left Finger] Respiratory Rate 22 12 Respiratory Effort / Characteristics Respiratory Depth Normal Blood Pressure Blood Pressure [Left Arm] Blood Pressure [Right Arm] 124/87 Blood Pressure Mean Blood Pressure Mean [Left Arm] Blood Pressure Mean [Right Arm] 99 Blood Pressure Position [Left Arm] Pulse Oximetry 97 100 Oxygen Delivery Method Room Air Sepsis Recent Fever Within 48 Hours Sepsis New/Unexplained Change in Mental Status Sepsis Action Taken by Nursing Laboratory Data 02/01/23 12:30 02/02/23 06:22 Lab Results 02/01/23 Range/Units 12:30 WBC 6.68 (4.8-10.8) K/ul RBC 4.13 L (4.20-5.40) M/uL Hgb 12.7 (12.0-16.0) g/dl Hct 36.1 L (37.0-47.0) % MCV 87.4 (80.0-100.0) fL MCH 30.8 (25.0-34.0) pg MCHC 35.2 (32.0-36.0) g/dL RDW Std Deviation 42.9 (36.4-46.3) fL RDW Coeff of D[place]in 13.5 (11.5-14.5) % Plt Count 303 (130-400) K/uL MPV 10.0 (9.4-12.4) fL Neutrophils % (Manual) 43 % Lymphocytes % (Manual) 30 % Reactive Lymphs % (Man) 18 % Monocytes % (Manual) 6 % Basophils % (Manual) 3 % Neutrophils # (Manual) 2.87 (1.40-6.50) K/uL Total Absolute Neuts 2.87 (1.4-6.5) K/uL Lymphocytes # (Manual) 2.00 (1.2-3.4) K/uL Reactive Lymphs # 1.20 K/uL Total Abs Lymphocytes 3.21 (1.2-3.4) K/uL Monocytes # (Manual) 0.40 (0.11-0.59) K/uL Basophils # (Manual) 0.20 (0-0.2) K/uL PT 10.1 (9.0-12.0) Seconds INR 0.9 (0.9-1.1) Sodium 146 H (136-145) mmol/L Potassium 3.1 L (3.5-5.1) mmol/L Chloride 106 (98-107) mmol/L Carbon Dioxide 31 (21-32) mmol/L Anion Gap 9 (3-11) BUN 14 (6-23) mg/dl Creatinine 0.77 (0.6-1.2) mg/dl Est Cr Clr Drug Dosing 114.3 ml/min Est GFR ( Amer) 113.5 ml/min Est GFR (Non-Af Amer) 97.9 ml/min BUN/Creatinine Ratio 18.2 (10-20) Glucose 94 (70-99(Fasting)) mg/dl Calcium 8.4 L (8.6-10.3) mg/dl Magnesium 1.9 (1.7-2.4) mg/dl Total Bilirubin 0.3 (0.2-1.0) mg/dl AST 38 (13-39) U/L ALT 20 (7-52) U/L Alkaline Phosphatase 71 (34-104) U/L Troponin I High Sens < 2.3 (0-14) pg/ml Total Protein 6.7 (6.0-8.3) gm/dl Albumin 4.0 (3.4-5.0) gm/dl Globulin 2.7 (2.5-4.0) gm/dl Albumin/Globulin Ratio 1.5 (0.9-2) Lipase 61 (11-82) U/L TSH 1.123 (0.300-4.500) uIu/ml HCG, Qual Negative (Negative) Salicylates < 3.0 L (3.0-30) mg/dl Urine Opiates Screen Neg (Neg) Ur Methadone, Qual Neg (Neg) Acetaminophen < 3 L (10-30) ug/ml Urine Barbiturates Neg (Neg) Ur Phencyclidine (PCP) Neg (Neg) U Amphetamin/Meth Scrn Neg (Neg) MDMA (Ecstasy) Screen Neg (Neg) U Benzodiazepines Scrn Neg (Neg) Ur Cocaine Metabolite Neg (Neg) U Marijuana (THC) Screen Neg (Neg) Ethyl Alcohol mg/dL 491.8 H (<10.0) mg/dl Administered Medications Buspirone HCl (Buspirone 5 Mg Tab) 10 mg PO TID JOSE F Stop: 03/03/23 21:59 Last Admin: 02/02/23 15:08 Dose: 10 mg Documented By: Admin: 02/02/23 08:43 Dose: 10 mg Documented By: Admin: 02/01/23 23:00 Dose: 10 mg Documented By: PAUL Chlordiazepoxide HCl (Chlordiazepoxide Hcl 25 Mg Cap) 50 mg PO Q6H JOSE F Stop: 02/03/23 04:01 Last Admin: 02/02/23 16:03 Dose: 50 mg Documented By: Admin: 02/02/23 11:02 Dose: 50 mg Documented By: HU Duloxetine HCl (Duloxetine Hcl 60 Mg Cap) 60 mg PO QAM JOSE F Stop: 03/04/23 08:59 Last Admin: 02/02/23 08:43 Dose: 60 mg Documented By: HU Folic Acid (Folic Acid 1 Mg Tab) 1 mg PO DAILY JOSE F Stop: 03/04/23 08:59 Last Admin: 02/02/23 08:43 Dose: 1 mg Documented By: HU Gabapentin (Gabapentin 300 Mg Cap) 300 mg PO TID JOSE F Stop: 03/03/23 21:59 Last Admin: 02/02/23 14:07 Dose: 300 mg Documented By: Admin: 02/02/23 08:44 Dose: 300 mg Documented By: Admin: 02/01/23 23:01 Dose: 300 mg Documented By: PAUL Linaclotide (Linaclotide 145 Mcg Capsule) 145 mcg PO DAILY JOSE F Stop: 03/04/23 08:59 Last Admin: 02/02/23 08:44 Dose: 145 mcg Documented By: HU Mirtazapine (Mirtazapine Tab 15 Mg Tab) 15 mg PO HS JOSE F Stop: 03/03/23 21:59 Last Admin: 02/01/23 23:00 Dose: 15 mg Documented By: PAUL Pantoprazole Sodium (Pantoprazole 40 Mg Tab) 40 mg PO BID JOSE F Stop: 03/04/23 09:29 Last Admin: 02/02/23 11:02 Dose: 40 mg Documented By: HU Prazosin HCl (Prazosin Hcl 1 Mg Cap) 6 mg PO HS JOSE F Stop: 03/03/23 22:29 Last Admin: 02/01/23 23:01 Dose: 6 mg Documented By: PAUL Prenat Multivit/[place]/Iron/Folic Ac ( Vitamin 1 Tab) 1 tab PO DAILY JOSE F Stop: 03/04/23 08:59 Last Admin: 02/02/23 08:43 Dose: 1 tab Documented By: HU Propranolol HCl (Propranolol Hcl 10 Mg Tab) 10 mg PO BID JOSE F Stop: 03/03/23 21:59 Last Admin: 02/02/23 08:44 Dose: 10 mg Documented By: Admin: 02/01/23 23:01 Dose: 10 mg Documented By: PAUL Thiamine HCl (Thiamine Hcl 100 Mg Tab) 100 mg PO QAM JOSE F Stop: 03/04/23 08:59 Last Admin: 02/02/23 08:48 Dose: 100 mg Documented By: HU Discontinued Medications Acetaminophen (Acetaminophen 325 Mg Tab) 650 mg PO NOW STA Stop: 02/01/23 23:15 Last Admin: 02/01/23 23:52 Dose: 650 mg Documented By: PAUL Hydroxyzine HCl (Hydroxyzine Hcl 25 Mg Tab) 50 mg PO Q6 PRN PRN Reason: Anxiety Stop: 03/03/23 21:23 Last Admin: 02/02/23 08:54 Dose: 50 mg Documented By: Admin: 02/01/23 23:11 Dose: 50 mg Documented By: PAUL Sodium Chloride (Nss) 1,000 mls @ 125 mls/hr IV .Q8H JOSE F Stop: 03/03/23 12:14 Last Infusion: 02/01/23 17:18 Dose: Infused Documented By: Infusion: 02/01/23 17:18 Dose: 0 mls/hr Documented By: Admin: 02/01/23 12:38 Dose: 125 mls/hr Documented By: OREN Multivitamins 10 ml/ Thiamine HCl 100 mg/ Folic Acid 1 mg/Sodium Chloride 1,011.2 mls @ 200 mls/hr IV .Q5H4M ONE Stop: 02/01/23 20:09 Last Infusion: 02/01/23 20:50 Dose: Infused Documented By: [employer] Admin: 02/01/23 15:32 Dose: 200 mls/hr Documented By: ROD Potassium Chloride/Sodium Chloride (1/2 Nss + 20meq Kcl 1000ml) 20 meq in 1,000 mls @ 125 mls/hr IV .Q8H JOSE F; Protocol Stop: 02/02/23 17:14 Last Admin: 02/02/23 11:02 Dose: 125 mls/hr Documented By: Infusion: 02/02/23 10:50 Dose: Infused Documented By: Admin: 02/02/23 02:50 Dose: 125 mls/hr Documented By: Infusion: 02/02/23 01:50 EDT Dose: Infused Documented By: Admin: 02/01/23 17:50 Dose: 125 mls/hr Documented By: ROD Calcium Gluconate 1,000 mg/ (Sodium Chloride) 60 mls @ 240 mls/hr IV NOW ONE Stop: 02/02/23 14:45 Last Infusion: 02/02/23 15:34 Dose: Infused Documented By: Admin: 02/02/23 15:11 Dose: 240 mls/hr Documented By: HU Influenza Virus Vaccine Quadrival (Influenza Virus Quadrivalent Vaccine (Iiv4) 0.5 Ml Syr) 0.5 ml IM .ONCE ONE Stop: 02/02/23 08:45 Last Admin: 02/02/23 14:08 Dose: 0.5 ml Documented By: HU Lorazepam (Lorazepam 2 Mg/1 Ml Vial) 0.25 mg IV NOW STA Stop: 02/02/23 05:23 Last Admin: 02/02/23 05:38 Dose: 0.25 mg Documented By: PAUL Ondansetron HCl (Ondansetron Inj 2 Mg/Ml 2 Ml Vial) 4 mg IV NOW STA Stop: 02/02/23 05:27 Last Admin: 02/02/23 05:41 Dose: 4 mg Documented By: PAUL Potassium Chloride (Potassium Chloride Crtab 20 Meq Tabcr) 20 meq PO NOW STA Stop: 02/02/23 08:49 Last Admin: 02/02/23 10:59 Dose: Not Given Documented By: HU Potassium Chloride (Potassium Chloride Crtab 20 Meq Tabcr) 20 meq PO NOW STA Stop: 02/02/23 10:58 Last Admin: 02/02/23 11:19 Dose: 20 meq Documented By: HU Quetiapine Fumarate (Quetiapine Fumarate 25 Mg Tablet) 12.5 mg PO ONE ONE Stop: 02/02/23 11:06 Last Admin: 02/02/23 11:22 Dose: 12.5 mg Documented By: HU Discharge Plan Visit Data Chief Complaint: Alcohol Intoxication Stated Complaint: ALCOHOL INTOXICATION ED Provider: Pita Ulrich Discharge Problem: Alcohol intoxication, Alcohol abuse Patient Disposition: Admitted As Inpatient Discharge Instructions Interventions: ED Discharge Assessment Last Done: 02/01/23 20:59 Discharge Problem: Alcohol intoxication Qualifiers: Complication of substance-induced condition: with unspecified complication Q ualified Code(s): F10.929 - Alcohol use, unspecified with intoxication, unspecified
[2023-02-01 13:01] LABS: Hematocrit (blood only) 36.1 % (37.0-47.0); Hemoglobin 12.7 g/dl (12.0-16.0); Mean Corpuscular Hemoglobin 30.8 pg (25.0-34.0); Mean Corpuscular Hgb Conc 35.2 g/dL (32.0-36.0); Mean Corpuscular Volume 87.4 fL (80.0-100.0); Platelet Count 303 K/uL (130-400); RDW Coefficient of Variation 13.5 % (11.5-14.5); RDW Standard Deviation 42.9 fL (36.4-46.3); Red Blood Count 4.13 M/uL (4.20-5.40); White Blood Count 6.68 K/ul (4.8-10.8)
[2023-02-01 13:19] LABS: Pregnancy Test, Serum Negative (Negative)
[2023-02-01 13:22] LABS: ALC (manual) 3.21 K/uL (1.2-3.4); ANC (manual) 2.87 K/uL (1.4-6.5); Basophils % (manual) 3 %; Lymphocytes % (manual) 30 %; Monocytes % (manual) 6 %; Neutrophils # (manual) 2.87 K/uL (1.40-6.50); Neutrophils % (manual) 43 %; Reactive Lymphocytes % (manual) 18 %
[2023-02-01 13:31] LABS: Alanine Aminotransferase 20 U/L (7-52); Albumin Globulin Ratio 1.5 (0.9-2); Alkaline Phosphatase 71 U/L (34-104); Anion Gap 9 (3-11); Aspartate Aminotransferase 38 U/L (13-39); BUN Creatinine Ratio 18.2 (10-20); Bilirubin,Total 0.3 mg/dl (0.2-1.0); Blood Urea Nitrogen 14 mg/dl (6-23); Calcium 8.4 mg/dl (8.6-10.3); Carbon Dioxide 31 mmol/L (21-32); Chloride 106 mmol/L (98-107); Creatinine Clr Calc Pharmacy 114.3 ml/min; Est GFR (African American) 113.5 ml/min; Est GFR (Non-African American) 97.9 ml/min; Globulin 2.7 gm/dl (2.5-4.0); Glucose 94 mg/dl (70-99(Fasting)); Lipase 61 U/L (11-82); Magnesium 1.9 mg/dl (1.7-2.4); Potassium 3.1 mmol/L (3.5-5.1); Sodium 146 mmol/L (136-145); Total Protein 6.7 gm/dl (6.0-8.3)
[2023-02-01 13:34] LABS: Amphetamines+Metham, Urine Neg (Neg); Barbiturates, Urine Neg (Neg); Benzodiazepine, Urine Neg (Neg); Cocaine, Urine Neg (Neg); MDMA (Ecstacy), Urine Neg (Neg); Methadone, Urine Neg (Neg); Opiate, Urine Neg (Neg); Phencyclidine, Urine Neg (Neg)
[2023-02-01 13:37] LABS: Troponin I High Sensitivity < 2.3 pg/ml (0-14)
[2023-02-01 13:47] LABS: Thyroid Stimulating Hormone 1.123 uIu/ml (0.300-4.500)
[2023-02-01 14:13] LABS: INR 0.9 (0.9-1.1); Prothrombin Time 10.1 Seconds (9.0-12.0)
[2023-02-01 14:44] LABS: Acetaminophen < 3 ug/ml (10-30); Salicylate < 3.0 mg/dl (3.0-30)
[2023-02-01] MEDS ORDERED: MULTI-VITAMIN INFUSION 10 ML, THIAMINE HCL 100 MG, FOLIC ACID 1 MG in SODIUM CHLORIDE 0... IV ONE (15:06)
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
[2023-02-01] MEDS: SODIUM CHLOR 0.45% + 20MEQ KCL 20 MEQ/1,000 ML BAG IV SCH (17:50)
[2023-02-01] MEDS ORDERED: PRAZOSIN HCL 1 MG CAP PO SCH ×2 (21:00)
[2023-02-01] MEDS ORDERED: LORazepam 2 MG/1 ML VIAL IV PRN (21:24)
[2023-02-01] MEDS: busPIRone 5 MG TAB PO SCH (23:00)
[2023-02-01] MEDS: MIRTAZAPINE TAB 15 MG TAB PO SCH (23:00)
[2023-02-01] MEDS: PROPRANOLOL HCL 10 MG TAB PO SCH (23:01)
[2023-02-01] MEDS: PRAZOSIN HCL 1 MG CAP PO SCH (23:01)
[2023-02-01] MEDS: GABAPENTIN 300 MG CAP PO SCH (23:01)
[2023-02-01] MEDS: hydrOXYzine HCl 25 MG TAB PO PRN (23:11)
[2023-02-01] MEDS ORDERED: ACETAMINOPHEN 325 MG TAB PO STA (23:14)
[2023-02-02] MEDS: SODIUM CHLOR 0.45% + 20MEQ KCL 20 MEQ/1,000 ML BAG IV SCH ×2 (02:50→11:02)
[2023-02-02] MEDS ORDERED: LORazepam 2 MG/1 ML VIAL IV STA (05:22)
[2023-02-02] MEDS ORDERED: ONDANSETRON INJ 2 MG/ML 2 ML VIAL IV STA (05:26)
[2023-02-02 07:11] LABS: BUN Creatinine Ratio 13.3 (10-20); Calcium 7.2 mg/dl (8.6-10.3); Creatinine Clr Calc Pharmacy 125.7 ml/min; Est GFR (African American) 117.2 ml/min; Est GFR (Non-African American) 101.1 ml/min; Potassium 3.3 mmol/L (3.5-5.1)
[2023-02-02] MEDS: DULoxetine HCL 60 MG CAP PO SCH (08:43)
[2023-02-02] MEDS: busPIRone 5 MG TAB PO SCH ×3 (08:43→22:17)
[2023-02-02] MEDS: PRENATAL VITAMIN 1 TAB PO SCH (08:43)
[2023-02-02] MEDS: FOLIC ACID 1 MG TAB PO SCH (08:43)
[2023-02-02] MEDS: PROPRANOLOL HCL 10 MG TAB PO SCH ×2 (08:44→22:17)
[2023-02-02] MEDS ORDERED: INFLUENZA VIRUS QUADRIVALENT VACCINE (IIV4) 0.5 ML SYR IM ONE (08:44)
[2023-02-02] MEDS: GABAPENTIN 300 MG CAP PO SCH ×3 (08:44→22:18)
[2023-02-02] MEDS: LINACLOTIDE 145 MCG CAPSULE PO SCH (08:44)
[2023-02-02] MEDS ORDERED: POTASSIUM CHLORIDE CRTAB 20 MEQ TABCR PO STA ×2 (08:48→10:57)
[2023-02-02] MEDS: THIAMINE HCL 100 MG TAB PO SCH (08:48)
[2023-02-02] MEDS: hydrOXYzine HCl 25 MG TAB PO PRN (08:54)
[2023-02-02] MEDS ORDERED: chlordiazePOXIDE ALCOHOL WITHDRAWL 50MG PO STA (09:21)
[2023-02-02] MEDS: PANTOprazole 40 MG TAB PO SCH ×2 (11:02→22:18)
[2023-02-02] MEDS: chlordiazePOXIDE HCl 25 MG CAP PO SCH ×3 (11:02→22:17)
[2023-02-02] MEDS ORDERED: QUEtiapine FUMARATE 25 MG TABLET PO ONE (11:05)
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
[2023-02-02] MEDS ORDERED: QUEtiapine FUMARATE 25 MG TABLET PO PRN (14:15)
[2023-02-02] MEDS ORDERED: CALCIUM GLUCONATE 10% 1,000 MG in SODIUM CHLOR 0.9% MINI-B 50 ML IV ONE (14:31)
[2023-02-02] MEDS ORDERED: STAT IV/IM STA (14:31)
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
[2023-02-02] MEDS ORDERED: Ativan PO Alcohol Withdrawal--Active Protocol PO PRN (16:06)
[2023-02-02] MEDS ORDERED: LORazepam 1 MG TAB PO PRN ×3 (16:06)
--- NOTE | 2023-02-02 19:08 | Electrocardiogram Report ---
Test Reason : Blood Pressure : / mmHG Vent. Rate : 096 BPM Atrial Rate : 096 BPM P-R Int : 144 ms QRS Dur : 082 ms QT Int : 378 ms P-R-T Axes : 044 058 017 degrees QTc Int : 477 ms Normal sinus rhythm Low voltage QRS Nonspecific T wave abnormality Abnormal ECG When compared with ECG of 24-NOV-2022 13:10, No significant change was found Confirmed by Laurent Merchant ([id number]) on 02/02/2023 7:08:30 PM Referred By: Confirmed By:Laurent Merchant
[2023-02-02] MEDS: PRAZOSIN HCL 1 MG CAP PO SCH (22:17)
[2023-02-02] MEDS: MIRTAZAPINE TAB 15 MG TAB PO SCH (22:18)
[2023-02-03] MEDS: chlordiazePOXIDE HCl 25 MG CAP PO SCH (04:28)
[2023-02-03 07:27] LABS: BUN Creatinine Ratio 12.7 (10-20); Calcium 7.9 mg/dl (8.6-10.3); Creatinine Clr Calc Pharmacy 120.2 ml/min; Est GFR (African American) 110.1 ml/min; Magnesium 1.5 mg/dl (1.7-2.4); Potassium 3.6 mmol/L (3.5-5.1)
[2023-02-03] MEDS: busPIRone 5 MG TAB PO SCH ×2 (08:56→13:53)
[2023-02-03] MEDS: PRENATAL VITAMIN 1 TAB PO SCH (08:57)
[2023-02-03] MEDS: THIAMINE HCL 100 MG TAB PO SCH (08:57)
[2023-02-03] MEDS: DULoxetine HCL 60 MG CAP PO SCH (08:57)
[2023-02-03] MEDS: LINACLOTIDE 145 MCG CAPSULE PO SCH (08:57)
[2023-02-03] MEDS: FOLIC ACID 1 MG TAB PO SCH (08:57)
[2023-02-03] MEDS: GABAPENTIN 300 MG CAP PO SCH ×2 (08:58→13:54)
[2023-02-03] MEDS: PROPRANOLOL HCL 10 MG TAB PO SCH (08:58)
[2023-02-03] MEDS: PANTOprazole 40 MG TAB PO SCH (08:58)
[2023-02-03] MEDS ORDERED: POTASSIUM CHLORIDE CRTAB 20 MEQ TABCR PO STA (12:44)
[2023-02-03] MEDS ORDERED: STAT IV/IM STA (12:44)
[2023-02-03] MEDS ORDERED: CALCIUM GLUCONATE 10% 1,000 MG in SODIUM CHLOR 0.9% MINI-B 50 ML IV ONE (12:44)
[2023-02-03] MEDS ORDERED: chlordiazePOXIDE HCl 25 MG CAP PO SCH (13:00)
[2023-02-03] MEDS: MAGNESIUM SULFATE / D5W 1 GM/100 ML BAG IV SCH ×2 (14:17→16:17)
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
[2023-02-04] MEDS ORDERED: chlordiazePOXIDE HCl 25 MG CAP PO SCH (14:00)
== END 2023-02-03 18:04 | disposition home or self-care (01) ==
LOC: 2N 11:53 → ED 11:53 → SUATTDRO 16:10 → 2N 20:59

== ENCOUNTER 2023-03-13 19:35 | Inpatient (IN) ==
[2023-03-13 21:12] LABS: Albumin Globulin Ratio 1.7 (0.9-2); Albumin Level 5.4 gm/dl (3.4-5.0); BUN Creatinine Ratio 15.5 (10-20); Bilirubin,Total 0.9 mg/dl (0.2-1.0); Calcium 8.2 mg/dl (8.6-10.3); Creatinine Clr Calc Pharmacy 82.8 ml/min; Est GFR (African American) 79.9 ml/min; Est GFR (Non-African American) 68.9 ml/min; Globulin 3.1 gm/dl (2.5-4.0); Potassium 4.2 mmol/L (3.5-5.1); Total Protein 8.5 gm/dl (6.0-8.3)
[2023-03-13] MEDS ORDERED: MULTI-VITAMIN INFUSION 10 ML, THIAMINE HCL 100 MG, FOLIC ACID 1 MG in SODIUM CHLORIDE 0... IV ONE (21:42)
[2023-03-13] MEDS ORDERED: THIAMINE HCL 200 MG in SODIUM CHLORIDE 0.9% 50 ML IV STA (21:42)
[2023-03-13] MEDS ORDERED: SODIUM CHLORIDE 0.9% 1,000 ML IV ONE (21:42)
[2023-03-13] MEDS ORDERED: ONDANSETRON INJ 2 MG/ML 2 ML VIAL IV STA (21:54)
[2023-03-13] MEDS ORDERED: LORazepam 1 MG/1 ML SYR ED Inj Use IV STA (21:54)
[2023-03-13 22:32] LABS: Acetaminophen < 3 ug/ml (10-30); Salicylate < 3.0 mg/dl (3.0-30)
[2023-03-13 22:36] LABS: Magnesium 1.8 mg/dl (1.7-2.4); Phosphorus 3.3 mg/dl (2.5-4.9)
[2023-03-13 22:42] LABS: Basophils # (auto) 0.06 K/uL (0.00-0.20); Basophils % (auto) 0.4 %; Eosinophils # (auto) 0.02 K/uL (0.00-0.50); Eosinophils % (auto) 0.1 %; Hematocrit (blood only) 41.2 % (37.0-47.0); Hemoglobin 14.1 g/dl (12.0-16.0); Immature Granulocytes # (auto) 0.09 K/uL (0.01-0.20); Immature Granulocytes % (auto) 0.6 %; Lymphocytes # (auto) 1.01 K/uL (1.20-3.40); Lymphocytes % (auto) 6.8 %; Mean Corpuscular Hemoglobin 32.3 pg (25.0-34.0); Mean Corpuscular Hgb Conc 34.2 g/dL (32.0-36.0); Mean Corpuscular Volume 94.3 fL (80.0-100.0); Mean Platelet Volume 11.1 fL (9.4-12.4); Monocytes # (auto) 0.53 K/uL (0.11-0.59); Monocytes % (auto) 3.5 %; Neutrophils # (auto) 13.24 K/uL (1.40-6.50); Neutrophils % (auto) 88.6 %; Platelet Count 246 K/uL (130-400); RDW Coefficient of Variation 16.9 % (11.5-14.5); RDW Standard Deviation 58.2 fL (36.4-46.3); Red Blood Count 4.37 M/uL (4.20-5.40); White Blood Count 14.95 K/ul (4.8-10.8)
[2023-03-13 22:49] LABS: HCO3 VBG 13 mmol/L; Oxygen Saturation VBG 70.6 %; PCO2 VBG 27 mmHg (38-50); PO2 VBG 46 mmHg; pH VBG 7.29 (7.36-7.41)
[2023-03-13] MEDS ORDERED: FAMOTIDINE 20MG IV PUSH 20 MG/5 ML SYR IV STA (22:52)
[2023-03-13 22:55] LABS: Pregnancy Test, Serum Negative (Negative)
[2023-03-13] MEDS ORDERED: D5W AND NSS 1,000 ML IV STA (22:56)
--- NOTE | 2023-03-13 22:59 | Emergency Department Note ---
Impression & Plan Alcohol withdrawal, Alcoholic ketoacidosis, High anion gap metabolic acidosis, Alcoholic gastritis, Elevated lactic acid level ED Provider Note NAME: PHILLIP AMARO AGE: 37 SEX: F ARRIVES VIA: Walk-In INFORMANT: Patient ED PROVIDER(S): Antonio Mendieta MD CHIEF COMPLAINT: Alcohol withdrawal, nausea vomiting PLAN: Disposition: Admit MEDICAL DECISION MAKING: The patient is a pleasant 37-year-old woman with a past medical history of alcoholism/dependence, alcohol withdrawal, PTSD, anxiety/depression who presents to the emergency department via walk-in for evaluation of symptoms of alcohol withdrawal and intractable nausea and vomiting which she reports has been going on for the past several days where she has had poor oral intake with inability to keep anything down. Patient reports this morning she had her last drink of alcohol and decided she wanted to stop drinking but acknowledges that she knows she is at risk for severe alcohol withdrawal and even seizures. She presents for evaluation and further management of her withdrawal symptoms. She denies any fevers, chills, cough, congestion. She reports her nausea and vomiting and abdominal pain feels reminiscent of prior episodes of pancreatitis. She denies any urinary symptoms. On my evaluation the patient is uncomfortable but no acute distress, afebrile with heart rate in the 130s and vital signs otherwise stable. She appears mildly tremulous. She appears clinically dry. Abdomen is nontender. EKG without overt acute ischemia. WBC 14.9 K with neutrophil predominance though no left shift, nonspecific. H/H and platelets within normal limits. Chemistry demonstrates high anion gap metabolic acidosis with anion gap of 33 and bicarbonate of 10. VBG demonstrates pH of 7.29 with component of respiratory compensation with pCO2 of 27. Sodium is 129 suspected to be related to poor solute intake. Osmolality is 350 consistent with the patient's clinically dry appearance alcohol consumption with alcohol of 261. There is no increased osmolar gap. Initial lactic acid 5.2 with repeat downtrendin to 3.4. AST and ALT are mildly elevated at 111 and 90, respectively, slightly increased from prior with LFTs otherwise unremarkable with normal bilirubin and alk phos. CPK is not elevated. High-sensitivity troponin 6.1, within normal limits. Lipase not elevated. hCG was negative. Salicylates and acetaminophen were undetectable. COVID-19 RNA, BROCK test was negative. CTA of the chest was negative for PE or acute cardiopulmonary process. CT of the abdomen pelvis demonstrates hepatic steatosis and otherwise no acute intra- abdominal process. Treatment was initiated with IV fluid hydration with 1 L banana bag and D5 NS for suspected component of alcoholic ketoacidosis in setting of suspected alcoholic gastritis. Patient additionally given 2 mg of IV Ativan on initial evaluation for early treatment of alcohol withdrawal. AWSS in progress. Given the patient's alcohol withdrawal with high anion gap metabolic acidosis patient agreed to plan for admission for further management Case was discussed with Dr. Kamara, [facility] hospitalist, who will evaluate the patient for admission. Triage Nursing notes reviewed and agree them. Prior/external medical records reviewed Vital Signs: reviewed Differential diagnosis: Alcohol intoxication, toxicologic, infection, hypoglycemia, electrolyte abnormalities, cardiac sources, intracerebral event, neurologic, trauma, as well as other pathologies. ER treatment provided: See below. Diagnostics interpreted by me: ECG: Sinus tachycardia, 113 bpm, no ectopy, nonspecific ST and T wave abnormality, no overt ST elevation or depression, QTc 471, QRS 76 Cardiac Monitoring: An order for continuous cardiac monitoring was placed and demonstrated Sinus tachycardia, 113 bpm, no ectopy. Laboratory studies: See below Imaging studies: See below Consultation(s): Case was discussed with Dr. Kamara, [facility] hospitalist, who will evaluate the patient for admission. HPI: The patient is a pleasant 37-year-old woman with a past medical history of alcoholism/dependence, alcohol withdrawal, PTSD, anxiety/depression who presents to the emergency department via walk-in for evaluation of symptoms of alcohol withdrawal and intractable nausea and vomiting which she reports has been going on for the past several days where she has had poor oral intake with inability to keep anything down. Patient reports this morning she had her last drink of alcohol and decided she wanted to stop drinking but acknowledges that she knows she is at risk for severe alcohol withdrawal and even seizures. She presents for evaluation and further management of her withdrawal symptoms. She denies any fevers, chills, cough, congestion. She reports her nausea and vomiting and abdominal pain feels reminiscent of prior episodes of pancreatitis. She denies any urinary symptoms. ROS: See above HPI for pertinent positives & negatives. A total of 10 systems reviewed and were otherwise negative. VITALS:See Below PHYSICAL EXAMINATION: GENERAL: Awake, alert, uncomfortable/anxious-appearing, in no distress HENT: Normocephalic, atraumatic. Oropharynx with dry mucous membranes and otherwise unremarkable. EYES: Normal conjunctiva. Sclera non-icteric. EOMI. No nystamgus. PEARRL. NECK: Supple. No nuchal rigidity. FROM. No JVD. RESPIRATORY: Clear to auscultation. CARDIAC: Tachycardic rate, normal rhythm. Extremities warm and well perfused. Pulses equal. ABDOMEN: Soft, non-distended. No tenderness to palpation. No rebound or guarding. No masses. RECTAL: Deferred. MUSCULOSKELETAL: Chest examination reveals no tenderness. The back is symmetrical on inspection without obvious abnormality. There is no CVA tenderness to palpation. No joint edema. LOWER EXTREMITIES: Calves are equal size bilaterally and non-tender. No edema. No discoloration. NEURO: Mildly tremulous. No focal sensory or motor deficits noted. DTRs wnl. No clonus. SKIN: No rash or jaundice noted. ED COURSE: Critical Care: I have personally spent greater than 35 minutes of critical care time in the direct management of this patient. This includes bedside care, interpretation of diagnostic studies, and testing, discussion with consultants, patient, and family members, and other required patient management activities. This 35 minutes is in excess of all separately billable procedures. Antonio Mendieta MD Past Med/Surg History Medical History Alcohol withdrawal Hypokalemia Alcoholism Chest pain at rest Alcoholic intoxication History of alcohol withdrawal syndrome History of intussusception Thrombocytopenia Tension headache Alcohol withdrawal Breast lump on left side at 11 o'clock position Transaminitis Hypokalemia Hypomagnesemia Reflux gastritis Miscarriage Alcohol dependence Acute alcohol intoxication Anxiety with depression PTSD (post-traumatic stress disorder) Hepatic steatosis Pancreatitis Alcohol abuse Surgical History S/P dilation and curettage H/O foot surgery Previous section Family History Mother Depression Anxiety Brother Depression Anxiety Denies family history of Ovarian cancer Prostate cancer Diabetes Myocardial infarction Breast cancer Colorectal cancer Hypertension Social History Smoking Status: Never smoker Second Hand Exposure: No; Do You Dip or Chew Tobacco: No; Hx Alcohol Use: Yes Alcohol type: hard liquor Hx Substance Use: No Preferred Language: Bengali Communication Ability: Effective Visual Impairment: No Limitations Hearing Ability: Normal Quill Fixer Required: No Beliefs That Will Affect Care: None marital status: Current Living Situation: Parent and Family Current Living Situation Comment: recently discharged from rehab 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[employer] How many Children do You have: 1 Feels Safe at Home: Yes Childhood Exposure to Second-Hand Smoke: No Diet: regular Dental Care, Regularly: Yes Physical Activity Frequency: 5-6 Times per Week Seatbelt Use: always Sunscreen Use: Yes Assistive Devices: None Allergies Allergies Allergy/AdvReac Type Severity Reaction Status Date / Time lactose AdvReac Unknown Verified 11/11/22 09:31 Home Meds Home Medications Medication Instructions Recorded Confirmed mirtazapine 15 mg tablet 15 mg PO HS 01/15/22 02/01/23 linaclotide 145 mcg capsule 145 mcg PO DAILY 04/21/22 02/01/23 (Linzess) duloxetine 60 mg capsule,delayed 60 mg PO QAM 04/29/22 02/01/23 release gabapentin 300 mg capsule 300 mg PO TID 05/23/22 02/01/23 prenat.vits,juana,[id number] 1 tab PO DAILY 05/23/22 02/01/23 hydroxyzine pamoate 50 mg capsule 50 mg PO Q6 PRN Anxiety 09/08/22 02/01/23 folic acid 1 mg tablet 1 mg PO DAILY 10/16/22 02/01/23 naltrexone microspheres 380 mg 380 mg IM .MONTHLY 10/16/22 02/01/23 intramuscular suspension,extended release (Vivitrol) prazosin 2 mg capsule 6 mg PO HS 10/16/22 02/01/23 Previous Rx's Medication Instructions Recorded buspirone 10 mg tablet 10 mg PO TID #90 tabs 11/11/22 propranolol 10 mg tablet 10 mg PO BID #30 tabs 11/11/22 chlordiazepoxide HCl 25 mg capsule See Rx Instructions .Route 02/03/23 .COMPLEX #7 caps Results & Data (ED) Vital Signs Vital Signs - 24 hr 03/13/23 19:48 03/13/23 20:16 03/13/23 20:34 Temperature 36.5 C Temperature Source Temporal Artery Scan Pulse Rate 132 H 105 H Pulse Rate [Apical] 111 H Pulse Rate from SpO2 Sensor Pulse Rhythm [Apical] Regular Respiratory Rate 18 18 Respiratory Effort / Characteristics Non-Labored Spontaneous Non-Labored Spontaneous Respiratory Depth Normal Normal Respiratory Pattern Regular Regular Blood Pressure 147/93 H Blood Pressure [Right Arm] 163/99 H Blood Pressure Mean 111 Blood Pressure Mean [Right Arm] 120 Blood Pressure Position Sitting Blood Pressure Position [Right Arm] Lying Pulse Oximetry 99 100 Oxygen Delivery Method Room Air Room Air Sepsis Recent Fever Within 48 Hours No Sepsis New/Unexplained Change in Mental Status N/A Sepsis Action Taken by Nursing No Action Required 03/13/23 20:38 03/13/23 23:01 03/13/23 23:03 Temperature Temperature Source Pulse Rate Pulse Rate [Apical] 123 H Pulse Rate from SpO2 Sensor 113 H Pulse Rhythm [Apical] Respiratory Rate 18 Respiratory Effort / Characteristics Non-Labored Spontaneous Respiratory Depth Normal Respiratory Pattern Regular Blood Pressure 124/92 Blood Pressure [Right Arm] 124/92 Blood Pressure Mean 102 Blood Pressure Mean [Right Arm] 102 Blood Pressure Position Blood Pressure Position [Right Arm] Lying Pulse Oximetry 100 99 99 Oxygen Delivery Method Room Air Room Air Sepsis Recent Fever Within 48 Hours Sepsis New/Unexplained Change in Mental Status Sepsis Action Taken by Nursing 03/13/23 23:43 03/14/23 00:00 03/14/23 00:38 Temperature Temperature Source Pulse Rate 106 H 106 H Pulse Rate [Apical] Pulse Rate from SpO2 Sensor 114 H 106 H Pulse Rhythm [Apical] Respiratory Rate 22 Respiratory Effort / Characteristics Respiratory Depth Respiratory Pattern Blood Pressure 131/73 130/80 Blood Pressure [Right Arm] Blood Pressure Mean 92 96 Blood Pressure Mean [Right Arm] Blood Pressure Position Blood Pressure Position [Right Arm] Pulse Oximetry 100 100 Oxygen Delivery Method Sepsis Recent Fever Within 48 Hours Sepsis New/Unexplained Change in Mental Status Sepsis Action Taken by Nursing 03/14/23 01:00 Temperature Temperature Source Pulse Rate 115 H Pulse Rate [Apical] Pulse Rate from SpO2 Sensor 114 H Pulse Rhythm [Apical] Respiratory Rate 23 Respiratory Effort / Characteristics Respiratory Depth Respiratory Pattern Blood Pressure 153/89 H Blood Pressure [Right Arm] Blood Pressure Mean 110 Blood Pressure Mean [Right Arm] Blood Pressure Position Blood Pressure Position [Right Arm] Pulse Oximetry 100 Oxygen Delivery Method Sepsis Recent Fever Within 48 Hours Sepsis New/Unexplained Change in Mental Status Sepsis Action Taken by Nursing Laboratory Data Attestation: I reviewed the patient's lab results. 03/13/23 20:30 12/14/23 20:18 Lab Results 03/13/23 03/13/23 03/13/23 Range/Units 20:18 20:30 22:40 WBC 14.95 H (4.8-10.8) K/ul RBC 4.37 (4.20-5.40) M/uL Hgb 14.1 (12.0-16.0) g/dl Hct 41.2 (37.0-47.0) % MCV 94.3 (80.0-100.0) fL MCH 32.3 (25.0-34.0) pg MCHC 34.2 (32.0-36.0) g/dL RDW Std Deviation 58.2 H (36.4-46.3) fL RDW Coeff of [place] 16.9 H (11.5-14.5) % Plt Count 246 (130-400) K/uL MPV 11.1 (9.4-12.4) fL Immature Gran % (Auto) 0.6 % Neut % (Auto) 88.6 % Lymph % (Auto) 6.8 % [place] % (Auto) 3.5 % Eos % (Auto) 0.1 % Baso % (Auto) 0.4 % Neut # (Auto) 13.24 H (1.40-6.50) K/uL Lymph # (Auto) 1.01 L (1.20-3.40) K/uL [place] # (Auto) 0.53 (0.11-0.59) K/uL Eos # (Auto) 0.02 (0.00-0.50) K/uL Baso # (Auto) 0.06 (0.00-0.20) K/uL Immature Gran # (Auto) 0.09 (0.01-0.20) K/uL VBG pH 7.29 L (7.36-7.41) VBG pCO2 27 L (38-50) mmHg VBG pO2 46 mmHg VBG HCO3 13 mmol/L VBG O2 Saturation 70.6 % VBG Base Excess -12.0 mEq/L Sodium 129 L (136-145) mmol/L Potassium 4.2 (3.5-5.1) mmol/L Chloride 86 L (98-107) mmol/L Carbon Dioxide 10 L (21-32) mmol/L Anion Gap 33 H (3-11) BUN 16 (6-23) mg/dl Creatinine 1.03 (0.6-1.2) mg/dl Est Cr Clr Drug Dosing 82.8 ml/min Est GFR ( Amer) 79.9 ml/min Est GFR (Non-Af Amer) 68.9 ml/min BUN/Creatinine Ratio 15.5 (10-20) Glucose 105 H (70-99(Fasting)) mg/dl Osmolality 350 H (280-300) mOsm/kg Lactate 5.2 H* (0.4-2.0) mmol/L Calcium 8.2 L (8.6-10.3) mg/dl Phosphorus 3.3 (2.5-4.9) mg/dl Magnesium 1.8 (1.7-2.4) mg/dl Total Bilirubin 0.9 (0.2-1.0) mg/dl AST 111 H (13-39) U/L ALT 90 H (7-52) U/L Alkaline Phosphatase 74 (34-104) U/L Total Creatine Kinase 100 (26-192) U/L Troponin I High Sens (0-14) pg/ml Total Protein 8.5 H (6.0-8.3) gm/dl Albumin 5.4 H (3.4-5.0) gm/dl Globulin 3.1 (2.5-4.0) gm/dl Albumin/Globulin Ratio 1.7 (0.9-2) Lipase 65 (11-82) U/L HCG, Qual Negative (Negative) Salicylates < 3.0 L (3.0-30) mg/dl Acetaminophen < 3 L (10-30) ug/ml Ethyl Alcohol mg/dL 261.6 H (<10.0) mg/dl SARS-CoV-2, RNA, NAAT (NEGATIVE) 03/13/23 03/13/23 03/14/23 Range/Units 22:42 Unknown 00:29 WBC (4.8-10.8) K/ul RBC (4.20-5.40) M/uL Hgb (12.0-16.0) g/dl Hct (37.0-47.0) % MCV (80.0-100.0) fL MCH (25.0-34.0) pg MCHC (32.0-36.0) g/dL RDW Std Deviation (36.4-46.3) fL RDW Coeff of [place] (11.5-14.5) % Plt Count (130-400) K/uL MPV (9.4-12.4) fL Immature Gran % (Auto) % Neut % (Auto) % Lymph % (Auto) % [place] % (Auto) % Eos % (Auto) % Baso % (Auto) % Neut # (Auto) (1.40-6.50) K/uL Lymph # (Auto) (1.20-3.40) K/uL [place] # (Auto) (0.11-0.59) K/uL Eos # (Auto) (0.00-0.50) K/uL Baso # (Auto) (0.00-0.20) K/uL Immature Gran # (Auto) (0.01-0.20) K/uL VBG pH (7.36-7.41) VBG pCO2 (38-50) mmHg VBG pO2 mmHg VBG HCO3 mmol/L VBG O2 Saturation % VBG Base Excess mEq/L Sodium (136-145) mmol/L Potassium (3.5-5.1) mmol/L Chloride (98-107) mmol/L Carbon Dioxide (21-32) mmol/L Anion Gap (3-11) BUN (6-23) mg/dl Creatinine (0.6-1.2) mg/dl Est Cr Clr Drug Dosing ml/min Est GFR ( Amer) ml/min Est GFR (Non-Af Amer) ml/min BUN/Creatinine Ratio (10-20) Glucose (70-99(Fasting)) mg/dl Osmolality (280-300) mOsm/kg Lactate 3.4 H* (0.4-2.0) mmol/L Calcium (8.6-10.3) mg/dl Phosphorus (2.5-4.9) mg/dl Magnesium (1.7-2.4) mg/dl Total Bilirubin (0.2-1.0) mg/dl AST (13-39) U/L ALT (7-52) U/L Alkaline Phosphatase (34-104) U/L Total Creatine Kinase (26-192) U/L Troponin I High Sens 6.1 (0-14) pg/ml Total Protein (6.0-8.3) gm/dl Albumin (3.4-5.0) gm/dl Globulin (2.5-4.0) gm/dl Albumin/Globulin Ratio (0.9-2) Lipase (11-82) U/L HCG, Qual (Negative) Salicylates (3.0-30) mg/dl Acetaminophen (10-30) ug/ml Ethyl Alcohol mg/dL (<10.0) mg/dl SARS-CoV-2, RNA, NAAT NEGATIVE (NEGATIVE) Administered Medications Discontinued Medications Thiamine HCl 200 mg/ Sodium (Chloride) 52 mls @ 210 mls/hr IV NOW STA Stop: 03/13/23 21:56 Last Infusion: 03/13/23 23:21 Dose: Infused Documented By: Infusion: 03/13/23 23:07 Dose: 210 mls/hr Documented By: Infusion: 03/13/23 22:48 Dose: 0 mls/hr Documented By: Admin: 03/13/23 22:39 Dose: 210 mls/hr Documented By: JULI Multivitamins 10 ml/ Thiamine HCl 100 mg/ Folic Acid 1 mg/Sodium Chloride 1,011.2 mls @ 500 mls/hr IV .Q2H2M ONE Stop: 03/13/23 23:43 Last Infusion: 03/14/23 01:20 Dose: Infused Documented By: Infusion: 03/13/23 23:21 Dose: 500 mls/hr Documented By: Infusion: 03/13/23 22:48 Dose: 0 mls/hr Documented By: Admin: 03/13/23 22:39 Dose: 500 mls/hr Documented By: JULI Sodium Chloride (Nss) 1,000 mls @ 999 mls/hr IV .Q1H1M ONE Stop: 03/13/23 22:42 Last Infusion: 03/14/23 00:12 Dose: Infused Documented By: Infusion: 03/13/23 23:07 Dose: 999 mls/hr Documented By: Infusion: 03/13/23 22:48 Dose: 0 mls/hr Documented By: Admin: 03/13/23 22:43 Dose: 999 mls/hr Documented By: JULI Famotidine (Pepcid 20mg Iv Push) 20 mg in 5 mls @ 2.5 mls/min IV NOW STA Stop: 03/13/23 22:53 Last Admin: 03/13/23 23:15 Dose: 2.5 mls/min Documented By: WALLY Dextrose/Sodium Chloride (D5w And Nss) 1,000 mls @ 999 mls/hr IV .Q1H1M STA Stop: 03/13/23 23:56 Last Infusion: 03/14/23 01:20 Dose: Infused Documented By: Admin: 03/14/23 00:11 Dose: 999 mls/hr Documented By: WALLY Lorazepam 1 mg/ Syringe 1 mls @ 2 mls/min IV ONE PRN; Protocol PRN Reason: EtoH Withdrawal AWSS 6-10 Last Admin: 03/14/23 01:10 Dose: 2 mls/min Documented By: WALLY Ioversol (Optiray 320 125ml) 116 ml IV ONCE ONE Stop: 03/13/23 23:41 Last Admin: 03/13/23 23:40 Dose: 116 ml Documented By: DONOVAN Lorazepam (Lorazepam 1 Mg/1 Ml Syr Ed Inj Use) 2 mg IV ONE STA Stop: 03/13/23 21:55 Last Admin: 03/13/23 22:43 Dose: 2 mg Documented By: JULI Ondansetron HCl (Ondansetron Inj 2 Mg/Ml 2 Ml Vial) 4 mg IV NOW STA Stop: 03/13/23 21:55 Last Admin: 03/13/23 22:43 Dose: 4 mg Documented By: JULI Imaging Data Radiologist's Impression: Abdomen/Pelvis CT 03/13/23 22:52 Exam(s): CT ABDOMEN + PELVIS With Contrast IV Amt: 116 ml opti 320 EXAM: CT Abdomen and Pelvis With Intravenous Contrast CLINICAL HISTORY: Reason for exam: n/v, acidosis. TECHNIQUE: Axial computed tomography images of the abdomen and pelvis with intravenous contrast. CTDI is 23.23 mGy and DLP is 1203.36 mGy-cm. Automated exposure control was utilized for the study. A dose lowering technique was utilized adhering to the principles of ALARA. CONTRAST: Patient received 116 ml opti 320 of IV contrast COMPARISON: CT abdomen/pelvis on 05/22/2022 FINDINGS: Lung bases: Unremarkable. No mass. No consolidation. ABDOMEN: Liver: Hepatic steatosis. Gallbladder and bile ducts: Unremarkable. No calcified stones. No ductal dilation. Pancreas: Unremarkable. No mass. No ductal dilation. Spleen: Unremarkable. No splenomegaly. Adrenals: Unremarkable. No mass. Kidneys and ureters: Unremarkable. No hydronephrosis or obstructing stone. Stomach and bowel: Unremarkable. No obstruction. No mucosal thickening. PELVIS: Appendix: Normal appendix. Bladder: Unremarkable. No mass. Reproductive: Unremarkable as visualized. ABDOMEN and PELVIS: Intraperitoneal space: Unremarkable. No free air. No significant fluid collection. Bones/joints: Bilateral L5 pars defects. Grade 1 anterolisthesis of L5 on S1. No acute fracture. No dislocation. Soft tissues: Unremarkable. Vasculature: Unremarkable. No abdominal aortic aneurysm. Lymph nodes: Unremarkable. No enlarged lymph nodes. IMPRESSION: Hepatic steatosis. No acute abnormality. Electronically signed by: Clay Johnson M.D. 03/14/23 00:29 AM Chest CTA 03/13/23 22:52 Exam(s): CTA CHEST IV Amt: 116 ml opti 320 EXAM: CT Angiography Chest With Intravenous Contrast CLINICAL HISTORY: Reason for exam: cp, sob, acidosis, r/o PE. TECHNIQUE: Axial computed tomographic angiography images of the chest with intravenous contrast. CTDI is 22.17 mGy and DLP is 782.53 mGy-cm. Automated exposure control was utilized for the study. A dose lowering technique was utilized adhering to the principles of ALARA. MIP reconstructed images were created and reviewed. COMPARISON: CT chest on 05/22/2022 FINDINGS: Pulmonary arteries: Unremarkable. No definite pulmonary embolus identified, but evaluation of the distal pulmonary arterial branches is limited by motion artifact. Aorta: No acute findings. No aortic aneurysm or dissection. Lungs: Unremarkable. No mass. No consolidation. Pleural space: Unremarkable. No significant effusion. No pneumothorax. Heart: Unremarkable. No cardiomegaly. No significant pericardial effusion. No evidence of RV dysfunction. Bones/joints: No acute fracture. No dislocation. Soft tissues: Unremarkable. Lymph nodes: Unremarkable. No enlarged lymph nodes. Liver: Hepatic steatosis. Gallbladder and bile ducts: Hyperdense material in the gallbladder may represent artifact versus stones/sludge. IMPRESSION: 1. No definite pulmonary embolus identified, but evaluation of the distal pulmonary arterial branches is limited by motion artifact. 2. No aortic aneurysm or dissection. 3. No acute pulmonary parenchymal abnormality identified. Electronically signed by: lCay Johnson M.D. 03/14/23 00:26 AM Discharge Plan Visit Data Chief Complaint: Alcohol Withdrawal Stated Complaint: ALCOHOL WITHDRAWAL ED Provider: Antonio Mendieta Discharge Problem: Alcohol withdrawal, Alcoholic ketoacidosis, High anion gap metabolic acidosis, Alcoholic gastritis, Elevated lactic acid level Forms Stand Alone Forms: My [facility], Suicide Prevention Resources Prescriptions Prescriptions: No Action duloxetine 60 mg capsule,delayed release(DR/EC) 60 mg PO QAM buspirone 10 mg tablet 10 mg PO TID Qty: 90 6RF propranolol 10 mg tablet 10 mg PO BID Qty: 30 6RF mirtazapine 15 mg tablet 15 mg PO HS Linzess 145 mcg capsule 145 mcg PO DAILY gabapentin 300 mg capsule 300 mg PO TID prenat.vits,juana,[id number] Tablet 1 tab PO DAILY hydroxyzine pamoate 50 mg capsule 50 mg PO Q6 PRN (Reason: Anxiety) chlordiazepoxide HCl 25 mg capsule See Rx Instructions .ROUTE .COMPLEX Qty: 7 0RF Rx Instructions: take 1 cap at bedtime 02/03, take 1 cap q8h on 02/04, 1 cap q12h on 02/05, 1 cap in morning on 02/06 folic acid 1 mg tablet 1 mg PO DAILY prazosin 2 mg capsule 6 mg PO HS Vivitrol 380 mg suspension,extended rel recon 380 mg IM .MONTHLY Rx Instructions: Last had 1 month ago Referrals Referrals: Alicia Mcgee MD [Primary Care Provider] - Discharge Problem: Alcohol withdrawal Qualifiers: Complication of substance-induced condition: with unspecified complication Q ualified Code(s): F10.939 - Alcohol use, unspecified with withdrawal, unspecified Alcoholic gastritis Qualifiers: Chronicity: acute Gastritis bleeding: without bleeding Qualified Code(s): K 29.20 - Alcoholic gastritis without bleeding
[2023-03-13] MEDS ORDERED: OPTIRAY 320 125ml IV ONE (23:40)
--- NOTE | 2023-03-14 00:27 | CT Scan Report ---
Exam(s): CTA CHEST IV Amt: 116 ml opti 320 EXAM: CT Angiography Chest With Intravenous Contrast CLINICAL HISTORY: Reason for exam: cp, sob, acidosis, r/o PE. TECHNIQUE: Axial computed tomographic angiography images of the chest with intravenous contrast. CTDI is 22.17 mGy and DLP is 782.53 mGy-cm. Automated exposure control was utilized for the study. A dose lowering technique was utilized adhering to the principles of ALARA. MIP reconstructed images were created and reviewed. COMPARISON: CT chest on 05/22/2022 FINDINGS: Pulmonary arteries: Unremarkable. No definite pulmonary embolus identified, but evaluation of the distal pulmonary arterial branches is limited by motion artifact. Aorta: No acute findings. No aortic aneurysm or dissection. Lungs: Unremarkable. No mass. No consolidation. Pleural space: Unremarkable. No significant effusion. No pneumothorax. Heart: Unremarkable. No cardiomegaly. No significant pericardial effusion. No evidence of RV dysfunction. Bones/joints: No acute fracture. No dislocation. Soft tissues: Unremarkable. Lymph nodes: Unremarkable. No enlarged lymph nodes. Liver: Hepatic steatosis. Gallbladder and bile ducts: Hyperdense material in the gallbladder may represent artifact versus stones/sludge. IMPRESSION: 1. No definite pulmonary embolus identified, but evaluation of the distal pulmonary arterial branches is limited by motion artifact. 2. No aortic aneurysm or dissection. 3. No acute pulmonary parenchymal abnormality identified. Electronically signed by: Clay Johnson M.D. 03/14/23 00:26 AM
--- NOTE | 2023-03-14 00:30 | CT Scan Report ---
Exam(s): CT ABDOMEN + PELVIS With Contrast IV Amt: 116 ml opti 320 EXAM: CT Abdomen and Pelvis With Intravenous Contrast CLINICAL HISTORY: Reason for exam: n/v, acidosis. TECHNIQUE: Axial computed tomography images of the abdomen and pelvis with intravenous contrast. CTDI is 23.23 mGy and DLP is 1203.36 mGy-cm. Automated exposure control was utilized for the study. A dose lowering technique was utilized adhering to the principles of ALARA. CONTRAST: Patient received 116 ml opti 320 of IV contrast COMPARISON: CT abdomen/pelvis on 05/22/2022 FINDINGS: Lung bases: Unremarkable. No mass. No consolidation. ABDOMEN: Liver: Hepatic steatosis. Gallbladder and bile ducts: Unremarkable. No calcified stones. No ductal dilation. Pancreas: Unremarkable. No mass. No ductal dilation. Spleen: Unremarkable. No splenomegaly. Adrenals: Unremarkable. No mass. Kidneys and ureters: Unremarkable. No hydronephrosis or obstructing stone. Stomach and bowel: Unremarkable. No obstruction. No mucosal thickening. PELVIS: Appendix: Normal appendix. Bladder: Unremarkable. No mass. Reproductive: Unremarkable as visualized. ABDOMEN and PELVIS: Intraperitoneal space: Unremarkable. No free air. No significant fluid collection. Bones/joints: Bilateral L5 pars defects. Grade 1 anterolisthesis of L5 on S1. No acute fracture. No dislocation. Soft tissues: Unremarkable. Vasculature: Unremarkable. No abdominal aortic aneurysm. Lymph nodes: Unremarkable. No enlarged lymph nodes. IMPRESSION: Hepatic steatosis. No acute abnormality. Electronically signed by: Clay Johnson M.D. 03/14/23 00:29 AM
[2023-03-14] MEDS ORDERED: LORazepam 1 MG in SYRINGE 0.5 ML IV PRN ×3 (00:43→05:42)
[2023-03-14] MEDS ORDERED: SODIUM CHLORIDE 0.9% 1,000 ML IV SCH (00:45)
--- NOTE | 2023-03-14 01:21 | History & Physical Report ---
Date of Service March 14, 2023 Assessment & Plan (1) Alcohol withdrawal: Plan: -Pt with history of multiple hospitalizations for alcohol withdrawal including DT seizures presents with withdrawal symptoms -While she does have alcohol level of 262 on admission, given her history of early withdrawal and seemingly the manifestation of usual withdrawal symptoms already, we will begin alcohol withdrawal treatment -AWSS monitoring w/ Ativan PRN -Pt does take gabapentin 300 mg TID for anxiety and sciatica- we will continue this as scheduled BRIT agonists will help treat her withdrawal symptoms -Pt did have Librium taper initiated during last hospitalization in 01/2023, we will defer choice of beginning taper to day team -Continue MVI, thiamine, folate daily -Currently at baseline mental status, hemodynamically stable albeit with mild tachycardia -Telemetry monitoring -Pt did require ICU transfer in last hospitalization for withdrawal monitoring. We will admit to PCU for time being given her stable cardiopulmonary and respiratory status. (2) Alcoholic ketoacidosis: Plan: -Lab abnormalities indicating alcoholic ketoacidosis secondary to dehydration from multiple bouts of emesis/GI losses -Lactate 5.2 elevated on admission and likely due to dehydration rather than infection -Continue aggressive fluid repletion -Monitor CMP for gap closure (3) Vomiting: Plan: -Manifestation of withdrawal symptoms/alcoholic gastritis -Did have one bout of mildly bloody emesis as of her last episode- could represent mild Jill-Garner tear w/o Boerhaave syndrome -Zofran PRN nausea -Fluid repletion ongoing (4) Abdominal pain: Plan: -While this may represent a degree of pancreatitis given pt's risk factors and previous history of such, only minimal tenderness on exam and tolerating liquids w/o pain throughout day -Lipase wnl, CTAP does not indicate pancreatitis -May be largely driven by alcoholic gastritis -Aggressive fluid repletion as above -Famotidine 20 mg IV BID (5) Leukocytosis: Plan: -WBC 15 on admission -Likely due to dehydration/hemoconcentration, low concern for infection presently -Monitor CBC (6) Hyponatremia: Plan: -Na 129 on admission -Very likely beer potomania with contribution from reduced solute intake over past few days -Continue fluid repletion as above -Monitor CMP (7) Transaminitis: Plan: -Mild transaminitis on admission -Noted history of elevated liver enzymes in past -May also have chronic elevation from hepatic steatosis -Monitor CMP (8) Alcoholism: Plan: -Severe alcohol use disorder for which pt has had multiple hospitalizations and rehab stays -Currently on monthly naltrexone therapy -Pt unsure at this time if she would like to pursue rehab on discharge (9) MDD (major depressive disorder): Plan: -Continue duloxetine, Remeron (10) Anxiety: Plan: -Continue buspirone, duloxetine, gabapentin 300 mg TID, Remeron, propranolol, hydroxyzine PRN (11) Sciatica: Plan: -Continue duloxetine, gabapentin 300 mg TID (12) PTSD (post-traumatic stress disorder): Plan: -Continue duloxetine, Remeron, prazosin (13) Irritable bowel syndrome: Plan: -Continue Linzess Plan FENGI: NPO except sips/chips Code status: Full DVT prophylaxis: SCDs Isolation: None Unit: PCU Disposition planning: Pending clinical course History of Present Illness Chief Complaint: Alcohol withdrawal Primary Care Provider: Alicia Mcgee MD 37 yo F with PMH severe alcohol use disorder, multiple hospitalizations for alcohol intoxication and withdrawal, previous DT seizures, previous pancreatitis episodes, PTSD, depression anxiety, sciatica, IBS presenting with tremors. Pt reports nausea, NBNB emesis and reduced oral intake for past several days. Upon awakening at 7 AM on 03/13, she had onset of generalized tremors, diffuse abdominal pain, diffuse headache, chills and chest tightness- these are the withdrawal symptoms she typically has. Pt wanted to come to ER but was unable to secure transport until 6 PM through a friend. While waiting for her friend, she had 10+ episodes of NBNB emesis and attempted to hydrate with water and Gatorade but could not do so. She did have a pint of vodka at 9 AM and felt better but normally drinks a fifth of vodka daily. She did have another episode of emesis while in ER and notes this was very slightly blood-tinged. Pt arrived to ER with HR 100s-130s, BP 140s-160s/90s. Initial evaluation significant for WBC 15, Na 129, AG 33, VBG pH 7.29, pCO2 27, CO2 10, lactate 5.2, AST 111, ALT 90, alcohol level 262. Lipase wnl, troponin wnl. Chest CTA negative. CTAP demonstrating hepatic steatosis. EKG NSR. ER interventions thiamine 200 mg IV, MVI, 1L NSS bolus, Zofran 4 mg IV, Ativan 2 mg IV, famotidine 20 mg IV, 1L dextrose/NSS bolus. At present, pt reports continued tremors, headache and chills but feels much improved after ER interventions. Allergies Allergy/AdvReac Type Severity Reaction Status Date / Time lactose AdvReac Unknown Verified 11/11/22 09:31 Home Medications Medication Instructions Recorded Confirmed Type mirtazapine 15 mg tablet 15 mg PO HS 01/15/22 02/01/23 History linaclotide 145 mcg capsule 145 mcg PO DAILY 04/21/22 02/01/23 History (Linzess) duloxetine 60 mg capsule,delayed 60 mg PO QAM 04/29/22 02/01/23 History release gabapentin 300 mg capsule 300 mg PO TID 05/23/22 02/01/23 History prenat.vits,juana,ixt-xnlo-mjqcr 1 tab PO DAILY 05/23/22 02/01/23 History hydroxyzine pamoate 50 mg capsule 50 mg PO Q6 PRN Anxiety 09/08/22 02/01/23 History folic acid 1 mg tablet 1 mg PO DAILY 10/16/22 02/01/23 History naltrexone microspheres 380 mg 380 mg IM .MONTHLY 10/16/22 02/01/23 History intramuscular suspension,extended release (Vivitrol) prazosin 2 mg capsule 6 mg PO HS 10/16/22 02/01/23 History buspirone 10 mg tablet 10 mg PO TID #90 tabs 11/11/22 02/01/23 Rx propranolol 10 mg tablet 10 mg PO BID #30 tabs 11/11/22 02/01/23 Rx chlordiazepoxide HCl 25 mg capsule See Rx Instructions .Route 02/03/23 Rx .COMPLEX #7 caps Past Med/Surg History Medical History Transaminitis Alcohol withdrawal Hypokalemia Alcoholism Chest pain at rest Alcoholic intoxication History of alcohol withdrawal syndrome History of intussusception Thrombocytopenia Tension headache Alcohol withdrawal Breast lump on left side at 11 o'clock position Hypokalemia Hypomagnesemia Reflux gastritis Miscarriage Alcohol dependence Acute alcohol intoxication Anxiety with depression PTSD (post-traumatic stress disorder) Hepatic steatosis Pancreatitis Alcohol abuse Surgical History S/P dilation and curettage H/O foot surgery Previous section Family History Mother Depression Anxiety Brother Depression Anxiety Denies family history of Ovarian cancer Prostate cancer Diabetes Myocardial infarction Breast cancer Colorectal cancer Hypertension Social History Smoking Status: Never smoker Second Hand Exposure: No; Do You Dip or Chew Tobacco: No; Hx Alcohol Use: Yes Alcohol type: hard liquor Hx Substance Use: No Preferred Language: Georgian Communication Ability: Effective Visual Impairment: No Limitations Hearing Ability: Normal Crime Laboratory Analyst Required: No Beliefs That Will Affect Care: None marital status: Current Living Situation: Parent and Family Current Living Situation Comment: recently discharged from rehab 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[employer] How many Children do You have: 1 Feels Safe at Home: Yes Childhood Exposure to Second-Hand Smoke: No Diet: regular Dental Care, Regularly: Yes Physical Activity Frequency: 5-6 Times per Week Seatbelt Use: always Sunscreen Use: Yes Assistive Devices: None Review of Systems Review of Systems: Per HPI/Subjective Physical Exam Physical Exam: General: tired-appearing, mildly tremulous HEENT: PERRL, EOMI, conjunctivae clear without injection, anicteric sclerae, dry mucous membranes, clear oropharynx without exudate or erythema Neck: supple, trachea midline, no thyromegaly, no JVD, no cervical lymphadenopathy CV: Tachycardic, regular rhythm, normal S1 and S2, no murmurs Resp: CTAB, no increased work of breathing, no crackles or wheezes Abd: Soft, mild diffuse tenderness greatest in LUQ, nondistended, no guarding or rebound, no hepatosplenomegaly MSK: Normal bulk of all four extremities Neuro: AOx3, no focal motor or sensory deficits. Generalized tremor as above. No dystonia. Skin: no rashes or lesions, warm and dry Ext: no LE peripheral edema or erythema, capillary refill <2s in all four extremities, 2+ LE peripheral pulses b/l Results & Data Results & Data Vital Signs (Past 12 Hours) Vital Signs Temp Pulse Pulse Resp BP BP Pulse Ox 03/14/23 01:00 115 H 23 153/89 H 100 03/14/23 00:38 106 H 03/14/23 00:00 106 H 22 130/80 100 03/13/23 23:43 131/73 100 03/13/23 23:03 123 H 18 124/92 99 03/13/23 23:01 124/92 99 03/13/23 20:38 100 03/13/23 20:34 105 H 03/13/23 20:16 111 H 18 163/99 H 100 03/13/23 19:48 36.5 C 132 H 18 147/93 H 99 O2 Del Method 03/14/23 01:00 03/14/23 00:38 03/14/23 00:00 03/13/23 23:43 03/13/23 23:03 Room Air 03/13/23 23:01 03/13/23 20:38 Room Air 03/13/23 20:34 03/13/23 20:16 Room Air 03/13/23 19:48 Room Air Code Status & VTE Plan VTE Prophylaxis Plan VTE Prophylaxis will be ordered: Yes Supervising Physician Co-Signing Physician Notes I have personally seen, evaluated and examined the patient. I have also personally discussed the management of the patient with the resident physician and I agree with the exam findings documented in the history and physical examination and the documented assessment and plan unless otherwise stated below. HEENT: Normocephalic atraumatic pupils are equal round and reactive to light bilaterally. No scleral icterus no conjunctival injection external auditory canals are patent septum is in the midline nose is without discharge oral mucosa is pink and dry without lesion. She interacts appropriately at this time she is alert and oriented x 3 NECK: Supple no rigidity no lymphadenopathy no thyromegaly no carotid bruits no JVD no masses. HEART: Regular rate and rhythm-mildly tachycardic- I do not appreciate any ectopy or rub. No murmur. LUNGS: Clear to auscultation bilaterally and anteriorly with no evidence of adventitious sounds/wheezes rales or rhonchi. ABDOMEN: Soft nontender, no rebound, no peritoneal signs, positive bowel sounds, no appreciable organomegaly. EXTREMITIES: Intact, no peripheral cyanosis, clubbing or edema. Strength is 5 out of 5 in extremities x4, no pathological reflexes. NEUROLOGICAL: Cranial nerves II through XII are grossly intact with no focal deficit elicited upon examination. mild tremor. Assessment/plan: As discussed above. Patient does admit to battling alcoholism in and out of rehab ongoing for the last several months. We will rehydrate her monitor closely for withdrawal, treat her symptomatically at this time. Repeat labs in the a.m. Resident Activity Tracking Resident Involvement: Resident Care Provided Care Provided: Adult Hospital Medicine (1) Alcohol withdrawal Complication of substance-induced condition: with unspecified complication Qualified Code(s): F10.939 - Alcohol use, unspecified with withdrawal, unspecified (9) MDD (major depressive disorder) Active/Remission status: remission status unspecified Major depression recurrence: unspecified whether recurrent Qualified Code(s): F32.9 - Major depressive disorder, single episode, unspecified
[2023-03-14 01:42] LABS: Appearance Urine Clear (Clear); Bacteria Urine Automated Negative (Negative); Bilirubin Urine Negative (Negative); Blood Urine 3+ (Negative); Color Urine Yellow; Epithelial Cell Urine Auto >30 /lpf (0-5); Glucose Urine UA Negative (Negative); Ketones Urine 3+ (Negative); Leukocyte Esterase Urine Negative (Negative); Nitrite Urine Negative (Negative); Protein Urine 1+ (Negative); Specific Gravity Urine > 1.045 (1.000-1.030); Urobilinogen Urine Negative (Negative); pH Urine 5.5 (4.5-7.5)
[2023-03-14 01:59] LABS: Amphetamines+Metham, Urine Neg (Neg); Barbiturates, Urine Neg (Neg); Benzodiazepine, Urine Neg (Neg); Cocaine, Urine Neg (Neg); MDMA (Ecstacy), Urine Neg (Neg); Marijuana, Urine Neg (Neg); Methadone, Urine Neg (Neg); Opiate, Urine Neg (Neg); Phencyclidine, Urine Neg (Neg)
--- NOTE | 2023-03-14 01:59 | Billing Data ---
Date of Service March 14, 2023 Coding Level of Care Code 15145 INT INP/OBS CARE
[2023-03-14] MEDS ORDERED: ONDANSETRON INJ 2 MG/ML 2 ML VIAL IV PRN (02:53)
[2023-03-14] MEDS: LACTATED RINGER'S 1,000 ML IV SCH ×2 (03:05→10:20)
[2023-03-14 06:59] LABS: Anion Gap 17 (3-11); BUN Creatinine Ratio 14.5 (10-20); Blood Urea Nitrogen 10 mg/dl (6-23); Calcium 7.4 mg/dl (8.6-10.3); Carbon Dioxide 17 mmol/L (21-32); Chloride 98 mmol/L (98-107); Creatinine Clr Calc Pharmacy 134.6 ml/min; Est GFR (Non-African American) 110.4 ml/min; Glucose 78 mg/dl (70-99(Fasting)); Potassium 3.8 mmol/L (3.5-5.1); Sodium 132 mmol/L (136-145)
[2023-03-14 07:07] LABS: Hematocrit (blood only) 29.3 % (37.0-47.0); Hemoglobin 10.3 g/dl (12.0-16.0); Mean Corpuscular Hgb Conc 35.2 g/dL (32.0-36.0); Mean Platelet Volume 10.9 fL (9.4-12.4); Platelet Count 138 K/uL (130-400); RDW Coefficient of Variation 16.8 % (11.5-14.5); RDW Standard Deviation 55.4 fL (36.4-46.3); Red Blood Count 3.22 M/uL (4.20-5.40); White Blood Count 8.21 K/ul (4.8-10.8)
[2023-03-14 07:22] LABS: Alanine Aminotransferase 59 U/L (7-52); Alkaline Phosphatase 49 U/L (34-104); Aspartate Aminotransferase 72 U/L (13-39); Bilirubin,Total 1.4 mg/dl (0.2-1.0); Magnesium 1.5 mg/dl (1.7-2.4); Phosphorus < 1.0 mg/dl (2.5-4.9)
[2023-03-14] MEDS ORDERED: POTASSIUM PHOS 3 MMOL/1 ML INFUSION IV ONE ×2 (07:28→16:18)
[2023-03-14] MEDS ORDERED: POTASSIUM PHOSPHATE 30 MMOL in SODIUM CHLORIDE 0.9% 500 ML IV ONE (07:45)
[2023-03-14] MEDS: FAMOTIDINE 20 MG in SYRINGE 3 ML IV SCH ×2 (07:57→20:18)
[2023-03-14] MEDS: busPIRone 5 MG TAB PO SCH ×3 (07:58→20:20)
[2023-03-14] MEDS: PROPRANOLOL HCL 10 MG TAB PO SCH ×2 (07:58→20:20)
[2023-03-14] MEDS: THIAMINE HCL 100 MG TAB PO SCH ×2 (07:58→20:18)
[2023-03-14] MEDS: DULoxetine HCL 60 MG CAP PO SCH (07:58)
[2023-03-14] MEDS: FOLIC ACID 1 MG TAB PO SCH (07:58)
[2023-03-14] MEDS: MULTIVITAMIN TAB PO SCH (07:58)
[2023-03-14] MEDS: LINACLOTIDE 145 MCG CAPSULE PO SCH (07:58)
[2023-03-14] MEDS: GABAPENTIN 300 MG CAP PO SCH ×3 (07:59→20:20)
[2023-03-14] MEDS: hydrOXYzine HCl 25 MG TAB PO PRN (07:59)
--- NOTE | 2023-03-14 08:33 | XRay Report ---
SINGLE VIEW CHEST CLINICAL HISTORY: Atypical chest pain FINDINGS: 2 AP, portable, upright chest radiographs are compared to study dated 10/16/2022 and correla rocael with chest CT dated 05/22/2022. The examination is degraded by portable technique and apical lordo tic positioning. The cardiomediastinal silhouette is unremarkable. The lungs and pleural spaces are c lear. No pneumothorax is seen. The bony thorax is grossly intact. IMPRESSION: No active disease in the chest. ACT 112: Negative or not required by law. Electronically signed by: Todd Espinosa M.D. 03/14/2023 8:32 AM
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
[2023-03-14] MEDS: chlordiazePOXIDE HCl 25 MG CAP PO SCH ×2 (12:09→20:19)
--- NOTE | 2023-03-14 12:17 | Electrocardiogram Report ---
Test Reason : Blood Pressure : / mmHG Vent. Rate : 113 BPM Atrial Rate : 113 BPM P-R Int : 128 ms QRS Dur : 076 ms QT Int : 344 ms P-R-T Axes : 064 066 019 degrees QTc Int : 471 ms Sinus tachycardia Nonspecific ST and T wave abnormality Abnormal ECG When compared with ECG of 01-FEB-2023 12:18, Nonspecific T wave abnormality, worse in Inferior leads Confirmed by Laurent Merchant ([id number]) on 03/14/2023 12:17:04 PM Referred By: REFERRED SELF Confirmed By:Laurent Merchant
[2023-03-14] MEDS: PANTOprazole 40 MG TAB PO SCH (16:08)
[2023-03-14] MEDS ORDERED: POTASSIUM PHOSPHATE 15 MMOL in SODIUM CHLORIDE 0.9% 250 ML IV ONE (17:00)
[2023-03-14] MEDS ORDERED: PRAZOSIN HCL 1 MG CAP PO SCH (21:00)
[2023-03-14] MEDS ORDERED: PANTOprazole 40 MG TAB PO SCH (21:00)
[2023-03-14] MEDS ORDERED: MIRTAZAPINE TAB 15 MG TAB PO SCH (21:00)
[2023-03-15 07:23] LABS: Basophils # (auto) 0.04 K/uL (0.00-0.20); Basophils % (auto) 0.8 %; Eosinophils # (auto) 0.06 K/uL (0.00-0.50); Eosinophils % (auto) 1.1 %; Hematocrit (blood only) 30.9 % (37.0-47.0); Hemoglobin 10.8 g/dl (12.0-16.0); Immature Granulocytes # (auto) 0.03 K/uL (0.01-0.20); Immature Granulocytes % (auto) 0.6 %; Lymphocytes # (auto) 1.08 K/uL (1.20-3.40); Lymphocytes % (auto) 20.5 %; Mean Corpuscular Volume 91.4 fL (80.0-100.0); Mean Platelet Volume 11.5 fL (9.4-12.4); Monocytes # (auto) 0.32 K/uL (0.11-0.59); Monocytes % (auto) 6.1 %; Neutrophils # (auto) 3.74 K/uL (1.40-6.50); Neutrophils % (auto) 70.9 %; Platelet Count 121 K/uL (130-400); RDW Coefficient of Variation 16.9 % (11.5-14.5); RDW Standard Deviation 56.3 fL (36.4-46.3); Red Blood Count 3.38 M/uL (4.20-5.40); White Blood Count 5.27 K/ul (4.8-10.8)
[2023-03-15 07:53] LABS: BUN Creatinine Ratio 11.5 (10-20); Calcium 8.7 mg/dl (8.6-10.3); Creatinine Clr Calc Pharmacy 151.8 ml/min; Est GFR (African American) 133.3 ml/min; Potassium 3.3 mmol/L (3.5-5.1)
[2023-03-15 07:57] LABS: Albumin Globulin Ratio 1.8 (0.9-2); Albumin Level 4.1 gm/dl (3.4-5.0); Bilirubin,Total 1.8 mg/dl (0.2-1.0); Globulin 2.3 gm/dl (2.5-4.0); Phosphorus 1.3 mg/dl (2.5-4.9); Total Protein 6.4 gm/dl (6.0-8.3)
[2023-03-15] MEDS: PANTOprazole 40 MG TAB PO SCH (08:04)
[2023-03-15] MEDS: GABAPENTIN 300 MG CAP PO SCH ×2 (08:04→14:13)
[2023-03-15] MEDS: MULTIVITAMIN TAB PO SCH (08:04)
[2023-03-15] MEDS: LINACLOTIDE 145 MCG CAPSULE PO SCH (08:04)
[2023-03-15] MEDS: THIAMINE HCL 100 MG TAB PO SCH (08:04)
[2023-03-15] MEDS: PROPRANOLOL HCL 10 MG TAB PO SCH (08:04)
[2023-03-15] MEDS: DULoxetine HCL 60 MG CAP PO SCH (08:04)
[2023-03-15] MEDS: FOLIC ACID 1 MG TAB PO SCH (08:05)
[2023-03-15] MEDS: busPIRone 5 MG TAB PO SCH ×2 (08:05→14:13)
[2023-03-15] MEDS: hydrOXYzine HCl 25 MG TAB PO PRN (08:12)
[2023-03-15] MEDS: chlordiazePOXIDE HCl 25 MG CAP PO SCH (08:12)
[2023-03-15] MEDS: FAMOTIDINE 20 MG in SYRINGE 3 ML IV SCH (09:01)
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
[2023-03-15] MEDS: POT PHOSPHATE MONOBASIC W/ SOD TAB PO SCH ×2 (14:13→16:41)
--- NOTE | 2023-03-15 14:47 | Discharge Summary ---
Date of Service March 15, 2023 Admission HPI Per Admitting Provider 37 yo F with PMH severe alcohol use disorder, multiple hospitalizations for alcohol intoxication and withdrawal, previous DT seizures, previous pancreatitis episodes, PTSD, depression anxiety, sciatica, IBS presenting with tremors. Pt reports nausea, NBNB emesis and reduced oral intake for past several days. Upon awakening at 7 AM on 03/13, she had onset of generalized tremors, diffuse abdominal pain, diffuse headache, chills and chest tightness- these are the withdrawal symptoms she typically has. Pt wanted to come to ER but was unable to secure transport until 6 PM through a friend. While waiting for her friend, she had 10+ episodes of NBNB emesis and attempted to hydrate with water and Gatorade but could not do so. She did have a pint of vodka at 9 AM and felt better but normally drinks a fifth of vodka daily. She did have another episode of emesis while in ER and notes this was very slightly blood-tinged. Pt arrived to ER with HR 100s-130s, BP 140s-160s/90s. Initial evaluation significant for WBC 15, Na 129, AG 33, VBG pH 7.29, pCO2 27, CO2 10, lactate 5.2, AST 111, ALT 90, alcohol level 262. Lipase wnl, troponin wnl. Chest CTA negative. CTAP demonstrating hepatic steatosis. EKG NSR. ER interventions thiamine 200 mg IV, MVI, 1L NSS bolus, Zofran 4 mg IV, Ativan 2 mg IV, famotidine 20 mg IV, 1L dextrose/NSS bolus. At present, pt reports continued tremors, headache and chills but feels much improved after ER interventions. Admission Exam Per Admitting Provider General: tired-appearing, mildly tremulous HEENT: PERRL, EOMI, conjunctivae clear without injection, anicteric sclerae, dry mucous membranes, clear oropharynx without exudate or erythema Neck: supple, trachea midline, no thyromegaly, no JVD, no cervical lymphadenopathy CV: Tachycardic, regular rhythm, normal S1 and S2, no murmurs Resp: CTAB, no increased work of breathing, no crackles or wheezes Abd: Soft, mild diffuse tenderness greatest in LUQ, nondistended, no guarding or rebound, no hepatosplenomegaly MSK: Normal bulk of all four extremities Neuro: AOx3, no focal motor or sensory deficits. Generalized tremor as above. No dystonia. Skin: no rashes or lesions, warm and dry Ext: no LE peripheral edema or erythema, capillary refill <2s in all four extremities, 2+ LE peripheral pulses b/l Principal Diagnosis Alcohol Withdrawal Discharge Exam GEN: AAO x4, calm, pleasant, NAD RESP: CTAB, Symmetric chest expansion with respirations, Normal Respiratory Effort, No respiratory distress CV: RRR, no m/r/g, no additional heart sounds ABD: Soft, Non-Distended, nontender, no guarding, no rebound, Normal Bowel Sounds, No Hepatosplenomegaly, No Masses EXT: No edema in bilateral LE, no calf tenderness DERM: warm, dry, pink Discharge Data Allergies Allergy/AdvReac Type Severity Reaction Status Date / Time lactose AdvReac Unknown Verified 03/14/23 15:41 Consultations 03/14/23 00:37 ED Decision to Admit Stat Ordered Studies 03/13/23 22:52 CT abd pelvis IV con only Stat CT angio chest PE protocol Stat Hospital Course (1) Alcohol withdrawal: Resolved -Pt with history of multiple hospitalizations for alcohol withdrawal including DT seizures presents with withdrawal symptoms -Chlordiazepoxide tapering -- change today to 10mg bid -CM provided yellow D&A resource book as she is interested in outpatient counseling and possible Vivitrol injections (2) Alcoholism: Chronic, not controlled -Severe alcohol use disorder for which pt has had multiple hospitalizations and rehab stays -Currently on monthly naltrexone therapy -CM provided yellow D&A resource book as she is interested in outpatient counseling and possible Vivitrol injections (3) Alcoholic ketoacidosis: Resolved -Lab abnormalities indicating alcoholic ketoacidosis secondary to dehydration from multiple bouts of emesis/GI losses -Lactate 5.2 elevated on admission ad decrease to 3.4 after IVF hydration - Encouraged to continue oral re-hydration after discharge (4) Vomiting: Resolved -Manifestation of withdrawal symptoms/alcoholic gastritis -Did have one bout of mildly bloody emesis as of her last episode- could represent mild Jill-Garner tear w/o Boerhaave syndrome - Not recurred (5) Abdominal pain: Acute, stable -Unlikely to be due to pancreatitis -- Lipase wnl, CTAP does not indicate pancreatitis -May be largely driven by alcoholic gastritis -Patient encouraged to continue Famotidine 20 mg BID after discharge (6) Leukocytosis: Resolved -WBC 15 on admission 5.27 today - Likely result of hemoconcentration (7) Hyponatremia: Acute, stable -Na 129 on admission 135 today -Very likely beer potomania with contribution from reduced solute intake over past few days (8) Transaminitis: Acute, stable -Mild transaminitis on admission - Likely from hepatic steatosis - Decreasing trend (9) MDD (major depressive disorder): Chronic, stable -Continue duloxetine, Remeron (10) Anxiety: Chronic, stable -Continue buspirone, duloxetine, gabapentin 300 mg TID, Remeron, propranolol, hydroxyzine PRN (11) Sciatica: Chronic, stable -Continue duloxetine, gabapentin 300 mg TID (12) PTSD (post-traumatic stress disorder): Chronic, stable -Continue duloxetine, Remeron, prazosin (13) Irritable bowel syndrome: Chronic, stable -Continue Linzess (14) Hypophosphatemia: Acute - Phosphate levels <1 on admission Repleted - Today levels are 1.3 Patient encouraged to increase oral nutrition and hysration Plan Patient evaluated at bedside and found to be clinically and hemodynamically stable, and fit to be discharged. Total Time Total Time Spent Total Time Spent (In Minutes): As per attending attestation. Discharge Plan Discharge Items Patient Disposition: Home - Self-Care Reason For Visit: ALCOHOL WITHDRAWAL Discharge Diagnosis: alcohol withdrawal Activity: Per Instructions section Non-emergency contact: Primary Care Provider Call non-emergency contact if: your symptoms worsen Follow-up/Referrals: Alicia Mcgee MD [Primary Care Provider] - 03/26/23 3:20 pm Diet: Regular Addtl Attending Provider Instructions: You were admitted to the hospital for management of alcohol withdrawal symptoms. You were treated with Librium (benzodiazepine) taper to correct your withdrawal symptoms, as well as medications to control your nausea such as Zofran and Protonix. We discussed the possible intermediate frame tender risks of continued alcohol abuse such as liver toxicity and liver disease (e.g. cirrhosis), pancreatitis, etc. You also spoke with the Psychiatric liaison to discuss your alcohol abuse disorder and approaches / resources you could use to manage this condition. We strongly encourage you to utilize these resources, and to continue following up with your naltrexone therapy. A discharge summary will be sent to your primary care physician to ensure continuity of care. Please bring this discharge summary with you to your next office appointment so that your provider can review it at that time. Follow-up appointments: Make a follow-up appointment with your PCP within the next week. It is very important that you follow up with them shortly after discharge from the hospital. Keep all your follow-up appointments as already scheduled. If you cannot make an appointment, notify your provider. Medications: Your medication list has been reviewed and reconciled upon discharge to ensure a ccuracy and continuity of care. An updated list of all your medications is included with your hospital discharge paperwork. Please review this list closely, and make note of any changes. If you have any issues filling these prescriptions, please call [phone] and ask to leave a message for Dr. Villa. Take your medications as instructed; do not skip a dose of your medicines. Make sure all of your doctors know every medicine you are taking (including [id number] medicines, vitamins, and supplements). Call your primary care provider before taking any new medicines (including over- the-counter medicines, vitamins, and supplements), because some of these may interact with your current medications, or may make your symptoms worse. Tell your primary care provider if you cannot afford your medications. CONTACT YOUR PRIMARY CARE PROVIDER if you experience any of the following: Worsening of symptoms Fever, chills, or fatigue Difficulty following your treatment plan, or difficulty taking medications CALL 911 OR GO TO THE EMERGENCY DEPARTMENT if you experience any of the following: Sudden, severe abdominal pain or nausea/vomiting Severe chest pain, or chest pain that radiates (moves) to your jaw or arm Sudden, severe shortness of breath or difficulty breathing Thank you for allowing us to participate in your care. Pending Studies at Discharge: No Stand-Alone Forms: My [facility] Infusion Resource, Smoking Cessation Medications and DC Order Prescriptions: New naltrexone 50 mg tablet 50 mg PO DAILY Qty: 30 0RF chlordiazepoxide HCl 10 mg capsule 10 mg PO BID Qty: 3 0RF Continued duloxetine 60 mg capsule,delayed release(DR/EC) 60 mg PO QAM propranolol 10 mg tablet 10 mg PO BID Qty: 30 6RF mirtazapine 15 mg tablet 15 mg PO HS Linzess 145 mcg capsule 145 mcg PO DAILY gabapentin 300 mg capsule 300 mg PO TID prenat.vits,juana,uny-[id number]-[id number] Tablet 1 tab PO DAILY hydroxyzine pamoate 50 mg capsule 50 mg PO Q6 PRN (Reason: Anxiety) folic acid 1 mg tablet 1 mg PO DAILY prazosin 1 mg capsule 3 mg PO HS buspirone 7.5 mg tablet 7.5 mg PO TID Discharge Orders: Discharge Order (Routine); Ordered 03/15/23 Ordered By: Christa Oreilly/Other Patient Handouts: Addiction Disease, Alcoholism Be Part Solution, Alcoholism Resources, Alcoholism: Getting Help, Alcohol Addiction, Addiction: Your Treatment Options, Addiction Recovery Counseling, Addiction Recovery Relapse Admission Data Admit Date/Time: 03/14/23 01:18 Attending Provider: Esperanza Webber Admit Provider: Thalia Morris Primary Care Provider: Alicia Mcgee Other Providers: Corey Kamara Other Interventions: Discharge Summary Assessment (RN) Last Done: 03/15/23 14:28 Supervising Physician Co-Signing Physician Notes Attending Physician Supervision Note: I independently interviewed and examined the patient and verified the méndez history and physical, reviewed labs and image studies and agree with findings and care plan noted above. Doing well and wants to go home. tremors resolved. vitals noted. AAOx3, heart - regular, no respiratory distress. intact insight/judgement Alcohol withdrawal - AWSS score zero after starting librium. Finish rest of librium taper at home - rx sent. Severe AUD with rise in transaminases - was on oral naltrexone until a month ago. rx sent to re-start at home. D and A counselling - to re-establish. Resources provided. AGMA - sec to Alc intoxication - resolved Vomiting - from alc intoxication. resolved. PTSD/Depression - f/u with primary care. Resident Activity Tracking Resident Involvement: Resident Care Provided Care Provided: Adult Hospital Medicine
== END 2023-03-15 17:29 | disposition home or self-care (01) | DRG 897 ==
LOC: ED 19:35 → 2S 03-14 01:18 → SUATTDRO 03-14 01:18 → 2S 03-14 02:21

== ENCOUNTER 2023-04-29 19:06 | Inpatient (IN) ==
--- NOTE | 2023-04-29 19:14 | ED Triage Note ---
Date of Service April 29, 2023 Provider in Triage Author: Wilbur Patton History of Present Illness This patient was briefly evaluated while in triage. An abbreviated physical exam was performed. This patient is a 37-year-old Female who presents to the ED for evaluation of alcohol withdrawal. Reports seizure like activity today. Last drink this morning. Reports seizure after drink and mother found her, unwitnessed. Physical Exam Constitutional: alert and oriented x3. no acute distress. HEENT: normocephalic, atraumatic. normal conjunctiva.PERRLA. EOM's grossly intact. Respiratory: equal chest rise. normal respiratory effort, no accessory muscle use. Cardiovascular: regular rate and rhythm. MSK: moves all 4 extremities spontaneously Psych:appropriate mood and affect. Initial orders for labs and / or imaging were placed and patient was taken immediately to treatment room for evaluation. Please see further documentation for the full ED course. MDM / Impression Impression Impression: Alcohol use disorder, Seizure
[2023-04-29] MEDS ORDERED: diazePAM 5 MG/ML 10ML VIAL IV STA ×2 (19:29→22:11)
[2023-04-29] MEDS ORDERED: MULTI-VITAMIN INFUSION 10 ML, THIAMINE HCL 100 MG, FOLIC ACID 1 MG in SODIUM CHLORIDE 0... IV ONE (19:29)
[2023-04-29] MEDS ORDERED: ONDANSETRON INJ 2 MG/ML 2 ML VIAL IV STA (19:29)
--- NOTE | 2023-04-29 20:15 | Emergency Department Note ---
Impression & Plan Alcohol use disorder, Seizure ED Provider Note Provider: Wilbur Patton MD DATE OF SERVICE: 04/29/2023 CHIEF COMPLAINT: Seizure, withdrawal HISTORY OF PRESENT ILLNESS: Patient is a 37-year-old female unfortunate history of alcohol abuse presenting today after reported seizure earlier today. Patient states her this afternoon was in her bedroom and had a seizure-like event. Had incontinence. Not bite her tongue. Woke up on her bed found by mother. History of alcohol withdrawal seizures. Last drink of alcohol this morning. States she was in [facility] in the last week or 2 for withdrawal as well. Denies other drug use. Had a shaky somewhat incoherent brief episode in the car on the way here. States her nightmare anxiety issues are also flaring. Has been in contact with her [facility] drug and alcohol with plans for [place] when medically cleared and stable. Maybe a little bit of pain in the right lower chest wall but denies significant nausea at this time or other shortness of breath. PAST MEDICAL HISTORY: As noted above MEDICATIONS: Reviewed with her at bedside multiple medications. SOCIAL HISTORY: Alcohol abuse PHYSICAL EXAM: GENERAL: alert and oriented in no acute distress on stretcher slightly tremulous. Head: normocephalic and atraumatic EYES: No injection, discharge or icterus. PERRL, EOMI. NECK: Trachea midline. Supple no significant posterior cervical spine tenderness. ENT: Mucous membranes pink and moist. Pharynx without erythema or exudate. LUNGS: Airway patent. No retractions. Breath sounds clear with good air entry bilaterally. HEART: Regular tachycardic rate and rhythm. Some slight right lower chest wall tenderness without crepitus ABDOMEN: Soft and non-tender, without guarding or rebound. SKIN: Acyanotic, warm, dry, without rashes EXTREMITIES: Without swelling, tenderness or deformity NEUROLOGICAL: No focal deficits. No aphasia. No facial droop or slurred speech. Slightly tremulous. Normal strength and tone in the extremities. Sensation to gross touch normal. Psych: Denies SI or HI. Denies hallucinations. Reports anxiety issues however nightmares at times. EK bpm sinus rhythm without PVC. No acute ST segment elevation with lateral T wave flattening. QTc 485. CONTINUOUS CARDIAC MONITORING: was ordered and showed a heart rate of 80s-90s bpm in sinus rhythm 1 view chest x-ray per my interpretation: No evidence of pneumothorax, free air, or rib fracture. Normal cardiac silhouette. Patient's laboratory studies and imaging reviewed. Differential includes Alcohol intoxication, toxicologic, infection, hypoglycemia, electrolyte abnormalities, cardiac sources, intracerebral event, neurologic, trauma, as well as other pathologies. IMPRESSION/MEDICAL DECISION MAKING: CT head completed given episode today and possible seizure without acute findings. Chest x-ray per my interpretation with evidence of significant pathology. Given the questionable history of seizures given initial small dose of Valium as she is somewhat tremulous. Basic blood work obtained here without significant anemia leukocytosis. Mild hyponatremia likely due to chronic alcohol use. Actively related to alcohol intake as is the LFT abnormality. Alcohol level still significantly elevated low suspicion for acute alcohol withdrawal at this time. Does not seem to be meningitic. Doubt significant intra-abdominal or thoracic trauma or abnormality as bili is really without significant tenderness. Given a banana bag here. Will bring in for further care and monitored status given her history of alcohol withdrawal seizure and possible seizure event today. Doubt this is cardiac in nature. Hospitalist contacted. DIAGNOSIS: Alcohol abuse, alcohol intoxication, seizure-like event DISPOSITION: Hospitalist will evaluate Patient was agreeable with this plan. Past Med/Surg History Medical History (Updated 04/29/23 @ 22:02 by Wilbur Patton M.D.) Hypophosphatemia Irritable bowel syndrome Hyponatremia Leukocytosis Elevated lactic acid level Alcoholic gastritis High anion gap metabolic acidosis Alcoholic ketoacidosis Alcohol withdrawal Alcoholic intoxication Sciatica Transaminitis Hypokalemia Alcoholism Chest pain at rest History of intussusception Thrombocytopenia Tension headache Breast lump on left side at 11 o'clock position Hypomagnesemia Reflux gastritis Miscarriage Anxiety with depression PTSD (post-traumatic stress disorder) Hepatic steatosis Pancreatitis Surgical History S/P dilation and curettage H/O foot surgery Previous section Family History Mother Depression Anxiety Brother Depression Anxiety Denies family history of Ovarian cancer Prostate cancer Diabetes Myocardial infarction Breast cancer Colorectal cancer Hypertension Social History Smoking Status: Never smoker Second Hand Exposure: No; Do You Dip or Chew Tobacco: No; Hx Alcohol Use: Yes Alcohol type: hard liquor Hx Substance Use: No Preferred Language: Ukrainian Communication Ability: Effective Visual Impairment: No Limitations Hearing Ability: Normal Baker Paint Required: No Beliefs That Will Affect Care: None marital status: Current Living Situation: Parent and Family Current Living Situation Comment: recently discharged from rehab 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[employer] How many Children do You have: 1 Feels Safe at Home: Yes Childhood Exposure to Second-Hand Smoke: No Diet: regular Dental Care, Regularly: Yes Physical Activity Frequency: 5-6 Times per Week Seatbelt Use: always Sunscreen Use: Yes Assistive Devices: Glasses Allergies Allergies Allergy/AdvReac Type Severity Reaction Status Date / Time lactose AdvReac Intermediate GI DISTRESS Verified 04/29/23 20:28 Home Meds Home Medications Medication Instructions Recorded Confirmed mirtazapine 15 mg tablet 15 mg PO HS 01/15/22 04/29/23 linaclotide 145 mcg capsule 145 mcg PO DAILY 04/21/22 04/29/23 (Linzess) duloxetine 60 mg capsule,delayed 60 mg PO QAM 04/29/22 04/29/23 release gabapentin 300 mg capsule 300 mg PO TID 05/23/22 04/29/23 hydroxyzine pamoate 50 mg capsule 50 mg PO Q6 PRN Anxiety 09/08/22 04/29/23 folic acid 1 mg tablet 1 mg PO DAILY 10/16/22 04/29/23 prazosin 1 mg capsule 4 mg PO HS 03/14/23 04/29/23 buspirone 10 mg tablet 10 mg PO TID 04/29/23 04/29/23 duloxetine 30 mg capsule,delayed 30 mg PO DAILY 04/29/23 04/29/23 release sprinkle potassium chloride 40 mEq/15 mL 40 meq PO DAILY 04/29/23 04/29/23 oral liquid vit no.95-ferrous 1 tab PO DAILY 04/29/23 04/29/23 fumarate 28 mg-folic acid 800 mcg tablet () Previous Rx's Medication Instructions Recorded propranolol 10 mg tablet 10 mg PO BID #30 tabs 11/11/22 Results & Data (ED) Vital Signs Vital Signs - 24 hr 04/29/23 19:11 04/29/23 20:43 04/29/23 20:43 Temperature 36.6 C Temperature Source Temporal Artery Scan Pulse Rate 95 H 94 H Pulse Rate [Apical] 95 H Pulse Rhythm Regular Respiratory Rate 18 22 22 Respiratory Effort / Characteristics Non-Labored Spontaneous Non-Labored Respiratory Depth Normal Normal Blood Pressure 150/112 H Blood Pressure [Left Arm] 125/91 Blood Pressure Mean 124 Blood Pressure Mean [Left Arm] 102 Pulse Oximetry 99 97 98 Oxygen Delivery Method Room Air Room Air Room Air Sepsis Recent Fever Within 48 Hours No Sepsis New/Unexplained Change in Mental Status No Sepsis Action Taken by Nursing No Action Required 04/29/23 22:00 Temperature Temperature Source Pulse Rate Pulse Rate [Apical] 94 H Pulse Rhythm Respiratory Rate 18 Respiratory Effort / Characteristics Non-Labored Respiratory Depth Normal Blood Pressure Blood Pressure [Left Arm] 137/95 Blood Pressure Mean Blood Pressure Mean [Left Arm] 109 Pulse Oximetry 100 Oxygen Delivery Method Room Air Sepsis Recent Fever Within 48 Hours Sepsis New/Unexplained Change in Mental Status Sepsis Action Taken by Nursing Laboratory Data 04/29/23 20:00 04/29/23 20:00 Lab Results 04/29/23 04/29/23 04/29/23 Range/Units 19:36 20:00 20:05 WBC 8.81 (4.8-10.8) K/ul RBC 4.44 (4.20-5.40) M/uL Hgb 14.4 (12.0-16.0) g/dl Hct 40.7 (37.0-47.0) % MCV 91.7 (80.0-100.0) fL MCH 32.4 (25.0-34.0) pg MCHC 35.4 (32.0-36.0) g/dL RDW Std Deviation 44.3 (36.4-46.3) fL RDW Coeff of [place] 13.2 (11.5-14.5) % Plt Count 230 (130-400) K/uL MPV 9.8 (9.4-12.4) fL Immature Gran % (Auto) 0.5 % Neut % (Auto) 76.0 % Lymph % (Auto) 16.6 % [place] % (Auto) 6.0 % Eos % (Auto) 0.1 % Baso % (Auto) 0.8 % Neut # (Auto) 6.70 H (1.40-6.50) K/uL Lymph # (Auto) 1.46 (1.20-3.40) K/uL [place] # (Auto) 0.53 (0.11-0.59) K/uL Eos # (Auto) 0.01 (0.00-0.50) K/uL Baso # (Auto) 0.07 (0.00-0.20) K/uL Immature Gran # (Auto) 0.04 (0.01-0.20) K/uL PT 9.9 (9.0-12.0) Seconds INR 0.9 (0.9-1.1) Sodium 129 L (136-145) mmol/L Potassium 4.5 (3.5-5.1) mmol/L Chloride 88 L (98-107) mmol/L Carbon Dioxide 19 L (21-32) mmol/L Anion Gap 22 H (3-11) BUN 10 (6-23) mg/dl Creatinine 0.69 (0.6-1.2) mg/dl Est Cr Clr Drug Dosing 123.6 ml/min Est GFR ( Amer) 128.0 ml/min Est GFR (Non-Af Amer) 110.4 ml/min BUN/Creatinine Ratio 14.5 (10-20) Glucose 95 (70-99(Fasting)) mg/dl Calcium 8.8 (8.6-10.3) mg/dl Magnesium 1.7 (1.7-2.4) mg/dl Total Bilirubin 0.8 (0.2-1.0) mg/dl AST 186 H (13-39) U/L ALT 67 H (7-52) U/L Alkaline Phosphatase 68 (34-104) U/L Total Protein 7.8 (6.0-8.3) gm/dl Albumin 4.7 (3.4-5.0) gm/dl Globulin 3.1 (2.5-4.0) gm/dl Albumin/Globulin Ratio 1.5 (0.9-2) Urine Color Yellow Urine Appearance Cloudy A (Clear) Urine pH 5.5 (4.5-7.5) Ur Specific [place] 1.023 (1.000-1.030) Urine Protein 1+ H (Negative) Urine Glucose (UA) Negative (Negative) Urine Ketones 3+ H (Negative) Urine Blood 1+ H (Negative) Urine Nitrite Negative (Negative) Urine Bilirubin Negative (Negative) Urine Urobilinogen Negative (Negative) Ur Leukocyte Esterase Negative (Negative) Urine WBC (Auto) 1-5 (0-5) /hpf Urine RBC (Auto) 5-10 H (0-4) /hpf U Hyaline Cast (Auto) 1-5 (0-5) /lpf U Epithel Cells (Auto) >30 H (0-5) /lpf Urine Bacteria (Auto) 2+ H (Negative) POC Ur Test NEG (NEG) Urine Opiates Screen Neg (Neg) Ur Methadone, Qual Neg (Neg) Urine Barbiturates Pos H (Neg) Ur Phencyclidine (PCP) Neg (Neg) U Amphetamin/Meth Scrn Neg (Neg) MDMA (Ecstasy) Screen Neg (Neg) U Benzodiazepines Scrn Neg (Neg) Ur Cocaine Metabolite Neg (Neg) U Marijuana (THC) Screen Neg (Neg) Ethyl Alcohol mg/dL 340.1 H (<10.0) mg/dl Administered Medications Discontinued Medications Diazepam (Diazepam 5 Mg/Ml 10ml Vial) 5 mg IV NOW STA Stop: 04/29/23 19:30 Last Admin: 04/29/23 20:12 Dose: 5 mg Documented By: MMG Multivitamins 10 ml/ Thiamine HCl 100 mg/ Folic Acid 1 mg/Sodium Chloride 1,011.2 mls @ 500 mls/hr IV .Q2H2M ONE Stop: 04/29/23 21:30 Last Admin: 04/29/23 20:15 Dose: 500 mls/hr Documented By: ARLETH Ondansetron HCl (Ondansetron Inj 2 Mg/Ml 2 Ml Vial) 4 mg IV NOW STA Stop: 04/29/23 19:30 Last Admin: 04/29/23 20:12 Dose: 4 mg Documented By: MMG Imaging Data Radiologist's Impression: Head CT 04/29/23 19:14 Exam(s): CT HEAD Without Contrast EXAM: CT Head Without Intravenous Contrast CLINICAL HISTORY: Reason for exam: seizure, headache, alcohol wdr. TECHNIQUE: Axial computed tomography images of the head/brain without intravenous contrast. CTDI is 38.97 mGy and DLP is 625.8 mGy-cm. Automated exposure control was utilized for the study. A dose lowering technique was utilized adhering to the principles of ALARA. COMPARISON: CT head 11/24/2022. FINDINGS: Brain: Unremarkable. No hemorrhage. No significant white matter disease. No edema. Ventricles: Unremarkable. No ventriculomegaly. Bones/joints: Unremarkable. No acute fracture. Soft tissues: Unremarkable. Sinuses: Unremarkable as visualized. Mastoid air cells: Unremarkable as visualized. No mastoid effusion. IMPRESSION: No intracranial hemorrhage or other acute intracranial abnormality identified. Electronically signed by: Jaquan Davis MD 04/29/23 21:05 PM Discharge Plan Visit Data Chief Complaint: Alcohol Withdrawal Stated Complaint: Alcohol Withdrawal, SIEZURE 4PM ED Provider: Wilbur Patton Discharge Problem: Alcohol use disorder, Seizure Patient Disposition: Being Evaluated by Hospitalist Condition: Fair Forms Stand Alone Forms: [facility] [employer], Suicide Prevention Resources Prescriptions Prescriptions: No Action duloxetine 60 mg capsule,delayed release(DR/EC) 60 mg PO QAM Rx Instructions: TOTAL DOSE 90 MG--TAKES WITH 30 MG CAP. propranolol 10 mg tablet 10 mg PO BID Qty: 30 6RF mirtazapine 15 mg tablet 15 mg PO HS Linzess 145 mcg capsule 145 mcg PO DAILY gabapentin 300 mg capsule 300 mg PO TID hydroxyzine pamoate 50 mg capsule 50 mg PO Q6 PRN (Reason: Anxiety) potassium chloride 40 mEq/15 mL liquid 40 meq PO DAILY buspirone [BuSpar] 10 mg Tablet 10 mg PO TID PNV cmb#95-ferrous fumarate-FA [] 28 mg iron- 800 mcg Tablet 1 tab PO DAILY duloxetine 30 mg Capsule, Delayed Rel Sprinkle 30 mg PO DAILY Rx Instructions: TOTAL DOSE 90 MG--TAKES WITH 60 MG CAP. folic acid 1 mg tablet 1 mg PO DAILY prazosin 1 mg capsule 4 mg PO HS Referrals Referrals: PCP,NO [Primary Care Provider] -
[2023-04-29 20:26] LABS: Appearance Urine Cloudy (Clear); Bacteria Urine Automated 2+ (Negative); Bilirubin Urine Negative (Negative); Blood Urine 1+ (Negative); Color Urine Yellow; Epithelial Cell Urine Auto >30 /lpf (0-5); Glucose Urine UA Negative (Negative); Ketones Urine 3+ (Negative); Leukocyte Esterase Urine Negative (Negative); Nitrite Urine Negative (Negative); Protein Urine 1+ (Negative); Specific Gravity Urine 1.023 (1.000-1.030); Urobilinogen Urine Negative (Negative); pH Urine 5.5 (4.5-7.5)
[2023-04-29 20:29] LABS: Basophils # (auto) 0.07 K/uL (0.00-0.20); Basophils % (auto) 0.8 %; Eosinophils # (auto) 0.01 K/uL (0.00-0.50); Eosinophils % (auto) 0.1 %; Hematocrit (blood only) 40.7 % (37.0-47.0); Hemoglobin 14.4 g/dl (12.0-16.0); Immature Granulocytes # (auto) 0.04 K/uL (0.01-0.20); Immature Granulocytes % (auto) 0.5 %; Lymphocytes # (auto) 1.46 K/uL (1.20-3.40); Lymphocytes % (auto) 16.6 %; Mean Corpuscular Hemoglobin 32.4 pg (25.0-34.0); Mean Corpuscular Hgb Conc 35.4 g/dL (32.0-36.0); Mean Corpuscular Volume 91.7 fL (80.0-100.0); Mean Platelet Volume 9.8 fL (9.4-12.4); Monocytes # (auto) 0.53 K/uL (0.11-0.59); Platelet Count 230 K/uL (130-400); RDW Coefficient of Variation 13.2 % (11.5-14.5); RDW Standard Deviation 44.3 fL (36.4-46.3); Red Blood Count 4.44 M/uL (4.20-5.40); White Blood Count 8.81 K/ul (4.8-10.8)
[2023-04-29 20:41] LABS: Albumin Globulin Ratio 1.5 (0.9-2); Albumin Level 4.7 gm/dl (3.4-5.0); BUN Creatinine Ratio 14.5 (10-20); Bilirubin,Total 0.8 mg/dl (0.2-1.0); Calcium 8.8 mg/dl (8.6-10.3); Creatinine Clr Calc Pharmacy 123.6 ml/min; Est GFR (Non-African American) 110.4 ml/min; Globulin 3.1 gm/dl (2.5-4.0); Magnesium 1.7 mg/dl (1.7-2.4); Potassium 4.5 mmol/L (3.5-5.1); Total Protein 7.8 gm/dl (6.0-8.3)
[2023-04-29 20:50] LABS: INR 0.9 (0.9-1.1); Prothrombin Time 9.9 Seconds (9.0-12.0)
--- NOTE | 2023-04-29 21:06 | CT Scan Report ---
Exam(s): CT HEAD Without Contrast EXAM: CT Head Without Intravenous Contrast CLINICAL HISTORY: Reason for exam: seizure, headache, alcohol wdr. TECHNIQUE: Axial computed tomography images of the head/brain without intravenous contrast. CTDI is 38.97 mGy and DLP is 625.8 mGy-cm. Automated exposure control was utilized for the study. A dose lowering technique was utilized adhering to the principles of ALARA. COMPARISON: CT head 11/24/2022. FINDINGS: Brain: Unremarkable. No hemorrhage. No significant white matter disease. No edema. Ventricles: Unremarkable. No ventriculomegaly. Bones/joints: Unremarkable. No acute fracture. Soft tissues: Unremarkable. Sinuses: Unremarkable as visualized. Mastoid air cells: Unremarkable as visualized. No mastoid effusion. IMPRESSION: No intracranial hemorrhage or other acute intracranial abnormality identified. Electronically signed by: Jaquan Davis MD 04/29/23 21:05 PM
[2023-04-29 21:10] LABS: Amphetamines+Metham, Urine Neg (Neg); Barbiturates, Urine Pos (Neg); Benzodiazepine, Urine Neg (Neg); Cocaine, Urine Neg (Neg); MDMA (Ecstacy), Urine Neg (Neg); Marijuana, Urine Neg (Neg); Methadone, Urine Neg (Neg); Opiate, Urine Neg (Neg); Phencyclidine, Urine Neg (Neg)
--- NOTE | 2023-04-29 21:40 | History & Physical Report ---
Date of Service April 29, 2023 Assessment & Plan (1) Vomiting: Plan: -Manifestation of withdrawal symptoms/alcoholic gastritis -Zofran PRN nausea -Fluid repletion ongoing -Famotidine 20 mg IV BID (2) Abdominal pain: Plan: -While this may represent a degree of pancreatitis given pt's risk factors and previous history of such, only minimal tenderness on exam (none in epigastrium, no radiation to back) -Lipase added to AM labs -May be largely driven by alcoholic gastritis + constipation (last BM 4 days prior) -Bowel regimen initiated -Aggressive fluid repletion as above (3) Hyponatremia: Plan: -Na 129 on admission -Very likely beer potomania with contribution from reduced solute intake over past few days -Continue fluid repletion as above -Monitor CMP (4) Transaminitis: Plan: -Mild transaminitis on admission with AST 186, ALT 67 -Noted history of elevated liver enzymes in past -May also have chronic elevation from hepatic steatosis -Monitor CMP (5) Alcoholism: Plan: -Severe alcohol use disorder for which pt has had multiple hospitalizations and rehab stays -Per chart review, she had been on monthly naltrexone therapy as of recent past but this is not in her medication list on admission (6) Anxiety: Plan: -Continue buspirone, duloxetine, gabapentin 300 mg TID, Remeron, propranolol (7) Irritable bowel syndrome: Plan: -Continue Linzess Plan FENGI: Clear liquids Code status: Full DVT prophylaxis: SCDs Isolation: None Unit: PCU Disposition planning: Anticipate home once stable History of Present Illness Chief Complaint: Seizure Primary Care Provider: MARQUITA PCP 37 yo F with PMH severe alcohol use disorder, multiple hospitalizations for alcohol intoxication and withdrawal (most recent at [facility] from 03/14-03/15), previous DT seizures, previous pancreatitis episodes, PTSD, depression anxiety, sciatica, IBS presenting with seizure. Pt reports binge-drinking episode over past three days including beer and hard liquor (normally drinks a fifth of vodka daily), cannot recall how much she drank but states she was drinking most of the day and only stopped to sleep. She ate little to no food during these three days. Today she awoke and had a beer in the late morning but began to experience NBNB emesis x11 episodes shortly thereafter. She apparently had a seizure around 3 PM and recalls feeling the impending sensation of seizure but does not remember the event itself. She was found later by her mother and had urinary incontinence during this loss of consciousness. Pt was groggy afterward and had another episode of NBNB emesis on her way to ER. Her other symptoms include generalized tremors and diffuse abdominal pain greatest in RUQ/RLQ. Pt arrived to ER with HR 90s, BP 150/112 at highest. Initial evaluation significant for Na 129, CO2 19, AG 22, AST 186, ALT 67, urinalysis with ketones, alcohol level 340. EKG NSR. Head CT, CXR negative. ER interventions include MVI, Valium 5 mg IV, Zofran 4 mg IV. At present, pt reports some continued mild tremor of her hands but feels much improved after receiving Valium. Allergies Allergy/AdvReac Type Severity Reaction Status Date / Time lactose AdvReac Intermediate GI DISTRESS Verified 04/29/23 20:28 Home Medications Medication Instructions Recorded Confirmed Type mirtazapine 15 mg tablet 15 mg PO HS 01/15/22 04/29/23 History linaclotide 145 mcg capsule 145 mcg PO DAILY 04/21/22 04/29/23 History (Linzess) duloxetine 60 mg capsule,delayed 60 mg PO QAM 04/29/22 04/29/23 History release gabapentin 300 mg capsule 300 mg PO TID 05/23/22 04/29/23 History hydroxyzine pamoate 50 mg capsule 50 mg PO Q6 PRN Anxiety 09/08/22 04/29/23 History folic acid 1 mg tablet 1 mg PO DAILY 10/16/22 04/29/23 History propranolol 10 mg tablet 10 mg PO BID #30 tabs 11/11/22 04/29/23 Rx prazosin 1 mg capsule 4 mg PO HS 03/14/23 04/29/23 History buspirone 10 mg tablet 10 mg PO TID 04/29/23 04/29/23 History duloxetine 30 mg capsule,delayed 30 mg PO DAILY 04/29/23 04/29/23 History release sprinkle potassium chloride 40 mEq/15 mL 40 meq PO DAILY 04/29/23 04/29/23 History oral liquid vit no.95-ferrous 1 tab PO DAILY 04/29/23 04/29/23 History fumarate 28 mg-folic acid 800 mcg tablet () Past Med/Surg History Medical History (Updated 04/29/23 @ 22:02 by Wilbur Patton M.D.) Hypophosphatemia Irritable bowel syndrome Hyponatremia Leukocytosis Elevated lactic acid level Alcoholic gastritis High anion gap metabolic acidosis Alcoholic ketoacidosis Alcohol withdrawal Alcoholic intoxication Sciatica Transaminitis Hypokalemia Alcoholism Chest pain at rest History of intussusception Thrombocytopenia Tension headache Breast lump on left side at 11 o'clock position Hypomagnesemia Reflux gastritis Miscarriage Anxiety with depression PTSD (post-traumatic stress disorder) Hepatic steatosis Pancreatitis Surgical History S/P dilation and curettage H/O foot surgery Previous section Family History Mother Depression Anxiety Brother Depression Anxiety Denies family history of Ovarian cancer Prostate cancer Diabetes Myocardial infarction Breast cancer Colorectal cancer Hypertension Social History Smoking Status: Never smoker Second Hand Exposure: No; Do You Dip or Chew Tobacco: No; Hx Alcohol Use: Yes Alcohol type: hard liquor Hx Substance Use: No Preferred Language: Maori Communication Ability: Effective Visual Impairment: No Limitations Hearing Ability: Normal Pharmacy Stock Clerk Required: No Beliefs That Will Affect Care: None marital status: Current Living Situation: Family Current Living Situation Comment: recently discharged from rehab 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[id number] How many Children do You have: 1 Other Information That Helps Us Care for You: No Feels Safe at Home: Yes Safety Concerns: Feels Safe At This Time Childhood Exposure to Second-Hand Smoke: No Diet: regular Dental Care, Regularly: Yes Physical Activity Frequency: 5-6 Times per Week Seatbelt Use: always Sunscreen Use: Yes Assistive Devices: Contacts and Glasses Review of Systems Review of Systems: Per HPI/Subjective Physical Exam Physical Exam: General: tired-appearing, mildly tremulous HEENT: PERRL, EOMI, conjunctivae clear without injection, anicteric sclerae, dry mucous membranes, clear oropharynx without exudate or erythema Neck: supple, trachea midline, no thyromegaly, no JVD, no cervical lymphadenopathy CV: Tachycardic, regular rhythm, normal S1 and S2, no murmurs Resp: CTAB, no increased work of breathing, no crackles or wheezes Abd: Soft, mild diffuse tenderness greatest in RLQ, nondistended, no guarding or rebound, no hepatosplenomegaly MSK: Normal bulk of all four extremities Neuro: AOx3, no focal motor or sensory deficits. Generalized tremor as above. No dystonia. Skin: no rashes or lesions, warm and dry Ext: no LE peripheral edema or erythema, capillary refill <2s in all four extremities, 2+ LE peripheral pulses b/l Results & Data Results & Data Vital Signs (Past 12 Hours) Vital Signs Temp Pulse Pulse Resp BP BP Pulse Ox 04/29/23 20:43 94 H 22 98 04/29/23 20:43 95 H 22 125/91 97 04/29/23 19:11 36.6 C 95 H 18 150/112 H 99 O2 Del Method 04/29/23 20:43 Room Air 04/29/23 20:43 Room Air 04/29/23 19:11 Room Air Code Status & VTE Plan VTE Prophylaxis Plan VTE Prophylaxis will be ordered: Yes Supervising Physician Co-Signing Physician Notes Patient seen and examined, chart reviewed, case discussed with Dr. Alexandra kothari I agree with the assessment and plan as above. In brief, patient is a 37yo female known to the service from multiple hospitalizations for EtOH withdrawal. She does have history of complicated withdrawal including DTs and early withdrawal seizure. Patient with recent EtOH binge triggered by a breakup. She had a seizure-like episode prior to arrival. Last drink 04/29/23 AM On exam she is afebrile, HD stable. Anxious and mildly tremulous Skin - no rash HEENT - MMM, Neck supple Heart - +S1/S2, regular, no m/r/g Lungs - CTA, no rales/rhonchi/wheezes Abd - +BS, soft NT/ND Ext - warm, well perfused Labs and images reviewed Assessment/Plan Likely EtOH induced seizure rather than withdrawal - patient's last drink was AM. EtOH level is 430. She responded well to IV Valium given in the ER -Admit to PCU -Continue IV Ativan by AWSS protocol -MVI/Thiamine/Folate -Continue home Gabapentin -Continue IVF -Remainder as above Resident Activity Tracking Resident Involvement: Resident Care Provided Care Provided: Adult [facility] Medicine
[2023-04-29] MEDS ORDERED: LORazepam 1 MG in SYRINGE 0.5 ML IV PRN (23:58)
[2023-04-29] MEDS ORDERED: ONDANSETRON INJ 2 MG/ML 2 ML VIAL IV PRN (23:58)
[2023-04-30] MEDS: LACTATED RINGER'S 1,000 ML IV SCH ×2 (00:28→13:59)
[2023-04-30 07:02] LABS: Hematocrit (blood only) 34.1 % (37.0-47.0); Hemoglobin 12.3 g/dl (12.0-16.0); Mean Corpuscular Hemoglobin 32.8 pg (25.0-34.0); Mean Corpuscular Hgb Conc 36.1 g/dL (32.0-36.0); Mean Corpuscular Volume 90.9 fL (80.0-100.0); Mean Platelet Volume 10.2 fL (9.4-12.4); Platelet Count 151 K/uL (130-400); RDW Standard Deviation 43.4 fL (36.4-46.3); Red Blood Count 3.75 M/uL (4.20-5.40); White Blood Count 6.13 K/ul (4.8-10.8)
[2023-04-30 07:15] LABS: Albumin Globulin Ratio 1.9 (0.9-2); Albumin Level 3.9 gm/dl (3.4-5.0); BUN Creatinine Ratio 13.8 (10-20); Bilirubin,Total 1.2 mg/dl (0.2-1.0); Calcium 8.6 mg/dl (8.6-10.3); Est GFR (African American) 135.5 ml/min; Est GFR (Non-African American) 116.9 ml/min; Globulin 2.1 gm/dl (2.5-4.0); Magnesium 1.6 mg/dl (1.7-2.4); Phosphorus 1.7 mg/dl (2.5-4.9)
--- NOTE | 2023-04-30 07:21 | XRay Report ---
SINGLE VIEW CHEST CLINICAL HISTORY: Seizure. FINDINGS: An AP, portable, upright chest radiograph is compared to chest x-ray and chest CT dated . The cardiomediastinal silhouette is unremarkable. The lungs and pleural spaces are clear. No pneumothorax is seen. The bony thorax is grossly intact. IMPRESSION: No active disease in the chest. ACT 112: Negative or not required by law. Electronically signed by: Todd Espinosa M.D. 04/30/2023 7:20 AM
[2023-04-30] MEDS ORDERED: POTASSIUM PHOS 3 MMOL/1 ML INFUSION IV STA (07:34)
[2023-04-30] MEDS ORDERED: POTASSIUM PHOSPHATE 21 MMOL in SODIUM CHLORIDE 0.9% 500 ML IV ONE (07:45)
[2023-04-30] MEDS: FAMOTIDINE 20 MG in SYRINGE 3 ML IV SCH ×2 (08:47→21:01)
[2023-04-30] MEDS: POTASSIUM CHLORIDE 20 MEQ/15 ML UDC PO SCH (08:53)
[2023-04-30] MEDS: busPIRone 5 MG TAB PO SCH ×3 (08:55→20:02)
[2023-04-30] MEDS: DULoxetine HCL 60 MG CAP PO SCH (08:56)
[2023-04-30] MEDS: DULoxetine HCL 30 MG CAP PO SCH (08:56)
[2023-04-30] MEDS: GABAPENTIN 300 MG CAP PO SCH ×3 (08:57→20:03)
[2023-04-30] MEDS: FOLIC ACID 1 MG TAB PO SCH (08:57)
[2023-04-30] MEDS: PROPRANOLOL HCL 10 MG TAB PO SCH ×2 (08:58→20:02)
[2023-04-30] MEDS ORDERED: LORazepam 1 MG in SYRINGE 0.5 ML IV STA (08:58)
[2023-04-30] MEDS: LINACLOTIDE 145 MCG CAPSULE PO SCH (08:58)
[2023-04-30] MEDS: THIAMINE HCL 100 MG TAB PO SCH ×2 (08:59→20:04)
[2023-04-30] MEDS: POLYETHYLENE (MIRALAX) 17 GM PACK PO SCH ×2 (09:05→20:03)
[2023-04-30] MEDS: MAGNESIUM SULFATE / D5W 1 GM/100 ML BAG IV SCH ×3 (09:18→13:56)
--- NOTE | 2023-04-30 12:21 | Billing Data ---
Date of Service April 29, 2023 Coding Level of Care Code 28609 INT INP/OBS CARE
--- NOTE | 2023-04-30 13:47 | Hospitalist Progress Note ---
Date of Service April 30, 2023 Assessment & Plan (1) Alcohol withdrawal: Plan: -AWSS protocol initiated -Continue PRN ativan per protocol, no taper indicated at this time -Gabapentin 300 mg TID for anxiety and sciatica -Continue MVI, thiamine, folate daily (2) Alcoholic ketoacidosis: Plan: -Lab abnormalities indicating alcoholic ketoacidosis secondary to dehydration from multiple bouts of emesis/GI losses -Continue aggressive fluid repletion -Monitor CMP for gap closure (3) Vomiting: Plan: -Manifestation of withdrawal symptoms/alcoholic gastritis -Zofran PRN nausea -Fluid repletion ongoing -Famotidine 20 mg IV BID (4) Abdominal pain: Plan: -minimal tenderness on exam (none in epigastrium, no radiation to back) -bowel regimen -Aggressive fluid repletion as above (5) Hyponatremia: Plan: -Na 129-->134 -Continue fluid repletion as above -Monitor CMP (6) Transaminitis: Plan: -Mild transaminitis on admission with AST 186, ALT 67 -Noted history of elevated liver enzymes in past -Monitor CMP (7) Alcoholism: Plan: -Severe alcohol use disorder for which pt has had multiple hospitalizations and rehab stays -Per chart review, she had been on monthly naltrexone therapy as of recent past but this is not in her medication list on admission (8) MDD (major depressive disorder): Plan: -Continue duloxetine, Remeron (9) Anxiety: Plan: -Continue buspirone, duloxetine, gabapentin 300 mg TID, Remeron, propranolol (10) Sciatica: Plan: -Continue duloxetine, gabapentin 300 mg TID (11) PTSD (post-traumatic stress disorder): Plan: -Continue duloxetine, Remeron, prazosin (12) Irritable bowel syndrome: Plan: -Continue Linzess Plan FENGI: Clear liquids Code status: Full DVT prophylaxis: SCDs Isolation: None Unit: PCU Disposition planning: Anticipate home once stable Admission and Anticipated Discharge Date Admission Date: April 29, 2023 Supervising Physician Co-Signing Physician Notes I personally examined the patient and verified all méndez points of history and exam, discussed case, and agree with decision making with Dr Ace Feeling better than earlier. Notes that largely she drinks to self medicate for PTSD symptoms and panic attacks. She is aware of other coping skills but has never really been able to meaningfully apply them, and feels that she really struggles. She is very interested in getting more [facility], and definitely wants to follow-up with them in short order, and would be extremely interested in talking with a PTSD counselorshe notes the last time that she had any type of psychologist/counselor she thought she was going to be seeing somebody for dual diagnosis, but notes that it was really geared more towards alcohol abuse, and she felt she would likely benefit much more from PTSD related counseling. Vitals noted, in general she is awake and alert appears somewhat anxious and tremulous but fortunately no severe distress. HEENT normocephalic atraumatic mucous membranes moist. Breathing unlabored no accessory muscle use good effort. Skin shows no rashes no pallor or icterus. Neuro without focal deficits. Alcohol abuse/withdrawal and probable alcohol related seizurein the context of what appears to be uncontrolled PTSDcontinue to treat withdrawal with as needed benzodiazepines. Empathized with patient, noted that I think the main focus would largely be on the PTSD, and looking at the alcohol abuse as essentially a maladaptive coping strategy, putting it in its appropriate context. From a PTSD standpoint, we will ask that she follow-up with [facility] next week, and will ask our nurse navigator to try to help assist her in finding a counselor who works with PTSD/trauma. As it relates to alcohol abuse as a malad aptive coping strategy, we had a lengthy discussion about different coping strategies, including using active stress management/exercise as a coping strategy (she noted actually about a year ago whenever she was going to the gym regularly she was able to not drink for quite a while), as well as more quiet meditative stress management strategies, how to develop skills in both, and a little bit of when to apply each. She expressed appreciation for this conversation. Otherwise as above Subjective No acute events overnight. Patient seen and evaluated at bedside this morning. Here with alcohol withdrawl in the setting of severe PTSD. [facility]. Not currently attending therapy sessions. Feels her motivation to drink is primarily to help blunt nightmares that are a hallmark of her PTSD. This turns into binge drinking that carries into the day. This am remains nauseous, has headache, tremulousness, mild abdominal pain. No vomiting, seizure activity. Review of Systems Review of Systems: reviewed, per HPI Physical Exam Physical Exam: Constitutional: overall well appearing given withdrawal state, very anxious but cooperative and reasonable HEENT: NCAT, no conjunctival injection CV: regular rhythm, no murmur appreciated, extremities well-perfused, no LE edema Resp: CTABL, no wheezes/rales/rhonchi appreciated, no increased work of breathing GI: soft, nondistended, nontender, BS normoactive MSK: no gross deformities appreciated, tremulous upper extremties b/l Skin: warm, dry, no rash appreciated Neuro: alert, oriented, no focal neurologic deficit appreciated Results & Data Results & Data Vital Signs (Past 12 Hours) Vital Signs Temp Pulse Pulse Resp BP BP Pulse Ox 04/30/23 12:34 37.0 C 83 20 138/91 97 04/30/23 09:17 81 16 130/82 96 04/30/23 08:38 81 04/30/23 04:00 37.3 C 82 18 125/78 99 04/30/23 01:51 37.3 C 79 18 117/80 98 O2 Del Method 04/30/23 12:34 Room Air 04/30/23 09:17 Room Air 04/30/23 08:38 04/30/23 04:00 Room Air 04/30/23 01:51 Room Air (1) Alcohol withdrawal Complication of substance-induced condition: with unspecified complication Qualified Code(s): F10.939 - Alcohol use, unspecified with withdrawal, unspecified (8) MDD (major depressive disorder) Active/Remission status: remission status unspecified Major depression recurrence: unspecified whether recurrent Qualified Code(s): F32.9 - Major depressive disorder, single episode, unspecified
--- NOTE | 2023-04-30 15:07 | Electrocardiogram Report ---
Test Reason : Blood Pressure : / mmHG Vent. Rate : 086 BPM Atrial Rate : 086 BPM P-R Int : 106 ms QRS Dur : 080 ms QT Int : 406 ms P-R-T Axes : 013 042 026 degrees QTc Int : 485 ms Sinus rhythm with short OR Abnormal ECG When compared with ECG of 13-MAR-2023 20:03, No significant change was found Confirmed by James Sheikh ([id number]) on 04/30/2023 3:06:49 PM Referred By: REFERRED SELF Confirmed By:James Sheikh
--- NOTE | 2023-04-30 19:42 | Billing Data ---
Date of Service April 30, 2023 Coding Level of Care Code 61165 SUB INP/OBS CARE
[2023-04-30] MEDS ORDERED: MIRTAZAPINE TAB 15 MG TAB PO SCH (21:00)
[2023-04-30] MEDS ORDERED: PRAZOSIN HCL 1 MG CAP PO SCH (21:00)
[2023-05-01] MEDS: LINACLOTIDE 145 MCG CAPSULE PO SCH (08:37)
[2023-05-01] MEDS: POTASSIUM CHLORIDE 20 MEQ/15 ML UDC PO SCH (08:37)
[2023-05-01] MEDS: POLYETHYLENE (MIRALAX) 17 GM PACK PO SCH (08:37)
[2023-05-01] MEDS: DULoxetine HCL 30 MG CAP PO SCH (08:38)
[2023-05-01] MEDS: FOLIC ACID 1 MG TAB PO SCH (08:38)
[2023-05-01] MEDS: DULoxetine HCL 60 MG CAP PO SCH (08:38)
[2023-05-01] MEDS: GABAPENTIN 300 MG CAP PO SCH ×2 (08:38→13:33)
[2023-05-01] MEDS: THIAMINE HCL 100 MG TAB PO SCH (08:38)
[2023-05-01] MEDS: PROPRANOLOL HCL 10 MG TAB PO SCH (08:38)
[2023-05-01] MEDS: busPIRone 5 MG TAB PO SCH ×2 (08:38→13:32)
[2023-05-01] MEDS: FAMOTIDINE 20 MG in SYRINGE 3 ML IV SCH (08:40)
--- NOTE | 2023-05-01 15:44 | Discharge Summary ---
Date of Service May 01, 2023 Admission HPI Per Admitting Provider 37 yo F with PMH severe alcohol use disorder, multiple hospitalizations for alcohol intoxication and withdrawal (most recent at [facility] from 03/14-03/15), previous DT seizures, previous pancreatitis episodes, PTSD, depression anxiety, sciatica, IBS presenting with seizure. Pt reports binge-drinking episode over past three days including beer and hard liquor (normally drinks a fifth of vodka daily), cannot recall how much she drank but states she was drinking most of the day and only stopped to sleep. She ate little to no food during these three days. Today she awoke and had a beer in the late morning but began to experience NBNB emesis x11 episodes shortly thereafter. She apparently had a seizure around 3 PM and recalls feeling the impending sensation of seizure but does not remember the event itself. She was found later by her mother and had urinary incontinence during this loss of consciousness. Pt was groggy afterward and had another episode of NBNB emesis on her way to ER. Her other symptoms include generalized tremors and diffuse abdominal pain greatest in RUQ/RLQ. Pt arrived to ER with HR 90s, BP 150/112 at highest. Initial evaluation significant for Na 129, CO2 19, AG 22, AST 186, ALT 67, urinalysis with ketones, alcohol level 340. EKG NSR. Head CT, CXR negative. ER interventions include MVI, Valium 5 mg IV, Zofran 4 mg IV. At present, pt reports some continued mild tremor of her hands but feels much improved after receiving Valium. Admission Exam Per Admitting Provider General: tired-appearing, mildly tremulous HEENT: PERRL, EOMI, conjunctivae clear without injection, anicteric sclerae, dry mucous membranes, clear oropharynx without exudate or erythema Neck: supple, trachea midline, no thyromegaly, no JVD, no cervical lymphadenopathy CV: Tachycardic, regular rhythm, normal S1 and S2, no murmurs Resp: CTAB, no increased work of breathing, no crackles or wheezes Abd: Soft, mild diffuse tenderness greatest in RLQ, nondistended, no guarding or rebound, no hepatosplenomegaly MSK: Normal bulk of all four extremities Neuro: AOx3, no focal motor or sensory deficits. Generalized tremor as above. No dystonia. Skin: no rashes or lesions, warm and dry Ext: no LE peripheral edema or erythema, capillary refill <2s in all four extremities, 2+ LE peripheral pulses b/l Principal Diagnosis EtOH withdrawal Discharge Exam Constitutional: overall well appearing given withdrawal state, very anxious but cooperative and reasonable HEENT: NCAT, no conjunctival injection CV: regular rhythm, no murmur appreciated, extremities well-perfused, no LE edema Resp: CTABL, no wheezes/rales/rhonchi appreciated, no increased work of breathing GI: soft, nondistended, nontender, BS normoactive MSK: no gross deformities appreciated, tremulous upper extremties b/l Skin: warm, dry, no rash appreciated Neuro: alert, oriented, no focal neurologic deficit appreciated Discharge Data Allergies Allergy/AdvReac Type Severity Reaction Status Date / Time lactose AdvReac Intermediate GI DISTRESS Verified 04/29/23 20:28 Consultations 04/29/23 21:18 ED Decision to Admit Stat Ordered Studies 04/29/23 19:14 CT head/brain wo con Stat Hospital Course (1) Vomiting: -Manifestation of withdrawal symptoms/alcoholic gastritis -Zofran PRN nausea -Fluid repletion ongoing -Famotidine 20 mg IV BID (2) Abdominal pain: -minimal tenderness on exam (none in epigastrium, no radiation to back) -bowel regimen -Aggressive fluid repletion as above (3) Hyponatremia: -Na 129-->134 -Continue fluid repletion as above -Monitor CMP (4) Transaminitis: -Mild transaminitis on admission with AST 186, ALT 67 -Noted history of elevated liver enzymes in past -Monitor CMP (5) Alcoholism: -Severe alcohol use disorder for which pt has had multiple hospitalizations and rehab stays -Per chart review, she had been on monthly naltrexone therapy as of recent past but this is not in her medication list on admission (6) Anxiety: -Continue buspirone, duloxetine, gabapentin 300 mg TID, Remeron, propranolol (7) Irritable bowel syndrome: -Continue Linzess Plan FENGI: Clear liquids Code status: Full DVT prophylaxis: SCDs Isolation: None Unit: PCU Disposition planning: Anticipate home once stable Total Time Total Time Spent Total Time Spent (In Minutes): <30 Discharge Plan Discharge Items Patient Disposition: Home - Self-Care Reason For Visit: Alcohol Withdrawal Discharge Diagnosis: alcohol withdraw Activity: Resume your previous activity Non-emergency contact: Primary Care Provider Call non-emergency contact if: you have any medication questions and your symptoms worsen Follow-up/Referrals: Vinay Ace DO [Resident] - PCP,NO [Primary Care Provider] - Diet: Regular Addtl Attending Provider Instructions: You were admitted to the hospital for alcohol withdrawal. You were treated with medication to help with the symptoms of withdrawal. While you were here we discussed positive coping strategies. You were determined to be stable for discharge. A discharge summary will be sent to your primary care physician to ensure continuity of care. Please bring this discharge summary with you to your next office appointment so that your provider can review it at that time. Follow-up appointments: You have an appointment with Vinay Ace DO on 05/09/23 at 3:45 at the [facility] [address] [place] [address] in [place]. If you are unable to make this appointment, or have any other questions, their office can be reached at . Keep all your follow-up appointments as already scheduled. If you cannot make an appointment, notify your provider. Medications: Your medication list has been reviewed and reconciled upon discharge to ensure accuracy and continuity of care. An updated list of all your medications is included with your hospital discharge paperwork. Please review this list closely, and make note of any changes. If you have any issues filling these prescriptions, please call [phone] and ask to leave a message for Dr. Vinay Aec. Take your medications as instructed; do not skip a dose of your medicines. Make sure all of your doctors know every medicine you are taking (including [id number] medicines, vitamins, and supplements). Call your primary care provider before taking any new medicines (including [id number] medicines, vitamins, and supplements), because some of these may interact with your current medications, or may make your symptoms worse. Tell your primary care provider if you cannot afford your medications. CONTACT YOUR PRIMARY CARE PROVIDER if you experience any of the following: Difficulty following your treatment plan, or difficulty taking medications CALL 911 OR GO TO THE EMERGENCY DEPARTMENT if you experience any of the following: Sudden, severe abdominal pain or nausea/vomiting Severe chest pain, or chest pain that radiates (moves) to your jaw or arm Sudden, severe shortness of breath or difficulty breathing Thank you for allowing us to participate in your care. Pending Studies at Discharge: No Stand-Alone Forms: [facility] Medications and DC Order Prescriptions: Continued duloxetine 60 mg capsule,delayed release(DR/EC) 60 mg PO QAM Rx Instructions: TOTAL DOSE 90 MG--TAKES WITH 30 MG CAP. propranolol 10 mg tablet 10 mg PO BID Qty: 30 6RF mirtazapine 15 mg tablet 15 mg PO HS Linzess 145 mcg capsule 145 mcg PO DAILY gabapentin 300 mg capsule 300 mg PO TID hydroxyzine pamoate 50 mg capsule 50 mg PO Q6 PRN (Reason: Anxiety) potassium chloride 40 mEq/15 mL liquid 40 meq PO DAILY buspirone 10 mg Tablet 10 mg PO TID PNV cmb#[id number]-ferrous fumarate-FA [] 28 mg iron- 800 mcg Tablet 1 tab PO DAILY duloxetine 30 mg Capsule, Delayed Rel Sprinkle 30 mg PO DAILY Rx Instructions: TOTAL DOSE 90 MG--TAKES WITH 60 MG CAP. folic acid 1 mg tablet 1 mg PO DAILY prazosin 1 mg capsule 4 mg PO HS Discharge Orders: Discharge Order (Routine); Ordered 05/01/23 Ordered By: Vinay Ace Admission Data Admit Date/Time: 04/29/23 21:39 Attending Provider: Issa Ma Admit Provider: Thalia Morris Primary Care Provider: PCP,NO Other Providers: Malou Bojorquez Other Interventions: Discharge Summary Assessment (RN) Last Done: 05/01/23 13:14 Supervising Physician Co-Signing Physician Notes I personally examined the patient and verified all méndez points of history and exam, discussed case, and agree with decision making with Dr Ace Feels pretty good overall. Feels up to going home. Far less shaky today and not really shaky at all. Is optimistic about her future. Notes that she is definitely going to get back to exercising, and will get a punching bag for her garage. Vitals noted, in general she is awake and alert appears calm, composed, not at all tremulous, no distress.. HEENT normocephalic atraumatic mucous membranes moist. Breathing unlabored no accessory muscle use good effort. Skin shows no rashes no pallor or icterus. Neuro without focal deficits. Alcohol abuse/withdrawal and probable alcohol related seizurein the context of what appears to be uncontrolled PTSDdoing much better today, safe/stable for home. Empathized with patient, noted that I think the main focus would largely be on the PTSD, and looking at the alcohol abuse as essentially a maladaptive coping strategy, putting it in its appropriate context. From a PTSD standpoint, ongoing med management, and work on PTSD counseling. As it relates to alcohol abuse as a maladaptive coping strategy, we had a lengthy discussion about different coping strategies yesterday, and reiterated today, including using active stress management/exercise as a coping strategy (she noted actually about a year ago whenever she was going to the gym regularly she was able to not drink for quite a while), as well as more quiet meditative stress management strategies, how to develop skills in both, and a little bit of when to apply each. She expressed appreciation for this conversation. Otherwise as above
--- NOTE | 2023-05-01 15:47 | Billing Data ---
Date of Service May 01, 2023 Coding Level of Care Code 12588 IN/OBS DISCH 30 MIN/LESS
[2023-05-02 15:32] LABS: Amobarbital, Urine Conf NEGATIVE ng/mL (<100); Butalbital, Urine NEGATIVE ng/mL (<100); Pentobarbital, Urine Conf NEGATIVE ng/mL (<100); Phenobarbital, Urine 1510 ng/mL (<100); Secobarbital, Urine Conf NEGATIVE ng/mL (<100)
== END 2023-05-01 15:02 | disposition home or self-care (01) | DRG 897 ==
LOC: SUATTDRO → ED 19:06 → SUATTDRO 21:39 → EDINP 21:39 → 2E 04-30 18:18

== ENCOUNTER 2023-05-17 14:53 | Inpatient (IN) ==
--- NOTE | 2023-05-17 15:26 | Emergency Department Note ---
Impression & Plan Alcohol withdrawal, Hypomagnesemia, Alcohol abuse, Vomiting, Elevated liver enzymes, History of seizure due to alcohol withdrawal ED Provider Note NAME: PHILLIP AMARO AGE: 37 SEX: F : 1985 ARRIVES VIA: Walk-In INFORMANT: [Patient] ED PROVIDER(S): [Todd Moyer MD] CHIEF COMPLAINT: Alcohol withdrawal HISTORY OF PRESENT ILLNESS: The patient is a 37-year-old female presents to the ER with alcohol withdrawal. She last had alcohol earlier this morning. She typically drinks about a 5th of vodka daily. The patient has had nausea and vomiting. She has a history of alcohol withdrawal seizure and she was quite concerned that this could happen again. She presents for evaluation. There has been no cough or congestion or respiratory complaints. The patient believes that her posttraumatic stress disorder has caused her to drink. She is hoping to get through the alcohol withdrawal and then go to a psychiatric facility inpatient for help with her PTSD. She is not currently suicidal. PMHx/PSHx/Social Hx: See Below PHYSICAL EXAM: GENERAL: Patient is in no acute distress. HEENT: No acute trauma, normocephalic atraumatic, mucous membranes moist, no nasal congestion. NECK: No stridor, no adenopathy, no meningismus, trachea is midline. LUNGS: Clear to auscultation bilaterally, no wheeze, no rhonchi, breath sounds equal. HEART: Without murmurs gallops or rubs, regular rate and rhythm. ABDOMEN: Soft, nontender, no peritonitis. EXTREMITIES: No cyanosis, full range of motion of all the joints without pain or difficulty. NEUROLOGIC: Oriented x 3, no acute motor or sensory deficits, no focal weakness. SKIN: No jaundice, no diaphoresis. Psychiatric: Cooperative, voluntary, not suicidal. DIFFERENTIAL DIAGNOSIS: Alcohol withdrawal, psychosis, electrolyte imbalance, posttraumatic stress disorder, dehydration, among others. EMERGENCY DEPARTMENT PROCEDURES: MEDICAL DECISION MAKING: There is no leukocytosis or concerning anemia. There is a normal platelet count. Potassium slightly low at 3.3. Magnesium is low at 1.4. No renal failure. There were some liver enzyme elevations, likely from her alcohol abuse and vomiting. Patient appeared to be in a euthyroid state. testing returned negative. ECG showed a normal sinus rhythm, no obvious ischemia. Cardiac enzyme testing x 1 was not consistent with acute cardiac injury. Urinalysis did not show findings of infection. Aspirin and Tylenol levels were undetectable. Urine tox was negative. Alcohol level was high at 340. Chest x- ray did not show mediastinal widening, pneumonia or pneumothorax. On exam, the patient was not toxic or febrile. The patient received IV saline, 500 cc. She was given IV saline with multivitamins, thiamine and folate. She received IV Zofran, IV Toradol and IV Valium. She was ordered for IV magnesium and IV potassium. The patient presents with alcohol withdrawal. She has been vomiting. She has a history of alcohol withdrawal seizure. Given her electrolyte abnormalities, given her complaints and past history, I do think hospitalization is warranted. I spoke with case management, I spoke with the patient, the on-call hospitalist was consulted. The patient did ask that we consider transfer to an inpatient psychiatric center once she was medically stabilized and no longer suffering from withdrawal. She believes her posttraumatic stress disorder is causing her to drink too much alcohol. Prior/Outside records/notes reviewed: Discharge summary note from 05/01/2023 discussing her presentation for alcohol withdrawal. ECG per my interpretation: Indication was withdrawal. The ECG shows a normal sinus rhythm with a rate of 84. There was some diffuse nonspecific ST change. There was no ST elevation, no PVCs. There was some poor R wave progression. QTc was 496. Continuous Cardiac Monitoring per my interpretation: An order was placed for continuous cardiac monitoring. The monitor shows a rate of [] with []. Imaging/x-ray results per my interpretation: Chest x-ray does not show mediastinal widening, pneumonia or pneumothorax. Chronic Medical/Social conditions affecting care: Alcoholism. Posttraumatic stress disorder. Care/Management discussed with: Case management, the on-call hospitalist. Level of care consideration(s): After review of the information above and other included data: --I believe the patient requires escalation of care to admission Critical Care Note: I have personally spent 42 minutes of critical care time in the direct management of this patient. This includes bedside care, interpretation of diagnostic studies, and testing, discussion with consultants, patient, and family members, and other required patient management activities. This 42 minutes is in excess of all separately billable procedures. DISPOSITION: Admission Past Med/Surg History Medical History Hypokalemia Hypophosphatemia Irritable bowel syndrome Hyponatremia Leukocytosis Elevated lactic acid level Alcoholic gastritis High anion gap metabolic acidosis Alcoholic ketoacidosis Alcohol withdrawal Alcoholic intoxication Sciatica Transaminitis Alcoholism Chest pain at rest History of intussusception Thrombocytopenia Tension headache Breast lump on left side at 11 o'clock position Hypomagnesemia Reflux gastritis Miscarriage Anxiety with depression PTSD (post-traumatic stress disorder) Hepatic steatosis Pancreatitis Surgical History S/P dilation and curettage H/O foot surgery Previous section Family History Mother Depression Anxiety Brother Depression Anxiety Denies family history of Ovarian cancer Prostate cancer Diabetes Myocardial infarction Breast cancer Colorectal cancer Hypertension Social History Smoking Status: Never smoker Second Hand Exposure: No; Do You Dip or Chew Tobacco: No; Hx Alcohol Use: Yes Alcohol type: hard liquor Hx Substance Use: No Preferred Language: Chilean Communication Ability: Effective Visual Impairment: No Limitations Hearing Ability: Normal Paper Inspector Required: No Beliefs That Will Affect Care: None marital status: Current Living Situation: Family Current Living Situation Comment: recently discharged from rehab 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[employer] How many Children do You have: 1 Feels Safe at Home: Yes Childhood Exposure to Second-Hand Smoke: No Diet: regular Dental Care, Regularly: Yes Physical Activity Frequency: 5-6 Times per Week Seatbelt Use: always Sunscreen Use: Yes Assistive Devices: None Allergies Allergies Allergy/AdvReac Type Severity Reaction Status Date / Time lactose AdvReac Intermediate GI DISTRESS Verified 04/29/23 20:28 Home Meds Home Medications Medication Instructions Recorded Confirmed mirtazapine 15 mg tablet 15 mg PO HS 01/15/22 04/29/23 linaclotide 145 mcg capsule 145 mcg PO DAILY 04/21/22 04/29/23 (Linzess) duloxetine 60 mg capsule,delayed 60 mg PO QAM 04/29/22 04/29/23 release gabapentin 300 mg capsule 300 mg PO TID 05/23/22 04/29/23 hydroxyzine pamoate 50 mg capsule 50 mg PO Q6 PRN Anxiety 09/08/22 04/29/23 folic acid 1 mg tablet 1 mg PO DAILY 10/16/22 04/29/23 prazosin 1 mg capsule 4 mg PO HS 03/14/23 04/29/23 buspirone 10 mg tablet 10 mg PO TID 04/29/23 04/29/23 duloxetine 30 mg capsule,delayed 30 mg PO DAILY 04/29/23 04/29/23 release sprinkle potassium chloride 40 mEq/15 mL 40 meq PO DAILY 04/29/23 04/29/23 oral liquid vit no.95-ferrous 1 tab PO DAILY 04/29/23 04/29/23 fumarate 28 mg-folic acid 800 mcg tablet () Previous Rx's Medication Instructions Recorded propranolol 10 mg tablet 10 mg PO BID #30 tabs 11/11/22 Results & Data (ED) Vital Signs Vital Signs - 24 hr 05/17/23 14:55 05/17/23 15:40 05/17/23 15:40 Temperature 36.3 C L Temperature Source Temporal Artery Scan Pulse Rate 103 H Respiratory Rate 18 18 Blood Pressure 128/86 Blood Pressure [Right Arm] 119/88 Blood Pressure Mean 100 Blood Pressure Mean [Right Arm] 98 Pulse Oximetry 92 93 Oxygen Delivery Method Room Air Room Air Room Air Sepsis Recent Fever Within 48 Hours No Sepsis New/Unexplained Change in Mental Status N/A Sepsis Action Taken by Nursing No Action Required 05/17/23 16:13 Temperature Temperature Source Pulse Rate 83 Respiratory Rate Blood Pressure Blood Pressure [Right Arm] Blood Pressure Mean Blood Pressure Mean [Right Arm] Pulse Oximetry Oxygen Delivery Method Sepsis Recent Fever Within 48 Hours Sepsis New/Unexplained Change in Mental Status Sepsis Action Taken by [facility] Medications Current Medication List: was personally reviewed by me Laboratory Data Attestation: I reviewed the patient's lab results. 05/17/23 15:25 05/17/23 15:25 Lab Results 05/17/23 05/17/23 Range/Units 15:25 15:26 WBC 5.95 (4.8-10.8) K/ul RBC 3.71 L (4.20-5.40) M/uL Hgb 12.2 (12.0-16.0) g/dl Hct 33.9 L (37.0-47.0) % MCV 91.4 (80.0-100.0) fL MCH 32.9 (25.0-34.0) pg MCHC 36.0 (32.0-36.0) g/dL RDW Std Deviation 49.7 H (36.4-46.3) fL RDW Coeff of Dallin 14.9 H (11.5-14.5) % Plt Count 163 (130-400) K/uL MPV 10.7 (9.4-12.4) fL Immature Gran % (Auto) 0.5 % Neut % (Auto) 50.5 % Lymph % (Auto) 38.8 % [place] % (Auto) 7.9 % Eos % (Auto) 0.8 % Baso % (Auto) 1.5 % Neut # (Auto) 3.00 (1.40-6.50) K/uL Lymph # (Auto) 2.31 (1.20-3.40) K/uL [place] # (Auto) 0.47 (0.11-0.59) K/uL Eos # (Auto) 0.05 (0.00-0.50) K/uL Baso # (Auto) 0.09 (0.00-0.20) K/uL Immature Gran # (Auto) 0.03 (0.01-0.20) K/uL Sodium 139 (136-145) mmol/L Potassium 3.3 L (3.5-5.1) mmol/L Chloride 98 (98-107) mmol/L Carbon Dioxide 26 (21-32) mmol/L Anion Gap 15 H (3-11) BUN 11 (6-23) mg/dl Creatinine 0.66 (0.6-1.2) mg/dl Est Cr Clr Drug Dosing 144.8 ml/min Est GFR ( Amer) 129.9 ml/min Est GFR (Non-Af Amer) 112.1 ml/min BUN/Creatinine Ratio 16.7 (10-20) Glucose 95 (70-99(Fasting)) mg/dl Calcium 8.8 (8.6-10.3) mg/dl Magnesium 1.4 L (1.7-2.4) mg/dl Total Bilirubin 0.6 (0.2-1.0) mg/dl AST 297 H (13-39) U/L ALT 156 H (7-52) U/L Alkaline Phosphatase 125 H (34-104) U/L Troponin I High Sens 2.5 (0-14) pg/ml Total Protein 7.0 (6.0-8.3) gm/dl Albumin 4.2 (3.4-5.0) gm/dl Globulin 2.8 (2.5-4.0) gm/dl Albumin/Globulin Ratio 1.5 (0.9-2) TSH 1.213 (0.300-4.500) uIu/ml HCG, Qual Negative (Negative) Urine Color Yellow Urine Appearance Clear (Clear) Urine pH 6.5 (4.5-7.5) Ur Specific Flowe[place] 1.009 (1.000-1.030) Urine Protein Negative (Negative) Urine Glucose (UA) Negative (Negative) Urine Ketones Negative (Negative) Urine Blood 1+ H (Negative) Urine Nitrite Negative (Negative) Urine Bilirubin Negative (Negative) Urine Urobilinogen Negative (Negative) Ur Leukocyte Esterase Negative (Negative) Urine WBC (Auto) 1-5 (0-5) /hpf Urine RBC (Auto) 0-4 (0-4) /hpf U Hyaline Cast (Auto) 0 (0-5) /lpf U Epithel Cells (Auto) >30 H (0-5) /lpf Urine Bacteria (Auto) 1+ H (Negative) Salicylates < 3.0 L (3.0-30) mg/dl Urine Opiates Screen Neg (Neg) Ur Methadone, Qual Neg (Neg) Acetaminophen < 3 L (10-30) ug/ml Urine Barbiturates Neg (Neg) Ur Phencyclidine (PCP) Neg (Neg) U Amphetamin/Meth Scrn Neg (Neg) MDMA (Ecstasy) Screen Neg (Neg) U Benzodiazepines Scrn Neg (Neg) Ur Cocaine Metabolite Neg (Neg) U Marijuana (THC) Screen Neg (Neg) Ethyl Alcohol mg/dL 341.9 H (<10.0) mg/dl Administered Medications Multivitamins 10 ml/ Thiamine HCl 100 mg/ Folic Acid 1 mg/Sodium Chloride 1,011.2 mls @ 500 mls/hr IV .Q2H2M ONE Stop: 05/17/23 17:07 Last Admin: 05/17/23 15:37 Dose: 500 mls/hr Documented By: BMK Magnesium Sulfate/Dextrose (Magnesium Sulfate / D5w) 1 gm in 100 mls @ 100 mls/hr IV Q1H JOSE F Stop: 05/17/23 18:14 Last Admin: 05/17/23 16:22 Dose: 100 mls/hr Documented By: NELLY Potassium Chloride (K Ottoniel / Wtr) 10 meq in 100 mls @ 100 mls/hr IV ONE ONE Stop: 05/17/23 17:14 Last Admin: 05/17/23 16:22 Dose: 100 mls/hr Documented By: NELLY Discontinued Medications Diazepam (Diazepam 5 Mg/Ml 10ml Vial) 5 mg IV NOW STA Stop: 05/17/23 15:07 Last Admin: 05/17/23 15:35 Dose: 5 mg Documented By: NELLY Sodium Chloride (Nss) 500 mls @ 999 mls/hr IV .Q31M JOSE F Stop: 05/17/23 15:45 Last Admin: 05/17/23 15:34 Dose: 999 mls/hr Documented By: NELLY Ketorolac Tromethamine (Ketorolac Tromethamine 15 Mg/Ml Vial) 10 mg IV NOW ONE Stop: 05/17/23 15:54 Last Admin: 05/17/23 16:21 Dose: 10 mg Documented By: NELLY Ondansetron HCl (Ondansetron Inj 2 Mg/Ml 2 Ml Vial) 4 mg IV NOW STA Stop: 05/17/23 15:07 Last Admin: 05/17/23 15:34 Dose: 4 mg Documented By: NELLY Imaging Data Radiologist's Impression: Chest X-Ray 05/17/23 15:06 XR chest 1V portable HISTORY: 37 years-old Female weakness acute weakness COMPARISON: 04/29/2023 TECHNIQUE: AP view the chest FINDINGS: Mid thoracic dextroscoliosis. Cardiomediastinal and hilar silhouettes are within normal limits. No pneumothorax, pleural effusion or airspace consolidation. IMPRESSION: No acute process. ACT 112: Negative or not required by law. The above report was generated using voice recognition software. It may contain grammatical, syntax or spelling errors. Electronically signed by: [place] Fernando M.D. 05/17/2023 3:44 PM Discharge Plan Visit Data Chief Complaint: Alcohol Withdrawal Stated Complaint: ALCOHOL WITHDRAWAL, MENTAL HEALTH EVALUATION ED Provider: Todd Moyer Discharge Problem: Alcohol withdrawal, Hypomagnesemia, Alcohol abuse, Vomiting, Elevated liver enzymes, History of seizure due to alcohol withdrawal Patient Disposition: Admitted As Inpatient Condition: Fair Forms Stand Alone Forms: My [facility], Suicide Prevention Resources Prescriptions Prescriptions: No Action duloxetine 60 mg capsule,delayed release(DR/EC) 60 mg PO QAM Rx Instructions: TOTAL DOSE 90 MG--TAKES WITH 30 MG CAP. propranolol 10 mg tablet 10 mg PO BID Qty: 30 6RF mirtazapine 15 mg tablet 15 mg PO HS Linzess 145 mcg capsule 145 mcg PO DAILY gabapentin 300 mg capsule 300 mg PO TID hydroxyzine pamoate 50 mg capsule 50 mg PO Q6 PRN (Reason: Anxiety) potassium chloride 40 mEq/15 mL liquid 40 meq PO DAILY buspirone 10 mg Tablet 10 mg PO TID PNV cmb#[id number]-ferrous fumarate-FA [] 28 mg iron- 800 mcg Tablet 1 tab PO DAILY duloxetine 30 mg Capsule, Delayed Rel Sprinkle 30 mg PO DAILY Rx Instructions: TOTAL DOSE 90 MG--TAKES WITH 60 MG CAP. folic acid 1 mg tablet 1 mg PO DAILY prazosin 1 mg capsule 4 mg PO HS Referrals Referrals: PCP,NO [Primary Care Provider] - Discharge Problem: Alcohol withdrawal Qualifiers: Complication of substance-induced condition: uncomplicated Qualified Code(s): F 10.930 - Alcohol use, unspecified with withdrawal, uncomplicated Vomiting Qualifiers: Vomiting type: unspecified Nausea presence: with nausea Qualified Code(s): R 11.2 - Nausea with vomiting, unspecified
[2023-05-17] MEDS: ONDANSETRON INJ 2 MG/ML 2 ML VIAL IV STA (15:34)
[2023-05-17] MEDS: SODIUM CHLORIDE 0.9% 500 ML IV SCH (15:34)
[2023-05-17] MEDS: diazePAM 5 MG/ML 10ML VIAL IV STA (15:35)
[2023-05-17] MEDS: MULTI-VITAMIN INFUSION 10 ML, THIAMINE HCL 100 MG, FOLIC ACID 1 MG in SODIUM CHLORIDE 0... IV ONE (15:37)
[2023-05-17 15:43] LABS: Basophils # (auto) 0.09 K/uL (0.00-0.20); Basophils % (auto) 1.5 %; Eosinophils # (auto) 0.05 K/uL (0.00-0.50); Eosinophils % (auto) 0.8 %; Hematocrit (blood only) 33.9 % (37.0-47.0); Hemoglobin 12.2 g/dl (12.0-16.0); Immature Granulocytes # (auto) 0.03 K/uL (0.01-0.20); Immature Granulocytes % (auto) 0.5 %; Lymphocytes # (auto) 2.31 K/uL (1.20-3.40); Lymphocytes % (auto) 38.8 %; Mean Corpuscular Hemoglobin 32.9 pg (25.0-34.0); Mean Corpuscular Volume 91.4 fL (80.0-100.0); Mean Platelet Volume 10.7 fL (9.4-12.4); Monocytes # (auto) 0.47 K/uL (0.11-0.59); Monocytes % (auto) 7.9 %; Neutrophils % (auto) 50.5 %; Platelet Count 163 K/uL (130-400); RDW Coefficient of Variation 14.9 % (11.5-14.5); RDW Standard Deviation 49.7 fL (36.4-46.3); Red Blood Count 3.71 M/uL (4.20-5.40); White Blood Count 5.95 K/ul (4.8-10.8)
[2023-05-17 15:45] LABS: Appearance Urine Clear (Clear); Bacteria Urine Automated 1+ (Negative); Bilirubin Urine Negative (Negative); Blood Urine 1+ (Negative); Cast Urine Automated 0 /lpf (0-5); Color Urine Yellow; Epithelial Cell Urine Auto >30 /lpf (0-5); Glucose Urine UA Negative (Negative); Ketones Urine Negative (Negative); Leukocyte Esterase Urine Negative (Negative); Nitrite Urine Negative (Negative); Protein Urine Negative (Negative); RBC Urine Automated 0-4 /hpf (0-4); Specific Gravity Urine 1.009 (1.000-1.030); Urobilinogen Urine Negative (Negative); pH Urine 6.5 (4.5-7.5)
--- NOTE | 2023-05-17 15:46 | XRay Report ---
XR chest 1V portable HISTORY: 37 years-old Female weakness acute weakness COMPARISON: 04/29/2023 TECHNIQUE: AP view the chest FINDINGS: Mid thoracic dextroscoliosis. Cardiomediastinal and hilar silhouettes are within normal limits. No pn eumothorax, pleural effusion or airspace consolidation. IMPRESSION: No acute process. ACT 112: Negative or not required by law. The above report was generated using voice recognition software. It may contain grammatical, syntax o r spelling errors. Electronically signed by: [place] Fernando M.D. 05/17/2023 3:44 PM
[2023-05-17 15:57] LABS: Pregnancy Test, Serum Negative (Negative)
[2023-05-17 16:02] LABS: Albumin Globulin Ratio 1.5 (0.9-2); Albumin Level 4.2 gm/dl (3.4-5.0); BUN Creatinine Ratio 16.7 (10-20); Bilirubin,Total 0.6 mg/dl (0.2-1.0); Calcium 8.8 mg/dl (8.6-10.3); Creatinine Clr Calc Pharmacy 144.8 ml/min; Est GFR (African American) 129.9 ml/min; Est GFR (Non-African American) 112.1 ml/min; Globulin 2.8 gm/dl (2.5-4.0); Magnesium 1.4 mg/dl (1.7-2.4); Potassium 3.3 mmol/L (3.5-5.1)
[2023-05-17 16:05] LABS: Amphetamines+Metham, Urine Neg (Neg); Barbiturates, Urine Neg (Neg); Benzodiazepine, Urine Neg (Neg); Cocaine, Urine Neg (Neg); MDMA (Ecstacy), Urine Neg (Neg); Marijuana, Urine Neg (Neg); Methadone, Urine Neg (Neg); Opiate, Urine Neg (Neg); Phencyclidine, Urine Neg (Neg)
[2023-05-17 16:07] LABS: Acetaminophen < 3 ug/ml (10-30); Salicylate < 3.0 mg/dl (3.0-30)
[2023-05-17 16:08] LABS: Troponin I High Sensitivity 2.5 pg/ml (0-14)
[2023-05-17 16:17] LABS: Thyroid Stimulating Hormone 1.213 uIu/ml (0.300-4.500)
[2023-05-17] MEDS: KETOROLAC TROMETHAMINE 15 MG/ML VIAL IV ONE (16:21)
[2023-05-17] MEDS: MAGNESIUM SULFATE / D5W 1 GM/100 ML BAG IV SCH (16:22)
[2023-05-17] MEDS: POTASSIUM CHLORIDE / WTR 10 MEQ/100 ML PLCT IV ONE (16:22)
--- NOTE | 2023-05-17 16:36 | History & Physical Report ---
Date of Service May 17, 2023 Assessment & Plan (1) Alcohol withdrawal: Plan: Patient presented for alcohol withdrawal request Drinks 5th of vodka / daily; secondary to PTSD Last drink the morning of 05/17 Hx of multiple hospitalizations for alcohol withdrawal including DTs seizures requiring ICU admission Will admit to PCU for now as hemodynamically stable No leukocytosis; afebrile EKG NSR at 84 bpm; QTc 496 CXR NAF Mild anion gap elevation at 15 hCG negative Urine tox screen negative; salicylates negative; acetaminophen negative Medical alcohol level 341.9 on arrival Lipase ordered, pending; hx of pancreatitis Continuous telemetry monitoring AWSS protocol with Ativan Fall precautions Daily thiamine and folic acid supplementation Continue gabapentin 300 mg 3 times daily for anxiety and sciatica Will start on Librium taper Psychiatry consulted at patient's request; requesting inpatient psychiatry at [facility], where she has been in the past A.m. CBC, BMP, Mag, LFTs, PT/INRs (2) History of seizure due to alcohol withdrawal: Plan: Seizures x 3 (all precipitate by alcohol withdrawal) Ativan 2 mg IV q5m x 3 max doses as needed for active seizure Seizure precautions (3) Elevated liver transaminase level: Plan: Elevated transaminases (AST 297, ALT 156, alk phos 125 on arrival) Hepatic steatosis noted on abdomen/pelvic CT on 03/13/2023 Dose reduced Librium taper Trend AM LFTs and obtain further imaging if indicated (4) Vomiting: Plan: Zofran as needed; QTc 496 IVF w/ LR at 80mL/hr x 1 Famotidine 20 mg IV twice daily (5) Hypomagnesemia: Plan: Magnesium 1.4 on arrival Magnesium sulfate 1 g IV x 2 Repeat a.m. mag (6) Hypokalemia: Plan: K 3.3 on arrival K rider 10 mill equivalents IV x 1 Potassium 40 mg p.o. x 1 Recheck a.m. potassium Plan Disposition: Admit to PCU telemetry Full code Clear liquid diet for now, and advance as tolerated VTE PPx: SCDs History of Present Illness Chief Complaint: Alcohol withdrawal Primary Care Provider: NO PCP Radha is a 37-year-old female with PMH of alcohol use disorder, hepatic steatosis, alcohol withdrawal seizures x 3, B12 deficiency, GERD, and anxiety with depression. She presented for alcohol withdrawal on 05/17. Patient reports that she normally consumes one 5th of vodka per day. Last drink was this morning on 05/17. Binges due to PTSD and anxiety Hx of seizures in the past; worried about that, brought her in Last seizure 1.5 months ago Found by mom Stopped drinking this morning 5th of Vodka/day took Cymbalta, dhara, buspar, propranol, and viseril Denies prior hallucinations, Chest pain, heart racing Normal for withdrawals in the past Substernal Constant Stabbing comes and goes Heaviness on chest No radiation to back No pain in left arm, jaw Stomach pain on right side RUQ abdominal pain x two days In the past has used Valium and Ativan for withdrawal No prior DTs Rx of Librium taper on discharge in the past No smoking ED course: Toradol 10 mg IV Valium 5 mg IV Zofran 4 mg IV NSS 500 mL IV K riders 10 mill equivalents x 1 Magnesium sulfate 1 g IV Banana bag ROS: Patient endorses sweating (after stopping alc), tremors, PRESTON, lightheadedness with standing, chest pain, chest palpitations, N/V, RUQ abdominal pain, numbness/tingling in hands. Patient denies fever, chills, body aches, confusion, hallucinations, diarrhea, or urinary s/s. Allergies Allergy/AdvReac Type Severity Reaction Status Date / Time lactose AdvReac Intermediate GI DISTRESS Verified 05/17/23 17:27 Home Medications Medication Instructions Recorded Confirmed Type mirtazapine 15 mg tablet 15 mg PO HS 01/15/22 05/17/23 History linaclotide 145 mcg capsule 145 mcg PO DAILY 04/21/22 05/17/23 History (Linzess) duloxetine 60 mg capsule,delayed 60 mg PO QAM 04/29/22 05/17/23 History release gabapentin 300 mg capsule 300 mg PO TID 05/23/22 05/17/23 History hydroxyzine pamoate 50 mg capsule 50 mg PO Q6 PRN Anxiety 09/08/22 05/17/23 History folic acid 1 mg tablet 1 mg PO DAILY 10/16/22 05/17/23 History propranolol 10 mg tablet 10 mg PO BID #30 tabs 11/11/22 05/17/23 Rx prazosin 1 mg capsule 3 mg PO HS 03/14/23 05/17/23 History buspirone 10 mg tablet 10 mg PO TID 04/29/23 05/17/23 History duloxetine 30 mg capsule,delayed 30 mg PO DAILY 04/29/23 05/17/23 History release sprinkle potassium chloride 40 mEq/15 mL 40 meq PO DAILY 04/29/23 05/17/23 History oral liquid vit no.95-ferrous 1 tab PO DAILY 04/29/23 05/17/23 History fumarate 28 mg-folic acid 800 mcg tablet () Past Med/Surg History Medical History Hypokalemia Hypophosphatemia Irritable bowel syndrome Hyponatremia Leukocytosis Elevated lactic acid level Alcoholic gastritis High anion gap metabolic acidosis Alcoholic ketoacidosis Alcohol withdrawal Alcoholic intoxication Sciatica Transaminitis Alcoholism Chest pain at rest History of intussusception Thrombocytopenia Tension headache Breast lump on left side at 11 o'clock position Hypomagnesemia Reflux gastritis Miscarriage Anxiety with depression PTSD (post-traumatic stress disorder) Hepatic steatosis Pancreatitis Surgical History S/P dilation and curettage H/O foot surgery Previous section Family History Mother Depression Anxiety Brother Depression Anxiety Denies family history of Ovarian cancer Prostate cancer Diabetes Myocardial infarction Breast cancer Colorectal cancer Hypertension Social History Smoking Status: Never smoker Second Hand Exposure: No; Do You Dip or Chew Tobacco: No; Hx Alcohol Use: Yes Alcohol type: hard liquor Hx Substance Use: No Preferred Language: Arabic Communication Ability: Effective Visual Impairment: No Limitations Hearing Ability: Normal Material Processor Required: No Beliefs That Will Affect Care: None marital status: Current Living Situation: Family Current Living Situation Comment: recently discharged from rehab 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[place] [employer] How many Children do You have: 1 Feels Safe at Home: Yes Childhood Exposure to Second-Hand Smoke: No Diet: regular Dental Care, Regularly: Yes Physical Activity Frequency: 5-6 Times per Week Seatbelt Use: always Sunscreen Use: Yes Assistive Devices: None Review of Systems Review of Systems: See HPI above Physical Exam Physical Exam: General: no acute distress; non-toxic appearing; well-nourished; cooperative HEENT: normocephalic, atraumatic; no scleral icterus; PERRLA w/ EOMs intact; moist mucus membrane; vision and hearing grossly intact Neck: supple; no JVD; no lymphadenopathy; trachea midline Skin: warm, dry without signs of tenting; no cyanosis; no rashes, bruising, lesions, or erythema noted CV: chest wall NTP; RRR; S1/S2 normal; no murmurs/rubs/gallops; pulses intact and symmetric at radial, DP, and PT Lungs: no acute respiratory distress; symmetrical chest wall expansion; clear breath sounds across all lung falcon w/o adventitious sounds; no wheezing ABD: Soft, NTP; BS present; no rebound/guarding; no ascites; no distention; negative CVA tenderness MSK: no tics or fasciculations; no edema noted in the LEs b/l, nonerythematous Neuro: A&Ox3; normal mood and affect; fluent speech; no focal deficits; sensation grossly intact in the LEs b/l Results & Data Results & Data Vital Signs (Past 12 Hours) Vital Signs Temp Pulse Resp BP BP Pulse Ox O2 Del Method 05/17/23 16:13 83 05/17/23 15:40 Room Air 05/17/23 15:40 18 119/88 93 Room Air 05/17/23 14:55 36.3 C L 103 H 18 128/86 92 Room Air Laboratory Results Abnormal lab results 05/17/23 05/17/23 Range/Units 15:25 15:26 RBC 3.71 L (4.20-5.40) M/uL Hct 33.9 L (37.0-47.0) % RDW Std Deviation 49.7 H (36.4-46.3) fL RDW Coeff of D[place]in 14.9 H (11.5-14.5) % Potassium 3.3 L (3.5-5.1) mmol/L Anion Gap 15 H (3-11) Magnesium 1.4 L (1.7-2.4) mg/dl AST 297 H (13-39) U/L ALT 156 H (7-52) U/L Alkaline Phosphatase 125 H (34-104) U/L Urine Blood 1+ H (Negative) U Epithel Cells (Auto) >30 H (0-5) /lpf Urine Bacteria (Auto) 1+ H (Negative) Salicylates < 3.0 L (3.0-30) mg/dl Acetaminophen < 3 L (10-30) ug/ml Ethyl Alcohol mg/dL 341.9 H (<10.0) mg/dl Diagnostic Findings Chest X-Ray 05/17/23 15:06 XR chest 1V portable HISTORY: 37 years-old Female weakness acute weakness COMPARISON: 04/29/2023 TECHNIQUE: AP view the chest FINDINGS: Mid thoracic dextroscoliosis. Cardiomediastinal and hilar silhouettes are within normal limits. No pneumothorax, pleural effusion or airspace consolidation. IMPRESSION: No acute process. ACT 112: Negative or not required by law. The above report was generated using voice recognition software. It may contain grammatical, syntax or spelling errors. Electronically signed by: [place] Fernando M.D. 05/17/2023 3:44 PM Supervising Physician Co-Signing Physician Notes Patient seen and examined, chart reviewed, case discussed with Ambika Torres I agree with the assessment and plan as above except as otherwise noted Labs and images reviewed Radha is a 37-year-old female with a past medical history of alcohol abuse, multiple episodes of alcohol withdrawal, alcohol withdrawal seizures, and major depression who presents with a desire to return to [facility] and to get sober. She attempted to cut back drinking, normally drinks up to 1/5 of vodka per day. Has developed shakiness and tremors similar to prior withdrawal. She notes that she did have alcohol withdrawal seizure in the past and 2 months ago. She reports she had been on Keppra at 1 period in time however this was discontinued as she has never had a seizure outside of alcohol withdrawal. Alcohol on admission 341 with negative Tylenol/salicylate. She was tremulous and sweaty and received 5 mg of Valium while in the ER preadmission and felt much better with this. She notes that she has been treated with both Librium tapers and phenobarbital in the past which have both worked well for her. As she has already been given benzos to avoid coadministration respiratory risks will admit on Librium protocol dose reduced for liver disease. She has had hepatic steatosis noted previously and has chronic transaminitis in the setting of alcohol use. No increased/new abdominal pain. Will continue Librium, Ativan a WSS protocol, daily thiamine. Ativan 2 mg every 5 minutes x 3 doses on-call if needed for seizure. Agree with assessment and management as above. Recommend naltrexone/pharmacologically assisted maintenance of sobriety on discharge when stable. PG Care Time/CCT Total # of Minutes Spent Total Time Spent with Patient: Total time spent is greater than 50% in coordination of care (as documented) at patient's floor/unit and/or counseling patient: [place] [address] INT INP/OBS CARE 75MIN Patient Type Established History Comprehensive Exam Comprehensive Medical Decision Making High Complexity Diagnoses Alcohol withdrawal F10.930 Complication of substance-induced condition: uncomplicated History of seizure due to alcohol withdrawal Z87.898; Z86.59 Elevated liver transaminase level R74.01 Vomiting R11.2 Nausea presence: with nausea Vomiting type: unspecified Hypomagnesemia E83.42 Hypokalemia E87.6 (1) Alcohol withdrawal Complication of substance-induced condition: uncomplicated Qualified Code(s): F10.930 - Alcohol use, unspecified with withdrawal, uncomplicated (4) Vomiting Nausea presence: with nausea Vomiting type: unspecified Qualified Code(s): R11.2 - Nausea with vomiting, unspecified
[2023-05-17] MEDS ORDERED: Ativan IV Alcohol Withdrawal--Active Protocol IV PRN (17:05)
[2023-05-17] MEDS ORDERED: LORazepam 3 MG in SYRINGE 1.5 ML IV PRN (17:05)
[2023-05-17] MEDS ORDERED: LORazepam 2 MG in SYRINGE 1 ML IV PRN ×2 (17:05→17:15)
[2023-05-17] MEDS ORDERED: chlordiazePOXIDE ALCOHOL WITHDRAWL 25MG PO STA (17:12)
[2023-05-17 17:33] LABS: Prothrombin Time 10.5 Seconds (9.0-12.0)
[2023-05-17 18:09] LABS: Folate (Folic Acid),Ser orPlas > 22.30 ng/ml (>5.38)
[2023-05-17 18:10] LABS: Vitamin B12 488 pg/ml (180-914)
[2023-05-17] MEDS: chlordiazePOXIDE HCl 25 MG CAP PO SCH (18:27)
[2023-05-17] MEDS ORDERED: ONDANSETRON INJ 2 MG/ML 2 ML VIAL IV PRN (20:01)
[2023-05-17] MEDS: GABAPENTIN 300 MG CAP PO SCH (20:50)
[2023-05-17] MEDS: FAMOTIDINE 20 MG in SYRINGE 3 ML IV SCH (20:50)
[2023-05-17] MEDS: LACTATED RINGER'S 1,000 ML IV SCH (20:50)
[2023-05-17] MEDS: busPIRone 5 MG TAB PO SCH (20:51)
[2023-05-17] MEDS: PRAZOSIN HCL 1 MG CAP PO SCH (20:51)
[2023-05-17] MEDS: PROPRANOLOL HCL 10 MG TAB PO SCH (20:51)
[2023-05-17] MEDS: MIRTAZAPINE TAB 15 MG TAB PO SCH (20:52)
[2023-05-17] MEDS ORDERED: FAMOTIDINE 200 MG/20 ML VIAL IV SCH (21:00)
[2023-05-17] MEDS: hydrOXYzine HCl 25 MG TAB PO PRN (21:59)
[2023-05-17] MEDS: ACETAMINOPHEN 325 MG TAB PO PRN (21:59)
[2023-05-17] MEDS: POTASSIUM CHLORIDE CRTAB 20 MEQ TABCR PO STA (22:18)
--- NOTE | 2023-05-18 07:17 | Hospitalist Progress Note ---
Date of Service May 18, 2023 Assessment & Plan (1) Alcohol withdrawal: Plan: Patient presented for alcohol withdrawal request Drinks 5th of vodka / daily; secondary to PTSD Last drink the morning of 05/17 Medical alcohol level 341.9 on arrival AWSS protocol with Ativan prn and librium taper Fall precautions Daily thiamine and folic acid supplementation Continue gabapentin 300 mg 3 times daily for anxiety and sciatica started on Librium taper Psychiatry consulted at patient's request; requesting inpatient psychiatry at [place], where she has been in the past (2) History of seizure due to alcohol withdrawal: Plan: Seizures x 3 (all precipitate by alcohol withdrawal) Ativan 2 mg IV q5m x 3 max doses as needed for active seizure Seizure precautions, continues on neurontin (3) Elevated liver transaminase level: Plan: Elevated transaminases (AST 297, ALT 156, alk phos 125 on arrival), likely alcoholic hepatitis on top of her Hepatic steatosis noted on abdomen/pelvic CT on 03/13/2023 not in range to do discriminant function as coag and bili are not significanlty changed Plan Vomiting likely due to alcohol gastritis resulting in hypokalemia and hypomagnesemia, will use parenteral antiemetics, and replete electrolytes parenterally on pepcid for alcoholic gastritis Full code VTE PPx: SCDs Admission and Anticipated Discharge Date Admission Date: May 17, 2023 Subjective pt is slightly tremulous, some mild RUQ abdominal pain, is now desiring to go to the [place] for substance abuse and psychological councelling Physical Exam Physical Exam: Pt is awake and alert no asterixis abd is soft and non tender, mild RUQ pain but no organomegally Results & Data Results & Data Vital Signs (Past 12 Hours) Vital Signs Temp Pulse Pulse Resp BP BP BP 05/18/23 07:13 73 05/18/23 03:10 97.7 F 72 18 117/79 05/18/23 00:05 98.1 F 90 18 110/64 05/17/23 23:51 93 H 05/17/23 21:20 88 05/17/23 21:20 05/17/23 21:17 98.4 F 91 H 19 140/99 05/17/23 21:00 88 15 05/17/23 21:00 134/94 05/17/23 20:30 86 16 05/17/23 20:30 132/90 05/17/23 20:01 91 H 05/17/23 20:00 128/98 05/17/23 20:00 89 14 05/17/23 19:30 90 15 05/17/23 19:30 117/83 Pulse Ox O2 Del Method O2 Flow Rate 05/18/23 07:13 05/18/23 03:10 97 Nasal Cannula 2 05/18/23 00:05 96 Nasal Cannula 2 05/17/23 23:51 05/17/23 21:20 05/17/23 21:20 Room Air, Nasal Cannula 2 05/17/23 21:17 99 Room Air 05/17/23 21:00 100 05/17/23 21:00 05/17/23 20:30 100 05/17/23 20:30 05/17/23 20:01 05/17/23 20:00 05/17/23 20:00 97 05/17/23 19:30 05/17/23 19:30 Laboratory Results Reviewed chemistry reviewed CBC reviewed coagulation Does have transaminitis PG Care Time/CCT Total # of Minutes Spent Total Time Spent with Patient: Total time spent is greater than 50% in coordination of care (as documented) at patient's floor/unit and/or counseling patient: Coding Level of Care Code 73797 SUB INP/OBS CARE 2/35MIN Diagnoses Alcohol withdrawal F10.930 Complication of substance-induced condition: uncomplicated History of seizure due to alcohol withdrawal Z87.898; Z86.59 Elevated liver transaminase level R74.01 (1) Alcohol withdrawal Complication of substance-induced condition: uncomplicated Qualified Code(s): F10.930 - Alcohol use, unspecified with withdrawal, uncomplicated
[2023-05-18 07:58] LABS: Albumin Level 3.7 gm/dl (3.4-5.0); BUN Creatinine Ratio 9.1 (10-20); Bilirubin Direct 0.2 mg/dl (0-0.2); Bilirubin,Total 0.9 mg/dl (0.2-1.0); Calcium 7.9 mg/dl (8.6-10.3); Creatinine Clr Calc Pharmacy 140.6 ml/min; Est GFR (African American) 129.9 ml/min; Est GFR (Non-African American) 112.1 ml/min; Magnesium 1.7 mg/dl (1.7-2.4); Potassium 3.8 mmol/L (3.5-5.1); Total Protein 5.9 gm/dl (6.0-8.3)
[2023-05-18 08:09] LABS: Prothrombin Time 10.7 Seconds (9.0-12.0)
[2023-05-18 08:40] LABS: Hematocrit (blood only) 33.8 % (37.0-47.0); Hemoglobin 11.2 g/dl (12.0-16.0); Mean Corpuscular Hemoglobin 32.1 pg (25.0-34.0); Mean Corpuscular Hgb Conc 33.1 g/dL (32.0-36.0); Mean Corpuscular Volume 96.8 fL (80.0-100.0); Mean Platelet Volume 10.2 fL (9.4-12.4); Platelet Count 127 K/uL (130-400); RDW Coefficient of Variation 15.4 % (11.5-14.5); RDW Standard Deviation 53.9 fL (36.4-46.3); Red Blood Count 3.49 M/uL (4.20-5.40); White Blood Count 3.34 K/ul (4.8-10.8)
[2023-05-18 08:42] LABS: Basophils # (auto) 0.04 K/uL (0.00-0.20); Basophils % (auto) 1.2 %; Eosinophils # (auto) 0.07 K/uL (0.00-0.50); Eosinophils % (auto) 2.1 %; Immature Granulocytes # (auto) 0.02 K/uL (0.01-0.20); Immature Granulocytes % (auto) 0.6 %; Lymphocytes # (auto) 1.87 K/uL (1.20-3.40); Monocytes # (auto) 0.19 K/uL (0.11-0.59); Monocytes % (auto) 5.7 %; Neutrophils # (auto) 1.15 K/uL (1.40-6.50); Neutrophils % (auto) 34.4 %; Platelet Estimate Decreased (Normal)
[2023-05-18] MEDS: DULoxetine HCL 30 MG CAP PO SCH (09:44)
[2023-05-18] MEDS: DULoxetine HCL 60 MG CAP PO SCH (09:44)
[2023-05-18] MEDS: THIAMINE HCL 100 MG TAB PO SCH (09:45)
[2023-05-18] MEDS: LINACLOTIDE 145 MCG CAPSULE PO SCH (09:45)
[2023-05-18] MEDS: FOLIC ACID 1 MG TAB PO SCH (09:46)
[2023-05-18] MEDS: LORazepam 1 MG in SYRINGE 0.5 ML IV PRN (16:15)
[2023-05-18] MEDS: chlordiazePOXIDE HCl 25 MG CAP PO SCH (19:50)
--- NOTE | 2023-05-19 06:17 | Electrocardiogram Report ---
Test Reason : Blood Pressure : / mmHG Vent. Rate : 084 BPM Atrial Rate : 084 BPM P-R Int : 142 ms QRS Dur : 084 ms QT Int : 420 ms P-R-T Axes : 039 014 -08 degrees QTc Int : 496 ms Normal sinus rhythm Cannot rule out Anterior infarct , age undetermined Abnormal ECG When compared with ECG of 29-APR-2023 19:20, No significant change was found Confirmed by Laurent Merchant ([id number]) on 05/19/2023 6:17:42 AM Referred By: Confirmed By:Laurent Merchant
--- NOTE | 2023-05-19 06:32 | Electrocardiogram Report ---
Test Reason : Blood Pressure : / mmHG Vent. Rate : 083 BPM Atrial Rate : 083 BPM P-R Int : 144 ms QRS Dur : 084 ms QT Int : 380 ms P-R-T Axes : 039 027 -03 degrees QTc Int : 447 ms Normal sinus rhythm Low voltage QRS T wave abnormality, consider anterior ischemia Prolonged QT Abnormal ECG When compared with ECG of 17-MAY-2023 15:30, (unconfirmed) No significant change was found Confirmed by Laurent Merchant ([id number]) on 05/19/2023 6:32:39 AM Referred By: REFERRED SELF Confirmed By:Laurent Merchant
[2023-05-19 06:39] LABS: Basophils # (auto) 0.04 K/uL (0.00-0.20); Basophils % (auto) 1.2 %; Hematocrit (blood only) 35.2 % (37.0-47.0); Hemoglobin 11.9 g/dl (12.0-16.0); Immature Granulocytes # (auto) 0.02 K/uL (0.01-0.20); Immature Granulocytes % (auto) 0.6 %; Lymphocytes # (auto) 1.48 K/uL (1.20-3.40); Lymphocytes % (auto) 44.2 %; Mean Corpuscular Hemoglobin 32.5 pg (25.0-34.0); Mean Corpuscular Hgb Conc 33.8 g/dL (32.0-36.0); Mean Corpuscular Volume 96.2 fL (80.0-100.0); Mean Platelet Volume 11.2 fL (9.4-12.4); Monocytes # (auto) 0.24 K/uL (0.11-0.59); Monocytes % (auto) 7.2 %; Neutrophils # (auto) 1.47 K/uL (1.40-6.50); Neutrophils % (auto) 43.8 %; Platelet Count 114 K/uL (130-400); RDW Standard Deviation 52.9 fL (36.4-46.3); Red Blood Count 3.66 M/uL (4.20-5.40); White Blood Count 3.35 K/ul (4.8-10.8)
[2023-05-19 06:48] LABS: BUN Creatinine Ratio 11.1 (10-20); Calcium 8.9 mg/dl (8.6-10.3); Est GFR (African American) 123.1 ml/min; Est GFR (Non-African American) 106.2 ml/min; Magnesium 1.8 mg/dl (1.7-2.4)
[2023-05-19 07:18] LABS: Prothrombin Time 10.6 Seconds (9.0-12.0)
--- NOTE | 2023-05-19 16:20 | Discharge Summary ---
Date of Service May 19, 2023 Admission HPI Per Admitting Provider Radha is a 37-year-old female with PMH of alcohol use disorder, hepatic steatosis, alcohol withdrawal seizures x 3, B12 deficiency, GERD, and anxiety with depression. She presented for alcohol withdrawal on 05/17. Patient reports that she normally consumes one 5th of vodka per day. Last drink was this morning on 05/17. Binges due to PTSD and anxiety Hx of seizures in the past; worried about that, brought her in Last seizure 1.5 months ago Found by mom Stopped drinking this morning 5th of Vodka/day took Cymbalta, dhara, buspar, propranol, and viseril Denies prior hallucinations, Chest pain, heart racing Normal for withdrawals in the past Substernal Constant Stabbing comes and goes Heaviness on chest No radiation to back No pain in left arm, jaw Stomach pain on right side RUQ abdominal pain x two days In the past has used Valium and Ativan for withdrawal No prior DTs Rx of Librium taper on discharge in the past No smoking ED course: Toradol 10 mg IV Valium 5 mg IV Zofran 4 mg IV NSS 500 mL IV K riders 10 mill equivalents x 1 Magnesium sulfate 1 g IV Banana bag ROS: Patient endorses sweating (after stopping alc), tremors, PRESTON, lightheadedness with standing, chest pain, chest palpitations, N/V, RUQ abdominal pain, numbness/tingling in hands. Patient denies fever, chills, body aches, confusion, hallucinations, diarrhea, or urinary s/s. Principal Diagnosis alcohol withdrawal Discharge Exam awake maybe some mild shakes, no asterixis no tremors Discharge Data Allergies Allergy/AdvReac Type Severity Reaction Status Date / Time lactose AdvReac Intermediate GI DISTRESS Verified 05/17/23 17:27 Consultations 05/17/23 16:17 ED Decision to Admit Stat 05/18/23 07:48 Consult Behavioral Health Liaison Routine Hospital Course (1) Alcohol withdrawal: Patient presented for alcohol withdrawal request Drinks 5th of vodka / daily; secondary to PTSD Last drink the morning of 05/17 Medical alcohol level 341.9 on arrival will be discharged on home Librium taper and did arrange outpt counselling services Continue gabapentin 300 mg 3 times daily for anxiety and sciatica Psychiatry consulted at patient's request (2) History of seizure due to alcohol withdrawal: Seizures x 3 (all precipitate by alcohol withdrawal) Ativan 2 mg IV q5m x 3 max doses as needed for active seizure Seizure precautions, continues on neurontin (3) Elevated liver transaminase level: Elevated transaminases (AST 297, ALT 156, alk phos 125 on arrival), likely alcoholic hepatitis on top of her Hepatic steatosis noted on abdomen/pelvic CT on 03/13/2023 not in range to do discriminant function as coag and bili are not significanlty changed Plan Vomiting likely due to alcohol gastritis resulting in hypokalemia and hypomagnesemia, will use parenteral antiemetics, and replete electrolytes parenterally Full code VTE PPx: SCDs Total Time Total Time Spent Total Time Spent (In Minutes): It required greater than 30 minutes to prepare this patient for discharge. Discharge Plan Discharge Items Patient Disposition: Home - Self-Care Reason For Visit: ALCOHOL WITHDRAWAL Discharge Diagnosis: Alcohol withdrawal Condition on Discharge: Fair Activity: Resume your previous activity Non-emergency contact: Primary Care Provider and Specialist Call non-emergency contact if: your symptoms worsen Follow-up/Referrals: PCP,NO [Primary Care Provider] - Diet: Regular Addtl Attending Provider Instructions: The only way beat alcoholism is to not have any alcohol at all, I know that in times of stress you may think that alcohol will make the stress less for a while, but eventually the alcohol will take you away from your family and eventually from your good health. Pending Studies at Discharge: No Stand-Alone Forms: My [facility] [id number], Smoking Cessation Medications and DC Order Prescriptions: New chlordiazepoxide HCl 10 mg Capsule 10 mg PO UD Qty: 18 0RF Rx Instructions: one three times a day for 3 days, then 2xs a day for 3 days then at night for 3 days Continued duloxetine 60 mg capsule,delayed release(DR/EC) 60 mg PO QAM Rx Instructions: TOTAL DOSE 90 MG--TAKES WITH 30 MG CAP. propranolol 10 mg tablet 10 mg PO BID Qty: 30 6RF mirtazapine 15 mg tablet 15 mg PO HS Linzess 145 mcg capsule 145 mcg PO DAILY gabapentin 300 mg capsule 300 mg PO TID hydroxyzine pamoate 50 mg capsule 50 mg PO Q6 PRN (Reason: Anxiety) potassium chloride 40 mEq/15 mL liquid 40 meq PO DAILY buspirone 10 mg Tablet 10 mg PO TID PNV cmb#[id number]-ferrous fumarate-FA [] 28 mg iron- 800 mcg Tablet 1 tab PO DAILY duloxetine 30 mg Capsule, Delayed Rel Sprinkle 30 mg PO DAILY Rx Instructions: TOTAL DOSE 90 MG--TAKES WITH 60 MG CAP. folic acid 1 mg tablet 1 mg PO DAILY prazosin 1 mg capsule 3 mg PO HS Discharge Orders: Discharge Order (Routine); Ordered 05/19/23 Ordered By: Justin Bustamante Admission Data Admit Date/Time: 05/17/23 17:12 Attending Provider: Justin Bustamante Admit Provider: Sylvester Simpson Primary Care Provider: PCP,NO Other Providers: Sylvester Simpson Coding Level of Care Code 92156 INP/OBS DISCH >30 MIN Diagnoses Alcohol withdrawal F10.930 Complication of substance-induced condition: uncomplicated History of seizure due to alcohol withdrawal Z87.898; Z86.59 Elevated liver transaminase level R74.01
[2023-05-21] MEDS ORDERED: chlordiazePOXIDE HCl 5 MG CAP PO SCH
== END 2023-05-19 17:00 | disposition home or self-care (01) | DRG 897 ==
LOC: ED 14:53 → EDINP 17:12 → SUATTDRO 17:12 → 4W 21:08

== ENCOUNTER 2023-07-18 22:49 | Inpatient (IN) ==
[2023-07-18] MEDS: diazePAM 5 MG/ML 10ML VIAL IV STA (23:31)
--- NOTE | 2023-07-18 23:34 | Emergency Department Note ---
Impression & Plan Alcohol abuse, Vomiting, Seizure-like activity ED Provider Note Provider: Wilbur Patton MD DATE OF SERVICE: 07/18/2023 CHIEF COMPLAINT: Seizure, alcohol withdrawal HISTORY OF PRESENT ILLNESS: Patient is a 38-year-old female history of alcohol abuse and seizures in the past from withdrawal presenting here today with father. Has been drinking heavily recently with vodka. Last drink was sometime yesterday but she is unsure exactly when she was intoxicated. Had a seizure by her report earlier today when she is sitting on the floor in her room and according to father who drove her here today for additional seizures. Described generalized seizure activity with loss of consciousness. Least 1 episode of incontinence. Reports some nausea and 1 episode of vomiting. Patient was somewhat drowsy awakening from these and lasted a minute or so according to father. Patient denies hallucinations but states she feels quite tremulous and shaky. Little bit of chest discomfort as well as a little bit of right upper abdominal discomfort. Denies any falls. Was on Vivitrol recently but has only been about 3 weeks since he is relapsed. PAST MEDICAL HISTORY: As noted above MEDICATIONS: Reviewed home medications SOCIAL HISTORY: History of alcohol abuse, denies drug use PHYSICAL EXAM: GENERAL: alert and oriented on stretcher. Somewhat tremulous Head: normocephalic and atraumatic EYES: No injection, discharge or icterus. PERRL, EOMI. NECK: Trachea midline. Supple ENT: Mucous membranes pink and moist. LUNGS: Airway patent. No retractions. Breath sounds clear HEART: Regular tachycardic rate and rhythm. No chest wall tenderness ABDOMEN: Soft with maybe some very slight right upper quadrant pain to deep palpation. SKIN: Acyanotic, warm, dry, without rashes EXTREMITIES: Without swelling, tenderness or deformity NEUROLOGICAL: No focal deficits moving all extremities. No aphasia. No facial droop or slurred speech. Psych: Somewhat tearful at times. A little bit anxious and slight depression reported. Denies any SI or HI. No hallucinations reported. EK bpm normal sinus rhythm. No PVC or PAC. No acute ST segment elevation or depression with a QTc of 462. CONTINUOUS CARDIAC MONITORING: was ordered and showed a heart rate of 80s to 100s bpm in normal sinus rhythm to sinus tachycardia GCS 15. Patient's laboratory studies and imaging reviewed. Differential includes Alcohol intoxication, toxicologic, infection, hypoglycemia, electrolyte abnormalities, cardiac sources, intracerebral event, neurologic, trauma, as well as other pathologies. IMPRESSION/MEDICAL DECISION MAKING: Patient with extensive history of alcohol abuse and withdrawal in the past now appears to have had multiple seizures. CT head to be completed. Not having active hallucinations at this time. No other significant evidence of trauma on exam. EKG and basic labs were sent. INR and CK sent given the history of seizure and look for any significant liver dysfunction or signs of rhabdomyolysis. Banana bag and normal saline ordered. Given some Valium to help with withdrawal symptomatologies. Patient agreeable at this time for inpatient rehab but will have to see if this continues. Blood work here without leukocytosis or anemia. Negative COVID testing. No severe electrolyte abnormalities with normal renal function. AST slightly elevated 57 but ALT normal at 25 and bilirubin normal at 0.4. Prolactin normal at 24. Negative . Alcohol it will still significantly elevated at 348. Unclear if she is truly in withdrawal yet given the significant elevation. Is quite tremulous however given a small amount of additional Ativan. Discussed with the patient she is agreeable to stay given her significant intoxication and the seizure-like episodes for further evaluation here. Father does later tell me in confidence before leaving for the evening that patient has expressed to him suicidal thoughts the last several days. Reports that she is quite hopeless with her alcohol situation and has reported to him that she wanted to be . When asked if he would complete petition statement he declines. Did discuss with the patient who denies any suicidal thoughts although reports maybe a little bit of depression. She is still highly intoxicated and will need to be reevaluated when she is more sober. DIAGNOSIS: Alcohol abuse and alcohol intoxication, seizure-like activity DISPOSITION: Hospitalist will evaluate Patient was agreeable with this plan. Past Med/Surg History Medical History Hypokalemia Hypophosphatemia Irritable bowel syndrome Hyponatremia Leukocytosis Elevated lactic acid level Alcoholic gastritis High anion gap metabolic acidosis Alcoholic ketoacidosis Alcohol withdrawal Alcoholic intoxication Sciatica Transaminitis Alcoholism Chest pain at rest History of intussusception Thrombocytopenia Tension headache Breast lump on left side at 11 o'clock position Hypomagnesemia Reflux gastritis Miscarriage Anxiety with depression PTSD (post-traumatic stress disorder) Hepatic steatosis Pancreatitis Surgical History S/P dilation and curettage H/O foot surgery Previous section Family History Mother Depression Anxiety Brother Depression Anxiety Denies family history of Ovarian cancer Prostate cancer Diabetes Myocardial infarction Breast cancer Colorectal cancer Hypertension Social History Smoking Status: Never smoker Second Hand Exposure: No; Do You Dip or Chew Tobacco: No; Hx Alcohol Use: Yes Alcohol type: hard liquor Hx Substance Use: No Preferred Language: Marshallese Communication Ability: Effective Visual Impairment: No Limitations Hearing Ability: Normal Greens Cutter Required: No Beliefs That Will Affect Care: None marital status: Current Living Situation: Family Current Living Situation Comment: mom, dad, son 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[email or web address] How many Children do You have: 1 Feels Safe at Home: Yes Childhood Exposure to Second-Hand Smoke: No Diet: regular Dental Care, Regularly: Yes Physical Activity Frequency: 5-6 Times per Week Seatbelt Use: always Sunscreen Use: Yes Assistive Devices: None Allergies Allergies Allergy/AdvReac Type Severity Reaction Status Date / Time lactose AdvReac Intermediate GI DISTRESS Verified 07/19/23 00:18 Home Meds Home Medications Medication Instructions Recorded Confirmed mirtazapine 15 mg tablet 15 mg PO HS 01/15/22 07/19/23 linaclotide 145 mcg capsule 145 mcg PO DAILY 04/21/22 07/19/23 (Linzess) duloxetine 60 mg capsule,delayed 60 mg PO QAM 04/29/22 07/19/23 release gabapentin 300 mg capsule 300 mg PO TID 05/23/22 07/19/23 hydroxyzine pamoate 50 mg capsule 50 mg PO Q6 PRN Anxiety 09/08/22 07/19/23 folic acid 1 mg tablet 1 mg PO DAILY 10/16/22 07/19/23 prazosin 1 mg capsule 3 mg PO HS 03/14/23 07/19/23 buspirone 10 mg tablet 10 mg PO TID 04/29/23 07/19/23 duloxetine 30 mg capsule,delayed 30 mg PO DAILY 04/29/23 07/19/23 release sprinkle potassium chloride 40 mEq/15 mL 40 meq PO DAILY 04/29/23 07/19/23 oral liquid vit no.95-ferrous 1 tab PO DAILY 04/29/23 07/19/23 fumarate 28 mg-folic acid 800 mcg tablet () chlordiazepoxide HCl 10 mg capsule 10 mg PO Q6H PRN PANIC ATTACKS 07/19/23 07/19/23 Previous Rx's Medication Instructions Recorded propranolol 10 mg tablet 10 mg PO BID #30 tabs 11/11/22 Results & Data (ED) Vital Signs Vital Signs - 24 hr 07/18/23 22:54 07/18/23 23:54 07/19/23 01:29 Temperature 36.7 C 37 C Temperature Source Temporal Artery Scan Oral Pulse Rate 114 H Pulse Rate [Apical] 86 92 H Respiratory Rate 22 18 20 Respiratory Effort / Characteristics Non-Labored Spontaneous Non-Labored Spontaneous Respiratory Depth Normal Normal Respiratory Pattern Regular Regular Blood Pressure 163/105 H Blood Pressure [Right Arm] 142/101 H 137/94 Blood Pressure Mean 124 Blood Pressure Mean [Right Arm] 114 108 Blood Pressure Position [Right Arm] Semi-fowlers Semi-fowlers Pulse Oximetry 98 96 99 Oxygen Delivery Method Room Air Room Air Room Air Sepsis Recent Fever Within 48 Hours No Sepsis New/Unexplained Change in Mental Status No Sepsis Action Taken by Nursing No Action Required Laboratory Data 07/18/23 23:23 07/18/23 23:23 Lab Results 07/18/23 Range/Units 23:23 WBC 8.70 (4.8-10.8) K/ul RBC 4.29 (4.20-5.40) M/uL Hgb 13.9 (12.0-16.0) g/dl Hct 40.3 (37.0-47.0) % MCV 93.9 (80.0-100.0) fL MCH 32.4 (25.0-34.0) pg MCHC 34.5 (32.0-36.0) g/dL RDW Std Deviation 46.2 (36.4-46.3) fL RDW Coeff of [place] 13.5 (11.5-14.5) % Plt Count 338 (130-400) K/uL MPV 9.8 (9.4-12.4) fL Immature Gran % (Auto) 0.3 % Neut % (Auto) 61.6 % Lymph % (Auto) 31.8 % [place] % (Auto) 4.6 % Eos % (Auto) 0.9 % Baso % (Auto) 0.8 % Neut # (Auto) 5.35 (1.40-6.50) K/uL Lymph # (Auto) 2.77 (1.20-3.40) K/uL [place] # (Auto) 0.40 (0.11-0.59) K/uL Eos # (Auto) 0.08 (0.00-0.50) K/uL Baso # (Auto) 0.07 (0.00-0.20) K/uL Immature Gran # (Auto) 0.03 (0.01-0.20) K/uL PT Cancelled INR Cancelled Sodium 139 (136-145) mmol/L Potassium 3.8 (3.5-5.1) mmol/L Chloride 99 (98-107) mmol/L Carbon Dioxide 25 (21-32) mmol/L Anion Gap 15 H (3-11) BUN 10 (6-23) mg/dl Creatinine 0.75 (0.6-1.2) mg/dl Est Cr Clr Drug Dosing 116.2 ml/min Est GFR ( Amer) 116.4 ml/min Est GFR (Non-Af Amer) 100.4 ml/min BUN/Creatinine Ratio 13.3 (10-20) Glucose 98 (70-99(Fasting)) mg/dl Calcium 8.7 (8.6-10.3) mg/dl Total Bilirubin 0.4 (0.2-1.0) mg/dl AST 57 H (13-39) U/L ALT 25 (7-52) U/L Alkaline Phosphatase 62 (34-104) U/L Total Creatine Kinase 163 (26-192) U/L Troponin I High Sens 5.1 (0-14) pg/ml Total Protein 6.9 (6.0-8.3) gm/dl Albumin 4.2 (3.4-5.0) gm/dl Globulin 2.7 (2.5-4.0) gm/dl Albumin/Globulin Ratio 1.6 (0.9-2) Lipase 27 (11-82) U/L TSH 2.311 (0.300-4.500) uIu/ml Prolactin 24.06 ng/ml HCG, Qual Negative (Negative) Urine Color Yellow Urine Appearance Clear (Clear) Urine pH 6.5 (4.5-7.5) Ur Specific [place] 1.014 (1.000-1.030) Urine Protein 1+ H (Negative) Urine Glucose (UA) Negative (Negative) Urine Ketones Negative (Negative) Urine Blood Trace H (Negative) Urine Nitrite Negative (Negative) Urine Bilirubin Negative (Negative) Urine Urobilinogen Negative (Negative) Ur Leukocyte Esterase Negative (Negative) Urine WBC (Auto) 0-5 (0-5) /hpf Urine RBC (Auto) 0-2 (0-2) /hpf U Hyaline Cast (Auto) 3-5 H (0-2) /lpf U Epithel Cells (Auto) 6-10 H (0-2) /hpf Urine Bacteria (Auto) 1+ H (None Seen) Salicylates < 3.0 L (3.0-30) mg/dl Urine Opiates Screen Neg (Neg) Ur Methadone, Qual Neg (Neg) Acetaminophen < 3 L (10-30) ug/ml Urine Barbiturates Neg (Neg) Ur Phencyclidine (PCP) Neg (Neg) U Amphetamin/Meth Scrn Neg (Neg) MDMA (Ecstasy) Screen Neg (Neg) U Benzodiazepines Scrn Neg (Neg) Ur Cocaine Metabolite Neg (Neg) U Marijuana (THC) Screen Neg (Neg) Ethyl Alcohol mg/dL 348.8 H (<10.0) mg/dl SARS-CoV-2, RNA, NAAT NEGATIVE (NEGATIVE) Administered Medications Chlordiazepoxide HCl (Chlordiazepoxide Hcl 25 Mg Cap) 50 mg PO Q6H [facility] Stop: 07/19/23 20:01 Last Admin: 07/19/23 01:57 Dose: 50 mg Documented By: ANNMARIE Discontinued Medications Diazepam (Diazepam 5 Mg/Ml 10ml Vial) 10 mg IV NOW STA Stop: 07/18/23 23:25 Last Admin: 07/18/23 23:31 Dose: 10 mg Documented By: ANNMARIE Gabapentin (Gabapentin 600 Mg Tab) 1,200 mg PO NOW ONE Stop: 07/19/23 01:46 Last Admin: 07/19/23 01:57 Dose: 1,200 mg Documented By: ANNMARIE Sodium Chloride (Nss) 1,000 mls @ 999 mls/hr IV .Q1H1M [facility] Stop: 07/19/23 00:15 Last Infusion: 07/19/23 02:02 Dose: Infused Documented By: Admin: 07/18/23 23:35 Dose: 999 mls/hr Documented By: ANNMARIE Multivitamins 10 ml/ Thiamine HCl 100 mg/ Folic Acid 1 mg/Sodium Chloride 1,011.2 mls @ 500 mls/hr IV .Q2H2M ONE Stop: 07/19/23 01:14 Last Infusion: 07/19/23 02:07 Dose: Infused Documented By: Admin: 07/19/23 00:05 Dose: 500 mls/hr Documented By: ANNMARIE Lorazepam (Lorazepam 1 Mg/1 Ml Syr Ed Inj Use) 2 mg IV ONE STA Stop: 07/19/23 01:00 Last Admin: 07/19/23 01:40 Dose: Not Given Documented By: BARRY Lorazepam (Lorazepam 1 Mg/1 Ml Syr Ed Inj Use) 2 mg IV ONE STA Stop: 07/19/23 01:23 Last Admin: 07/19/23 01:40 Dose: 2 mg Documented By: BARRY Ondansetron HCl (Ondansetron Inj 2 Mg/Ml 2 Ml Vial) 4 mg IV NOW STA Stop: 07/18/23 23:25 Last Admin: 07/18/23 23:40 Dose: 4 mg Documented By: ANNMARIE Imaging Data Radiologist's Impression: Head CT 07/18/23 23:13 Exam(s): CT HEAD Without Contrast EXAM: CT Head Without Intravenous Contrast CLINICAL HISTORY: Seizure. TECHNIQUE: Axial computed tomography images of the head/brain without intravenous contrast. CTDI is 38.31 mGy and DLP is 625.8 mGy-cm. Automated exposure control was utilized for the study. A dose lowering technique was utilized adhering to the principles of ALARA. COMPARISON: CT head 04/29/2023 FINDINGS: Brain: Unremarkable. No significant white matter disease. No intracranial hemorrhage, mass-effect or midline shift. No abnormal extra axial fluid. No evidence of acute infarct. Ventricles: Unremarkable. No ventriculomegaly. Bones/joints: Unremarkable. No acute fracture. Soft tissues: Unremarkable. Sinuses: Unremarkable as visualized. No acute sinusitis. Mastoid air cells: Unremarkable as visualized. No mastoid effusion. IMPRESSION: No acute intracranial finding. Electronically signed by: Araseli Ye MD 07/19/23 00:46 AM Discharge Plan Visit Data Chief Complaint: Seizure Stated Complaint: SEVERE ALCOHOL WITHDRAWL, MULTIPLE SEIZURES ED Provider: Wilbur Patton Discharge Problem: Alcohol abuse, Vomiting, Seizure-like activity Patient Disposition: Being Evaluated by Hospitalist Forms Stand Alone Forms: [facility] Prescriptions Prescriptions: No Action duloxetine 60 mg capsule,delayed release(DR/EC) 60 mg PO QAM Rx Instructions: TOTAL DOSE 90 MG--TAKES WITH 30 MG CAP. propranolol 10 mg tablet 10 mg PO BID Qty: 30 6RF mirtazapine 15 mg tablet 15 mg PO HS Linzess 145 mcg capsule 145 mcg PO DAILY gabapentin 300 mg capsule 300 mg PO TID hydroxyzine pamoate 50 mg capsule 50 mg PO Q6 PRN (Reason: Anxiety) potassium chloride 40 mEq/15 mL liquid 40 meq PO DAILY buspirone 10 mg Tablet 10 mg PO TID PNV cmb#95-ferrous fumarate-FA [] 28 mg iron- 800 mcg Tablet 1 tab PO DAILY duloxetine 30 mg Capsule, Delayed Rel Sprinkle 30 mg PO DAILY Rx Instructions: TOTAL DOSE 90 MG--TAKES WITH 60 MG CAP. folic acid 1 mg tablet 1 mg PO DAILY prazosin 1 mg capsule 3 mg PO HS chlordiazepoxide HCl 10 mg capsule 10 mg PO Q6H PRN (Reason: PANIC ATTACKS) Referrals Referrals: PCP,NO [Primary Care Provider] -
[2023-07-18] MEDS: SODIUM CHLORIDE 0.9% 1,000 ML IV SCH (23:35)
[2023-07-18] MEDS: ONDANSETRON INJ 2 MG/ML 2 ML VIAL IV STA (23:40)
[2023-07-18 23:44] LABS: Basophils # (auto) 0.07 K/uL (0.00-0.20); Basophils % (auto) 0.8 %; Eosinophils # (auto) 0.08 K/uL (0.00-0.50); Eosinophils % (auto) 0.9 %; Hematocrit (blood only) 40.3 % (37.0-47.0); Hemoglobin 13.9 g/dl (12.0-16.0); Immature Granulocytes # (auto) 0.03 K/uL (0.01-0.20); Immature Granulocytes % (auto) 0.3 %; Lymphocytes # (auto) 2.77 K/uL (1.20-3.40); Lymphocytes % (auto) 31.8 %; Mean Corpuscular Hemoglobin 32.4 pg (25.0-34.0); Mean Corpuscular Hgb Conc 34.5 g/dL (32.0-36.0); Mean Corpuscular Volume 93.9 fL (80.0-100.0); Mean Platelet Volume 9.8 fL (9.4-12.4); Monocytes % (auto) 4.6 %; Neutrophils # (auto) 5.35 K/uL (1.40-6.50); Neutrophils % (auto) 61.6 %; Platelet Count 338 K/uL (130-400); RDW Coefficient of Variation 13.5 % (11.5-14.5); RDW Standard Deviation 46.2 fL (36.4-46.3); Red Blood Count 4.29 M/uL (4.20-5.40)
[2023-07-18 23:46] LABS: Appearance Urine Clear (Clear); Bacteria Urine Automated 1+ (None Seen); Bilirubin Urine Negative (Negative); Blood Urine Trace (Negative); Color Urine Yellow; Glucose Urine UA Negative (Negative); Ketones Urine Negative (Negative); Leukocyte Esterase Urine Negative (Negative); Nitrite Urine Negative (Negative); Protein Urine 1+ (Negative); RBC Urine Automated 0-2 /hpf (0-2); Specific Gravity Urine 1.014 (1.000-1.030); Urobilinogen Urine Negative (Negative); WBC Urine Automated 0-5 /hpf (0-5); pH Urine 6.5 (4.5-7.5)
[2023-07-18 23:55] LABS: Pregnancy Test, Serum Negative (Negative)
[2023-07-19 00:02] LABS: Albumin Globulin Ratio 1.6 (0.9-2); Albumin Level 4.2 gm/dl (3.4-5.0); BUN Creatinine Ratio 13.3 (10-20); Bilirubin,Total 0.4 mg/dl (0.2-1.0); Calcium 8.7 mg/dl (8.6-10.3); Creatinine Clr Calc Pharmacy 116.2 ml/min; Est GFR (African American) 116.4 ml/min; Est GFR (Non-African American) 100.4 ml/min; Globulin 2.7 gm/dl (2.5-4.0); Potassium 3.8 mmol/L (3.5-5.1); Total Protein 6.9 gm/dl (6.0-8.3)
[2023-07-19] MEDS: MULTI-VITAMIN INFUSION 10 ML, THIAMINE HCL 100 MG, FOLIC ACID 1 MG in SODIUM CHLORIDE 0... IV ONE (00:05)
[2023-07-19 00:08] LABS: Acetaminophen < 3 ug/ml (10-30); Salicylate < 3.0 mg/dl (3.0-30)
[2023-07-19 00:18] LABS: Thyroid Stimulating Hormone 2.311 uIu/ml (0.300-4.500)
[2023-07-19 00:47] LABS: Amphetamines+Metham, Urine Neg (Neg); Barbiturates, Urine Neg (Neg); Benzodiazepine, Urine Neg (Neg); Cocaine, Urine Neg (Neg); MDMA (Ecstacy), Urine Neg (Neg); Marijuana, Urine Neg (Neg); Methadone, Urine Neg (Neg); Opiate, Urine Neg (Neg); Phencyclidine, Urine Neg (Neg)
--- NOTE | 2023-07-19 00:47 | CT Scan Report ---
Exam(s): CT HEAD Without Contrast EXAM: CT Head Without Intravenous Contrast CLINICAL HISTORY: Seizure. TECHNIQUE: Axial computed tomography images of the head/brain without intravenous contrast. CTDI is 38.31 mGy and DLP is 625.8 mGy-cm. Automated exposure control was utilized for the study. A dose lowering technique was utilized adhering to the principles of ALARA. COMPARISON: CT head 04/29/2023 FINDINGS: Brain: Unremarkable. No significant white matter disease. No intracranial hemorrhage, mass-effect or midline shift. No abnormal extra axial fluid. No evidence of acute infarct. Ventricles: Unremarkable. No ventriculomegaly. Bones/joints: Unremarkable. No acute fracture. Soft tissues: Unremarkable. Sinuses: Unremarkable as visualized. No acute sinusitis. Mastoid air cells: Unremarkable as visualized. No mastoid effusion. IMPRESSION: No acute intracranial finding. Electronically signed by: Araseli Ye MD 07/19/23 00:46 AM
[2023-07-19 00:52] LABS: Troponin I High Sensitivity 5.1 pg/ml (0-14)
[2023-07-19] MEDS ORDERED: Ativan IV Alcohol Withdrawal--Active Protocol IV PRN (01:23)
[2023-07-19] MEDS ORDERED: GABAPENTIN 1200MG ALCOHOL WITHDRAWAL LOAD PO STA (01:23)
[2023-07-19] MEDS ORDERED: LORazepam 3 MG in SYRINGE 1.5 ML IV PRN (01:23)
[2023-07-19] MEDS ORDERED: chlordiazePOXIDE ALCOHOL WITHDRAWL 50MG PO STA (01:23)
[2023-07-19] MEDS: LORazepam 1 MG/1 ML SYR ED Inj Use IV STA ×2 (01:40)
--- NOTE | 2023-07-19 01:48 | History & Physical Report ---
Date of Service July 19, 2023 Assessment & Plan (1) Seizure-like activity: (2) History of seizure due to alcohol withdrawal: (3) Alcohol abuse: (4) Anxiety with depression: (5) B12 deficiency: (6) Depression: (7) Hepatic steatosis: (8) GERD (gastroesophageal reflux disease): Plan Seizure-like activity/alcohol abuse/history of seizure secondary to alcohol withdrawal- Unclear with the patient has been taking her medications AWSS protocol with IV Ativan Complete banana bag, then placed on LR at 125 mL/h Thiamine 200 mg IV every morning Folic acid 1 mg IV every morning Zofran 4 mg IV every 6 hours as needed Protonix 40 mg IV daily Start gabapentin loading protocol with 1200 mg Start chlordiazepoxide loading program with 50 mg Admit to PCU Seizure protocol Of note, this is the patient's 20th admission to the hospitalist service since 08/27/2020 Anxiety with depression- Increase duloxetine to 60 mg p.o. twice daily For now, hold buspirone, hydroxyzine, mirtazapine and prazosin Hypertension/headache prevention- Continue propranolol 10 mg p.o. twice daily History of Present Illness Chief Complaint: The patient presents to the emergency department with complaint of several short lived self terminating seizures that occurred today, secondary to concerns of alcohol withdrawal Primary Care Provider: NO PCP The patient is a 38-year-old female with past medical history including alcoholism, alcohol withdrawal seizures, abnormal LFTs, GERD, reflux gastritis, anxiety depression, B12 deficiency, reflux esophagitis and hepatic steatosis. She was noted to have several episodes of seizure-like activity in the outpatient setting, and was brought into the emergency department by her father, reported increased use of vodka over the past several weeks. Workup in the emergency department revealed and normal CT scan of head, normal COVID-19, chemistry panel was normal except for AST of 57, and alcohol level was 348.8. From the ED the patient received the following: Banana bag, lorazepam 2 mg IV, normal saline 1 L, Valium 10 mg IV and Zofran 4 mg IV. Patient did not have any seizure-like activity while in the emergency department Allergies Allergy/AdvReac Type Severity Reaction Status Date / Time lactose AdvReac Intermediate GI DISTRESS Verified 07/19/23 00:18 Home Medications Medication Instructions Recorded Confirmed Type mirtazapine 15 mg tablet 15 mg PO HS 01/15/22 07/19/23 History linaclotide 145 mcg capsule 145 mcg PO DAILY 04/21/22 07/19/23 History (Linzess) duloxetine 60 mg capsule,delayed 60 mg PO QAM 04/29/22 07/19/23 History release gabapentin 300 mg capsule 300 mg PO TID 05/23/22 07/19/23 History hydroxyzine pamoate 50 mg capsule 50 mg PO Q6 PRN Anxiety 09/08/22 07/19/23 History folic acid 1 mg tablet 1 mg PO DAILY 10/16/22 07/19/23 History propranolol 10 mg tablet 10 mg PO BID #30 tabs 11/11/22 07/19/23 Rx prazosin 1 mg capsule 3 mg PO HS 03/14/23 07/19/23 History buspirone 10 mg tablet 10 mg PO TID 04/29/23 07/19/23 History duloxetine 30 mg capsule,delayed 30 mg PO DAILY 04/29/23 07/19/23 History release sprinkle potassium chloride 40 mEq/15 mL 40 meq PO DAILY 04/29/23 07/19/23 History oral liquid vit no.95-ferrous 1 tab PO DAILY 04/29/23 07/19/23 History fumarate 28 mg-folic acid 800 mcg tablet () chlordiazepoxide HCl 10 mg capsule 10 mg PO Q6H PRN PANIC ATTACKS 07/19/23 07/19/23 History Past Med/Surg History Medical History Hypokalemia Hypophosphatemia Irritable bowel syndrome Hyponatremia Leukocytosis Elevated lactic acid level Alcoholic gastritis High anion gap metabolic acidosis Alcoholic ketoacidosis Alcohol withdrawal Alcoholic intoxication Sciatica Transaminitis Alcoholism Chest pain at rest History of intussusception Thrombocytopenia Tension headache Breast lump on left side at 11 o'clock position Hypomagnesemia Reflux gastritis Miscarriage Anxiety with depression PTSD (post-traumatic stress disorder) Hepatic steatosis Pancreatitis Surgical History S/P dilation and curettage H/O foot surgery Previous section Family History Mother Depression Anxiety Brother Depression Anxiety Denies family history of Ovarian cancer Prostate cancer Diabetes Myocardial infarction Breast cancer Colorectal cancer Hypertension Social History Smoking Status: Never smoker Second Hand Exposure: No; Do You Dip or Chew Tobacco: No; Hx Alcohol Use: Yes Alcohol type: hard liquor Hx Substance Use: No Preferred Language: [place] Communication Ability: Effective Visual Impairment: No Limitations Hearing Ability: Normal Transfer Station Operator Required: No Beliefs That Will Affect Care: None marital status: Current Living Situation: Family Current Living Situation Comment: mom, dad, son 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[employer] How many Children do You have: 1 Feels Safe at Home: Yes Childhood Exposure to Second-Hand Smoke: No Diet: regular Dental Care, Regularly: Yes Physical Activity Frequency: 5-6 Times per Week Seatbelt Use: always Sunscreen Use: Yes Assistive Devices: None Review of Systems Review of Systems: The patient denies chest pain, palpitations, shortness of breath, dyspnea on exertion, cough, lower extremity swelling, sore throat, fevers, chills, sweats, nausea, vomiting, diarrhea , constipation, abdominal pain, pelvic pain, blood in urine or stool, dysuria, urinary frequency or urgency, lightheadedness, dizziness, headache, rash, abnormal bruising or bleeding, imbalance, focal or generalized weakness, numbness or tingling in arms or legs, generalized arthralgias or myalgias, back or neck pain, or night sweats. The review of systems is otherwise negative other than for that already noted above, and at least 10 systems have been reviewed. Physical Exam Physical Exam: The patient is awake, alert and oriented 3, well developed and well nourished, normocephalic and atraumatic, lying in bed and in no acute distress. HEENT--PERRL, EOMI, mucous membranes and oropharynx mildly dry. Neck--supple. No JVD. No bruits. Thyroid normal, trachea midline, no adenopathy. Heart--normal S1 and S2. No murmurs, rubs or gallops. Lungs--clear bilaterally, no respiratory distress, no accessory muscle use. Abdomen--normal bowel sounds and soft. Nontender. Nondistended, no hernias or masses, no organomegaly. Extremities--no cyanosis or clubbing. No edema. There are good distal pulses b/l. Dermatologic--normal skin turgor, normal color, no abnormal lymph nodes, no rash. Neurologic--cranial nerves II through XII grossly intact. Rheumatologic--normal range of motion. Psychiatric--normal affect. Results & Data Results & Data Vital Signs (Past 12 Hours) Vital Signs Temp Pulse Pulse Resp BP BP Pulse Ox 07/19/23 01:29 37 C 92 H 20 137/94 99 07/18/23 23:54 86 18 142/101 H 96 07/18/23 22:54 36.7 C 114 H 22 163/105 H 98 O2 Del Method 07/19/23 01:29 Room Air 07/18/23 23:54 Room Air 07/18/23 22:54 Room Air Laboratory Results Laboratory Results WBC 8.70 K/ul (4.8-10.8) 07/18/23 23:23 RBC 4.29 M/uL (4.20-5.40) 07/18/23 23:23 Hgb 13.9 g/dl (12.0-16.0) 07/18/23 23:23 Hct 40.3 % (37.0-47.0) 07/18/23 23:23 MCV 93.9 fL (80.0-100.0) 07/18/23 23:23 MCH 32.4 pg (25.0-34.0) 07/18/23 23:23 MCHC 34.5 g/dL (32.0-36.0) 07/18/23 23:23 RDW Std Deviation 46.2 fL (36.4-46.3) 07/18/23 23:23 RDW Coeff of [place] 13.5 % (11.5-14.5) 07/18/23 23:23 Plt Count 338 K/uL (130-400) 07/18/23 23:23 MPV 9.8 fL (9.4-12.4) 07/18/23 23:23 Immature Gran % (Auto) 0.3 % 07/18/23 23:23 Neut % (Auto) 61.6 % 07/18/23 23:23 Lymph % (Auto) 31.8 % 07/18/23 23:23 [place] % (Auto) 4.6 % 07/18/23 23:23 Eos % (Auto) 0.9 % 07/18/23 23:23 Baso % (Auto) 0.8 % 07/18/23 23:23 Neut # (Auto) 5.35 K/uL (1.40-6.50) 07/18/23 23:23 Lymph # (Auto) 2.77 K/uL (1.20-3.40) 07/18/23 23:23 [place] # (Auto) 0.40 K/uL (0.11-0.59) 07/18/23 23:23 Eos # (Auto) 0.08 K/uL (0.00-0.50) 07/18/23 23:23 Baso # (Auto) 0.07 K/uL (0.00-0.20) 07/18/23 23:23 Immature Gran # (Auto) 0.03 K/uL (0.01-0.20) 07/18/23 23:23 PT 10.8 Seconds (9.0-12.0) 07/19/23 02:07 INR 1.0 (0.9-1.1) 07/19/23 02:07 Sodium 139 mmol/L (136-145) 07/18/23 23:23 Potassium 3.8 mmol/L (3.5-5.1) 07/18/23 23:23 Chloride 99 mmol/L (98-107) 07/18/23 23:23 Carbon Dioxide 25 mmol/L (21-32) 07/18/23 23:23 Anion Gap 15 (3-11) H 07/18/23 23:23 BUN 10 mg/dl (6-23) 07/18/23 23:23 Creatinine 0.75 mg/dl (0.6-1.2) 07/18/23 23:23 Est Cr Clr Drug Dosing 116.2 ml/min 07/18/23 23:23 Est GFR ( Amer) 116.4 ml/min 07/18/23 23:23 Est GFR (Non-Af Amer) 100.4 ml/min 07/18/23 23:23 BUN/Creatinine Ratio 13.3 (10-20) 07/18/23 23:23 Glucose 98 mg/dl (70-99(Fasting)) 07/18/23 23:23 Calcium 8.7 mg/dl (8.6-10.3) 07/18/23 23:23 Total Bilirubin 0.4 mg/dl (0.2-1.0) 07/18/23 23:23 AST 57 U/L (13-39) H 07/18/23 23:23 ALT 25 U/L (7-52) 07/18/23 23:23 Alkaline Phosphatase 62 U/L (34-104) 07/18/23 23:23 Total Creatine Kinase 163 U/L (26-192) 07/18/23 23:23 Troponin I High Sens 5.1 pg/ml (0-14) 07/18/23 23:23 Total Protein 6.9 gm/dl (6.0-8.3) 07/18/23 23: Albumin 4.2 gm/dl (3.4-5.0) 07/18/23 23: Globulin 2.7 gm/dl (2.5-4.0) 07/18/23 23:23 Albumin/Globulin Ratio 1.6 (0.9-2) 07/18/23 23:23 Lipase 27 U/L (11-82) 07/18/23 23:23 TSH 2.311 uIu/ml (0.300-4.500) 07/18/23 23:23 Prolactin 24.06 ng/ml 07/18/23 23:23 HCG, Qual Negative (Negative) 07/18/23 23:23 Urine Color Yellow 07/18/23 23:23 Urine Appearance Clear (Clear) 07/18/23 23:23 Urine pH 6.5 (4.5-7.5) 07/18/23 23:23 Ur Specific [place] 1.014 (1.000-1.030) 07/18/23 23:23 Urine Protein 1+ (Negative) H 07/18/23 23:23 Urine Glucose (UA) Negative (Negative) 07/18/23 23:23 Urine Ketones Negative (Negative) 07/18/23 23:23 Urine Blood Trace (Negative) H 07/18/23 23:23 Urine Nitrite Negative (Negative) 07/18/23 23:23 Urine Bilirubin Negative (Negative) 07/18/23 23:23 Urine Urobilinogen Negative (Negative) 07/18/23 23:23 Ur Leukocyte Esterase Negative (Negative) 07/18/23 23:23 Urine WBC (Auto) 0-5 /hpf (0-5) 07/18/23 23:23 Urine RBC (Auto) 0-2 /hpf (0-2) 07/18/23 23:23 U Hyaline Cast (Auto) 3-5 /lpf (0-2) H 07/18/23 23:23 U Epithel Cells (Auto) 6-10 /hpf (0-2) H 07/18/23 23:23 Urine Bacteria (Auto) 1+ (None Seen) H 07/18/23 23:23 Salicylates < 3.0 mg/dl (3.0-30) L 07/18/23 23:23 Urine Opiates Screen Neg (Neg) 07/18/23 23:23 Ur Methadone, Qual Neg (Neg) 07/18/23 23:23 Acetaminophen < 3 ug/ml (10-30) L 07/18/23 23:23 Urine Barbiturates Neg (Neg) 07/18/23 23:23 Ur Phencyclidine (PCP) Neg (Neg) 07/18/23 23:23 U Amphetamin/Meth Scrn Neg (Neg) 07/18/23 23:23 MDMA (Ecstasy) Screen Neg (Neg) 07/18/23 23:23 U Benzodiazepines Scrn Neg (Neg) 07/18/23 23:23 Ur Cocaine Metabolite Neg (Neg) 07/18/23 23:23 U Marijuana (THC) Screen Neg (Neg) 07/18/23 23:23 Ethyl Alcohol mg/dL 348.8 mg/dl (<10.0) H 07/18/23 23:23 SARS-CoV-2, RNA, NAAT NEGATIVE (NEGATIVE) 07/18/23 23:[address] 07/18/23 23:13 Exam(s): CT HEAD Without Contrast EXAM: CT Head Without Intravenous Contrast CLINICAL HISTORY: Seizure. TECHNIQUE: Axial computed tomography images of the head/brain without intravenous contrast. CTDI is 38.31 mGy and DLP is 625.8 mGy-cm. Automated exposure control was utilized for the study. A dose lowering technique was utilized adhering to the principles of ALARA. COMPARISON: CT head 04/29/2023 FINDINGS: Brain: Unremarkable. No significant white matter disease. No intracranial hemorrhage, mass-effect or midline shift. No abnormal extra axial fluid. No evidence of acute infarct. Ventricles: Unremarkable. No ventriculomegaly. Bones/joints: Unremarkable. No acute fracture. Soft tissues: Unremarkable. Sinuses: Unremarkable as visualized. No acute sinusitis. Mastoid air cells: Unremarkable as visualized. No mastoid effusion. IMPRESSION: No acute intracranial finding. Electronically signed by: Araseli Ye MD 07/19/23 00:46 AM Code Status & VTE Plan Code Status Full code VTE Prophylaxis Plan VTE Prophylaxis will be ordered: Yes PG Care Time/CCT Total # of Minutes Spent Total Time Spent with Patient: Total time spent is greater than 50% in coordination of care (as documented) at patient's floor/unit and/or counseling patient: Coding Level of Care Code 59080 INT INP/OBS CARE 3/75MIN Diagnoses Seizure-like activity R56.9 History of seizure due to alcohol withdrawal Z87.898; Z86.59 Alcohol abuse F10.10 Anxiety with depression F41.8 B12 deficiency E53.8 Depression F32.A Hepatic steatosis K76.0 GERD (gastroesophageal reflux disease) K21.9
[2023-07-19] MEDS: GABAPENTIN 600 MG TAB PO ONE (01:57)
[2023-07-19] MEDS: chlordiazePOXIDE HCl 25 MG CAP PO SCH (01:57)
[2023-07-19 02:57] LABS: Prothrombin Time 10.8 Seconds (9.0-12.0)
[2023-07-19] MEDS: LACTATED RINGER'S 1,000 ML IV SCH (03:15)
[2023-07-19] MEDS: LORazepam 1 MG in SYRINGE 0.5 ML IV PRN (04:50)
--- NOTE | 2023-07-19 06:14 | Electrocardiogram Report ---
Test Reason : Blood Pressure : / mmHG Vent. Rate : 083 BPM Atrial Rate : 083 BPM P-R Int : 122 ms QRS Dur : 084 ms QT Int : 394 ms P-R-T Axes : 025 034 019 degrees QTc Int : 462 ms Normal sinus rhythm Nonspecific ST abnormality When compared with ECG of 17-MAY-2023 21:30, T wave inversion no longer evident in Anterior leads Confirmed by Mike Brown ([id number] on 07/19/2023 6:13:56 AM Referred By: REFERRED SELF Confirmed By:Oren Brown
[2023-07-19] MEDS: DULoxetine HCL 60 MG CAP PO SCH (08:04)
[2023-07-19] MEDS: GABAPENTIN 600 MG TAB PO SCH ×2 (08:04→22:32)
[2023-07-19] MEDS: PROPRANOLOL HCL 10 MG TAB PO SCH (08:04)
[2023-07-19] MEDS: FOLIC ACID 1 MG in SYRINGE 9.8 ML IV SCH (08:05)
[2023-07-19] MEDS: THIAMINE HCL 200 MG in SODIUM CHLORIDE 0.9% 50 ML IV SCH (08:05)
[2023-07-19] MEDS: ONDANSETRON INJ 2 MG/ML 2 ML VIAL IV PRN (11:30)
[2023-07-19] MEDS: IBUPROFEN 600 MG TAB PO STA (12:49)
--- NOTE | 2023-07-19 14:19 | Hospitalist Progress Note ---
Date of Service July 19, 2023 Assessment & Plan (1) Seizure-like activity: Plan: Patient is a 38-year-old female with a history of alcohol use disorder who presents to the hospital for alcohol withdrawal. She has been started on a Librium taper and has been put on JAMES as protocol with as needed Ativan for withdrawal symptoms. Gabapentin has also been started. Patient is currently hemodynamically stable and without hallucinations at this time. Patient cu rrently admitted under the hospitalist service for monitoring and treatment of withdrawal symptoms. -Suspect secondary to alcohol withdrawal -No seizure-like activity noted since coming to the hospital on 07/18/2023 -Keep patient in telemetry -Librium taper as started by admitting team -AWSS protocol with as needed Ativan for withdrawal symptoms -Thiamine, folate daily -Maintenance LR at 125 cc/h -Zofran as needed -Seizure precautions -PPI daily (2) History of seizure due to alcohol withdrawal: Plan: As above (3) Alcohol abuse: Plan: - 20th admission to the hospital service since 08/27/2020 -Recalls that this bout of alcohol use was due to a PTSD induced nightmares -Patient receives Vivitrol once monthly and is due on 07/24/2023, appointment already scheduled (4) Anxiety with depression: Plan: - Continue increase duloxetine -Restart prazosin for nightmare prophylaxis -Otherwise buspirone, hydroxyzine, and mirtazapine on hold due to high benzodiazepine use while inpatient (5) B12 deficiency: Plan: - Thiamine IV as above (6) Hepatic steatosis: Plan: - Noted (7) GERD (gastroesophageal reflux disease): Plan: - PPI use as above Plan Disposition: Keep in PCU on Librium taper and JAMES as protocol DVT prophylaxis: Low risk Diet: Heart healthy CODE STATUS: Full code Admission and Anticipated Discharge Date Admission Date: July 19, 2023 Supervising Physician Co-Signing Physician Notes I also saw the patient confirmed méndez portions of clinical history and physical examination. At the time of our midmorning exam, the patient was lying semireclined in bed. Feeling tired, but improved compared to admission. No new complaints at the time of our visit. Alert and oriented; no distress or agitation appreciated Hemodynamically stable; afebrile Heart rhythm is regular, rate slightly tachycardic Respirations are nonlabored CT of the head completed upon admission shows no acute process Additional lab work relatively unremarkable except for minimal elevation of ALT (57) and ILDEFONSO 348.8 Seizure-like activity, secondary to withdrawal History of alcohol abuse I agree with the plan as delineated in the resident note above. Subjective Patient seen at bedside this morning. No acute events reported overnight. Patient certainly fatigued this morning but feels somewhat better than yesterday. No seizure-like activity overnight. Patient states that she does have a headache and would like to have something that will make it better. Experiencing some nausea but without vomiting. Otherwise no new complaints at this time. Review of Systems Review of Systems: All systems reviewed & are unremarkable except as noted in HPI & below Physical Exam Physical Exam: The patient is awake, alert and oriented 3, well developed and well nourished, normocephalic and atraumatic, lying in bed and in no acute distress. HEENT--PERRL, EOMI, mucous membranes and oropharynx mildly dry. Neck--supple. No JVD. No bruits. Thyroid normal, trachea midline, no adenopathy. Heart--normal S1 and S2. No murmurs, rubs or gallops. Lungs--clear bilaterally, no respiratory distress, no accessory muscle use. Abdomen--normal bowel sounds and soft. Nontender. Nondistended, no hernias or masses, no organomegaly. Extremities--no cyanosis or clubbing. No edema. There are good distal pulses b/l. Dermatologic--normal skin turgor, normal color, no abnormal lymph nodes, no rash. Neurologic--cranial nerves II through XII grossly intact. Resting tremor noted that worsens with arm extension Rheumatologic--normal range of motion. Psychiatric--anxious affect. Results & Data Results & Data Vital Signs (Past 12 Hours) Vital Signs Temp Pulse Pulse Resp BP BP Pulse Ox 07/19/23 11:00 37.2 C 118 H 18 118/73 100 07/19/23 10:00 93 H 14 98 07/19/23 09:00 88 18 100 07/19/23 08:00 82 07/19/23 08:00 107 H 14 135/84 100 07/19/23 07:00 91 H 15 99 07/19/23 06:00 97 H 14 100 07/19/23 05:00 96 H 16 97 07/19/23 04:00 98 H 17 98 07/19/23 03:21 36.9 C 108 H 16 141/97 H 100 07/19/23 03:10 07/19/23 03:00 96 H 16 93 07/19/23 02:33 37 C 90 18 131/89 99 O2 Del Method O2 Flow Rate 07/19/23 11:00 Nasal Cannula 2 07/19/23 10:00 07/19/23 09:00 07/19/23 08:00 07/19/23 08:00 07/19/23 07:00 07/19/23 06:00 07/19/23 05:00 07/19/23 04:00 07/19/23 03:21 Room Air 07/19/23 03:10 Nasal Cannula 2 07/19/23 03:00 07/19/23 02:33 Room Air
[2023-07-19] MEDS: PROCHLORPERAZINE 10 MG in SYRINGE 8 ML IV STA (14:45)
--- OUTSIDE RECORDS SUMMARY | 2023-07-19 18:14 | External Medical Summary | Continuity of Care Document ---
Author Name Unknown Organization [facility] [address] [place] [address] [phone] Encounter [facility] [id number] Date(s): 07/08/23 - 07/08/23 [facility] 0 [facility] 207 [facility] [address] [address] [phone] Encounter Diagnosis Body mass index [BMI] 27.0-27.9, adult(Discharge Diagnosis) - 07/08/23 Alcohol use disorder, severe, in early remission(Discharge Diagnosis) - 07/08/23 Generalized anxiety disorder(Discharge Diagnosis) - 07/08/23 Syncopal episodes(Discharge Diagnosis) - 07/08/23 Encounter for long-term current use of medication(Discharge Diagnosis) - 07/08/23 Alcohol dependence, in remission(Final) - Generalized anxiety disorder(Final) - Syncope and collapse(Final) - Other penitentiary (current) drug therapy(Final) - Discharge Disposition: Home or Self Care Attending Physician: DO Douglass Gretchen Elizabeth Allergies, Adverse Reactions, Alerts No Known Allergies Immunizations Given and Recorded Vaccine Date Status Refusal Reason SARS-CoV-2 mRNA (Pfizer 12+) bivalent 01/21/22 Rec orded SARS-CoV-2 (COVID-19) mRNA BNT-162b2 vax 02/27/21 Recorded SARS-CoV-2 (COVID-19) mRNA BNT-162b2 vax 05/16/20 Recorded SARS-CoV-2 (COVID-19) mRNA BNT-162b2 vax 03/27/20 Recorded Medications busPIRone 10 mg oral tablet Start: 07/08/23 14:42:00 EDT, 1 tab, PO, tid, Disp# 90 tab, TAKE 1 TABLET BY MOUTH 3 TIMES DAILY., [id number] Start Date: 07/08/23 Status: Ordered DULoxetine 60 mg oral delayed release capsule Start: 07/08/23 14:41:00 EDT, 1 cap, PO, Daily, Disp# 30 cap, Refills: 11, TAKE ONE CAPSULE BY MOUTH DAILY, [id number] Start Date: 07/08/23 Status: Ordered folic acid 1 mg oral tablet Start: 07/08/23 14:41:00 EDT, 1 tab, PO, Daily, Disp# 30 tab, Refills: 11, TAKE 1 TABLET BY MOUTH DAILY IN THE MORNING, [facility] Start Date: 07/08/23 Status: Ordered gabapentin 300 mg oral capsule Start: 07/08/23 14:40:00 EDT, 1 cap, PO, tid, Disp# 90 cap, Refills: 11, TAKE 1 CAPSULE 3 TIMES DAILY, [facility] Start Date: 07/08/23 Status: Ordered hydrOXYzine pamoate 50 mg oral capsule Start: 07/08/23 14:39:00 EDT, 1 cap, PO, qid, Disp# 120 cap, TAKE 1 CAPSULE BY MOUTH EVERY DAY NEEDED, PRN: as needed for anxiety, [facility] Start Date: 07/08/23 Status: Ordered Linzess 145 mcg oral capsule Start: 07/08/23 14:38:00 EDT, 1 cap, PO, Daily, Disp# 30 cap, Refills: 11, TAKE 1 CAPSULE DAILY IN THE MORNING, [facility]: [id number] Start Date: 07/08/23 Status: Ordered mirtazapine 15 mg oral tablet Start: 07/08/23 14:37:00 EDT, 1 tab, PO, Daily, Disp# 30 tab, Refills: 11, TAKE 1 TABLET BY MOUTH EVERY NIGHT, [facility]: [id number] Start Date: 07/08/23 Status: Ordered potassium chloride 20 mEq oral tablet, extended release Start: 07/08/23 14:36:00 EDT, 2 tab, PO, Daily, Disp# 60 tab, [facility]: [id number] Start Date: 07/08/23 Status: Ordered prazosin 1 mg oral capsule Start: 07/08/23 14:34:00 EDT, 3 cap, PO, qhs, Disp# 90 cap, Refills: 11, TAKE 3 CAPSULES BY MOUTH EVERY NIGHT, [facility]: [id number] Start Date: 07/08/23 Status: Ordered propranolol 10 mg oral tablet Start: 07/08/23 14:34:00 EDT, 1 tab, PO, bid, Disp# 60 tab, Refills: 11, TAKE 1 TABLET BY MOUTH TWICE DAILY, [facility]: [facility] Start Date: 07/08/23 Status: Ordered traZODone 50 mg oral tablet Start: 07/08/23 14:33:00 EDT, 1 tab, PO, qhs, Disp# 30 tab, [facility]: [facility] Start Date: 07/08/23 Status: Ordered Vivitrol 380 mg intramuscular injection, extended release Start: 07/08/23 14:22:00 EDT, 380 mg =, IM, [id number] Start Date: 07/08/23 Status: Ordered Vivitrol 380 mg intramuscular injection, extended release Start: 07/08/23 15:46:00 EDT, 380 mg =, IM, [id number], Disp# 1 each, Pharmacy: [facility] Start Date: 07/08/23 Status: Ordered Mental Status 07/08/23 Barriers to Learning one year None evide nt Mandatory Health Literacy Documentation Yes Health Literacy Communication Barriers N ever Primary Language Greek Problem List Condition Confirmation Course Effective Dates Status Health St [facility] Informant Alcohol use disorder, severe, in early remission Confirmed Active Diagnosis Diagnosis Type Effective Dates Health Status Clinical Service Informant Alcohol use disorder, severe, in early remission Discharge Diagnosis 07/08/23 Body mass index [BMI] 27.0-27.9, adult Discharge Diagnosis 07/08/23 Non-Specified Generalized anxiety disorder Discharge Diagnosis 07/08/23 Encounter for long-term current use of medication Discharge Diagnosis 07/08/23 Syncopal episodes Discharge Diagnosis 07/08/23 Results Laboratory List Name Date Comprehensive Metabolic Panel (COMP META B PANEL) 07/08/23 Drugs of Abuse w Confirmation, Urine (DA U11,MED W/CONF URN) 07/08/23 Most recent to oldest [Reference Range]: 1 eGFR CKD-EPI [>60 mL/min/1.73 m2] 79 mL/ min/1.73 m2 (07/08/23 3:10 PM) Methadone (u) NONE DETECTED *Unknown* (07/08/23 3:10 PM) U Buprenorph Lvl NONE DETECTED *Unknown* (07/08/23 3:10 PM) U Fentanyl Scr NONE DETECTED *Unknown* (07/08/23 3:10 PM) Methadone Metabolite (u) NONE DETECTED *Unknown* (07/08/23 3:10 PM) Estimated CrCl 100.50 mL/min (07/08/23 8:39 PM) Oxycodone (u) NONE DETECTED *Unknown* (07/08/23 3:10 PM) Anion Gap [5-14 mmol/L] 14 mmol/L (07/08/23 3:10 PM) Alb [3.5-5.2 g/dL] 4.1 g/dL (07/08/23 3:10 PM) Alk Phos [35-115 unit/L] 53 unit/L 1 (07/08/23 3:10 PM) ALT [0-33 unit/L] 26 unit/L (07/08/23 3:10 PM) Amphetamines(u) NONE DETECTED *Unknown* (07/08/23 3:10 PM) AST [0-32 unit/L] 36 unit/L *HI* (07/08/23 3:10 PM) Barbiturates(u) NONE DETECTED *Unknown* (07/08/23 3:10 PM) Benzodiazepines(u) NONE DETECTED *Unknown* (07/08/23 3:10 PM) BUN [6-23 mg/dL] 7 mg/dL (07/08/23 3:10 PM) Ca [8.4-10.2 mg/dL] 9.3 mg/dL (07/08/23 3:10 PM) Cl- [98-107 mmol/L] 104 mmol/L (07/08/23 3:10 PM) HCO3 [22-29 mmol/L] 22 mmol/L (07/08/23 3:10 PM) Cocaine(u) NONE DETECTED *Unknown* (07/08/23 3:10 PM) Cret [0.60-1.00 mg/dL] 0.94 mg/dL (07/08/23 3:10 PM) Glu [74-109 mg/dL] 88 mg/dL 2 (07/08/23 3:10 PM) K [3.5-5.1 mmol/L] 4.2 mmol/L (07/08/23 3:10 PM) Marijuana(u) NONE DETECTED *Unknown* (07/08/23 3:10 PM) Na [136-145 mmol/L] 140 mmol/L (07/08/23 3:10 PM) Opiates(u) NONE DETECTED *Unknown* (07/08/23 3:10 PM) T Bili [0.0-1.2 mg/dL] 0.1 mg/dL (07/08/23 3:10 PM) Prot [6.4-8.3 g/dL] 7.0 g/dL (07/08/23 3:10 PM) 1Result Comment: Low levels of ALKP may indicate a deficiency in zinc, magnesium, or malnutritionbutcan also be an indicator of a rare genetic disease hypophosphatasia (HPP). 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
[2023-07-20] MEDS: chlordiazePOXIDE HCl 25 MG CAP PO SCH (05:58)
[2023-07-20 07:58] LABS: Basophils # (auto) 0.05 K/uL (0.00-0.20); Eosinophils # (auto) 0.31 K/uL (0.00-0.50); Hematocrit (blood only) 33.4 % (37.0-47.0); Hemoglobin 11.5 g/dl (12.0-16.0); Immature Granulocytes # (auto) 0.02 K/uL (0.01-0.20); Immature Granulocytes % (auto) 0.4 %; Lymphocytes # (auto) 1.78 K/uL (1.20-3.40); Lymphocytes % (auto) 34.4 %; Mean Corpuscular Hgb Conc 34.4 g/dL (32.0-36.0); Mean Corpuscular Volume 95.7 fL (80.0-100.0); Mean Platelet Volume 9.8 fL (9.4-12.4); Monocytes # (auto) 0.32 K/uL (0.11-0.59); Monocytes % (auto) 6.2 %; Neutrophils # (auto) 2.69 K/uL (1.40-6.50); Platelet Count 194 K/uL (130-400); RDW Coefficient of Variation 12.8 % (11.5-14.5); RDW Standard Deviation 45.1 fL (36.4-46.3); Red Blood Count 3.49 M/uL (4.20-5.40); White Blood Count 5.17 K/ul (4.8-10.8)
[2023-07-20 08:23] LABS: Albumin Globulin Ratio 1.6 (0.9-2); Albumin Level 3.4 gm/dl (3.4-5.0); BUN Creatinine Ratio 11.6 (10-20); Bilirubin,Total 1.2 mg/dl (0.2-1.0); Calcium 8.3 mg/dl (8.6-10.3); Creatinine Clr Calc Pharmacy 139.7 ml/min; Est GFR (African American) 127.1 ml/min; Est GFR (Non-African American) 109.7 ml/min; Globulin 2.1 gm/dl (2.5-4.0); Magnesium 1.5 mg/dl (1.7-2.4); Potassium 3.7 mmol/L (3.5-5.1); Total Protein 5.5 gm/dl (6.0-8.3)
--- NOTE | 2023-07-20 14:29 | Hospitalist Progress Note ---
Date of Service July 20, 2023 Assessment & Plan (1) Seizure-like activity: Plan: Patient is a 38-year-old female with a history of alcohol use disorder who presents to the hospital for alcohol withdrawal. She has been started on a Librium taper and has been put on JAMES as protocol with as needed Ativan for withdrawal symptoms. Gabapentin has also been started. Patient is currently hemodynamically stable and without hallucinations at this time. Patient cu rrently admitted under the hospitalist service for monitoring and treatment of withdrawal symptoms. -Suspect secondary to alcohol withdrawal -No seizure-like activity noted since coming to the hospital on 07/18/2023 -Keep patient in telemetry -Librium taper as started by admitting team -AWSS protocol with as needed Ativan for withdrawal symptoms -Thiamine, folate daily -Maintenance LR at 125 cc/h -Zofran as needed -Seizure precautions -PPI daily -If no additional Ativan used overnight, likely discharge on 07/21/2023 (2) History of seizure due to alcohol withdrawal: Plan: As above (3) Alcohol abuse: Plan: - 20th admission to the hospital service since 08/27/2020 -Recalls that this bout of alcohol use was due to a PTSD induced nightmares -Patient receives Vivitrol once monthly and is due on 07/24/2023, appointment already scheduled (4) Anxiety with depression: Plan: - Continue increase duloxetine -Restart prazosin for nightmare prophylaxis, increased to 4 mg from her previous 3 mg dose -Otherwise buspirone, hydroxyzine, and mirtazapine on hold due to high benzodiazepine use while inpatient (5) B12 deficiency: Plan: - Thiamine IV as above (6) Hepatic steatosis: Plan: - Noted (7) GERD (gastroesophageal reflux disease): Plan: - PPI use as above Plan Disposition: Keep in PCU on Librium taper and JAMES as protocol DVT prophylaxis: Low risk Diet: Heart healthy CODE STATUS: Full code Admission and Anticipated Discharge Date Admission Date: July 19, 2023 Supervising Physician Co-Signing Physician Notes I also saw the patient confirmed méndez portions of clinical history and physical examination. Patient feeling better. Still slightly tremulous. She is open to seeing the behavioral health liaison. Exam 144/85, 76, 17, 36.8, 95% on room air Alert and oriented; no distress or agitation appreciated Hemodynamically stable; afebrile Heart regular rate and rhythm Respirations are nonlabored Seizure-like activity, secondary to withdrawal PTSD History of alcohol abuse Increase prazosin to 4 mg nightly for PTSD related nightmares; can increase by 1 mg/week as outpatient; discussed intended efficacy and possible side effects Consult behavioral health liaison Should be ready for discharge tomorrow See resident note for additional Subjective Patient seen at bedside this morning. No acute events reported overnight. Patient did have to use 1 mg of Ativan overnight for JAMES a score of 6 but overall feeling better. She would like to talk with the psych liaison to discuss resources in regards to her PTSD. She would also like to increase her prazosin to help with her PTSD induced nightmares. No other complaints at this time. Review of Systems Review of Systems: All systems reviewed & are unremarkable except as noted in HPI & below Physical Exam Physical Exam: The patient is awake, alert and oriented 3, well developed and well nourished, normocephalic and atraumatic, lying in bed and in no acute distress. HEENT--PERRL, EOMI, mucous membranes and oropharynx mildly dry. Neck--visual inspection normal. Heart--normal S1 and S2. No murmurs, rubs or gallops. Lungs--clear bilaterally, no respiratory distress, no accessory muscle use. Abdomen--normal bowel sounds and soft. Nontender. Nondistended, no hernias or masses, no organomegaly. Extremities--no cyanosis or clubbing. No edema. There are good distal pulses b/l. Dermatologic--normal skin turgor, normal color, no abnormal lymph nodes, no rash. Neurologic--cranial nerves II through XII grossly intact. Resting tremor noted t hat worsens with arm extension Psychiatric--anxious affect. Results & Data Results & Data Vital Signs (Past 12 Hours) Vital Signs Temp Pulse Resp BP Pulse Ox O2 Del Method 07/20/23 11:00 36.8 C 76 17 144/85 H 95 Room Air 07/20/23 07:40 36.9 C 80 18 134/92 96 Room Air 07/20/23 04:36 36.9 C 79 18 136/89 93 Room Air
[2023-07-20] MEDS: PRAZOSIN HCL 1 MG CAP PO SCH (21:14)
[2023-07-21] MEDS: IBUPROFEN 200 MG TAB PO ONE (02:56)
[2023-07-21 05:47] LABS: Basophils # (auto) 0.04 K/uL (0.00-0.20); Basophils % (auto) 0.8 %; Eosinophils % (auto) 6.4 %; Hematocrit (blood only) 34.4 % (37.0-47.0); Immature Granulocytes # (auto) 0.02 K/uL (0.01-0.20); Immature Granulocytes % (auto) 0.4 %; Lymphocytes # (auto) 1.65 K/uL (1.20-3.40); Mean Corpuscular Hemoglobin 32.9 pg (25.0-34.0); Mean Corpuscular Hgb Conc 34.9 g/dL (32.0-36.0); Mean Corpuscular Volume 94.2 fL (80.0-100.0); Mean Platelet Volume 10.7 fL (9.4-12.4); Monocytes # (auto) 0.33 K/uL (0.11-0.59); Neutrophils # (auto) 2.38 K/uL (1.40-6.50); Neutrophils % (auto) 50.4 %; Platelet Count 191 K/uL (130-400); RDW Coefficient of Variation 12.6 % (11.5-14.5); RDW Standard Deviation 43.8 fL (36.4-46.3); Red Blood Count 3.65 M/uL (4.20-5.40); White Blood Count 4.72 K/ul (4.8-10.8)
[2023-07-21 06:01] LABS: Albumin Globulin Ratio 1.6 (0.9-2); Albumin Level 3.8 gm/dl (3.4-5.0); Bilirubin,Total 0.6 mg/dl (0.2-1.0); Calcium 8.9 mg/dl (8.6-10.3); Creatinine Clr Calc Pharmacy 120.5 ml/min; Est GFR (African American) 107.6 ml/min; Est GFR (Non-African American) 92.9 ml/min; Globulin 2.4 gm/dl (2.5-4.0); Magnesium 1.5 mg/dl (1.7-2.4); Potassium 3.8 mmol/L (3.5-5.1); Total Protein 6.2 gm/dl (6.0-8.3)
[2023-07-21] MEDS: GABAPENTIN 600 MG TAB PO SCH (06:06)
[2023-07-21] MEDS: chlordiazePOXIDE HCl 25 MG CAP PO SCH (06:06)
--- NOTE | 2023-07-21 07:06 | Hospitalist Progress Note ---
"Date of Service July 21, 2023 Assessment & Plan (1) Seizure-like activity: Plan: Patient is a 38-year-old female with a history of alcohol use disorder who presents to the hospital for alcohol withdrawal. She has been started on a Librium taper and has been put on JAMES as protocol with as needed Ativan for withdrawal symptoms. Gabapentin has also been started. Patient is currently hemodynamically stable, but experienced hallucinations overnight (resolved by Ativan). Patient currently admitted under the hospitalist service for monitoring and treatment of withdrawal symptoms. Seizure Like Activity | Alcohol Withdrawal -Suspect secondary to alcohol withdrawal -No seizure-like activity since admission 07/18/2023 -Continue tele -Librium taper ongoing from admission -Continue AWSS protocol w/ PRN Ativan Now with visual, auditory, and tactile hallucinations overnight, resolved with Ativan -Thiamine and folate daily -Maintenance LR at 125 cc/h -Zofran as needed -Seizure precautions ongoing -Continue PPI daily -Patient not yet stable for discharge given ongoing tremors, clonus, and hallucinations overnight. (2) History of seizure due to alcohol withdrawal: Plan: As above (3) Alcohol abuse: Plan: - 20th admission to the hospital service since 08/27/2020 - Recalls that this bout of alcohol use was due to a PTSD induced nightmares - Patient receives Vivitrol once monthly and is due on 07/24/2023, appointment already scheduled - Patient s/p inpatient treatment x 2 (4) Anxiety with depression: Plan: - Continue increase Duloxetine 60 mg PO BID - Continue Prazosin for nightmare prophylaxis, increased to 4 mg from her previous 3 mg dose - Otherwise buspirone, hydroxyzine, and mirtazapine on hold due to high benzodiazepine use while inpatient (5) B12 deficiency: Plan: - Thiamine IV as above (6) Hepatic steatosis: Plan: - Noted (7) GERD (gastroesophageal reflux disease): Plan: - PPI use as above Plan Disposition: Keep in PCU on Librium taper and JAMES as protocol DVT prophylaxis: Low risk Diet: Heart healthy CODE STATUS: Full code Admission and Anticipated Discharge Date Admission Date: July 19, 2023 Supervising Physician Co-Signing Physician Notes I personally examined the patient and verified all méndez points of history and exam, discussed case, and agree with decision making with Dr Garcia feeling better but had hallucinations last night. agrees staying until they have clearly passed is safer. seeing psychiatry and good therapist (at least weekly for therapy), wants to get back to exercising vitals noted nad maybe mildly tremulous nad breathing unlabored no accessory muscles good effort neuro no focal deficits Seizure-like activity, secondary to withdrawal PTSD History of alcohol abuse follow into tomorrow continue withdrawal management appears probably to be getting better but definitely seems risky to send home until further removed from withdrawal symptoms otherwise as above Subjective 07/20: Patient resting comfortably in bed upon arrival. Patient and nursing note visual, auditory, and tactile hallucinations overnight. Patient notes that her anxiety is increased in a/w overnight hallucinations. She has not experienced hallucination this morning. She denies headaches, chest pain, dyspnea, or abdom inal pain. She has ongoing nausea resolved with Zofran. Patient notes good social support from her parents, whom she lives with. She recently connected with a new therapist in the last 2 weeks and she is optimistic. She is open to ongoing use of Prazosin to help with nightmares. Physical Exam Physical Exam: Gen: Anxious, NAD, pleasant. HEENT: PERRL, EOMI, mucous membranes and oropharynx mildly dry. Heart: Tachycardic, normal S1 and S2. No murmurs, rubs or gallops. Lungs: clear bilaterally, no respiratory distress, no accessory muscle use. Abdomen: normal bowel sounds and soft. Nontender. Nondistended, no hernias or masses, no organomegaly. Extremities: no cyanosis or clubbing. No edema. There are good distal pulses b/l. Dermatologic: normal skin turgor, normal color, no abnormal lymph nodes, no rash. Neurologic: AO x 3, CN II-XII grossly intact. Resting tremor in BL UE, clonus in bilateral LE. Psychiatric: Anxious affect Results & Data Results & Data Vital Signs (Past 12 Hours) Vital Signs Temp Pulse Pulse Resp BP Pulse Ox O2 Del Method 07/21/23 03:20 36.7 C 105 H 18 124/88 96 Room Air 07/21/23 01:54 36.8 C 95 H 18 111/80 97 Room Air 07/21/23 00:00 86 07/20/23 23:00 36.8 C 88 17 108/71 95 Room Air Resident Activity Tracking Resident Involvement: Resident Care Provided Care Provided: Adult [facility] Medicine"
[2023-07-21] MEDS: MAGNESIUM SULFATE / D5W 1 GM/100 ML BAG IV SCH (07:20)
[2023-07-21] MEDS: LORazepam 2 MG in SYRINGE 1 ML IV PRN (07:46)
[2023-07-21] MEDS: PNEUMOCOCCAL VACCINE (PCV20) 20-VAL CONJ-DIP CRM/PF 0.5 ML SYR IM ONE (08:31)
--- NOTE | 2023-07-21 16:12 | Billing Data ---
Date of Service July 21, 2023 Coding Level of Care Code 19300 SUB INP/OBS CARE
[2023-07-22] MEDS: GABAPENTIN 600 MG TAB PO SCH (06:16)
--- NOTE | 2023-07-22 06:45 | Hospitalist Progress Note ---
"Date of Service July 22, 2023 Assessment & Plan (1) Seizure-like activity: Plan: Patient is a 38-year-old female with a history of alcohol use disorder who presents to the hospital for alcohol withdrawal. She has been started on a Librium taper and has been put on JAMES as protocol with as needed Ativan for withdrawal symptoms. Gabapentin has also been started. Patient is currently hemodynamically stable, but experienced hallucinations overnight (resolved by Ativan). Patient currently admitted under the hospitalist service for monitoring and treatment of withdrawal symptoms. Seizure Like Activity | Alcohol Withdrawal -Suspect secondary to alcohol withdrawal -No seizure-like activity since admission 07/18/2023 -Continue tele -Librium taper ongoing from admission -Continue AWSS protocol w/ PRN Ativan Now with visual, auditory, and tactile hallucinations overnight, resolved with Ativan -Thiamine and folate daily -Maintenance LR at 125 cc/h -Zofran as needed -Seizure precautions ongoing -Continue PPI daily -Patient not yet stable for discharge given ongoing tremors, clonus, and hallucinations overnight. (2) History of seizure due to alcohol withdrawal: Plan: As above (3) Alcohol abuse: Plan: - 20th admission to the hospital service since 08/27/2020 - Recalls that this bout of alcohol use was due to a PTSD induced nightmares - Patient receives Vivitrol once monthly and is due on 07/24/2023, appointment already scheduled - Patient s/p inpatient treatment x 2 (4) Anxiety with depression: Plan: - Continue increase Duloxetine 60 mg PO BID - Continue Prazosin for nightmare prophylaxis, increased to 4 mg from her previous 3 mg dose - Otherwise buspirone, hydroxyzine, and mirtazapine on hold due to high benzodiazepine use while inpatient (5) B12 deficiency: Plan: - Thiamine IV as above (6) Hepatic steatosis: Plan: - Noted (7) GERD (gastroesophageal reflux disease): Plan: - PPI use as above Plan Disposition: Keep in PCU on Librium taper and JAMES as protocol DVT prophylaxis: Low risk Diet: Heart healthy CODE STATUS: Full code Admission and Anticipated Discharge Date Admission Date: July 19, 2023 Subjective 07/20: Patient resting comfortably in bed upon arrival. Patient and nursing note visual, auditory, and tactile hallucinations overnight. Patient notes that her anxiety is increased in a/w overnight hallucinations. She has not experienced hallucination this morning. She denies headaches, chest pain, dyspnea, or abdominal pain. She has ongoing nausea resolved with Zofran. Patient notes good social support from her parents, whom she lives with. She recently connected with a new therapist in the last 2 weeks and she is optimistic. She is open to ongoing use of Prazosin to help with nightmares. 07/21: Nursing noting multiple attempts to leave with concern for hallucinations overnight. Physical Exam Physical Exam: Gen: Anxious, NAD, pleasant. HEENT: PERRL, EOMI, mucous membranes and oropharynx mildly dry. Heart: Tachycardic, normal S1 and S2. No murmurs, rubs or gallops. Lungs: clear bilaterally, no respiratory distress, no accessory muscle use. Abdomen: normal bowel sounds and soft. Nontender. Nondistended, no hernias or masses, no organomegaly. Extremities: no cyanosis or clubbing. No edema. There are good distal pulses b/l. Dermatologic: normal skin turgor, normal color, no abnormal lymph nodes, no rash. Neurologic: AO x 3, CN II-XII grossly intact. Resting tremor in BL UE, clonus in bilateral LE. Psychiatric: Anxious affect Results & Data Results & Data Vital Signs (Past 12 Hours) Vital Signs Temp Pulse Pulse Resp BP Pulse Ox O2 Del Method 07/22/23 02:34 36.5 C 77 18 107/66 95 Room Air 07/22/23 00:00 98 H 07/21/23 23:00 36.9 C 70 18 136/79 95 Room Air Resident Activity Tracking Resident Involvement: Resident Care Provided Care Provided: Adult Hospital Medicine"
[2023-07-22 07:59] LABS: Albumin Globulin Ratio 1.5 (0.9-2); Albumin Level 4.1 gm/dl (3.4-5.0); BUN Creatinine Ratio 7.9 (10-20); Bilirubin,Total 0.6 mg/dl (0.2-1.0); Calcium 9.5 mg/dl (8.6-10.3); Creatinine Clr Calc Pharmacy 124.6 ml/min; Est GFR (African American) 114.5 ml/min; Est GFR (Non-African American) 98.8 ml/min; Globulin 2.7 gm/dl (2.5-4.0); Magnesium 1.7 mg/dl (1.7-2.4); Total Protein 6.8 gm/dl (6.0-8.3)
[2023-07-22] MEDS: LINACLOTIDE 145 MCG CAPSULE PO SCH (12:33)
[2023-07-22] MEDS: busPIRone 5 MG TAB PO SCH (12:33)
--- NOTE | 2023-07-22 17:33 | Hospitalist Progress Note ---
Date of Service July 22, 2023 Assessment & Plan (1) Seizure-like activity: Plan: Patient is a 38-year-old female with a history of alcohol use disorder who presents to the hospital for alcohol withdrawal. She has been started on a Librium taper and has been put on JAMES as protocol with as needed Ativan for withdrawal symptoms. Gabapentin has also been started. Patient is currently hemodynamically stable, but experienced hallucinations overnight (resolved by Ativan). Patient currently admitted under the hospitalist service for monitoring and treatment of withdrawal symptoms. Seizure Like Activity | Alcohol Withdrawal -Overall improved, but discussed with patient that it is very hard to discern PTSD/vivid dreams from alcoholic hallucinosis at this point being fairly early since her last drink. Discussed that over another 24 hours, as long as she continues to not show significant "classic withdrawal" signs or symptoms, even if she has another bad night we would be able to be more confident/comfortable that she would be safe at home, but with her father not really being able to be her "safety net" we all agreed after careful and lengthy discussion that it was better to observe for another 24 hours in case this was alcohol withdrawal/alcoholic hallucinosis. (2) History of seizure due to alcohol withdrawal: Plan: As above, no further seizures (3) Alcohol abuse: Plan: - "Self-medicating" for PTSD and anxiety. Reiterated other coping skills, un derscored the importance of going to counseling and seeing her psychiatrist (she is now pleased with both of her providers for this), is getting set up for [facility] as an outpatient. (4) Anxiety with depression: Plan: - Continue home meds, rediscussed/addressed other coping skills. (5) Hepatic steatosis: Plan: - Noted, discussed alcohol cessation (6) GERD (gastroesophageal reflux disease): Plan: - PPI use as above Plan Disposition: Hopefully home tomorrow DVT prophylaxis: Low risk Diet: Heart healthy CODE STATUS: Full code Admission and Anticipated Discharge Date Admission Date: July 19, 2023 Subjective feeling ok now but again a rough night - thought maybe very lucid dreams and wondered if it was because she felt trapped, but also hard to really be clear that that was the case and not any degree of hallucinations. Dad present at the bedside. Patient very much wants to go home. We discussed that it is very hard at this point given that she still so close to her last drink to really be able to tease apart alcoholic hallucinosis from PTSD and vivid dreamsthat if he felt that he could be responsible for her nonstop, we could feel reasonably safe about discharging her with his supervision, but he noted some significant reticence about this. In the end, patient opted to stay another day Review of Systems Review of Systems: All systems reviewed & are unremarkable except as noted in HPI & below Physical Exam Physical Exam: In general she is awake and alert pleasant no distress. HEENT normocephalic atraumatic mucous membranes moist. Breathing unlabored no accessory muscle use good effort. Skin without rashes pallor or icterus. Neuro without focal deficits. Not tremulous not tachycardic, and appears coherent at the time of my interview and exam. PG Care Time/CCT Total # of Minutes Spent Total Time Spent with Patient: Total time spent is greater than 50% in coordination of care (as documented) at patient's floor/unit and/or counseling patient: Coding Level of Care Code 72412 SUB INP/OBS CARE 3/50MIN Diagnoses Seizure-like activity R56.9 History of seizure due to alcohol withdrawal Z87.898; Z86.59 Alcohol abuse F10.10 Anxiety with depression F41.8 Hepatic steatosis K76.0 GERD (gastroesophageal reflux disease) K21.9
[2023-07-22] MEDS: LACTATED RINGER'S 1,000 ML IV SCH (18:17)
[2023-07-22] MEDS: PRAZOSIN HCL 1 MG CAP PO SCH (20:52)
[2023-07-22] MEDS: MIRTAZAPINE TAB 15 MG TAB PO SCH (20:52)
[2023-07-22] MEDS ORDERED: hydrOXYzine HCl 25 MG TAB PO PRN (22:34)
--- NOTE | 2023-07-23 06:54 | Hospitalist Progress Note ---
"Date of Service July 23, 2023 Assessment & Plan (1) Seizure-like activity: (2) History of seizure due to alcohol withdrawal: (3) Alcohol abuse: (4) Anxiety with depression: (5) B12 deficiency: (6) Hepatic steatosis: (7) GERD (gastroesophageal reflux disease): Plan Patient is a 38-year-old female with a history of alcohol use disorder who presents to the hospital for alcohol withdrawal. She has been started on a Librium taper and has been put on JAMES as protocol with as needed Ativan for withdrawal symptoms. Gabapentin has also been started. Patient is currently hemodynamically stable, but experienced hallucinations overnight (resolved by Ativan). Patient currently admitted under the hospitalist service for monitoring and treatment of withdrawal symptoms. Seizure Like Activity | Alcohol Withdrawal -Suspect secondary to alcohol withdrawal -No seizure-like activity since admission 07/18/2023 -Continue tele -Librium taper ongoing from admission -Continue AWSS protocol w/ PRN Ativan Now with visual, auditory, and tactile hallucinations overnight, resolved with Ativan -Thiamine and folate daily -Maintenance LR at 125 cc/h -Zofran as needed -Seizure precautions ongoing -Continue PPI daily -Patient not yet stable for discharge given ongoing tremors, clonus, and hallucinations overnight. (2) History of seizure due to alcohol withdrawal: Plan: As above (3) Alcohol abuse: Plan: - 20th admission to the hospital service since 08/27/2020 - Recalls that this bout of alcohol use was due to a PTSD induced nightmares - Patient receives Vivitrol once monthly and is due on 07/24/2023, appointment already scheduled - Patient s/p inpatient treatment x 2 (4) Anxiety with depression: Plan: - Continue increase Duloxetine 60 mg PO BID - Continue Prazosin for nightmare prophylaxis, increased to 4 mg from her previous 3 mg dose - Otherwise buspirone, hydroxyzine, and mirtazapine on hold due to high benzodiazepine use while inpatient (5) B12 deficiency: Plan: - Thiamine IV as above (6) Hepatic steatosis: Plan: - Noted (7) GERD (gastroesophageal reflux disease): Plan: - PPI use as above Plan Disposition: Keep in PCU on Librium taper and JAMES as protocol DVT prophylaxis: Low risk Diet: Heart healthy CODE STATUS: Full code Admission and Anticipated Discharge Date Admission Date: July 19, 2023 Subjective 07/23/23: Physical Exam Physical Exam: Gen: Anxious, NAD, pleasant. HEENT: PERRL, EOMI, mucous membranes and oropharynx mildly dry. Heart: Tachycardic, normal S1 and S2. No murmurs, rubs or gallops. Lungs: clear bilaterally, no respiratory distress, no accessory muscle use. Abdomen: normal bowel sounds and soft. Nontender. Nondistended, no hernias or masses, no organomegaly. Extremities: no cyanosis or clubbing. No edema. There are good distal pulses b/l. Dermatologic: normal skin turgor, normal color, no abnormal lymph nodes, no rash. Neurologic: AO x 3, CN II-XII grossly intact. Resting tremor in BL UE, clonus in bilateral LE. Psychiatric: Anxious affect Results & Data Results & Data Vital Signs (Past 12 Hours) Vital Signs Temp Pulse Pulse Resp BP Pulse Ox O2 Del Method 07/23/23 00:00 87 07/22/23 22:58 36.6 C 71 18 108/72 96 Room Air 07/22/23 19:15 36.6 C 68 18 117/71 99 Room Air"
--- NOTE | 2023-07-23 10:06 | Discharge Summary ---
Date of Service July 23, 2023 Admission HPI Per Admitting Provider The patient is a 38-year-old female with past medical history including alcoholism, alcohol withdrawal seizures, abnormal LFTs, GERD, reflux gastritis, anxiety depression, B12 deficiency, reflux esophagitis and hepatic steatosis. She was noted to have several episodes of seizure-like activity in the outpatient setting, and was brought into the emergency department by her father, reported increased use of vodka over the past several weeks. Workup in the emergency department revealed and normal CT scan of head, normal COVID-19, chemistry panel was normal except for AST of 57, and alcohol level was 348.8. From the ED the patient received the following: Banana bag, lorazepam 2 mg IV, normal saline 1 L, Valium 10 mg IV and Zofran 4 mg IV. Patient did not have any seizure-like activity while in the emergency department Admission Exam Per Admitting Provider The patient is awake, alert and oriented 3, well developed and well nourished, normocephalic and atraumatic, lying in bed and in no acute distress. HEENT--PERRL, EOMI, mucous membranes and oropharynx mildly dry. Neck--supple. No JVD. No bruits. Thyroid normal, trachea midline, no adenopathy. Heart--normal S1 and S2. No murmurs, rubs or gallops. Lungs--clear bilaterally, no respiratory distress, no accessory muscle use. Abdomen--normal bowel sounds and soft. Nontender. Nondistended, no hernias or masses, no organomegaly. Extremities--no cyanosis or clubbing. No edema. There are good distal pulses b/l. Dermatologic--normal skin turgor, normal color, no abnormal lymph nodes, no rash. Neurologic--cranial nerves II through XII grossly intact. Rheumatologic--normal range of motion. Psychiatric--normal affect. Principal Diagnosis Alcohol Withdrawal Discharge Exam Gen: Anxious, NAD, pleasant. HEENT: PERRL, EOMI, mucous membranes and oropharynx mildly dry. Heart: RRR. No murmurs, rubs or gallops. Lungs: clear bilaterally, no respiratory distress, no accessory muscle use. Abdomen: normal bowel sounds and soft. Nontender. Nondistended, no hernias or masses, no organomegaly. Extremities: no cyanosis or clubbing. No edema. There are good distal pulses b/l. Dermatologic: normal skin turgor, normal color, no abnormal lymph nodes, no rash. Neurologic: AO x 3, CN II-XII grossly intact. Resting tremor in BL UE (resolved), clonus in bilateral LE (resolved) Psychiatric: Anxious affect Discharge Data Allergies Allergy/AdvReac Type Severity Reaction Status Date / Time lactose AdvReac Intermediate GI DISTRESS Verified 07/19/23 00:18 Consultations 07/19/23 00:58 ED Decision to Admit Stat 07/20/23 13:16 Consult Behavioral Health Liaison Routine Ordered Studies 07/18/23 23:13 CT head/brain wo con Stat Hospital Course (1) Seizure-like activity: (2) History of seizure due to alcohol withdrawal: (3) Alcohol abuse: (4) Anxiety with depression: (5) B12 deficiency: (6) Hepatic steatosis: (7) GERD (gastroesophageal reflux disease): Plan Patient is a 38-year-old female with a history of alcohol use disorder who presents to the hospital for alcohol withdrawal. She has been started on a Librium taper and has been put on JAMES as protocol with as needed Ativan for withdrawal symptoms. Seizure Like Activity | Alcohol Withdrawal - Patient continues to have PTSD/Vivid dreams overnight, declined medications overnight due to anxiety about receiving too much medication. Given that she is now further out from last drink, less likely that her overnight events are caused by alcohol withdrawal. Father was at bedside this morning. Clonus and tremors on examination have resolved. Hemodynamically stable. Stable for discharge with ongoing outpatient care and titration of medications for PTSD/vivid dreams. History of seizure due to alcohol withdrawal: - As above, no further seizures Alcohol abuse: - "Self-medicating" for PTSD and anxiety. Reiterated other coping skills, underscored the importance of going to counseling and seeing her psychiatrist (she is now pleased with both of her providers for this), is getting set up for [facility] as an outpatient. Anxiety with depression: - Continue home meds, rediscussed/addressed other coping skills. Hepatic steatosis: - Noted, discussed alcohol cessation GERD (gastroesophageal reflux disease): - PPI use as above Plan Disposition: Home today, follow up w/ PCP/Psychiatrist DVT prophylaxis: Low risk Diet: Heart healthy CODE STATUS: Full code Total Time Total Time Spent Total Time Spent (In Minutes): <30 Discharge Plan Discharge Items Patient Disposition: Home - Self-Care Reason For Visit: ALCOHOL WITHDRAWAL SEIZURES Discharge Diagnosis: alcohol withdrawal seizures, hallucinations Activity: Resume your previous activity Non-emergency contact: Primary Care Provider Call non-emergency contact if: you have any medication questions and your symptoms worsen Follow-up/Referrals: PCP,NO [Primary Care Provider] - Diet: Regular Addtl Attending Provider Instructions: given that you were still hallucinating some overnight, it is against advice that you leave today - it really appears you're still in a degree of withdrawal. while it's not likely to worsen, it certainly still can - and when people have alcohol withdrawal hallucinations things can certainly get dangerous quickly. since your parents are willing to look after you, and you strongly desire to leave the hospital, i certainly cannot keep you here, but would strongly recommend that you not be alone (day or night) until you've gone at least 24 hours without any withdrawal symptoms or hallucinations. if things worsen or you/your parents realize that this was a mistake, we'll gladly take you back to keep taking care of you. Pending Studies at Discharge: No Stand-Alone Forms: My [facility], Smoking Cessation Medications and DC Order Prescriptions: New thiamine HCl (vitamin B1) [Vitamin B-1] 100 mg tablet 200 mg PO DAILY Qty: 60 0RF chlordiazepoxide HCl 10 mg capsule 10 mg PO BID Qty: 9 0RF Rx Instructions: 1 po bid x 3 days then 1 po daily x 3 days Continued duloxetine 60 mg capsule,delayed release(DR/EC) 60 mg PO QAM Rx Instructions: TOTAL DOSE 90 MG--TAKES WITH 30 MG CAP. propranolol 10 mg tablet 10 mg PO BID Qty: 30 6RF mirtazapine 15 mg tablet 15 mg PO HS Linzess 145 mcg capsule 145 mcg PO DAILY gabapentin 300 mg capsule 300 mg PO TID hydroxyzine pamoate 50 mg capsule 50 mg PO Q6 PRN (Reason: Anxiety) potassium chloride 40 mEq/15 mL liquid 40 meq PO DAILY buspirone 10 mg Tablet 10 mg PO TID PNV [id number]-ferrous fumarate-FA [] 28 mg iron- 800 mcg Tablet 1 tab PO DAILY duloxetine 30 mg Capsule, Delayed Rel Sprinkle 30 mg PO DAILY Rx Instructions: TOTAL DOSE 90 MG--TAKES WITH 60 MG CAP. folic acid 1 mg tablet 1 mg PO DAILY prazosin 1 mg capsule 3 mg PO HS chlordiazepoxide HCl 10 mg capsule 10 mg PO Q6H PRN (Reason: PANIC ATTACKS) Discharge Orders: Discharge Order (Routine); Ordered 07/23/23 Ordered By: Danilo Garcia Admission Data Admit Date/Time: 07/19/23 01:47 Attending Provider: Issa Ma Admit Provider: Nicolas Lao Primary Care Provider: PCP,MARQUITA Other Providers: Nicolas Lao Other Interventions: Discharge Summary Assessment (RN) Last Done: 07/23/23 10:08 Supervising Physician Co-Signing Physician Notes I personally examined the patient and verified all méndez points of history and exam, discussed case, and agree with decision making with Dr Garcia feels better feels up to going home vitals noted nad maybe mildly tremulous nad breathing unlabored no accessory m uscles good effort neuro no focal deficits Seizure-like activity, secondary to withdrawal PTSD History of alcohol abuse safe/stable for home otherwise as above Resident Activity Tracking Resident Involvement: Resident Care Provided Care Provided: Adult Hospital Medicine
--- NOTE | 2023-07-23 16:37 | Billing Data ---
Date of Service July 23, 2023 Coding Level of Care Code 17459 IN/OBS DISCH 30 MIN/LESS
== END 2023-07-23 10:29 | disposition home or self-care (01) | DRG 897 ==
LOC: ED 22:49 → SUATTDRO 07-19 01:47 → 1E 07-19 01:47 → 2E 07-20

== ENCOUNTER 2023-08-18 13:32 | Inpatient (IN) ==
--- NOTE | 2023-08-18 13:56 | Emergency Department Note ---
History of Present Illness General Chief complaint: Alcohol Intoxication Stated complaint: ALCOHOL WITHDRAWAL, PALIPATIONS, SWEATING Time Seen by Provider: 08/18/23 13:39 Source: patient, RN notes reviewed and old records reviewed (Discharge summary from 07-23-2023) Mode of arrival: ambulatory Limitations: no limitations History of Present Illness Maximum Pain Intensity: 10 This patient is a 38-year-old female comes in complaint of alcohol withdrawal. She has a history of alcohol use/abuse she has been seen here multiple times she tells me she [facility] but checked herself out. She tells me she was [facility] last night did not like the way she was treated. She last drank just before coming here she had nausea and vomiting this morning. She feels a little shaky. No fall or trauma. No abdominal pain at present. Unsure if she is . Home Medications Medication Instructions Recorded Confirmed Type mirtazapine 15 mg tablet 15 mg PO HS 01/15/22 07/19/23 History linaclotide 145 mcg capsule 145 mcg PO DAILY 04/21/22 07/19/23 History (Linzess) duloxetine 60 mg capsule,delayed 60 mg PO QAM 04/29/22 07/19/23 History release gabapentin 300 mg capsule 300 mg PO TID 05/23/22 07/19/23 History hydroxyzine pamoate 50 mg capsule 50 mg PO Q6 PRN Anxiety 09/08/22 07/19/23 History folic acid 1 mg tablet 1 mg PO DAILY 10/16/22 07/19/23 History propranolol 10 mg tablet 10 mg PO BID #30 tabs 11/11/22 07/19/23 Rx prazosin 1 mg capsule 3 mg PO HS 03/14/23 07/19/23 History buspirone 10 mg tablet 10 mg PO TID 04/29/23 07/19/23 History duloxetine 30 mg capsule,delayed 30 mg PO DAILY 04/29/23 07/19/23 History release sprinkle potassium chloride 40 mEq/15 mL 40 meq PO DAILY 04/29/23 07/19/23 History oral liquid vit no.95-ferrous 1 tab PO DAILY 04/29/23 07/19/23 History fumarate 28 mg-folic acid 800 mcg tablet () chlordiazepoxide HCl 10 mg capsule 10 mg PO Q6H PRN PANIC ATTACKS 07/19/23 07/19/23 History chlordiazepoxide HCl 10 mg capsule 10 mg PO BID #9 caps 07/22/23 Rx thiamine HCl (vitamin B1) 100 mg 200 mg (2 x 100 mg) PO DAILY #60 07/22/23 Rx tablet (Vitamin B-1) tabs Allergies Allergy/AdvReac Type Severity Reaction Status Date / Time lactose AdvReac Intermediate GI DISTRESS Verified 07/19/23 00:18 Past Med/Surg History Problem List (Updated 08/18/23 @ 18:16 by Long Jimenez MD) Alcohol withdrawal (Acute) Seizure-like activity (Acute) Vomiting (Acute) Elevated liver transaminase level Hypokalemia History of seizure due to alcohol withdrawal (Acute) Elevated liver enzymes (Acute) Vomiting (Acute) Alcohol abuse (Acute) Hypomagnesemia (Acute) Alcohol withdrawal (Acute) Hypomagnesemia (Acute) Alcohol use disorder (Acute) Fall (Acute) GERD (gastroesophageal reflux disease) (Acute) Reflux gastritis Anxiety with depression B12 deficiency Depression (Acute) Reflux esophagitis Hepatic steatosis Medical History Seizure Hypophosphatemia Irritable bowel syndrome Hyponatremia Leukocytosis Elevated lactic acid level Alcoholic gastritis High anion gap metabolic acidosis Alcoholic ketoacidosis Alcohol withdrawal Alcoholic intoxication Sciatica Transaminitis Alcoholism Chest pain at rest History of intussusception Thrombocytopenia Tension headache Breast lump on left side at 11 o'clock position Hypomagnesemia Miscarriage PTSD (post-traumatic stress disorder) Pancreatitis Surgical History S/P dilation and curettage H/O foot surgery Previous section Family History Mother Depression Anxiety Brother Depression Anxiety Denies family history of Ovarian cancer Prostate cancer Diabetes Myocardial infarction Breast cancer Colorectal cancer Hypertension Social History Smoking Status: Never smoker Second Hand Exposure: No; Do You Dip or Chew Tobacco: No; Hx Alcohol Use: Yes Alcohol type: hard liquor Hx Substance Use: No Preferred Language: Latvian Communication Ability: Effective Visual Impairment: No Limitations Hearing Ability: Normal Sole Polisher Required: No Beliefs That Will Affect Care: None marital status: Current Living Situation: Family Current Living Situation Comment: mom, dad, son 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[employer] How many Children do You have: 1 Feels Safe at Home: Yes Childhood Exposure to Second-Hand Smoke: No Diet: regular Dental Care, Regularly: Yes Physical Activity Frequency: 5-6 Times per Week Seatbelt Use: always Sunscreen Use: Yes Assistive Devices: None Review of Systems A total of 10 systems reviewed and were otherwise negative Physical Exam Vital Signs Vital Signs - 24 hr 08/18/23 13:41 08/18/23 14:14 08/18/23 14:20 Temperature 36.7 C Temperature Source Oral Pulse Rate 131 H 109 H 111 H Pulse Rate [Apical] Pulse Rate from SpO2 Sensor 109 H Respiratory Rate 20 21 Respiratory Effort / Characteristics Non-Labored Respiratory Depth Normal Blood Pressure 159/113 H Blood Pressure [Left Arm] Blood Pressure Mean 128 Blood Pressure Mean [Left Arm] Blood Pressure Position Sitting Pulse Oximetry 93 96 Oxygen Delivery Method Room Air Sepsis Recent Fever Within 48 Hours No Sepsis New/Unexplained Change in Mental Status N/A Sepsis Action Taken by Nursing No Action Required 08/18/23 14:20 08/18/23 14:24 08/18/23 14:25 Temperature Temperature Source Pulse Rate 112 H Pulse Rate [Apical] Pulse Rate from SpO2 Sensor 111 H Respiratory Rate 22 Respiratory Effort / Characteristics Respiratory Depth Blood Pressure Blood Pressure [Left Arm] Blood Pressure Mean Blood Pressure Mean [Left Arm] Blood Pressure Position Pulse Oximetry 94 94 94 Oxygen Delivery Method Room Air Room Air Sepsis Recent Fever Within 48 Hours Sepsis New/Unexplained Change in Mental Status Sepsis Action Taken by Nursing 08/18/23 14:30 08/18/23 14:30 08/18/23 14:40 Temperature Temperature Source Pulse Rate 115 H 120 H Pulse Rate [Apical] Pulse Rate from SpO2 Sensor 115 H 120 H Respiratory Rate 23 22 Respiratory Effort / Characteristics Respiratory Depth Blood Pressure 134/92 Blood Pressure [Left Arm] Blood Pressure Mean 109 Blood Pressure Mean [Left Arm] Blood Pressure Position Pulse Oximetry 96 93 Oxygen Delivery Method Sepsis Recent Fever Within 48 Hours Sepsis New/Unexplained Change in Mental Status Sepsis Action Taken by Nursing 08/18/23 14:50 08/18/23 14:50 08/18/23 15:00 Temperature Temperature Source Pulse Rate 120 H 109 H Pulse Rate [Apical] Pulse Rate from SpO2 Sensor Respiratory Rate 23 Respiratory Effort / Characteristics Respiratory Depth Blood Pressure 150/98 H Blood Pressure [Left Arm] Blood Pressure Mean 102 Blood Pressure Mean [Left Arm] Blood Pressure Position Pulse Oximetry 97 90 Oxygen Delivery Method Sepsis Recent Fever Within 48 Hours Sepsis New/Unexplained Change in Mental Status Sepsis Action Taken by Nursing 08/18/23 15:00 08/18/23 15:10 08/18/23 15:20 Temperature Temperature Source Pulse Rate 109 H 107 H Pulse Rate [Apical] Pulse Rate from SpO2 Sensor Respiratory Rate 24 22 Respiratory Effort / Characteristics Respiratory Depth Blood Pressure 139/90 Blood Pressure [Left Arm] Blood Pressure Mean 100 Blood Pressure Mean [Left Arm] Blood Pressure Position Pulse Oximetry 92 93 Oxygen Delivery Method Sepsis Recent Fever Within 48 Hours Sepsis New/Unexplained Change in Mental Status Sepsis Action Taken by Nursing 08/18/23 15:30 08/18/23 15:30 08/18/23 15:40 Temperature Temperature Source Pulse Rate 111 H 107 H Pulse Rate [Apical] Pulse Rate from SpO2 Sensor Respiratory Rate 21 18 Respiratory Effort / Characteristics Respiratory Depth Blood Pressure 131/91 Blood Pressure [Left Arm] Blood Pressure Mean 100 Blood Pressure Mean [Left Arm] Blood Pressure Position Pulse Oximetry 92 93 Oxygen Delivery Method Sepsis Recent Fever Within 48 Hours Sepsis New/Unexplained Change in Mental Status Sepsis Action Taken by Nursing 08/18/23 15:50 08/18/23 16:00 08/18/23 16:10 Temperature Temperature Source Pulse Rate 112 H 112 H 107 H Pulse Rate [Apical] Pulse Rate from SpO2 Sensor Respiratory Rate 26 H 26 H 24 Respiratory Effort / Characteristics Respiratory Depth Blood Pressure Blood Pressure [Left Arm] Blood Pressure Mean Blood Pressure Mean [Left Arm] Blood Pressure Position Pulse Oximetry 93 94 93 Oxygen Delivery Method Sepsis Recent Fever Within 48 Hours Sepsis New/Unexplained Change in Mental Status Sepsis Action Taken by Nursing 08/18/23 16:15 08/18/23 16:16 08/18/23 16:16 Temperature Temperature Source Pulse Rate 107 H Pulse Rate [Apical] 107 H Pulse Rate from SpO2 Sensor 107 H Respiratory Rate 18 25 H Respiratory Effort / Characteristics Respiratory Depth Blood Pressure 120/89 Blood Pressure [Left Arm] 120/89 Blood Pressure Mean 97 Blood Pressure Mean [Left Arm] 99 Blood Pressure Position Pulse Oximetry 96 96 Oxygen Delivery Method Room Air Sepsis Recent Fever Within 48 Hours Sepsis New/Unexplained Change in Mental Status Sepsis Action Taken by Nursing 08/18/23 16:20 08/18/23 16:30 08/18/23 16:31 Temperature Temperature Source Pulse Rate 112 H 106 H 106 H Pulse Rate [Apical] Pulse Rate from SpO2 Sensor 112 H 106 H 107 H Respiratory Rate 23 20 27 H Respiratory Effort / Characteristics Respiratory Depth Blood Pressure Blood Pressure [Left Arm] Blood Pressure Mean Blood Pressure Mean [Left Arm] Blood Pressure Position Pulse Oximetry 93 93 92 Oxygen Delivery Method Sepsis Recent Fever Within 48 Hours Sepsis New/Unexplained Change in Mental Status Sepsis Action Taken by Nursing 08/18/23 16:31 08/18/23 16:40 08/18/23 16:50 Temperature Temperature Source Pulse Rate 103 H 101 H Pulse Rate [Apical] Pulse Rate from SpO2 Sensor 103 H 101 H Respiratory Rate 20 Respiratory Effort / Characteristics Respiratory Depth Blood Pressure 125/93 Blood Pressure [Left Arm] Blood Pressure Mean 111 Blood Pressure Mean [Left Arm] Blood Pressure Position Pulse Oximetry 95 97 Oxygen Delivery Method Sepsis Recent Fever Within 48 Hours Sepsis New/Unexplained Change in Mental Status Sepsis Action Taken by Nursing 08/18/23 17:00 08/18/23 17:00 08/18/23 17:10 Temperature Temperature Source Pulse Rate 100 H 110 H Pulse Rate [Apical] Pulse Rate from SpO2 Sensor 100 H 111 H Respiratory Rate 16 Respiratory Effort / Characteristics Respiratory Depth Blood Pressure 127/77 Blood Pressure [Left Arm] Blood Pressure Mean 89 Blood Pressure Mean [Left Arm] Blood Pressure Position Pulse Oximetry 97 95 Oxygen Delivery Method Sepsis Recent Fever Within 48 Hours Sepsis New/Unexplained Change in Mental Status Sepsis Action Taken by Nursing 08/18/23 17:20 08/18/23 17:30 08/18/23 17:40 Temperature Temperature Source Pulse Rate 96 H Pulse Rate [Apical] Pulse Rate from SpO2 Sensor 99 H 97 H Respiratory Rate 19 21 23 Respiratory Effort / Characteristics Respiratory Depth Blood Pressure Blood Pressure [Left Arm] Blood Pressure Mean Blood Pressure Mean [Left Arm] Blood Pressure Position Pulse Oximetry 95 93 90 Oxygen Delivery Method Sepsis Recent Fever Within 48 Hours Sepsis New/Unexplained Change in Mental Status Sepsis Action Taken by Nursing 08/18/23 17:50 08/18/23 18:00 08/18/23 18:10 Temperature Temperature Source Pulse Rate 97 H 97 H 97 H Pulse Rate [Apical] Pulse Rate from SpO2 Sensor 98 H 97 H 97 H Respiratory Rate 21 22 20 Respiratory Effort / Characteristics Respiratory Depth Blood Pressure Blood Pressure [Left Arm] Blood Pressure Mean Blood Pressure Mean [Left Arm] Blood Pressure Position Pulse Oximetry 97 97 97 Oxygen Delivery Method Sepsis Recent Fever Within 48 Hours Sepsis New/Unexplained Change in Mental Status Sepsis Action Taken by Nursing General: Well developed well nourished in no acute distress, breathing comfortably on room air. Normal speech HEENT: Normal cephalic atraumatic. Pupils are equal round and reactive to light. Extraocular movements are intact. Oropharynx is pink with moist mucous membranes. No swelling of the mouth lips or tongue. Neck: Supple with a midline trachea. No meningeal signs or stiffness, no JVD or bruits. No Stridor. Chest: Clear to auscultation bilaterally. No wheezes or rhonchi. No increased work of breathing. Heart: Regular rate and rhythm without murmurs or gallops. Abdomen: Soft nontender, nondistended without rebound guarding or rigidity. Extremities: No cyanosis clubbing or edema. No calf tenderness or assymetry Spine/Back. Non tender to palpation. No CVA tenderness Skin: Good turgor without rashes. Neurologic exam: Cranial nerves two through 12 are intact. Motor and sensation are intact and symmetrical throughout. Course Administered Medications Discontinued Medications Sodium Chloride (Nss) 1,000 mls @ 999 mls/hr IV .Q1H1M STA Stop: 08/18/23 14:46 Last Infusion: 08/18/23 15:12 Dose: Infused Documented By: Admin: 08/18/23 14:07 Dose: 999 mls/hr Documented By: ML Sodium Chloride (Nss) 1,000 mls @ 999 mls/hr IV .Q1H1M ONE Stop: 08/18/23 14:47 Last Infusion: 08/18/23 15:12 Dose: Infused Documented By: Admin: 08/18/23 14:08 Dose: 999 mls/hr Documented By: ML Multivitamins 10 ml/ Thiamine HCl 100 mg/ Folic Acid 1 mg/Sodium Chloride 1,011.2 mls @ 500 mls/hr IV .Q2H2M ONE Stop: 08/18/23 15:55 Last Infusion: 08/18/23 16:26 Dose: Infused Documented By: Admin: 08/18/23 14:24 Dose: 500 mls/hr Documented By: ML Ceftriaxone Sodium (Rocephin) 2,000 mg in 50 mls @ 100 mls/hr IV NOW STA Stop: 08/18/23 16:06 Last Infusion: 08/18/23 16:40 Dose: Infused Documented By: Admin: 08/18/23 16:10 Dose: 100 mls/hr Documented By: ML Lorazepam (Lorazepam 1 Mg/1 Ml Syr Ed Inj Use) 2 mg IV ONE STA Stop: 08/18/23 13:55 Last Admin: 08/18/23 14:08 Dose: 2 mg Documented By: ML Lorazepam (Lorazepam 1 Mg/1 Ml Syr Ed Inj Use) 2 mg IV ONE STA Stop: 08/18/23 14:50 Last Admin: 08/18/23 14:53 Dose: 2 mg Documented By: ML Critical Care Time Critical Care Time: Yes Total Critical Care Time: 30 Due to the patient's tachycardia, concern for alcohol withdrawal, need for frequent reassessment, cardiac monitoring, IV medications and consultation, I have personally spent greater than 30 minutes of critical care time in the direct management of this patient. This includes bedside care, interpretation of diagnostic studies, and testing, discussion with consultants, patient, and family members, and other required patient management activities. This 30 minutes is in excess of all separately billable procedures. Medical Decision Making Differential Diagnosis Alcohol withdrawal, electrolyte or metabolic abnormality, overdose, seizure, infection, , infection Medical Records Attestation: I reviewed the patient's medical records. Home Medications Current Medication List: was personally reviewed by me Laboratory Data Attestation: I reviewed the patient's lab results. 08/18/23 14:13 08/18/23 14:13 Lab Results 08/18/23 08/18/23 08/18/23 Range/Units 13:55 14:13 15:52 WBC 8.84 (4.8-10.8) K/ul RBC 3.85 L (4.20-5.40) M/uL Hgb 12.5 (12.0-16.0) g/dl Hct 35.4 L (37.0-47.0) % MCV 91.9 (80.0-100.0) fL MCH 32.5 (25.0-34.0) pg MCHC 35.3 (32.0-36.0) g/dL RDW Std Deviation 46.5 H (36.4-46.3) fL RDW Coeff of [place] 13.7 (11.5-14.5) % Plt Count 166 (130-400) K/uL MPV 10.6 (9.4-12.4) fL Immature Gran % (Auto) 0.1 % Neut % (Auto) 53.4 % Lymph % (Auto) 35.1 % Island % (Auto) 8.5 % Eos % (Auto) 1.9 % Baso % (Auto) 1.0 % Neut # (Auto) 4.72 (1.40-6.50) K/uL Lymph # (Auto) 3.10 (1.20-3.40) K/uL [place] # (Auto) 0.75 H (0.11-0.59) K/uL Eos # (Auto) 0.17 (0.00-0.50) K/uL Baso # (Auto) 0.09 (0.00-0.20) K/uL Immature Gran # (Auto) 0.01 (0.01-0.20) K/uL PT 10.3 (9.0-12.0) Seconds INR 0.9 (0.9-1.1) APTT 30 (21-31) Seconds PTT Ratio 1.1 Sodium 135 L (136-145) mmol/L Potassium 3.2 L (3.5-5.1) mmol/L Chloride 96 L (98-107) mmol/L Carbon Dioxide 22 (21-32) mmol/L Anion Gap 17 H (3-11) BUN 6 (6-23) mg/dl Creatinine 0.79 (0.6-1.2) mg/dl Est Cr Clr Drug Dosing 120.4 ml/min Est GFR ( Amer) 109.3 ml/min Est GFR (Non-Af Amer) 94.3 ml/min BUN/Creatinine Ratio 7.6 L (10-20) Glucose 101 H (70-99(Fasting)) mg/dl Lactate 3.3 H* (0.4-2.0) mmol/L Calcium 8.7 (8.6-10.3) mg/dl Magnesium 1.6 L (1.7-2.4) mg/dl Total Bilirubin 0.6 (0.2-1.0) mg/dl AST 69 H (13-39) U/L ALT 25 (7-52) U/L Alkaline Phosphatase 65 (34-104) U/L C-Reactive Protein < 0.50 (0-0.5) mg/dl Total Protein 7.8 (6.0-8.3) gm/dl Albumin 4.8 (3.4-5.0) gm/dl Globulin 3.0 (2.5-4.0) gm/dl Albumin/Globulin Ratio 1.6 (0.9-2) Lipase 23 (11-82) U/L Procalcitonin 0.04 (0-0.5) ng/ml Urine Color Urine Appearance (Clear) Urine pH (4.5-7.5) Ur Specific [place] (1.000-1.030) Urine Protein (Negative) Urine Glucose (UA) (Negative) Urine Ketones (Negative) Urine Blood (Negative) Urine Nitrite (Negative) Urine Bilirubin (Negative) Urine Urobilinogen (Negative) Ur Leukocyte Esterase (Negative) Urine WBC (Auto) (0-5) /hpf Urine RBC (Auto) (0-2) /hpf U Hyaline Cast (Auto) (0-2) /lpf U Epithel Cells (Auto) (0-2) /hpf Urine Bacteria (Auto) (None Seen) POC Ur Test NEG (NEG) Salicylates < 3.0 L (3.0-30) mg/dl Urine Opiates Screen (Neg) Ur Methadone, Qual (Neg) Acetaminophen < 3 L (10-30) ug/ml Urine Barbiturates (Neg) Ur Phencyclidine (PCP) (Neg) U Amphetamin/Meth Scrn (Neg) MDMA (Ecstasy) Screen (Neg) U Benzodiazepines Scrn (Neg) Ur Cocaine Metabolite (Neg) U Marijuana (THC) Screen (Neg) Ethyl Alcohol mg/dL 424.4 H (<10.0) mg/dl 08/18/23 08/18/23 Range/Units 17:54 Unknown WBC (4.8-10.8) K/ul RBC (4.20-5.40) M/uL Hgb (12.0-16.0) g/dl Hct (37.0-47.0) % MCV (80.0-100.0) fL MCH (25.0-34.0) pg MCHC (32.0-36.0) g/dL RDW Std Deviation (36.4-46.3) fL RDW Coeff of D[place]in (11.5-14.5) % Plt Count (130-400) K/uL MPV (9.4-12.4) fL Immature Gran % (Auto) % Neut % (Auto) % Lymph % (Auto) % Island % (Auto) % Eos % (Auto) % Baso % (Auto) % Neut # (Auto) (1.40-6.50) K/uL Lymph # (Auto) (1.20-3.40) K/uL [place] # (Auto) (0.11-0.59) K/uL Eos # (Auto) (0.00-0.50) K/uL Baso # (Auto) (0.00-0.20) K/uL Immature Gran # (Auto) (0.01-0.20) K/uL PT (9.0-12.0) Seconds INR (0.9-1.1) APTT (21-31) Seconds PTT Ratio Sodium (136-145) mmol/L Potassium (3.5-5.1) mmol/L Chloride (98-107) mmol/L Carbon Dioxide (21-32) mmol/L Anion Gap (3-11) BUN (6-23) mg/dl Creatinine (0.6-1.2) mg/dl Est Cr Clr Drug Dosing ml/min Est GFR ( Amer) ml/min Est GFR (Non-Af Amer) ml/min BUN/Creatinine Ratio (10-20) Glucose (70-99(Fasting)) mg/dl Lactate 2.8 H* (0.4-2.0) mmol/L Calcium (8.6-10.3) mg/dl Magnesium (1.7-2.4) mg/dl Total Bilirubin (0.2-1.0) mg/dl AST (13-39) U/L ALT (7-52) U/L Alkaline Phosphatase (34-104) U/L C-Reactive Protein (0-0.5) mg/dl Total Protein (6.0-8.3) gm/dl Albumin (3.4-5.0) gm/dl Globulin (2.5-4.0) gm/dl Albumin/Globulin Ratio (0.9-2) Lipase (11-82) U/L Procalcitonin (0-0.5) ng/ml Urine Color Yellow Urine Appearance Cloudy A (Clear) Urine pH 6.0 (4.5-7.5) Ur Specific [place] 1.006 (1.000-1.030) Urine Protein Trace H (Negative) Urine Glucose (UA) Negative (Negative) Urine Ketones Negative (Negative) Urine Blood 1+ H (Negative) Urine Nitrite Negative (Negative) Urine Bilirubin Negative (Negative) Urine Urobilinogen Negative (Negative) Ur Leukocyte Esterase 3+ H (Negative) Urine WBC (Auto) >50 H (0-5) /hpf Urine RBC (Auto) 0-2 (0-2) /hpf U Hyaline Cast (Auto) 0-2 (0-2) /lpf U Epithel Cells (Auto) 0-2 (0-2) /hpf Urine Bacteria (Auto) 4+ H (None Seen) POC Ur Test (NEG) Salicylates (3.0-30) mg/dl Urine Opiates Screen Neg (Neg) Ur Methadone, Qual Neg (Neg) Acetaminophen (10-30) ug/ml Urine Barbiturates Neg (Neg) Ur Phencyclidine (PCP) Neg (Neg) U Amphetamin/Meth Scrn Pos H (Neg) MDMA (Ecstasy) Screen Neg (Neg) U Benzodiazepines Scrn Pos H (Neg) Ur Cocaine Metabolite Neg (Neg) U Marijuana (THC) Screen Neg (Neg) Ethyl Alcohol mg/dL (<10.0) mg/dl Imaging Data Attestation: I personally reviewed and interpreted this imaging study as follows: My Impression: Chest x-rayno acute infiltrate, failure, pneumothorax seen Radiologist's Impression: Chest X-Ray 08/18/23 16:37 XR chest 1V portable HISTORY: shortness of breath COMPARISON: Chest 05/17/2023. FINDINGS: The lungs are clear. Cardiac silhouette is normal in size. No pleural effusions. No pneumothorax. IMPRESSION: No acute process. ACT 112: Negative or not required by law. Electronically signed by: Jone Dupont M.D. 08/18/2023 5:28 PM ECG Data Attestation: I personally reviewed and interpreted this ECG as follows: Indication: + toxicologic Rate (beats per minute): 109 Rhythm: + normal sinus and + other (Poor baseline) ECG Intervals/blocks: + Normal QRS, + Normal QT and + Normal VT ECG [place]: + Normal ECG ST segments: + Nonspecific ST abnormalities ECG Findings: + Other (Nonspecific T wave); no PACs or no PVCs Comparison ECG Date: from (07/18/2023) Change: the following changes noted (Rate is increased additionally there is nonspecific T wave and ST abnormalities) MDM Narrative This patient comes in as scribed above. She presents with alcohol withdrawal. I was concerned given her seizure history that she needed to be seen promptly. I went to see her out in triage. She says she just drank not too long ago . she is a little tachycardic but does not appear to be or overtly shaky but we got her back quickly to room B9 on a medicinal chemist we did have a seizure precautions applied I gave her Ativan 2 mg IV as well as a banana bag given IV as well as IV normal saline multiple labs were obtained. Urine test was negative. Her EKG shows sinus tachycardia at 109. With the Ativan she felt like she was a little bit better but still felt shaky and felt like she was withdrawing. I did give her additional Ativan 2 mg IV. She seemed mildly sleepy with this but was definitely arousable and talking. Her blood alcohol came back significantly elevated at 454. Her urine drug screen did come back positive for methamphetamines although this could potentially be a false positive. She tells me she has not use any other drugs. She has no fever or white count to suggest infection. Her lactic acid was mildly elevated at 3.2 and follow-up lactate shows is trending downward. I do think she needs to be admitted/observed. She is at risk for significant alcohol withdrawal given her pre this history. I discussed the case at length with Dr. Polo, who saw the patient in the ER, and will admit her for these measures Continuous medicinal chemist: Orders were placed in EMR for continuous cardiac monitoring call upon my evaluation patient was noted to be sinus tachycardia with a rate of 110 Impression & Plan Alcohol abuse, Alcohol withdrawal, Vomiting, History of seizure due to alcohol withdrawal Discharge Plan Visit Data Chief Complaint: Alcohol Intoxication Stated Complaint: ALCOHOL WITHDRAWAL, PALIPATIONS, SWEATING ED Provider: Long Jimenez Discharge Problem: Alcohol abuse, Alcohol withdrawal, Vomiting, History of seizure due to alcohol withdrawal Forms Stand Alone Forms: My [facility] Prescriptions Prescriptions: No Action duloxetine 60 mg capsule,delayed release(DR/EC) 60 mg PO QAM Rx Instructions: TOTAL DOSE 90 MG--TAKES WITH 30 MG CAP. propranolol 10 mg tablet 10 mg PO BID Qty: 30 6RF mirtazapine 15 mg tablet 15 mg PO HS Linzess 145 mcg capsule 145 mcg PO DAILY gabapentin 300 mg capsule 300 mg PO TID hydroxyzine pamoate 50 mg capsule 50 mg PO Q6 PRN (Reason: Anxiety) potassium chloride 40 mEq/15 mL liquid 40 meq PO DAILY buspirone 10 mg Tablet 10 mg PO TID PNV [id number] fumarate-FA [] 28 mg iron- 800 mcg Tablet 1 tab PO DAILY duloxetine 30 mg Capsule, Delayed Rel Sprinkle 30 mg PO DAILY Rx Instructions: TOTAL DOSE 90 MG--TAKES WITH 60 MG CAP. folic acid 1 mg tablet 1 mg PO DAILY prazosin 1 mg capsule 3 mg PO HS chlordiazepoxide HCl 10 mg capsule 10 mg PO Q6H PRN (Reason: PANIC ATTACKS) thiamine HCl (vitamin B1) [Vitamin B-1] 100 mg tablet 200 mg PO DAILY Qty: 60 0RF chlordiazepoxide HCl 10 mg capsule 10 mg PO BID Qty: 9 0RF Rx Instructions: 1 po bid x 3 days then 1 po daily x 3 days Referrals Referrals: PCP,NO [Physician] - Discharge Problem: Alcohol withdrawal Qualifiers: Complication of substance-induced condition: uncomplicated Qualified Code(s): F 10.930 - Alcohol use, unspecified with withdrawal, uncomplicated Vomiting Qualifiers: Vomiting type: unspecified Nausea presence: with nausea Qualified Code(s): R 11.2 - Nausea with vomiting, unspecified
[2023-08-18] MEDS: SODIUM CHLORIDE 0.9% 1,000 ML IV STA (14:07)
[2023-08-18] MEDS: SODIUM CHLORIDE 0.9% 1,000 ML IV ONE (14:08)
[2023-08-18] MEDS: LORazepam 1 MG/1 ML SYR ED Inj Use IV STA ×2 (14:08→14:53)
[2023-08-18 14:22] LABS: Appearance Urine Cloudy (Clear); Bacteria Urine Automated 4+ (None Seen); Bilirubin Urine Negative (Negative); Blood Urine 1+ (Negative); Cast Urine Automated 0-2 /lpf (0-2); Color Urine Yellow; Epithelial Cell Urine Auto 0-2 /hpf (0-2); Glucose Urine UA Negative (Negative); Ketones Urine Negative (Negative); Leukocyte Esterase Urine 3+ (Negative); Nitrite Urine Negative (Negative); Protein Urine Trace (Negative); RBC Urine Automated 0-2 /hpf (0-2); Specific Gravity Urine 1.006 (1.000-1.030); Urobilinogen Urine Negative (Negative); WBC Urine Automated >50 /hpf (0-5)
[2023-08-18] MEDS: MULTI-VITAMIN INFUSION 10 ML, THIAMINE HCL 100 MG, FOLIC ACID 1 MG in SODIUM CHLORIDE 0... IV ONE (14:24)
[2023-08-18 14:42] LABS: Basophils # (auto) 0.09 K/uL (0.00-0.20); Eosinophils # (auto) 0.17 K/uL (0.00-0.50); Eosinophils % (auto) 1.9 %; Hematocrit (blood only) 35.4 % (37.0-47.0); Hemoglobin 12.5 g/dl (12.0-16.0); Immature Granulocytes # (auto) 0.01 K/uL (0.01-0.20); Immature Granulocytes % (auto) 0.1 %; Lymphocytes % (auto) 35.1 %; Mean Corpuscular Hemoglobin 32.5 pg (25.0-34.0); Mean Corpuscular Hgb Conc 35.3 g/dL (32.0-36.0); Mean Corpuscular Volume 91.9 fL (80.0-100.0); Mean Platelet Volume 10.6 fL (9.4-12.4); Monocytes # (auto) 0.75 K/uL (0.11-0.59); Monocytes % (auto) 8.5 %; Neutrophils # (auto) 4.72 K/uL (1.40-6.50); Neutrophils % (auto) 53.4 %; Platelet Count 166 K/uL (130-400); RDW Coefficient of Variation 13.7 % (11.5-14.5); RDW Standard Deviation 46.5 fL (36.4-46.3); Red Blood Count 3.85 M/uL (4.20-5.40); White Blood Count 8.84 K/ul (4.8-10.8)
[2023-08-18 14:47] LABS: Acetaminophen < 3 ug/ml (10-30); Salicylate < 3.0 mg/dl (3.0-30)
[2023-08-18 14:53] LABS: Alanine Aminotransferase 25 U/L (7-52); Albumin Globulin Ratio 1.6 (0.9-2); Albumin Level 4.8 gm/dl (3.4-5.0); Alkaline Phosphatase 65 U/L (34-104); Anion Gap 17 (3-11); Aspartate Aminotransferase 69 U/L (13-39); BUN Creatinine Ratio 7.6 (10-20); Bilirubin,Total 0.6 mg/dl (0.2-1.0); Blood Urea Nitrogen 6 mg/dl (6-23); Calcium 8.7 mg/dl (8.6-10.3); Carbon Dioxide 22 mmol/L (21-32); Chloride 96 mmol/L (98-107); Creatinine Clr Calc Pharmacy 120.4 ml/min; Est GFR (African American) 109.3 ml/min; Est GFR (Non-African American) 94.3 ml/min; Glucose 101 mg/dl (70-99(Fasting)); Lipase 23 U/L (11-82); Magnesium 1.6 mg/dl (1.7-2.4); Potassium 3.2 mmol/L (3.5-5.1); Sodium 135 mmol/L (136-145); Total Protein 7.8 gm/dl (6.0-8.3)
[2023-08-18 15:00] LABS: Amphetamines+Metham, Urine Pos (Neg); Barbiturates, Urine Neg (Neg); Benzodiazepine, Urine Pos (Neg); Cocaine, Urine Neg (Neg); MDMA (Ecstacy), Urine Neg (Neg); Marijuana, Urine Neg (Neg); Methadone, Urine Neg (Neg); Opiate, Urine Neg (Neg); Phencyclidine, Urine Neg (Neg)
[2023-08-18 15:09] LABS: INR 0.9 (0.9-1.1); Partial Thromboplastin Ratio 1.1; Partial Thromboplastin Time 30 Seconds (21-31); Prothrombin Time 10.3 Seconds (9.0-12.0)
[2023-08-18 16:08] LABS: C Reactive Protein < 0.50 mg/dl (0-0.5)
[2023-08-18] MEDS: cefTRIAXone SODIUM 2,000 MG/50 ML BAG IV STA (16:10)
--- NOTE | 2023-08-18 16:39 | History & Physical Report ---
Date of Service August 18, 2023 Assessment & Plan (1) Alcoholic intoxication: Plan: Alcohol level 424 on admission. Suspect her agitation may be more methamphetamine induced with such a high alcohol level currently although she historically has alchol withdrawal relatively quickly following her last drink. She is interested in rehabilitation. Will admit for IV phenobarbital, 1st dose when she has a RASS score > 0 Phenobarbital 260mg IV bolus, then 130mg IV q15m PRN for RASS > 0 for 2 hours, then 130mg q6h PRN for RASS > 0 Switch to 3-day PO taper following this (2) Methamphetamine intoxication: Plan: Patient denies use but pupils significantly dilated with positive urine drug screen She is not overly agitated on admission although she was seen after a total of 4mg lorazepam given for "alcohol withdrawal" although doubtful she is withdrawing at this time with an alcohol level of (3) Left lower quadrant abdominal pain: Plan: Mild on exam Reports ongoing and stable since visit to [facility] where she had a CT scan and was diagnosed with ovarian cysts - will request records rather than repeat imaging. (4) UTI (urinary tract infection): Plan: Dysuria Ceftriaxone 2g IV pending urine culture (5) Mydriasis: Plan: Suspect secondary to methamphetamine intoxication as above. Serotonin syndrome not ruled out. (6) Hypomagnesemia: Plan: Replacement ordered, repeat level in AM (7) Anxiety with depression: Plan: Hold BuSpar, duloxetine and mirtazapine given mydriasis difficult to rule out serotonin syndrome, restart once mydriasis improves Plan VTE Prophylaxis - low risk Diet - regular Disposition - admit to PCU Admission and Anticipated Discharge Date Admission Date: August 18, 2023 History of Present Illness Chief Complaint: Agitation, sweating Primary Care Provider: ASHLEY NOEL Radha Ybarra is a 38 year old female who presents to the ER with sweating and tingling. She was most recently discharged on July 22 due to alcohol withdrawal. She reports going back to drinking alcohol right after discharge. She tried to cut back alcohol last week but started having withdrawal symptoms. She tried to go to [facility] last night but [facility] reports due to her ovarian cysts. She reports sitting in the ER for 4 hours last night and was discharged after some lab work. She left around 11:30am and went home and drank a pint of vodka as she felt she was withdrawing around midday which was her last alcohol drink. She was encouraged by her father to come to [facility] for withdrawal treatment to enable her to go to rehabilitation. She notes dysuria which started today. No fever, chills or flank tenderness. Left lower qudrant pain ongoing and stable for last 2 weeks - reports having CTs at [facility] and was diagnosed with ovarian cysts. This has occurred at the same time as vaginal bleeding for this time. Her admission drug screen was positive for methamphetamines with pupils dilated - she denies use but reports being around people who use this. Allergies Allergy/AdvReac Type Severity Reaction Status Date / Time lactose AdvReac Intermediate GI DISTRESS Verified 07/19/23 00:18 Home Medications Medication Instructions Recorded Confirmed Type mirtazapine 15 mg tablet 15 mg PO HS 01/15/22 07/19/23 History linaclotide 145 mcg capsule 145 mcg PO DAILY 04/21/22 07/19/23 History (Linzess) duloxetine 60 mg capsule,delayed 60 mg PO QAM 04/29/22 07/19/23 History release gabapentin 300 mg capsule 300 mg PO TID 05/23/22 07/19/23 History hydroxyzine pamoate 50 mg capsule 50 mg PO Q6 PRN Anxiety 09/08/22 07/19/23 History folic acid 1 mg tablet 1 mg PO DAILY 10/16/22 07/19/23 History propranolol 10 mg tablet 10 mg PO BID #30 tabs 11/11/22 07/19/23 Rx prazosin 1 mg capsule 3 mg PO HS 03/14/23 07/19/23 History buspirone 10 mg tablet 10 mg PO TID 04/29/23 07/19/23 History duloxetine 30 mg capsule,delayed 30 mg PO DAILY 04/29/23 07/19/23 History release sprinkle potassium chloride 40 mEq/15 mL 40 meq PO DAILY 04/29/23 07/19/23 History oral liquid vit no.95-ferrous 1 tab PO DAILY 04/29/23 07/19/23 History fumarate 28 mg-folic acid 800 mcg tablet () chlordiazepoxide HCl 10 mg capsule 10 mg PO Q6H PRN PANIC ATTACKS 07/19/23 07/19/23 History chlordiazepoxide HCl 10 mg capsule 10 mg PO BID #9 caps 07/22/23 Rx thiamine HCl (vitamin B1) 100 mg 200 mg (2 x 100 mg) PO DAILY #60 07/22/23 Rx tablet (Vitamin B-1) tabs Past Med/Surg History Problem List (Updated 08/18/23 @ 23:43 by Patrick Polo MD) Mydriasis Methamphetamine intoxication UTI (urinary tract infection) Left lower quadrant abdominal pain Alcoholic intoxication Alcohol withdrawal (Acute) Seizure-like activity (Acute) Vomiting (Acute) Elevated liver transaminase level Hypokalemia History of seizure due to alcohol withdrawal (Acute) Elevated liver enzymes (Acute) Vomiting (Acute) Alcohol abuse (Acute) Hypomagnesemia (Acute) Alcohol withdrawal (Acute) Hypomagnesemia (Acute) Alcohol use disorder (Acute) Fall (Acute) GERD (gastroesophageal reflux disease) (Acute) Reflux gastritis Anxiety with depression B12 deficiency Depression (Acute) Reflux esophagitis Hepatic steatosis Medical History Seizure Hypophosphatemia Irritable bowel syndrome Hyponatremia Leukocytosis Elevated lactic acid level Alcoholic gastritis High anion gap metabolic acidosis Alcoholic ketoacidosis Alcohol withdrawal Alcoholic intoxication Sciatica Transaminitis Alcoholism Chest pain at rest History of intussusception Thrombocytopenia Tension headache Breast lump on left side at 11 o'clock position Hypomagnesemia Miscarriage PTSD (post-traumatic stress disorder) Pancreatitis Surgical History S/P dilation and curettage H/O foot surgery Previous section Family History Mother Depression Anxiety Brother Depression Anxiety Denies family history of Ovarian cancer Prostate cancer Diabetes Myocardial infarction Breast cancer Colorectal cancer Hypertension Social History Smoking Status: Never smoker Second Hand Exposure: No; Do You Dip or Chew Tobacco: No; Hx Alcohol Use: Yes Alcohol type: hard liquor Hx Substance Use: Yes Last Used Substance: Days (ago) Substance Use Type Other:: meth + on drug screen, denies any drug use Preferred Language: Korean Communication Ability: Effective Visual Impairment: No Limitations Hearing Ability: Normal Emergency Registrar Required: No Beliefs That Will Affect Care: None marital status: Current Living Situation: Family Current Living Situation Comment: mom, dad, son 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[employer] How many Children do You have: 1 Feels Safe at Home: Yes Safety Concerns: Feels Safe At This Time Childhood Exposure to Second-Hand Smoke: No Diet: regular Dental Care, Regularly: Yes Physical Activity Frequency: 5-6 Times per Week Seatbelt Use: always Sunscreen Use: Yes Assistive Devices: None Review of Systems Review of Systems: All systems reviewed & are unremarkable except as noted in HPI & below 2 weeks of vaginal bleeding Physical Exam Constitutional: well developed; + not well nourished and no acute distress Eyes: + abnormal pupil size (b/l pupils signif icantly dilated but reactive to light b/l); no nystagmus ENMT: external ear and nose normal, oropharynx normal Respiratory: normal respiratory effort, lungs clear to auscultation Cardiovascular: RRR, no murmur, no edema Gastrointestinal (Abdomen): Inspection/Auscultation: abdomen normal to inspection; abdomen not distended Percussion/Palpation: + abdomen tender (mild LLQ) and abdomen soft; no guarding and abdomen not rigid Musculoskeletal: no cyanosis or clubbing, extremities motor strength 5/5 Skin: no rashes, warm and dry Neurologic: moves all extremities and awake; not confused Speech / Cognition: normal speech Motor/Sensory: no tremor Psychiatric: A+Ox3, euthymic affect Results & Data Results & Data Vital Signs (Past 12 Hours) Vital Signs Temp Pulse Pulse Resp BP BP Pulse Ox 08/18/23 16:15 107 H 18 120/89 96 08/18/23 16:10 107 H 24 93 08/18/23 16:00 112 H 26 H 94 08/18/23 15:50 112 H 26 H 93 08/18/23 15:40 107 H 18 93 08/18/23 15:30 131/91 08/18/23 15:30 111 H 21 92 08/18/23 15:20 107 H 22 93 08/18/23 15:10 109 H 24 92 08/18/23 15:00 139/90 08/18/23 15:00 109 H 90 08/18/23 14:50 120 H 23 97 08/18/23 14:50 150/98 H 08/18/23 14:40 120 H 22 93 08/18/23 14:30 134/92 08/18/23 14:30 115 H 23 96 08/18/23 14:25 94 08/18/23 14:24 94 08/18/23 14:20 112 H 22 94 08/18/23 14:20 111 H 08/18/23 14:14 109 H 21 96 08/18/23 13:41 36.7 C 131 H 20 159/113 H 93 O2 Del Method 08/18/23 16:15 Room Air 08/18/23 16:10 08/18/23 16:00 08/18/23 15:50 08/18/23 15:40 08/18/23 15:30 08/18/23 15:30 08/18/23 15:20 08/18/23 15:10 08/18/23 15:00 08/18/23 15:00 08/18/23 14:50 08/18/23 14:50 08/18/23 14:40 08/18/23 14:30 08/18/23 14:30 08/18/23 14:25 Room Air 08/18/23 14:24 Room Air 08/18/23 14:20 08/18/23 14:20 08/18/23 14:14 08/18/23 13:41 Room Air Laboratory Results Abnormal lab results 08/18/23 08/18/23 08/18/23 Range/Units 14:13 15:52 Unknown RBC 3.85 L (4.20-5.40) M/uL Hct 35.4 L (37.0-47.0) % RDW Std Deviation 46.5 H (36.4-46.3) fL [place] # (Auto) 0.75 H (0.11-0.59) K/uL Sodium 135 L (136-145) mmol/L Potassium 3.2 L (3.5-5.1) mmol/L Chloride 96 L (98-107) mmol/L Anion Gap 17 H (3-11) BUN/Creatinine Ratio 7.6 L (10-20) Glucose 101 H (70-99(Fasting)) mg/dl Lactate 3.3 H* (0.4-2.0) mmol/L Magnesium 1.6 L (1.7-2.4) mg/dl AST 69 H (13-39) U/L Urine Appearance Cloudy A (Clear) Urine Protein Trace H (Negative) Urine Blood 1+ H (Negative) Ur Leukocyte Esterase 3+ H (Negative) Urine WBC (Auto) >50 H (0-5) /hpf Urine Bacteria (Auto) 4+ H (None Seen) Salicylates < 3.0 L (3.0-30) mg/dl Acetaminophen < 3 L (10-30) ug/ml U Amphetamin/Meth Scrn Pos H (Neg) U Benzodiazepines Scrn Pos H (Neg) Ethyl Alcohol mg/dL 424.4 H (<10.0) mg/dl Diagnostic Findings XR chest 1V portable HISTORY: shortness of breath COMPARISON: Chest 05/17/2023. FINDINGS: The lungs are clear. Cardiac silhouette is normal in size. No pleural effusions. No pneumothorax. IMPRESSION: No acute process. Medications Administered ER Medications Given: Normal saline 1L bolus Normal saline 1L bolus Lorazepam 2mg IV Banana Bag Lorazepam 2mg IV ECG Rate (beats per minute): 109 Rhythm: sinus tachycardia Findings: + other (T wave flattening throughout) Comparison ECG Date: from (July 18, 2023) Change: no significant change Code Status & VTE Plan Code Status Full VTE Prophylaxis Plan VTE Prophylaxis will be ordered: Yes PG Care Time/CCT Total # of Minutes Spent Total Time Spent with Patient: Total time spent is greater than 50% in coordination of care (as documented) at patient's floor/unit and/or counseling patient: Coding Level of Care Code 24297 INT INP/OBS CARE 3/75MIN Diagnoses Alcoholic intoxication F10.929 Methamphetamine intoxication F15.929 Left lower quadrant abdominal pain R10.32 UTI (urinary tract infection) N39.0 Mydriasis H57.04 Hypomagnesemia E83.42 Anxiety with depression F41.8
--- NOTE | 2023-08-18 17:04 | Electrocardiogram Report ---
Test Reason : Blood Pressure : / mmHG Vent. Rate : 109 BPM Atrial Rate : 109 BPM P-R Int : 138 ms QRS Dur : 082 ms QT Int : 372 ms P-R-T Axes : 006 017 -35 degrees QTc Int : 500 ms Sinus tachycardia Diffuse Nonspecific ST and T wave abnormality Abnormal ECG When compared with ECG of 18-JUL-2023 23:27, No significant change Confirmed by Renaldo Tejeda ([id number]) on 08/18/2023 5:03:41 PM Referred By: REFERRED SELF Confirmed By:Renaldo Tejeda
--- NOTE | 2023-08-18 17:29 | XRay Report ---
XR chest 1V portable HISTORY: shortness of breath COMPARISON: Chest 05/17/2023. FINDINGS: The lungs are clear. Cardiac silhouette is normal in size. No pleural effusions. No pneumot horax. IMPRESSION: No acute process. ACT 112: Negative or not required by law. Electronically signed by: Jone Dupont M.D. 08/18/2023 5:28 PM
[2023-08-18] MEDS: POTASSIUM CHLORIDE CRTAB 20 MEQ TABCR PO STA (21:23)
[2023-08-18] MEDS: MAGNESIUM SULFATE / D5W 1 GM/100 ML BAG IV SCH (21:24)
[2023-08-18] MEDS: PROPRANOLOL HCL 10 MG TAB PO SCH (21:34)
[2023-08-19] MEDS ORDERED: PHENobarbital PO Alcohol Withdrawal PO STA (00:59)
[2023-08-19] MEDS: PHENobarbital sodium 65 MG/ML VIAL IV STA (01:17)
[2023-08-19] MEDS: PHENobarbital sodium 65 MG/ML VIAL IV PRN ×2 (01:45→04:51)
[2023-08-19] MEDS: LORazepam 0.5 MG in SYRINGE 0.25 ML IV STA (05:04)
[2023-08-19 05:58] LABS: Albumin Globulin Ratio 1.5 (0.9-2); BUN Creatinine Ratio 5.8 (10-20); Bilirubin,Total 0.6 mg/dl (0.2-1.0); Calcium 7.7 mg/dl (8.6-10.3); Creatinine Clr Calc Pharmacy 139.5 ml/min; Est GFR (African American) 127.1 ml/min; Est GFR (Non-African American) 109.7 ml/min; Globulin 2.6 gm/dl (2.5-4.0); Magnesium 1.9 mg/dl (1.7-2.4); Potassium 3.8 mmol/L (3.5-5.1); Total Protein 6.6 gm/dl (6.0-8.3)
[2023-08-19 06:14] LABS: Basophils # (auto) 0.05 K/uL (0.00-0.20); Basophils % (auto) 1.1 %; Eosinophils # (auto) 0.13 K/uL (0.00-0.50); Eosinophils % (auto) 2.9 %; Hematocrit (blood only) 34.2 % (37.0-47.0); Hemoglobin 11.8 g/dl (12.0-16.0); Immature Granulocytes # (auto) 0.01 K/uL (0.01-0.20); Immature Granulocytes % (auto) 0.2 %; Lymphocytes # (auto) 1.32 K/uL (1.20-3.40); Lymphocytes % (auto) 29.8 %; Mean Corpuscular Hemoglobin 32.5 pg (25.0-34.0); Mean Corpuscular Hgb Conc 34.5 g/dL (32.0-36.0); Mean Corpuscular Volume 94.2 fL (80.0-100.0); Monocytes # (auto) 0.47 K/uL (0.11-0.59); Monocytes % (auto) 10.6 %; Neutrophils # (auto) 2.45 K/uL (1.40-6.50); Neutrophils % (auto) 55.4 %; Platelet Count 125 K/uL (130-400); RDW Coefficient of Variation 14.1 % (11.5-14.5); RDW Standard Deviation 48.5 fL (36.4-46.3); Red Blood Count 3.63 M/uL (4.20-5.40); White Blood Count 4.43 K/ul (4.8-10.8)
[2023-08-19] MEDS: GABAPENTIN 300 MG CAP PO SCH (08:03)
[2023-08-19] MEDS: hydrOXYzine HCl 25 MG TAB PO PRN (08:04)
[2023-08-19] MEDS: LINACLOTIDE 145 MCG CAPSULE PO SCH (08:05)
[2023-08-19] MEDS: THIAMINE HCL 100 MG TAB PO SCH (08:05)
[2023-08-19] MEDS ORDERED: PANTOprazole 40 MG TAB PO SCH (09:00)
[2023-08-19] MEDS: FOLIC ACID 1 MG TAB PO SCH (09:34)
[2023-08-19] MEDS: cefTRIAXone SODIUM 2,000 MG/50 ML BAG IV SCH (10:10)
[2023-08-19] MEDS: POTASSIUM CHLORIDE 20 MEQ/15 ML UDC PO SCH (12:55)
[2023-08-19] MEDS ORDERED: LORazepam 1 MG TAB PO PRN ×3 (16:58)
[2023-08-19] MEDS ORDERED: Ativan PO Alcohol Withdrawal--Active Protocol PO PRN (16:58)
[2023-08-19] MEDS: chlordiazePOXIDE HCl 25 MG CAP PO ONE (17:38)
--- NOTE | 2023-08-19 17:55 | Hospitalist Progress Note ---
Date of Service August 19, 2023 Assessment & Plan (1) Alcohol withdrawal: (2) Suprapubic discomfort: (3) Anxiety with depression: Plan PHI is a 38 y/o F with a h/o UTI, Alcohol Use, Seizures (2/2 Alcohol withdrawal), Alcoholic Hallucinosis, Apparent alcoholic neuropathy, Methamphetamine Intoxication?, Hypokalemia, Hypomagnesemia, GERD, Anxiety, Depression, PTSD, B12 deficiency, Hepatic Steatosis, Breast Lump, Ovarian Cysts (1) Alcohol Withdrawal * Alcohol level 424 on admission. She historically has alcohol withdrawal relatively quickly following her last drink. * She's interested in outpatient rehabilitation, single mother to a 10 y/o child * Minimal improvement on PhenobarbitolSwitch to front-loaded Librium 100mg followed by 50mg TID scheduled Librium, symptom-triggered Ativan PRN. * Patient denies methamphetamine use but pupils significantly dilated with positive urine drug screen, awating confirmatory testing * Intoxication with Amphetamines is unlikely at this point given short HL of Methamphetamines (6-15H) (3) Suprapubic Discomfort * Mild on exam * Reports ongoing and stable LLQ tenderness since visit to [facility] where she had a CT scan and was diagnosed with ovarian cysts - will request records rather than repeat imaging. * Cont Ceftrizxone 2,000 mg QD (4) UTI (urinary tract infection): * Dysuriamild urinary frequency and urgency, may also be due to alcoholic diuresis * Urine Cx preliminarily (+) for Gram (-) Bacilli * H/o of asymptomatic bacteriuria, her last two (+) E. Coli cultures in May and May 2022 at [facility] did not require treatment * Cont Ceftriaxone 2g IV until d/c given mild urinary frequency and urgency (5) Anxiety with depression: * No further concern for Serotonin Syndrome given the reduced HL of Methamphetamine (6-15H), can restart BuSpar, Duloxetine and Mirtazapine Admission and Anticipated Discharge Date Admission Date: August 18, 2023 Supervising Physician Co-Signing Physician Notes I personally examined the patient and verified all méndez points of history and exam, discussed case, and agree with decision making with Lucia COSTA and Dr Beard feeling lousy, withdrawal still feels pretty bad. vitals noted laying in bed covered, shaking, somewhat sweaty, anxious appearing. breathing unlabored no accessory musclse good effort skin no rashes no pallor or icterus neuro no focal deficits EtOH abuse/intoxication/withdrawal - phenobarb not helping enough - change to front-loaded and symptom triggered benzo Rx. thiamine/folate. continue supportive care otherwise as above Subjective HPI Arrived at [facility] ED on 08/17, c/o alcohol withdrawal w/ palpitations, sweating, SOB. Recent h/o multiple hospitalizations related to alcohol use. Was in [place] ER last night, didn't like how she was treated. Drank before coming to [facility] ED (last drink was a pint of Vodka 2 days ago at [facility]). Feels tremulous. Was gi angela Ativan in the ED. Possible UTI. 4 hospitalizations so far this year, 9 last year. Morning: Is feeling worse than last night, very tremulous. She reports No Pain, Burning w/ urination, or Discoloration to Urine, but does endorse Frequency & Urgency (Alcoholic Diuresis may be contributing factor). UA was dirty, Urine Cx preliminarily shows Gram (-) Bacilli. Denies any Methamphetamine Use. Interested in outpatient rehab because she is a single mother to a 10y/o daughter. Last drink was 2 days ago at midday, a pint of Vodka. No altered mental status. (+) Diaphoresis (Cold Sweat) and Tremor, (+) Numbness/Tingling in hands and feet, No CVA Tenderness, No N/V, No AVH, No Tactile Hallucinations Afternoon: Is feeling about the same this afternoon, rates her discomfort at an 8/10, feels that current meds are not working as well for her. Still tremulous and diaphoretic, breathing appears more normal, no accessory muscle use. Review of Systems Review of Systems: ROS (-) excepting HPI Physical Exam Physical Exam: GEN: AAO x4, Ill-Appearing, Diaphoretic, Tremulous Female HEENT: NC/AT, Pupils moderately Dilated (5-6mm) PERRLA, EOMI, Good Conjugate Gaze, Nares Patent, MMM, normal conjunctiva NECK: Supple, No LAD, Normal ROM RESP: CTAB, No WRR, Normal Respiratory Effort, No accessory muscle use CV: RRR, Normal S1/S2, No M/R/G ABD: Soft, Moderate Suprapubic Tenderness, otherwise Non-Tender/Non-Distended, Normal Bowel Sounds, No Hepatosplenomegaly, No Masses EXT: Significant Tremor of Upper and Lower Extremities, no Asterixis. Strength 5/5 b/l, Cap Refill <2s, Radial & Tibial Pulses 2+ b/l, No Edema, No cyanosis NEURO: CN II-XII Intact, Sensation intact DERM: Skin Intact, No Rashes, No Lesions, No Erythema Results & Data Results & Data Vital Signs (Past 12 Hours) Vital Signs Temp Pulse Resp BP Pulse Ox O2 Del Method 08/19/23 12:14 37 C 08/19/23 12:00 73 22 94 Room Air 08/19/23 10:52 68 24 133/102 H 08/19/23 10:44 133/102 H 08/19/23 10:44 79 26 H 97 08/19/23 10:00 71 98 08/19/23 08:37 37 C 08/19/23 08:00 83 11 L 95 08/19/23 07:00 79 17 98 Room Air 08/19/23 07:00 140/94 08/19/23 06:00 85 16 138/86 96 Room Air Laboratory Results 08/19/23 08/18/23 08/18/23 05:06 Unknown 17:54 WBC 4.43 L RBC 3.63 L Hgb 11.8 L Hct 34.2 L MCV 94.2 MCH 32.5 MCHC 34.5 RDW Std Deviation 48.5 H RDW Coeff of [place] 14.1 Plt Count 125 L MPV 11.0 Immature Gran % (Auto) 0.2 Neut % (Auto) 55.4 Lymph % (Auto) 29.8 [place] % (Auto) 10.6 Eos % (Auto) 2.9 Baso % (Auto) 1.1 Neut # (Auto) 2.45 Lymph # (Auto) 1.32 [place] # (Auto) 0.47 Eos # (Auto) 0.13 Baso # (Auto) 0.05 Immature Gran # (Auto) 0.01 Sodium 136 Potassium 3.8 Chloride 102 Carbon Dioxide 22 Anion Gap 12 H BUN 4 L Creatinine 0.69 Est Cr Clr Drug Dosing 139.5 Est GFR ( Amer) 127.1 Est GFR (Non-Af Amer) 109.7 BUN/Creatinine Ratio 5.8 L Glucose 73 Lactate 2.8 H* Calcium 7.7 L Magnesium 1.9 Total Bilirubin 0.6 AST 78 H ALT 24 Alkaline Phosphatase 69 Total Protein 6.6 Albumin 4.0 Globulin 2.6 Albumin/Globulin Ratio 1.5 Nasal Screen MRSA (PCR) Negative Medications Administered Current Inpatient Medications Buspirone HCl (Buspirone 5 Mg Tab) 10 mg PO TID [facility] Stop: 09/18/23 20:59 Chlordiazepoxide HCl (Chlordiazepoxide Hcl 25 Mg Cap) 50 mg PO TID@0000,0800,1600 JOSE F Stop: 09/19/23 00:00 Duloxetine HCl (Duloxetine Hcl 30 Mg Cap) 30 mg PO QAM JOSE F Stop: 09/19/23 08:59 Folic Acid (Folic Acid 1 Mg Tab) 1 mg PO QAM JOSE F Stop: 09/18/23 08:59 Last Admin: 08/19/23 09:34 Dose: 1 mg Gabapentin (Gabapentin 300 Mg Cap) 300 mg PO TID JOSE F Stop: 09/18/23 08:59 Last Admin: 08/19/23 15:25 Dose: 300 mg Hydroxyzine HCl (Hydroxyzine Hcl 25 Mg Tab) 50 mg PO Q6 PRN PRN Reason: Anxiety Stop: 09/17/23 21:17 Last Admin: 08/19/23 08:04 Dose: 50 mg Ceftriaxone Sodium (Rocephin) 2,000 mg in 50 mls @ 100 mls/hr IV Q24H JOSE F Stop: 08/24/23 08:59 Last Infusion: 08/19/23 12:33 Dose: Infused Linaclotide (Linaclotide 145 Mcg Capsule) 145 mcg PO DAILY JOSE F Stop: 09/18/23 08:59 Last Admin: 08/19/23 08:05 Dose: 145 mcg Lorazepam (Lorazepam 1 Mg Tab) 1 mg PO UD PRN; Protocol PRN Reason: EtOH Withdrawal AWSS Score 6,7 Stop: 09/18/23 16:57 Lorazepam (Lorazepam 1 Mg Tab) 3 mg PO ONCE PRN; Protocol PRN Reason: EtOH Withdrawal AWSS Score 10 & above Lorazepam (Lorazepam 1 Mg Tab) 2 mg PO UD PRN; Protocol PRN Reason: EtOH Withdrawal AWSS Score 8,9 Stop: 09/18/23 16:57 Mirtazapine (Mirtazapine Tab 15 Mg Tab) 15 mg PO HS [facility] Stop: 06/20/24 20:59 Potassium Chloride (Potassium Chloride 20 Meq/15 Ml Udc) 40 meq PO DAILY JOSE F Stop: 09/18/23 08:59 Last Admin: 08/19/23 12:55 Dose: 40 meq Prazosin HCl (Prazosin Hcl 1 Mg Cap) 3 mg PO HS [facility] Stop: 09/18/23 20:59 Propranolol HCl (Propranolol Hcl 10 Mg Tab) 10 mg PO BID JOSE F Stop: 09/17/23 21:29 Last Admin: 08/19/23 08:04 Dose: 10 mg Thiamine HCl (Thiamine Hcl 100 Mg Tab) 100 mg PO QAM JOSE F Stop: 09/18/23 08:59 Last Admin: 08/19/23 08:05 Dose: 100 mg (1) Alcohol withdrawal Complication of substance-induced condition: uncomplicated Qualified Code(s): F10.930 - Alcohol use, unspecified with withdrawal, uncomplicated
--- NOTE | 2023-08-19 18:16 | Billing Data ---
Date of Service August 19, 2023 Coding Level of Care Code 32018 SUB INP/OBS CARE
[2023-08-19] MEDS ORDERED: PHENobarbitaL 30 MG TAB PO SCH (19:00)
[2023-08-19] MEDS: PRAZOSIN HCL 1 MG CAP PO SCH (20:56)
[2023-08-19] MEDS: MIRTAZAPINE TAB 15 MG TAB PO SCH (20:57)
[2023-08-19] MEDS: busPIRone 5 MG TAB PO SCH (20:57)
[2023-08-20] MEDS: chlordiazePOXIDE HCl 25 MG CAP PO SCH (00:42)
[2023-08-20 04:39] LABS: Albumin Globulin Ratio 1.5 (0.9-2); Albumin Level 4.1 gm/dl (3.4-5.0); BUN Creatinine Ratio 8.1 (10-20); Bilirubin,Total 0.7 mg/dl (0.2-1.0); Calcium 8.4 mg/dl (8.6-10.3); Creatinine Clr Calc Pharmacy 130.2 ml/min; Est GFR (African American) 118.3 ml/min; Est GFR (Non-African American) 102.1 ml/min; Globulin 2.7 gm/dl (2.5-4.0); Magnesium 1.9 mg/dl (1.7-2.4); Potassium 3.8 mmol/L (3.5-5.1); Total Protein 6.8 gm/dl (6.0-8.3)
[2023-08-20] MEDS: DULoxetine HCL 30 MG CAP PO SCH (09:04)
--- NOTE | 2023-08-20 12:48 | Hospitalist Progress Note ---
Date of Service August 20, 2023 Assessment & Plan (1) Alcohol withdrawal: (2) Suprapubic discomfort: (3) UTI (urinary tract infection): (4) Anxiety with depression: Plan Radha is a 38 y/o F with a h/o UTI, Alcohol Use, Seizures (2/2 Alcohol withdrawal), Alcoholic Hallucinosis, Apparent alcoholic neuropathy, Methamphetamine Intoxication?, Hypokalemia, Hypomagnesemia, GERD, Anxiety, Depression, PTSD, B12 deficiency, Hepatic Steatosis, Breast Lump, Ovarian Cysts (1) Alcohol Withdrawal * Alcohol level 424 on admission. She historically has alcohol withdrawal relatively quickly following her last drink. * She's interested in outpatient rehabilitation, single mother to a 10 y/o child * Switched to front-loaded Librium 100mg followed by 50mg TID scheduled Librium (with significant Sx improvement )symptom-triggered Ativan PRN, cont this regimen * Patient denies methamphetamine use but pupils were significantly dilated with positive urine drug screen, awating confirmatory testing * Intoxication with Amphetamines is unlikely at this point given short HL of Methamphetamines (6-15H), consider secondhand exposure from friends/associates * Consider motivational interviewing, outpatient rehabilitation. She needs help formulating a plan for herself to stay off alcohol. (2) Suprapubic Discomfort * Mild on exam * Reports ongoing and stable LLQ tenderness since visit to [facility] where she had a CT scan and was diagnosed with ovarian cysts - will request records rather than repeat imaging. * Long h/o asymptomatic bacteriuria * D/c Ceftrizxone 2,000 mg QD (3) UTI (urinary tract infection) * Dysuriamild urinary frequency and urgency, may also be due to alcoholic diuresis * Urine Cx preliminarily (+) for Gram (-) Bacilli * H/o of asymptomatic bacteriuria, her last two (+) E. Coli cultures in May and May 2022 at [facility] did not require treatment * D/c Ceftriaxone 2g IV until d/c given mild urinary frequency and urgency (4) Anxiety with depression * No further concern for Serotonin Syndrome given the reduced HL of Methamphetamine (6-15H), can continue BuSpar, Duloxetine and Mirtazapine Admission and Anticipated Discharge Date Admission Date: August 18, 2023 Supervising Physician Co-Signing Physician Notes I personally examined the patient and verified all méndez points of history and exam, discussed case, and agree with decision making with Lucia COSTA and Dr Beard resting and appears to be much more comfortable. No problems identified by nursing. Allowed patient to rest. Vitals noted. Sleeping no distress. Breathing unlabored no accessory muscle use good effort. Skin without rashes pallor or icterus EtOH abuse/intoxication/withdrawal - phenobarb was not helping enough - changed to front-loaded and symptom triggered benzo Rx. doing much betteractually has not needed symptom triggered benzos, and at the same time does not appear to be oversedatedcontinue Librium for now. thiamine/folate. continue supportive care. Patient considering options for more long-term treatment. otherwise as above Subjective HPI Arrived at [facility] ED on 08/17, c/o alcohol withdrawal w/ palpitations, sweating, SOB. Recent h/o multiple hospitalizations related to alcohol use. Was in [place] ER last night, didn't like how she was treated. Drank before coming to [facility] ED (last drink was a pint of Vodka 2 days ago at [facility]). Feels tremulous. Was given Ativan in the ED. Possible UTI. 4 hospitalizations so far this year, 9 last year. Overnight Significant improvement on Benzos. Much less tremulous, CIWA score of 2 down from 23 yesterday morning. Mydriasis has significantly improved. Mood is much better, in her room with her friend Sylvester who came last night after visiting hours and had to be asked to leave. Denies dysuria or active pelvic pain. No N/V/D, Chest Pain, Palpitations, SOB, LE edema Review of Systems Review of Systems: ROS negative excepting HPI Physical Exam Physical Exam: GEN: AAO x4, Well Appearing, NAD HEENT: NC/AT, PERRLA, EOMI, Good Conjugate Gaze, Nares Patent, MMM, normal conjunctiva NECK: Supple, Normal ROM RESP: CTAB, No WRR, Normal Respiratory Effort CV: RRR, Normal S1/S2, No M/R/G ABD: Soft, Non-Tender, Non-Distended, Normal Bowel Sounds, No Hepatosplenome celine, No Masses EXT: Normal Tone & ROM, Strength 5/5 b/l, Sensation Intact NEURO: CN II-XII Grossly Intact DERM: Skin Intact, No Rashes, No Lesions, No Erythema Results & Data Results & Data Vital Signs (Past 12 Hours) Vital Signs Temp Pulse Pulse Resp BP Pulse Ox O2 Del Method 08/20/23 09:24 36.6 C 76 18 131/99 97 Room Air 08/20/23 09:20 79 08/20/23 04:00 36.7 C 74 13 108/57 L 97 Room Air Laboratory Results 08/20/23 03:53 Sodium 133 L Potassium 3.8 Chloride 99 Carbon Dioxide 26 Anion Gap 8 BUN 6 Creatinine 0.74 Est Cr Clr Drug Dosing 130.2 Est GFR ( Amer) 118.3 Est GFR (Non-Af Amer) 102.1 BUN/Creatinine Ratio 8.1 L Glucose 110 H Calcium 8.4 L Magnesium 1.9 Total Bilirubin 0.7 AST 70 H ALT 24 Alkaline Phosphatase 74 Total Protein 6.8 Albumin 4.1 Globulin 2.7 Albumin/Globulin Ratio 1.5 Medications Administered Current Inpatient Medications Buspirone HCl (Buspirone 5 Mg Tab) 10 mg PO TID [facility] Stop: 09/18/23 20:59 Last Admin: 08/20/23 09:03 Dose: 10 mg Chlordiazepoxide HCl (Chlordiazepoxide Hcl 25 Mg Cap) 50 mg PO TID@0000,0800,1600 [facility] Stop: 09/19/23 00:00 Last Admin: 08/20/23 09:04 Dose: 50 mg Duloxetine HCl (Duloxetine Hcl 30 Mg Cap) 30 mg PO QAM [facility] Stop: 09/19/23 08:59 Last Admin: 08/20/23 09:04 Dose: 30 mg Folic Acid (Folic Acid 1 Mg Tab) 1 mg PO QAM [facility] Stop: 09/18/23 08:59 Last Admin: 08/20/23 09:04 Dose: 1 mg Gabapentin (Gabapentin 300 Mg Cap) 300 mg PO TID [facility] Stop: 09/18/23 08:59 Last Admin: 08/20/23 09:03 Dose: 300 mg Hydroxyzine HCl (Hydroxyzine Hcl 25 Mg Tab) 50 mg PO Q6 PRN PRN Reason: Anxiety Stop: 09/17/23 21:17 Last Admin: 08/19/23 08:04 Dose: 50 mg Linaclotide (Linaclotide 145 Mcg Capsule) 145 mcg PO DAILY [facility] Stop: 09/18/23 08:59 Last Admin: 08/20/23 09:03 Dose: 145 mcg Lorazepam (Lorazepam 1 Mg Tab) 1 mg PO UD PRN; Protocol PRN Reason: EtOH Withdrawal AWSS Score 6,7 Stop: 09/18/23 16:57 Lorazepam (Lorazepam 1 Mg Tab) 3 mg PO ONCE PRN; Protocol PRN Reason: EtOH Withdrawal AWSS Score 10 & above Lorazepam (Lorazepam 1 Mg Tab) 2 mg PO UD PRN; Protocol PRN Reason: EtOH Withdrawal AWSS Score 8,9 Stop: 09/18/23 16:57 Mirtazapine (Mirtazapine Tab 15 Mg Tab) 15 mg PO HS [facility] Stop: 09/18/23 20:59 Last Admin: 08/19/23 20:57 Dose: 15 mg Potassium Chloride (Potassium Chloride 20 Meq/15 Ml Udc) 40 meq PO DAILY [facility] Stop: 09/18/23 08:59 Last Admin: 08/20/23 09:03 Dose: 40 meq Prazosin HCl (Prazosin Hcl 1 Mg Cap) 3 mg PO HS [facility] Stop: 09/18/23 20:59 Last Admin: 08/19/23 20:56 Dose: 3 mg Propranolol HCl (Propranolol Hcl 10 Mg Tab) 10 mg PO BID [facility] Stop: 09/17/23 21:29 Last Admin: 08/20/23 09:04 Dose: 10 mg Thiamine HCl (Thiamine Hcl 100 Mg Tab) 100 mg PO QAM [facility] Stop: 09/18/23 08:59 Last Admin: 08/20/23 09:04 Dose: 100 mg (1) Alcohol withdrawal Complication of substance-induced condition: uncomplicated Qualified Code(s): F10.930 - Alcohol use, unspecified with withdrawal, uncomplicated
--- NOTE | 2023-08-20 13:12 | Billing Data ---
Date of Service August 20, 2023 Coding Level of Care Code 35153 SUB INP/OBS CARE
[2023-08-20] MEDS ORDERED: PHENobarbitaL 30 MG TAB PO SCH (19:00)
--- NOTE | 2023-08-21 15:02 | Discharge Summary ---
Date of Service August 21, 2023 Admission HPI Per Admitting Provider Radha Ybarra is a 38 year old female who presents to the ER with sweating and tingling. She was most recently discharged on July 22 due to alcohol withdrawal. She reports going back to drinking alcohol right after discharge. She tried to cut back alcohol last week but started having withdrawal symptoms. [facility]. She reports sitting in the ER for 4 hours last night and was discharged after some lab work. She left around 11:30am and went home and drank a pint of vodka as she felt she was withdrawing around midday which was her last alcohol drink. She was encouraged by her father to come to [facility] for withdrawal treatment to enable her to go to rehabilitation. She notes dysuria which started today. No fever, chills or flank tenderness. Left lower qudrant pain ongoing and stable for last 2 weeks - reports having CTs at [facility] and was diagnosed with ovarian cysts. This has occurred at the same time as vaginal bleeding for this time. Her admission drug screen was positive for methamphetamines with pupils dilated - she denies use but reports being around people who use this. Admission Exam Per Admitting Provider Constitutional: well developed; + not well nourished and no acute distress Eyes: + abnormal pupil size (b/l pupils signif icantly dilated but reactive to light b/l); no nystagmus ENMT: external ear and nose normal, oropharynx normal Respiratory: normal respiratory effort, lungs clear to auscultation Cardiovascular: RRR, no murmur, no edema Gastrointestinal (Abdomen): Inspection/Auscultation: abdomen normal to inspection; abdomen not distended Percussion/Palpation: + abdomen tender (mild LLQ) and abdomen soft; no guarding and abdomen not rigid Musculoskeletal: no cyanosis or clubbing, extremities motor strength 5/5 Skin: no rashes, warm and dry Neurologic: moves all extremities and awake; not confused Speech / Cognition: normal speech Motor/Sensory: no tremor Psychiatric: A+Ox3, euthymic affect Principal Diagnosis Acute alcohol withdrawal Discharge Exam Constitutional WD/WN, vitals as above Respiratory normal respiratory effort, lungs clear to auscultation Cardiovascular RRR, no murmur, no edema Gastrointestinal (Abdomen) normal bowel sounds, soft, nontender, no hepatosplenomegaly Skin no rashes, warm and dry Psychiatric A+Ox3, euthymic affect Discharge Data Allergies Allergy/AdvReac Type Severity Reaction Status Date / Time lactose AdvReac Intermediate GI DISTRESS Verified 07/19/23 00:18 Consultations 08/18/23 15:31 ED Decision to Admit Stat 08/18/23 17:15 HIM [Consult Health Information Management] Stat Hospital Course (1) Alcohol withdrawal: (2) Suprapubic discomfort: (3) Anxiety with depression: Plan Radha is a 38 y/o F with a h/o UTI, Alcohol Use, Seizures (2/2 Alcohol withdrawal), Alcoholic Hallucinosis, Apparent alcoholic neuropathy, Methamphetamine Intoxication?, Hypokalemia, Hypomagnesemia, GERD, Anxiety, Depression, PTSD, B12 deficiency, Hepatic Steatosis, Breast Lump, Ovarian Cysts (1) Alcohol Withdrawal * Alcohol level 424 on admission. * Initially started on Phenobarbital for withdrawal sx, switched to front-loaded Librium 100mg followed by 50mg TID scheduled Librium (with significant Sx improvement ) +symptom-triggered Ativan PRN (no additional Ativan required * Patient denies methamphetamine use but pupils were significantly dilated with positive urine drug screen, still awaiting confirmatory testingat time of discharge * Stable at 72 hours from last drink, discharged with short course of prn Ativan for any residual/breakthrough withdrawal sx * Pt planning to enroll in IOP at [facility], would also like to get back on Vivitrol injections (2) Suprapubic Discomfort * Reports ongoing and stable LLQ tenderness since visit to [facility] where she had a CT scan and was diagnosed with ovarian cysts (3) Asx Bacteriuria * Urine Cx preliminarily (+) for Gram (-) Bacilli, patient without urinary sx * H/o of asymptomatic bacteriuria, her last two (+) E. Coli cultures in May and May 2022 at [facility] did not require treatment (4) Anxiety with depression * Continue home meds Total Time Total Time Spent Total Time Spent (In Minutes): <30 Discharge Plan Discharge Items Patient Disposition: Home - Self-Care Reason For Visit: ALCOHOL INTOX, ABD PAIN, VAG BLEED, METHAMPHETAMIN Discharge Diagnosis: alcohol withdrawal Activity: Resume your previous activity Non-emergency contact: Primary Care Provider Call non-emergency contact if: you have any medication questions and your symptoms worsen Follow-up/Referrals: ASHLEY NOEL [Other] Diet: Regular Addtl Attending Provider Instructions: You were admitted to the hospital for acute alcohol withdrawal. For this, you were given a medication called Librium to help minimize your withdrawal symptoms. Upon discharge, we will send a prescription for a few doses of Ativan. Typically, withdrawal symptoms peak around 72 hours after your last drink, but it is possible that you will still have some residual symptoms. Please take a dose of Ativan if experiencing mild to moderate withdrawal symptoms. If you are having more severe symptoms, please return to the hospital. Moving forward, I agree that it is a good idea to enroll in an IOP program and to get back on Vivitrol injections. A discharge summary will be sent to your primary care physician to ensure continuity of care. Please bring this discharge summary with you to your next office appointment so that your provider can review it at that time. Medications: Your medication list has been reviewed and reconciled upon discharge to ensure accuracy and continuity of care. An updated list of all your medications is included with your hospital discharge paperwork. Please review this list closely and make note of any changes to your medications. Follow up appointments: - Make a follow up appointment with your PCP within the next week. It is very important that you follow up with them shortly after discharge from the hospital. - Keep all of your follow up appointments as already scheduled. If you cannot make an appointment, notify your provider. CONTACT YOUR PRIMARY CARE PROVIDER if you experience any of the following: - Difficulty following your treatment plan - Difficulty taking any of your medications CALL 911 OR GO TO THE EMERGENCY DEPARTMENT if you experience any of the following: - Sudden, severe abdominal pain or nausea/vomiting - Severe chest pain or chest pain that radiates to your jaw or arm - Sudden, severe shortness of breath or difficulty breathing Pending Studies at Discharge: No Stand-Alone Forms: [employer], Smoking Cessation Medications and DC Order Prescriptions: New lorazepam 1 mg tablet 1 mg PO Q6H PRN (Reason: withdrawal symptoms) Qty: 5 0RF Continued duloxetine 60 mg capsule,delayed release(DR/EC) 60 mg PO QAM Rx Instructions: TOTAL DOSE 90 MG--TAKES WITH 30 MG CAP. propranolol 10 mg tablet 10 mg PO BID Qty: 30 6RF mirtazapine 15 mg tablet 15 mg PO HS Linzess 145 mcg capsule 145 mcg PO DAILY gabapentin 300 mg capsule 300 mg PO TID hydroxyzine pamoate 50 mg capsule 50 mg PO Q6 PRN (Reason: Anxiety) potassium chloride 40 mEq/15 mL liquid 40 meq PO DAILY buspirone 10 mg Tablet 10 mg PO TID PNV [id number] fumarate-FA [] 28 mg iron- 800 mcg Tablet 1 tab PO DAILY duloxetine 30 mg Capsule, Delayed Rel Sprinkle 30 mg PO DAILY Rx Instructions: TOTAL DOSE 90 MG--TAKES WITH 60 MG CAP. folic acid 1 mg tablet 1 mg PO DAILY prazosin 1 mg capsule 3 mg PO HS thiamine HCl (vitamin B1) [Vitamin B-1] 100 mg tablet 200 mg PO DAILY Qty: 60 0RF Discontinued chlordiazepoxide HCl 10 mg capsule 10 mg PO Q6H PRN (Reason: PANIC ATTACKS) chlordiazepoxide HCl 10 mg capsule 10 mg PO BID Qty: 9 0RF Rx Instructions: 1 po bid x 3 days then 1 po daily x 3 days Discharge Orders: Discharge Order (Routine); Ordered 08/21/23 Ordered By: Bronson Beard Admission Data Admit Date/Time: 08/18/23 17:18 Attending Provider: Issa Ma Admit Provider: Patrick Polo Primary Care Provider: ASHLEY NOEL Other Providers: Patrick Polo Other Interventions: Discharge Summary Assessment (RN) Last Done: 08/21/23 12:47 Supervising Physician Co-Signing Physician Notes I personally examined the patient and verified all méndez points of history and exam, discussed case, and agree with decision making with Lucia COSTA and Dr Beard Feeling better and feeling up to going home. Also discussed her syncopal episodesshe has had an extensive workup with cardiology with no yield, and it sounds like she is probably just more prone to orthostatic or vagal events. We discussed adequate hydration and salt loadingshe notes her sales and marketing vice president and told her the same. Discussed getting back to exercising as that has helped her with maintaining sobriety before, we discussed how alcohol is also quite dehydrating and that certainly can make her more prone to syncope. Vitals noted, in general she is awake and alert pleasant no distress. HEENT normocephalic atraumatic mucous membranes moist. Breathing unlabored no accessory muscle use good effort. Skin shows no rashes no pallor or icterus. Neuro without focal deficits. EtOH abuse/intoxication/withdrawal - Doing better from a withdrawal standpoint. Safe/stable for home. Small amount of symptom triggered Ativan prescribed as welldiscussed to use for tremors/racing heart/sweats, but would hold off on using purely for anxiety so as to avoid creating the vicious cycle that can happen when utilizing benzodiazepines purely as anxiolytic and a chronic condition. As it relates to her syncopal episodessounds like she is just more towards the orthostatic vagal end of the spectrum, but without n ecessarily a true disease state. We discussed alcohol can be dehydrating, but also that some people does need to maintain better hydration. Discussed 60-80 ounces of fluid per day with an additional 5-10 ounces per hour of exercise or working in the heat. Discussed salt loading, discussed what the syncopal prodrome feels like (she recognized this) and discussed sitting down or laying down when 1 feels the prodrome so as to avoid a syncopal episode. With this in mind would recommend getting back to exercise given that that has helped her with sobriety in the past. otherwise as above Resident Activity Tracking Resident Involvement: Resident Care Provided Care Provided: Adult Hospital Medicine
[2023-08-21 18:22] LABS: 7-Aminoclonaz, Confirm NEGATIVE ng/mL (<25); Amphetamine Urine, Confirm NEGATIVE ng/mL (<250); Hydro-Alp Ur, GC/MS NEGATIVE ng/mL (<25); Hydroxyethylflurazepam, Conf NEGATIVE ng/mL (<50); Hydroxymidazolam Ur, GC/MS NEGATIVE ng/mL (<50); Hydroxytriazolam NEGATIVE ng/mL (<50); Lorazepam, Ur GC/MS 166 ng/mL (<50); Methamphetamine, Ur Confirm 2986 ng/mL (<250); Nordiazepam, Confirm NEGATIVE ng/mL (<50); Oxazepam Ur, GC/MS NEGATIVE ng/mL (<50); Temazepam, Confirm NEGATIVE ng/mL (<50)
--- NOTE | 2023-08-21 18:28 | Billing Data ---
Date of Service August 21, 2023 Coding Level of Care Code 26659 IN/OBS DISCH 30 MIN/LESS
[2023-08-22] MEDS ORDERED: PHENobarbitaL 30 MG TAB PO SCH (07:00)
== END 2023-08-21 14:22 | disposition home or self-care (01) | DRG 897 ==
LOC: ED 13:32 → SUATTDRO 17:18 → EDINP 17:18 → 1E 20:49 → 3W 08-20 13:46
DX: H57.04 Mydriasis; Z79.899 Other long term (current) drug therapy; Z86.69 Personal history of other diseases of the nervous system and sense organs; F41.8 Other specified anxiety disorders; E83.42 Hypomagnesemia; N83.209 Unspecified ovarian cyst, unspecified side; Y90.8 Blood alcohol level of 240 mg/100 ml or more; R11.10 Vomiting, unspecified; F10.139 Alcohol abuse with withdrawal, unspecified; R82.71 Bacteriuria; E73.9 Lactose intolerance, unspecified; R55 Syncope and collapse; F15.929 Other stimulant use, unspecified with intoxication, unspecified

== ENCOUNTER 2023-09-18 18:55 | Inpatient (IN) ==
[2023-09-18 19:50] LABS: Appearance Urine Turbid (Clear); Bacteria Urine Automated 3+ (None Seen); Bilirubin Urine Negative (Negative); Blood Urine 3+ (Negative); Color Urine Dark Yellow; Epithelial Cell Urine Auto >20 /hpf (0-2); Glucose Urine UA Negative (Negative); Ketones Urine 2+ (Negative); Leukocyte Esterase Urine 2+ (Negative); Nitrite Urine Negative (Negative); Protein Urine 2+ (Negative); RBC Urine Automated >20 /hpf (0-2); Specific Gravity Urine 1.024 (1.000-1.030); Urobilinogen Urine Negative (Negative); WBC Urine Automated >50 /hpf (0-5)
[2023-09-18 20:01] LABS: Basophils # (auto) 0.08 K/uL (0.00-0.20); Eosinophils # (auto) 0.03 K/uL (0.00-0.50); Eosinophils % (auto) 0.4 %; Hemoglobin 13.7 g/dl (12.0-16.0); Immature Granulocytes # (auto) 0.03 K/uL (0.01-0.20); Immature Granulocytes % (auto) 0.4 %; Lymphocytes # (auto) 2.09 K/uL (1.20-3.40); Lymphocytes % (auto) 26.9 %; Mean Corpuscular Hemoglobin 31.6 pg (25.0-34.0); Mean Corpuscular Hgb Conc 35.1 g/dL (32.0-36.0); Mean Corpuscular Volume 90.1 fL (80.0-100.0); Mean Platelet Volume 11.1 fL (9.4-12.4); Monocytes # (auto) 0.42 K/uL (0.11-0.59); Monocytes % (auto) 5.4 %; Neutrophils # (auto) 5.13 K/uL (1.40-6.50); Neutrophils % (auto) 65.9 %; Platelet Count 288 K/uL (130-400); RDW Coefficient of Variation 13.8 % (11.5-14.5); RDW Standard Deviation 45.1 fL (36.4-46.3); Red Blood Count 4.33 M/uL (4.20-5.40); White Blood Count 7.78 K/ul (4.8-10.8)
[2023-09-18] MEDS: diazePAM 5 MG/ML 10ML VIAL IV STA (20:04)
[2023-09-18 20:13] LABS: Alanine Aminotransferase 67 U/L (7-52); Albumin Globulin Ratio 1.7 (0.9-2); Alkaline Phosphatase 69 U/L (34-104); Anion Gap 19 (3-11); BUN Creatinine Ratio 7.9 (10-20); Bilirubin,Total 0.6 mg/dl (0.2-1.0); Blood Urea Nitrogen 6 mg/dl (6-23); Calcium 9.7 mg/dl (8.6-10.3); Carbon Dioxide 23 mmol/L (21-32); Chloride 90 mmol/L (98-107); Creatinine Clr Calc Pharmacy 117.3 ml/min; Est GFR (African American) 114.5 ml/min; Est GFR (Non-African American) 98.8 ml/min; Glucose 97 mg/dl (70-99(Fasting)); Lipase 30 U/L (11-82); Sodium 132 mmol/L (136-145)
[2023-09-18 20:28] LABS: Pregnancy Test, Serum Negative (Negative)
--- NOTE | 2023-09-18 20:29 | History & Physical Report ---
Date of Service September 18, 2023 Assessment & Plan (1) Alcohol withdrawal: Plan: Patient presented for alcohol detox on 09/17 Hx of multiple admissions for same In the past 4 days she has been drinking 1/5 of vodka daily Last drink was 2 hours prior to coming to the ED Medical alcohol level ordered, pending UDS ordered, pending Elevated AST at 111 and ALT at 67 hCG negative Elevated anion gap at 19; lactate ordered, pending AWSS protocol with IV Ativan Daily thiamine and folic acid supplementation Gabapentin 300 mg TID --> 600mg TID Seizure precautions A.m. CBC, BMP, mag (2) Abnormal EKG: Plan: Patient endorses significant chest pain, which is common with her withdrawal However, EKG on arrival does reveal T wave inversions in the anterior leads when compared to prior; ?Takotsubo's Troponin WNL on arrival Echocardiogram ordered, pending Hold propranolol 10 mg BID, start metoprolol succinate 25 mg p.o. daily Cardiology consulted (3) Acute UTI: Plan: UA positive on arrival Clinically, patient endorses burning with urination and suprapubic tenderness Patient has grown pansensitive E. coli on prior urine cultures, with the most recent being on 08/18/2023 One episode of coag negative staph, not saprophytic, with sensitivity to oxacillin Ceftriaxone 2000 mg IV q24h (4) RUQ pain: Plan: RUQ is TTP on clinical exam No prior history of abdominal surgeries besides her She denies any recent falls/trauma to the abdomen, pelvis, chest wall A/P CT with contrast ordered, pending (5) Anxiety with depression: Plan: Patient reports cycles of binging alcohol are secondary to her history of PTSD Continue BuSpar, duloxetine, mirtazapine, and prazosin (6) Acute hyponatremia: Plan: Mild; NA 132 on arrival Suspect secondary to alcohol use; beer potomania IVF resuscitation with LR at 100 mL/hr x 1 Trend a.m. BMP (7) Hepatic steatosis: (8) Alcoholic intoxication: (9) History of seizure due to alcohol withdrawal: (10) PTSD (post-traumatic stress disorder): Plan Disposition: Admit to PCU telemetry Full code Regular diet VTE PPx: SCDs History of Present Illness Chief Complaint: Detox Request, alcohol withdrawal Primary Care Provider: ASHLEY Garcia is a 38-year-old female with PMH of hepatic steatosis, alcohol withdrawal with seizures, methamphetamine intoxication, alcohol use disorder, GERD, falls, anxiety and depression. She presented for a detox request on 09/17. Multiple [place] admissions for similar in the past. Last drink was today at approximately 6 PM. Patient reports that she drinks 1/5 of vodka daily, and has been for the past 4 days. She last took her regular medications 4 days ago; she reports that she usually stops taking her medications when she goes on alcoholic binges. She also reports that she has been vomiting for the past 3 days; she managed to eat something for the first time today (pizza mozzarella sticks). She has not been taking any medications for her current symptoms. She does endorse a history of seizures related to alcohol withdrawal but denies being 1.5 months ago prior to coming to the hospital. She endorses one episode of visual/auditory hallu cinations in the past with Adderall, but denies any visual/auditory hallucinations or DTs at present. She does endorse a resting tremor. She came in specifically today because her heart was racing. She does endorse 6/10 left- sided chest pain at present; 9/10 at worst. It is exacerbated when she stands up and exerts herself. No radiation to the jaw, shoulder, arm, or back. She characterizes it as a dull/aching pain like something is "sitting on her chest". No prior history of VA. Associate symptoms include severe numbness and tingling in both arms bilaterally. Pain is slightly alleviated when sitting up and sitting forward. No PMH of DVT/PE, CVA, or diabetes. She reports she has done well on Ativan and Valium in the past with her alcohol withdrawal, but not so much on phenobarbital. She reports that she goes on these alcoholic binges due to her history of PTSD. Of note, patient also endorses right upper quadrant pain to palpation that she first noticed over the past couple days. She denies smoking and tobacco use. Patient is mildly tachycardic around 100 bpm at time of admission, and mildly hypertensive at 147/101. ED course: Valium 5 mg IV Folic acid 1 mg IV Thiamine 100 mg IV ROS: Patient endorses chills, cold-sweats, tremors, dizziness, headache, chest pain, chest palpitation, abdominal pain, nausea, vomiting (she reports this is been 24/7 for the past 3 days), suprapubic tenderness, burning with urination, and severe numbness/tingling in the hands. Patient denies fever, visual/auditory hallucinations, rashes, tick bites, SOB, and pleuritic CP. Allergies Allergy/AdvReac Type Severity Reaction Status Date / Time lactose AdvReac Intermediate GI DISTRESS Verified 07/19/23 00:18 Home Medications Medication Instructions Recorded Confirmed Type mirtazapine 15 mg tablet 15 mg PO HS 01/15/22 09/18/23 History duloxetine 60 mg capsule,delayed 60 mg PO QAM 04/29/22 09/18/23 History release gabapentin 300 mg capsule 300 mg PO TID 05/23/22 09/18/23 History folic acid 1 mg tablet 1 mg PO DAILY 10/16/22 09/18/23 History propranolol 10 mg tablet 10 mg PO BID #30 tabs 11/11/22 09/18/23 Rx prazosin 1 mg capsule 3 mg PO HS 03/14/23 09/18/23 History buspirone 10 mg tablet 10 mg PO TID 04/29/23 09/18/23 History lorazepam 1 mg tablet 1 mg PO Q6H PRN withdrawal 08/21/23 09/18/23 Rx symptoms #5 tabs docusate sodium 100 mg capsule 100 mg PO UD PRN Constipation 09/18/23 09/18/23 History hydroxyzine HCl 25 mg tablet 25 mg PO QID PRN Anxiety 09/18/23 09/18/23 History multivitamin-iron 9 mg-folic acid 1 tab PO DAILY 09/18/23 09/18/23 History 400 mcg-calcium and minerals tablet Past Med/Surg History Problem List (Updated 09/18/23 @ 21:55 by Jone Floyd PA-C) RUQ pain Abnormal EKG PTSD (post-traumatic stress disorder) Acute hyponatremia (Acute) Acute UTI Suprapubic discomfort (Acute) Mydriasis Methamphetamine intoxication Left lower quadrant abdominal pain Alcoholic intoxication Alcohol withdrawal (Acute) Seizure-like activity (Acute) Vomiting (Acute) Elevated liver transaminase level Hypokalemia History of seizure due to alcohol withdrawal (Acute) Elevated liver enzymes (Acute) Vomiting (Acute) Alcohol abuse (Acute) Hypomagnesemia (Acute) Alcohol withdrawal (Acute) Hypomagnesemia (Acute) Alcohol use disorder (Acute) Fall (Acute) GERD (gastroesophageal reflux disease) (Acute) Reflux gastritis Anxiety with depression B12 deficiency Depression (Acute) Reflux esophagitis Hepatic steatosis Medical History Seizure Hypophosphatemia Irritable bowel syndrome Hyponatremia Leukocytosis Elevated lactic acid level Alcoholic gastritis High anion gap metabolic acidosis Alcoholic ketoacidosis Alcohol withdrawal Alcoholic intoxication Sciatica Transaminitis Alcoholism Chest pain at rest History of intussusception Thrombocytopenia Tension headache Breast lump on left side at 11 o'clock position Hypomagnesemia Miscarriage PTSD (post-traumatic stress disorder) Pancreatitis Surgical History S/P dilation and curettage H/O foot surgery Previous section Family History Mother Depression Anxiety Brother Depression Anxiety Denies family history of Ovarian cancer Prostate cancer Diabetes Myocardial infarction Breast cancer Colorectal cancer Hypertension Social History Smoking Status: Never smoker Second Hand Exposure: No; Do You Dip or Chew Tobacco: No; Hx Alcohol Use: Yes Alcohol type: hard liquor Hx Substance Use: Yes Last Used Substance: Days (ago) Substance Use Type Other:: meth + on drug screen, denies any drug use Preferred Language: Cymraes Communication Ability: Effective Visual Impairment: No Limitations Hearing Ability: Normal Debt Counselor Required: No Beliefs That Will Affect Care: None marital status: Current Living Situation: Family Current Living Situation Comment: mom, dad, son 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[employer] How many Children do You have: 1 Feels Safe at Home: Yes Safety Concerns: Feels Safe At This Time Childhood Exposure to Second-Hand Smoke: No Diet: regular Dental Care, Regularly: Yes Physical Activity Frequency: 5-6 Times per Week Seatbelt Use: always Sunscreen Use: Yes Assistive Devices: None Review of Systems Review of Systems: See HPI above Physical Exam Physical Exam: General: Anxious; tremors in the right hand; teary-eyed and emotional in the room; non-toxic appearing; cooperative; SpO2 97% on RA HEENT: normocephalic, atraumatic; no scleral icterus; PERRLA w/ EOMs intact; moist mucus membrane; vision and hearing grossly intact Neck: supple; no lymphadenopathy; trachea midline Skin: warm, dry without signs of tenting; no cyanosis; no rashes, bruising, lesions, or erythema noted CV: chest wall NTP; RR, tachycardic around 100 bpm; S1/S2 normal; no murmurs/rubs/gallops; pulses intact and symmetric at radial, DP, and PT Lungs: no acute respiratory distress; symmetrical chest wall expansion; clear breath sounds across all lung falcon w/o adventitious sounds; no wheezing ABD: Soft; RUQ is TTP; positive psoas sign; negative Rovsing sign; BS present; no rebound/guarding; no distention MSK: no tics or fasciculations; no edema noted in the LEs b/l, nonerythematous Neuro: A&Ox3; normal mood and affect; fluent speech; no focal deficits; sensation grossly intact in the UE/LEs b/l Results & Data Results & Data Vital Signs (Past 12 Hours) Vital Signs Temp Pulse Pulse Resp BP BP Pulse Ox 09/18/23 19:43 97 09/18/23 19:41 97 09/18/23 19:41 96 H 18 147/101 H 95 09/18/23 19:34 81 09/18/23 19:06 36.7 C 107 H 20 155/114 H 93 O2 Del Method 09/18/23 19:43 Room Air 09/18/23 19:41 Room Air 09/18/23 19:41 Room Air 09/18/23 19:34 09/18/23 19:06 Room Air Laboratory Results Abnormal lab results 09/18/23 09/18/23 Range/Units 19:07 19:22 Sodium 132 L (136-145) mmol/L Chloride 90 L (98-107) mmol/L Anion Gap 19 H (3-11) BUN/Creatinine Ratio 7.9 L (10-20) ALT 67 H (7-52) U/L Urine Appearance Turbid A (Clear) Urine Protein 2+ H (Negative) Urine Ketones 2+ H (Negative) Urine Blood 3+ H (Negative) Ur Leukocyte Esterase 2+ H (Negative) Urine WBC (Auto) >50 H (0-5) /hpf Urine RBC (Auto) >20 H (0-2) /hpf U Hyaline Cast (Auto) 11-20 H (0-2) /lpf U Epithel Cells (Auto) >20 H (0-2) /hpf Urine Bacteria (Auto) 3+ H (None Seen) ECG Additional Comments: EKG revealed NSR at 87 bpm; QTc 490; T wave inversions are now more evident in t he anterior leads when compared to prior EKGs Code Status & VTE Plan Code Status Full code VTE Prophylaxis Plan VTE Prophylaxis will be ordered: Yes Supervising Physician Co-Signing Physician Notes Attending addendum: I have physically seen this patient, have supervised the PÉREZ's activities, and agree with the H&P unless as otherwise noted. Assessment and Plan: Alcohol withdrawal/alcohol use disorder/abnormal LFTs- Similar presentation to previous admissions Alcohol level 224.7 Urine drug screen negative AWSS protocol with IV Ativan Thiamine 100 mg IV daily, first dose given in the ED Folic acid 1 mg IV daily, first dose given in the ED Diazepam 5 mg IV given in the ED AST 111, ALT 67, worse than previous laboratories, will follow serially in a.m. Lactic acidosis- Lactate 4.9 on admission, follow-up 3.5 Continue IV fluids and follow serially Treat urinary tract infection Abnormal EKG- New T wave inversions in leads V1 through 3 The patient will be admitted to telemetry for serial cardiac enzymes, serial EKG's, cardiac rhythm monitoring and a 2-D echocardiogram with Dopplers. Initial troponin 2.5 Suspect Takotsubo's Consult cardiology UTI- Follow urine culture and sensitivity Empiric ceftriaxone 2 g IV daily PG Care Time/CCT Total # of Minutes Spent Total Time Spent with Patient: Total time spent is greater than 50% in coordination of care (as documented) at patient's floor/unit and/or counseling patient: Coding [place] [address] INT INP/OBS CARE 3/75MIN Patient Type Established Medical Decision Making High Complexity Diagnoses Alcohol withdrawal F10.930 Complication of substance-induced condition: uncomplicated Abnormal EKG R94.31 Acute UTI N39.0 RUQ pain R10.11 Anxiety with depression F41.8 Acute hyponatremia E87.1 Hepatic steatosis K76.0 Alcoholic intoxication F10.929 History of seizure due to alcohol withdrawal Z87.898; Z86.59 PTSD (post-traumatic stress disorder) F43.10 (1) Alcohol withdrawal Complication of substance-induced condition: uncomplicated Qualified Code(s): F10.930 - Alcohol use, unspecified with withdrawal, uncomplicated
[2023-09-18 20:47] LABS: Potassium 3.8 mmol/L (3.5-5.1)
[2023-09-18] MEDS: FOLIC ACID 1 MG in SYRINGE 9.8 ML IV STA (20:49)
[2023-09-18] MEDS: THIAMINE HCL 100 MG in SYRINGE 9 ML IV STA (20:49)
[2023-09-18] MEDS ORDERED: Ativan IV Alcohol Withdrawal--Active Protocol IV PRN (20:59)
[2023-09-18 21:04] LABS: Troponin I High Sensitivity 2.5 pg/ml (0-14)
[2023-09-18 21:14] LABS: Amphetamines+Metham, Urine Neg (Neg); Barbiturates, Urine Neg (Neg); Benzodiazepine, Urine Neg (Neg); Cocaine, Urine Neg (Neg); Fentanyl, Urine Neg (Neg); MDMA (Ecstacy), Urine Neg (Neg); Marijuana, Urine Neg (Neg); Methadone, Urine Neg (Neg); Opiate, Urine Neg (Neg); Phencyclidine, Urine Neg (Neg)
--- NOTE | 2023-09-18 21:17 | Emergency Department Note ---
Impression & Plan Alcohol withdrawal, Alcohol abuse, Acute hyponatremia, Abnormal ECG ED Provider Note NAME: PHILLIP AMARO AGE: 38 SEX: F : 1985 ARRIVES VIA: Walk-In INFORMANT: Patient ED PROVIDER(S): Issa Villa DO CHIEF COMPLAINT: Detox HPI: Patient is a 38-year-old female with a past medical history of alcohol abuse, alcohol withdrawal and seizures secondary to withdrawal who presents the ER as she wants to detox. She notes that she for the past 2 weeks has been drinking 1/5 of vodka a day. She was drinking up to about 2 hours prior to coming in as she was trying to titrate down but noticed that she was getting the shakes so she drank more and consequently came in. She wants to stop drinking as she is concerned that if she keeps drinking she will eventually kill herself. She denies any headache. She admits to midsternal chest pain which has been present for several days. It is worse when you push on her chest. Denies any belly pain nausea vomiting or diarrhea. She notes she normally gets this chest pain when she stops drinking. ADDITIONAL HISTORY OBTAINED: Per HPI Chronic Medical/Social Conditions Affecting Care: Per HPI PAST MEDICAL HISTORY:See Below PAST SURGICAL HISTORY:See Below FAMILY HISTORY:See Below SOCIAL HISTORY:See Below HOME MEDICATIONS:See Below ALLERGIES:See Below VITALS:See Below PHYSICAL EXAMINATION: GENERAL: Sitting up in bed, alert, disheveled, shaky EYE EXAM: normal conjunctiva. OROPHARYNX: mucous membranes are moist LUNGS: Clear to auscultation. Normal chest wall mechanics HEART: no murmurs, S1 normal and S2 normal ABDOMEN: abdomen soft, non-tender, normo-active bowel sounds, no masses, no rebound or guarding. BACK: Back is symmetrical on inspection and there is no deformity, no midline tenderness, no CVA tenderness. SKIN: no rashes and no bruising UPPER EXTREMITIES: upper extremities are grossly normal. LOWER EXTREMITIES: No pitting edema. NEURO EXAM: Normal sensorium, cranial nerves II-XII grossly intact, normal speech, no gross weakness of arms, no gross weakness of legs. MEDICAL DECISION MAKING: Patient is a 38-year-old female who presents ER for the above-stated complaint. IV was established blood work was obtained. She was found to be hypertensive and a little tachycardic upon arrival. Labs show no significant leukocytosis or anemia. BMP with mild hyponatremia at 132. LFTs with a transaminitis which she has had previously. Troponin was negative with symptoms that been present for greater than 8 hours not indicative of ACS. hCG negative. UA contaminated. Tox was negative. Patient was given IV fluids and IV Valium. She was updated bedside. Discussed case with the hospitalist was admitted for further workup. She was given thiamine and folate as well. Consults/Care Managements Discussions: Per MDM Triage Nursing notes reviewed. Limited review of prior medical records performed Vital Signs: reviewed and remarkable for HTN Differential diagnosis: Differential diagnoses includes but is not limited to gastritis, peptic ulcer disease, GERD, gallbladder disease, pancreatitis, small bowel obstruction, appendicitis, diverticulitis, hernia, urinary tract infection, torsion, /ectopic (if female), perforation, trauma, infectious. ER treatment provided: See below Diagnostics interpreted by me include EKG and cardiac monitoring as listed below: -Cardiac Monitoring: An order was placed for continuous cardiac monitoring. The monitor shows a rate of 99 with sinus rhythm. -ECG: Sinus rhythm rate 87 Normal axis No PVCs QTc 490 T wave inversions V1 through V4 T wave versions are new in comparison to previous -Laboratory studies:Interpreted by me as stated above in MDM and shown below. Imaging studies: Xrays: As interpreted by me: Portable AP upright 1 view of the chest shows no focal CTs show: none Procedures:none Critical Care: None Past Med/Surg History Problem List (Updated 09/18/23 @ 21:32 by Jone Floyd PA-C) Abnormal EKG PTSD (post-traumatic stress disorder) Acute hyponatremia (Acute) Acute UTI Suprapubic discomfort (Acute) Mydriasis Methamphetamine intoxication Left lower quadrant abdominal pain Alcoholic intoxication Alcohol withdrawal (Acute) Seizure-like activity (Acute) Vomiting (Acute) Elevated liver transaminase level Hypokalemia History of seizure due to alcohol withdrawal (Acute) Elevated liver enzymes (Acute) Vomiting (Acute) Alcohol abuse (Acute) Hypomagnesemia (Acute) Alcohol withdrawal (Acute) Hypomagnesemia (Acute) Alcohol use disorder (Acute) Fall (Acute) GERD (gastroesophageal reflux disease) (Acute) Reflux gastritis Anxiety with depression B12 deficiency Depression (Acute) Reflux esophagitis Hepatic steatosis Medical History Seizure Hypophosphatemia Irritable bowel syndrome Hyponatremia Leukocytosis Elevated lactic acid level Alcoholic gastritis High anion gap metabolic acidosis Alcoholic ketoacidosis Alcohol withdrawal Alcoholic intoxication Sciatica Transaminitis Alcoholism Chest pain at rest History of intussusception Thrombocytopenia Tension headache Breast lump on left side at 11 o'clock position Hypomagnesemia Miscarriage PTSD (post-traumatic stress disorder) Pancreatitis Surgical History S/P dilation and curettage H/O foot surgery Previous section Family History Mother Depression Anxiety Brother Depression Anxiety Denies family history of Ovarian cancer Prostate cancer Diabetes Myocardial infarction Breast cancer Colorectal cancer Hypertension Social History Smoking Status: Never smoker Second Hand Exposure: No; Do You Dip or Chew Tobacco: No; Hx Alcohol Use: Yes Alcohol type: hard liquor Hx Substance Use: Yes Last Used Substance: Days (ago) Substance Use Type Other:: meth + on drug screen, denies any drug use Preferred Language: Wallisian Communication Ability: Effective Visual Impairment: No Limitations Hearing Ability: Normal Skin Fitter Required: No Beliefs That Will Affect Care: None marital status: Current Living Situation: Family Current Living Situation Comment: mom, dad, son 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[employer] IN [employer] How many Children do You have: 1 Feels Safe at Home: Yes Childhood Exposure to Second-Hand Smoke: No Diet: regular Dental Care, Regularly: Yes Physical Activity Frequency: 5-6 Times per Week Seatbelt Use: always Sunscreen Use: Yes Assistive Devices: None Allergies Allergies Allergy/AdvReac Type Severity Reaction Status Date / Time lactose AdvReac Intermediate GI DISTRESS Verified 07/19/23 00:18 Home Meds Home Medications Medication Instructions Recorded Confirmed mirtazapine 15 mg tablet 15 mg PO HS 01/15/22 09/18/23 duloxetine 60 mg capsule,delayed 60 mg PO QAM 04/29/22 09/18/23 release gabapentin 300 mg capsule 300 mg PO TID 05/23/22 09/18/23 folic acid 1 mg tablet 1 mg PO DAILY 10/16/22 09/18/23 prazosin 1 mg capsule 3 mg PO HS 03/14/23 09/18/23 buspirone 10 mg tablet 10 mg PO TID 04/29/23 09/18/23 docusate sodium 100 mg capsule 100 mg PO UD PRN Constipation 09/18/23 09/18/23 hydroxyzine HCl 25 mg tablet 25 mg PO QID PRN Anxiety 09/18/23 09/18/23 multivitamin-iron 9 mg-folic acid 1 tab PO DAILY 09/18/23 09/18/23 400 mcg-calcium and minerals tablet Previous Rx's Medication Instructions Recorded propranolol 10 mg tablet 10 mg PO BID #30 tabs 11/11/22 lorazepam 1 mg tablet 1 mg PO Q6H PRN withdrawal 08/21/23 symptoms #5 tabs Results & Data (ED) Vital Signs Vital Signs - 24 hr 09/18/23 19:06 09/18/23 19:34 09/18/23 19:41 Temperature 36.7 C Temperature Source Temporal Artery Scan Pulse Rate 107 H 81 Pulse Rate [Apical] 96 H Pulse Rhythm Regular Pulse Strength Normal Respiratory Rate 20 18 Respiratory Effort / Characteristics Non-Labored Spontaneous Respiratory Depth Normal Blood Pressure 155/114 H Blood Pressure [Left Arm] 147/101 H Blood Pressure Mean 127 Blood Pressure Mean [Left Arm] 116 Blood Pressure Position Sitting Pulse Oximetry 93 95 Oxygen Delivery Method Room Air Room Air Sepsis Recent Fever Within 48 Hours No Sepsis New/Unexplained Change in Mental Status N/A Sepsis Action Taken by Nursing No Action Required 09/18/23 19:41 09/18/23 19:43 09/18/23 21:39 Temperature 37.0 C Temperature Source Oral Pulse Rate Pulse Rate [Apical] 106 H Pulse Rhythm Pulse Strength Respiratory Rate 18 Respiratory Effort / Characteristics Respiratory Depth Blood Pressure Blood Pressure [Left Arm] 131/91 Blood Pressure Mean Blood Pressure Mean [Left Arm] 104 Blood Pressure Position Pulse Oximetry 97 97 98 Oxygen Delivery Method Room Air Room Air Room Air Sepsis Recent Fever Within 48 Hours Sepsis New/Unexplained Change in Mental Status Sepsis Action Taken by Nursing Laboratory Data 09/18/23 19:22 09/18/23 20:19 Lab Results 09/18/23 09/18/23 09/18/23 Range/Units 19:07 19:22 20:19 WBC 7.78 (4.8-10.8) K/ul RBC 4.33 (4.20-5.40) M/uL Hgb 13.7 (12.0-16.0) g/dl Hct 39.0 (37.0-47.0) % MCV 90.1 (80.0-100.0) fL MCH 31.6 (25.0-34.0) pg MCHC 35.1 (32.0-36.0) g/dL RDW Std Deviation 45.1 (36.4-46.3) fL RDW Coeff of Dallin 13.8 (11.5-14.5) % Plt Count 288 (130-400) K/uL MPV 11.1 (9.4-12.4) fL Immature Gran % (Auto) 0.4 % Neut % (Auto) 65.9 % Lymph % (Auto) 26.9 % Hart % (Auto) 5.4 % Eos % (Auto) 0.4 % Baso % (Auto) 1.0 % Neut # (Auto) 5.13 (1.40-6.50) K/uL Lymph # (Auto) 2.09 (1.20-3.40) K/uL Hart # (Auto) 0.42 (0.11-0.59) K/uL Eos # (Auto) 0.03 (0.00-0.50) K/uL Baso # (Auto) 0.08 (0.00-0.20) K/uL Immature Gran # (Auto) 0.03 (0.01-0.20) K/uL Sodium 132 L (136-145) mmol/L Potassium TNP 3.8 Chloride 90 L (98-107) mmol/L Carbon Dioxide 23 (21-32) mmol/L Anion Gap 19 H (3-11) BUN 6 (6-23) mg/dl Creatinine 0.76 (0.6-1.2) mg/dl Est Cr Clr Drug Dosing 117.3 ml/min Est GFR ( Amer) 114.5 ml/min Est GFR (Non-Af Amer) 98.8 ml/min BUN/Creatinine Ratio 7.9 L (10-20) Glucose 97 (70-99(Fasting)) mg/dl Calcium 9.7 (8.6-10.3) mg/dl Magnesium 1.8 (1.7-2.4) mg/dl Total Bilirubin 0.6 (0.2-1.0) mg/dl AST TNP 111 H ALT 67 H (7-52) U/L Alkaline Phosphatase 69 (34-104) U/L Troponin I High Sens 2.5 (0-14) pg/ml Total Protein 8.0 (6.0-8.3) gm/dl Albumin 5.0 (3.4-5.0) gm/dl Globulin 3.0 (2.5-4.0) gm/dl Albumin/Globulin Ratio 1.7 (0.9-2) Lipase 30 (11-82) U/L HCG, Qual Negative (Negative) Urine Color Dark Yellow Urine Appearance Turbid A (Clear) Urine pH 6.0 (4.5-7.5) Ur Specific Stow 1.024 (1.000-1.030) Urine Protein 2+ H (Negative) Urine Glucose (UA) Negative (Negative) Urine Ketones 2+ H (Negative) Urine Blood 3+ H (Negative) Urine Nitrite Negative (Negative) Urine Bilirubin Negative (Negative) Urine Urobilinogen Negative (Negative) Ur Leukocyte Esterase 2+ H (Negative) Urine WBC (Auto) >50 H (0-5) /hpf Urine RBC (Auto) >20 H (0-2) /hpf U Hyaline Cast (Auto) 11-20 H (0-2) /lpf U Epithel Cells (Auto) >20 H (0-2) /hpf Urine Bacteria (Auto) 3+ H (None Seen) Urine Opiates Screen Neg (Neg) Ur Methadone, Qual Neg (Neg) Urine Fentanyl Screen Neg (Neg) Urine Barbiturates Neg (Neg) Ur Phencyclidine (PCP) Neg (Neg) U Amphetamin/Meth Scrn Neg (Neg) MDMA (Ecstasy) Screen Neg (Neg) U Benzodiazepines Scrn Neg (Neg) Ur Cocaine Metabolite Neg (Neg) U Marijuana (THC) Screen Neg (Neg) Administered Medications Ceftriaxone Sodium (Rocephin) 2,000 mg in 50 mls @ 100 mls/hr IV NOW STA Stop: 09/18/23 21:53 Last Admin: 09/18/23 21:37 Dose: 100 mls/hr Documented By: JAYESH Discontinued Medications Diazepam (Diazepam 5 Mg/Ml 10ml Vial) 5 mg IV NOW STA Stop: 09/18/23 19:46 Last Admin: 09/18/23 20:04 Dose: 5 mg Documented By: JAYESH Thiamine HCl 100 mg/ Syringe 10 mls @ 2 mls/min IV NOW STA Stop: 09/18/23 19:35 Last Admin: 09/18/23 20:49 Dose: 2 mls/min Documented By: JAYESH Folic Acid 1 mg/ Syringe 10 mls @ 5 mls/min IV NOW STA Stop: 09/18/23 19:32 Last Admin: 09/18/23 20:49 Dose: 5 mls/min Documented By: JAYESH Discharge Plan Visit Data Chief Complaint: Detox Request Stated Complaint: ALCOHOL WITHDRAWAL, VOMIT, CHEST PAINS, TREMOR ED Provider: Issa Villa Discharge Problem: Alcohol withdrawal, Alcohol abuse, Acute hyponatremia, Abnormal ECG Forms Stand Alone Forms: [facility], Suicide Prevention Resources Prescriptions Prescriptions: No Action duloxetine 60 mg capsule,delayed release(DR/EC) 60 mg PO QAM propranolol 10 mg tablet 10 mg PO BID Qty: 30 6RF mirtazapine 15 mg tablet 15 mg PO HS gabapentin 300 mg capsule 300 mg PO TID buspirone 10 mg Tablet 10 mg PO TID folic acid 1 mg tablet 1 mg PO DAILY prazosin 1 mg capsule 3 mg PO HS lorazepam 1 mg tablet 1 mg PO Q6H PRN (Reason: withdrawal symptoms) Qty: 5 0RF hydroxyzine HCl 25 mg tablet 25 mg PO QID PRN (Reason: Anxiety) Therems-M 9 mg iron-400 mcg tablet 1 tab PO DAILY docusate sodium 100 mg capsule 100 mg PO UD PRN (Reason: Constipation) Referrals Referrals: ASHLEY NOEL [Other] Discharge Problem: Alcohol withdrawal Qualifiers: Complication of substance-induced condition: with unspecified complication Q ualified Code(s): F10.939 - Alcohol use, unspecified with withdrawal, unspecified
[2023-09-18 21:20] LABS: Magnesium 1.8 mg/dl (1.7-2.4)
[2023-09-18] MEDS: cefTRIAXone SODIUM 2,000 MG/50 ML BAG IV STA (21:37)
[2023-09-18] MEDS: MAGNESIUM SULFATE / D5W 1 GM/100 ML BAG IV ONE (21:54)
[2023-09-18] MEDS: LORazepam 2 MG in SYRINGE 1 ML IV PRN (22:07)
[2023-09-18] MEDS ORDERED: DOCUSATE SODIUM 100 MG CAP PO PRN (22:21)
[2023-09-18] MEDS: OPTIRAY 320 100ml IV ONE (22:43)
[2023-09-18] MEDS: METOPROLOL SUCC 25MG EXT REL TAB PO STA (23:19)
[2023-09-18] MEDS: PLASMA-LYTE A 1,000 ML IV SCH (23:20)
[2023-09-18] MEDS: LORazepam 1 MG in SYRINGE 0.5 ML IV PRN (23:34)
--- NOTE | 2023-09-18 23:53 | XRay Report ---
SINGLE VIEW CHEST CLINICAL HISTORY: Vomiting. FINDINGS: An AP, portable, upright chest radiograph is compared to study dated 08/18/2023. The cardiom ediastinal silhouette is unremarkable. The lungs and pleural spaces are clear. No pneumothorax is see n. The bony thorax is grossly intact. IMPRESSION: No active disease in the chest. ACT 112: Negative or not required by law. Electronically signed by: Todd Espinosa M.D. 09/18/2023 11:51 PM
--- NOTE | 2023-09-19 01:41 | CT Scan Report ---
Exam(s): CT ABDOMEN + PELVIS With Contrast IV Amt: 93 cc opti 320 EXAM: CT Abdomen and Pelvis With Intravenous Contrast CLINICAL HISTORY: Reason for exam: RUQ pain. TECHNIQUE: Axial computed tomography images of the abdomen and pelvis with intravenous contrast. CTDI is 24.97 mGy and DLP is 1300.67 mGy-cm. Automated exposure control was utilized for the study. A dose lowering technique was utilized adhering to the principles of ALARA. CONTRAST: Patient received 93 cc opti 320 of IV contrast COMPARISON: No relevant prior studies available. FINDINGS: Lung bases: Unremarkable. No mass. No consolidation. ABDOMEN: Liver: Hepatic steatosis. Gallbladder and bile ducts: Unremarkable. No calcified stones. No ductal dilation. Normal gallbladder. Pancreas: Unremarkable. No mass. No ductal dilation. Spleen: Unremarkable. No splenomegaly. Adrenals: Unremarkable. No mass. Kidneys and ureters: Unremarkable. No hydronephrosis or delayed nephrogram. Stomach and bowel: Moderate fecal retention, correlate for constipation. No bowel obstruction. No free air. No mucosal thickening. PELVIS: Appendix: No findings to suggest acute appendicitis. Bladder: Unremarkable. Normal urinary bladder. Reproductive: Unremarkable as visualized. ABDOMEN and PELVIS: Intraperitoneal space: See above. Bones/joints: Bilateral pars defect at L5. No acute fracture. No dislocation. Soft tissues: Unremarkable. Vasculature: Unremarkable. No abdominal aortic aneurysm. Lymph nodes: Unremarkable. No enlarged lymph nodes. IMPRESSION: No acute findings in the abdomen or pelvis. Electronically signed by: Thang Mattson MD 09/19/23 01:40 AM
[2023-09-19] MEDS: ACETAMINOPHEN 325 MG TAB PO PRN (06:21)
[2023-09-19] MEDS ORDERED: FOLIC ACID 1 MG TAB PO SCH (09:00)
[2023-09-19] MEDS: FOLIC ACID 1 MG TAB PO SCH (09:23)
[2023-09-19] MEDS: chlordiazePOXIDE HCl 25 MG CAP PO ONE (09:23)
[2023-09-19] MEDS: DULoxetine HCL 60 MG CAP PO SCH (09:23)
[2023-09-19] MEDS: METOPROLOL SUCC 25MG EXT REL TAB PO SCH (09:23)
[2023-09-19] MEDS: busPIRone 5 MG TAB PO SCH (09:23)
[2023-09-19] MEDS: GABAPENTIN 600 MG TAB PO SCH (09:23)
[2023-09-19] MEDS: THIAMINE HCL 100 MG TAB PO SCH (09:23)
[2023-09-19] MEDS: LORazepam 3 MG in SYRINGE 1.5 ML IV PRN (09:24)
[2023-09-19 09:52] LABS: Basophils # (auto) 0.06 K/uL (0.00-0.20); Basophils % (auto) 0.8 %; Eosinophils # (auto) 0.13 K/uL (0.00-0.50); Eosinophils % (auto) 1.6 %; Hematocrit (blood only) 37.1 % (37.0-47.0); Hemoglobin 12.8 g/dl (12.0-16.0); Immature Granulocytes # (auto) 0.02 K/uL (0.01-0.20); Immature Granulocytes % (auto) 0.3 %; Lymphocytes # (auto) 2.47 K/uL (1.20-3.40); Lymphocytes % (auto) 31.3 %; Mean Corpuscular Hemoglobin 31.4 pg (25.0-34.0); Mean Corpuscular Hgb Conc 34.5 g/dL (32.0-36.0); Mean Corpuscular Volume 91.2 fL (80.0-100.0); Monocytes # (auto) 0.43 K/uL (0.11-0.59); Monocytes % (auto) 5.4 %; Neutrophils # (auto) 4.78 K/uL (1.40-6.50); Neutrophils % (auto) 60.6 %; Platelet Count 223 K/uL (130-400); RDW Coefficient of Variation 14.1 % (11.5-14.5); RDW Standard Deviation 47.2 fL (36.4-46.3); Red Blood Count 4.07 M/uL (4.20-5.40); White Blood Count 7.89 K/ul (4.8-10.8)
[2023-09-19] MEDS: chlordiazePOXIDE HCl 25 MG CAP PO SCH ×2 (09:54→21:03)
[2023-09-19 10:13] LABS: BUN Creatinine Ratio 8.8 (10-20); Blood Urea Nitrogen 7 mg/dl (6-23); Carbon Dioxide 26 mmol/L (21-32); Chloride 93 mmol/L (98-107); Creatinine Clr Calc Pharmacy 115.6 ml/min; Est GFR (African American) 107.6 ml/min; Est GFR (Non-African American) 92.9 ml/min; Glucose 66 mg/dl (70-99(Fasting))
--- NOTE | 2023-09-19 10:59 | Electrocardiogram Report ---
Test Reason : Blood Pressure : / mmHG Vent. Rate : 087 BPM Atrial Rate : 087 BPM P-R Int : 130 ms QRS Dur : 082 ms QT Int : 408 ms P-R-T Axes : 053 024 016 degrees QTc Int : 490 ms Normal sinus rhythm Prolonged QT Abnormal ECG When compared with ECG of 18-AUG-2023 13:55, T wave inversion more evident in Anterior leads Confirmed by James Sheikh ([id number]) on 09/19/2023 10:58:54 AM Referred By: REFERRED SELF Confirmed By:James Sheikh
--- NOTE | 2023-09-19 11:14 | XCELERA ---
[id number]
[2023-09-19 13:09] LABS: Magnesium 2.1 mg/dl (1.7-2.4); Potassium 3.5 mmol/L (3.5-5.1)
[2023-09-19] MEDS ORDERED: chlordiazePOXIDE HCl 25 MG CAP PO SCH (14:00)
--- NOTE | 2023-09-19 15:24 | Cardiology Consultation ---
Date of Consultation September 19, 2023 Assessment & Plan (1) Chest pain syndrome: -symptoms are atypical for classic angina pectoris. -she does have an anterior T-wave abnormality which has been noted previously. -recommend a stress echocardiogram once alcohol withdrawal completed. (2) Abnormal EKG: -as above. (3) Alcohol withdrawal: -management per hospitalist team. History of Present Illness Attending Physician: Issa Ma DO History of Present Illness Mrs. Ybarra is a 38-year-old female admitted yesterday with alcohol intoxication and a chest pain syndrome. This consultation was ordered to assist in her management. At the time of her admission, the patient explained that she needed alcohol detoxification. She had also noticed upper sternal chest discomfort which has been constant in nature for approximately 24-36 hours. She explains that does increase with physical activity. There was no concurrent shortness of breath, nausea, vomiting, or diaphoresis. She has noticed this same symptom complex at other times when she goes through withdrawal. She has never known cardiac event. She has never had a cardiac catheterization. She did a stress echocardiogram the past which was reportedly normal. Currently, patient is resting comfortably in bed without complaints. She has a difficult time staying awake during our interview. Past medical and surgical history 1. Alcohol use disorder 2. History of alcohol withdrawal 3. Seizure disorder 4. GERD 5. Anxiety/depression 6. PTSD 7. D&C 8. Social history , lives with her parents and his son No tobacco Significant alcohol intake Family history Parents are alive and well. No early coronary artery disease. Review of systems A 10 point review of systems was undertaken and negative except for that described above. Allergies Allergy/AdvReac Type Severity Reaction Status Date / Time lactose AdvReac Intermediate GI DISTRESS Verified 07/19/23 00:18 Home Medications Medication Instructions Recorded Confirmed Type mirtazapine 15 mg tablet 15 mg PO HS 01/15/22 09/18/23 History duloxetine 60 mg capsule,delayed 60 mg PO QAM 04/29/22 09/18/23 History release gabapentin 300 mg capsule 300 mg PO TID 05/23/22 09/18/23 History folic acid 1 mg tablet 1 mg PO DAILY 10/16/22 09/18/23 History propranolol 10 mg tablet 10 mg PO BID #30 tabs 11/11/22 09/18/23 Rx prazosin 1 mg capsule 3 mg PO HS 03/14/23 09/18/23 History buspirone 10 mg tablet 10 mg PO TID 04/29/23 09/18/23 History lorazepam 1 mg tablet 1 mg PO Q6H PRN withdrawal 08/21/23 09/18/23 Rx symptoms #5 tabs docusate sodium 100 mg capsule 100 mg PO UD PRN Constipation 09/18/23 09/18/23 History hydroxyzine HCl 25 mg tablet 25 mg PO QID PRN Anxiety 09/18/23 09/18/23 History multivitamin-iron 9 mg-folic acid 1 tab PO DAILY 09/18/23 09/18/23 History 400 mcg-calcium and minerals tablet Patient History Medical History Seizure Hypophosphatemia Irritable bowel syndrome Hyponatremia Leukocytosis Elevated lactic acid level Alcoholic gastritis High anion gap metabolic acidosis Alcoholic ketoacidosis Alcohol withdrawal Alcoholic intoxication Sciatica Transaminitis Alcoholism Chest pain at rest History of intussusception Thrombocytopenia Tension headache Breast lump on left side at 11 o'clock position Hypomagnesemia Miscarriage PTSD (post-traumatic stress disorder) Pancreatitis Surgical History S/P dilation and curettage H/O foot surgery Previous section Family History Mother Depression Anxiety Brother Depression Anxiety Denies family history of Ovarian cancer Prostate cancer Diabetes Myocardial infarction Breast cancer Colorectal cancer Hypertension Social History Smoking Status: Never smoker Second Hand Exposure: No; Do You Dip or Chew Tobacco: No; Hx Alcohol Use: Yes Alcohol type: hard liquor Hx Substance Use: Yes Last Used Substance: Days (ago) Substance Use Type Other:: meth + on drug screen, denies any drug use Preferred Language: Cuban Communication Ability: Effective Visual Impairment: No Limitations Hearing Ability: Normal Family Dentist Required: No Beliefs That Will Affect Care: None marital status: Current Living Situation: Family Current Living Situation Comment: mom, dad, son 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[employer] IN [employer] How many Children do You have: 1 Feels Safe at Home: Yes Safety Concerns: Feels Safe At This Time Childhood Exposure to Second-Hand Smoke: No Diet: regular Dental Care, Regularly: Yes Physical Activity Frequency: 5-6 Times per Week Seatbelt Use: always Sunscreen Use: Yes Assistive Devices: None Physical Exam Physical Exam: In general this is a well-developed well-nourished white female in no acute distress. HEENT exam is negative. Neck is supple with full carotid upstrokes. There are no carotid bruits. Jugular venous pressure is flat at 90. There is no thyromegaly. Cardiovascular exam reveals a regular rhythm with a normal S1 and S2. No S3, S4, or murmurs are noted. Lungs are clear without rales, rhonchi, or wheezes. Abdomen is soft and nontender without bruits. Extremities reveal intact radial artery and posterior tibial pulses bilaterally. There is no peripheral edema. Results & Data Vital Signs (Past 12 Hours) Vital Signs Temp Pulse Resp BP Pulse Ox O2 Del Method 09/19/23 11:30 36.9 C 88 14 122/76 97 Room Air 09/19/23 07:50 36.7 C 91 H 22 148/65 H 98 Room Air 09/19/23 06:01 36.8 C 113 H 18 156/82 H 99 Room Air Laboratory Results High sensitivity troponin is normal at 2.5 Diagnostic Findings Echocardiogram notes normal left ventricular systolic function without wall motion abnormalities. Left ventricular ejection fraction of 60-65%. There was no valvular pathology. EKG notes normal sinus rhythm and an anterior T-wave abnormality. PG Care Time/CCT Total # of Minutes Spent Total Time Spent with Patient: Total time spent is greater than 50% in coordination of care (as documented) at patient's floor/unit and/or counseling patient: Coding Level of Care Code 66254 IN/OBS CONSULT LVL 4,60M Diagnoses Chest pain syndrome R07.9 Abnormal EKG R94.31 Alcohol withdrawal F10.939 Complication of substance-induced condition: with unspecified complication (3) Alcohol withdrawal Complication of substance-induced condition: with unspecified complication Qualified Code(s): F10.939 - Alcohol use, unspecified with withdrawal, unspecified
--- NOTE | 2023-09-19 19:48 | Hospitalist Progress Note ---
Date of Service September 19, 2023 Assessment & Plan (1) Alcohol withdrawal: Plan: Patient has ongoing struggles with alcohol abuse and frequent withdrawal. She tends to drink to medicate for depression/PTSD. She has done well with exercise in the past, but also while she does not carry a diagnosis of POTS, she does show a trend in that direction with easy lightheadedness and tachycardiaparticularly if she is a bit dehydratedwhich then compounds the problem because if she is drinking at all she is going to be a bit dry which makes her feel worse when she tries to exercise which makes it hard for her to use exercise for depression/PTSD management. She does have a supportive family. Librium, symptom triggered Ativan (Librium given that she was needing quite a bit of Ativan) ongoing counseling and supportive care (2) Abnormal EKG: Plan: appreciate cardiology input, echocardiogram reassuring, troponins normal. Anticipate stress echo for completeness in the near future. (3) Acute UTI: Plan: Clinically, patient endorses burning with urination and suprapubic tenderness Ceftriaxone 2000 mg IV q24h (4) RUQ pain: Plan: CT scan shows fatty liver, but without a true alcoholic hepatitis, I doubt that is the cause of her pain. She does have a significant amount of stool, fair amount of which is right-sidedI wonder if this is the culprit. Continue to follow. (5) Anxiety with depression: Plan: Patient reports cycles of binging alcohol are secondary to her history of PTSD Continue BuSpar, duloxetine, mirtazapine, and prazosin (6) Acute hyponatremia: Plan: Very mild (7) Hepatic steatosis: (8) History of seizure due to alcohol withdrawal: (9) PTSD (post-traumatic stress disorder): Plan continue on PCU, alcohol withdrawal protocol, supportive care. Ambulation for DVT prophylaxisadd pharmacologic if she were to have prolonged stay or prolonged immobility. Admission and Anticipated Discharge Date Admission Date: September 18, 2023 Subjective patient sleeping whenever I saw her. Later discussed with nursingsome ongoing withdrawal symptoms medicated with benzodiazepines. Appreciate cardiology input. Physical Exam Physical Exam: Sleeping comfortably whenever I saw her. Breathing unlabored no accessory muscle use good effort. Skin without rashes pallor or icterus. Results & Data Results & Data Vital Signs (Past 12 Hours) Vital Signs Temp Pulse Resp BP Pulse Ox O2 Del Method 09/19/23 15:47 98.1 F 89 21 122/86 96 Room Air 09/19/23 11:30 98.4 F 88 14 122/76 97 Room Air 09/19/23 07:50 98.1 F 91 H 22 148/65 H 98 Room Air PG Care Time/CCT Total # of Minutes Spent Total Time Spent with Patient: Total time spent is greater than 50% in coordination of care (as documented) at patient's floor/unit and/or counseling patient: Coding Level of Care Code 80546 SUB INP/OBS CARE 04/24MIN Diagnoses Alcohol withdrawal F10.939 Complication of substance-induced condition: with unspecified complication Abnormal EKG R94.31 Acute UTI N39.0 RUQ pain R10.11 Anxiety with depression F41.8 Acute hyponatremia E87.1 Hepatic steatosis K76.0 History of seizure due to alcohol withdrawal Z87.898; Z86.59 PTSD (post-traumatic stress disorder) F43.10 (1) Alcohol withdrawal Complication of substance-induced condition: with unspecified complication Qualified Code(s): F10.939 - Alcohol use, unspecified with withdrawal, unspecified
[2023-09-19] MEDS: MIRTAZAPINE TAB 15 MG TAB PO SCH (20:57)
[2023-09-19] MEDS: PRAZOSIN HCL 1 MG CAP PO SCH (20:58)
[2023-09-19] MEDS: cefTRIAXone SODIUM 2,000 MG/50 ML BAG IV SCH (21:04)
[2023-09-20 05:48] LABS: Basophils # (auto) 0.02 K/uL (0.00-0.20); Basophils % (auto) 0.4 %; Eosinophils # (auto) 0.19 K/uL (0.00-0.50); Eosinophils % (auto) 3.7 %; Hematocrit (blood only) 35.1 % (37.0-47.0); Hemoglobin 11.9 g/dl (12.0-16.0); Immature Granulocytes # (auto) 0.01 K/uL (0.01-0.20); Immature Granulocytes % (auto) 0.2 %; Lymphocytes # (auto) 1.87 K/uL (1.20-3.40); Lymphocytes % (auto) 36.5 %; Mean Corpuscular Hemoglobin 31.7 pg (25.0-34.0); Mean Corpuscular Hgb Conc 33.9 g/dL (32.0-36.0); Mean Corpuscular Volume 93.6 fL (80.0-100.0); Mean Platelet Volume 11.4 fL (9.4-12.4); Monocytes # (auto) 0.32 K/uL (0.11-0.59); Monocytes % (auto) 6.3 %; Neutrophils # (auto) 2.71 K/uL (1.40-6.50); Neutrophils % (auto) 52.9 %; Platelet Count 168 K/uL (130-400); RDW Coefficient of Variation 13.7 % (11.5-14.5); Red Blood Count 3.75 M/uL (4.20-5.40); White Blood Count 5.12 K/ul (4.8-10.8)
[2023-09-20 06:01] LABS: BUN Creatinine Ratio 11.1 (10-20); Calcium 8.6 mg/dl (8.6-10.3); Creatinine Clr Calc Pharmacy 128.4 ml/min; Est GFR (African American) 122.3 ml/min; Est GFR (Non-African American) 105.5 ml/min; Potassium 3.3 mmol/L (3.5-5.1)
[2023-09-20] MEDS: POTASSIUM CHLORIDE CRTAB 20 MEQ TABCR PO STA (08:51)
[2023-09-20] MEDS: POTASSIUM CHLORIDE CRTAB 20 MEQ TABCR PO SCH (08:51)
--- NOTE | 2023-09-20 14:18 | Hospitalist Progress Note ---
Date of Service September 20, 2023 Assessment & Plan (1) Alcohol withdrawal: Plan: Frequent hospitalizations for detox/withdrawal Reason for use is PTSD self-medication Continue Librium at current dose, symptom triggered ativan Plan to continue counseling, Vivitrol outpatient Set up IOP prior to discharge (2) Abnormal EKG: Plan: appreciate cardiology input echocardiogram reassuring troponins normal stress echo as outpatient once w/d complete (3) Acute UTI: Plan: Clinically, patient endorses burning with urination and suprapubic tenderness GBS growing in urine dc ceftriaxone two days received amoxicillin 500mg TID x 5-7 days total (4) RUQ pain: Plan: CT scan shows fatty liver, without alcoholic hepatitis significant stool burden, r-sided continue to monitor (5) Anxiety with depression: Plan: Patient reports cycles of binging alcohol are secondary to her history of PTSD Continue BuSpar, duloxetine, mirtazapine, and prazosin (6) Acute hyponatremia: Plan: Very mild improving (7) Hepatic steatosis: (8) History of seizure due to alcohol withdrawal: (9) PTSD (post-traumatic stress disorder): Plan FENGI: regular Code status: full DVT prophylaxis: encourage ambulation Isolation: none Disposition: PCU Admission and Anticipated Discharge Date Admission Date: September 18, 2023 Supervising Physician Co-Signing Physician Notes Attending Physician Supervision Note: I independently interviewed and examined the patient and verified the méndez history and physical, reviewed labs and image studies and agree with findings and care plan noted above. Alcohol withdrawal/alcohol use disorder/abnormal LFTs- Similar presentation to previous admissions Alcohol level 224.7 Urine drug screen negative AWSS protocol with IV Ativan; scheduled librium 100mgs tid added - with resulting improvement. Thiamine 100 mg IV daily, first dose given in the ED Folic acid 1 mg IV daily, first dose given in the ED follow labs in am re-establish naltrexone on discharge (stayed sober while on it) UTI- Group B strep Amoxicillin q8hrs. Lactic acidosis- likely from severe alc intoxication and uti. received fluid resuscitation and IV abx. Abnormal EKG- New T wave inversions in leads V1 through 3 Seen by cardio - for outpatient stress echo. Subjective Patient seen and evaluated at bedside this morning. No acute events overnight. Remains tremulous, receiving PRN ativan doses on top of 100mg Librium TID. Has a court date Friday, will need letter. Expresses interest in continuing Vivitrol, re-establishing with therapy re:PTSD, IOP at discharge. Otherwise, no complaints this AM Review of Systems Review of Systems: reviewed, per HPI Physical Exam Physical Exam: Constitutional: well-appearing, no acute distress HEENT: NCAT, no conjunctival injection CV: extremities well-perfused, no LE edema Resp: no increased work of breathing MSK: no gross deformities appreciated Skin: warm, dry, no rash appreciated Neuro: alert, oriented, no focal neurologic deficit appreciated Results & Data Results & Data Vital Signs (Past 12 Hours) Vital Signs Temp Pulse Resp BP Pulse Ox O2 Del Method 09/20/23 11:13 36.6 C 77 23 114/79 94 Room Air 09/20/23 08:02 36.5 C 91 H 23 123/81 95 Room Air 09/20/23 04:29 36.9 C 77 16 122/80 90 Room Air Resident Activity Tracking Resident Involvement: Resident Care Provided Care Provided: Adult Hospital Medicine (1) Alcohol withdrawal Complication of substance-induced condition: with unspecified complication Qualified Code(s): F10.939 - Alcohol use, unspecified with withdrawal, unspecified
[2023-09-20] MEDS: AMOXICILLIN 500 MG CAP PO SCH (21:43)
[2023-09-21 06:33] LABS: Basophils # (auto) 0.02 K/uL (0.00-0.20); Basophils % (auto) 0.4 %; Eosinophils # (auto) 0.25 K/uL (0.00-0.50); Eosinophils % (auto) 5.2 %; Hematocrit (blood only) 35.9 % (37.0-47.0); Hemoglobin 11.7 g/dl (12.0-16.0); Immature Granulocytes # (auto) 0.01 K/uL (0.01-0.20); Immature Granulocytes % (auto) 0.2 %; Lymphocytes # (auto) 2.05 K/uL (1.20-3.40); Lymphocytes % (auto) 42.3 %; Mean Corpuscular Hemoglobin 31.3 pg (25.0-34.0); Mean Corpuscular Hgb Conc 32.6 g/dL (32.0-36.0); Mean Platelet Volume 11.7 fL (9.4-12.4); Monocytes # (auto) 0.29 K/uL (0.11-0.59); Neutrophils # (auto) 2.23 K/uL (1.40-6.50); Neutrophils % (auto) 45.9 %; Platelet Count 148 K/uL (130-400); RDW Standard Deviation 49.1 fL (36.4-46.3); Red Blood Count 3.74 M/uL (4.20-5.40); White Blood Count 4.85 K/ul (4.8-10.8)
[2023-09-21 07:03] LABS: Albumin Globulin Ratio 1.6 (0.9-2); Albumin Level 3.5 gm/dl (3.4-5.0); BUN Creatinine Ratio 8.8 (10-20); Bilirubin,Total 0.4 mg/dl (0.2-1.0); Calcium 8.7 mg/dl (8.6-10.3); Creatinine Clr Calc Pharmacy 118.6 ml/min; Est GFR (African American) 107.6 ml/min; Est GFR (Non-African American) 92.9 ml/min; Globulin 2.2 gm/dl (2.5-4.0); Total Protein 5.7 gm/dl (6.0-8.3)
[2023-09-21] MEDS: chlordiazePOXIDE HCl 25 MG CAP PO SCH (14:15)
--- NOTE | 2023-09-21 14:52 | Hospitalist Progress Note ---
Date of Service September 21, 2023 Assessment & Plan (1) Alcohol withdrawal: (2) History of seizure due to alcohol withdrawal: Plan: Frequent hospitalizations for detox/withdrawal Reason for use is PTSD self-medication Alcohol level 224.7 Thiamine 100 mg IV daily, first dose given in the ED Folic acid 1 mg IV daily, first dose given in the ED Will start weaning librium - to 75mgs tid. continue symptom triggered ativan (3) Severe alcohol use disorder: Plan: Plan to continue counseling, Vivitrol outpatient Set up IOP prior to discharge (4) Abnormal EKG: Plan: New T wave inversions in leads V1 through 3 appreciate cardiology input echocardiogram reassuring troponins normal stress echo as outpatient once w/d complete (5) Acute UTI: Plan: Clinically, patient endorses burning with urination and suprapubic tenderness GBS growing in urine dc ceftriaxone two days received amoxicillin 500mg TID x 5-7 days total (6) RUQ pain: (7) Hepatic steatosis: Plan: CT scan shows fatty liver, without alcoholic hepatitis significant stool burden, r-sided pain resolved. (8) PTSD (post-traumatic stress disorder): (9) Anxiety with depression: Plan: Patient reports cycles of binging alcohol are secondary to her history of PTSD Continue BuSpar, duloxetine, mirtazapine, and prazosin Plan FENGI: regular Code status: full DVT prophylaxis: encourage ambulation Isolation: none Disposition: PCU Admission and Anticipated Discharge Date Admission Date: September 18, 2023 Subjective feeling much better today. sleeping but the tremulousness is better no fever. eating well. Physical Exam Constitutional: WD/WN, vitals as above Respiratory: no resp distress Cardiovascular: normal heart rate Gastrointestinal (Abdomen): normal bowel sounds, soft, nontender, no hepatosplenomegaly Psychiatric: A+Ox3, euthymic affect Results & Data Results & Data Vital Signs (Past 12 Hours) Vital Signs Temp Pulse Pulse Resp BP Pulse Ox O2 Del Method 09/21/23 10:41 36.6 C 73 21 103/70 94 Room Air 09/21/23 08:07 36.6 C 86 20 110/77 92 Room Air 09/21/23 07:41 66 09/21/23 03:06 36.5 C 78 19 103/70 94 Room Air (1) Alcohol withdrawal Complication of substance-induced condition: with unspecified complication Qualified Code(s): F10.939 - Alcohol use, unspecified with withdrawal, unspecified
[2023-09-21] MEDS: hydrOXYzine HCl 25 MG TAB PO PRN (20:14)
[2023-09-21] MEDS: ONDANSETRON INJ 2 MG/ML 2 ML VIAL IV PRN (20:14)
[2023-09-22 06:41] LABS: Albumin Globulin Ratio 1.5 (0.9-2); Albumin Level 3.5 gm/dl (3.4-5.0); BUN Creatinine Ratio 7.2 (10-20); Bilirubin,Total 0.3 mg/dl (0.2-1.0); Calcium 8.7 mg/dl (8.6-10.3); Creatinine Clr Calc Pharmacy 97.3 ml/min; Est GFR (African American) 85.3 ml/min; Est GFR (Non-African American) 73.6 ml/min; Globulin 2.3 gm/dl (2.5-4.0); Potassium 4.6 mmol/L (3.5-5.1); Total Protein 5.8 gm/dl (6.0-8.3)
--- NOTE | 2023-09-22 07:17 | Hospitalist Progress Note ---
Date of Service September 22, 2023 Assessment & Plan (1) Alcohol withdrawal: Plan: Frequent hospitalizations for detox/withdrawal Reason for use is PTSD self-medication Continue Librium at current dose, symptom triggered ativan Plan to continue counseling, Vivitrol outpatient Set up IOP prior to discharge (2) Abnormal EKG: Plan: appreciate cardiology input echocardiogram reassuring troponins normal stress echo as outpatient once w/d complete (3) Acute UTI: Plan: Clinically, patient endorses burning with urination and suprapubic tenderness GBS growing in urine dc ceftriaxone two days received amoxicillin 500mg TID x 5-7 days total (4) RUQ pain: Plan: CT scan shows fatty liver, without alcoholic hepatitis significant stool burden, r-sided continue to monitor (5) Anxiety with depression: Plan: Patient reports cycles of binging alcohol are secondary to her history of PTSD Continue BuSpar, duloxetine, mirtazapine, and prazosin (6) Acute hyponatremia: Plan: Very mild improving (7) Hepatic steatosis: (8) History of seizure due to alcohol withdrawal: (9) PTSD (post-traumatic stress disorder): Plan FENGI: regular Code status: full DVT prophylaxis: encourage ambulation Isolation: none Disposition: PCU Admission and Anticipated Discharge Date Admission Date: September 18, 2023 Subjective Pt is a [] yo [] with a past medical history of [] who presents to the hospital on [] for []. Review of Systems Review of Systems: Constitutional: denies fever, chills, [] HEENT: denies congestion, sore throat Cardio: denies chest pain, palpitations Resp: denies shortness of breath, cough GI: denies abdominal pain, nausea, vomiting, constipation, diarrhea : denies pain with urination, change in urinary frequency Neuro: denies new numbness, tingling, weakness Physical Exam Physical Exam: General:Alert and oriented, no acute distress, [] HEENT: Normocephalic, moist oral mucosa, Cardio: Regular rate and rhythm, no murmur, Resp:Lungs clear to auscultation b/l, no wheezes or rhonchi, GI: Soft and nontender, nondistended, bowel sounds active Skin: Warm, pink, dry, Psych: Mood-affect congruence. Results & Data Results & Data Vital Signs (Past 12 Hours) Vital Signs Temp Pulse Pulse Resp BP BP Pulse Ox 09/22/23 03:14 36.6 C 68 18 96/63 L 93 09/21/23 22:33 37.2 C 80 16 111/73 93 09/21/23 21:54 78 O2 Del Method 09/22/23 03:14 Room Air 09/21/23 22:33 Room Air 09/21/23 21:54 (1) Alcohol withdrawal Complication of substance-induced condition: with unspecified complication Qualified Code(s): F10.939 - Alcohol use, unspecified with withdrawal, unspecified
--- NOTE | 2023-09-22 11:08 | Cardiology Progress Note ---
Date of Service September 22, 2023 Assessment & Plan (1) Chest pain syndrome: (2) Abnormal EKG: (3) Severe alcohol use disorder: Plan Epidemiologically patient is at extremely low risk for coronary disease given that she is premenopausal, non-smoker, without diabetes. Her stress echocardiogram this morning was unremarkable, etiology of her chest pain likely musculoskeletal or gastrointestinal. Will obtain ECG today, she should have a copy available of her baseline ECG which is abnormal for uncertain reasons (T wave inversions may be metabolic or drug related or congenital). If she carries a miniaturized copy, this could avoid unnecessary future workups for atypical chest pain in this patient with low epidemiologic risk. Will sign off from a cardiology standpoint. Admission and Anticipated Discharge Date Admission Date: September 18, 2023 Subjective Uneventful night. Patient does note mild (3/10 severity) anterior chest discomfort which is non-positional and non-pleuritic. No dyspnea or other symptoms Overnight telemetry benign, no significant tachycardia or dysrhythmia. She underwent stress echocardiogram this morning, no evidence of myocardial ischemia by ECG or echocardiographic criteria at 93% maximum predicted heart rate. Physical Exam Physical Exam: No distress. Afebrile. Normotensive. Pulse 84 bpm and regular. Skin: no ecchymoses or generalized lesions. HEENT: unremarkable. Neck: JVP at the clavicle at 90 degrees, no carotid bruits. Lungs: clear. Cardiac: regular rhythm, normal S1-2, no murmur. Abdomen: benign. Extremities: no edema, pulses intact. Neurologic: normal affect and conversation, nonfocal. Results & Data Vital Signs (Past 12 Hours) Vital Signs Temp Pulse Pulse Resp BP BP Pulse Ox 09/22/23 07:50 97.5 F L 84 18 107/73 96 09/22/23 07:25 62 09/22/23 03:14 97.9 F 68 18 96/63 L 93 O2 Del Method 09/22/23 07:50 Room Air 09/22/23 07:25 09/22/23 03:14 Room Air PG Care Time/CCT Total # of Minutes Spent Total Time Spent with Patient: Total time spent is greater than 50% in coordination of care (as documented) at patient's floor/unit and/or counseling patient: Coding Level of Care Code 45292 SUB INP/OBS CARE 2/35MIN Diagnoses Chest pain syndrome R07.9 Abnormal EKG R94.31 Severe alcohol use disorder F10.20
--- NOTE | 2023-09-22 11:17 | XCELERA ---
[id number] \\[id number]
--- NOTE | 2023-09-22 11:50 | Discharge Summary ---
Date of Service September 22, 2023 Admission HPI Per Admitting Provider Radha is a 38-year-old female with PMH of hepatic steatosis, alcohol withdrawal with seizures, methamphetamine intoxication, alcohol use disorder, GERD, falls, anxiety and depression. She presented for a detox request on 09/17. Multiple [place] admissions for similar in the past. Last drink was today at approximately 6 PM. Patient reports that she drinks 1/5 of vodka daily, and has been for the past 4 days. She last took her regular medications 4 days ago; she reports that she usually stops taking her medications when she goes on alcoholic binges. She also reports that she has been vomiting for the past 3 days; she managed to eat something for the first time today (pizza mozzarella sticks). She has not been taking any medications for her current symptoms. She does endorse a history of seizures related to alcohol withdrawal but denies being 1.5 months ago prior to coming to the hospital. She endorses one episode of visual/auditory hallucinations in the past with Adderall, but denies any visual/auditory hallucinations or DTs at present. She does endorse a resting tremor. She came in specifically today because her heart was racing. She does endorse 6/10 left- sided chest pain at present; 9/10 at worst. It is exacerbated when she stands up and exerts herself. No radiation to the jaw, shoulder, arm, or back. She characterizes it as a dull/aching pain like something is "sitting on her chest". No prior history of IL. Associate symptoms include severe numbness and tingling in both arms bilaterally. Pain is slightly alleviated when sitting up and sitting forward. No PMH of DVT/PE, CVA, or diabetes. She reports she has done well on Ativan and Valium in the past with her alcohol withdrawal, but not so much on phenobarbital. She reports that she goes on these alcoholic binges due to her history of PTSD. Of note, patient also endorses right upper quadrant pain to palpation that she first noticed over the past couple days. She denies smoking and tobacco use. Patient is mildly tachycardic around 100 bpm at time of admission, and mildly hypertensive at 147/101. ED course: Valium 5 mg IV Folic acid 1 mg IV Thiamine 100 mg IV ROS: Patient endorses chills, cold-sweats, tremors, dizziness, headache, chest pain, chest palpitation, abdominal pain, nausea, vomiting (she reports this is been 24/7 for the past 3 days), suprapubic tenderness, burning with urination, and severe numbness/tingling in the hands. Patient denies fever, visual/auditory hallucinations, rashes, tick bites, SOB, and pleuritic CP. Admission Exam Per Admitting Provider General: Anxious; tremors in the right hand; teary-eyed and emotional in the room; non-toxic appearing; cooperative; SpO2 97% on RA HEENT: normocephalic, atraumatic; no scleral icterus; PERRLA w/ EOMs intact; moist mucus membrane; vision and hearing grossly intact Neck: supple; no lymphadenopathy; trachea midline Skin: warm, dry without signs of tenting; no cyanosis; no rashes, bruising, lesions, or erythema noted CV: chest wall NTP; RR, tachycardic around 100 bpm; S1/S2 normal; no murmurs/rubs/gallops; pulses intact and symmetric at radial, DP, and PT Lungs: no acute respiratory distress; symmetrical chest wall expansion; clear breath sounds across all lung falcon w/o adventitious sounds; no wheezing ABD: Soft; RUQ is TTP; positive psoas sign; negative Rovsing sign; BS present; no rebound/guarding; no distention MSK: no tics or fasciculations; no edema noted in the LEs b/l, nonerythematous Neuro: A&Ox3; normal mood and affect; fluent speech; no focal deficits; sensation grossly intact in the UE/LEs b/l Principal Diagnosis Alcohol withdrawal Discharge Exam General:Alert and oriented, no acute distress, but anxious appearing HEENT: Normocephalic, moist oral mucosa, Cardio: Regular rate and rhythm, no murmur, Resp:Lungs clear to auscultation b/l, no wheezes or rhonchi, GI: Soft and nontender, nondistended, bowel sounds active Skin: Warm, pink, dry, Discharge Data Allergies Allergy/AdvReac Type Severity Reaction Status Date / Time lactose AdvReac Intermediate GI DISTRESS Verified 07/19/23 00:18 Consultations 09/18/23 20:14 ED Decision to Admit Stat 09/18/23 22:21 Consult Cardiology Routine Ordered Studies 09/18/23 22:00 CT Abd and Pelvis [CT abd pelvis IV con only] Stat Hospital Course (1) Alcohol withdrawal: (2) Abnormal EKG: (3) Acute UTI: (4) RUQ pain: (5) Anxiety with depression: (6) Acute hyponatremia: (7) Hepatic steatosis: (8) History of seizure due to alcohol withdrawal: (9) PTSD (post-traumatic stress disorder): Plan Pt is a 38 yo female with a past med hx of alcohol use disorder, PTSD, GERD, and depression who presents to the hospital on 09/17 for alcohol withdrawal. #Alcohol withdrawal: #History of seizure due to alcohol withdrawal: - pt has frequent hospitalizations for detox/withdrawal - Reason for use is PTSD self-medication - Alcohol level 224.7 on admission - Kept on AWSS protocol. - Kept on folate, thiamine, and librium taper this hospitalization - to continue taper on discharge - has appt with [facility] resident provider this 09/24 #Abnormal EKG: - New T wave inversions in leads V1 through 3 - troponins normal - cardiology consulted; no concerns for CAD - echocardiogram reassuring, stress echo also reassuring #Acute UTI: - clinically pt noted burning on urination and suprapubic tenderness - Started on ceftriaxone - switched to amoxicillin TID dosing, will discharge on 5 days amoxicillin for 7 days total AB coverage #RUQ pain: #Hepatic steatosis: - CT scan shows fatty liver, without alcoholic hepatitis - significant stool burden, r-sided - pain resolved Total Time Total Time Spent Total Time Spent (In Minutes): As per attending attestation. Discharge Plan Discharge Items Patient Disposition: Home - Self-Care Reason For Visit: ALCOHOL WITHDRAWAL Discharge Diagnosis: Alcohol withdrawal Activity: As commented below Activity Comment: Activity as tolerated, take breaks when needed Non-emergency contact: Primary Care Provider Call non-emergency contact if: you have any medication questions and your symptoms worsen Follow-up/Referrals: ASHLEY NOEL [Other] Vinay Ace DO [Resident] - Diet: Regular Addtl Attending Provider Instructions: You were admitted to the hospital for alcohol withdrawal management. You were treated with a medication called Ativan (a benzodiazepine) for symptoms associated with withdrawal as needed and a medication called Librium. As you have been requiring no Ativan the last day or two and we have weaned down the Librium, and because you are also now feeling better and tolerating oral intake, we feel it is safe for you to go home. We have made an appointment at our office with Dr. Ace for this , 09/24 at 9:05 am. This appointment is at the office in front of the hospital [address]. It is super important that you make this appointment to further help you stay alcohol-free to avoid hospitalizations like this in the future. At that appointment, Dr. Ace can talk to you about medication options for your alcohol use but also for underlying PTSD and depression. In the meantime prior to that appointment, we recommend you reach out to local psychologists and therapists to try to get an appointment as soon as they have openings. Medications can help with mental health struggles, but work best when combined with therapy and good coping mechanisms, which take time to develop. You were also found to have a urinary tract infection (UTI). We have sent 5 days worth of amoxicillin (an antibiotic) to your pharmacy to finish up the course for this. We have also sent a short course of the rest of the medication Librium for your alcohol withdrawal. Your regime will be as follows (regardless of bottle instructions): * Librium 50 mg once tonight * Librium 50 mg tomorrow morning and again at night * Friday 50 mg once in the morning * 50 mg once in the morning Pending Studies at Discharge: No Stand-Alone Forms: My [facility], Smoking Cessation Medications and DC Order Prescriptions: New amoxicillin 500 mg capsule 500 mg PO Q8 5 Days Qty: 15 0RF chlordiazepoxide HCl 25 mg capsule 25 mg PO BID Qty: 5 0RF Rx Instructions: once capsule twice a day for 2 days, then one capsule for one day and then stop Continued duloxetine 60 mg capsule,delayed release(DR/EC) 60 mg PO QAM propranolol 10 mg tablet 10 mg PO BID Qty: 30 6RF mirtazapine 15 mg tablet 15 mg PO HS gabapentin 300 mg capsule 300 mg PO TID buspirone 10 mg Tablet 10 mg PO TID folic acid 1 mg tablet 1 mg PO DAILY prazosin 1 mg capsule 3 mg PO HS lorazepam 1 mg tablet 1 mg PO Q6H PRN (Reason: withdrawal symptoms) Qty: 5 0RF hydroxyzine HCl 25 mg tablet 25 mg PO QID PRN (Reason: Anxiety) [id number]-[id number] 9 mg iron-400 mcg tablet 1 tab PO DAILY docusate sodium 100 mg capsule 100 mg PO UD PRN (Reason: Constipation) Discharge Orders: Discharge Order (Routine); Ordered 09/22/23 Ordered By: Christina Webb Admission Data Admit Date/Time: 09/18/23 21:18 Attending Provider: Esperanza Webber Admit Provider: Nicolas Lao Primary Care Provider: ASHLEY NOEL Other Providers: Nicolas Lao; James Sheikh Other Interventions: Discharge Summary Assessment (RN) Last Done: 09/22/23 13:39 Supervising Physician Co-Signing Physician Notes Attending Physician Supervision Note: I independently interviewed and examined the patient and verified the méndez history and physical, reviewed labs and image studies and agree with findings and care plan noted above. Resident Activity Tracking Resident Involvement: Resident Care Provided Care Provided: Adult Hospital Medicine
--- NOTE | 2023-09-22 18:31 | Electrocardiogram Report ---
Test Reason : Blood Pressure : / mmHG Vent. Rate : 075 BPM Atrial Rate : 075 BPM P-R Int : 146 ms QRS Dur : 080 ms QT Int : 418 ms P-R-T Axes : 045 030 -04 degrees QTc Int : 466 ms Normal sinus rhythm Low voltage QRS Chronic T-wave inversion in Anterior leads Prolonged QT Abnormal ECG When compared with ECG of 18-SEP-2023 19:39, No significant change was found Confirmed by Renaldo Tejeda ([id number]) on 09/22/2023 6:30:51 PM Referred By: REFERRED SELF Confirmed By:Renaldo Tejeda
== END 2023-09-22 15:50 | disposition home or self-care (01) | DRG 897 ==
LOC: ED 18:55 → 2S 21:18 → SUATTDRO 21:18 → 2S 22:28

== ENCOUNTER 2023-12-11 12:46 | Inpatient (IN) ==
--- NOTE | 2023-12-11 13:06 | Emergency Department Note ---
Impression & Plan Alcohol withdrawal, Seizures, Elevated lactic acid level ED Provider Note Name: PHILLIP AMARO Age: 38 Sex: Female Arrives Via: Walk-In Informant: Patient ED Provider: Gabino Grijalva MD Chief Complaint: Withdrawal Impression: As per impressions above Medical Decision Makin-year-old alcoholic arrives for evaluation of reported seizures and alcohol withdrawal. States she has been trying to cut back her alcohol but is now seizing at home. She smells heavily of urine and alcohol on arrival. Laboratory workup is concerning for a significantly elevated lactic acid along with an elevated alcohol level difficult to say whether this was truly a seizure versus she was just intoxicated urinated on herself. Patient is requesting rehab placement however given her heavy alcohol use, DT risk and seizures would not be medically clear for this at this time. Discussed with hospitalist who will further evaluate patient for management. Triage/Nursing Notes reviewed by Me External Chart Review by me: Extensive discharge summary reviewed most recently from September 22, 2023 during which previous previous hospitalization for similar symptoms Differential:Alcohol intoxication, alcohol withdrawal, toxicologic, infection, hypoglycemia, electrolyte abnormalities, cardiac sources, intracerebral event, neurologic, trauma, as well as other pathologies. Vital Signs: reviewed and remarkable for tachy Interventions: nss bolus, banana bag iv, ativan 2mg iv Labs:ED labs Reviewed by me and remarkable for +ETOH, +Lactic acid EKG:As per my interpretation indication tachycardia. Sinus tachycardia 120 bpm with a QTc of 461. There is no ectopy or ischemia. Patient with anterior T wave inversions which are similar if not slightly increased from EKG of 09/22/2023. Cardiac/Tele Monitoring: Cardiac Monitoring: An Order was placed for continuous cardiac monitoring. The monitor shows a rate of 120 with a sinus tach rhythm. Consults:Dr Calvin PHAN Hospitalist Social Determinants of Health: alcoholism Plan: Disposition:Hospitalization. Condition: Fair History of Present Illness: 38-year-old female arrives for evaluation of alcohol withdrawal. Patient notes she has a long history of alcohol addiction. Multiple previous hospitalizations for withdrawal as well as rehab. She had been in rehab for the last month and had been out 2 weeks ago. She started drinking again a little over a week ago. Drinking daily. States she tried quitting over the last 24 hours. Started seizing this morning. She has had 2 episodes of seizures. No hallucinations. Patient admits she lost bladder control with seizure this morning. Denies any drug use. No falls, trauma, injuries. Past Medical History:See Below Home Medications:See Below Allergies:lactose Vitals:Blood Pressure: 153/99, Pulse 141, RR 16, T 36.6C, O2 96% on RA Physical Exam: GENERAL: Patient is tired appearing and in mild distress. Smells of etoh and urine RESPIRATORY: No dyspnea. Clear to auscultation and equal bilaterally. CARDIOVASCULAR: Tachy.No murmur appreciated. GASTROINTESTINAL: Abdomen soft, non-tender, no peritonitis. EXTREMITIES: Normal motion all extremities, no cyanosis, no edema. NEUROLOGIC: Alert and oriented. No focal neurologic deficits appreciated SKIN: No rash, no jaundice, no diaphoresis. PSYCH: Appropriate GCS: 15 ED Course: Times/Reassessments: Patient heart rate coming down slowly. Discussed with hospitalist who will further evaluate prior to further benzodiazepine versus other option. Gabino Grijalva MD Past Med/Surg History Problem List (Updated 12/11/23 @ 13:50 by Gabino Grijalva MD) Elevated lactic acid level (Acute) Seizures (Acute) Alcohol withdrawal (Acute) Severe alcohol use disorder Chest pain syndrome PTSD (post-traumatic stress disorder) Suprapubic discomfort (Acute) Mydriasis Methamphetamine intoxication Left lower quadrant abdominal pain Seizure-like activity (Acute) Vomiting (Acute) Elevated liver transaminase level Hypokalemia History of seizure due to alcohol withdrawal (Acute) Elevated liver enzymes (Acute) Vomiting (Acute) Hypomagnesemia (Acute) Alcohol withdrawal (Acute) Hypomagnesemia (Acute) Alcohol use disorder (Acute) Fall (Acute) GERD (gastroesophageal reflux disease) (Acute) Reflux gastritis Anxiety with depression B12 deficiency Depression (Acute) Reflux esophagitis Hepatic steatosis Medical History Seizure Hypophosphatemia Irritable bowel syndrome Hyponatremia Leukocytosis Elevated lactic acid level Alcoholic gastritis High anion gap metabolic acidosis Alcoholic ketoacidosis Alcohol withdrawal Alcoholic intoxication Sciatica Transaminitis Alcoholism Chest pain at rest History of intussusception Thrombocytopenia Tension headache Breast lump on left side at 11 o'clock position Hypomagnesemia Miscarriage PTSD (post-traumatic stress disorder) Pancreatitis Surgical History S/P dilation and curettage H/O foot surgery Previous section Family History Mother Depression Anxiety Brother Depression Anxiety Denies family history of Ovarian cancer Prostate cancer Diabetes Myocardial infarction Breast cancer Colorectal cancer Hypertension Social History Smoking Status: Never smoker Second Hand Exposure: No; Do You Dip or Chew Tobacco: No; Hx Alcohol Use: Yes Alcohol type: hard liquor Hx Substance Use: Yes Last Used Substance: Unknown Substance Use Type Other:: meth + on drug screen, denies any drug use Preferred Language: Icelandic Communication Ability: Effective Visual Impairment: No Limitations Hearing Ability: Normal Tower Operator Required: No Beliefs That Will Affect Care: Moravian Moravian Beliefs: Pt methodist marital status: Current Living Situation: Family Current Living Situation Comment: Parents and son 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[employer] How many Children do You have: 1 Feels Safe at Home: Yes Childhood Exposure to Second-Hand Smoke: No Diet: regular Dental Care, Regularly: Yes Physical Activity Frequency: 5-6 Times per Week Seatbelt Use: always Sunscreen Use: Yes Assistive Devices: None Allergies Allergies Allergy/AdvReac Type Severity Reaction Status Date / Time lactose AdvReac Intermediate GI DISTRESS Verified 07/19/23 00:18 Home Meds Home Medications Medication Instructions Recorded Confirmed mirtazapine 15 mg tablet 15 mg PO HS 01/15/22 09/18/23 duloxetine 60 mg capsule,delayed 60 mg PO QAM 04/29/22 09/18/23 release gabapentin 300 mg capsule 300 mg PO TID 05/23/22 09/18/23 folic acid 1 mg tablet 1 mg PO DAILY 10/16/22 09/18/23 prazosin 1 mg capsule 3 mg PO HS 03/14/23 09/18/23 buspirone 10 mg tablet 10 mg PO TID 04/29/23 09/18/23 docusate sodium 100 mg capsule 100 mg PO UD PRN Constipation 09/18/23 09/18/23 hydroxyzine HCl 25 mg tablet 25 mg PO QID PRN Anxiety 09/18/23 09/18/23 multivitamin-iron 9 mg-folic acid 1 tab PO DAILY 09/18/23 09/18/23 400 mcg-calcium and minerals tablet Previous Rx's Medication Instructions Recorded propranolol 10 mg tablet 10 mg PO BID #30 tabs 11/11/22 lorazepam 1 mg tablet 1 mg PO Q6H PRN withdrawal 08/21/23 symptoms #5 tabs chlordiazepoxide HCl 25 mg capsule 25 mg PO BID PRN anxiety #5 caps 09/22/23 Results & Data (ED) Vital Signs Vital Signs - 24 hr 12/11/23 12:56 12/11/23 13:28 12/11/23 13:53 Temperature 36.6 C Temperature Source Temporal Artery Scan Pulse Rate 141 H 124 H Respiratory Rate 16 Respiratory Effort / Characteristics Non-Labored Spontaneous Respiratory Depth Normal Blood Pressure 153/99 H Blood Pressure Mean 117 Pulse Oximetry 96 92 Oxygen Delivery Method Room Air Room Air Sepsis Recent Fever Within 48 Hours No Sepsis New/Unexplained Change in Mental Status No Sepsis Action Taken by Nursing No Action Required Laboratory Data 12/12/23 06:45 12/12/23 04:00 Lab Results 12/11/23 Range/Units 13:23 WBC 6.83 (4.8-10.8) K/ul RBC 4.46 (4.20-5.40) M/uL Hgb 13.7 (12.0-16.0) g/dl Hct 40.0 (37.0-47.0) % MCV 89.7 (80.0-100.0) fL MCH 30.7 (25.0-34.0) pg MCHC 34.3 (32.0-36.0) g/dL RDW Std Deviation 49.5 H (36.4-46.3) fL RDW Coeff of Dallin 15.1 H (11.5-14.5) % Plt Count 577 H (130-400) K/uL MPV 9.0 L (9.4-12.4) fL Immature Gran % (Auto) 0.3 % Neut % (Auto) 58.9 % Lymph % (Auto) 30.6 % Pepin % (Auto) 8.9 % Eos % (Auto) 0.1 % Baso % (Auto) 1.2 % Neut # (Auto) 4.02 (1.40-6.50) K/uL Lymph # (Auto) 2.09 (1.20-3.40) K/uL Pepin # (Auto) 0.61 H (0.11-0.59) K/uL Eos # (Auto) 0.01 (0.00-0.50) K/uL Baso # (Auto) 0.08 (0.00-0.20) K/uL Immature Gran # (Auto) 0.02 (0.01-0.20) K/uL PT 9.9 (9.0-12.0) Seconds INR 0.9 (0.9-1.1) Sodium 132 L (136-145) mmol/L Potassium 3.7 (3.5-5.1) mmol/L Chloride 92 L (98-107) mmol/L Carbon Dioxide 15 L (21-32) mmol/L Anion Gap 25 H (3-11) BUN 9 (6-23) mg/dl Creatinine 0.70 (0.6-1.2) mg/dl Est Cr Clr Drug Dosing 136.6 ml/min Est GFR ( Amer) 126.5 ml/min Est GFR (Non-Af Amer) 109.1 ml/min BUN/Creatinine Ratio 12.9 (10-20) Glucose 152 H (70-99(Fasting)) mg/dl Osmolality 383 H* (280-300) mOsm/kg Lactate 8.4 H* (0.4-2.0) mmol/L Calcium 8.9 (8.6-10.3) mg/dl Magnesium 1.9 (1.7-2.4) mg/dl Total Bilirubin 0.7 (0.2-1.0) mg/dl Direct Bilirubin 0.2 (0-0.2) mg/dl AST 243 H (13-39) U/L ALT 163 H (7-52) U/L Alkaline Phosphatase 65 (34-104) U/L Total Creatine Kinase 647 H (26-192) U/L Troponin I High Sens 7.1 (0-14) pg/ml Total Protein 7.7 (6.0-8.3) gm/dl Albumin 4.8 (3.4-5.0) gm/dl Lipase 57 (11-82) U/L TSH 1.568 (0.300-4.500) uIu/ml Ethyl Alcohol mg/dL 347.5 H (<10.0) mg/dl Administered Medications Acetaminophen (Acetaminophen 325 Mg Tab) 650 mg PO Q4H PRN PRN Reason: Headache or Pain Stop: 01/11/24 03:31 Last Admin: 12/12/23 08:25 Dose: 650 mg Documented By: Admin: 12/12/23 03:36 Dose: 650 mg Documented By: [id number] Buspirone HCl (Buspirone 5 Mg Tab) 10 mg PO TID [facility] Stop: 01/10/24 20:59 Last Admin: 12/12/23 08:26 Dose: 10 mg Documented By: Admin: 12/11/23 21:05 Dose: 10 mg Documented By: [id number] Gabapentin (Gabapentin 300 Mg Cap) 300 mg PO TID [facility] Stop: 01/11/24 08:59 Last Admin: 12/12/23 08:27 Dose: 300 mg Documented By: YOVANI Ceftriaxone Sodium (Rocephin) 2,000 mg in 50 mls @ 100 mls/hr IV Q24H [facility] Stop: 12/12/23 23:59 Last Infusion: 12/11/23 17:22 Dose: Infused Documented By: Admin: 12/11/23 16:52 Dose: 100 mls/hr Documented By: BRENDA Potassium Phosphate 21 mmol/ (Sodium Chloride) 507 mls @ 88 mls/hr IV ONE ONE Stop: 12/12/23 13:45 Last Admin: 12/12/23 08:26 Dose: 88 mls/hr Documented By: YOVANI Lorazepam (Lorazepam 2 Mg/1 Ml Vial) 1 mg IV UD PRN; Protocol PRN Reason: EtOH Withdrawal AWSS Score 6,7 Stop: 01/10/24 18:56 Last Admin: 12/12/23 08:25 Dose: 1 mg Documented By: Admin: 12/12/23 03:10 Dose: 1 mg Documented By: [id number] Propranolol HCl (Propranolol Hcl 10 Mg Tab) 10 mg PO BID [facility] Stop: 01/11/24 08:59 Last Admin: 12/12/23 08:27 Dose: 10 mg Documented By: YOVANI Thiamine HCl (Thiamine Hcl 100 Mg Tab) 100 mg PO QAM [facility] Stop: 01/10/24 16:14 Last Admin: 12/11/23 18:44 Dose: Not Given Documented By: BRENDA Discontinued Medications Acetaminophen (Acetaminophen 325 Mg Tab) Confirm Administered Dose 650 mg .ROUTE .STK-MED ONE Stop: 12/12/23 03:36 Last Admin: 12/12/23 03:39 Dose: Not Given Documented By: [id number] Multivitamins 10 ml/ Thiamine HCl 100 mg/ Folic Acid 1 mg/Sodium Chloride 1,011.2 mls @ 500 mls/hr IV .Q2H2M ONE Stop: 12/11/23 15:04 Last Infusion: 12/11/23 15:32 Dose: Infused Documented By: Admin: 12/11/23 13:34 Dose: 500 mls/hr Documented By: CHAPO Sodium Chloride (Nss) 1,000 mls @ 999 mls/hr IV .Q1H1M ONE Stop: 12/11/23 14:45 Last Infusion: 12/11/23 16:29 Dose: Infused Documented By: Admin: 12/11/23 15:28 Dose: 999 mls/hr Documented By: RENETTA Parenteral Electrolytes (Plasma-Lyte A Ph 7.4) 1,000 mls @ 999 mls/hr IV .Q1H1M ONE Stop: 12/11/23 15:56 Last Infusion: 12/11/23 16:52 Dose: Infused Documented By: Admin: 12/11/23 15:51 Dose: 999 mls/hr Documented By: RENETTA Phenobarbital Sodium 230 mg/ (Sodium Chloride) 51.7692 mls @ 103.538 mls/hr IV NOW STA Stop: 12/11/23 15:44 Last Infusion: 12/11/23 16:21 Dose: Infused Documented By: Admin: 12/11/23 15:50 Dose: 103.5 mls/hr Documented By: RENETTA Parenteral Electrolytes (Plasma-Lyte A Ph 7.4) 1,000 mls @ 999 mls/hr IV .Q1H1M ONE Stop: 12/11/23 16:45 Last Infusion: 12/11/23 17:53 Dose: Infused Documented By: Admin: 12/11/23 16:52 Dose: 999 mls/hr Documented By: BRENDA Magnesium Sulfate/Dextrose (Magnesium Sulfate / D5w) 1 gm in 100 mls @ 50 mls/hr IV Q2H JOSE F Stop: 12/11/23 20:29 Last Infusion: 12/11/23 20:40 Dose: Infused Documented By: [id number] Admin: 12/11/23 18:39 Dose: 50 mls/hr Documented By: Infusion: 12/11/23 18:39 Dose: Infused Documented By: Admin: 12/11/23 16:53 Dose: 50 mls/hr Documented By: BRENDA Potassium Phosphate 21 mmol/ (Sodium Chloride) 507 mls @ 88 mls/hr IV ONE ONE Stop: 12/11/23 22:15 Last Infusion: 12/11/23 22:49 Dose: Infused Documented By: [id number] Admin: 12/11/23 16:53 Dose: 88 mls/hr Documented By: BRENDA Folic Acid 1 mg/ Syringe 10 mls @ 5 mls/min IV QAM JOSE F Stop: 01/10/24 16:14 Last Admin: 12/12/23 08:33 Dose: 5 mls/min Documented By: Admin: 12/11/23 16:52 Dose: 5 mls/min Documented By: BRENDA Thiamine HCl 100 mg/ Syringe 10 mls @ 2 mls/min IV QAM JOSE F Stop: 01/11/24 08:59 Last Admin: 12/12/23 08:33 Dose: 2 mls/min Documented By: YOVANI Parenteral Electrolytes (Plasma-Lyte A Ph 7.4) 1,000 mls @ 125 mls/hr IV .Q8H JOSE F Stop: 01/10/24 16:59 Last Infusion: 12/12/23 08:28 Dose: 0 mls/hr Documented By: Admin: 12/12/23 03:26 Dose: 125 mls/hr Documented By: [id number] Infusion: 12/12/23 03:23 Dose: Infused Documented By: [id number] Infusion: 12/11/23 20:32 Dose: 125 mls/hr Documented By: [id number] Infusion: 12/11/23 19:25 Dose: 0 mls/hr Documented By: [id number] Admin: 12/11/23 18:16 Dose: 125 mls/hr Documented By: BRENDA Parenteral Electrolytes (Plasma-Lyte A Ph 7.4) 1,000 mls @ 999 mls/hr IV .Q1H1M ONE Stop: 12/11/23 19:56 Last Infusion: 12/11/23 20:32 Dose: Infused Documented By: [id number] Admin: 12/11/23 19:22 Dose: 999 mls/hr Documented By: [id number] Famotidine (Pepcid 20mg Iv Push) 20 mg in 5 mls @ 2.5 mls/min IV NOW STA Stop: 12/12/23 03:45 Last Admin: 12/12/23 03:52 Dose: 2.5 mls/min Documented By: [id number] Lorazepam (Lorazepam 1 Mg/1 Ml Syr Ed Inj Use) 2 mg IV ONE STA Stop: 12/11/23 13:04 Last Admin: 12/11/23 13:28 Dose: 2 mg Documented By: KEH Phenobarbital Sodium (Phenobarbital Sodium 65 Mg/Ml Vial) 170 mg IM Q3H JOSE F Stop: 12/11/23 21:01 Last Admin: 12/11/23 21:06 Dose: 170 mg Documented By: [id number] Admin: 12/11/23 18:20 Dose: 170 mg Documented By: BRENDA Discharge Plan Visit Data Chief Complaint: Detox Request Stated Complaint: ALCHOL WITHDRAWAL ED Provider: Gabino Grijalva Discharge Problem: Alcohol withdrawal, Seizures, Elevated lactic acid level Patient Disposition: Admitted As Inpatient Discharge Instructions Interventions: ED Discharge Assessment Last Done: 12/11/23 16:33 Discharge Problem: Alcohol withdrawal Qualifiers: Complication of substance-induced condition: with unspecified complication Q ualified Code(s): F10.939 - Alcohol use, unspecified with withdrawal, unspecified
[2023-12-11] MEDS: LORazepam 1 MG/1 ML SYR ED Inj Use IV STA (13:28)
[2023-12-11] MEDS: MULTI-VITAMIN INFUSION 10 ML, THIAMINE HCL 100 MG, FOLIC ACID 1 MG in SODIUM CHLORIDE 0... IV ONE (13:34)
[2023-12-11 13:45] LABS: Basophils # (auto) 0.08 K/uL (0.00-0.20); Basophils % (auto) 1.2 %; Eosinophils # (auto) 0.01 K/uL (0.00-0.50); Eosinophils % (auto) 0.1 %; Hemoglobin 13.7 g/dl (12.0-16.0); Immature Granulocytes # (auto) 0.02 K/uL (0.01-0.20); Immature Granulocytes % (auto) 0.3 %; Lymphocytes # (auto) 2.09 K/uL (1.20-3.40); Lymphocytes % (auto) 30.6 %; Mean Corpuscular Hemoglobin 30.7 pg (25.0-34.0); Mean Corpuscular Hgb Conc 34.3 g/dL (32.0-36.0); Mean Corpuscular Volume 89.7 fL (80.0-100.0); Monocytes # (auto) 0.61 K/uL (0.11-0.59); Monocytes % (auto) 8.9 %; Neutrophils # (auto) 4.02 K/uL (1.40-6.50); Neutrophils % (auto) 58.9 %; Platelet Count 577 K/uL (130-400); RDW Coefficient of Variation 15.1 % (11.5-14.5); RDW Standard Deviation 49.5 fL (36.4-46.3); Red Blood Count 4.46 M/uL (4.20-5.40); White Blood Count 6.83 K/ul (4.8-10.8)
[2023-12-11 14:12] LABS: Albumin Level 4.8 gm/dl (3.4-5.0); BUN Creatinine Ratio 12.9 (10-20); Bilirubin Direct 0.2 mg/dl (0-0.2); Bilirubin,Total 0.7 mg/dl (0.2-1.0); Calcium 8.9 mg/dl (8.6-10.3); Creatinine Clr Calc Pharmacy 136.6 ml/min; Est GFR (African American) 126.5 ml/min; Est GFR (Non-African American) 109.1 ml/min; Magnesium 1.9 mg/dl (1.7-2.4); Potassium 3.7 mmol/L (3.5-5.1); Total Protein 7.7 gm/dl (6.0-8.3)
[2023-12-11 14:13] LABS: INR 0.9 (0.9-1.1); Prothrombin Time 9.9 Seconds (9.0-12.0)
[2023-12-11 14:17] LABS: Troponin I High Sensitivity 7.1 pg/ml (0-14)
[2023-12-11 14:26] LABS: Thyroid Stimulating Hormone 1.568 uIu/ml (0.300-4.500)
[2023-12-11] MEDS ORDERED: PHENobarbital sodium 65 MG/ML VIAL IV STA (14:28)
--- NOTE | 2023-12-11 14:32 | History & Physical Report ---
Date of Service December 11, 2023 Assessment & Plan (1) Seizures: Plan: ?Seizure, DDx includes alcohol withdrawal/substance induced Patient with a history of multiple alcohol withdrawal seizures in the past. Denies seizure outside of alcohol use. Denies head trauma. Past history of methamphetamine use which she denies recent use of. Denies recreational drug, marijuana, opioid use since getting out of rehab Alcohol level on admission 347, last drink approximately 10 AM and drinking 1/5 of alcohol a day attempting to cut back in the last 24 hours. Her last drink was shortly before she had her first seizure episode. These were reportedly tonic-clonic per family who is not present at time of admissione chevy At bedside assessment is somnolent but does not have any focal strength or sensory deficits. She is tachycardic, skin is warm and diaphoretic, tremulous on exam CThead pending, urine tox pending. Serum osmolality/osmolar gap pending Urine sodium 132 Recommend admission to ICU due to alcohol withdrawal and additional seizure. Patient reports she has done well with both Librium and phenobarbital in the past for withdrawal symptoms. Has been started on phenobarbital as below Lactate elevated 8.4, repeat pending. Additional liter Plasma-Lyte bolus added clinically volume contracted. - Transaminases present suspect alcohol hepatitis. LFTs trended. US pending. No leukocytosis. No fever. No photo/phono sensitivity. No nuchal rigidity suggest infectious/meningitic process (2) Alcohol withdrawal: Plan: [facility] Phenobarb Protocol IBW 50 kg, height 6 feet. High risk of withdrawal, moderate to high risk of respiratory sedation. Recommend initial phenobarbital load of 810mg/kg IBW. - 8mpk *73kg IBW = ~580mg. 40% total loading dose 230mg ordered initially, then 170mg in 3 hours, then 170mg in 3 hours Will give first dose IV due to seizure withdrawal symptoms End-tidal CO2 monitoring ordered - Thiamine, Folic acid ordered - Volume contracted, 2L plasmalyte + maintenance additional ordered History of Present Illness Primary Care Provider: ASHLEY Garcia is a 38-year-old female with past medical history of alcohol abuse, multiple admissions for withdrawal with a history of seizures, recent rehab stay who presents for alcohol detox with reports of 2 seizures this morning. Radha reports that she has been drinking around 1/5 of vodka a day for at least a week. She got out of rehab approximately 2 weeks ago. She has been attempting to cut back in the last 24 hours. This morning she had 2 episodes where she lost consciousness and reportedly seized per her family and was brought to the ER. EtOH 347 on admission. Lactate is elevated at 8.4 on admission. Patient does not remember the episode, but woke up incontinent of urine. She has had 2 prior withdrawal seizures in the past. She reports that she has generally done well on both phenobarbital and Librium in the past. She reports that she has not had any seizures outside of alcohol use/in the setting of alcohol withdrawal. She denies any recreational drug or substance use. Denies marijuana use. Denies narcotic/pain medication use. Does have a past history of methamphetamine use, denies use in the last week at time of admission. Urine tox pending. Sodium on admission is 132. 1Alcohol level is 300s on admission. Last drink was 10 AM, shortly shortly before seizure however she has been attempting to taper her alcohol consumption. Past admissions with EtOH [id number]. She thinks her first seizure was around 10:00 and second seizure was around 1111 30. Denies fever. Endorses mild nausea. Denies cough. Allergies Allergy/AdvReac Type Severity Reaction Status Date / Time lactose AdvReac Intermediate GI DISTRESS Verified 07/19/23 00:18 Home Medications Medication Instructions Recorded Confirmed Type mirtazapine 15 mg tablet 15 mg PO HS 01/15/22 09/18/23 History duloxetine 60 mg capsule,delayed 60 mg PO QAM 04/29/22 09/18/23 History release gabapentin 300 mg capsule 300 mg PO TID 05/23/22 09/18/23 History folic acid 1 mg tablet 1 mg PO DAILY 10/16/22 09/18/23 History propranolol 10 mg tablet 10 mg PO BID #30 tabs 11/11/22 09/18/23 Rx prazosin 1 mg capsule 3 mg PO HS 03/14/23 09/18/23 History buspirone 10 mg tablet 10 mg PO TID 04/29/23 09/18/23 History lorazepam 1 mg tablet 1 mg PO Q6H PRN withdrawal 08/21/23 09/18/23 Rx symptoms #5 tabs docusate sodium 100 mg capsule 100 mg PO UD PRN Constipation 09/18/23 09/18/23 History hydroxyzine HCl 25 mg tablet 25 mg PO QID PRN Anxiety 09/18/23 09/18/23 History multivitamin-iron 9 mg-folic acid 1 tab PO DAILY 09/18/23 09/18/23 History 400 mcg-calcium and minerals tablet chlordiazepoxide HCl 25 mg capsule 25 mg PO BID PRN anxiety #5 caps 09/22/23 Rx Past Med/Surg History Problem List (Updated 12/11/23 @ 13:50 by Gabino Grijalva MD) Elevated lactic acid level (Acute) Seizures (Acute) Alcohol withdrawal (Acute) Severe alcohol use disorder Chest pain syndrome PTSD (post-traumatic stress disorder) Suprapubic discomfort (Acute) Mydriasis Methamphetamine intoxication Left lower quadrant abdominal pain Seizure-like activity (Acute) Vomiting (Acute) Elevated liver transaminase level Hypokalemia History of seizure due to alcohol withdrawal (Acute) Elevated liver enzymes (Acute) Vomiting (Acute) Hypomagnesemia (Acute) Alcohol withdrawal (Acute) Hypomagnesemia (Acute) Alcohol use disorder (Acute) Fall (Acute) GERD (gastroesophageal reflux disease) (Acute) Reflux gastritis Anxiety with depression B12 deficiency Depression (Acute) Reflux esophagitis Hepatic steatosis Medical History Seizure Hypophosphatemia Irritable bowel syndrome Hyponatremia Leukocytosis Elevated lactic acid level Alcoholic gastritis High anion gap metabolic acidosis Alcoholic ketoacidosis Alcohol withdrawal Alcoholic intoxication Sciatica Transaminitis Alcoholism Chest pain at rest History of intussusception Thrombocytopenia Tension headache Breast lump on left side at 11 o'clock position Hypomagnesemia Miscarriage PTSD (post-traumatic stress disorder) Pancreatitis Surgical History S/P dilation and curettage H/O foot surgery Previous section Family History Mother Depression Anxiety Brother Depression Anxiety Denies family history of Ovarian cancer Prostate cancer Diabetes Myocardial infarction Breast cancer Colorectal cancer Hypertension Social History Smoking Status: Never smoker Second Hand Exposure: No; Do You Dip or Chew Tobacco: No; Hx Alcohol Use: Yes Alcohol type: hard liquor Hx Substance Use: Yes Last Used Substance: Days (ago) Substance Use Type Other:: meth + on drug screen, denies any drug use Preferred Language: Beninese Communication Ability: Effective Visual Impairment: No Limitations Hearing Ability: Normal Mud Analysis Operator Required: No Beliefs That Will Affect Care: None marital status: Current Living Situation: Family Current Living Situation Comment: mom, dad, son 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[employer] How many Children do You have: 1 Feels Safe at Home: Yes Childhood Exposure to Second-Hand Smoke: No Diet: regular Dental Care, Regularly: Yes Physical Activity Frequency: 5-6 Times per Week Seatbelt Use: always Sunscreen Use: Yes Assistive Devices: None Physical Exam Physical Exam: General: A&Ox3. NAD. Cooperative. Diaphoretic. HEENT: Atraumatic, normocephalic. +bilateral pupil dilation. pupils are equal and reactive to light bilaterally Pulm: CTAB A&P. -wheezes, -rales, -rhonchi. Symmetrical chest rise. No increased work of breathing. No respiratory distress. Cardiac: Tachycardic, -mrg Radial pulses intact and symmetrical. Abdominal: Nontender, nondistended, soft. +RUQ TTP Ext: moves all extremities equally. Tremulous. Garment Liner strength, hip flexion, ankle dorsi/plantarflexion 5/5 bilat. Results & Data Results & Data Vital Signs (Past 12 Hours) Vital Signs Temp Pulse Resp BP Pulse Ox O2 Del Method 12/11/23 13:53 92 Room Air 12/11/23 13:28 124 H 12/11/23 12:56 36.6 C 141 H 16 153/99 H 96 Room Air PG Care Time/CCT Total # of Minutes Spent Total Time Spent with Patient: Total time spent is greater than 50% in coordination of care (as documented) at patient's floor/unit and/or counseling patient: Coding Level of Care Code 33039 INT INP/OBS CARE MIN Diagnoses Seizures R56.9 Alcohol withdrawal F10.939 Complication of substance-induced condition: with unspecified complication (2) Alcohol withdrawal Complication of substance-induced condition: with unspecified complication Qualified Code(s): F10.939 - Alcohol use, unspecified with withdrawal, unspecified
--- NOTE | 2023-12-11 14:49 | Electrocardiogram Report ---
Test Reason : Blood Pressure : */* mmHG Vent. Rate : 128 BPM Atrial Rate : 128 BPM P-R Int : 150 ms QRS Dur : 76 ms QT Int : 316 ms P-R-T Axes : 37 43 -63 degrees QTcB Int : 461 ms Sinus tachycardia Abnormal ECG When compared with ECG of 22-Sep-2023 11:48, Vent. rate has increased by 53 bpm Inverted T waves have replaced nonspecific T wave abnormality in Lateral leads Confirmed by James Sheikh ([id number]) on 12/11/2023 2:49:15 PM Referred By: Confirmed By: James Sheikh
--- NOTE | 2023-12-11 15:13 | CT Scan Report ---
CT head/brain wo con CLINICAL HISTORY: seizure Technique: Contiguous axial CT images of the head were acquired from the base of the skull to the kiet jimi without intravenous contrast administration. Images were viewed in brain, subdural and bone [facility]. Automated dose lowering techniques and/or adjustment according to patient size were utilized for this exam. Comparison: Comparison is made to 07/18/2023 CT head Findings: The ventricles, basal cisterns, and cerebral sulci are normal. There is no acute intracranial hemorrh age or evidence of acute territorial infarction. Neither mass effect, shift of the midline structures , nor abnormal extra-axial fluid collections are shown. Imaged portions of the paranasal sinuses and mastoid air cells are clear. The orbits appear normal. There are no acute fractures of the calvaria or scalp swelling. Impression: No acute intracranial hemorrhage, no evidence of acute territorial infarction or other acute intracra nial disease process. ACT 112: Negative or not required by law. Electronically signed by: Lester Johnson M.D. 12/11/2023 3:12 PM
[2023-12-11] MEDS: SODIUM CHLORIDE 0.9% 1,000 ML IV ONE (15:28)
--- NOTE | 2023-12-11 15:41 | XRay Report ---
XR chest 1V portable CLINICAL HISTORY: shortness of breath TECHNIQUE: Single frontal radiograph of the chest was obtained. Comparison: Comparison is made to chest radiograph 09/18/2023 FINDINGS: No lines and tubes are seen. The cardiomediastinal silhouette is normal. The lungs are clear. No evid ence of pleural effusion or pneumothorax. IMPRESSION: No acute abnormalities and in particular no radiographic evidence of pneumonia. ACT 112: Negative or not required by law. Electronically signed by: eLster Johnson M.D. 12/11/2023 3:40 PM
[2023-12-11] MEDS: PHENOBARBITAL SODIUM IV STA (15:50)
[2023-12-11] MEDS: SODIUM CHLORIDE 0.9% IV STA (15:50)
[2023-12-11] MEDS: PLASMA-LYTE A 1,000 ML IV ONE ×3 (15:51→19:22)
[2023-12-11] MEDS ORDERED: POTASSIUM PHOS 3 MMOL/1 ML INFUSION IV STA (16:01)
--- NOTE | 2023-12-11 16:08 | Critical Care Consultation ---
Date of Consultation December 11, 2023 Assessment & Plan (1) Seizures: (2) Severe alcohol use disorder: (3) PTSD (post-traumatic stress disorder): (4) Seizure-like activity: (5) Elevated liver transaminase level: Plan Reason Critically Ill: 38-year-old female came to the ER because of 2 episodes of seizures at home. In the ICU for alcohol withdrawal with withdrawal seizures Past medical history: Alcohol abuse, sciatica on gabapentin, anxiety/depression Neuro - [facility]: Negative --Seizures Tonic-clonic as per the signout Question alcohol withdrawal ? Sodium 132, TSH within normal limit Glucose, calcium within normal limit CT head 12/11/2023: Negative for any acute intracranial abnormalities Alcohol level 347 at presentation, in the past her alcohol level has been as high as 424 --Anxiety/depression On duloxetine as well as buspirone at home Cardiac - --Sinus tachycardia Likely from dehydration and questionable withdrawal from alcohol EKG 12/11/2023, 1305: Sinus tachycardia, normal axis, T wave inversions appreciated in leads III as well as lateral leads with some ST depression. Respiratory - -- No acute issues GI - --Patient does complain of right upper quadrant tenderness Positive Lezama's CT abdomen pelvis in August 2023 did not show any signs of gallstone Will order right upper quadrant ultrasound Lipase within normal limit -- Transaminitis Alk phos within normal limit RENAL/LYTES - -- HAGMA Delta-delta: Pure anion gap Likely sec to lactic acidosis Monitor -- Hyponatremia Hyperosmolar, hypovolemic T 383, calculated serum osmolality 369, osmolar gap of 13.6 which is only mildly elevated - -- No acute issues ENDO - -- ICU hypoglycemia protocol HEME - -- Normocytic anemia Monitor H&H --Thrombocytosis Likely secondary to volume constriction ID - -- Urine is dirty History of pansensitive E. coli and group B strep in the past Patient is also currently having menstrual cycle Rocephin for 48 hours --Prophylaxis VTE: Lovenox GI: None Lines: Peripheral Diet: N.p.o. Plan: Get EEG Continue with phenobarbital and transition to Ativan following that I am not certain whether the patient had seizure-like activity secondary to alcohol withdrawal especially given that the alcohol level about the time of presentation was 347 Follow-up repeat lactate, give the patient at least 2 and half-3 L of IV fluids. I would like to repeat the serum osmolality to confirm that it is 383. Start patient on thiamine and folic acid Magnesium and phosphorus being replaced Right upper quadrant ultrasound for positive Lezama sign I have personally spent 53 minutes of critical care time in the direct management of this patient. This is a life/limb threatening event. This includes time spent evaluating patient, direct bedside care, chart review, placing orders, interpretation of diagnostic studies, discussion with consultants, patient, and family members, as well as other required patient management activities. This time is exclusive of all separately billable procedures, and teaching time and separate from and in addition to any other critical care service time. History of Present Illness History of Present Illness 38-year-old female came to the ER because of 2 episodes of seizures at home Past medical history: Alcohol abuse, sciatica on gabapentin, anxiety/depression Per the patient she has been drinking 1/5 of vodka on a daily basis for approximately 2 weeks. She was drinking heavier before the reason she was drinking 1/5 is to titrate herself off of alcohol. At the time of examination patient was saturating 93-94% on room air. Heart rate was in the 120s to low 130s, blood pressure was in the 130s. Respiratory was in the high teens. She denies any fever or chills No vomiting, did have nausea. She has been complaining of palpitation. She had flushed skin on physical exam Denies any dysuria Complain of abdominal pain in the right upper quadrant. She usually does well on phenobarbital and Librium as per the patient She is also taking gabapentin for sciatica Social history: Lifetime non-smoker. Drinks 1/5 of alcohol on a daily basis Denies any illicit drug use Allergies Allergy/AdvReac Type Severity Reaction Status Date / Time lactose AdvReac Intermediate GI DISTRESS Verified 07/19/23 00:18 Home Medications Medication Instructions Recorded Confirmed Type mirtazapine 15 mg tablet 15 mg PO HS 01/15/22 09/18/23 History duloxetine 60 mg capsule,delayed 60 mg PO QAM 04/29/22 09/18/23 History release gabapentin 300 mg capsule 300 mg PO TID 05/23/22 09/18/23 History folic acid 1 mg tablet 1 mg PO DAILY 10/16/22 09/18/23 History propranolol 10 mg tablet 10 mg PO BID #30 tabs 11/11/22 09/18/23 Rx prazosin 1 mg capsule 3 mg PO HS 03/14/23 09/18/23 History buspirone 10 mg tablet 10 mg PO TID 04/29/23 09/18/23 History lorazepam 1 mg tablet 1 mg PO Q6H PRN withdrawal 08/21/23 09/18/23 Rx symptoms #5 tabs docusate sodium 100 mg capsule 100 mg PO UD PRN Constipation 09/18/23 09/18/23 History hydroxyzine HCl 25 mg tablet 25 mg PO QID PRN Anxiety 09/18/23 09/18/23 History multivitamin-iron 9 mg-folic acid 1 tab PO DAILY 09/18/23 09/18/23 History 400 mcg-calcium and minerals tablet chlordiazepoxide HCl 25 mg capsule 25 mg PO BID PRN anxiety #5 caps 09/22/23 Rx Patient History Medical History Seizure Hypophosphatemia Irritable bowel syndrome Hyponatremia Leukocytosis Elevated lactic acid level Alcoholic gastritis High anion gap metabolic acidosis Alcoholic ketoacidosis Alcohol withdrawal Alcoholic intoxication Sciatica Transaminitis Alcoholism Chest pain at rest History of intussusception Thrombocytopenia Tension headache Breast lump on left side at 11 o'clock position Hypomagnesemia Miscarriage PTSD (post-traumatic stress disorder) Pancreatitis Surgical History S/P dilation and curettage H/O foot surgery Previous section Family History Mother Depression Anxiety Brother Depression Anxiety Denies family history of Ovarian cancer Prostate cancer Diabetes Myocardial infarction Breast cancer Colorectal cancer Hypertension Social History Smoking Status: Never smoker Second Hand Exposure: No; Do You Dip or Chew Tobacco: No; Hx Alcohol Use: Yes Alcohol type: hard liquor Hx Substance Use: Yes Last Used Substance: Days (ago) Substance Use Type Other:: meth + on drug screen, denies any drug use Preferred Language: German Communication Ability: Effective Visual Impairment: No Limitations Hearing Ability: Normal 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 Beliefs That Will Affect Care: None marital status: Current Living Situation: Family Current Living Situation Comment: mom, dad, son 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[employer] How many Children do You have: 1 Feels Safe at Home: Yes Childhood Exposure to Second-Hand Smoke: No Diet: regular Dental Care, Regularly: Yes Physical Activity Frequency: 5-6 Times per Week Seatbelt Use: always Sunscreen Use: Yes Assistive Devices: None Review of Systems 2 Review of Systems: All systems reviewed & are unremarkable except as noted in HPI & below Physical Exam 2 Physical Exam: Constitutional: No acute distress HEENT: EOMI, PERRLA Respiratory system: Good air entry bilaterally, no wheeze, no rhonchi, no crackles CVS: S1-S2 positive, no murmurs or gallops, tachycardia Abdomen: Soft, nondistended, positive bowel sounds x4, right upper quadrant tenderness, positive Lezama Extremities: +2 pulses bilaterally radialis/ dorsalis pedis, no cyanosis, no edema Neuro: Awake alert oriented x3 Psych: Normal mood and affect G/U: No Peters Skin: Flushed Skin: no rashes, warm and dry Lymphatic: no cervical or axillary lymphadenopathy Results & Data Results & Data Vital Signs (Past 12 Hours) Vital Signs Temp Pulse Resp BP Pulse Ox O2 Del Method 12/11/23 13:53 92 Room Air 12/11/23 13:28 124 H 12/11/23 12:56 36.6 C 141 H 16 153/99 H 96 Room Air Laboratory Results 12/11/23 13:23 12/11/23 13:23 Coding Level of Care Code 06048 CRITICAL CARE 1ST 30-74M Diagnoses Seizures R56.9 Severe alcohol use disorder F10.20 PTSD (post-traumatic stress disorder) F43.10 Seizure-like activity R56.9 Elevated liver transaminase level R74.01
[2023-12-11] MEDS ORDERED: PHENobarbital sodium 65 MG/ML VIAL IM PRN ×2 (16:50→18:59)
[2023-12-11] MEDS: FOLIC ACID 1 MG in SYRINGE 9.8 ML IV SCH (16:52)
[2023-12-11] MEDS: cefTRIAXone SODIUM 2,000 MG/50 ML BAG IV SCH (16:52)
[2023-12-11] MEDS: POTASSIUM PHOSPHATE 21 MMOL in SODIUM CHLORIDE 0.9% 500 ML IV ONE (16:53)
[2023-12-11] MEDS: MAGNESIUM SULFATE / D5W 1 GM/100 ML BAG IV SCH (16:53)
[2023-12-11 17:17] LABS: Acetaminophen < 3 ug/ml (10-30); Salicylate < 3.0 mg/dl (3.0-30)
[2023-12-11] MEDS: PLASMA-LYTE A 1,000 ML IV SCH (18:16)
[2023-12-11] MEDS: PHENobarbital sodium 65 MG/ML VIAL IM SCH (18:20)
[2023-12-11] MEDS: THIAMINE HCL 100 MG TAB PO SCH (18:44)
[2023-12-11] MEDS ORDERED: Ativan IV Alcohol Withdrawal--Active Protocol IV PRN (18:57)
[2023-12-11] MEDS ORDERED: LORazepam 2 MG/1 ML VIAL IV PRN (18:57)
[2023-12-11] MEDS ORDERED: Ativan PO Alcohol Withdrawal--Active Protocol PO PRN (18:57)
[2023-12-11 20:27] LABS: BUN Creatinine Ratio 9.3 (10-20); Calcium 7.5 mg/dl (8.6-10.3); Creatinine Clr Calc Pharmacy 176.7 ml/min; Est GFR (African American) 137.8 ml/min; Est GFR (Non-African American) 118.9 ml/min; Potassium 3.6 mmol/L (3.5-5.1)
[2023-12-11] MEDS: busPIRone 5 MG TAB PO SCH (21:05)
[2023-12-11 21:53] LABS: Appearance Urine Clear (Clear); Bacteria Urine Automated None Seen (None Seen); Bilirubin Urine Negative (Negative); Blood Urine 1+ (Negative); Cast Urine Automated 0-2 /lpf (0-2); Color Urine Yellow; Epithelial Cell Urine Auto 0-2 /hpf (0-2); Glucose Urine UA Negative (Negative); Ketones Urine 2+ (Negative); Leukocyte Esterase Urine Negative (Negative); Nitrite Urine Negative (Negative); Protein Urine 1+ (Negative); Specific Gravity Urine 1.025 (1.000-1.030); Urobilinogen Urine Negative (Negative); WBC Urine Automated 0-5 /hpf (0-5); pH Urine 5.5 (4.5-7.5)
[2023-12-11 22:29] LABS: Amphetamines+Metham, Urine Neg (Neg); Barbiturates, Urine Pos (Neg); Benzodiazepine, Urine Neg (Neg); Cocaine, Urine Neg (Neg); Fentanyl, Urine Neg (Neg); MDMA (Ecstacy), Urine Neg (Neg); Marijuana, Urine Neg (Neg); Methadone, Urine Neg (Neg); Opiate, Urine Neg (Neg); Phencyclidine, Urine Neg (Neg)
--- NOTE | 2023-12-12 02:20 | Ultrasound Report ---
Exam(s): US RUQ EXAM: US Abdomen Limited, Right Upper Quadrant CLINICAL HISTORY: Reason for exam: Rule out cholecystitis. TECHNIQUE: Real-time ultrasound of the right upper quadrant with image documentation. COMPARISON: No relevant prior studies available. FINDINGS: Liver: The liver is of increased echogenicity.. No intrahepatic bile duct dilation. Gallbladder: No wall thickening.. No gallstones. Common bile duct: Unremarkable as visualized. No stones. The common bile duct measured 3 mm. Pancreas: The pancreas was not visualized due to overlying bowel gas. Right kidney: No stones. No hydronephrosis. IMPRESSION: Limited exam. The liver is of increased echogenicity which may be due to fatty infiltration and/or hepatocellular disease. Electronically signed by: Vahe Napier MD 12/12/23 02:19 AM
[2023-12-12] MEDS: LORazepam 2 MG/1 ML VIAL IV PRN (03:10)
[2023-12-12] MEDS: ACETAMINOPHEN 325 MG TAB PO PRN (03:36)
[2023-12-12] MEDS: ACETAMINOPHEN 325 MG TAB ONE (03:39)
[2023-12-12] MEDS: FAMOTIDINE 20MG IV PUSH 20 MG/5 ML SYR IV STA (03:52)
[2023-12-12 04:41] LABS: Basophils # (auto) 0.04 K/uL (0.00-0.20); Basophils % (auto) 0.8 %; Eosinophils # (auto) 0.03 K/uL (0.00-0.50); Eosinophils % (auto) 0.6 %; Hematocrit (blood only) 28.3 % (37.0-47.0); Immature Granulocytes # (auto) 0.03 K/uL (0.01-0.20); Immature Granulocytes % (auto) 0.6 %; Lymphocytes # (auto) 1.18 K/uL (1.20-3.40); Lymphocytes % (auto) 24.1 %; Mean Corpuscular Hgb Conc 35.3 g/dL (32.0-36.0); Mean Corpuscular Volume 87.6 fL (80.0-100.0); Mean Platelet Volume 9.1 fL (9.4-12.4); Monocytes # (auto) 0.53 K/uL (0.11-0.59); Monocytes % (auto) 10.8 %; Neutrophils # (auto) 3.08 K/uL (1.40-6.50); Neutrophils % (auto) 63.1 %; Platelet Count 380 K/uL (130-400); RDW Coefficient of Variation 15.1 % (11.5-14.5); RDW Standard Deviation 48.7 fL (36.4-46.3); Red Blood Count 3.23 M/uL (4.20-5.40); White Blood Count 4.89 K/ul (4.8-10.8)
[2023-12-12 04:50] LABS: Albumin Level 3.5 gm/dl (3.4-5.0); BUN Creatinine Ratio 7.8 (10-20); Bilirubin Direct 0.2 mg/dl (0-0.2); Bilirubin,Total 0.9 mg/dl (0.2-1.0); Calcium 7.1 mg/dl (8.6-10.3); Creatinine Clr Calc Pharmacy 187.1 ml/min; Est GFR (African American) 140.4 ml/min; Est GFR (Non-African American) 121.1 ml/min; Potassium 3.5 mmol/L (3.5-5.1); Total Protein 5.5 gm/dl (6.0-8.3)
[2023-12-12 07:09] LABS: Basophils # (auto) 0.04 K/uL (0.00-0.20); Basophils % (auto) 0.6 %; Eosinophils # (auto) 0.02 K/uL (0.00-0.50); Eosinophils % (auto) 0.3 %; Hematocrit (blood only) 30.1 % (37.0-47.0); Hemoglobin 10.2 g/dl (12.0-16.0); Immature Granulocytes # (auto) 0.02 K/uL (0.01-0.20); Immature Granulocytes % (auto) 0.3 %; Lymphocytes # (auto) 2.09 K/uL (1.20-3.40); Lymphocytes % (auto) 32.2 %; Mean Corpuscular Hemoglobin 30.4 pg (25.0-34.0); Mean Corpuscular Hgb Conc 33.9 g/dL (32.0-36.0); Mean Corpuscular Volume 89.9 fL (80.0-100.0); Mean Platelet Volume 9.1 fL (9.4-12.4); Monocytes # (auto) 0.62 K/uL (0.11-0.59); Monocytes % (auto) 9.6 %; Platelet Count 357 K/uL (130-400); RDW Coefficient of Variation 15.5 % (11.5-14.5); RDW Standard Deviation 50.5 fL (36.4-46.3); Red Blood Count 3.35 M/uL (4.20-5.40); White Blood Count 6.49 K/ul (4.8-10.8)
[2023-12-12 07:29] LABS: Phosphorus 1.9 mg/dl (2.5-4.9)
--- NOTE | 2023-12-12 07:39 | Hospitalist Progress Note ---
Date of Service December 12, 2023 Assessment & Plan (1) Seizures: Plan: recurrent alcohol withdrawal/substance induced Patient with a history of alcohol withdrawal seizures in the past. Past history of methamphetamine use which she denies recent use of. Talk screen does not show any methamphetamine Alcohol level on admission 347, last drink approximately 10 AM on the day of admission. Typical drinking 1/5 of alcohol a day attempting to cut back in the last 24 hours. Unclear whether patient had a seizure or not this is by her own description family does not corroborate story CThead negative, urine tox no substances of abuse, barbiturates from treatment. Transition out of the ICU transition from the phenobarb protocol to Librium and gabapentin. (She takes gabapentin chronically) - Transaminases present suspect alcohol hepatitis. LFTs trended. US maybe fatty liver (2) Alcohol withdrawal: Plan: Patient reportedly has outpatient alcohol cessation counseling already in place - Thiamine, Folic acid ordered Plan DVT prevention only early ambulation Downgrade from ICU required a few and action on all orders medications and laboratories Admission and Anticipated Discharge Date Admission Date: December 11, 2023 Subjective Patient is Groggy but awakens. Vital signs are stable. She remains tremulous. Critical care is discontinued phenobarbital protocol Physical Exam Physical Exam: She is awake she is sedated she responds properly to commands spontaneously moves all extremities Cardiac exam is regular with no murmurs Lungs are clear with good air movement abdomen normal active bowel sounds and extremities are without edema Results & Data Results & Data Vital Signs (Past 12 Hours) Vital Signs Temp Pulse Pulse Resp BP BP Pulse Ox 12/12/23 06:00 91 H 91 H 111/94 98 12/12/23 05:00 97.7 F 102 H 14 116/63 97 12/12/23 04:00 107 H 15 118/68 96 12/12/23 03:40 102 H 15 122/71 96 12/12/23 03:00 97.9 F 120 H 14 127/67 96 12/12/23 02:00 101 H 16 114/72 95 12/12/23 01:00 107 H 15 116/73 95 12/12/23 00:00 97.9 F 12/11/23 23:57 99 H 16 122/71 97 12/11/23 23:54 105 H 12/11/23 23:00 108 H 16 107/63 96 12/11/23 22:53 98.1 F 12/11/23 22:00 108 H 18 121/66 98 12/11/23 21:00 97.9 F 102 H 20 112/72 98 12/11/23 20:00 97.9 F 104 H 20 125/69 98 O2 Del Method O2 Flow Rate 12/12/23 06:00 Nasal Cannula 2 12/12/23 05:00 Nasal Cannula 2 12/12/23 04:00 Nasal Cannula 2 12/12/23 03:40 Nasal Cannula 2 12/12/23 03:00 Room Air 12/12/23 02:00 Room Air 12/12/23 01:00 Room Air 12/12/23 00:00 12/11/23 23:57 Room Air 12/11/23 23:54 12/11/23 23:00 Room Air 12/11/23 22:53 12/11/23 22:00 Room Air 12/11/23 21:00 Room Air 12/11/23 20:00 Nasal Cannula 2 Laboratory Results Reviewed CBC reviewed chemistry PG Care Time/CCT Total # of Minutes Spent Total Time Spent with Patient: Total time spent is greater than 50% in coordination of care (as documented) at patient's floor/unit and/or counseling patient: Coding Level of Care Code 11911 SUB INP/OBS CARE 3/50MIN Diagnoses Seizures R56.9 Alcohol withdrawal F10.939 Complication of substance-induced condition: with unspecified complication (2) Alcohol withdrawal Complication of substance-induced condition: with unspecified complication Qualified Code(s): F10.939 - Alcohol use, unspecified with withdrawal, unspecified
[2023-12-12] MEDS ORDERED: POTASSIUM PHOS 3 MMOL/1 ML INFUSION IV STA (07:42)
--- NOTE | 2023-12-12 07:47 | Critical Care Progress Note ---
Date of Service December 12, 2023 Assessment & Plan (1) Seizures: (2) Severe alcohol use disorder: (3) PTSD (post-traumatic stress disorder): (4) Seizure-like activity: (5) Elevated liver transaminase level: Plan Reason Critically Ill: 38-year-old female came to the ER because of 2 episodes of seizures at home. In the ICU for alcohol withdrawal with withdrawal seizures Past medical history: Alcohol abuse, sciatica on gabapentin, anxiety/depression Neuro - [facility]: Negative --Seizures Tonic-clonic as per the signout Question alcohol withdrawal ? Sodium 132, TSH within normal limit Glucose, calcium within normal limit CT head 12/11/2023: Negative for any acute intracranial abnormalities Alcohol level 347 at presentation, in the past her alcohol level has been as high as 424 --Anxiety/depression On duloxetine as well as buspirone at home Cardiac - --Sinus tachycardia Likely from dehydration and questionable withdrawal from alcohol EKG from 12/12/2023 shows normal sinus rhythm, T wave inversions are appreciated in V1-V3 but the ST depressions as well as T wave inversions in lead III aVF have resolved EKG 12/11/2023, 1305: Sinus tachycardia, normal axis, T wave inversions appreciated in leads III as well as lateral leads with some ST depression. --Prolonged QTc Avoid QT prolonging medication Respiratory - -- No acute issues GI - --Right upper quadrant tenderness Positive Lezama's CT abdomen pelvis in August 2023 did not show any signs of gallstone Lipase within normal limit -- Transaminitis Alk phos within normal limit RENAL/LYTES - -- HAGMA Delta-delta: Pure anion gap Likely sec to lactic acidosis Monitor -- Hyponatremia Hyperosmolar, hypovolemic T 383, calculated serum osmolality 369, osmolar gap of 13.6 which is only mildly elevated - -- No acute issues ENDO - -- ICU hypoglycemia protocol HEME - -- Normocytic anemia Monitor H&H -- S/p thrombocytosis Likely secondary to volume constriction ID - -- Urine is dirty History of pansensitive E. coli and group B strep in the past Patient is also currently having menstrual cycle Rocephin for 48 hours --Prophylaxis VTE: Heparin GI: Pantoprazole Lines: Peripheral Diet: Liver Plan: In/out: +6 L, urine output 1050 I will start the patient on Librium protocol Okay to still continue with IV Ativan as per CIWA protocol DC IV fluids Give IV thiamine 5 mg every 8 hours for 2 days and then 100 mg p.o. daily Continue with folic acid Continue with home dose gabapentin Phosphorus and potassium being replaced Case was discussed with primary team Please note the above document was generated using voice recognition software. It may contain grammatical, syntax or spelling errors.Any formal questions or concerns about the content, text or information contained within the body of this dictation should be directly addressed to the provider for clarification. Admission and Anticipated Discharge Date Admission Date: December 11, 2023 Subjective Patient seen and examined at bedside. No acute distress. Overnight patient got a gram of Ativan for her CIWA score She had an episode of chest pain overnight as well, EKG does not show any significant change other than at presentation Still complains of mild right upper quadrant abdominal pain which is improved from before Mild nausea, no vomiting No visual, auditory hallucination. Does complain of some tingling in the arms and legs Review of Systems 2 Review of Systems: All systems reviewed & are unremarkable except as noted in Subjective Physical Exam 2 Physical Exam: Constitutional: No acute distress HEENT: EOMI, PERRLA Respiratory system: Good air entry bilaterally, no wheeze, no rhonchi, no crackles CVS: S1-S2 positive, no murmurs or gallops Abdomen: Soft, nondistended, positive bowel sounds x4, right upper quadrant tenderness, positive Lezama Extremities: +2 pulses bilaterally radialis/ dorsalis pedis, no cyanosis, no edema Neuro: Awake alert oriented x3 Psych: Normal mood and affect G/U: No Peters Skin: Flushed Skin: no rashes, warm and dry Lymphatic: no cervical or axillary lymphadenopathy Results & Data Results & Data Vital Signs (Past 12 Hours) Vital Signs Temp Pulse Pulse Resp BP BP Pulse Ox 12/12/23 06:00 91 H 91 H 111/94 98 12/12/23 05:00 36.5 C 102 H 14 116/63 97 12/12/23 04:00 107 H 15 118/68 96 12/12/23 03:40 102 H 15 122/71 96 12/12/23 03:00 36.6 C 120 H 14 127/67 96 12/12/23 02:00 101 H 16 114/72 95 12/12/23 01:00 107 H 15 116/73 95 12/12/23 00:00 36.6 C 12/11/23 23:57 99 H 16 122/71 97 12/11/23 23:54 105 H 12/11/23 23:00 108 H 16 107/63 96 12/11/23 22:53 36.7 C 12/11/23 22:00 108 H 18 121/66 98 12/11/23 21:00 36.6 C 102 H 20 112/72 98 12/11/23 20:00 36.6 C 104 H 20 125/69 98 O2 Del Method O2 Flow Rate 12/12/23 06:00 Nasal Cannula 2 12/12/23 05:00 Nasal Cannula 2 12/12/23 04:00 Nasal Cannula 2 12/12/23 03:40 Nasal Cannula 2 12/12/23 03:00 Room Air 12/12/23 02:00 Room Air 12/12/23 01:00 Room Air 12/12/23 00:00 12/11/23 23:57 Room Air 12/11/23 23:54 12/11/23 23:00 Room Air 12/11/23 22:53 12/11/23 22:00 Room Air 12/11/23 21:00 Room Air 12/11/23 20:00 Nasal Cannula 2 Laboratory Results 12/12/23 06:45 12/12/23 04:00 Coding Level of Care Code 91304 SUB INP/OBS CARE 3/50MIN Diagnoses Seizures R56.9 Severe alcohol use disorder F10.20 PTSD (post-traumatic stress disorder) F43.10 Seizure-like activity R56.9 Elevated liver transaminase level R74.01
[2023-12-12 08:15] LABS: Magnesium 1.9 mg/dl (1.7-2.4)
[2023-12-12] MEDS: POTASSIUM PHOSPHATE 21 MMOL in SODIUM CHLORIDE 0.9% 500 ML IV ONE (08:26)
[2023-12-12] MEDS: PROPRANOLOL HCL 10 MG TAB PO SCH (08:27)
[2023-12-12] MEDS: GABAPENTIN 300 MG CAP PO SCH (08:27)
[2023-12-12] MEDS: THIAMINE HCL 100 MG in SYRINGE 9 ML IV SCH (08:33)
[2023-12-12] MEDS ORDERED: FOLIC ACID 1 MG in SYRINGE 9.8 ML IV SCH (09:00)
--- NOTE | 2023-12-12 09:41 | Neurology Consultation ---
Date of Consultation December 12, 2023 Assessment & Plan (1) Seizures: History of Present Illness Attending Physician: Justin Bustamante MD History of Present Illness pt this morning feeling better. no seizures anymore. no confusion, pt speaking well. pt with prior multiple rehab for drug and alcohol abuse. pt again had high level of alcohol and had seizure at home. chart reviewed. admission HPi: Radha is a 38-year-old female with past medical history of alcohol abuse, multiple admissions for withdrawal with a history of seizures, recent rehab stay who presents for alcohol detox with reports of 2 seizures this morning. Radha reports that she has been drinking around 1/5 of vodka a day for at least a week. She got out of rehab approximately 2 weeks ago. She has been attempting to cut back in the last 24 hours. This morning she had 2 episodes where she lost consciousness and reportedly seized per her family and was brought to the ER. EtOH 347 on admission. Lactate is elevated at 8.4 on admission. Patient does not remember the episode, but woke up incontinent of urine. She has had 2 prior withdrawal seizures in the past. She reports that she has generally done well on both phenobarbital and Librium in the past. She reports that she has not had any seizures outside of alcohol use/in the setting of alcohol withdrawal. She denies any recreational drug or substance use. Denies marijuana use. Denies narcotic/pain medication use. Does have a past history of methamphetamine use, denies use in the last week at time of admission. Urine tox pending. Sodium on admission is 132. 1Alcohol level is 300s on admission. Last drink was 10 AM, shortly shortly before seizure however she has been attempting to taper her alcohol consumption. Past admissions with EtOH . She thinks her first seizure was around 10:00 and second seizure was around 1111 30. Denies fever. Endorses mild nausea. Denies cough. Allergies Allergy/AdvReac Type Severity Reaction Status Date / Time lactose AdvReac Intermediate GI DISTRESS Verified 07/19/23 00:18 Home Medications Medication Instructions Recorded Confirmed Type mirtazapine 15 mg tablet 15 mg PO HS 01/15/22 09/18/23 History duloxetine 60 mg capsule,delayed 60 mg PO QAM 04/29/22 09/18/23 History release gabapentin 300 mg capsule 300 mg PO TID 05/23/22 09/18/23 History folic acid 1 mg tablet 1 mg PO DAILY 10/16/22 09/18/23 History propranolol 10 mg tablet 10 mg PO BID #30 tabs 11/11/22 09/18/23 Rx prazosin 1 mg capsule 3 mg PO HS 03/14/23 09/18/23 History buspirone 10 mg tablet 10 mg PO TID 04/29/23 09/18/23 History lorazepam 1 mg tablet 1 mg PO Q6H PRN withdrawal 08/21/23 09/18/23 Rx symptoms #5 tabs docusate sodium 100 mg capsule 100 mg PO UD PRN Constipation 09/18/23 09/18/23 History hydroxyzine HCl 25 mg tablet 25 mg PO QID PRN Anxiety 09/18/23 09/18/23 History multivitamin-iron 9 mg-folic acid 1 tab PO DAILY 09/18/23 09/18/23 History 400 mcg-calcium and minerals tablet chlordiazepoxide HCl 25 mg capsule 25 mg PO BID PRN anxiety #5 caps 09/22/23 Rx Patient History Medical History Seizure Hypophosphatemia Irritable bowel syndrome Hyponatremia Leukocytosis Elevated lactic acid level Alcoholic gastritis High anion gap metabolic acidosis Alcoholic ketoacidosis Alcohol withdrawal Alcoholic intoxication Sciatica Transaminitis Alcoholism Chest pain at rest History of intussusception Thrombocytopenia Tension headache Breast lump on left side at 11 o'clock position Hypomagnesemia Miscarriage PTSD (post-traumatic stress disorder) Pancreatitis Surgical History S/P dilation and curettage H/O foot surgery Previous section Family History Mother Depression Anxiety Brother Depression Anxiety Denies family history of Ovarian cancer Prostate cancer Diabetes Myocardial infarction Breast cancer Colorectal cancer Hypertension Social History Smoking Status: Never smoker Second Hand Exposure: No; Do You Dip or Chew Tobacco: No; Hx Alcohol Use: Yes Alcohol type: hard liquor Hx Substance Use: Yes Last Used Substance: Unknown Substance Use Type Other:: meth + on drug screen, denies any drug use Preferred Language: Samoan Communication Ability: Effective Visual Impairment: No Limitations Hearing Ability: Normal Substation Design Draftsperson Required: No Beliefs That Will Affect Care: Hoahaoism Hoahaoism Beliefs: Pt yarsani marital status: Current Living Situation: Family Current Living Situation Comment: Parents and son 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[employer] How many Children do You have: 1 Feels Safe at Home: Yes Childhood Exposure to Second-Hand Smoke: No Diet: regular Dental Care, Regularly: Yes Physical Activity Frequency: 5-6 Times per Week Seatbelt Use: always Sunscreen Use: Yes Assistive Devices: None Exam (Neuro) Physical Exam: HEENT: normocephalic grossly Neuro: Mental: AOx4, fluent speech, normal comprehension, no apraxia, no neglect CN: PERRL, Full EOM, symmetric face, midline T/U/P, Motor: No abnormal movements, normal tone, 5/5 t/o bilaterally grossly. Sens: intact to touch b/l grossly Coord: intact grossly. DTR: 2+ sym b/l Gait:deferred. Impression: 38 yo female with alcohol withdrawal and intoxication seizure events. pt overall stable from seizure stand point. Recommendations: continue alcohol withdrawal protocol as now. no need for EEG ok to continue neurontin seizure precaution. not much to add from neurology please call again if new question. Chart reviewed I have spent more than 50% educating patient about potential diagnosis and neurological evaluation and coordinating care with patient's treatment team. Total time spent (including chart review and coordination of care): 45 min (this includes chart review). Results & Data Vital Signs (Past 12 Hours) Vital Signs Temp Pulse Pulse Resp BP BP Pulse Ox 12/12/23 08:00 123/70 12/12/23 08:00 88 12/12/23 07:57 86 0 L 100 12/12/23 07:09 93 H 0 L 99 12/12/23 07:00 127/75 12/12/23 06:51 90 0 L 98 12/12/23 06:03 90 0 L 99 12/12/23 06:00 111/64 12/12/23 06:00 111/64 12/12/23 06:00 91 H 91 H 111/94 98 12/12/23 05:57 91 H 0 L 98 12/12/23 05:18 99 H 0 L 96 12/12/23 05:00 36.5 C 102 H 14 116/63 97 12/12/23 04:12 99 H 0 L 98 12/12/23 04:00 118/68 12/12/23 04:00 118/68 12/12/23 04:00 107 H 15 118/68 96 12/12/23 03:54 107 H 0 L 96 12/12/23 03:40 102 H 15 122/71 96 12/12/23 03:39 122/71 12/12/23 03:39 122/71 12/12/23 03:39 122/71 12/12/23 03:39 104 H 0 L 95 12/12/23 03:00 124/67 12/12/23 03:00 124/67 12/12/23 03:00 124/67 12/12/23 03:00 109 H 0 L 94 12/12/23 03:00 36.6 C 120 H 14 127/67 96 12/12/23 02:24 108 H 0 L 93 12/12/23 02:00 114/72 12/12/23 02:00 101 H 16 114/72 95 12/12/23 01:51 104 H 0 L 92 12/12/23 01:06 107 H 0 L 93 12/12/23 01:00 116/73 12/12/23 01:00 107 H 15 116/73 95 12/12/23 00:57 102 H 0 L 94 12/12/23 00:06 95 H 0 L 99 12/12/23 00:00 122/71 12/12/23 00:00 36.6 C 12/11/23 23:57 99 H 16 122/71 97 12/11/23 23:54 102 H 0 L 98 12/11/23 23:54 105 H 12/11/23 23:21 102 H 0 L 97 12/11/23 23:00 107/63 12/11/23 23:00 108 H 16 107/63 96 12/11/23 22:53 36.7 C 12/11/23 22:33 96 H 0 L 96 12/11/23 22:06 121/66 12/11/23 22:00 104 H 0 L 96 12/11/23 22:00 108 H 18 12166 98 O2 Del Method O2 Flow Rate 12/12/23 08:00 09/13/24 08:00 12/12/23 07:57 12/12/23 07:09 12/12/23 07:00 12/12/23 06:51 12/12/23 06:03 12/12/23 06:00 12/12/23 06:00 12/12/23 06:00 Nasal Cannula 2 12/12/23 05:57 12/12/23 05:18 12/12/23 05:00 Nasal Cannula 2 12/12/23 04:12 12/12/23 04:00 12/12/23 04:00 12/12/23 04:00 Nasal Cannula 2 12/12/23 03:54 12/12/23 03:40 Nasal Cannula 2 12/12/23 03:39 12/12/23 03:39 12/12/23 03:39 12/12/23 03:39 12/12/23 03:00 12/12/23 03:00 12/12/23 03:00 12/12/23 03:00 12/12/23 03:00 Room Air 12/12/23 02:24 12/12/23 02:00 12/12/23 02:00 Room Air 12/12/23 01:51 12/12/23 01:06 12/12/23 01:00 12/12/23 01:00 Room Air 12/12/23 00:57 12/12/23 00:06 12/12/23 00:00 12/12/23 00:00 12/11/23 23:57 Room Air 12/11/23 23:54 12/11/23 23:54 12/11/23 23:21 12/11/23 23:00 12/11/23 23:00 Room Air 12/11/23 22:53 12/11/23 22:33 12/11/23 22:06 12/11/23 22:00 12/11/23 22:00 Room Air PG Care Time/CCT Total # of Minutes Spent Total Time Spent with Patient: Total time spent is greater than 50% in coordination of care (as documented) at patient's floor/unit and/or counseling patient: Coding Level of Care Code 45865 IN/OBS CONSULT LVL 3,45M Diagnoses Seizures R56.9
[2023-12-12] MEDS: chlordiazePOXIDE HCl 25 MG CAP PO SCH (11:24)
[2023-12-12] MEDS: POTASSIUM CHLORIDE 20 MEQ/15 ML UDC PO STA (11:27)
[2023-12-12] MEDS: PANTOprazole 40 MG TAB PO SCH (11:27)
[2023-12-12] MEDS: chlordiazePOXIDE ALCOHOL WITHDRAWL 50MG PO STA (11:27)
[2023-12-12] MEDS: HEPARIN SOD 5,000 UNIT/0.5 ML VIAL SQ SCH (11:27)
[2023-12-12] MEDS ORDERED: GABAPENTIN 1200MG ALCOHOL WITHDRAWAL LOAD PO SCH (11:45)
[2023-12-12] MEDS: GABAPENTIN 600 MG TAB PO ONE (13:28)
--- NOTE | 2023-12-12 13:52 | Electrocardiogram Report ---
Test Reason : Blood Pressure : */* mmHG Vent. Rate : 107 BPM Atrial Rate : 107 BPM P-R Int : 128 ms QRS Dur : 88 ms QT Int : 396 ms P-R-T Axes : 38 24 -47 degrees QTcB Int : 528 ms Sinus tachycardia T wave abnormality, consider anterior ischemia Prolonged QT Abnormal ECG When compared with ECG of 11-Dec-2023 13:05, T wave inversion no longer evident in Lateral leads Confirmed by James Sheikh ([id number]) on 12/12/2023 1:51:58 PM Referred By: REFERRED SELF Confirmed By: James Sheikh
--- NOTE | 2023-12-12 14:04 | Electrocardiogram Report ---
Test Reason : Blood Pressure : */* mmHG Vent. Rate : 78 BPM Atrial Rate : 78 BPM P-R Int : 130 ms QRS Dur : 90 ms QT Int : 482 ms P-R-T Axes : 8 45 13 degrees QTcB Int : 549 ms Normal sinus rhythm T wave abnormality, consider anterior ischemia Prolonged QT Abnormal ECG When compared with ECG of 12-Dec-2023 03:20, (unconfirmed) Nonspecific T wave abnormality, improved in Inferior leads Confirmed by James Sheikh ([id number]) on 12/12/2023 2:03:46 PM Referred By: REFERRED SELF Confirmed By: Jamse Sheikh
[2023-12-12] MEDS ORDERED: THIAMINE HCL 500 MG in SODIUM CHLORIDE 0.9% 50 ML IV SCH (17:00)
[2023-12-12] MEDS: GABAPENTIN 600 MG TAB PO SCH (17:42)
[2023-12-12] MEDS: LORazepam 2 MG/1 ML VIAL IV STA (20:11)
[2023-12-13 07:05] LABS: Basophils # (auto) 0.03 K/uL (0.00-0.20); Basophils % (auto) 0.9 %; Eosinophils # (auto) 0.04 K/uL (0.00-0.50); Eosinophils % (auto) 1.1 %; Hemoglobin 10.8 g/dl (12.0-16.0); Immature Granulocytes # (auto) 0.02 K/uL (0.01-0.20); Immature Granulocytes % (auto) 0.6 %; Lymphocytes # (auto) 1.38 K/uL (1.20-3.40); Lymphocytes % (auto) 39.5 %; Mean Corpuscular Hemoglobin 30.1 pg (25.0-34.0); Mean Corpuscular Hgb Conc 32.7 g/dL (32.0-36.0); Mean Corpuscular Volume 91.9 fL (80.0-100.0); Mean Platelet Volume 9.6 fL (9.4-12.4); Monocytes # (auto) 0.37 K/uL (0.11-0.59); Monocytes % (auto) 10.6 %; Neutrophils # (auto) 1.65 K/uL (1.40-6.50); Neutrophils % (auto) 47.3 %; Platelet Count 342 K/uL (130-400); RDW Coefficient of Variation 15.4 % (11.5-14.5); RDW Standard Deviation 51.6 fL (36.4-46.3); Red Blood Count 3.59 M/uL (4.20-5.40); White Blood Count 3.49 K/ul (4.8-10.8)
[2023-12-13 07:19] LABS: BUN Creatinine Ratio 6.3 (10-20); Calcium 8.6 mg/dl (8.6-10.3); Creatinine Clr Calc Pharmacy 152.6 ml/min; Phosphorus 1.7 mg/dl (2.5-4.9); Potassium 3.7 mmol/L (3.5-5.1)
[2023-12-13 07:27] LABS: Appearance Urine Clear (Clear); Bilirubin Urine Negative (Negative); Blood Urine Negative (Negative); Color Urine Yellow; Glucose Urine UA Negative (Negative); Ketones Urine 2+ (Negative); Leukocyte Esterase Urine Negative (Negative); Nitrite Urine Negative (Negative); Protein Urine Negative (Negative); Specific Gravity Urine 1.009 (1.000-1.030); Urobilinogen Urine Negative (Negative); pH Urine 7.5 (4.5-7.5)
[2023-12-13] MEDS: FOLIC ACID 1 MG TAB PO SCH (08:08)
[2023-12-13] MEDS: GABAPENTIN 600 MG TAB PO SCH (08:08)
[2023-12-13] MEDS: LORazepam 2 MG/1 ML VIAL IV PRN (08:43)
[2023-12-13] MEDS ORDERED: SODIUM PHOSPHATE 3 MMOL/1 ML INFUSION IV STA (11:52)
--- NOTE | 2023-12-13 11:56 | Hospitalist Progress Note ---
Date of Service December 13, 2023 Assessment & Plan (1) Seizures: Plan: recurrent alcohol withdrawal/substance induced Patient with a history of alcohol withdrawal seizures in the past. Past history of methamphetamine use which she denies recent use of. Tox screen does not show any methamphetamine Alcohol level on admission 347, last drink approximately 10 AM on the day of admission. Typical drinking 1/5 of alcohol a day attempting to cut back in the last 24 hours. Unclear whether patient had a seizure or not this is by her own description family does not corroborate story Neurology does not feel any additional workup required for seizures CThead negative, urine tox no substances of abuse, barbiturates from treatment. Tapering Librium and gabapentin. (She takes gabapentin chronically) - Transaminases present suspect alcohol hepatitis. LFTs trended. US maybe fatty liver low phos please replete (2) Alcohol withdrawal: Plan: Patient reportedly has outpatient alcohol cessation counseling already in place - Thiamine, Folic acid continue Plan DVT prevention only early ambulation Admission and Anticipated Discharge Date Admission Date: December 11, 2023 Subjective Patient is Groggy but awakens. Vital signs are stable. her tremulousness has improved asking for home medications that help night terrors tapering Librium and gabapentin Physical Exam Physical Exam: She is awake she is sedated she responds properly to commands spontaneously moves all extremities Cardiac exam is regular with no murmurs Lungs are clear with good air movement abdomen normal active bowel sounds and extremities are without edema Results & Data Results & Data Vital Signs (Past 12 Hours) Vital Signs Temp Pulse Pulse Resp BP BP Pulse Ox 12/13/23 11:20 98.6 F 99 H 18 121/81 96 12/13/23 07:27 99.1 F 101 H 18 138/97 98 12/13/23 07:11 80 12/13/23 02:41 98.2 F 88 16 106/69 96 O2 Del Method 12/13/23 11:20 Room Air 12/13/23 07:27 Room Air 12/13/23 07:11 12/13/23 02:41 Room Air Laboratory Results review cbc review chemistry , low phos will replete PG Care Time/CCT Total # of Minutes Spent Total Time Spent with Patient: Total time spent is greater than 50% in coordination of care (as documented) at patient's floor/unit and/or counseling patient: Coding Level of Care Code 71804 SUB INP/OBS CARE 2/35MIN Diagnoses Seizures R56.9 Alcohol withdrawal F10.939 Complication of substance-induced condition: with unspecified complication (2) Alcohol withdrawal Complication of substance-induced condition: with unspecified complication Qualified Code(s): F10.939 - Alcohol use, unspecified with withdrawal, unspecified
[2023-12-13] MEDS: chlordiazePOXIDE HCl 25 MG CAP PO SCH (12:42)
[2023-12-13] MEDS: SODIUM PHOSPHATE 15 MMOL in SODIUM CHLORIDE 0.9% 250 ML IV ONE (12:46)
[2023-12-13] MEDS: PRAZOSIN HCL 1 MG CAP PO SCH (20:22)
[2023-12-13] MEDS: MIRTAZAPINE TAB 15 MG TAB PO SCH (20:22)
[2023-12-13] MEDS: POLYETHYLENE (MIRALAX) 17 GM PACK PO PRN (20:44)
[2023-12-14 07:16] LABS: Hematocrit (blood only) 30.8 % (37.0-47.0); Hemoglobin 10.4 g/dl (12.0-16.0); Mean Corpuscular Hemoglobin 30.6 pg (25.0-34.0); Mean Corpuscular Hgb Conc 33.8 g/dL (32.0-36.0); Mean Corpuscular Volume 90.6 fL (80.0-100.0); Platelet Count 248 K/uL (130-400); RDW Coefficient of Variation 15.4 % (11.5-14.5); RDW Standard Deviation 51.4 fL (36.4-46.3); White Blood Count 3.03 K/ul (4.8-10.8)
[2023-12-14 07:26] VITALS: TEMP 98.2
[2023-12-14 07:33] LABS: Basophils # (auto) 0.03 K/uL (0.00-0.20); Eosinophils # (auto) 0.08 K/uL (0.00-0.50); Eosinophils % (auto) 2.6 %; Immature Granulocytes # (auto) 0.03 K/uL (0.01-0.20); Lymphocytes # (auto) 1.53 K/uL (1.20-3.40); Lymphocytes % (auto) 50.5 %; Monocytes # (auto) 0.28 K/uL (0.11-0.59); Monocytes % (auto) 9.2 %; Neutrophils # (auto) 1.08 K/uL (1.40-6.50); Neutrophils % (auto) 35.7 %; Polychromasia 1+; Stomatocytes 1+
[2023-12-14 07:52] LABS: BUN Creatinine Ratio 8.6 (10-20); Calcium 8.9 mg/dl (8.6-10.3); Creatinine Clr Calc Pharmacy 165.5 ml/min; Est GFR (African American) 134.6 ml/min; Est GFR (Non-African American) 116.1 ml/min; Phosphorus 3.4 mg/dl (2.5-4.9); Potassium 3.5 mmol/L (3.5-5.1)
[2023-12-14] MEDS: DULoxetine HCL 60 MG CAP PO SCH (08:52)
[2023-12-14 11:21] VITALS: RESP 20; O2SAT 97
[2023-12-14] MEDS: chlordiazePOXIDE HCl 25 MG CAP PO SCH (12:32)
[2023-12-14] MEDS: GABAPENTIN 600 MG TAB PO SCH (12:32)
[2023-12-14 14:06] VITALS: BP 109/70; PULSE 96
[2023-12-14 15:23] LABS: Amobarbital, Urine Conf NEGATIVE ng/mL (<100); Butalbital, Urine NEGATIVE ng/mL (<100); Pentobarbital, Urine Conf NEGATIVE ng/mL (<100); Phenobarbital, Urine >5000 ng/mL (<100); Secobarbital, Urine Conf NEGATIVE ng/mL (<100)
--- NOTE | 2023-12-14 16:54 | Discharge Summary ---
Discharge Summary Date of Service December 14, 2023 Principal Dx & Hospital Course #1 = Principal Diagnosis (1) Alcohol withdrawal: recurrent alcohol withdrawal/substance induced Patient with a history of alcohol withdrawal seizures in the past. Past history of methamphetamine use which she denies recent use of. Tox screen does not show any methamphetamine Alcohol level on admission 347, last drink approximately 10 AM on the day of admission. Typical drinking 1/5 of alcohol a day attempting to cut back in the last 24 hours. Unclear whether patient had a seizure or not this is by her own description family does not corroborate story Neurology does not feel any additional workup required for seizures CThead negative, urine tox no substances of abuse, barbiturates from treatment. Tapering Librium and gabapentin. (She takes gabapentin chronically) - Transaminases present suspect alcohol hepatitis. LFTs trended. US maybe fatty liver low phos please replete bedside counselling regarding cessation Admission HPI Per Admitting Provider Radha is a 38-year-old female with past medical history of alcohol abuse, multiple admissions for withdrawal with a history of seizures, recent rehab stay who presents for alcohol detox with reports of 2 seizures this morning. Radha reports that she has been drinking around 1/5 of vodka a day for at least a week. She got out of rehab approximately 2 weeks ago. She has been attempting to cut back in the last 24 hours. This morning she had 2 episodes where she lost consciousness and reportedly seized per her family and was brought to the ER. EtOH 347 on admission. Lactate is elevated at 8.4 on admission. Patient does not remember the episode, but woke up incontinent of urine. She has had 2 prior withdrawal seizures in the past. She reports that she has generally done well on both phenobarbital and Librium in the past. She reports that she has not had any seizures outside of alcohol use/in the setting of alcohol withdrawal. She denies any recreational drug or substance use. Denies marijuana use. Denies narcotic/pain medication use. Does have a past history of methamphetamine use, denies use in the last week at time of admission. Urine tox pending. Sodium on admission is 132. 1Alcohol level is 300s on admission. Last drink was 10 AM, shortly shortly before seizure however she has been attempting to taper her alcohol consumption. Past admissions with EtOH [id number]. She thinks her first seizure was around 10:00 and second seizure was around 1111 30. Denies fever. Endorses mild nausea. Denies cough. 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 Activity: Resume your previous activity Non-emergency contact: Primary Care Provider Call non-emergency contact if: your symptoms worsen Follow-up/Referrals: ASHLEY NOEL [Other] Diet: Regular Addtl Attending Provider Instructions: Please, please do not drink alcohol of any kind consider naltrexone Rx from your provider to help reduce cravings, discuss your medicaitons with your primary care to help to try to reduce medications Pending Studies at Discharge: No Stand-Alone Forms: My [facility], Smoking Cessation Medications and DC Order Prescriptions: New chlordiazepoxide HCl 10 mg Capsule 10 mg PO UD Qty: 10 0RF Rx Instructions: 2 pills in evening and then twice a day 12/14 one pill twice a day 12/15 one pill in morning 12/16 Continued duloxetine 60 mg capsule,delayed release(DR/EC) 60 mg PO QAM propranolol 10 mg tablet 10 mg PO BID Qty: 30 6RF mirtazapine 15 mg tablet 15 mg PO HS gabapentin 300 mg capsule 300 mg PO TID buspirone 10 mg Tablet 10 mg PO TID folic acid 1 mg tablet 1 mg PO DAILY prazosin 1 mg capsule 3 mg PO HS hydroxyzine HCl 25 mg tablet 25 mg PO QID PRN (Reason: Anxiety) [id number]-mins 9 mg iron-400 mcg tablet 1 tab PO DAILY docusate sodium 100 mg capsule 100 mg PO UD PRN (Reason: Constipation) Discontinued lorazepam 1 mg tablet 1 mg PO Q6H PRN (Reason: withdrawal symptoms) Qty: 5 0RF chlordiazepoxide HCl 25 mg capsule 25 mg PO BID PRN (Reason: anxiety) Qty: 5 0RF Rx Instructions: 2 capsules twice a day for one day, then 2 capsule once a day for one day, then stop Discharge Orders: Discharge Order (Routine); Ordered 12/14/23 Ordered By: Justin Bustamante Admission Data Admit Date/Time: 12/11/23 14:55 Attending Provider: Justin Bustamante Admit Provider: Sylvester Simpson Primary Care Provider: ASHLEY NOEL Other Providers: Sylvester Simpson; Lyle Mckeon; Moustapha Randle Other Interventions: Discharge Summary Assessment (RN) Last Done: 12/14/23 14:03 Hospital Stay Data Consultations 12/11/23 14:16 ED Decision to Admit Stat 12/11/23 16:50 Consult Track Mechanic Routine Consult Neurology Routine Diagnostic Imagining Performed 12/11/23 14:25 CT head/brain wo con Stat 12/11/23 16:03 US RUQ [US liver] Stat Pending Results Patient Have Any Pending Studies at Discharge: No Discharge Instructions Given to Patient (Per Discharging Provider) Please, please do not drink alcohol of any kind consider naltrexone Rx from your provider to help reduce cravings, discuss your medicaitons with your primary care to help to try to reduce medications Total Time Total Time Spent Total Time Spent (In Minutes): It required greater than 30 minutes to prepare this patient for discharge. Coding Level of Care Code 06840 INP/OBS DISCH >30 MIN Diagnoses Alcohol withdrawal F10.939 Complication of substance-induced condition: with unspecified complication
[2023-12-16] MEDS ORDERED: GABAPENTIN 600 MG TAB PO SCH
== END 2023-12-14 14:58 | disposition home or self-care (01) | DRG 897 ==
LOC: ED 12:46 → SUATTDRO 14:55 → 1E 14:55 → 2N 12-12 15:31

== ENCOUNTER 2024-01-01 11:06 | Inpatient (IN) ==
[2024-01-01] MEDS: LACTATED RINGER'S 1,000 ML IV ONE ×2 (12:14→15:12)
--- NOTE | 2024-01-01 12:27 | Emergency Department Note ---
Impression & Plan Alcohol use disorder, Fall ED Provider Note Provider: Wilbur Patton MD DATE OF SERVICE: 01/01/2024 CHIEF COMPLAINT: Intoxication, fall, chest pain, abdominal pain, seizure, vomiting HISTORY OF PRESENT ILLNESS: Patient is a 38-year-old female history of PTSD, depression and anxiety, GERD, and significant alcohol use disorder with history of withdrawal seizures in the past presenting here today with friend for further assistance. Patient states since discharged over the last 2 weeks or so she has been drinking beer heavily. Last drink was around 9 AM this morning. States she think she had a seizure possibly 3. She reports that she rolled off the bed to the ground. Vomited and thought that there may have been some coffee-ground emesis. Reports a little bit of lower right-sided abdominal pain as well as a little left chest discomfort. Denies significant head or face pain. Denies other drug use. Patient's friend does express concerns regarding the patient's state and her frequent continued relapses with alcohol. Patient does seem to have some mild hallucinations at times. PAST MEDICAL HISTORY: As noted above MEDICATIONS: Reviewed home medications with the patient. SOCIAL HISTORY: Severe alcohol abuse history PHYSICAL EXAM: GENERAL: alert appears intoxicated and disheveled. Smells of urine. Head: normocephalic and atraumatic, stable midface EYES: No injection, discharge or icterus. PERRL but mildly bilaterally dilated to 5 mm. Extraocular motions intact. NECK: Trachea midline. Supple no significant midline posterior tenderness ENT: Mucous membranes pink and moist. Pharynx without erythema or exudate. LUNGS: Airway patent. No retractions. Breath sounds clear with good air entry bilaterally. HEART: Regular rate and rhythm. No chest wall tenderness ABDOMEN: Soft some slight right mid abdominal tenderness. SKIN: Acyanotic, warm, dry, with a few scattered contusions on the left upper arm and left leg. EXTREMITIES: Without swelling, tenderness or deformity with good range of motion of the extremities without significant focal bony tenderness. No evidence compartment syndrome. NEUROLOGICAL: Mildly slurred speech. No facial droop. Moving all extremities. Mildly hallucinating but not particular tremulous EK bpm sinus tachycardia. No PVC or PAC. No acute ST segment elevation with inferior lateral T wave inversions. CONTINUOUS CARDIAC MONITORING: was ordered and showed a heart rate of 100s-130s bpm in sinus tachycardia GCS 15. Patient's laboratory studies and imaging reviewed. Differential includes Alcohol intoxication, toxicologic, infection, hypoglycemia, electrolyte abnormalities, cardiac sources, intracerebral event, neurologic, trauma, as well as other pathologies. IMPRESSION/MEDICAL DECISION MAKING: Unfortunately no patient from prior encounters. Appears to be highly intoxicated and disheveled. Has some healing contusions to the left upper arm and left leg. Evidently rolled out of bed. Will obtain CT of the head, cervical spine, chest, and abdomen pelvis to exclude any significant traumatic injury given her alcohol use and some trauma. Does report some left-sided chest discomfort and has some T wave inversions on her EKG. Troponin is sent. Question electrolyte abnormality given her significant alcohol use. Does report some 3 short possible episodes of seizure-like activity and has a history of withdrawal seizures but seems highly intoxicated no believe she is in withdrawal at this time. Patient also reports possibly some coffee-ground emesis and given some Protonix here in case of any gastritis or GI bleed component. There is reported little bit of right side abdominal pain knee and imaging here we obtained as well and additional blood work. Blood work without significant leukocytosis or anemia. Normal platelet count. Alcohol severely elevated at 516 likely explain some of her hallucinations and symptoms that are developing. Does not appear in alcohol withdrawal at this time. Troponin normal. Anion gap likely related to her significant alcohol intoxication. Total bilirubin normal. Somewhat low calcium level. CT head and cervical spine per radiology without findings of acute traumatic injury such as intracranial bleed or fractures noted. CT abdomen pelvis radiology without acute intra-abdominal pathology notable. CT of the chest per radiology given some IV hydration with lactated Ringer's here. Given her significant alcohol intoxication does need further monitoring observation for a prolonged time period. Has a little bit of black visual hallucinations by her report appears anxious on reassessment. Will give a little bit of Ativan. She additionally had reports of some possible coffee- ground emesis prior to arrival as well as possibly seizure-like events prior to arrival and feel further monitoring given her significant alcohol abuse is indicated. Hospitalist team was contacted. DIAGNOSIS: Alcohol intoxication, falls DISPOSITION: Hospitalist will evaluate Patient was agreeable with this plan. Past Med/Surg History Problem List (Updated 01/01/24 @ 14:46 by Wilbur Patton M.D.) Fall (Acute) Elevated lactic acid level (Acute) Seizures (Acute) Alcohol withdrawal (Acute) Severe alcohol use disorder Chest pain syndrome PTSD (post-traumatic stress disorder) Suprapubic discomfort (Acute) Mydriasis Methamphetamine intoxication Left lower quadrant abdominal pain Seizure-like activity (Acute) Vomiting (Acute) Elevated liver transaminase level Hypokalemia History of seizure due to alcohol withdrawal (Acute) Elevated liver enzymes (Acute) Vomiting (Acute) Hypomagnesemia (Acute) Alcohol withdrawal (Acute) Hypomagnesemia (Acute) Alcohol use disorder (Acute) Fall (Acute) GERD (gastroesophageal reflux disease) (Acute) Reflux gastritis Anxiety with depression B12 deficiency Depression (Acute) Reflux esophagitis Hepatic steatosis Medical History Seizure Hypophosphatemia Irritable bowel syndrome Hyponatremia Leukocytosis Elevated lactic acid level Alcoholic gastritis High anion gap metabolic acidosis Alcoholic ketoacidosis Alcohol withdrawal Alcoholic intoxication Sciatica Transaminitis Alcoholism Chest pain at rest History of intussusception Thrombocytopenia Tension headache Breast lump on left side at 11 o'clock position Hypomagnesemia Miscarriage PTSD (post-traumatic stress disorder) Pancreatitis Surgical History S/P dilation and curettage H/O foot surgery Previous section Family History Mother Depression Anxiety Brother Depression Anxiety Denies family history of Ovarian cancer Prostate cancer Diabetes Myocardial infarction Breast cancer Colorectal cancer Hypertension Social History Smoking Status: Never smoker Second Hand Exposure: No; Do You Dip or Chew Tobacco: No; Hx Alcohol Use: Yes Alcohol type: hard liquor Hx Substance Use: Yes Last Used Substance: Unknown Substance Use Type Other:: meth + on drug screen, denies any drug use Preferred Language: Burkinan Communication Ability: Effective Visual Impairment: No Limitations Hearing Ability: Normal Merchandise Flow Associate Required: No Beliefs That Will Affect Care: Episcopalian Episcopalian Beliefs: Pt uatsdin marital status: Current Living Situation: Family Current Living Situation Comment: Parents and son 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[employer] How many Children do You have: 1 Feels Safe at Home: Yes Childhood Exposure to Second-Hand Smoke: No Diet: regular Dental Care, Regularly: Yes Physical Activity Frequency: 5-6 Times per Week Seatbelt Use: always Sunscreen Use: Yes Assistive Devices: None Allergies Allergies Allergy/AdvReac Type Severity Reaction Status Date / Time lactose AdvReac Intermediate GI DISTRESS Verified 07/19/23 00:18 Home Meds Home Medications Medication Instructions Recorded Confirmed mirtazapine 15 mg tablet 15 mg PO HS 01/15/22 09/18/23 duloxetine 60 mg capsule,delayed 60 mg PO QAM 04/29/22 09/18/23 release gabapentin 300 mg capsule 300 mg PO TID 05/23/22 09/18/23 folic acid 1 mg tablet 1 mg PO DAILY 10/16/22 09/18/23 prazosin 1 mg capsule 3 mg PO HS 03/14/23 09/18/23 buspirone 10 mg tablet 10 mg PO TID 04/29/23 09/18/23 docusate sodium 100 mg capsule 100 mg PO UD PRN Constipation 09/18/23 09/18/23 hydroxyzine HCl 25 mg tablet 25 mg PO QID PRN Anxiety 09/18/23 09/18/23 multivitamin-iron 9 mg-folic acid 1 tab PO DAILY 09/18/23 09/18/23 400 mcg-calcium and minerals tablet Previous Rx's Medication Instructions Recorded propranolol 10 mg tablet 10 mg PO BID #30 tabs 11/11/22 chlordiazepoxide HCl 10 mg capsule 10 mg PO UD #10 caps 12/14/23 Results & Data (ED) Vital Signs Vital Signs - 24 hr 01/01/24 11:09 01/01/24 12:11 01/01/24 12:11 Temperature 36.8 C Temperature Source Temporal Artery Scan Pulse Rate 139 H Pulse Rhythm Regular Pulse Strength Normal Respiratory Rate 20 Respiratory Effort / Characteristics Non-Labored Spontaneous Respiratory Depth Normal Blood Pressure 138/88 Blood Pressure Mean 104 Blood Pressure Position Sitting Pulse Oximetry 99 100 100 Oxygen Delivery Method Room Air Room Air Room Air Sepsis Recent Fever Within 48 Hours No Sepsis New/Unexplained Change in Mental Status N/A Sepsis Action Taken by Nursing No Action Required 01/01/24 12:30 01/01/24 12:42 01/01/24 13:00 Temperature Temperature Source Pulse Rate 107 H 109 H Pulse Rhythm Pulse Strength Respiratory Rate 19 15 Respiratory Effort / Characteristics Respiratory Depth Blood Pressure 131/93 Blood Pressure Mean 106 Blood Pressure Position Pulse Oximetry Oxygen Delivery Method Sepsis Recent Fever Within 48 Hours Sepsis New/Unexplained Change in Mental Status Sepsis Action Taken by Nursing 01/01/24 13:00 01/01/24 13:07 01/01/24 13:12 Temperature Temperature Source Pulse Rate 100 H 115 H 122 H Pulse Rhythm Pulse Strength Respiratory Rate 15 14 Respiratory Effort / Characteristics Respiratory Depth Blood Pressure Blood Pressure Mean Blood Pressure Position Pulse Oximetry 100 Oxygen Delivery Method Sepsis Recent Fever Within 48 Hours Sepsis New/Unexplained Change in Mental Status Sepsis Action Taken by Nursing 01/01/24 13:39 01/01/24 13:42 01/01/24 13:51 Temperature Temperature Source Pulse Rate 109 H 107 H 120 H Pulse Rhythm Pulse Strength Respiratory Rate 19 18 15 Respiratory Effort / Characteristics Respiratory Depth Blood Pressure Blood Pressure Mean Blood Pressure Position Pulse Oximetry 100 100 100 Oxygen Delivery Method Sepsis Recent Fever Within 48 Hours Sepsis New/Unexplained Change in Mental Status Sepsis Action Taken by Nursing 01/01/24 14:01 01/01/24 14:01 01/01/24 14:03 Temperature Temperature Source Pulse Rate 114 H Pulse Rhythm Pulse Strength Respiratory Rate 19 Respiratory Effort / Characteristics Respiratory Depth Blood Pressure 126/81 126/81 Blood Pressure Mean 100 100 Blood Pressure Position Pulse Oximetry 100 Oxygen Delivery Method Sepsis Recent Fever Within 48 Hours Sepsis New/Unexplained Change in Mental Status Sepsis Action Taken by Nursing 01/01/24 14:15 01/01/24 14:18 01/01/24 14:30 Temperature Temperature Source Pulse Rate 127 H 117 H Pulse Rhythm Pulse Strength Respiratory Rate 21 17 Respiratory Effort / Characteristics Respiratory Depth Blood Pressure 130/84 Blood Pressure Mean 97 Blood Pressure Position Pulse Oximetry 100 100 Oxygen Delivery Method Sepsis Recent Fever Within 48 Hours Sepsis New/Unexplained Change in Mental Status Sepsis Action Taken by Nursing 01/01/24 14:30 Temperature Temperature Source Pulse Rate Pulse Rhythm Pulse Strength Respiratory Rate Respiratory Effort / Characteristics Respiratory Depth Blood Pressure 130/84 Blood Pressure Mean 97 Blood Pressure Position Pulse Oximetry Oxygen Delivery Method Sepsis Recent Fever Within 48 Hours Sepsis New/Unexplained Change in Mental Status Sepsis Action Taken by Nursing Laboratory Data 01/01/24 12:38 01/01/24 12:38 Lab Results 01/01/24 01/01/24 01/01/24 Range/Units 12:38 12:39 14:17 WBC 9.71 (4.8-10.8) K/ul RBC 4.65 (4.20-5.40) M/uL Hgb 14.7 (12.0-16.0) g/dl POC Hgb 18.4 H (12.0-16.0) g/dl Hct 41.3 (37.0-47.0) % POC Hct 54 H (37-47) % MCV 88.8 (80.0-100.0) fL MCH 31.6 (25.0-34.0) pg MCHC 35.6 (32.0-36.0) g/dL RDW Std Deviation 51.2 H (36.4-46.3) fL RDW Coeff of Dallin 15.9 H (11.5-14.5) % Plt Count 204 (130-400) K/uL MPV 10.4 (9.4-12.4) fL Immature Gran % (Auto) 0.3 % Neut % (Auto) 77.9 % Lymph % (Auto) 16.7 % Tift % (Auto) 4.0 % Eos % (Auto) 0.0 % Baso % (Auto) 1.1 % Neut # (Auto) 7.56 H (1.40-6.50) K/uL Lymph # (Auto) 1.62 (1.20-3.40) K/uL Tift # (Auto) 0.39 (0.11-0.59) K/uL Eos # (Auto) 0.00 (0.00-0.50) K/uL Baso # (Auto) 0.11 (0.00-0.20) K/uL Immature Gran # (Auto) 0.03 (0.01-0.20) K/uL POC Sodium 135 (135-144) mmol/L Sodium 136 (136-145) mmol/L POC Potassium 5.8 H (3.3-5.0) mmol/L Potassium TNP POC Chloride 99 L (101-112) mmol/L Chloride 93 L (98-107) mmol/L Carbon Dioxide 19 L (21-32) mmol/L POC Total CO2 17 L (24-31) mmol/L Anion Gap 24 H (3-11) POC Anion Gap 25.0 (16-25) mmol/L POC BUN 12 (7-18) mg/dl BUN 11 (6-23) mg/dl Creatinine 0.68 (0.6-1.2) mg/dl POC Creatinine 1.0 (0.6-1.3) mg/dl Est Cr Clr Drug Dosing Not Reportable eGFR 113.54 BUN/Creatinine Ratio 16.2 (10-20) Glucose 72 (70-99(Fasting)) mg/dl POC Glucose (other) 73 (70-99) mg/dl Calcium 8.0 L (8.6-10.3) mg/dl POC Ioniz Calcium Jeffery 0.74 L* (1.12-1.32) mmol/l Magnesium 1.9 (1.7-2.4) mg/dl Total Bilirubin 0.4 (0.2-1.0) mg/dl Direct Bilirubin TNP AST TNP ALT 70 H (7-52) U/L Alkaline Phosphatase 62 (34-104) U/L Troponin I High Sens 5.8 (0-14) pg/ml Total Protein 7.7 (6.0-8.3) gm/dl Albumin 4.7 (3.4-5.0) gm/dl Lipase 44 (11-82) U/L HCG, Qual Cancelled Negative Ethyl Alcohol mg/dL 516.9 H (<10.0) mg/dl Administered Medications Discontinued Medications Lactated Ringer's (Lr) 1,000 mls @ 999 mls/hr IV .Q1H1M ONE Stop: 01/01/24 12:55 Last Infusion: 01/01/24 14:34 Dose: Infused Documented By: Admin: 01/01/24 12:14 Dose: 999 mls/hr Documented By: ML Pantoprazole Sodium 80 mg/ (Dextrose) 120 mls @ 480 mls/hr IV ONE STA Stop: 01/01/24 12:35 Last Infusion: 01/01/24 13:37 Dose: Infused Documented By: Admin: 01/01/24 13:08 Dose: 480 mls/hr Documented By: ML Calcium Gluconate () 1,000 mg in 60 mls @ 240 mls/hr IV NOW STA Stop: 01/01/24 14:28 Last Admin: 01/01/24 14:33 Dose: 240 mls/hr Documented By: JONNY Ioversol (Optiray 320 100ml) 94 ml IV ONCE ONE Stop: 01/01/24 13:17 Last Admin: 01/01/24 13:17 Dose: 94 ml Documented By: KIERA Lorazepam (Lorazepam 1 Mg/1 Ml Syr Ed Inj Use) 1 mg IV ONE STA Stop: 01/01/24 14:00 Last Admin: 01/01/24 14:31 Dose: 1 mg Documented By: ML Imaging Data Radiologist's Impression: Abdomen/Pelvis CT 01/01/24 11:[address] WITH IV CONTRAST CT DOSE: 3546.52 mGy.cm HISTORY: Acute generalized abdominal pain status post fall fall, etoh, R abd pain TECHNIQUE: Multiaxial CT images of the abdomen and pelvis were performed following the IV administration of 94 cc of Optiray, A dose lowering technique was utilized adhering to the principles of ALARA. COMPARISON STUDY: Chest CT of same day, CT abdomen and pelvis 09/18/2023 FINDINGS: The lung bases are clear. The spleen, gallbladder, pancreas, kidneys, and adrenal glands are within normal limits. Hepatic steatosis. Patency of the hepatic and portal veins. No bowel wall thickening or obstruction. Normal appendix. The pelvic organs are unremarkable. Chronic L5 pars defects. There is moderate L5-S1 intervertebral disc space narrowing with 4 mm anterolisthesis. No suspicious lytic or blastic osseous lesions. IMPRESSION: 1. No acute posttraumatic intra-abdominal or intrapelvic abnormality. 2. Hepatic steatosis. 3. Normal appendix. ACT 112: Negative or not required by law. The above report was generated using voice recognition software. It may contain grammatical, syntax or spelling errors. Electronically signed by: Boston Fernando M.D. 01/01/2024 1:[address] 01/01/24 11:55 CT OF THE CERVICAL SPINE WITHOUT CONTRAST CLINICAL HISTORY: fall, etoh COMPARISON STUDY: Cervical spine CT November 24, 2022. TECHNIQUE: Helical axial images of the cervical spine were obtained without IV contrast. Sagittal and coronal reconstructions were viewed. Automated exposure control was utilized for the study. A dose lowering technique was utilized adhering to the principles of ALARA. FINDINGS: There is straightening of the cervical lordosis. Vertebral body heights are maintained. No acute cervical spine fracture or subluxation is present. There is no prevertebral edema. Facet joints are intact. IMPRESSION: No acute cervical spine fracture or subluxation. ACT 112: Negative or not required by law. Electronically signed by: Hung Stubbs M.D. 01/01/2024 1:[address] 01/01/24 11:55 CT head/brain wo con CLINICAL HISTORY: 38 years-old Female with fall, etoh. Acute head trauma status post fall TECHNIQUE: Multiple axial CT images of the head were obtained without contrast. A dose lowering technique was utilized adhering to the principles of ALARA. COMPARISON: 12/11/2023 FINDINGS: No acute intracranial hemorrhage, midline shift, intracranial mass, hydrocephalus, territorial ischemia or abnormal extra-axial collection. Minimal bifrontal involutional changes are again noted. The calvarium is intact. The paranasal sinuses, mastoid air cells, and middle ear cavities are clear. IMPRESSION: No acute intracranial abnormality or calvarial fracture. ACT 112: Negative or not required by law. The above report was generated using voice recognition software. It may contain grammatical, syntax or spelling errors. Electronically signed by: Boston Fernando M.D. 01/01/2024 1:49 PM Discharge Plan Visit Data Chief Complaint: Alcohol Intoxication Stated Complaint: ALCOHOL INTOXICATION ED Provider: Wilbur Patton Discharge Problem: Alcohol use disorder, Fall Patient Disposition: Being Evaluated by Hospitalist Forms Stand Alone Forms: My [facility] [address] Prescriptions Prescriptions: No Action duloxetine 60 mg capsule,delayed release(DR/EC) 60 mg PO QAM propranolol 10 mg tablet 10 mg PO BID Qty: 30 6RF mirtazapine 15 mg tablet 15 mg PO HS gabapentin 300 mg capsule 300 mg PO TID buspirone 10 mg Tablet 10 mg PO TID folic acid 1 mg tablet 1 mg PO DAILY prazosin 1 mg capsule 3 mg PO HS chlordiazepoxide HCl 10 mg Capsule 10 mg PO UD Qty: 10 0RF Rx Instructions: 2 pills in evening and then twice a day 12/14 one pill twice a day 12/15 one pill in morning 12/16 hydroxyzine HCl 25 mg tablet 25 mg PO QID PRN (Reason: Anxiety) [id number] 9 mg iron-400 mcg tablet 1 tab PO DAILY docusate sodium 100 mg capsule 100 mg PO UD PRN (Reason: Constipation) Referrals Referrals: ASHLEY NOEL [Other]
[2024-01-01 12:52] LABS: iSTAT Hemoglobin 18.4 g/dl (12.0-16.0); iSTAT Ionized Calcium 0.74 mmol/l (1.12-1.32); iSTAT Potassium 5.8 mmol/L (3.3-5.0)
[2024-01-01 12:57] LABS: Basophils # (auto) 0.11 K/uL (0.00-0.20); Basophils % (auto) 1.1 %; Hematocrit (blood only) 41.3 % (37.0-47.0); Hemoglobin 14.7 g/dl (12.0-16.0); Immature Granulocytes # (auto) 0.03 K/uL (0.01-0.20); Immature Granulocytes % (auto) 0.3 %; Lymphocytes # (auto) 1.62 K/uL (1.20-3.40); Lymphocytes % (auto) 16.7 %; Mean Corpuscular Hemoglobin 31.6 pg (25.0-34.0); Mean Corpuscular Hgb Conc 35.6 g/dL (32.0-36.0); Mean Corpuscular Volume 88.8 fL (80.0-100.0); Mean Platelet Volume 10.4 fL (9.4-12.4); Monocytes # (auto) 0.39 K/uL (0.11-0.59); Neutrophils # (auto) 7.56 K/uL (1.40-6.50); Neutrophils % (auto) 77.9 %; Platelet Count 204 K/uL (130-400); RDW Coefficient of Variation 15.9 % (11.5-14.5); RDW Standard Deviation 51.2 fL (36.4-46.3); Red Blood Count 4.65 M/uL (4.20-5.40); White Blood Count 9.71 K/ul (4.8-10.8)
[2024-01-01] MEDS: PANTOprazole 80 MG in DEXTROSE 5% 100 ML IV STA (13:08)
[2024-01-01 13:16] LABS: Alanine Aminotransferase 70 U/L (7-52); Albumin Level 4.7 gm/dl (3.4-5.0); Alkaline Phosphatase 62 U/L (34-104); Anion Gap 24 (3-11); BUN Creatinine Ratio 16.2 (10-20); Bilirubin,Total 0.4 mg/dl (0.2-1.0); Blood Urea Nitrogen 11 mg/dl (6-23); Carbon Dioxide 19 mmol/L (21-32); Chloride 93 mmol/L (98-107); Glucose 72 mg/dl (70-99(Fasting)); Lipase 44 U/L (11-82); Magnesium 1.9 mg/dl (1.7-2.4); Sodium 136 mmol/L (136-145); Total Protein 7.7 gm/dl (6.0-8.3)
[2024-01-01] MEDS: OPTIRAY 320 100ml IV ONE (13:17)
[2024-01-01 13:23] LABS: Troponin I High Sensitivity 5.8 pg/ml (0-14)
--- NOTE | 2024-01-01 13:48 | CT Scan Report ---
CT OF THE CERVICAL SPINE WITHOUT CONTRAST CLINICAL HISTORY: fall, etoh COMPARISON STUDY: Cervical spine CT November 24, 2022. TECHNIQUE: Helical axial images of the cervical spine were obtained without IV contrast. Sagittal a nd coronal reconstructions were viewed. Automated exposure control was utilized for the study. A do se lowering technique was utilized adhering to the principles of ALARA. FINDINGS: There is straightening of the cervical lordosis. Vertebral body heights are maintained. No acute cervical spine fracture or subluxation is present. There is no prevertebral edema. Facet joints are intact. IMPRESSION: No acute cervical spine fracture or subluxation. ACT 112: Negative or not required by law. Electronically signed by: uHng Stubbs M.D. 01/01/2024 1:47 PM
--- NOTE | 2024-01-01 13:48 | CT Scan Report ---
ABDOMEN AND PELVIS CT WITH IV CONTRAST CT DOSE: 3546.52 mGy.cm HISTORY: Acute generalized abdominal pain status post fall fall, etoh, R abd pain TECHNIQUE: Multiaxial CT images of the abdomen and pelvis were performed following the IV administrat ion of 94 cc of Optiray, A dose lowering technique was utilized adhering to the principles of ALARA. COMPARISON STUDY: Chest CT of same day, CT abdomen and pelvis 09/18/2023 FINDINGS: The lung bases are clear. The spleen, gallbladder, pancreas, kidneys, and adrenal glands ar e within normal limits. Hepatic steatosis. Patency of the hepatic and portal veins. No bowel wall thi ckening or obstruction. Normal appendix. The pelvic organs are unremarkable. Chronic L5 pars defects. There is moderate L5-S1 intervertebral disc space narrowing with 4 mm anterolisthesis. No suspicious lytic or blastic osseous lesions. IMPRESSION: 1. No acute posttraumatic intra-abdominal or intrapelvic abnormality. 2. Hepatic steatosis. 3. Normal appendix. ACT 112: Negative or not required by law. The above report was generated using voice recognition software. It may contain grammatical, syntax o r spelling errors. Electronically signed by: Boston Fernando M.D. 01/01/2024 1:47 PM
--- NOTE | 2024-01-01 13:51 | CT Scan Report ---
CT head/brain wo con CLINICAL HISTORY: 38 years-old Female with fall, etoh. Acute head trauma status post fall TECHNIQUE: Multiple axial CT images of the head were obtained without contrast. A dose lowering tech nique was utilized adhering to the principles of ALARA. COMPARISON: 12/11/2023 FINDINGS: No acute intracranial hemorrhage, midline shift, intracranial mass, hydrocephalus, territorial ischem ia or abnormal extra-axial collection. Minimal bifrontal involutional changes are again noted. The calvarium is intact. The paranasal sinuses, mastoid air cells, and middle ear cavities are clear . IMPRESSION: No acute intracranial abnormality or calvarial fracture. ACT 112: Negative or not required by law. The above report was generated using voice recognition software. It may contain grammatical, syntax o r spelling errors. Electronically signed by: Boston Fernando M.D. 01/01/2024 1:49 PM
[2024-01-01] MEDS: LORazepam 1 MG/1 ML SYR ED Inj Use IV STA (14:31)
[2024-01-01] MEDS: CALCIUM GLUCONATE 1,000 MG/60 ML BAG IV STA (14:33)
[2024-01-01 14:45] LABS: Pregnancy Test, Serum Negative (Negative)
[2024-01-01 14:53] LABS: Bilirubin Direct 0.1 mg/dl (0-0.2); Potassium 4.1 mmol/L (3.5-5.1)
--- NOTE | 2024-01-01 15:00 | CT Scan Report ---
CT SCAN OF THE CHEST WITH IV CONTRAST CLINICAL HISTORY: Atypical chest pain. Fall. Intoxication. COMPARISON STUDY: Chest CT dated 03/13/2023. Chest x-ray dated 12/11/2023. TECHNIQUE: Following the IV administration of 94 cc of Optiray 320, CT scan of the thorax was perform ed from the thoracic inlet to the upper abdomen. Images are reviewed in the axial, sagittal, and hilton nal planes. IV contrast was administered without complication. A dose lowering technique was utilize d adhering to the principles of ALARA. The examination is degraded by streak artifact from the arms w hich could not be elevated above the chest. FINDINGS: Thyroid: Imaged portions of the thyroid gland are normal in size and attenuation. Thoracic aorta: The thoracic aorta is normal in caliber and demonstrates 4-vessel variant arch anatom y. No dissection is seen. Pulmonary vasculature: The pulmonary trunk is normal in caliber. There are no filling defects identif ied in the central pulmonary vessels to indicate pulmonary embolus. Note that this examination was no t protocoled for evaluation of the pulmonary arteries. Heart: The heart is normal in size and without pericardial effusion. Lungs and pleural spaces: There is no airspace consolidation, pleural effusion, or pneumothorax. The trachea and central airways are clear. Mediastinum: There is no mediastinal hematoma or lymphadenopathy. July: Clear. Axillae: There is no axillary lymphadenopathy. Upper abdomen: There are severe hepatic steatosis. Partially visualized upper abdominal viscera is ot herwise grossly unremarkable. Skeletal structures: No lytic or blastic bony lesions are seen. IMPRESSION: 1. There is no acute posttraumatic intrathoracic abnormality. 2. There is no airspace consolidation, pleural effusion, or pneumothorax. 3. Severe hepatic steatosis. 4. Additional findings as above. ACT 112: Negative or not required by law. Electronically signed by: Todd Espinosa M.D. 01/01/2024 2:58 PM
--- NOTE | 2024-01-01 15:01 | History & Physical Report ---
Date of Service January 01, 2024 Assessment & Plan (1) Alcohol withdrawal: Plan: Despite significantly positive alcohol level on arrival to ER she has started to exhibit some mild alcohol withdrawal symptoms. Suspect hallucinations however from intoxication rathert than withdrawal but this would favor using phenobarbital over benzodiazepines that could contribute towards hallucinations Start 8mg/kg IBL load (calculates to 416mg) therefore will start 390mg IV, addit ional 65mg q15m for maximum of 2 further doses over next 2 hours if RASS > 0 following this Phenobarbital 65mg IV q6h PRN for RASS > 0 following this Low suspicion she had seizures prior to admission but will monitor closely in PCU Urine toxicology to assess for other illicit drug use given prior history of methamphetamine positive UDS Thiamine and folic acid supplementation (2) Coffee ground emesis: Plan: Per patient recollection, no further episodes in ER Pantoprazole 80mg IV given in ER, continue 40mg IV BID (3) Alcoholic intoxication: Plan: Positive alcohol level on admission to ER Plan VTE Prophylaxis - Low risk Diet - NPO Disposition - admit to PCU Admission and Anticipated Discharge Date Admission Date: January 01, 2024 History of Present Illness Chief Complaint: Alcohol withdrawal Primary Care Provider: ASHLEY NOEL Radha Ybarra is a 38 year old female well known to the service for alcohol use disorder with prior alcohol withdrawal including seizures. Since her last hospitalization she has continued to drink a 5th of vodka / day. Last drink was 9am this morning and when seen at 3pm she is already starting to get agitated and shaking. She also notes having hallucinations and seeing bats on the wall. She thinks she possible had a seizure and rolled off the bed to the ground. Some concern for vomiting coffee ground emesis in addition. Right sided abdominal pain ongoing from prior admissions. She denies any other illicit drug use and reports to take all of her other medications. Allergies Allergy/AdvReac Type Severity Reaction Status Date / Time lactose AdvReac Intermediate GI DISTRESS Verified 01/01/24 15:52 Home Medications Medication Instructions Recorded Confirmed Type mirtazapine 15 mg tablet 15 mg PO HS 01/15/22 01/01/24 History duloxetine 60 mg capsule,delayed 60 mg PO QAM 04/29/22 01/01/24 History release gabapentin 300 mg capsule 300 mg PO TID 05/23/22 01/01/24 History folic acid 1 mg tablet 1 mg PO DAILY 10/16/22 01/01/24 History propranolol 10 mg tablet 10 mg PO BID #30 tabs 11/11/22 01/01/24 Rx prazosin 1 mg capsule 3 mg PO HS 03/14/23 01/01/24 History buspirone 10 mg tablet 10 mg PO TID 04/29/23 01/01/24 History hydroxyzine HCl 25 mg tablet 25 mg PO QID PRN Anxiety 09/18/23 01/01/24 History linaclotide 145 mcg capsule 145 mcg PO QAM 01/01/24 01/01/24 History (Linzess) multivitamin 1 tab PO DAILY 01/01/24 01/01/24 History Past Med/Surg History Problem List (Updated 01/02/24 @ 00:20 by Patrick Polo MD) Coffee ground emesis Alcoholic intoxication Fall (Acute) Elevated lactic acid level (Acute) Seizures (Acute) Alcohol withdrawal (Acute) Severe alcohol use disorder Chest pain syndrome PTSD (post-traumatic stress disorder) Suprapubic discomfort (Acute) Mydriasis Methamphetamine intoxication Left lower quadrant abdominal pain Seizure-like activity (Acute) Vomiting (Acute) Elevated liver transaminase level Hypokalemia History of seizure due to alcohol withdrawal (Acute) Elevated liver enzymes (Acute) Vomiting (Acute) Hypomagnesemia (Acute) Alcohol withdrawal (Acute) Hypomagnesemia (Acute) Alcohol use disorder (Acute) Fall (Acute) GERD (gastroesophageal reflux disease) (Acute) Reflux gastritis Anxiety with depression B12 deficiency Depression (Acute) Reflux esophagitis Hepatic steatosis Medical History RUQ pain Abnormal EKG Acute hyponatremia Alcohol withdrawal Alcohol abuse Seizure Hypophosphatemia Irritable bowel syndrome Hyponatremia Leukocytosis Elevated lactic acid level Alcoholic gastritis High anion gap metabolic acidosis Alcoholic ketoacidosis Alcohol withdrawal Sciatica Transaminitis Alcoholism Chest pain at rest History of intussusception Thrombocytopenia Tension headache Breast lump on left side at 11 o'clock position Hypomagnesemia Miscarriage Pancreatitis Surgical History S/P dilation and curettage H/O foot surgery Previous section Family History Mother Depression Anxiety Brother Depression Anxiety Denies family history of Ovarian cancer Prostate cancer Diabetes Myocardial infarction Breast cancer Colorectal cancer Hypertension Social History Smoking Status: Never smoker Second Hand Exposure: No; Do You Dip or Chew Tobacco: No; Hx Alcohol Use: Yes Alcohol type: hard liquor Hx Substance Use: No Preferred Language: Bahraini Communication Ability: Effective Visual Impairment: No Limitations Hearing Ability: Normal Energy Efficiency Engineer Required: No Beliefs That Will Affect Care: Jain Jain Beliefs: Mandaen marital status: Current Living Situation: Parent and Other Current Living Situation Comment: Parents and son 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[employer] How many Children do You have: 1 Feels Safe at Home: Yes Safety Concerns: Feels Safe At This Time Childhood Exposure to Second-Hand Smoke: No Diet: regular Dental Care, Regularly: Yes Physical Activity Frequency: 5-6 Times per Week Seatbelt Use: always Sunscreen Use: Yes Assistive Devices: None Review of Systems Review of Systems: All systems reviewed & are unremarkable except as noted in HPI & below Physical Exam Constitutional: WD/WN, vitals as above Eyes: PERRL, conjunctivae normal, anicteric sclerae ENMT: Mouth: + dry oral mucous membranes Respiratory: normal respiratory effort, lungs clear to auscultation Cardiovascular: Rate/Rhythm: regular rhythm and + tachycardic Heart Sounds: no murmur Extremities: normal capillary refill; no calf tenderness and no pedal edema Gastrointestinal (Abdomen): Inspection/Auscultation: abdomen normal to inspection; abdomen not distended Percussion/Palpation: + abdomen tender (Right upper quadrant); no guarding and abdomen not rigid Musculoskeletal: no cyanosis or clubbing, extremities motor strength 5/5 Skin: no rashes, warm and dry Neurologic: moves all extremities and awake; not confused Speech / Cognition: normal speech Motor/Sensory: + tremor (Bilateral) Psychiatric: Orientation: alert and oriented x 3 Eye Contact: good eye contact Motor Behavior: + psychomotor agitation Results & Data Results & Data Vital Signs (Past 12 Hours) Vital Signs Temp Pulse Resp BP Pulse Ox O2 Del Method 01/01/24 14:30 130/84 01/01/24 14:30 130/84 01/01/24 14:18 117 H 17 100 10/03/24 14:15 127 H 21 100 01/01/24 14:03 114 H 19 100 01/01/24 14:01 126/81 01/01/24 14:01 126/81 01/01/24 13:51 120 H 15 100 01/01/24 13:42 107 H 18 100 01/01/24 13:39 109 H 19 100 01/01/24 13:12 122 H 14 100 01/01/24 13:07 115 H 01/01/24 13:00 100 H 15 01/01/24 13:00 131/93 01/01/24 12:42 109 H 15 01/01/24 12:30 107 H 19 01/01/24 12:11 100 Room Air 01/01/24 12:11 100 Room Air 01/01/24 11:09 36.8 C 139 H 20 138/88 99 Room Air Laboratory Results Abnormal lab results 01/01/24 01/01/24 01/01/24 Range/Units 12:38 12:39 14:17 POC Hgb 18.4 H (12.0-16.0) g/dl POC Hct 54 H (37-47) % RDW Std Deviation 51.2 H (36.4-46.3) fL RDW Coeff of Dallin 15.9 H (11.5-14.5) % Neut # (Auto) 7.56 H (1.40-6.50) K/uL POC Potassium 5.8 H (3.3-5.0) mmol/L POC Chloride 99 L (101-112) mmol/L Chloride 93 L (98-107) mmol/L Carbon Dioxide 19 L (21-32) mmol/L POC Total CO2 17 L (24-31) mmol/L Anion Gap 24 H (3-11) Calcium 8.0 L (8.6-10.3) mg/dl POC Ioniz Calcium Jeffery 0.74 L* (1.12-1.32) mmol/l AST 140 H (13-39) U/L ALT 70 H (7-52) U/L Ur Specific [place] (1.000-1.030) Urine Protein (Negative) Urine Ketones (Negative) Urine Blood (Negative) Urine RBC (Auto) (0-2) /hpf U Epithel Cells (Auto) (0-2) /hpf Ethyl Alcohol mg/dL 516.9 H (<10.0) mg/dl 01/01/24 Range/Units Unknown POC Hgb (12.0-16.0) g/dl POC Hct (37-47) % RDW Std Deviation (36.4-46.3) fL RDW Coeff of Dallin (11.5-14.5) % Neut # (Auto) (1.40-6.50) K/uL POC Potassium (3.3-5.0) mmol/L POC Chloride (101-112) mmol/L Chloride (98-107) mmol/L Carbon Dioxide (21-32) mmol/L POC Total CO2 (24-31) mmol/L Anion Gap (3-11) Calcium (8.6-10.3) mg/dl POC Ioniz Calcium Jeffery (1.12-1.32) mmol/l AST (13-39) U/L ALT (7-52) U/L Ur Specific [place] > 1.045 H (1.000-1.030) Urine Protein 2+ H (Negative) Urine Ketones 3+ H (Negative) Urine Blood 1+ H (Negative) Urine RBC (Auto) 3-5 H (0-2) /hpf U Epithel Cells (Auto) 3-5 H (0-2) /hpf Ethyl Alcohol mg/dL (<10.0) mg/dl Diagnostic Findings CT head/brain wo con CLINICAL HISTORY: 38 years-old Female with fall, etoh. Acute head trauma status post fall TECHNIQUE: Multiple axial CT images of the head were obtained without contrast. A dose lowering technique was utilized adhering to the principles of ALARA. COMPARISON: 12/11/2023 FINDINGS: No acute intracranial hemorrhage, midline shift, intracranial mass, hydrocephalus, territorial ischemia or abnormal extra-axial collection. Minimal bifrontal involutional changes are again noted. The calvarium is intact. The paranasal sinuses, mastoid air cells, and middle ear cavities are clear. IMPRESSION: No acute intracranial abnormality or calvarial fracture. CT OF THE CERVICAL SPINE WITHOUT CONTRAST CLINICAL HISTORY: fall, etoh COMPARISON STUDY: Cervical spine CT November 24, 2022. TECHNIQUE: Helical axial images of the cervical spine were obtained without IV contrast. Sagittal and coronal reconstructions were viewed. Automated exposure control was utilized for the study. A dose lowering technique was utilized adhering to the principles of ALARA. FINDINGS: There is straightening of the cervical lordosis. Vertebral body heights are maintained. No acute cervical spine fracture or subluxation is pr esent. There is no prevertebral edema. Facet joints are intact. IMPRESSION: No acute cervical spine fracture or subluxation. CT SCAN OF THE CHEST WITH IV CONTRAST CLINICAL HISTORY: Atypical chest pain. Fall. Intoxication. COMPARISON STUDY: Chest CT dated 03/13/2023. Chest x-ray dated 12/11/2023. TECHNIQUE: Following the IV administration of 94 cc of Optiray 320, CT scan of the thorax was performed from the thoracic inlet to the upper abdomen. Images are reviewed in the axial, sagittal, and coronal planes. IV contrast was administered without complication. A dose lowering technique was utilized adhering to the principles of ALARA. The examination is degraded by streak artifact from the arms which could not be elevated above the chest. FINDINGS: Thyroid: Imaged portions of the thyroid gland are normal in size and attenuation. Thoracic aorta: The thoracic aorta is normal in caliber and demonstrates 4- vessel variant arch anatomy. No dissection is seen. Pulmonary vasculature: The pulmonary trunk is normal in caliber. There are no filling defects identified in the central pulmonary vessels to indicate pulmonary embolus. Note that this examination was not protocoled for evaluation of the pulmonary arteries. Heart: The heart is normal in size and without pericardial effusion. Lungs and pleural spaces: There is no airspace consolidation, pleural effusion, or pneumothorax. The trachea and central airways are clear. Mediastinum: There is no mediastinal hematoma or lymphadenopathy. July: Clear. Axillae: There is no axillary lymphadenopathy. Upper abdomen: There are severe hepatic steatosis. Partially visualized upper abdominal viscera is otherwise grossly unremarkable. Skeletal structures: No lytic or blastic bony lesions are seen. IMPRESSION: 1. There is no acute posttraumatic intrathoracic abnormality. 2. There is no airspace consolidation, pleural effusion, or pneumothorax. 3. Severe hepatic steatosis. 4. Additional findings as above. ABDOMEN AND PELVIS CT WITH IV CONTRAST CT DOSE: 3546.52 mGy.cm HISTORY: Acute generalized abdominal pain status post fall fall, etoh, R abd pain TECHNIQUE: Multiaxial CT images of the abdomen and pelvis were performed following the IV administration of 94 cc of Optiray, A dose lowering technique was utilized adhering to the principles of ALARA. COMPARISON STUDY: Chest CT of same day, CT abdomen and pelvis 09/18/2023 FINDINGS: The lung bases are clear. The spleen, gallbladder, pancreas, kidneys, and adrenal glands are within normal limits. Hepatic steatosis. Patency of the hepatic and portal veins. No bowel wall thickening or obstruction. Normal appendix. The pelvic organs are unremarkable. Chronic L5 pars defects. There is moderate L5-S1 intervertebral disc space narrowing with 4 mm anterolisthesis. No suspicious lytic or blastic osseous lesions. IMPRESSION: 1. No acute posttraumatic intra-abdominal or intrapelvic abnormality. 2. Hepatic steatosis. 3. Normal appendix. Medications Administered ER medications given: Lactated Ringer's 1 L bolus Pantoprazole 80 mg IV Lorazepam 1 mg IV ECG Rate (beats per minute): 134 Rhythm: normal sinus Findings: + nonspecific-ST abn (Widespread) and + T-wave inversion (Inferolateral) Comparison ECG Date: from (December 12, 2023) Change: the following changes noted (T wave inversions now evident in inferior lateral leads) Code Status & VTE Plan Code Status Full VTE Prophylaxis Plan VTE Prophylaxis will be ordered: No PG Care Time/CCT Total # of Minutes Spent Total Time Spent with Patient: Total time spent is greater than 50% in coordination of care (as documented) at patient's floor/unit and/or counseling patient: Coding Level of Care Code 45531 INT INP/OBS CARE 375MIN Diagnoses Alcohol withdrawal F10.939 Complication of substance-induced condition: with unspecified complication Coffee ground emesis K92.0 Alcoholic intoxication F10.929 (1) Alcohol withdrawal Complication of substance-induced condition: with unspecified complication Qualified Code(s): F10.939 - Alcohol use, unspecified with withdrawal, unspecified
[2024-01-01] MEDS ORDERED: PHENobarbital sodium 65 MG/ML VIAL IV STA (15:08)
[2024-01-01] MEDS: SODIUM CHLORIDE 0.9% IV STA (15:52)
[2024-01-01] MEDS: PHENOBARBITAL SODIUM IV STA (15:52)
--- NOTE | 2024-01-01 16:35 | Electrocardiogram Report ---
Test Reason : Blood Pressure : */* mmHG Vent. Rate : 134 BPM Atrial Rate : 134 BPM P-R Int : 96 ms QRS Dur : 76 ms QT Int : 384 ms P-R-T Axes : * 73 15 degrees QTcB Int : 573 ms Sinus tachycardia Abnormal ECG When compared with ECG of 12-Dec-2023 10:03, MI interval has decreased Vent. rate has increased by 56 bpm T wave inversion now evident in Inferior leads T wave inversion now evident in Lateral leads Confirmed by Mike Brown ([id number] on 01/01/2024 4:35:32 PM Referred By: REFERRED SELF Confirmed By: Mike Brown
--- NOTE | 2024-01-01 16:41 | Electrocardiogram Report ---
Test Reason : Blood Pressure : */* mmHG Vent. Rate : 126 BPM Atrial Rate : 126 BPM P-R Int : 124 ms QRS Dur : 74 ms QT Int : 350 ms P-R-T Axes : 48 53 -40 degrees QTcB Int : 506 ms Sinus tachycardia Abnormal ECG When compared with ECG of 01-Jan-2024 11:19, (unconfirmed) T wave inversion less evident in Lateral leads Confirmed by Mike Brown ([id number] on 01/01/2024 4:41:33 PM Referred By: REFERRED SELF Confirmed By: Mike Brown
[2024-01-01] MEDS ORDERED: PHENobarbital PO Alcohol Withdrawal PO STA (16:52)
[2024-01-01] MEDS ORDERED: PHENobarbital sodium 65 MG/ML VIAL IM PRN (17:07)
[2024-01-01] MEDS: LACTATED RINGER'S 1,000 ML IV SCH (18:54)
[2024-01-01] MEDS: PHENobarbital sodium 65 MG/ML VIAL IM PRN (20:06)
[2024-01-01] MEDS: busPIRone 5 MG TAB PO SCH (21:51)
[2024-01-01] MEDS: GABAPENTIN 300 MG CAP PO SCH (21:51)
[2024-01-01] MEDS: PRAZOSIN HCL 1 MG CAP PO SCH (21:52)
[2024-01-01] MEDS: MIRTAZAPINE TAB 15 MG TAB PO SCH (21:52)
[2024-01-01] MEDS: PROPRANOLOL HCL 10 MG TAB PO SCH (21:53)
[2024-01-01] MEDS: ONDANSETRON INJ 2 MG/ML 2 ML VIAL IV PRN (22:46)
[2024-01-01] MEDS: PHENobarbital sodium 130 MG/ML VIAL IM STA (22:49)
[2024-01-01 22:58] LABS: Appearance Urine Clear (Clear); Bacteria Urine Automated None Seen (None Seen); Bilirubin Urine Negative (Negative); Blood Urine 1+ (Negative); Cast Urine Automated 0-2 /lpf (0-2); Color Urine Yellow; Glucose Urine UA Negative (Negative); Ketones Urine 3+ (Negative); Leukocyte Esterase Urine Negative (Negative); Nitrite Urine Negative (Negative); Protein Urine 2+ (Negative); Specific Gravity Urine > 1.045 (1.000-1.030); Urobilinogen Urine Negative (Negative); WBC Urine Automated 0-5 /hpf (0-5)
[2024-01-02 06:39] LABS: Albumin Globulin Ratio 1.9 (0.9-2); Albumin Level 3.5 gm/dl (3.4-5.0); BUN Creatinine Ratio 13.6 (10-20); Bilirubin,Total 0.8 mg/dl (0.2-1.0); Calcium 7.7 mg/dl (8.6-10.3); Creatinine Clr Calc Pharmacy 149.4 ml/min; Globulin 1.8 gm/dl (2.5-4.0); Potassium 3.6 mmol/L (3.5-5.1); Total Protein 5.3 gm/dl (6.0-8.3)
[2024-01-02 06:54] LABS: Basophils # (auto) 0.04 K/uL (0.00-0.20); Basophils % (auto) 0.7 %; Eosinophils # (auto) 0.09 K/uL (0.00-0.50); Eosinophils % (auto) 1.7 %; Hematocrit (blood only) 28.3 % (37.0-47.0); Immature Granulocytes # (auto) 0.01 K/uL (0.01-0.20); Immature Granulocytes % (auto) 0.2 %; Lymphocytes % (auto) 29.9 %; Mean Corpuscular Hemoglobin 30.9 pg (25.0-34.0); Mean Corpuscular Hgb Conc 35.3 g/dL (32.0-36.0); Mean Corpuscular Volume 87.3 fL (80.0-100.0); Mean Platelet Volume 10.5 fL (9.4-12.4); Monocytes # (auto) 0.36 K/uL (0.11-0.59); Monocytes % (auto) 6.7 %; Neutrophils # (auto) 3.25 K/uL (1.40-6.50); Neutrophils % (auto) 60.8 %; Platelet Count 98 K/uL (130-400); Platelet Estimate Decreased (Normal); RDW Coefficient of Variation 15.6 % (11.5-14.5); RDW Standard Deviation 50.4 fL (36.4-46.3); Red Blood Count 3.24 M/uL (4.20-5.40); White Blood Count 5.35 K/ul (4.8-10.8)
[2024-01-02] MEDS: FOLIC ACID 1 MG TAB PO SCH (09:12)
[2024-01-02] MEDS: LINACLOTIDE 145 MCG CAPSULE PO SCH (09:12)
[2024-01-02] MEDS: THIAMINE HCL 100 MG TAB PO SCH (09:12)
[2024-01-02] MEDS: hydrOXYzine HCl 25 MG TAB PO PRN (09:12)
[2024-01-02] MEDS: DULoxetine HCL 60 MG CAP PO SCH (09:12)
[2024-01-02] MEDS: PANTOprazole 40 MG in SYRINGE 0 ML IV SCH (09:12)
[2024-01-02] MEDS: PHENobarbitaL 30 MG TAB PO SCH (10:33)
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
[2024-01-02] MEDS ORDERED: Ativan IV Alcohol Withdrawal--Active Protocol IV PRN (10:42)
[2024-01-02] MEDS ORDERED: LORazepam 2 MG/1 ML VIAL IV PRN ×3 (10:42)
[2024-01-02] MEDS ORDERED: LORazepam 1 MG TAB PO PRN ×2 (10:42)
[2024-01-02] MEDS ORDERED: Ativan PO Alcohol Withdrawal--Active Protocol PO PRN (10:42)
--- NOTE | 2024-01-02 11:31 | Gastrointestinal Consultation ---
Date of Consultation January 02, 2024 Assessment & Plan (1) Coffee ground emesis: 38 year old female with ongoing ETOH abuse, PTSD, depression and anxiety admitted w/ intoxication and concern for seizures w/ reports of coffee ground appearing emesis prior to arrival. She notes an episode of emesis this AM which was clear/bilious. She does report some epigastric discomfort but has been tolerating diet and just finished her liquid breakfast tray at time of my consultation. She has remained hemodynamically stable w/ BP 112/76. HGB this AM 10, BUN 9. Her downtrending HGB is likely multifactorial and partially dilutional given 4L of IV fluids since arrival. She has not had any further reports of coffee ground emesis and denies passage of any stools. DDX discussed: esophagitis, MWT, gastritis vs other. Can continue liquid diet, advance as tolerated. Trend H&H. Monitor and document GI output. Transfuse PRN per primary service. May continue PPI IV BID. Consider a 10 day course of QID Carafate. ETOH cessation recommended. May follow up with GI as an outpatient to arrange OP EGD. Thank you for allowing us to participate in the care of this patient. Please call with any acute changes, questions or concerns. Please see addendum below with additional recommendation from my supervising physician. I spent a total of 60 minutes on the date of service in review of patient's record, and previously obtained information in person and appropriate medical visit, discussion and education of plan, with patient and/or caregiver, placing orders for tests/referral/procedures as medically necessary and documentation of pertinent clinical information in patient's medical records for their visit today. Supervising Physician Co-Signing Physician Notes I examined the patient and reviewed patient's chart , laboratory data and imaging studies. I agree with with assessment and plan of care as suggested by advanced practice provider. To follow with GI office to arrange for possible EGD. History of Present Illness Reason for Consultation: coffee ground emesis, liver,ETOH ?cirrhosis Requesting Physician: Navin Mtz MD Attending Physician: Navin Mtz MD History of Present Illness 38 year old female with ongoing ETOH abuse, PTSD, depression and anxiety admitted w/ intoxication and concern for seizures - GI was asked to evaluate for coffee ground emesis. Pt was seen evaluated, chart reviewed. Notes that yesterday she had episode of abd pain, nausea/vomiting and this was coffee ground in appearance. Suggest this AM, pain is resolved but has intermittent nausea. Does report emesis this AM which was clear. After vomiting she felt improved and ate breakfast. No black or bloody stools. Last BM was prior to admission on 12/26. Daily ETOH No NSAIDs No AC HGB 10 BUN 9 Allergies Allergy/AdvReac Type Severity Reaction Status Date / Time lactose AdvReac Intermediate GI DISTRESS Verified 01/01/24 15:52 Home Medications Medication Instructions Recorded Confirmed Type mirtazapine 15 mg tablet 15 mg PO HS 01/15/22 01/01/24 History duloxetine 60 mg capsule,delayed 60 mg PO QAM 04/29/22 01/01/24 History release gabapentin 300 mg capsule 300 mg PO TID 05/23/22 01/01/24 History folic acid 1 mg tablet 1 mg PO DAILY 10/16/22 01/01/24 History propranolol 10 mg tablet 10 mg PO BID #30 tabs 11/11/22 01/01/24 Rx prazosin 1 mg capsule 3 mg PO HS 03/14/23 01/01/24 History buspirone 10 mg tablet 10 mg PO TID 04/29/23 01/01/24 History hydroxyzine HCl 25 mg tablet 25 mg PO QID PRN Anxiety 09/18/23 01/01/24 History linaclotide 145 mcg capsule 145 mcg PO QAM 01/01/24 01/01/24 History (Linzess) multivitamin 1 tab PO DAILY 01/01/24 01/01/24 History Patient History Medical History RUQ pain Abnormal EKG Acute hyponatremia Alcohol withdrawal Alcohol abuse Seizure Hypophosphatemia Irritable bowel syndrome Hyponatremia Leukocytosis Elevated lactic acid level Alcoholic gastritis High anion gap metabolic acidosis Alcoholic ketoacidosis Alcohol withdrawal Sciatica Transaminitis Alcoholism Chest pain at rest History of intussusception Thrombocytopenia Tension headache Breast lump on left side at 11 o'clock position Hypomagnesemia Miscarriage Pancreatitis Surgical History S/P dilation and curettage H/O foot surgery Previous section Family History Mother Depression Anxiety Brother Depression Anxiety Denies family history of Ovarian cancer Prostate cancer Diabetes Myocardial infarction Breast cancer Colorectal cancer Hypertension Social History Smoking Status: Never smoker Second Hand Exposure: No; Do You Dip or Chew Tobacco: No; Hx Alcohol Use: Yes Alcohol type: hard liquor Hx Substance Use: No Preferred Language: Afghan Communication Ability: Effective Visual Impairment: No Limitations Hearing Ability: Normal Segment Block Layer Required: No Beliefs That Will Affect Care: Restorationism Restorationism Beliefs: Lutheran marital status: Current Living Situation: Parent and Other Current Living Situation Comment: Parents and son 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 Physical Exam Constitutional: WD/WN, vitals as above Respiratory: normal respiratory effort, lungs clear to auscultation Cardiovascular: Rate/Rhythm: regular rate and regular rhythm Gastrointestinal (Abdomen): normal bowel sounds, soft, nontender, no hepatosplenomegaly Skin: no rashes, warm and dry Results & Data Vital Signs (Past 12 Hours) Vital Signs Temp Pulse Pulse Resp BP Pulse Ox O2 Del Method 01/02/24 08:00 98 H 01/02/24 07:25 36.8 C 102 H 20 110/71 95 Room Air 01/02/24 05:55 110 H 18 01/02/24 02:50 37 C 118 H 18 108/65 96 Room Air 01/01/24 23:37 116 H Laboratory Results 01/02/24 01/01/24 01/01/24 Range/Units 05:49 Unknown 15:23 WBC 5.35 (4.8-10.8) K/ul RBC 3.24 L (4.20-5.40) M/uL Hgb 10.0 L D (12.0-16.0) g/dl POC Hgb (12.0-16.0) g/dl Hct 28.3 L (37.0-47.0) % POC Hct (37-47) % MCV 87.3 (80.0-100.0) fL MCH 30.9 (25.0-34.0) pg MCHC 35.3 (32.0-36.0) g/dL RDW Std Deviation 50.4 H (36.4-46.3) fL RDW Coeff of Dallin 15.6 H (11.5-14.5) % Plt Count 98 L D (130-400) K/uL MPV 10.5 (9.4-12.4) fL Immature Gran % (Auto) 0.2 % Neut % (Auto) 60.8 % Lymph % (Auto) 29.9 % Cecil % (Auto) 6.7 % Eos % (Auto) 1.7 % Baso % (Auto) 0.7 % Neut # (Auto) 3.25 (1.40-6.50) K/uL Lymph # (Auto) 1.60 (1.20-3.40) K/uL Cecil # (Auto) 0.36 (0.11-0.59) K/uL Eos # (Auto) 0.09 (0.00-0.50) K/uL Baso # (Auto) 0.04 (0.00-0.20) K/uL Immature Gran # (Auto) 0.01 (0.01-0.20) K/uL Platelet Estimate Decreased L (Normal) POC Sodium (135-144) mmol/L Sodium 135 L (136-145) mmol/L POC Potassium (3.3-5.0) mmol/L Potassium 3.6 POC Chloride (101-112) mmol/L Chloride 97 L (98-107) mmol/L Carbon Dioxide 25 (21-32) mmol/L POC Total CO2 (24-31) mmol/L Anion Gap 13 H (3-11) POC Anion Gap (16-25) mmol/L POC BUN (7-18) mg/dl BUN 9 (6-23) mg/dl Creatinine 0.66 (0.6-1.2) mg/dl POC Creatinine (0.6-1.3) mg/dl Est Cr Clr Drug Dosing 149.4 eGFR 114.36 BUN/Creatinine Ratio 13.6 (10-20) Glucose 61 L (70-99(Fasting)) mg/dl POC Glucose (other) (70-99) mg/dl Calcium 7.7 L (8.6-10.3) mg/dl POC Ioniz Calcium Jeffery (1.12-1.32) mmol/l Ionized Calcium 0.96 L (1.12-1.32) mmol/L Magnesium (1.7-2.4) mg/dl Total Bilirubin 0.8 (0.2-1.0) mg/dl Direct Bilirubin AST 106 H ALT 49 (7-52) U/L Alkaline Phosphatase 43 (34-104) U/L Ammonia Cancelled Troponin I High Sens (0-14) pg/ml Total Protein 5.3 L D (6.0-8.3) gm/dl Albumin 3.5 (3.4-5.0) gm/dl Globulin 1.8 L (2.5-4.0) gm/dl Albumin/Globulin Ratio 1.9 (0.9-2) Lipase (11-82) U/L HCG, Qual Urine Color Yellow Urine Appearance Clear (Clear) Urine pH 6.0 (4.5-7.5) Ur Specific [place] > 1.045 H (1.000-1.030) Urine Protein 2+ H (Negative) Urine Glucose (UA) Negative (Negative) Urine Ketones 3+ H (Negative) Urine Blood 1+ H (Negative) Urine Nitrite Negative (Negative) Urine Bilirubin Negative (Negative) Urine Urobilinogen Negative (Negative) Ur Leukocyte Esterase Negative (Negative) Urine WBC (Auto) 0-5 (0-5) /hpf Urine RBC (Auto) 3-5 H (0-2) /hpf U Hyaline Cast (Auto) 0-2 (0-2) /lpf U Epithel Cells (Auto) 3-5 H (0-2) /hpf Urine Bacteria (Auto) None Seen (None Seen) Ethyl Alcohol mg/dL (<10.0) mg/dl 01/01/24 01/01/24 01/01/24 Range/Units 14:17 12:39 12:38 WBC 9.71 (4.8-10.8) K/ul RBC 4.65 (4.20-5.40) M/uL Hgb 14.7 (12.0-16.0) g/dl POC Hgb 18.4 H (12.0-16.0) g/dl Hct 41.3 (37.0-47.0) % POC Hct 54 H (37-47) % MCV 88.8 (80.0-100.0) fL MCH 31.6 (25.0-34.0) pg MCHC 35.6 (32.0-36.0) g/dL RDW Std Deviation 51.2 H (36.4-46.3) fL RDW Coeff of Dallin 15.9 H (11.5-14.5) % Plt Count 204 (130-400) K/uL MPV 10.4 (9.4-12.4) fL Immature Gran % (Auto) 0.3 % Neut % (Auto) 77.9 % Lymph % (Auto) 16.7 % Cecil % (Auto) 4.0 % Eos % (Auto) 0.0 % Baso % (Auto) 1.1 % Neut # (Auto) 7.56 H (1.40-6.50) K/uL Lymph # (Auto) 1.62 (1.20-3.40) K/uL Cecil # (Auto) 0.39 (0.11-0.59) K/uL Eos # (Auto) 0.00 (0.00-0.50) K/uL Baso # (Auto) 0.11 (0.00-0.20) K/uL Immature Gran # (Auto) 0.03 (0.01-0.20) K/uL Platelet Estimate (Normal) POC Sodium 135 (135-144) mmol/L Sodium 136 (136-145) mmol/L POC Potassium 5.8 H (3.3-5.0) mmol/L Potassium 4.1 TNP POC Chloride 99 L (101-112) mmol/L Chloride 93 L (98-107) mmol/L Carbon Dioxide 19 L (21-32) mmol/L POC Total CO2 17 L (24-31) mmol/L Anion Gap 24 H (3-11) POC Anion Gap 25.0 (16-25) mmol/L POC BUN 12 (7-18) mg/dl BUN 11 (6-23) mg/dl Creatinine 0.68 (0.6-1.2) mg/dl POC Creatinine 1.0 (0.6-1.3) mg/dl Est Cr Clr Drug Dosing Not Reportable eGFR 113.54 BUN/Creatinine Ratio 16.2 (10-20) Glucose 72 (70-99(Fasting)) mg/dl POC Glucose (other) 73 (70-99) mg/dl Calcium 8.0 L (8.6-10.3) mg/dl POC Ioniz Calcium Jeffery 0.74 L* (1.12-1.32) mmol/l Ionized Calcium (1.12-1.32) mmol/L Magnesium 1.9 (1.7-2.4) mg/dl Total Bilirubin 0.4 (0.2-1.0) mg/dl Direct Bilirubin 0.1 TNP AST 140 H TNP ALT 70 H (7-52) U/L Alkaline Phosphatase 62 (34-104) U/L Ammonia Troponin I High Sens 5.8 (0-14) pg/ml Total Protein 7.7 (6.0-8.3) gm/dl Albumin 4.7 (3.4-5.0) gm/dl Globulin (2.5-4.0) gm/dl Albumin/Globulin Ratio (0.9-2) Lipase 44 (11-82) U/L HCG, Qual Negative Cancelled Urine Color Urine Appearance (Clear) Urine pH (4.5-7.5) Ur Specific [place] (1.000-1.030) Urine Protein (Negative) Urine Glucose (UA) (Negative) Urine Ketones (Negative) Urine Blood (Negative) Urine Nitrite (Negative) Urine Bilirubin (Negative) Urine Urobilinogen (Negative) Ur Leukocyte Esterase (Negative) Urine WBC (Auto) (0-5) /hpf Urine RBC (Auto) (0-2) /hpf U Hyaline Cast (Auto) (0-2) /lpf U Epithel Cells (Auto) (0-2) /hpf Urine Bacteria (Auto) (None Seen) Ethyl Alcohol mg/dL 516.9 H (<10.0) mg/dl PG Care Time/CCT Total # of Minutes Spent Total Time Spent with Patient: Total time spent is greater than 50% in coordination of care (as documented) at patient's floor/unit and/or counseling patient: Coding Level of Care Code 25662 INT INP/OBS CARE 2/55MIN Diagnoses Coffee ground emesis K92.0
[2024-01-02] MEDS: MAGNESIUM OXIDE 400 MG TAB PO SCH (12:02)
[2024-01-02] MEDS: LORazepam 1 MG TAB PO PRN (12:10)
[2024-01-02 14:21] LABS: Amphetamines+Metham, Urine Neg (Neg); Barbiturates, Urine Pos (Neg); Benzodiazepine, Urine Pos (Neg); Cocaine, Urine Neg (Neg); Fentanyl, Urine Neg (Neg); MDMA (Ecstacy), Urine Neg (Neg); Marijuana, Urine Neg (Neg); Methadone, Urine Neg (Neg); Opiate, Urine Neg (Neg); Phencyclidine, Urine Neg (Neg)
[2024-01-02] MEDS: PANTOprazole 40 MG TAB PO SCH (20:01)
[2024-01-03 06:59] LABS: Albumin Globulin Ratio 1.8 (0.9-2); Albumin Level 3.6 gm/dl (3.4-5.0); BUN Creatinine Ratio 12.3 (10-20); Bilirubin,Total 0.8 mg/dl (0.2-1.0); Calcium 8.3 mg/dl (8.6-10.3); Creatinine Clr Calc Pharmacy 149.4 ml/min; Magnesium 1.6 mg/dl (1.7-2.4); Potassium 3.3 mmol/L (3.5-5.1); Total Protein 5.6 gm/dl (6.0-8.3)
[2024-01-03 07:01] LABS: Basophils # (auto) 0.03 K/uL (0.00-0.20); Basophils % (auto) 0.9 %; Eosinophils # (auto) 0.09 K/uL (0.00-0.50); Eosinophils % (auto) 2.7 %; Hematocrit (blood only) 34.5 % (37.0-47.0); Hemoglobin 11.3 g/dl (12.0-16.0); Immature Granulocytes # (auto) 0.02 K/uL (0.01-0.20); Immature Granulocytes % (auto) 0.6 %; Lymphocytes # (auto) 1.27 K/uL (1.20-3.40); Lymphocytes % (auto) 37.9 %; Mean Corpuscular Hemoglobin 30.5 pg (25.0-34.0); Mean Corpuscular Hgb Conc 32.8 g/dL (32.0-36.0); Mean Corpuscular Volume 93.2 fL (80.0-100.0); Mean Platelet Volume 11.4 fL (9.4-12.4); Monocytes # (auto) 0.16 K/uL (0.11-0.59); Monocytes % (auto) 4.8 %; Neutrophils # (auto) 1.78 K/uL (1.40-6.50); Neutrophils % (auto) 53.1 %; Platelet Count 74 K/uL (130-400); RDW Coefficient of Variation 15.3 % (11.5-14.5); RDW Standard Deviation 52.6 fL (36.4-46.3); White Blood Count 3.35 K/ul (4.8-10.8)
[2024-01-03 07:04] LABS: Prothrombin Time 10.8 Seconds (9.0-12.0)
[2024-01-03] MEDS: POTASSIUM CHLORIDE CRTAB 20 MEQ TABCR PO STA (09:31)
[2024-01-03] MEDS: CEROVITE ADV FORMULA TAB PO SCH (09:32)
[2024-01-03] MEDS: MAGNESIUM SULFATE / D5W 1 GM/100 ML BAG IV SCH (09:37)
[2024-01-03] MEDS: PHENobarbitaL 30 MG TAB PO SCH (10:29)
--- NOTE | 2024-01-03 13:11 | Hospitalist Progress Note ---
Date of Service January 03, 2024 Assessment & Plan (1) Alcohol withdrawal: (2) Alcohol use disorder: (3) Hepatic steatosis: (4) Elevated liver enzymes: (5) Coffee ground emesis: (6) Depression: (7) PTSD (post-traumatic stress disorder): Plan 38-year-old female with past medical history of alcohol use disorder with withdrawal with history of alcohol withdrawal seizure, PTSD/depression, hepatic steatosis secondary to alcohol use presents with coffee-ground emesis, hallucinations with seeing bats in the wall and thinking that she may have fallen off her bed to the ground. Patient's alcohol level was greater than 500 and she was admitted for alcohol withdrawal with coffee-ground emesis #Alcohol use disorder with withdrawal #PTSD #Depression #History of alcohol withdrawal seizure Continue phenobarb taper She was seen by neurologist Dr. Randle on her last admission on 12/12/2023 and AEDs were not recommended at that time Continue alcohol withdrawal protocol with Ativan Thiamine plus folic acid plus multivitamin Patient met with psychiatry liaison and also with case management wants to pursue outpatient treatment programs Patient requesting to speak with psychiatry: Psychiatry consulted Continue mirtazapine plus gabapentin plus prazosin plus propranolol plus BuSpar Alcohol cessation counseling provided Outpatient follow-up with behavioral health #Coffee-ground emesis #Transaminitis/abnormal LFTs #Thrombocytopenia secondary to alcohol use #Hepatic steatosis secondary to alcohol use Monitor LFTs Monitor platelet count GI saw the patient. Coffee-ground emesis has resolved and H&H is stable Continue PPI per GI recommendations GI has recommended outpatient follow-up for EGD as outpatient CODE STATUS: Full code DVT prophylaxis: Bilateral SCDs Discharge planning Home likely in the next 24 to 48 hours based on clinical improvement Care plan discussed with patient, nursing staff Admission and Anticipated Discharge Date Admission Date: January 01, 2024 Subjective Patient seen and examined Labs reviewed GI recommendations reviewed Feels much better today She met with the psych liaison yesterday and feels good about her conversation She wants to go back to using Vivitrol and has arrangements with outpatient facilities in [place] She already has naltrexone at home She is motivated to quit drinking She denies any coffee-ground emesis, tolerating oral diet without any issues Denies any chest pain or shortness of breath Overall feels better Physical Exam Physical Exam: General: No acute distress Psych: Awake and alert HEENT: Anicteric sclera, moist oral mucosa, no tongue fasciculations noted CVS: Regular rate and rhythm Lungs: Bilateral air entry, no wheezing noted Abdomen: Soft, nontender, no rebound, no guarding Ext: No lower extremity edema, no calf tenderness Neuro: No focal motor deficits noted Results & Data Results & Data Vital Signs (Past 12 Hours) Vital Signs Temp Pulse Pulse Resp BP BP Pulse Ox 01/03/24 10:52 37.2 C 82 19 116/84 95 01/03/24 08:00 67 01/03/24 07:50 36.7 C 71 19 123/85 95 01/03/24 02:35 36.6 C 76 14 130/78 96 O2 Del Method 01/03/24 10:52 Room Air 01/03/24 08:00 01/03/24 07:50 Room Air 01/03/24 02:35 Room Air Laboratory Results Laboratory Results - last 24 hr 01/02/24 01/02/24 01/03/24 09:36 12:45 06:02 WBC 3.35 L RBC 3.70 L Hgb 11.3 L Hct 34.5 L MCV 93.2 D MCH 30.5 MCHC 32.8 RDW Std Deviation 52.6 H RDW Coeff of Dallin 15.3 H Plt Count 74 L MPV 11.4 Immature Gran % (Auto) 0.6 Neut % (Auto) 53.1 Lymph % (Auto) 37.9 Union % (Auto) 4.8 Eos % (Auto) 2.7 Baso % (Auto) 0.9 Neut # (Auto) 1.78 Lymph # (Auto) 1.27 Union # (Auto) 0.16 Eos # (Auto) 0.09 Baso # (Auto) 0.03 Immature Gran # (Auto) 0.02 PT 10.8 INR 1.0 Sodium 139 Potassium 3.3 L Chloride 98 Carbon Dioxide 30 Anion Gap 11 BUN 8 Creatinine 0.65 Est Cr Clr Drug Dosing 149.4 eGFR 114.78 BUN/Creatinine Ratio 12.3 Glucose 62 L Calcium 8.3 L Magnesium 1.6 L Total Bilirubin 0.8 AST 99 H ALT 49 Alkaline Phosphatase 46 Total Protein 5.6 L Albumin 3.6 Globulin 2.0 L Albumin/Globulin Ratio 1.8 POC Ur Test Pending Urine Butalbital Pending Urine Opiates Screen Neg Ur Methadone, Qual Neg Urine Fentanyl Screen Neg Urine Barbiturates Pos H Ur Phencyclidine (PCP) Neg U Amphetamin/Meth Scrn Neg MDMA (Ecstasy) Screen Neg Urine Amobarbital Pending Urine Pentobarbital Pending Urine Phenobarbital Pending Urine Secobarbital Pending U OH-Alprazolam Confrm Pending U Benzodiazepines Scrn Pos H 7-Amino Clonazepam Pending Ur Nordiazepam Confirm Pending U OH-ethylflurazepam Pending U Lorazepam Cnf GC/MS Pending U Oxazepam Confm GC/MS Pending Ur Temazepam Confirm Pending U OH-Triazolam Confirm Pending U OH-Midazolam Confirm Pending Ur Cocaine Metabolite Neg U Marijuana (THC) Screen Neg Drug Screen Comment Pending PG Care Time/CCT Total # of Minutes Spent Total Time Spent with Patient: Total time spent is greater than 50% in coordination of care (as documented) at patient's floor/unit and/or counseling patient: Coding Level of Care Code 67475 SUB INP/OBS CARE 2/35MIN Diagnoses Alcohol withdrawal F10.939 Complication of substance-induced condition: with unspecified complication Alcohol use disorder F10.90 Hepatic steatosis K76.0 Elevated liver enzymes R74.8 Coffee ground emesis K92.0 Depression F32.A PTSD (post-traumatic stress disorder) F43.10 (1) Alcohol withdrawal Complication of substance-induced condition: with unspecified complication Qualified Code(s): F10.939 - Alcohol use, unspecified with withdrawal, unspecified
[2024-01-04 06:17] LABS: Hematocrit (blood only) 33.4 % (37.0-47.0); Hemoglobin 11.5 g/dl (12.0-16.0); Mean Corpuscular Hemoglobin 31.1 pg (25.0-34.0); Mean Corpuscular Hgb Conc 34.4 g/dL (32.0-36.0); Mean Corpuscular Volume 90.3 fL (80.0-100.0); Mean Platelet Volume 12.3 fL (9.4-12.4); Platelet Count 65 K/uL (130-400); RDW Coefficient of Variation 14.6 % (11.5-14.5); White Blood Count 3.75 K/ul (4.8-10.8)
[2024-01-04 06:46] LABS: Albumin Globulin Ratio 1.7 (0.9-2); Albumin Level 3.7 gm/dl (3.4-5.0); BUN Creatinine Ratio 7.7 (10-20); Bilirubin,Total 0.5 mg/dl (0.2-1.0); Calcium 8.8 mg/dl (8.6-10.3); Creatinine Clr Calc Pharmacy 138.3 ml/min; Globulin 2.2 gm/dl (2.5-4.0); Magnesium 1.6 mg/dl (1.7-2.4); Potassium 3.5 mmol/L (3.5-5.1); Total Protein 5.9 gm/dl (6.0-8.3)
[2024-01-04 07:32] VITALS: RESP 19
[2024-01-04] MEDS: MAGNESIUM SULFATE / D5W 1 GM/100 ML BAG IV SCH (09:42)
[2024-01-04] MEDS: POTASSIUM CHLORIDE CRTAB 20 MEQ TABCR PO STA (09:42)
[2024-01-04 10:27] VITALS: BP 130/90; TEMP 98.2; O2SAT 97
--- NOTE | 2024-01-04 11:00 | Discharge Summary ---
Discharge Summary Date of Service January 04, 2024 Principal Dx & Hospital Course #1 = Principal Diagnosis (1) Alcohol withdrawal: (2) Alcohol use disorder: (3) Hepatic steatosis: (4) Elevated liver enzymes: (5) Coffee ground emesis: (6) Depression: (7) PTSD (post-traumatic stress disorder): (8) Hypomagnesemia: Plan 38-year-old female with past medical history of alcohol use disorder with withdrawal with history of alcohol withdrawal seizure, PTSD/depression, hepatic steatosis secondary to alcohol use presents with coffee-ground emesis, hallucinations with seeing bats in the wall and thinking that she may have fallen off her bed to the ground. Patient's alcohol level was greater than 500 and she was admitted for alcohol withdrawal with coffee-ground emesis #Alcohol use disorder with withdrawal #PTSD #Depression #History of alcohol withdrawal seizure She was seen by neurologist Dr. Randle on her last admission on 12/12/2023 and AEDs were not recommended at that time Patient was on a phenobarb taper and she is finished her taper. She is no longer in withdrawal Thiamine plus folic acid plus multivitamin Patient met with psychiatry liaison and also with case management wants to pursue outpatient treatment programs Patient requesting to speak with psychiatry: Psychiatry consulted Continue mirtazapine plus gabapentin plus prazosin plus propranolol plus BuSpar Alcohol cessation counseling provided Outpatient follow-up with behavioral health at [facility] and also [facility] for Vivitrol Patient advised not to drive until she follows up with PCP for clearance for driving. Patient verbalized understanding my instructions #Coffee-ground emesis: Resolved #Transaminitis/abnormal LFTs #Thrombocytopenia secondary to alcohol use #Hepatic steatosis secondary to alcohol use GI saw the patient. Coffee-ground emesis has resolved and H&H is stable Continue PPI per GI recommendations GI has recommended outpatient follow-up for EGD as outpatient I have advised the patient to continue PPI and see GI as an outpatient regarding hepatic steatosis and also outpatient EGD and further recommendations regarding continuing PPI per outpatient GI recommendations Outpatient follow-up with PCP to monitor platelet count and hemoglobin and liver function #Hypomagnesemia Likely from chronic alcohol use Patient states she has been need some supplements at home Patient is received IV and p.o. magnesium replacement during hospital stay Outpatient follow-up with PCP to monitor magnesium levels Patient seen and examined. She is stable for discharge. Of gone over the discharge care plan, follow-up and medications with the patient in great detail and answered all her questions. This discharge took greater than 30 minutes to coordinate Admission HPI Per Admitting Provider Radha Ybarra is a 38 year old female well known to the service for alcohol use disorder with prior alcohol withdrawal including seizures. Since her last hospitalization she has continued to drink a 5th of vodka / day. Last drink was 9am this morning and when seen at 3pm she is already starting to get agitated and shaking. She also notes having hallucinations and seeing bats on the wall. She thinks she possible had a seizure and rolled off the bed to the ground. Some concern for vomiting coffee ground emesis in addition. Right sided abdominal pain ongoing from prior admissions. She denies any other illicit drug use and reports to take all of her other medications. Discharge Exam General: No acute distress, smiling Psych: Awake and alert HEENT: Anicteric sclera, moist oral mucosa CVS: Regular rate and rhythm Lungs: Bilateral air entry, no wheezing noted Abdomen: Soft, nontender, no rebound, no guarding Ext: No lower extremity edema, no calf tenderness Neuro: No focal motor deficits noted Discharge Plan Discharge Items Patient Disposition: Home - Self-Care Reason For Visit: ALCOHOL WITHDRAWAL Discharge Diagnosis: #Alcohol use disorder with withdrawal #PTSD #Depression #History of alcohol withdrawal seizure #Transaminitis/abnormal LFTs #Thrombocytopenia secondary to alcohol use #Hepatic steatosis secondary to alcohol use #Hypomagnesemia Activity: Resume your previous activity Driving/Machine Use: No driving until cleared by PCP Non-emergency contact: Primary Care Provider Call non-emergency contact if: you have any medication questions, your symptoms worsen and you have a fever Follow-up/Referrals: ASHLEY NOEL [Other] Case,Jaquan Simon, [Physician] - Diet: Regular Addtl Attending Provider Instructions: DISCHARGE INSTRUCTION TO PATIENT/FAMILY: Follow-up with your primary care provider within 1 week regarding: Posthospital discharge, medication review, medication refills and follow-up on all your medical problems, LABS Please take all your discharge medications, discharge information and discharge instructions to all your doctors appointments. Avoid all NSAIDs including ibuprofen, Motrin, Advil, Aleve, naproxen, meloxicam, Toradol, diclofenac Follow-up with [facility] outpatient behavioral health and outpatient [facility] in [place] for your appointment regarding outpatient Vivitrol No driving until you have been cleared by your PCP to drive You were seen by infant and toddler teacher for coffee-ground vomiting. He was started on Protonix 40 mg daily: Please take 30 minutes before your first meal of the day. Follow-up with infant and toddler teacher as an outpatient for outpatient endoscopy (EGD) and for further recommendations regarding continuing Protonix You have severe fatty liver (hepatic steatosis) related to alcohol use. Please follow-up with gastroenterology as an outpatient. Please avoid all alcohol use Labs through PCP in 1 week: CBC, CMP, MG, VITAMIN D, VITAMIN B12 Pending Studies at Discharge: No Stand-Alone Forms: My [facility], Smoking Cessation Medications and DC Order Prescriptions: New thiamine HCl (vitamin B1) 100 mg Tablet 100 mg PO QAM Qty: 30 0RF Rx Instructions: AVAILABLE OVER THE COUNTER pantoprazole 40 mg Tablet,Delayed Release (Dr/Ec) 40 mg PO DAILYBB Qty: 30 0RF Rx Instructions: Take 30 minutes before first meal of the day, follow-up with GI for outpatien t endoscopy and recommendations regarding continuing medication magnesium oxide 400 mg (241.3 mg magnesium) Tablet 400 mg PO BID Qty: 30 0RF Rx Instructions: AVAILABLE OVER THE COUNTER Continued duloxetine 60 mg capsule,delayed release(DR/EC) 60 mg PO QAM propranolol 10 mg tablet 10 mg PO BID Qty: 30 6RF mirtazapine 15 mg tablet 15 mg PO HS gabapentin 300 mg capsule 300 mg PO TID buspirone 10 mg Tablet 10 mg PO TID folic acid 1 mg tablet 1 mg PO DAILY prazosin 1 mg capsule 3 mg PO HS multivitamin Tablet 1 tab PO DAILY Linzess 145 mcg capsule 145 mcg PO QAM hydroxyzine HCl 25 mg tablet 25 mg PO QID PRN (Reason: Anxiety) Discharge Orders: Discharge Order (Routine); Ordered 01/04/24 Ordered By: Navin Oreilly/Other Patient Handouts: Alcohol Addiction Admission Data Admit Date/Time: 01/01/24 15:18 Attending Provider: Navin Mtz Admit Provider: Patrick Polo Primary Care Provider: ASHLEY NOEL Other Providers: Patrick Polo; Jonh [facility] Hospital Stay Data Consultations 01/01/24 14:14 ED Decision to Admit Stat 01/02/24 10:39 Consult Gastroenterology Routine 01/02/24 11:47 Consult Behavioral Health Liaison Routine Diagnostic Imagining Performed 01/01/24 11:55 CT abd pelvis IV con only Stat CT cervical spine wo con Stat CT head/brain wo con Stat 01/01/24 12:45 CT chest diagnostic w con Stat Abdomen/Pelvis CT 01/01/24 11:[address] WITH IV CONTRAST CT DOSE: 3546.52 mGy.cm HISTORY: Acute generalized abdominal pain status post fall fall, etoh, R abd pain TECHNIQUE: Multiaxial CT images of the abdomen and pelvis were performed following the IV administration of 94 cc of Optiray, A dose lowering technique was utilized adhering to the principles of ALARA. COMPARISON STUDY: Chest CT of same day, CT abdomen and pelvis 09/18/2023 FINDINGS: The lung bases are clear. The spleen, gallbladder, pancreas, kidneys, and adrenal glands are within normal limits. Hepatic steatosis. Patency of the hepatic and portal veins. No bowel wall thickening or obstruction. Normal appendix. The pelvic organs are unremarkable. Chronic L5 pars defects. There is moderate L5-S1 intervertebral disc space narrowing with 4 mm anterolisthesis. No suspicious lytic or blastic osseous lesions. IMPRESSION: 1. No acute posttraumatic intra-abdominal or intrapelvic abnormality. 2. Hepatic steatosis. 3. Normal appendix. ACT 112: Negative or not required by law. The above report was generated using voice recognition software. It may contain grammatical, syntax or spelling errors. Electronically signed by: Boston Fernando M.D. 01/01/2024 1:[address] 01/01/24 11:55 CT OF THE CERVICAL SPINE WITHOUT CONTRAST CLINICAL HISTORY: fall, etoh COMPARISON STUDY: Cervical spine CT November 24, 2022. TECHNIQUE: Helical axial images of the cervical spine were obtained without IV contrast. Sagittal and coronal reconstructions were viewed. Automated exposure control was utilized for the study. A dose lowering technique was utilized adhering to the principles of ALARA. FINDINGS: There is straightening of the cervical lordosis. Vertebral body heights are maintained. No acute cervical spine fracture or subluxation is present. There is no prevertebral edema. Facet joints are intact. IMPRESSION: No acute cervical spine fracture or subluxation. ACT 112: Negative or not required by law. Electronically signed by: Hung Stubbs M.D. 01/01/2024 1:[address] 01/01/24 11:55 CT head/brain wo con CLINICAL HISTORY: 38 years-old Female with fall, etoh. Acute head trauma status post fall TECHNIQUE: Multiple axial CT images of the head were obtained without contrast. A dose lowering technique was utilized adhering to the principles of ALARA. COMPARISON: 12/11/2023 FINDINGS: No acute intracranial hemorrhage, midline shift, intracranial mass, hydrocephalus, territorial ischemia or abnormal extra-axial collection. Minimal bifrontal involutional changes are again noted. The calvarium is intact. The paranasal sinuses, mastoid air cells, and middle ear cavities are clear. IMPRESSION: No acute intracranial abnormality or calvarial fracture. ACT 112: Negative or not required by law. The above report was generated using voice recognition software. It may contain grammatical, syntax or spelling errors. Electronically signed by: Boston Fernando M.D. 01/01/2024 1:[address] 01/01/24 12:45 CT SCAN OF THE CHEST WITH IV CONTRAST CLINICAL HISTORY: Atypical chest pain. Fall. Intoxication. COMPARISON STUDY: Chest CT dated 03/13/2023. Chest x-ray dated 12/11/2023. TECHNIQUE: Following the IV administration of 94 cc of Optiray 320, CT scan of the thorax was performed from the thoracic inlet to the upper abdomen. Images are reviewed in the axial, sagittal, and coronal planes. IV contrast was administered without complication. A dose lowering technique was utilized adhering to the principles of ALARA. The examination is degraded by streak artifact from the arms which could not be elevated above the chest. FINDINGS: Thyroid: Imaged portions of the thyroid gland are normal in size and attenuation. Thoracic aorta: The thoracic aorta is normal in caliber and demonstrates 4- vessel variant arch anatomy. No dissection is seen. Pulmonary vasculature: The pulmonary trunk is normal in caliber. There are no filling defects identified in the central pulmonary vessels to indicate pulmonary embolus. Note that this examination was not protocoled for evaluation of the pulmonary arteries. Heart: The heart is normal in size and without pericardial effusion. Lungs and pleural spaces: There is no airspace consolidation, pleural effusion, or pneumothorax. The trachea and central airways are clear. Mediastinum: There is no mediastinal hematoma or lymphadenopathy. July: Clear. Axillae: There is no axillary lymphadenopathy. Upper abdomen: There are severe hepatic steatosis. Partially visualized upper abdominal viscera is otherwise grossly unremarkable. Skeletal structures: No lytic or blastic bony lesions are seen. IMPRESSION: 1. There is no acute posttraumatic intrathoracic abnormality. 2. There is no airspace consolidation, pleural effusion, or pneumothorax. 3. Severe hepatic steatosis. 4. Additional findings as above. ACT 112: Negative or not required by law. Electronically signed by: Todd Espinosa M.D. 01/01/2024 2:58 PM Laboratory Results - last 72 hr 01/01/24 01/01/24 01/01/24 12:38 12:39 14:17 WBC 9.71 RBC 4.65 Hgb 14.7 POC Hgb 18.4 H Hct 41.3 POC Hct 54 H MCV 88.8 MCH 31.6 MCHC 35.6 RDW Std Deviation 51.2 H RDW Coeff of Dallin 15.9 H Plt Count 204 MPV 10.4 Immature Gran % (Auto) 0.3 Neut % (Auto) 77.9 Lymph % (Auto) 16.7 Story % (Auto) 4.0 Eos % (Auto) 0.0 Baso % (Auto) 1.1 Neut # (Auto) 7.56 H Lymph # (Auto) 1.62 Story # (Auto) 0.39 Eos # (Auto) 0.00 Baso # (Auto) 0.11 Immature Gran # (Auto) 0.03 Platelet Estimate PT INR POC Sodium 135 Sodium 136 POC Potassium 5.8 H Potassium TNP 4.1 POC Chloride 99 L Chloride 93 L Carbon Dioxide 19 L POC Total CO2 17 L Anion Gap 24 H POC Anion Gap 25.0 POC BUN 12 BUN 11 Creatinine 0.68 POC Creatinine 1.0 Est Cr Clr Drug Dosing Not Reportable eGFR 113.54 BUN/Creatinine Ratio 16.2 Glucose 72 POC Glucose (other) 73 Calcium 8.0 L POC Ioniz Calcium Jeffery 0.74 L* Ionized Calcium Magnesium 1.9 Total Bilirubin 0.4 Direct Bilirubin TNP 0.1 AST TNP 140 H ALT 70 H Alkaline Phosphatase 62 Ammonia Troponin I High Sens 5.8 Total Protein 7.7 Albumin 4.7 Globulin Albumin/Globulin Ratio Lipase 44 HCG, Qual Cancelled Negative Urine Color Urine Appearance Urine pH Ur Specific Raymond Urine Protein Urine Glucose (UA) Urine Ketones Urine Blood Urine Nitrite Urine Bilirubin Urine Urobilinogen Ur Leukocyte Esterase Urine WBC (Auto) Urine RBC (Auto) U Hyaline Cast (Auto) U Epithel Cells (Auto) Urine Bacteria (Auto) Urine Opiates Screen Ur Methadone, Qual Urine Fentanyl Screen Urine Barbiturates Ur Phencyclidine (PCP) U Amphetamin/Meth Scrn MDMA (Ecstasy) Screen U Benzodiazepines Scrn Ur Cocaine Metabolite U Marijuana (THC) Screen Ethyl Alcohol mg/dL 516.9 H 01/01/24 01/01/24 01/02/24 15:23 Unknown 05:49 WBC 5.35 RBC 3.24 L Hgb 10.0 L D POC Hgb Hct 28.3 L POC Hct MCV 87.3 MCH 30.9 MCHC 35.3 RDW Std Deviation 50.4 H RDW Coeff of Dallin 15.6 H Plt Count 98 L D MPV 10.5 Immature Gran % (Auto) 0.2 Neut % (Auto) 60.8 Lymph % (Auto) 29.9 Story % (Auto) 6.7 Eos % (Auto) 1.7 Baso % (Auto) 0.7 Neut # (Auto) 3.25 Lymph # (Auto) 1.60 Story # (Auto) 0.36 Eos # (Auto) 0.09 Baso # (Auto) 0.04 Immature Gran # (Auto) 0.01 Platelet Estimate Decreased L PT INR POC Sodium Sodium 135 L POC Potassium Potassium 3.6 POC Chloride Chloride 97 L Carbon Dioxide 25 POC Total CO2 Anion Gap 13 H POC Anion Gap POC BUN BUN 9 Creatinine 0.66 POC Creatinine Est Cr Clr Drug Dosing 149.4 eGFR 114.36 BUN/Creatinine Ratio 13.6 Glucose 61 L POC Glucose (other) Calcium 7.7 L POC Ioniz Calcium Jeffery Ionized Calcium 0.96 L Magnesium Total Bilirubin 0.8 Direct Bilirubin AST 106 H ALT 49 Alkaline Phosphatase 43 Ammonia Cancelled Troponin I High Sens Total Protein 5.3 L D Albumin 3.5 Globulin 1.8 L Albumin/Globulin Ratio 1.9 Lipase HCG, Qual Urine Color Yellow Urine Appearance Clear Urine pH 6.0 Ur Specific Raymond > 1.045 H Urine Protein 2+ H Urine Glucose (UA) Negative Urine Ketones 3+ H Urine Blood 1+ H Urine Nitrite Negative Urine Bilirubin Negative Urine Urobilinogen Negative Ur Leukocyte Esterase Negative Urine WBC (Auto) 0-5 Urine RBC (Auto) 3-5 H U Hyaline Cast (Auto) 0-2 U Epithel Cells (Auto) 3-5 H Urine Bacteria (Auto) None Seen Urine Opiates Screen Ur Methadone, Qual Urine Fentanyl Screen Urine Barbiturates Ur Phencyclidine (PCP) U Amphetamin/Meth Scrn MDMA (Ecstasy) Screen U Benzodiazepines Scrn Ur Cocaine Metabolite U Marijuana (THC) Screen Ethyl Alcohol mg/dL 01/02/24 01/03/24 01/04/24 12:45 06:02 05:33 WBC 3.35 L 3.75 L RBC 3.70 L 3.70 L Hgb 11.3 L 11.5 L POC Hgb Hct 34.5 L 33.4 L POC Hct MCV 93.2 D 90.3 MCH 30.5 31.1 MCHC 32.8 34.4 RDW Std Deviation 52.6 H 48.0 H RDW Coeff of Dallin 15.3 H 14.6 H Plt Count 74 L 65 L MPV 11.4 12.3 Immature Gran % (Auto) 0.6 Neut % (Auto) 53.1 Lymph % (Auto) 37.9 Story % (Auto) 4.8 Eos % (Auto) 2.7 Baso % (Auto) 0.9 Neut # (Auto) 1.78 Lymph # (Auto) 1.27 Story # (Auto) 0.16 Eos # (Auto) 0.09 Baso # (Auto) 0.03 Immature Gran # (Auto) 0.02 Platelet Estimate PT 10.8 INR 1.0 POC Sodium Sodium 139 136 POC Potassium Potassium 3.3 L 3.5 POC Chloride Chloride 98 98 Carbon Dioxide 30 30 POC Total CO2 Anion Gap 11 8 POC Anion Gap POC BUN BUN 8 5 L Creatinine 0.65 0.65 POC Creatinine Est Cr Clr Drug Dosing 149.4 138.3 eGFR 114.78 114.78 BUN/Creatinine Ratio 12.3 7.7 L Glucose 62 L 77 POC Glucose (other) Calcium 8.3 L 8.8 POC Ioniz Calcium Jeffery Ionized Calcium Magnesium 1.6 L 1.6 L Total Bilirubin 0.8 0.5 Direct Bilirubin AST 99 H 181 H ALT 49 77 H Alkaline Phosphatase 46 49 Ammonia Troponin I High Sens Total Protein 5.6 L 5.9 L Albumin 3.6 3.7 Globulin 2.0 L 2.2 L Albumin/Globulin Ratio 1.8 1.7 Lipase HCG, Qual Urine Color Urine Appearance Urine pH Ur Specific Raymond Urine Protein Urine Glucose (UA) Urine Ketones Urine Blood Urine Nitrite Urine Bilirubin Urine Urobilinogen Ur Leukocyte Esterase Urine WBC (Auto) Urine RBC (Auto) U Hyaline Cast (Auto) U Epithel Cells (Auto) Urine Bacteria (Auto) Urine Opiates Screen Neg Ur Methadone, Qual Neg Urine Fentanyl Screen Neg Urine Barbiturates Pos H Ur Phencyclidine (PCP) Neg U Amphetamin/Meth Scrn Neg MDMA (Ecstasy) Screen Neg U Benzodiazepines Scrn Pos H Ur Cocaine Metabolite Neg U Marijuana (THC) Screen Neg Ethyl Alcohol mg/dL Pending Results Patient Have Any Pending Studies at Discharge: No Discharge Instructions Given to Patient (Per Discharging Provider) DISCHARGE INSTRUCTION TO PATIENT/FAMILY: Follow-up with your primary care provider within 1 week regarding: Posthospital discharge, medication review, medication refills and follow-up on all your medical problems, LABS Please take all your discharge medications, discharge information and discharge instructions to all your doctors appointments. Avoid all NSAIDs including ibuprofen, Motrin, Advil, Aleve, naproxen, meloxicam, Toradol, diclofenac Follow-up with [facility] outpatient behavioral health and outpatient [facility] in [place] for your appointment regarding outpatient Vivitrol No driving until you have been cleared by your PCP to drive You were seen by infant and toddler teacher for coffee-ground vomiting. He was started on Protonix 40 mg daily: Please take 30 minutes before your first meal of the day. Follow-up with infant and toddler teacher as an outpatient for outpatient endoscopy (EGD) and for further recommendations regarding continuing Protonix You have severe fatty liver (hepatic steatosis) related to alcohol use. Please follow-up with gastroenterology as an outpatient. Please avoid all alcohol use Labs through PCP in 1 week: CBC, CMP, MG, VITAMIN D, VITAMIN B12 Total Time Total Time Spent Total Time Spent (In Minutes): 40 minutes Total Time Includes: Examination of the Patient, Discharge Planning, Medication Reconciliation and Other Coding Level of Care Code 12814 INP/OBS DISCH >30 MIN Diagnoses Alcohol withdrawal F10.939 Complication of substance-induced condition: with unspecified complication Alcohol use disorder F10.90 Hepatic steatosis K76.0 Elevated liver enzymes R74.8 Coffee ground emesis K92.0 Depression F32.A PTSD (post-traumatic stress disorder) F43.10 Hypomagnesemia E83.42
[2024-01-04 14:14] VITALS: PULSE 83
[2024-01-04] MEDS ORDERED: PHENobarbitaL 30 MG TAB PO SCH (23:00)
[2024-01-05 16:16] LABS: 7-Aminoclonaz, Confirm NEGATIVE ng/mL (<25); Amobarbital, Urine Conf NEGATIVE ng/mL (<100); Butalbital, Urine NEGATIVE ng/mL (<100); Hydro-Alp Ur, GC/MS NEGATIVE ng/mL (<25); Hydroxyethylflurazepam, Conf NEGATIVE ng/mL (<50); Hydroxymidazolam Ur, GC/MS NEGATIVE ng/mL (<50); Hydroxytriazolam NEGATIVE ng/mL (<50); Lorazepam, Ur GC/MS 173 ng/mL (<50); Nordiazepam, Confirm NEGATIVE ng/mL (<50); Oxazepam Ur, GC/MS 73 ng/mL (<50); Pentobarbital, Urine Conf NEGATIVE ng/mL (<100); Phenobarbital, Urine >5000 ng/mL (<100); Secobarbital, Urine Conf NEGATIVE ng/mL (<100); Temazepam, Confirm NEGATIVE ng/mL (<50)
== END 2024-01-04 17:49 | disposition home or self-care (01) | DRG 897 ==
LOC: ED 11:06 → 4W 15:18 → SUATTDRO 15:18 → 4W 16:55